=== PATIENT | male | born 1940 | race Caucasian/White ===

== ENCOUNTER → 2020-01-29 08:38 | Outpatient (BNVA) | payer MEDICARE, SELFPAY | PROVIDERS: Family Provider Family Medicine; PCP Family Medicine; Visit Provider Dermatology | DX: Z79.899 Other long term (current) drug therapy (principal) | CPT/HCPCS: 80061 ==

== ENCOUNTER 2020-05-16 17:56 | Inpatient (IN) | payer MEDICARE, SELFPAY ==
[2020-05-16] VITALS (7 sets, daily range): BP systolic 102–199; BP diastolic 57–68; PULSE 70–85; RESP 17–18; TEMP 36.6–37.7; O2SAT 96–196; BMI 19.0
--- NOTE | 2020-05-16 18:29 | XRR_ITS ---
PROCEDURE INFORMATION: Exam: XR Chest, 1 View Exam date and time: 05/16/2020 6:38 PM Age: 80 years old Clinical indication: Dyspnea; Additional info: Weakness TECHNIQUE: Imaging protocol: XR of the chest Views: 1 view. COMPARISON: CR Chest 1 [place] [id number] 12/28/2017 11:19 AM FINDINGS: Lungs: Unremarkable. No consolidation. Pleural space: Unremarkable. No pleural effusion. No pneumothorax. Heart/Mediastinum: Unremarkable. No cardiomegaly. Bones/joints: Unremarkable. XR/XR chest 1V portable [id number] IMPRESSION: No acute findings.
--- NOTE | 2020-05-16 18:31 | ED_ITS ---
Documented by User: JAJA Campbell 05/17/20 04:50 HPI - Weakness General: Chief complaint: Weakness Stated complaint: POSS STROKE SYMPTOMS Time Seen by Provider: 05/16/20 18:29 History of Present Illness: HPI Narrative: Patient is a 80-year-old male who comes to the ED with generalized weakness, low blood pressure and leg swelling. Patient has a past medical history of prior DVTs, GERD, hypertension, hyperlipidemia. Patient says approximately 2 to 3 days ago started noticing increased generalized weakness and low blood pressure. Patient also says he has had an increase in bilateral leg swelling with more severe swelling in the right leg. He also endorses having some increased shortness of breath upon exertion over the past couple days as well. Patient has also had diarrhea for approximately 2 weeks, but denies constipation or blood in the stool. He is had some nausea the past couple days as well with no episodes of emesis. Patient also describes having some trapezius muscle pain bilaterally. Denies fever, chi lls, chest pain, abdominal pain, dysuria or hematuria. Patient does endorse not drinking enough fluids daily. Associated symptoms: Reports nausea; Denies chest pain, chills, dysuria, fever(s), headache(s) or vomiting Review of Systems Const: Reports: fatigue; Denies: fever(s) or chills Eyes: Denies: change in vision or eye discomfort ENMT: Denies: throat pain, odynophagia, nasal discharge or nasal congestion Card: Reports: edema and dyspnea on exertion; Denies: chest pain, palpitations, swelling of feet/ankles or orthopnea Resp: Denies: dyspnea, productive cough or non-productive cough GI: Reports: nausea and diarrhea; Denies: abdominal pain, vomiting, constipation or hematochezia : Denies: flank pain, difficulty urinating, dysuria or hematuria Musc: Reports: extremity swelling (Lower extremity edema bilaterally. Right leg more edema than left.) and other (Bilateral trapezius muscle soreness.); Denies: neck pain or back pain Skin/Breast: Denies: rash or new lesions Neuro: Denies: headache(s), numbness in extremities or weakness in extremities PFS ED PFSH: Medical History Anemia Chronic kidney disease, stage III (moderate) Diarrhea Dyslipidemia GERD (gastroesophageal reflux disease) History of DVT (deep vein thrombosis) Hypertension Polyarteritis nodosa Skin cancer Surgical History History of hernia repair History of hip surgery Family History Other Cancer Social History Smoking and tobacco status: never smoked Alcohol intake: never Marital status: Physical Exam Const: COMMON NORMALS: patient oriented x3 and alert GENERAL APPEARANCE: cooperative and comfortable HENMT: COMMON NORMALS: normocephalic HEAD & SCALP: normocephalic MOUTH: Normal oral and palatal mucosa present THROAT: posterior oropharynx normal and uvula midline Eye: COMMON NORMALS: Equal, round and reactive pupils present PUPIL: Yes Equal, round and reactive pupils present Neck/C-Spine: COMMON NORMALS: supple GENERAL: Yes normal visual inspection Resp: COMMON NORMALS: normal respiratory effort, No retractions, No use of accessory muscles and clear to auscultation bilaterally AUSCULTATION: clear to auscultation bilaterally Cardio: COMMON NORMALS: regular rate, regular rhythm, S1 normal heart sound present, S2 normal heart sound present, No gallops present (Cardio), No clicks present (Cardio), No murmurs present (Cardio) and Peripheral pulses 2+ throughout RATE: regular rate RHYTHM: regular rhythm HEART SOUNDS: S1 normal heart sound present and S2 normal heart sound present PERIPHERAL PULSES: Peripheral pulses 2+ throughout GI: COMMON NORMALS: Normal to inspection, nondistended, normoactive bowel sounds present, Soft to palpation, non-tender and no masses PALPATION: Yes Soft to palpation : COMMON NORMALS: Yes no CVA tenderness BLADDER/KIDNEY EXAM: Yes no CVA tenderness Back/Pelvis: COMMON NORMALS: no CVA tenderness Extremity: GENERAL: Yes normal exam except as noted and Yes edema (Right lower extremity edema 3+ pitting. Left lower extremity 2+ pitting) Neuro: COMMON NORMALS: patient oriented x3 and moves all extremities SENSORIUM/ORIENTATION: Yes alert Skin: GENERAL SKIN EXAM: dry skin Procedures Stool Hemoccult Procedural Steps Taken: stool placed in appropriate test area, developer placed on stool and control areas and controls appropriately positive and negative Hemoccult result: negative Additional Comments: Course Vital Signs: Vital signs: Vital Signs Temperature 98.6 F 05/17/20 04:10 Pulse Rate 66 05/17/20 04:45 Respiratory Rate 13 05/17/20 04:45 Blood Pressure 145/74 05/17/20 04:45 Pulse Oximetry 98 05/17/20 04:45 MDM - Weakness MDM Narrative: Medical decision making narrative: pt is a 80-year-old male comes to the ED with generalized weakness and bilateral leg edema. Labs are drawn. In the ED his hemoglobin was 4.2. He also had a creatinine of 3.6, and carbon dioxide of 13. BNP was 7835. CV venous duplex lower extremity showed a blood clot in the right peroneal vein. Chest x-ray showed no acute findings. CT of the head showed no acute intracranial abnormalities. CT of abdomen pelvis showed cardiomegaly along with soft tissue anasarca and intraperitoneal ascites raises concern for congestive heart failure. EKG showed sinus rhythm with no ST segment elevation or depression seen. Stool Hemoccult test was negative. I discussed patient case with Dr. Guido due to complexity and severity of patient he helped manage care of patient. 2 units of blood were given here in the ED. Dr. Guido placed the admit orders for patient. Lab Data: Attestation: I reviewed the patient's lab results. Lab results narrative: Patient had a negative stool Hemoccult test while here in the ED. Labs: Lab Results 05/16/20 05/16/20 05/16/20 Range/Units 19:16 19:16 19:16 WBC 3.9 L (4.0-10.0) 10^3/ uL RBC 1.46 L (4.1-5.3) 10^6/u L Hgb 4.2 L* (11.7-16.6) g/dL Hct 15.2 L* (42.0-52.0) % MCV 104.1 H (80-94) fL MCH 28.8 (28.0-34.0) pg MCHC 27.6 L (30.0-36.0) g/dL RDW 16.3 H (12.1-15.1) % Plt Count 223 (130-400) 10^3/c mm MPV 9.2 (7.4-10.4) fL Neut % (Auto) 83.7 % Lymph % (Auto) 9.9 % [place] % (Auto) 5.4 % Eos % (Auto) 0.5 % Baso % (Auto) 0.0 % Neut # (Auto) 3.28 (1.8-7.7) 10^3/u L Lymph # (Auto) 0.4 L (0.8-4.8) 10^3/u L [place] # (Auto) 0.2 (0.2-0.9) 10^3/u L Eos # (Auto) 0.0 (0.0-0.8) 10^3/u L Baso # (Auto) 0.0 (0.0-0.1) 10^3/u L Nucleated RBC % (a uto) 0 % Nucleated RBCs # 0.0 /100WBC ESR (0-10) mm/hr Specimen Type Sample Site ABG pH (7.35-7.45) ABG pCO2 (35-45) mmHg ABG pO2 (80.0-100.0) mmH g ABG HCO3 (22-26) mmol/L [employer] Associate ID Sodium 138 (136-145) mmol/L Potassium 3.9 (3.5-5.1) mmol/L Chloride 108 H (98-107) mmol/L Carbon Dioxide 13 L (22-29) mmol/L Anion Gap 20.9 H (5-19) BUN 53 H (8-23) mg/dL Creatinine 3.6 H (0.7-1.2) mg/dL GFR Calculation Not Reportable Glucose 117 H (65-115) mg/dL Calculated Osmolal ity 285 (285-295) mOsm/k g Lactic Acid (0.5-2.2) mmol/L Calcium 6.5 L (8.5-10.5) mg/dL Phosphorus (2.5-4.5) mg/dL Magnesium (1.7-2.3) mg/dL Iron (59-158) ug/dL Ferritin (30-400) ng/mL Total Bilirubin 0.2 (0.15-1.2) mg/dL AST 9 (0-40) U/L ALT 6 (0-41) U/L Alkaline Phosphata se 78 (40-130) IU/L Lactate Dehydrogen ase (135-225) U/L Creatine Kinase (39-308) U/L Troponin T Baselin e 311 H* (0-15) ng/L Troponin T 120 Min [place] (0-15) ng/L Delta Troponin T (0-10) ABS# C-Reactive Protein (0.0-4.9) mg/L NT-Pro-B Natriuret Pep 7835 H (0-450) pg/mL Total Protein 5.6 L (6.6-8.7) g/dL Albumin 3.8 (3.5-5.2) g/dL Globulin 1.8 (1.3-4.6) g/dL Vitamin B12 (232-1245) pg/mL 25-OH Vitamin D To [place] (30-100) ng/mL Folate (4.5-32.2) ng/mL TSH (0.27-4.20) uIU/ mL Blood Type Rho(D) Type Antibody Screen Crossmatch 05/16/20 05/16/20 05/16/20 Range/Units 19:16 19:16 19:16 WBC (4.0-10.0) 10^3/ uL RBC (4.1-5.3) 10^6/u L Hgb (11.7-16.6) g/dL Hct (42.0-52.0) % MCV (80-94) fL MCH (28.0-34.0) pg MCHC (30.0-36.0) g/dL RDW (12.1-15.1) % Plt Count (130-400) 10^3/c mm MPV (7.4-10.4) fL Neut % (Auto) % Lymph % (Auto) % [place] % (Auto) % Eos % (Auto) % Baso % (Auto) % Neut # (Auto) (1.8-7.7) 10^3/u L Lymph # (Auto) (0.8-4.8) 10^3/u L [place] # (Auto) (0.2-0.9) 10^3/u L Eos # (Auto) (0.0-0.8) 10^3/u L Baso # (Auto) (0.0-0.1) 10^3/u L Nucleated RBC % (a uto) % Nucleated RBCs # /100WBC ESR (0-10) mm/hr Specimen Type Sample Site ABG pH (7.35-7.45) ABG pCO2 (35-45) mmHg ABG pO2 (80.0-100.0) mmH g ABG HCO3 (22-26) mmol/L [employer] Associate ID Sodium (136-145) mmol/L Potassium (3.5-5.1) mmol/L Chloride (98-107) mmol/L Carbon Dioxide (22-29) mmol/L Anion Gap (5-19) BUN (8-23) mg/dL Creatinine (0.7-1.2) mg/dL GFR Calculation Glucose (65-115) mg/dL Calculated Osmolal ity (285-295) mOsm/k g Lactic Acid 1.9 (0.5-2.2) mmol/L Calcium (8.5-10.5) mg/dL Phosphorus 4.8 H (2.5-4.5) mg/dL Magnesium 1.1 L (1.7-2.3) mg/dL Iron 161 H (59-158) ug/dL Ferritin 326 (30-400) ng/mL Total Bilirubin (0.15-1.2) mg/dL AST (0-40) U/L ALT (0-41) U/L Alkaline Phosphata se (40-130) IU/L Lactate Dehydrogen ase 260 H (135-225) U/L Creatine Kinase 134 (39-308) U/L Troponin T Baselin e (0-15) ng/L Troponin T 120 Min [place] (0-15) ng/L Delta Troponin T (0-10) ABS# C-Reactive Protein 2.1 (0.0-4.9) mg/L NT-Pro-B Natriuret Pep (0-450) pg/mL Total Protein (6.6-8.7) g/dL Albumin (3.5-5.2) g/dL Globulin (1.3-4.6) g/dL Vitamin B12 923 (232-1245) pg/mL 25-OH Vitamin D To [place] 14 L (30-100) ng/mL Folate 7.5 (4.5-32.2) ng/mL TSH 2.88 (0.27-4.20) uIU/ mL Blood Type Rho(D) Type Antibody Screen Crossmatch 05/16/20 05/16/2020 Range/Units 19:50 20:45 21:29 WBC (4.0-10.0) 10^3/ uL RBC (4.1-5.3) 10^6/u L Hgb (11.7-16.6) g/dL Hct (42.0-52.0) % MCV (80-94) fL MCH (28.0-34.0) pg MCHC (30.0-36.0) g/dL RDW (12.1-15.1) % Plt Count (130-400) 10^3/c mm MPV (7.4-10.4) fL Neut % (Auto) % Lymph % (Auto) % [place] % (Auto) % Eos % (Auto) % Baso % (Auto) % Neut # (Auto) (1.8-7.7) 10^3/u L Lymph # (Auto) (0.8-4.8) 10^3/u L [place] # (Auto) (0.2-0.9) 10^3/u L Eos # (Auto) (0.0-0.8) 10^3/u L Baso # (Auto) (0.0-0.1) 10^3/u L Nucleated RBC % (a uto) % Nucleated RBCs # /100WBC ESR (0-10) mm/hr Specimen Type Arterial Sample Site Radial, left ABG pH 7.26 L (7.35-7.45) ABG pCO2 27.9 L (35-45) mmHg ABG pO2 101.0 H (80.0-100.0) mmH g ABG HCO3 12.3 L (22-26) mmol/L Drake Test Pos Geric[employer] Aide Teacher ID [email or web address] Sodium (136-145) mmol/L Potassium (3.5-5.1) mmol/L Chloride (98-107) mmol/L Carbon Dioxide (22-29) mmol/L Anion Gap (5-19) BUN (8-23) mg/dL Creatinine (0.7-1.2) mg/dL GFR Calculation Glucose (65-115) mg/dL Calculated Osmolal ity (285-295) mOsm/k g Lactic Acid (0.5-2.2) mmol/L Calcium (8.5-10.5) mg/dL Phosphorus (2.5-4.5) mg/dL Magnesium (1.7-2.3) mg/dL Iron (59-158) ug/dL Ferritin (30-400) ng/mL Total Bilirubin (0.15-1.2) mg/dL AST (0-40) U/L ALT (0-41) U/L Alkaline Phosphata se (40-130) IU/L Lactate Dehydrogen ase (135-225) U/L Creatine Kinase (39-308) U/L Troponin T Baselin e (0-15) ng/L Troponin T 120 Min [place] 291.9 H (0-15) ng/L Delta Troponin T -19.1 L (0-10) ABS# C-Reactive Protein (0.0-4.9) mg/L NT-Pro-B Natriuret Pep (0-450) pg/mL Total Protein (6.6-8.7) g/dL Albumin (3.5-5.2) g/dL Globulin (1.3-4.6) g/dL Vitamin B12 (232-1245) pg/mL 25-OH Vitamin D To [place] (30-100) ng/mL Folate (4.5-32.2) ng/mL TSH (0.27-4.20) uIU/ mL Blood Type A Positive Rho(D) Type Positive Antibody Screen Negative Crossmatch See Detail 05/16/20 05/16/20 Range/Units 21:49 21:49 WBC 4.1 (4.0-10.0) 10^3/ uL RBC 1.35 L (4.1-5.3) 10^6/u L Hgb 4.0 L* (11.7-16.6) g/dL Hct 14.1 L* (42.0-52.0) % MCV 104.4 H (80-94) fL MCH 29.6 (28.0-34.0) pg MCHC 28.4 L (30.0-36.0) g/dL RDW 16.2 H (12.1-15.1) % Plt Count 208 (130-400) 10^3/c mm MPV 9.7 (7.4-10.4) fL Neut % (Auto) 82.4 % Lymph % (Auto) 10.8 % [place] % (Auto) 5.1 % Eos % (Auto) 0.7 % Baso % (Auto) 0.0 % Neut # (Auto) 3.36 (1.8-7.7) 10^3/u L Lymph # (Auto) 0.4 L (0.8-4.8) 10^3/u L [place] # (Auto) 0.2 (0.2-0.9) 10^3/u L Eos # (Auto) 0.0 (0.0-0.8) 10^3/u L Baso # (Auto) 0.0 (0.0-0.1) 10^3/u L Nucleated RBC % (a uto) 0 % Nucleated RBCs # 0.0 /100WBC ESR > 120 H (0-10) mm/hr Specimen Type Sample Site ABG pH (7.35-7.45) ABG pCO2 (35-45) mmHg ABG pO2 (80.0-100.0) mmH g ABG HCO3 (22-26) mmol/L [employer] Associate ID Sodium (136-145) mmol/L Potassium (3.5-5.1) mmol/L Chloride (98-107) mmol/L Carbon Dioxide (22-29) mmol/L Anion Gap (5-19) BUN (8-23) mg/dL Creatinine (0.7-1.2) mg/dL GFR Calculation Glucose (65-115) mg/dL Calculated Osmolal ity (285-295) mOsm/k g Lactic Acid (0.5-2.2) mmol/L Calcium (8.5-10.5) mg/dL Phosphorus (2.5-4.5) mg/dL Magnesium (1.7-2.3) mg/dL Iron (59-158) ug/dL Ferritin (30-400) ng/mL Total Bilirubin (0.15-1.2) mg/dL AST (0-40) U/L ALT (0-41) U/L Alkaline Phosphata se (40-130) IU/L Lactate Dehydrogen ase (135-225) U/L Creatine Kinase (39-308) U/L Troponin T Baselin e (0-15) ng/L Troponin T 120 Min [place] (0-15) ng/L Delta Troponin T (0-10) ABS# C-Reactive Protein (0.0-4.9) mg/L NT-Pro-B Natriuret Pep (0-450) pg/mL Total Protein (6.6-8.7) g/dL Albumin (3.5-5.2) g/dL Globulin (1.3-4.6) g/dL Vitamin B12 (232-1245) pg/mL 25-OH Vitamin D To [place] (30-100) ng/mL Folate (4.5-32.2) ng/mL TSH (0.27-4.20) uIU/ mL Blood Type Rho(D) Type Antibody Screen Crossmatch Imaging Data^: CXR: Attestation: I personally reviewed and interpreted this imaging study as follows: Radiologist's impression: [address] [address] XRay Report Signed Patient: Good Alegre Unit #: [id number] : 1940 Age/Sex: 80 / M ADM Date: 05/16/20 Loc: ER Room/Bed: Attending Dr: Ordering Provider/Ordering MD: Caesar Vick Date of Service: 05/16/20 Procedure(s): XR chest 1V portable [id number] Accession Number(s): [id number] Report Number: [id number] PROCEDURE INFORMATION: Exam: XR Chest, 1 View Exam date and time: 05/16/2020 6:38 PM Age: 80 years old Clinical indication: Dyspnea; Additional info: Weakness TECHNIQUE: Imaging protocol: XR of the chest Views: 1 view. COMPARISON: CR Chest 1 [place] [id number] 12/28/2017 11:19 AM FINDINGS: Lungs: Unremarkable. No consolidation. Pleural space: Unremarkable. No pleural effusion. No pneumothorax. Heart/Mediastinum: Unremarkable. No cardiomegaly. Bones/joints: Unremarkable. XR/XR chest 1V portable [id number] IMPRESSION: No acute findings. Dictated By: Mikey Drake Signed By: Mikey Drake Signed Date/Time: 05/16/201908 DD/ 06 US Vascular: Attestation: I personally reviewed and interpreted this imaging study as follows: Radiologist's impression: Ultrasound venous duplex bilateral lower extremities.?Prelim report. DVT seen on right leg in the popliteal. CT Head: Attestation: I personally reviewed and interpreted this imaging study as follows: Radiologist's impression: [address] [address] [address] Scan Report Signed Patient: Good Alegre Unit #: [id number] : 1940 Age/Sex: 80 / M ADM Date: 05/16/20 Loc: ER Room/Bed: Attending Dr: Ordering Provider/Ordering MD: Caesar Vick Date of Service: 05/16/20 Procedure(s): CT head wo con* [id number] Accession Number(s): [id number] Report Number: [id number] PROCEDURE INFORMATION: Exam: CT Head Without Contrast Exam date and time: 05/16/2020 8:17 PM Age: 80 years old Clinical indication: Patient HX: Weakness, hypotensive TECHNIQUE: Imaging protocol: Computed tomography of the head without contrast. Radiation optimization: All CT scans at this facility use at least one of these dose optimization techniques: automated exposure control; mA and/or kV adjustment per patient size (includes targeted exams where dose is matched to clinical indication); or iterative reconstruction. COMPARISON: No relevant prior studies available. RADIATION DOSE METRICS: Total DLP (mGy-cm): 854.92 FINDINGS: Brain: There is volume loss and periventricular low density compatible with chronic small vessel disease changes. There is no acute hemorrhage, edema or mass effect. Ventricles: Normal. No ventriculomegaly. Bones/joints: Unremarkable. No acute fracture. Sinuses: Visualized sinuses are unremarkable. No fluid levels. Mastoid air cells: There is patchy opacification left mastoid air cells. The right mastoid air cells are clear. Soft tissues: Unremarkable. CT/CT head wo con* [id number] IMPRESSION: 1. No acute intracranial abnormality. 2. There is patchy opacification left mastoid air cells. Radiation Dose CTDIVOL = (mGy): DLP = 854.92 (mGy-cm) Dictated By: Shavonne Salas Signed By: Shavonne Salas Signed Date/Time: 05/16/202052 DD/ 50 CT Abd/Pel: Attestation: I personally reviewed and interpreted this imaging study as follows: Radiologist's impression: [facility] [address] [place] [address] CT Scan Report Signed Patient: Good Alegre Unit #: [id number] : 1940 Age/Sex: 80 / M ADM Date: 05/16/20 Loc: ER Room/Bed: Attending Dr: Ordering Provider/Ordering MD: Caesar Vick Date of Service: 05/16/20 Procedure(s): CT abdomen pelvis wo con [id number] Accession Number(s): [id number] Report Number: [id number] PROCEDURE INFORMATION: Exam: CT Abdomen And Pelvis Without Contrast Exam date and time: 05/16/2020 8:17 PM Age: 80 years old Clinical indication: Prior surgery; Surgery date: 6+ months; Surgery type: Pelvis, hernia; Patient HX: Wt loss, hypotensive - diarrhea x 2 weeks TECHNIQUE: Imaging protocol: Computed tomography of the abdomen and pelvis without contrast. Radiation optimization: All CT scans at this facility use at least one of these dose optimization techniques: automated exposure control; mA and/or kV adjustment per patient size (includes targeted exams where dose is matched to clinical indication); or iterative reconstruction. COMPARISON: US Abdomen* [id number] 11/07/2016 7:22 AM RADIATION DOSE METRICS: Total DLP (mGy-cm): 265.21 FINDINGS: Pleural space: There is a trace right pleural effusion. Heart: Cardiomegaly. Liver: Incidental splenic and hepatic calcified granulomata. Gallbladder and bile ducts: The gallbladder is distended. Gallbladder wall is not well seen. Pancreas: Pancreas is not well seen. Spleen: Normal. No splenomegaly. Adrenals: Normal. No mass. Kidneys and ureters: Normal. No hydronephrosis. Stomach and bowel: Colonic constipation is present. Appendix: No evidence of appendicitis. Intraperitoneal space: There is a small amount of ascites in the abdomen/pelvis. Vasculature: Calcified plaque is present within multiple vascular structures. Lymph nodes: Unremarkable. No enlarged lymph nodes. Bladder: Unremarkable as visualized. Reproductive: Unremarkable as visualized. Bones/joints: Chronic pelvic fractures. There is a fixation screws through the right sacroiliac joint. Soft tissues: There is soft tissue anasarca. CT/CT abdomen pelvis wo con [id number] IMPRESSION: 1. Cardiomegaly with soft tissue anasarca and intraperitoneal ascites raises concern for congestive heart failure. Please correlate clinically. There is a trace right pleural effusion. 2. The gallbladder is distended and the gallbladder wall is not well seen. Consider right upper quadrant ultrasound for further evaluation as clinically warranted. 3. Colonic constipation is present. Radiation Dose CTDIVOL = (mGy): DLP = 265.21 (mGy-cm) Dictated By: Myra Calix MD Signed By: Myra Calix MD Signed Date/Time: 05/16/202055 DD/ 54 EKG Data^: EKG 1: Attestation: I personally reviewed and interpreted this EKG as follows: EKG interpretation date: 05/16/20 Interpretation: Sinus rhythm with sinus arrhythmia, 80 bpm, no ST segment elevation or depression seen. Discharge Plan Discharge Patient Disposition: Admitted As Inpatient Admit Provider: Trino Crocker Clinical Impression: Anemia Qualifiers: Anemia type: unspecified type Qualified Code(s): D64.9 - Anemia, unspecified Condition: Stable Discharge Date/Time: 05/17/20 02:35 Coding Level of Care Code ED Planning Feeder for Chg Fwd Exam Comprehensive Documented by User: Aftab Guido DO 05/17/20 05:05 HPI - Weakness General: Chief complaint: Weakness Stated complaint: POSS STROKE SYMPTOMS Time Seen by Provider: 05/16/20 18:29 PFSH ED PFSH: Medical History Anemia Chronic kidney disease, stage III (moderate) Diarrhea Dyslipidemia GERD (gastroesophageal reflux disease) History of DVT (deep vein thrombosis) Hypertension Polyarteritis nodosa Skin cancer Surgical History History of hernia repair History of hip surgery Family History Other Cancer Social History Smoking and tobacco status: never smoked Alcohol intake: never Marital status: Course Consultations: Consultation #1: Obi Vital Signs: Vital signs: Vital Signs Temperature 98.6 F 05/17/20 04:10 Pulse Rate 66 05/17/20 04:45 Respiratory Rate 13 05/17/20 04:45 Blood Pressure 145/74 05/17/20 04:45 Pulse Oximetry 98 05/17/20 04:45 MDM - Weakness MDM Narrative: Medical decision making narrative: 80-year-old male checked out to be my Mr. KAMILA Vick. I agree with his history, evaluation, and work-up. The patient was found to be mildly hypotensive, with a hemoglobin of 4.2. His BUN and creatinine are significantly elevated. His bicarbonate level is down to 13. His chest x-ray and CT of the belly are indicative of congestive heart failure. His troponin was significantly elevated as well. Believe most of the lab abnormalities have to do with a severely low hemoglobin. Hemoccult was negative in the ER. No evidence of GI bleeding by history either. His hemoglobin was 8 last August. He has experienced significant weight loss recently. On further investigation, he has not history of polyarteritis nodosa, and has been on immune modifying drugs. It is feasible that he could have bone marrow failure leading to his profound anemia. He is crossmatched for 2 units and transfusion is begun in the ER. We will get a repeat hemoglobin following those 2 units, to see how many more units he may need, and will need to watch for fluid overload as well. Hospitalist was consulted, and is seen the patient in the ER. Lab Data: Labs: Lab Results 05/16/20 05/16/20 05/16/20 Range/Units 19:16 19:16 19:16 WBC 3.9 L (4.0-10.0) 10^3/ uL RBC 1.46 L (4.1-5.3) 10^6/u L Hgb 4.2 L* (11.7-16.6) g/dL Hct 15.2 L* (42.0-52.0) % MCV 104.1 H (80-94) fL MCH 28.8 (28.0-34.0) pg MCHC 27.6 L (30.0-36.0) g/dL RDW 16.3 H (12.1-15.1) % Plt Count 223 (130-400) 10^3/c mm MPV 9.2 (7.4-10.4) fL Neut % (Auto) 83.7 % Lymph % (Auto) 9.9 % [place] % (Auto) 5.4 % Eos % (Auto) 0.5 % Baso % (Auto) 0.0 % Neut # (Auto) 3.28 (1.8-7.7) 10^3/u L Lymph # (Auto) 0.4 L (0.8-4.8) 10^3/u L [place] # (Auto) 0.2 (0.2-0.9) 10^3/u L Eos # (Auto) 0.0 (0.0-0.8) 10^3/u L Baso # (Auto) 0.0 (0.0-0.1) 10^3/u L Nucleated RBC % (a uto) 0 % Nucleated RBCs # 0.0 /100WBC ESR (0-10) mm/hr Specimen Type Sample Site ABG pH (7.35-7.45) ABG pCO2 (35-45) mmHg ABG pO2 (80.0-100.0) mmH g ABG HCO3 (22-26) mmol/L [employer] Associate ID Sodium 138 (136-145) mmol/L Potassium 3.9 (3.5-5.1) mmol/L Chloride 108 H (98-107) mmol/L Carbon Dioxide 13 L (22-29) mmol/L Anion Gap 20.9 H (5-19) BUN 53 H (8-23) mg/dL Creatinine 3.6 H (0.7-1.2) mg/dL GFR Calculation Not Reportable Glucose 117 H (65-115) mg/dL Calculated Osmolal ity 285 (285-295) mOsm/k g Lactic Acid (0.5-2.2) mmol/L Calcium 6.5 L (8.5-10.5) mg/dL Phosphorus (2.5-4.5) mg/dL Magnesium (1.7-2.3) mg/dL Iron (59-158) ug/dL Ferritin (30-400) ng/mL Total Bilirubin 0.2 (0.15-1.2) mg/dL AST 9 (0-40) U/L ALT 6 (0-41) U/L Alkaline Phosphata se 78 (40-130) IU/L Lactate Dehydrogen ase (135-225) U/L Creatine Kinase (39-308) U/L Troponin T Baselin e 311 H* (0-15) ng/L Troponin T 120 Min [place] (0-15) ng/L Delta Troponin T (0-10) ABS# C-Reactive Protein (0.0-4.9) mg/L NT-Pro-B Natriuret Pep 7835 H (0-450) pg/mL Total Protein 5.6 L (6.6-8.7) g/dL Albumin 3.8 (3.5-5.2) g/dL Globulin 1.8 (1.3-4.6) g/dL Vitamin B12 (232-1245) pg/mL 25-OH Vitamin D [place] (30-100) ng/mL Folate (4.5-32.2) ng/mL TSH (0.27-4.20) uIU/ mL Blood Type Rho(D) Type Antibody Screen Crossmatch 05/16/20 05/16/20 05/16/20 Range/Units 19:16 19:16 19:16 WBC (4.0-10.0) 10^3/ uL RBC (4.1-5.3) 10^6/u L Hgb (11.7-16.6) g/dL Hct (42.0-52.0) % MCV (80-94) fL MCH (28.0-34.0) pg MCHC (30.0-36.0) g/dL RDW (12.1-15.1) % Plt Count (130-400) 10^3/c mm MPV (7.4-10.4) fL Neut % (Auto) % Lymph % (Auto) % [place] % (Auto) % Eos % (Auto) % Baso % (Auto) % Neut # (Auto) (1.8-7.7) 10^3/u L Lymph # (Auto) (0.8-4.8) 10^3/u L [place] # (Auto) (0.2-0.9) 10^3/u L Eos # (Auto) (0.0-0.8) 10^3/u L Baso # (Auto) (0.0-0.1) 10^3/u L Nucleated RBC % (a uto) % Nucleated RBCs # /100WBC ESR (0-10) mm/hr Specimen Type Sample Site ABG pH (7.35-7.45) ABG pCO2 (35-45) mmHg ABG pO2 (80.0-100.0) mmH g ABG HCO3 (22-26) mmol/L [employer] Associate ID Sodium (136-145) mmol/L Potassium (3.5-5.1) mmol/L Chloride (98-107) mmol/L Carbon Dioxide (22-29) mmol/L Anion Gap (5-19) BUN (8-23) mg/dL Creatinine (0.7-1.2) mg/dL GFR Calculation Glucose (65-115) mg/dL Calculated Osmolal ity (285-295) mOsm/k g Lactic Acid 1.9 (0.5-2.2) mmol/L Calcium (8.5-10.5) mg/dL Phosphorus 4.8 H (2.5-4.5) mg/dL Magnesium 1.1 L (1.7-2.3) mg/dL Iron 161 H (59-158) ug/dL Ferritin 326 (30-400) ng/mL Total Bilirubin (0.15-1.2) mg/dL AST (0-40) U/L ALT (0-41) U/L Alkaline Phosphata se (40-130) IU/L Lactate Dehydrogen ase 260 H (135-225) U/L Creatine Kinase 134 (39-308) U/L Troponin T Baselin e (0-15) ng/L Troponin T 120 Min [place] (0-15) ng/L Delta Troponin T (0-10) ABS# C-Reactive Protein 2.1 (0.0-4.9) mg/L NT-Pro-B Natriuret Pep (0-450) pg/mL Total Protein (6.6-8.7) g/dL Albumin (3.5-5.2) g/dL Globulin (1.3-4.6) g/dL Vitamin B12 923 (232-1245) pg/mL 25-OH Vitamin D To kosta 14 L (30-100) ng/mL Folate 7.5 (4.5-32.2) ng/mL TSH 2.88 (0.27-4.20) uIU/ mL Blood Type Rho(D) Type Antibody Screen Crossmatch 05/16/20 05/16/20 05/16/20 Range/Units 19:50 20:45 21:29 WBC (4.0-10.0) 10^3/ uL RBC (4.1-5.3) 10^6/u L Hgb (11.7-16.6) g/dL Hct (42.0-52.0) % MCV (80-94) fL MCH (28.0-34.0) pg MCHC (30.0-36.0) g/dL RDW (12.1-15.1) % Plt Count (130-400) 10^3/c mm MPV (7.4-10.4) fL Neut % (Auto) % Lymph % (Auto) % [place] % (Auto) % Eos % (Auto) % Baso % (Auto) % Neut # (Auto) (1.8-7.7) 10^3/u L Lymph # (Auto) (0.8-4.8) 10^3/u L [place] # (Auto) (0.2-0.9) 10^3/u L Eos # (Auto) (0.0-0.8) 10^3/u L Baso # (Auto) (0.0-0.1) 10^3/u L Nucleated RBC % (a uto) % Nucleated RBCs # /100WBC ESR (0-10) mm/hr Specimen Type Arterial Sample Site Radial, left ABG pH 7.26 L (7.35-7.45) ABG pCO2 27.9 L (35-45) mmHg ABG pO2 101.0 H (80.0-100.0) mmH g ABG HCO3 12.3 L (22-26) mmol/L Drake Test Pos Gericare Aide Teacher ID [email or web address] Sodium (136-145) mmol/L Potassium (3.5-5.1) mmol/L Chloride (98-107) mmol/L Carbon Dioxide (22-29) mmol/L Anion Gap (5-19) BUN (8-23) mg/dL Creatinine (0.7-1.2) mg/dL GFR Calculation Glucose (65-115) mg/dL Calculated Osmolal ity (285-295) mOsm/k g Lactic Acid (0.5-2.2) mmol/L Calcium (8.5-10.5) mg/dL Phosphorus (2.5-4.5) mg/dL Magnesium (1.7-2.3) mg/dL Iron (59-158) ug/dL Ferritin (30-400) ng/mL Total Bilirubin (0.15-1.2) mg/dL AST (0-40) U/L ALT (0-41) U/L Alkaline Phosphata se (40-130) IU/L Lactate Dehydrogen ase (135-225) U/L Creatine Kinase (39-308) U/L Troponin T Baselin e (0-15) ng/L Troponin T 120 Min [place] 291.9 H (0-15) ng/L Delta Troponin T -19.1 L (0-10) ABS# C-Reactive Protein (0.0-4.9) mg/L NT-Pro-B Natriuret Pep (0-450) pg/mL Total Protein (6.6-8.7) g/dL Albumin (3.5-5.2) g/dL Globulin (1.3-4.6) g/dL Vitamin B12 (232-1245) pg/mL 25-OH Vitamin D To [place] (30-100) ng/mL Folate (4.5-32.2) ng/mL TSH (0.27-4.20) uIU/ mL Blood Type A Positive Rho(D) Type Positive Antibody Screen Negative Crossmatch See Detail 05/16/20 05/16/20 Range/Units 21:49 21:49 WBC 4.1 (4.0-10.0) 10^3/ uL RBC 1.35 L (4.1-5.3) 10^6/u L Hgb 4.0 L* (11.7-16.6) g/dL Hct 14.1 L* (42.0-52.0) % MCV 104.4 H (80-94) fL MCH 29.6 (28.0-34.0) pg MCHC 28.4 L (30.0-36.0) g/dL RDW 16.2 H (12.1-15.1) % Plt Count 208 (130-400) 10^3/c mm MPV 9.7 (7.4-10.4) fL Neut % (Auto) 82.4 % Lymph % (Auto) 10.8 % [place] % (Auto) 5.1 % Eos % (Auto) 0.7 % Baso % (Auto) 0.0 % Neut # (Auto) 3.36 (1.8-7.7) 10^3/u L Lymph # (Auto) 0.4 L (0.8-4.8) 10^3/u L [place] # (Auto) 0.2 (0.2-0.9) 10^3/u L Eos # (Auto) 0.0 (0.0-0.8) 10^3/u L Baso # (Auto) 0.0 (0.0-0.1) 10^3/u L Nucleated RBC % (a uto) 0 % Nucleated RBCs # 0.0 /100WBC ESR > 120 H (0-10) mm/hr Specimen Type Sample Site ABG pH (7.35-7.45) ABG pCO2 (35-45) mmHg ABG pO2 (80.0-100.0) mmH g ABG HCO3 (22-26) mmol/L [employer] Associate ID Sodium (136-145) mmol/L Potassium (3.5-5.1) mmol/L Chloride (98-107) mmol/L Carbon Dioxide (22-29) mmol/L Anion Gap (5-19) BUN (8-23) mg/dL Creatinine (0.7-1.2) mg/dL GFR Calculation Glucose (65-115) mg/dL Calculated Osmolal ity (285-295) mOsm/k g Lactic Acid (0.5-2.2) mmol/L Calcium (8.5-10.5) mg/dL Phosphorus (2.5-4.5) mg/dL Magnesium (1.7-2.3) mg/dL Iron (59-158) ug/dL Ferritin (30-400) ng/mL Total Bilirubin (0.15-1.2) mg/dL AST (0-40) U/L ALT (0-41) U/L Alkaline Phosphata se (40-130) IU/L Lactate Dehydrogen ase (135-225) U/L Creatine Kinase (39-308) U/L Troponin T Baselin e (0-15) ng/L Troponin T 120 Min [place] (0-15) ng/L Delta Troponin T (0-10) ABS# C-Reactive Protein (0.0-4.9) mg/L NT-Pro-B Natriuret Pep (0-450) pg/mL Total Protein (6.6-8.7) g/dL Albumin (3.5-5.2) g/dL Globulin (1.3-4.6) g/dL Vitamin B12 (232-1245) pg/mL 25-OH Vitamin D To [place] (30-100) ng/mL Folate (4.5-32.2) ng/mL TSH (0.27-4.20) uIU/ mL Blood Type Rho(D) Type Antibody Screen Crossmatch Discharge Plan Discharge Patient Disposition: Admitted As Inpatient Admit Provider: Trino Crocker Clinical Impression: Anemia Qualifiers: Anemia type: unspecified type Qualified Code(s): D64.9 - Anemia, unspecified Condition: Stable Discharge Date/Time: 05/17/20 02:35 Coding Level of Care Code ED Planning Feeder for [place] Fwd Exam Comprehensive
--- NOTE | 2020-05-16 18:50 | USR_ITS ---
PROCEDURE INFORMATION: Exam: US Duplex Lower Extremity Veins, Bilateral Exam date and time: 05/16/2020 6:56 PM Age: 80 years old Clinical indication: Swelling (edema) of limb; Lower extremity, right; Patient HX: PT states he has had prior dvt in the past many years ago. ; Additional info: Leg swelling with clot history TECHNIQUE: Imaging protocol: Real-time duplex ultrasound of the extremities with 2-D wilson scale, color Doppler flow and spectral waveform analysis with image documentation. Complete exam focused on the bilateral lower extremity veins. COMPARISON: No relevant prior studies available. FINDINGS: Right deep veins: The right peroneal vein shows intraluminal thrombus and decreased flow distally. This finding is suspicious for venous thrombus in the peroneal vein. The right common femoral, profundus femoral, and popliteal veins show patency compressibility and flow without sonographic evidence of venous thrombosis. Right superficial veins: Saphenofemoral junction is patent without thrombus. Left deep veins: Unremarkable. The common femoral, femoral, proximal profunda femoral and popliteal veins are patent without thrombus. Normal Doppler waveforms. Normal compressibility and/or augmentation response. Left superficial veins: Saphenofemoral junction is patent without thrombus. Soft tissues: Soft tissue edema is seen in the left [place] US/[place] [id number] IMPRESSION: 1. Positive for venous thrombus in the right peroneal vein 2. The remainder of the examination is negative for venous thrombosis. 3. Soft tissue edema is seen in the left lower leg
[2020-05-16 19:24] LABS: Eosinophils % 0.5 %; Lymphocytes # 0.4 10^3/uL (0.8-4.8); Lymphocytes % 9.9 %; Mean Corpuscular HGB Conc 27.6 g/dL (30.0-36.0); Mean Corpuscular Hemoglobin 28.8 pg (28.0-34.0); Mean Corpuscular Volume 104.1 fL (80-94); Mean Platelet Volume 9.2 fL (7.4-10.4); Monocytes # 0.2 10^3/uL (0.2-0.9); Monocytes % 5.4 %; Neutrophils # 3.28 10^3/uL (1.8-7.7); Neutrophils % 83.7 %; Nucleated Red Blood Cells % 0 %; Platelet Count 223 10^3/cmm (130-400); Red Blood Count 1.46 10^6/uL (4.1-5.3); Red Cell Distribution Width 16.3 % (12.1-15.1); White Blood Count 3.9 10^3/uL (4.0-10.0)
[2020-05-16 19:39] LABS: Hemoglobin 4.2 g/dL (11.7-16.6)
[2020-05-16 19:40] LABS: Hematocrit 15.2 % (42.0-52.0)
--- NOTE | 2020-05-16 19:48 | CTR_ITS ---
PROCEDURE INFORMATION: Exam: CT Abdomen And Pelvis Without Contrast Exam date and time: 05/16/2020 8:17 PM Age: 80 years old Clinical indication: Prior surgery; Surgery date: 6+ months; Surgery type: Pelvis, hernia; Patient HX: Wt loss, hypotensive - diarrhea x 2 weeks TECHNIQUE: Imaging protocol: Computed tomography of the abdomen and pelvis without contrast. Radiation optimization: All CT scans at this facility use at least one of these dose optimization techniques: automated exposure control; mA and/or kV adjustment per patient size (includes targeted exams where dose is matched to clinical indication); or iterative reconstruction. COMPARISON: US Abdomen* [id number] 11/07/2016 7:22 AM RADIATION DOSE METRICS: Total DLP (mGy-cm): 265.21 FINDINGS: Pleural space: There is a trace right pleural effusion. Heart: Cardiomegaly. Liver: Incidental splenic and hepatic calcified granulomata. Gallbladder and bile ducts: The gallbladder is distended. Gallbladder wall is not well seen. Pancreas: Pancreas is not well seen. Spleen: Normal. No splenomegaly. Adrenals: Normal. No mass. Kidneys and ureters: Normal. No hydronephrosis. Stomach and bowel: Colonic constipation is present. Appendix: No evidence of appendicitis. Intraperitoneal space: There is a small amount of ascites in the abdomen/pelvis. Vasculature: Calcified plaque is present within multiple vascular structures. Lymph nodes: Unremarkable. No enlarged lymph nodes. Bladder: Unremarkable as visualized. Reproductive: Unremarkable as visualized. Bones/joints: Chronic pelvic fractures. There is a fixation screws through the right sacroiliac joint. Soft tissues: There is soft tissue anasarca. CT/CT abdomen pelvis wo con [id number] IMPRESSION: 1. Cardiomegaly with soft tissue anasarca and intraperitoneal ascites raises concern for congestive heart failure. Please correlate clinically. There is a trace right pleural effusion. 2. The gallbladder is distended and the gallbladder wall is not well seen. Consider right upper quadrant ultrasound for further evaluation as clinically warranted. 3. Colonic constipation is present. Radiation Dose CTDIVOL = (mGy): DLP = 265.21 (mGy-cm)
[2020-05-16 20:00] LABS: Troponin(5th) Baseline 311 ng/L (0-15)
[2020-05-16 20:08] LABS: Alanine Aminotransferase 6 U/L (0-41); Albumin Level 3.8 g/dL (3.5-5.2); Alkaline Phosphatase 78 IU/L (40-130); Anion Gap 20.9 (5-19); Aspartate Amino Transferase 9 U/L (0-40); Blood Urea Nitrogen 53 mg/dL (8-23); Calcium 6.5 mg/dL (8.5-10.5); Carbon Dioxide 13 mmol/L (22-29); Chloride 108 mmol/L (98-107); Globulin 1.8 g/dL (1.3-4.6); Glucose 117 mg/dL (65-115); NT Pro B Type Natriuretic Pept 7835 pg/mL (0-450); Osmolality Calculated 285 mOsm/kg (285-295); Potassium 3.9 mmol/L (3.5-5.1); Sodium 138 mmol/L (136-145); Total Bilirubin 0.2 mg/dL (0.15-1.2); Total Protein 5.6 g/dL (6.6-8.7)
--- NOTE | 2020-05-16 20:30 | ECG_ITS ---
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 Measurements Intervals [place] Rate: 80 P: -5 NM: 128 QRS: 53 QRSD: 86 T: 60 QT: 380 QTc: 439 Interpretive Statements SINUS RHYTHM WITH SINUS ARRHYTHMIA NONSPECIFIC T-WAVE ABNORMALITY Compared to ECG 12/28/2017 11:24:14 Ventricular premature complex(es) no longer present T-wave abnormality still present Electronically Signed On 05-18-2020 8:29:11 CDT by Gladys Bruner M.D. [id number]
--- NOTE | 2020-05-16 20:48 | PC.NURSE ---
PATIENT RETURNING FROM CT
[2020-05-16 20:54] LABS: ABG PCO2 27.9 mmHg (35-45); ABG PH Result 7.26 (7.35-7.45); Blood Gas Allen Test Pos; Blood Gas Sample Site Radial, left; Blood Gas Sample Type Arterial; HCO3 ABG 12.3 mmol/L (22-26)
[2020-05-16 20:58] LABS: Lactic Sepsis W/Reflex 1.9 mmol/L (0.5-2.2)
[2020-05-16] MEDS: diphenhydrAMINE 50 mg/mL SDV 1mL 25 MG IVP (21:06)
[2020-05-16] MEDS: acetaminophen 325 mg Tablet 650 MG PO (21:07)
[2020-05-16 21:57] LABS: Troponin 5 2HR 291.9 ng/L (0-15); Troponin 5 2HR Delta -19.1 ABS# (0-10)
[2020-05-16 22:13] LABS: Eosinophils % 0.7 %; Lymphocytes # 0.4 10^3/uL (0.8-4.8); Lymphocytes % 10.8 %; Mean Corpuscular HGB Conc 28.4 g/dL (30.0-36.0); Mean Corpuscular Hemoglobin 29.6 pg (28.0-34.0); Mean Corpuscular Volume 104.4 fL (80-94); Mean Platelet Volume 9.7 fL (7.4-10.4); Monocytes # 0.2 10^3/uL (0.2-0.9); Monocytes % 5.1 %; Neutrophils # 3.36 10^3/uL (1.8-7.7); Neutrophils % 82.4 %; Nucleated Red Blood Cells % 0 %; Platelet Count 208 10^3/cmm (130-400); Red Blood Count 1.35 10^6/uL (4.1-5.3); Red Cell Distribution Width 16.2 % (12.1-15.1); White Blood Count 4.1 10^3/uL (4.0-10.0)
[2020-05-16 22:18] LABS: Hematocrit 14.1 % (42.0-52.0)
--- NOTE | 2020-05-16 23:00 | PC.NURSE ---
PATIENT RESTING IN BED WITH FAMILY AT BEDSIDE. BLOOD INFUSING WITHOUT COMPLICATIONS. PATIENT GIVEN PO FLUIDS AND CRACKERS. NO NEEDS EXPRESSED
--- NOTE | 2020-05-16 23:53 | PM.HP ---
Providers/Chief Complaint Primary Care Provider: Maricarmen Meza MD Chief Complaint: POSS STROKE SYMPTOMS History of Present Illness Good Alegre is a 80 year old male presenting with gradual increase in tiredness over the last 2 to 3 months. Is gotten to the point where he is dizzy when he stands, short of breath when he exerts himself just a little bit. He reports he almost fainted today. He has had some ongoing diarrhea. He recently underwent an EGD and colonoscopy secondary to anemia and diarrhea. He states he has diarrhea about once a day. He was prescribed some fluconazole for what is presumed esophageal candidiasis but reports the rest of the evaluation was negative. He denies any chest pain, or fever. He has had some swelling of his feet. History is difficult to obtain from the patient, and the son that is present is not familiar with his history. He does endorse significant weight loss over the last 2 years of about 50 pounds Patient is able to relate to me that he has been on CellCept for quite some time but taken off 3 days ago or so and changed to hydroxychloroquine. He is on this for polyarteritis nodosa. While in the emergency department he was found to be significantly anemic, and transfusion of 6 units packed red blood cells was ordered. I have amended this to 3, with a recheck hemoglobin. Review of Systems General: Reports: 10 or more systems reviewed and unremarkable except in HPI and below Const: Reports: malaise; Denies: fever(s) or chills Eyes: Denies: change in vision ENMT: Denies: throat pain Card: Denies: chest pain Resp: Denies: dyspnea GI: Reports: nausea; Denies: abdominal pain : Denies: flank pain Musc: Reports: extremity pain Skin/Breast: Denies: rash Neuro: Denies: headache(s) Psych: Denies: anxiety Endo: Denies: polyuria Alberto/Lymph: Denies: easy bruising All/Imm: Denies: urticaria Medications/Allergies Home Medications Medication Instructions Recorded Confirmed Last Taken Type aspirin 81 mg tablet,delayed 81 mg PO ONCE 09/12/19 09/12/19 Unknown History release furosemide 20 mg tablet 10 mg PO QAM 09/12/19 09/12/19 Unknown History mycophenolate mofetil 500 mg tablet 1,000 mg PO BID 09/12/19 09/12/19 Unknown History nifedipine 30 mg tablet,extended 30 mg PO BID tab 09/12/19 09/12/19 Unknown History release 24 hr pantoprazole 40 mg tablet,delayed 40 mg PO ONCE 09/12/19 09/12/19 Unknown History release potassium chloride 10 mEq 10 meq PO ONCE tab 09/12/19 09/12/19 Unknown History tablet,extended release pravastatin 20 mg tablet 20 mg PO ONCE 09/12/19 09/12/19 Unknown History sucralfate 1 gram tablet 1 gm PO BID #60 tab 09/12/19 09/12/19 Unknown Rx ondansetron HCl 4 mg tablet 4 mg PO BID PRN #30 tab 10/18/19 Unknown Rx mirtazapine 30 mg tablet 30 mg PO .qhs #30 tab 01/28/20 Unknown Rx Allergies Allergy/AdvReac Type Severity Reaction Status Date / Time No Known Allergies Allergy Unverified 09/12/19 15:25 PFSH Acute PFSH: Medical History (Updated 05/17/20 @ 00:22 by Trino Crocker MD) Anemia Chronic kidney disease, stage III (moderate) Diarrhea Dyslipidemia GERD (gastroesophageal reflux disease) History of DVT (deep vein thrombosis) Hypertension Polyarteritis nodosa Skin cancer Surgical History (Updated 05/17/20 @ 00:14 by Trino Crocker MD) History of hernia repair History of hip surgery Family History (Updated 05/17/20 @ 00:00 by Trino Crocker MD) Other Cancer Social History Smoking and tobacco status: never smoked Alcohol intake: never Marital status: Vitals/I&O/Wt Last Vital Signs Temp 98.2 F 05/16/20 21:46 Pulse 70 05/16/20 21:46 Resp 17 05/16/20 21:46 BP 113/57 05/16/20 21:46 Pulse Ox 100 05/16/20 21:46 Weight last 48 hrs Weight 63.503 kg Physical Exam Narrative: EXAM NARRATIVE: General exam is a white male, no apparent distress, pale appearing HEENT: Pupils equally round. Oropharynx clear. Left ear with abnormality consistent with skin cancer. Neck is supple no lymphadenopathy or thyromegaly Cardiovascular regular rate and rhythm, no murmur Lungs clear no wheezing or crackles. Diminished breath sounds are noted bilaterally. Abdomen is soft nontender with positive bowel sounds. No obvious organomegaly was deferred Extremities no cyanosis clubbing. Significant edema present bilaterally right greater than left Skin no rash Neuro no obvious focal deficits Data : 05/16/20 21:49 05/16/20 19:16 Micro: Microbiology 05/16/20 19:16 Blood Culture - Preliminary Blood SPECIMEN COLLECTED Other data: MCV 104 ABG with pH 7.26, PCO2 28, PO2 101 Calcium 6.5, albumin 3.8. Troponin III 11 with repeat to [address] demonstrates some anasarca, trace right pleural effusion, constipation Venous duplex right peroneal vein DVT. CT head demonstrates no acute changes Chest x-ray no acute findings EKG normal sinus rhythm, normal axis, no acute changes A&P Assessment and plan (1) Anemia: Severe anemia is noted. Stool Hemoccult is negative in the emergency department. Repeat stool Hemoccult was ordered Patient relates he recently had an EGD and colonoscopy that was negative for any evidence of bleeding Note that he is on multiple medications that can be associated with anemia, specifically CellCept which can be associated with pure red cell aplasia Check LDH, haptoglobin, peripheral smear, CBC with manual differential, B12, folate, iron, TIBC, ferritin, serum protein electrophoresis, CRP, sedimentation rate, retic Transfuse 3 units of packed red blood cells, with hemoglobin and hematocrit following. Further transfusion to achieve a hemoglobin greater than 8. Watch for fluid overload. Status: Acute (2) DVT (deep venous thrombosis): DVT found in right leg which patient reports he has had a DVT before. This leg is chronically swollen according to the patient so chronicity is difficult to know. Secondary to severe anemia, will not anticoagulate currently until anemia has been corrected and then will consider. Status: Acute (3) Acute kidney injury: Acute on chronic renal failure. For now transfuse blood. CT abdomen pelvis demonstrated no obstruction. Check creatinine phosphokinase Monitor output, creatinine Check urinalysis Status: Acute (4) Metabolic acidosis: Likely secondary to renal failure Status: Acute Additional A&P Information Hypocalcemia, supplement. Check PTH, magnesium, phosphorus, 25-hydroxy vitamin D Elevated BNP. Check echocardiogram. polyarteritis nodosa. ~3 days ago was on CellCept and now getting some hydroxychloroquine. Holding these currently. Underlying chronic kidney disease stage III GERD continue Protonix History of chronic diarrhea apparently recently had colonoscopy Hyperlipidemia Skin cancer Full code Holding anticoagulation currently until hemoglobin deficiency has been replaced. Then will consider anticoagulation. Attestations Medical Necessity Statement*: Will need greater than 2 midnight stay for evaluation and treatment of severe anemia. Time Spent in Patient Care: Greater than 35 minutes Critical Care Time: 64 minutes spent in critical care time reviewing patient's history with physician, patient's family, examination of the patient. Patient with significant severe anemia, possible bone more abnormality, requiring high-volume of resuscitation with blood and high risk for decompensation morbidity and mortality. 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
[2020-05-17] VITALS (98 sets, daily range): BP systolic 130–198; BP diastolic 74–122; PULSE 52–151; RESP 7–20; TEMP 36.4–37.2; O2SAT 81–100
--- NOTE | 2020-05-17 00:30 | ECG_ITS ---
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 Measurements Intervals [place] Rate: 72 P: -28 MO: 120 QRS: 18 QRSD: 85 T: 62 QT: 398 QTc: 437 Interpretive Statements SINUS RHYTHM WITH OCCASIONAL VENTRICULAR PREMATURE COMPLEXES NONSPECIFIC T-WAVE ABNORMALITY Compared to ECG 05/16/2020 19:38:23 Ventricular premature complex(es) now present Sinus arrhythmia no longer present T-wave abnormality still present Electronically Signed On 05-18-2020 8:25:37 CDT by Gladys Bruner M.D. [email or web address] choice medical center of smith countyPrivate Practiceuniversity hospitals [facility].[employer]/store/NU/[id number] f
[2020-05-17 01:23] LABS: C Reactive Protein 2.1 mg/L (0.0-4.9); Creatine Phosphokinase 134 U/L (39-308); Ferritin 326 ng/mL (30-400); Folate Level 7.5 ng/mL (4.5-32.2); Iron 161 ug/dL (59-158); Lactate Dehydrogenase 260 U/L (135-225); Thyroid Stimulating Hormone 2.88 uIU/mL (0.27-4.20); Vitamin B12 923 pg/mL (232-1245)
[2020-05-17 02:07] LABS: 25 Hydroxy Vitamin D 14 ng/mL (30-100); Magnesium 1.1 mg/dL (1.7-2.3); Phosphorus 4.8 mg/dL (2.5-4.5)
[2020-05-17 02:31] LABS: Erythrocyte Sedimentation Rate > 120 mm/hr (0-10)
[2020-05-17 02:41] LABS: Troponin 5 6HR 280.7 ng/L (0-15); Troponin 5 6HR Delta -30.3 ng/L (0-12)
--- NOTE | 2020-05-17 02:45 | PC.NURSE ---
Received report from Tracy LEWIS. Went to tile picker patient from ED. Patient was placed on transport monitor et transferred to the ICU in a wheelchair with RN. Patient's son Jake was with patient. Patient arrived to ICU 5 at 0250 et ambulated with min assist to patient bed. Patient was then placed on bedside monitor et vitals obtained per protocol. Patient's son Jake was educated on plan of care, visiting hours et treatment goals. Jake was sent home with patients bottled medications. Physical assessment performed et recorded. Please see physical assessment et vital sign flowsheets for details.
[2020-05-17] MEDS: magnesium sulfate premix 2 GM/50 ML PIGGYBACK IV (03:51)
[2020-05-17] MEDS: calcium gluconate 0.1 gm/mL 10% SDV 10mL 1 GM IVP (03:52)
[2020-05-17 04:18] LABS: Calcium 6.5 mg/dL (8.5-10.5)
--- NOTE | 2020-05-17 05:10 | PC.NURSE ---
Please see documented physical assessment
[2020-05-17 05:30] LABS: Urine Appearance Clear (CLEAR); Urine Color Yellow (Yellow); pH Urine 5 (5-7)
[2020-05-17 05:31] LABS: SARS Covid-2 Antigen Negative (Negative)
[2020-05-17 05:31] LABS: Add Urine Microscopic? YES; Bilirubin Urine Neg (NEGATIVE); Blood Urine Neg (Negative); Glucose Urine UA Norm (Normal); Ketones Urine Negative (Negative); Leukocyte Esterase Urine Negative (Negative); Nitrate Urine Negative (Negative); Protein Urine 1+ (Negative); Urobilinogen Urine Norm (Negative)
[2020-05-17 05:38] LABS: Amorphous Sediment Urine TRACE; Bacteria Urine TRACE; Mucus Urine TRACE; RBC Urine 0-4 /hpf (0-2); Squamous Epithelial Cell Urine 0-4 (0-5); WBC Urine 0-4 /hpf (0-5)
[2020-05-17 05:39] LABS: Fine Granular Casts Urine 0-4 /lpf; Hyaline Casts Urine 0-4
--- NOTE | 2020-05-17 06:59 | PC.NURSE ---
Report given to
[2020-05-17] MEDS: pantoprazole DR 40 mg Tablet PO ×2 (08:07→16:33)
[2020-05-17 10:24] LABS: Unsaturated Iron Binding < 17 ug/dL (112-347)
[2020-05-17 10:25] LABS: Total Iron Binding Capacity < 178 mcg/dl
--- NOTE | 2020-05-17 10:52 | PM.PN ---
Vitals/I&O/Wt Last Vital Signs Temp 97.9 F 05/17/20 09:31 Pulse 66 05/17/20 09:30 Resp 10 L 05/17/20 09:30 BP 170/103 05/17/20 09:30 Pulse Ox 87 L 05/17/20 09:30 05/16/20 05/17/20 05/17/20 22:59 06:59 14:59 Intake Total 350 / 350 0 / 350 650 / 650 Output Total 700 / 700 Balance 350 / 350 0 / 350 -50 / -50 Weight last 48 hrs Weight 64.909 kg Weight 64.864 kg Weight 63.503 kg Data : 05/17/20 11:45 05/17/20 11:45 Micro: Microbiology 05/16/20 19:16 Blood Culture - Preliminary Blood SPECIMEN COLLECTED A&P Assessment and plan (1) Anemia: Status: Acute Qualifiers: Anemia type: unspecified type Qualified Code(s): D64.9 - Anemia, unspecified (2) DVT (deep venous thrombosis): DVT found in right leg which patient reports he has had a DVT before. This leg is chronically swollen according to the patient so chronicity is difficult to know. Secondary to severe anemia, will not anticoagulate currently until anemia has been corrected and then will consider. Status: Acute (3) Chronic kidney disease, stage III (moderate): Status: Acute (4) Acute kidney injury: Status: Acute (5) Metabolic acidosis: Likely secondary to renal failure Status: Acute (6) Immunosuppression: Status: Acute (7) Idiopathic parathyroidism: Status: Acute (8) Polyarteritis nodosa: Status: Acute Additional A&P Information Severe anemia: HemoGlobin on admission 4.7. Stool for occult blood was negative. Patient has received 3 units of PRBC transfusion. Repeat hemoglobin still awaited. ESR grossly elevated, haptoglobin was mildly elevated, iron panel not suggestive of iron deficiency anemia, ferritin 326, LDH mildly elevated. Results of electrophoresis awaited. Vitamin B12, folate levels within normal limits. We will check reticulocyte count, peripheral smear awaited. Cannot rule out hemolysis because of history of polyarteritis nodosa. For now we will give him 1 dose of stress dose of Solu-Medrol. Recheck hemoglobin after 3 transfusions are done. Goal hemoglobin around 8. Between transfusion we will give him Lasix. Because of severe anemia even after saturation 100% keep patient on 2 L nasal cannula. Patient relates he recently had an EGD and colonoscopy that was negative for any evidence of bleeding Note that he is on multiple medications that can be associated with anemia, specifically CellCept which can be associated with pure red cell aplasia Acute kidney injury: Continue transfusion for now. 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 Check renal Doppler, renal ultrasound. CT abdomen pelvis not concerning for any obstructive uropathy. Check urinalysis, urine lites, urine eosinophils, urine creatinine. HTN: Goal BP less than 140/90mmhg. Amlo 10 mg PO QD, hydralazine 25 mg PO TID.Unfortunately cannot give beta-clarke as patient heart rate has been running on the lower side. Echocardiogram has been ordered and results are awaited. Hypocalcemia, supplement. Check PTH, magnesium, phosphorus, 25-hydroxy vitamin D Elevated BNP. Check echocardiogram. Polyarteritis nodosa. ~3 days ago was on CellCept and now getting some hydroxychloroquine. Holding these currently. Underlying chronic kidney disease stage III GERD continue Protonix History of chronic diarrhea apparently recently had colonoscopy Hyperlipidemia Skin cancer Full code Holding anticoagulation currently until hemoglobin deficiency has been replaced. Then will consider anticoagulation. Attestations Medical Necessity Statement*: Severe anemia, acute on kidney injury Time Spent in Patient Care: Greater than 35 minutes (>than 50% of time spent in counselling and/or direct pt care on unit). Coding Level of Care Code Acute Non Cdl Driver for [facility] Fwd Diagnoses Anemia D64.9 Anemia type: unspecified type DVT (deep venous thrombosis) I82.409 Chronic kidney disease, stage III (moderate) N18.3 Acute kidney injury N17.9 Metabolic acidosis E87.2 Immunosuppression D89.9 Idiopathic parathyroidism E20.9 Polyarteritis nodosa M30.0
[2020-05-17] MEDS: sodium chloride 0.9% (100 ml) 100 ML 50 ML ×2 (11:21→14:55)
[2020-05-17] MEDS: amlodipine 10 mg Tablet PO (11:27)
[2020-05-17 11:53] LABS: Lymphocytes 4 %; Segmented Neutrophils 92 %; Total Cells Counted 100 (0-100)
[2020-05-17 11:54] LABS: Anisocytosis 2+; Hypochromasia 1+; Poikilocytosis 1+
[2020-05-17 11:55] LABS: Platelet Estimate Normal (Normal)
[2020-05-17 11:57] LABS: LAB Peripheral Smear Sent for Review
[2020-05-17] MEDS: FUROsemide 10 mg/mL SDV 2mL 20 MG IVP (12:08)
[2020-05-17 12:32] LABS: Complement C3 64 mg/dL (90-180)
[2020-05-17 12:35] LABS: Hepatitis A Antibody IgM Non-Reactive (Nonreactive); Hepatitis B Core AB, Total Non-Reactive (Nonreactive); Hepatitis B Surface AB 8.3 (0-8.5); Hepatitis B Surface Antigen Non-Reactive (Nonreactive); Hepatitis C Virus Antibody Non-Reactive (Nonreactive)
[2020-05-17 12:49] LABS: Alanine Aminotransferase < 5 U/L (0-41); Albumin Level 3.4 g/dL (3.5-5.2); Alkaline Phosphatase 77 IU/L (40-130); Anion Gap 20.8 (5-19); Aspartate Amino Transferase 10 U/L (0-40); Blood Urea Nitrogen 48 mg/dL (8-23); Calcium 6.6 mg/dL (8.5-10.5); Carbon Dioxide 13 mmol/L (22-29); Chloride 109 mmol/L (98-107); Globulin 1.7 g/dL (1.3-4.6); Glucose 82 mg/dL (65-115); Osmolality Calculated 285 mOsm/kg (285-295); Potassium 3.8 mmol/L (3.5-5.1); Sodium 139 mmol/L (136-145); Total Bilirubin 0.2 mg/dL (0.15-1.2); Total Protein 5.1 g/dL (6.6-8.7)
[2020-05-17 13:18] LABS: HIV 1 & 2 Antibody Non-Reactive (Non-Reactiv); HIV 1 & 2 Antigen Non-Reactive (Non-Reactiv)
[2020-05-17 14:00] LABS: Hematocrit 23.1 % (42.0-52.0); Hemoglobin 7.2 g/dL (11.7-16.6)
--- NOTE | 2020-05-17 14:00 | PC.NURSE ---
PATIENT IS VERY [place] AND DOES NOT SPEAK CLEARLY AT TIMES. HE IS RELUCTANT TO LET ME CLEAN HIM UP AND DOES NOT WANT TO BRUSH HIS TEETH TILL BEDTIME. I POINTED OUT THAT WHEN YOUR SICK ITS ALWAYS BEDTIME AND IT MIGHT HELP HIS NAUSEA TO HAVE A CLEAN MOUTH. PATIENT ATE HIS SHERBERT AND A BIT OF RICE AND VOMITED IT ON THE TRAY. SPRITE GIVEN PER REQUEST IV SITES TENDING TO BE LEAKY AT INSERTION POINTS. COBAN AND REDRESSED AND MINIMAL LEAK APPARENT DURING LAST TRANSFUSION. NEW IV SITE PLACED IN RIGHT AC WHEN ALL MEANS TO HELP LEAKING ON FA IV SITE WAS UNSUCCESSFUL. UPDATED. LABS DRAWN ONE HOUR AFTER BLOOD TRANSFUSION ENDED. PENDING RESULTS AT THIS TIME.
[2020-05-17 14:02] LABS: Magnesium 1.3 mg/dL (1.7-2.3)
[2020-05-17] MEDS: hyDRALAzine 25 mg Tablet PO ×2 (14:55→20:11)
[2020-05-17 18:54] LABS: Potassium, Radom Urine 7 mmol/L; Urine Creatinine 31 mg/dL (39-259); Urine Random Chloride 66 mmol/L; Urine Random Sodium 74 mmol/L
[2020-05-17 20:33] LABS: INR 1.04 (0.8-1.2)
[2020-05-18] VITALS (30 sets, daily range): BP systolic 106–158; BP diastolic 58–96; PULSE 51–88; RESP 8–20; TEMP 36.4–36.9; O2SAT 95–100
--- NOTE | 2020-05-18 | USCV_ITS ---
Good Alegre Age: 80 Gender: M : 1940 Exam Date: 05/18/2020 15:30 Ordering Phys: Dinh Garza MD Technologist: Gary Rangel [place] [facility] [place]: CHEST PAIN BP: 106 / 64 HR: 67 Rhythm: Sinus Technical Quality: Fair MEASUREMENTS (Male / Female) Normal Values 2D ECHO LV Diastolic Diameter PLAX 4.6 cm 4.2 - 5.9 / 3.9 - 5.3 cm LV Systolic Diameter PLAX 3.0 cm IVS Diastolic Thickness 1.5 cm 0.6 - 1.0 / 0.6 - 0.9 cm IVS Systolic Thickness 1.6 cm LVPW Diastolic Thickness 1.0 cm 0.6 - 1.0 / 0.6 - 0.9 cm LVPW Systolic Thickness 1.3 cm LVOT Diameter 2.0 cm LV Ejection Fraction 2D Teich 65.6 % LV Ejection Fraction MOD 2C 58.2 % LV Ejection Fraction 2C AL 57.9 % LA Diameter 3.1 cm LA Width 3.5 cm LA Height 3.8 cm RA Width 3.4 cm RA Height 5.3 cm Aorta at Sinotubular Diameter 1.4 cm M-MODE LV Diastolic Diameter MM 6.0 cm 4.2 - 5.9 / 3.9 - 5.3 cm LV Systolic Diameter MM 4.0 cm LV Ejection Fraction MM Teich 62.5 % IVS Diastolic Thickness MM 1.0 cm 0.6 - 1.0 / 0.6 - 0.9 cm IVS Systolic Thickness MM 1.1 cm LVPW Diastolic Thickness MM 0.8 cm 0.6 - 1.0 / 0.6 - 0.9 cm LVPW Systolic Thickness MM 1.7 cm RV Diastolic Diameter MM 1.2 cm Aortic Annulus Diameter 4.0 cm LA Ao Ratio MM 0.8 MV E Point Septal Separation 0.7 cm DOPPLER AV Peak Velocity 140.0 cm/s LVOT Peak Velocity 109.0 cm/s AV Area Cont Eq vti 2.3 cm squared AV Area Cont Eq pk 2.5 cm squared MV Area PHT 5.0 cm squared Mitral E to A Ratio 1.0 MV E' Velocity 10.0 cm/s Mitral E to MV E' Ratio 5.2 Mitral E to LV E' Lateral Ratio 5.2 Mitral E to LV E' Septal Ratio 5.3 TR Peak Velocity 166.0 cm/s TR Peak Gradient 11.0 mmHg TV Peak E Velocity 77.0 cm/s Right Atrial Pressure 3.0 mmHg Pulmonary Artery Systolic Pressu 14.0 mmHg PV Peak Velocity 72.0 cm/s FINDINGS Left Ventricle Normal left ventricular cavity size. Mild concentric left ventricular hypertrophy. Normal left ventricular systolic function. Left ventricular ejection fraction is estimated at 62%. No diagnostic regional wall motion abnormality. Normal diastolic function. Right Ventricle Normal right ventricular size and systolic function. Right ventricular systolic pressure 14 mmHg. Right Atrium Normal right atrial size. Right atrial pressure estimated at 3 mmHg. Left Atrium Upper normal left atrial size. Mitral Valve Mildly thickened mitral valve. No mitral valve stenosis. Trace mitral valve regurgitation. Aortic Valve Aortic valve not well visualized. No aortic valve stenosis. Mild aortic valve regurgitation. Tricuspid Valve Structurally normal tricuspid valve. Trace tricuspid valve regurgitation. Pulmonic Valve Pulmonic valve not well visualized. Pericardium Trivial pericardial effusion. No evidence of hemodynamic compromise. Aorta Normal-sized aortic valve. CONCLUSIONS 1. Normal left ventricular cavity size and systolic function. Mild concentric left ventricular hypertrophy. Left ventricular ejection fraction is estimated at 62%. No diagnostic regional wall motion abnormality. Normal diastolic function. 2. Normal right ventricular size and systolic function. 3. Mild aortic valve regurgitation. 4. Trivial pericardial effusion. 5. No prior similar studies to compare. Gladys Bruner MD (Electronically Signed) Final Date: 19 May 2020 12:57 S
--- NOTE | 2020-05-18 | USR_ITS ---
PROCEDURE INFORMATION: Exam: US Retroperitoneal; Complete; Kidneys and Bladder Exam date and time: 05/18/2020 2:02 PM Age: 80 years old Clinical indication: Other: Abnormal labs kidney failure; Additional info: Ckd TECHNIQUE: Imaging protocol: Real-time ultrasound of the retroperitoneum with image documentation. Complete exam focused on the kidneys and bladder. COMPARISON: US Abdomen* [id number] 11/07/2016 7:22 AM FINDINGS: Right kidney: The right kidney is small and echogenic with a length of 8.2 cm. There is no hydronephrosis. There is a simple cyst right kidney measuring 2.4 x 2.2 x 2.0 cm in size. No follow-up is necessary. No right perinephric fluid. Left kidney: The left kidney could not be visualized due to bowel gas artifact. Bladder: The bladder is visualized and is partially collapsed but otherwise unremarkable. Other findings: No right nephrolithiasis. US/US renal BI with bladder IMPRESSION: 1. Small echogenic right kidney compatible with medical renal disease without hydronephrosis. There is a simple cyst right kidney. 2. Nonvisualization of the left kidney due to extensive bowel gas artifact. 3. Partially collapsed bladder. Otherwise unremarkable appearance of the bladder. COMMENTS: Consistent with the [place]'s Incidental Findings Committee white paper (J Am Mickey Radiol 2018): Any incidental renal lesion less than 1.0 cm or classified as too small to characterize, or any incidental cystic renal lesion characterized as simple-appearing, is likely benign. No follow-up imaging is recommended for these lesions per consensus recommendations based on imaging criteria.
[2020-05-18 04:55] LABS: Hematocrit 32.1 % (42.0-52.0); Hemoglobin 10.3 g/dL (11.7-16.6); Lymphocytes # 0.1 10^3/uL (0.8-4.8); Lymphocytes % 4.1 %; Mean Corpuscular HGB Conc 32.1 g/dL (30.0-36.0); Mean Corpuscular Hemoglobin 31.6 pg (28.0-34.0); Mean Corpuscular Volume 98.5 fL (80-94); Mean Platelet Volume 10.3 fL (7.4-10.4); Monocytes % 0.9 %; Neutrophils # 3.22 10^3/uL (1.8-7.7); Neutrophils % 94.7 %; Nucleated Red Blood Cells % 0 %; Platelet Count 210 10^3/cmm (130-400); Red Blood Count 3.26 10^6/uL (4.1-5.3); Red Cell Distribution Width 16.8 % (12.1-15.1); White Blood Count 3.4 10^3/uL (4.0-10.0)
[2020-05-18 05:17] LABS: Alanine Aminotransferase < 5 U/L (0-41); Albumin Level 3.2 g/dL (3.5-5.2); Alkaline Phosphatase 86 IU/L (40-130); Aspartate Amino Transferase 11 U/L (0-40); Blood Urea Nitrogen 47 mg/dL (8-23); Calcium 7.5 mg/dL (8.5-10.5); Carbon Dioxide 15 mmol/L (22-29); Chloride 108 mmol/L (98-107); Globulin 2.2 g/dL (1.3-4.6); Glucose 162 mg/dL (65-115); Osmolality Calculated 286 mOsm/kg (285-295); Sodium 137 mmol/L (136-145); Total Bilirubin 0.3 mg/dL (0.15-1.2); Total Protein 5.4 g/dL (6.6-8.7)
[2020-05-18] MEDS: hyDRALAzine 25 mg Tablet PO ×3 (08:09→20:30)
[2020-05-18] MEDS: pantoprazole DR 40 mg Tablet PO ×2 (08:09→17:12)
[2020-05-18] MEDS: amlodipine 10 mg Tablet PO (08:09)
--- NOTE | 2020-05-18 08:09 | CTR_ITS ---
PROCEDURE INFORMATION: Exam: CT Chest Without Contrast Exam date and time: 05/18/2020 8:23 AM Age: 80 years old Clinical indication: Shortness of breath; Patient HX: SOB with hypoxia. Anemia TECHNIQUE: Imaging protocol: Computed tomography of the chest without contrast. Radiation optimization: All CT scans at this facility use at least one of these dose optimization techniques: automated exposure control; mA and/or kV adjustment per patient size (includes targeted exams where dose is matched to clinical indication); or iterative reconstruction. COMPARISON: CR XR chest 1V portable [id number] 05/16/2020 6:28 PM RADIATION DOSE METRICS: Total DLP (mGy-cm): 400.83 FINDINGS: Lungs: There is bilateral lower lobe compressive and dependent atelectasis. There is high attenuation material within the atelectatic lung which might indicate prior aspiration. Evidence of prior pulmonary granulomatous disease. Pleural space: There are bilateral small pleural effusions. No pneumothorax. Heart: The heart is not enlarged. No pericardial effusion. There is coronary artery disease. Aorta: The thoracic aorta is atherosclerotic. No aneurysm or displaced intimal calcifications. Lymph nodes: Calcified mediastinal and bilateral hilar lymph nodes from prior granulomatous disease. Liver: There are hepatic cysts. Spleen: Calcified granulomas present in a nonenlarged spleen. Intraperitoneal space: There is ascites in the upper abdomen. Bones/joints: There are multilevel bridging osteophytes in the spine. Soft tissues: No acute soft tissue abnormality. CT/CT chest con [id number] IMPRESSION: 1. Bilateral small pleural effusions. 2. Bilateral lower lobe atelectasis. Prior aspiration? 3. Coronary artery disease. Radiation Dose CTDIVOL = (mGy): DLP = 400.83 (mGy-cm)
[2020-05-18 08:14] LABS: Magnesium 1.8 mg/dL (1.7-2.3)
[2020-05-18 13:12] LABS: Coronavirus Lab Test PTC Negative
--- NOTE | 2020-05-18 15:56 | PM.PN ---
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, currently on hydroxychloroquine, currently in isolation as his second COVID test is pending Vitals/I&O/Wt Last Vital Signs Temp 97.9 F 05/18/20 12:00 Pulse 66 05/18/20 15:00 Resp 12 05/18/20 15:00 BP 106/64 05/18/20 15:00 Pulse Ox 100 05/18/20 15:00 05/18/20 05/18/20 05/18/20 06:59 14:59 22:59 Intake Total 1142 / 1142 Output Total 300 / 2195 200 / 200 Balance -300 / 307 942 / 942 Weight last 48 hrs Weight 63.73 kg Weight 64.909 kg Weight 64.864 kg Weight 63.503 kg Physical Exam Const: COMMON NORMALS: no acute distress and patient oriented x3 HENMT: COMMON NORMALS: normocephalic HEAD & SCALP: normocephalic Neck/C-Spine: COMMON NORMALS: no JVD Resp: COMMON NORMALS: normal respiratory effort, No retractions, No use of accessory muscles and clear to auscultation bilaterally AUSCULTATION: clear to auscultation bilaterally Cardio: COMMON NORMALS: no JVD, regular rate, regular rhythm, S1 normal heart sound present and S2 normal heart sound present RATE: regular rate RHYTHM: regular rhythm HEART SOUNDS: S1 normal heart sound present and S2 normal heart sound present GI: COMMON NORMALS: Normal to inspection, nondistended, normoactive bowel sounds present, Soft to palpation, non-tender, No hepatosplenomegaly present, no masses and no bruits PALPATION: Yes Soft to palpation and Yes No hepatosplenomegaly present Extremity: COMMON NORMALS: capillary refill normal, no clubbing, cyanosis or edema, no calf tenderness and no pedal edema Neuro: COMMON NORMALS: patient oriented x3 Psych: COMMON NORMALS: mental status grossly normal Data : 05/18/20 04:15 05/18/20 04:15 Micro: Microbiology 05/16/20 19:16 Blood Culture - Preliminary Blood NEGATIVE TO DATE A&P Assessment and plan (1) Anemia: Status: Acute Qualifiers: Anemia type: unspecified type Qualified Code(s): D64.9 - Anemia, unspecified (2) DVT (deep venous thrombosis): DVT found in right leg which patient reports he has had a DVT before. This leg is chronically swollen according to the patient so chronicity is difficult to know. Secondary to severe anemia, will not anticoagulate currently until anemia has been corrected and then will consider. Status: Acute (3) Chronic kidney disease, stage III (moderate): Status: Acute (4) Acute kidney injury: Status: Acute (5) Metabolic acidosis: Likely secondary to renal failure Status: Acute (6) Immunosuppression: Status: Acute (7) Idiopathic parathyroidism: Status: Acute (8) Polyarteritis nodosa: Status: Acute Additional A&P Information Severe anemia: HemoGlobin on admission 4.7. Stool for occult blood was negative. Patient has received 3 units of PRBC transfusion. Repeat hemoglobin 10.3 ESR grossly >120, haptoglobin was mildly elevated, iron panel not suggestive of iron deficiency anemia, ferritin 326, LDH mildly elevated. Results of electrophoresis awaited. Vitamin B12, folate levels within normal limits. We will check reticulocyte count, peripheral smear awaited. Cannot rule out hemolysis because of history of polyarteritis nodosa. For now we will give him 1 dose of stress dose of Solu-Medrol. Goal hemoglobin 8, currently not fluid overloaded, no shortness of breath, no crackles on exam, no Lasix required Because of severe anemia even after saturation 100% keep patient on 2 L nasal cannula. Patient relates he recently had an EGD and colonoscopy that was negative for any evidence of bleeding Note that he is on multiple medications that can be associated with anemia, specifically CellCept which can be associated with pure red cell aplasia Acute kidney injury: Continue transfusion for now. Creatinine today is 3.6. 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 Check renal ultrasound pending CT abdomen pelvis not concerning for any obstructive uropathy. Check urinalysis, urine lites, urine eosinophils, urine creatinine. HTN: Goal BP less than 140/90mmhg. Amlo 10 mg PO QD, hydralazine 25 mg PO TID.Unfortunately cannot give beta-clarke as patient heart rate has been running on the lower side. Echocardiogram has been ordered and results are awaited. Hypocalcemia, supplement. PTH level is high, magnesium within normal limits, phosphorus, 25-hydroxy vitamin D low at 14, start vitamin D Elevated BNP. Check echocardiogram. Polyarteritis nodosa. ~3 days ago was on CellCept and now getting some hydroxychloroquine. Holding these currently. Underlying chronic kidney disease stage III GERD continue Protonix History of chronic diarrhea apparently recently had colonoscopy Hyperlipidemia Skin cancer Full code Holding anticoagulation currently until hemoglobin deficiency has been replaced. Then will consider anticoagulation. 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
[2020-05-19] VITALS (17 sets, daily range): BP systolic 124–144; BP diastolic 70–87; PULSE 61–80; RESP 7–20; TEMP 36.5–36.9; O2SAT 94–100
[2020-05-19 04:26] LABS: Basophils % 0.1 %; Eosinophils % 0.4 %; Hematocrit 32.5 % (42.0-52.0); Hemoglobin 10.4 g/dL (11.7-16.6); Lymphocytes # 0.5 10^3/uL (0.8-4.8); Lymphocytes % 6.7 %; Monocytes # 0.4 10^3/uL (0.2-0.9); Monocytes % 4.6 %; Neutrophils # 6.71 10^3/uL (1.8-7.7); Neutrophils % 87.9 %; Nucleated Red Blood Cells % 0 %; Platelet Count 200 10^3/cmm (130-400); Red Blood Count 3.35 10^6/uL (4.1-5.3); Red Cell Distribution Width 16.2 % (12.1-15.1); White Blood Count 7.6 10^3/uL (4.0-10.0)
[2020-05-19 04:47] LABS: Magnesium 1.6 mg/dL (1.7-2.3); Phosphorus 4.6 mg/dL (2.5-4.5)
[2020-05-19 04:54] LABS: Alanine Aminotransferase < 5 U/L (0-41); Albumin Level 3.2 g/dL (3.5-5.2); Alkaline Phosphatase 73 IU/L (40-130); Anion Gap 17.9 (5-19); Aspartate Amino Transferase 8 U/L (0-40); Blood Urea Nitrogen 53 mg/dL (8-23); Calcium 7.3 mg/dL (8.5-10.5); Carbon Dioxide 15 mmol/L (22-29); Chloride 109 mmol/L (98-107); Glucose 105 mg/dL (65-115); Osmolality Calculated 285 mOsm/kg (285-295); Potassium 3.9 mmol/L (3.5-5.1); Sodium 138 mmol/L (136-145); Total Bilirubin 0.2 mg/dL (0.15-1.2); Total Protein 5.2 g/dL (6.6-8.7)
--- NOTE | 2020-05-19 05:00 | USCV_ITS ---
Good Alegre Age: 80 Gender: M : 1940 Exam Date: 05/19/2020 06:27 Ordering Phys: Dinh Garza MD Technologist: Kim Lacey [place] [facility] [place]: htn Aortic Velocity @ SMA (cm/s) 63.8 RIGHT KIDNEY LEFT KIDNEY Velocity (cm/s) Velocity (cm/s) Sys/Garza Sys/Garza Resistive Index Resistive Index 12.3 / 4.6 0.63 Proximal Renal Artery / 16.1 / 2.9 0.82 Mid Renal Artery / 19.9 / 6.6 0.67 Distal Renal Artery / 14.9 / 4.1 0.73 Hilar / 8.5 / 4.3 0.50 Upper Pole / 14.8 / 4.7 0.69 Mid Pole / 8.0 / 0.3 0.97 Lower Pole / 0.30 Renal Aortic Ratio Accleration Index (cm/sec2) 166.00 Hilar 200.00 Upper Pole 285.00 Mid Pole 200.00 Lower Pole 96.3 Kidney Length (mm) FINDINGS Technically difficult study to visualize renal arteries Diminished arterial Doppler flow velocities Normal aortic/renal ratio. Normal resistive indicis Normal acceleration index Normal kidney dimension CONCLUSIONS No significant renal artery obstruction, based on the above findings Markedly diminished velocities in the renal arteries may suggest proximal stenosis in the aorta Consider CTA, to better evaluate the renal arteries and aorta, if clinically indicated Dr Sally Elliott MD [facility] (Electronically Signed) Final Date: 19 May 2020 17:28 S
[2020-05-19 08:00] LABS: LAB Peripheral Smear Sent for Review
[2020-05-19] MEDS: cholecalciferol (vitamin D3) 1,000 unit Tablet 1000 UNIT PO (09:50)
[2020-05-19] MEDS: hyDRALAzine 25 mg Tablet PO ×3 (09:50→20:53)
[2020-05-19] MEDS: amlodipine 10 mg Tablet PO (09:50)
[2020-05-19] MEDS: pantoprazole DR 40 mg Tablet PO ×2 (09:50→17:34)
[2020-05-19] MEDS: apixaban 5 mg Tablet 10 MG PO ×2 (11:12→20:53)
--- NOTE | 2020-05-19 11:36 | PC.OT ---
OT screen completed. Pt observed getting out of bed and ambulating in hallway with PT. After this pt demonstrated LB dressing by doffing and donning sock. 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 He reported he feels he can do his self cares as at baseline at this time. No further OT recommended at this time.
[2020-05-19] MEDS: ondansetron 2 mg/ML SDV 2 mL 4 MG IVP (12:44)
--- NOTE | 2020-05-19 13:14 | PC.NURSE ---
when pt was moved to [facility] his coccyx was noted to have a sheer tear on the skin. this was reported off to JOSHUA Flores
[2020-05-19 14:27] LABS: Anti-Double Strand DNA AB 48 IU/mL; Jo-1 Antibody <1.0 NEG AI (<1.0 NEG); SM/RNP Antibodies <1.0 NEG AI (<1.0 NEG); SS-B/LA IGG <1.0 NEG AI (<1.0 NEG); Scleroderma Ab(Scl-70) Ab <1.0 NEG AI (<1.0 NEG); Ss-A/Ro Igg <1.0 NEG AI (<1.0 NEG)
[2020-05-19 15:53] LABS: KAPPA LIGHT CHAIN, FREE, SERUM 95.7 mg/L (3.3-19.4); KAPPA/LAMBDA LIGHT CHAINS FREE 1.08 (0.26-1.65); LAMBDA LIGHT CHAIN, FREE, SERU 88.8 mg/L (5.7-26.3)
--- NOTE | 2020-05-19 17:42 | PM.PN ---
Subjective Subjective: Interval history: This morning patient was examined in the intensive care unit, he states that he is doing well, no bloody or black stools, no nausea, vomiting, lightheadedness, no dizziness, no fevers, no chills, overall is doing well, still has generalized weakness Vitals/I&O/Wt Last Vital Signs Temp 98.1 F 05/19/20 16:00 Pulse 74 05/19/20 16:00 Resp 18 05/19/20 16:00 BP 143/70 05/19/20 16:00 Pulse Ox 94 05/19/20 16:00 05/19/20 05/19/20 05/19/20 06:59 14:59 22:59 Intake Total 350 / 1932 220 / 220 Output Total 900 / 1225 225 / 225 175 / 400 Balance -550 / 707 -5 / -5 -175 / -180 Weight last 48 hrs Weight 65.136 kg Weight 63.73 kg Physical Exam Const: COMMON NORMALS: no acute distress and patient oriented x3 HENMT: COMMON NORMALS: normocephalic HEAD & SCALP: normocephalic Neck/C-Spine: COMMON NORMALS: no JVD Resp: COMMON NORMALS: normal respiratory effort, No retractions, No use of accessory muscles and clear to auscultation bilaterally AUSCULTATION: clear to auscultation bilaterally Cardio: COMMON NORMALS: no JVD, regular rate, regular rhythm, S1 normal heart sound present and S2 normal heart sound present RATE: regular rate RHYTHM: regular rhythm HEART SOUNDS: S1 normal heart sound present and S2 normal heart sound present GI: COMMON NORMALS: Normal to inspection, nondistended, normoactive bowel sounds present, Soft to palpation, non-tender, No hepatosplenomegaly present, no masses and no bruits PALPATION: Yes Soft to palpation and Yes No hepatosplenomegaly present Extremity: COMMON NORMALS: capillary refill normal, no clubbing, cyanosis or edema, no calf tenderness and no pedal edema Neuro: COMMON NORMALS: patient oriented x3 Psych: COMMON NORMALS: mental status grossly normal Data : 05/19/20 04:00 05/19/20 04:00 A&P Assessment and plan (1) Anemia: Status: Acute Qualifiers: Anemia type: unspecified type Qualified Code(s): D64.9 - Anemia, unspecified (2) DVT (deep venous thrombosis): -Positive for venous thrombus in the right peroneal vein -Anticoagulation was on hold given severe anemia of hemoglobin 4.7 -Hemoglobin has stabilized to 10.4 -We will reinstitute Eliquis, monitor hemoglobin closely Status: Acute (3) Chronic kidney disease, stage III (moderate): Status: Acute (4) Acute kidney injury: Status: Acute (5) Metabolic acidosis: Likely secondary to renal failure Status: Acute (6) Immunosuppression: Status: Acute (7) Idiopathic parathyroidism: Status: Acute (8) Polyarteritis nodosa: Status: Acute Additional A&P Information Severe anemia likely secondary to CellCept: HemoGlobin on admission 4.7. Stool for occult blood was negative. Patient has received 3 units of PRBC transfusion. Repeat hemoglobin 10.4 haptoglobin within normal limits, LDH within normal limits, reticulocyte count 0.7 Pathology smear shows macrocytic anemia, a few schistocytes, few acanthocytes, no blasts ESR grossly >120, haptoglobin was mildly elevated, iron panel not suggestive of iron deficiency anemia, ferritin 326, LDH mildly elevated. Results of electrophoresis awaited. Vitamin B12, folate levels within normal limits. Was given 1 dose of steroids for hemolysis related to polyarteritis nodosa Goal hemoglobin 8, currently not fluid overloaded, no shortness of breath, no crackles on exam, no Lasix required Because of severe anemia even after saturation 100% keep patient on 2 L nasal cannula. Patient relates he recently had an EGD and colonoscopy I reviewed the studies, had a few polyps found, had severe esophagitis, no significant ulcers, repeat EGD planned for a month I spoke to hematology oncology, agreed that anemia is likely secondary to CellCept, Have patient follow-up with nephrology and hematology as outpatient Acute kidney injury: Continue transfusion for now. Creatinine today is 3.0 I have reached out to patient's work from home, and waiting a call back Renal ultrasound shows no significant renal artery obstruction CT abdomen pelvis not concerning for any obstructive uropathy. HTN: Goal BP less than 140/90mmhg. Amlo 10 mg PO QD, hydralazine 25 mg PO TID.Unfortunately cannot give beta-clarke as patient heart rate has been running on the lower side. Echocardiogram shows an EF of 62% Hypocalcemia, supplement. PTH level is high, magnesium within normal limits, phosphorus, 25-hydroxy vitamin D low at 14, start vitamin D Likely vitamin vitamin D deficiency Polyarteritis nodosa. ~3 days ago was on CellCept and now getting some hydroxychloroquine. Holding these currently. Underlying chronic kidney disease stage III GERD continue Protonix History of chronic diarrhea apparently recently had colonoscopy Hyperlipidemia Skin cancer Full code Currently on Eliquis, monitor hemoglobin, likely discharge the next 0.4 hours Discharged home with physical therapy Attestations Medical Necessity Statement*: Requires hospitalization, for severe anemia, acute kidney injury, likely secondary to CellCept Coding Level of Care Code Acute Hospice Community Liaison for [facility] Diagnoses Anemia D64.9 Anemia type: unspecified type DVT (deep venous thrombosis) I82.409 Chronic kidney disease, stage III (moderate) N18.3 Acute kidney injury N17.9 Metabolic acidosis E87.2 Immunosuppression D89.9 Idiopathic parathyroidism E20.9 Polyarteritis nodosa M30.0
[2020-05-19] MEDS: atorvastatin 40 mg Tablet PO (20:53)
[2020-05-20] VITALS: BP 135/77; PULSE 70; RESP 18; TEMP 36.5; O2SAT 96
[2020-05-20 03:22] LABS: PROTEIN, TOTAL 4.9 g/dL (6.1-8.1)
[2020-05-20 04:00] VITALS: BP 131/71; PULSE 64; RESP 18; TEMP 37; O2SAT 96
[2020-05-20 05:59] LABS: Basophils % 0.1 %; Eosinophils % 0.6 %; Hemoglobin 9.4 g/dL (11.7-16.6); Lymphocytes # 0.4 10^3/uL (0.8-4.8); Mean Corpuscular HGB Conc 31.3 g/dL (30.0-36.0); Mean Corpuscular Hemoglobin 31.2 pg (28.0-34.0); Mean Corpuscular Volume 99.7 fL (80-94); Mean Platelet Volume 9.7 fL (7.4-10.4); Monocytes # 0.2 10^3/uL (0.2-0.9); Monocytes % 3.4 %; Neutrophils # 6.37 10^3/uL (1.8-7.7); Neutrophils % 89.1 %; Nucleated Red Blood Cells % 0 %; Platelet Count 163 10^3/cmm (130-400); Red Blood Count 3.01 10^6/uL (4.1-5.3); Red Cell Distribution Width 16.3 % (12.1-15.1); White Blood Count 7.2 10^3/uL (4.0-10.0)
[2020-05-20 06:28] LABS: Alanine Aminotransferase < 5 U/L (0-41); Albumin Level 2.9 g/dL (3.5-5.2); Alkaline Phosphatase 72 IU/L (40-130); Anion Gap 14.7 (5-19); Aspartate Amino Transferase 10 U/L (0-40); Blood Urea Nitrogen 52 mg/dL (8-23); Calcium 7.3 mg/dL (8.5-10.5); Carbon Dioxide 16 mmol/L (22-29); Chloride 110 mmol/L (98-107); Globulin 1.9 g/dL (1.3-4.6); Glucose 94 mg/dL (65-115); Magnesium 1.5 mg/dL (1.7-2.3); Osmolality Calculated 282 mOsm/kg (285-295); Phosphorus 3.8 mg/dL (2.5-4.5); Potassium 3.7 mmol/L (3.5-5.1); Sodium 137 mmol/L (136-145); Total Bilirubin 0.2 mg/dL (0.15-1.2); Total Protein 4.8 g/dL (6.6-8.7)
[2020-05-20 08:00] VITALS: BP 111/69; PULSE 89; RESP 16; TEMP 37; O2SAT 96
[2020-05-20] MEDS: cholecalciferol (vitamin D3) 1,000 unit Tablet 1000 UNIT PO (08:33)
[2020-05-20] MEDS: pantoprazole DR 40 mg Tablet PO (08:33)
[2020-05-20] MEDS: hyDRALAzine 25 mg Tablet PO (08:34)
[2020-05-20] MEDS: amlodipine 10 mg Tablet PO (08:34)
[2020-05-20] MEDS: apixaban 5 mg Tablet 10 MG PO (08:35)
[2020-05-20 08:47] VITALS: PULSE 87; O2SAT 92
--- NOTE | 2020-05-20 09:18 | PC.SOCIAL ---
IMM Update Pg. 2 of IMM Updated and reviewed with patient. Copy provided at this time.
[2020-05-20 11:10] VITALS: BP 112/68; PULSE 96; RESP 16; TEMP 36.6; O2SAT 92
[2020-05-20 13:17] LABS: Hematocrit 34.9 % (42.0-52.0); Hemoglobin 10.9 g/dL (11.7-16.6)
[2020-05-20 15:52] LABS: ALBUMIN 2.9 g/dL (3.8-4.8); ALPHA 1 GLOBULIN 0.4 g/dL (0.2-0.3); ALPHA 2 GLOBULIN 0.7 g/dL (0.5-0.9); BETA 1 GLOBULIN 0.3 g/dL (0.4-0.6); BETA 2 GLOBULIN 0.2 g/dL (0.2-0.5); GAMMA GLOBULIN 0.5 g/dL (0.8-1.7)
[2020-05-20 16:53] VITALS: BP 112/68; PULSE 96; RESP 16; TEMP 36.6; O2SAT 92
--- NOTE | 2020-06-16 19:33 | PM.DCS ---
Discharge Providers Date of Admission: 05/17/20 00:01 Date of Discharge: June 16, 2020 Attending Provider at Admission: Trino Crocker MD Attending Provider at Discharge: Wilfred Linn MD Primary Care Provider: Maricarmen Meza MD Diagnoses at Discharge Discharge Diagnosis (1) Anemia: Status: Acute Qualifiers: Anemia type: unspecified type Qualified Code(s): D64.9 - Anemia, unspecified (2) DVT (deep venous thrombosis): Status: Acute (3) Chronic kidney disease, stage III (moderate): Status: Chronic (4) Acute kidney injury: Status: Acute (5) Metabolic acidosis: Status: Acute (6) Immunosuppression: Status: Acute (7) Idiopathic parathyroidism: Status: Acute (8) Polyarteritis nodosa: Status: Chronic Reason for Visit Reason for Visit: POSS STROKE SYMPTOMS Hospital Course Discharge Summary: This is a 80-year-old male with a past medical 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 Patient was admitted to [facility] ICU, for severe anemia, hemoglobin 4.7, secondary to CellCept, received 3 units PRBC, repeat hemoglobins remained stable throughout his admission, moved to the general medical floors, clinically did well discharged home. In terms of the etiology of patient's anemia, likely secondary to CellCept, haptoglobin within normal limits, LDH within normal limits, reticulocyte count 0.7, pathology smear showed macrocytic anemia a few schistocytes, few acanthocytes, no blast. ESR was elevated 120, iron panel was not suggestive of iron deficiency anemia, vitamin B12 and folate within normal limits. Review of patient's recent EGD and colonoscopy showed a few polyps that were found, severe esophagitis. I spoke to hematology oncology, likely had anemia secondary to CellCept. Patient is to repeat hemoglobin as outpatient, with close follow-up with hematology. Patient also had BOOGIE throughout his hospital admission, which improved with gentle IV hydration, has a history of CKD stage III, follows a facilities maintenance manager in [place], creatinine on discharge 3.6, patient is to follow-up with his facilities maintenance manager in the next few weeks. Patient's CellCept and hydroxychloroquine were held on discharge. Patient was also found to be hypocalcemic throughout his hospitalization, likely secondary to vitamin D deficiency. Patient was also found to have a DVT in the right peroneal vein, anticoagulation was held due to his severe anemia, but very unlikely secondary to GI bleed, his Eliquis was resumed during his hospitalization, he was kept as inpatient monitoring his hemoglobin, hemoglobin remained stable, no bloody or black stools, discharged with Eliquis with a close follow-up with his primary care provider as outpatient. Physical Exam Const: COMMON NORMALS: no acute distress and patient oriented x3 HENMT: COMMON NORMALS: normocephalic HEAD & SCALP: normocephalic Neck/C-Spine: COMMON NORMALS: no JVD Resp: COMMON NORMALS: normal respiratory effort, No retractions, No use of accessory muscles and clear to auscultation bilaterally AUSCULTATION: clear to auscultation bilaterally Cardio: COMMON NORMALS: no JVD, regular rate, regular rhythm, S1 normal heart sound present and S2 normal heart sound present RATE: regular rate RHYTHM: regular rhythm HEART SOUNDS: S1 normal heart sound present and S2 normal heart sound present GI: COMMON NORMALS: Normal to inspection, nondistended, normoactive bowel sounds present, Soft to palpation, non-tender, No hepatosplenomegaly present, no masses and no bruits PALPATION: Yes Soft to palpation and Yes No hepatosplenomegaly present Extremity: COMMON NORMALS: capillary refill normal, no clubbing, cyanosis or edema, no calf tenderness and no pedal edema Neuro: COMMON NORMALS: patient oriented x3 Psych: COMMON NORMALS: mental status grossly normal Discharge Data Data Completed and Pending: Completed Studies During Hospitalization Category Date Time Status CT abdomen pelvis wo con [id number] Urge nt Cat Scan 05/16/20 19:[address] chest wo con 7 1250 Routine Cat Scan 05/18/20 08:[address] head wo con* 7 0450 Urgent Cat Scan 05/16/20 18:32 Completed XR chest 1V vito ble [id number] Stat Exams 05/16/20 18:29 Completed CV echo complete* [id number] Routine Ultrasound 05/18/20 Completed CV renal doppler [id number] Routine Ultrasound 05/19/20 05:00 [place] [id number] Urgent Ultrasound 05/16/20 18:50 Completed US renal BI with bladder Routine Ultrasound 05/18/20 Completed Vitals: Last Vital Signs Temp 97.8 F 05/20/20 16:53 Pulse 96 05/20/20 16:53 Resp 16 05/20/20 16:53 BP 112/68 05/20/20 16:53 Pulse Ox 92 05/20/20 16:53 Discharge Plan Discharge Patient Disposition: Home Condition: Stable Prescriptions: New hydralazine 25 mg Tablet 25 mg PO TID 30 Days Qty: 90 RF: 0 amlodipine 10 mg Tablet 10 mg PO DAILY 30 Days Qty: 30 RF: 0 pantoprazole 40 mg Tablet,Delayed Release (Dr/Ec) 40 mg PO BID 30 Days Qty: 60 RF: 0 cholecalciferol (vitamin D3) 25 mcg (1,000 unit) Tablet 1,000 unit PO DAILY 30 Days Qty: 30 RF: 0 Continued nifedipine [Procardia XL] 30 mg tablet extended release 24hr 30 mg PO BID RF: 0 sucralfate [Carafate] 1 gram tablet 1 gm PO BID Qty: 60 RF: 3 ondansetron HCl [Zofran] 4 mg tablet 4 mg PO BID PRN (Reason: nausea and vomiting) Qty: 30 RF: 0 acitretin 25 mg capsule 25 mg PO DAILY RF: 0 Changed potassium chloride 10 mEq tablet extended release 10 meq PO DAILY Qty: 0 RF: 0 pravastatin 20 mg tablet 20 mg PO DAILY Qty: 0 RF: 0 Held furosemide 20 mg tablet 10 mg PO QAM RF: 0 Hold Instructions: Resume on 06/17/20. Hold until seen by facilities maintenance manager mycophenolate mofetil [CellCept] 500 mg tablet 1,000 mg PO BID RF: 0 Hold Instructions: Resume on 06/17/20. Hold until seen by facilities maintenance manager Discontinued pantoprazole [Protonix] 40 mg tablet,delayed release (DR/EC) 40 mg PO ONCE RF: 0 fluconazole 100 mg tablet RF: 0 No Action Vitamin B-12 1,000 mcg Tablet 1,000 mcg PO DAILY RF: 0 aspirin 81 mg Tablet,Chewable 81 mg PO DAILY RF: 0 mirtazapine 30 mg tablet 30 mg PO BEDTIME RF: 0 Eliquis DVT-PE Treat 30D Start 5 mg (74 tabs) tablets,dose pack 5 mg PO BID RF: 0 Discharge Orders: Discharge Order (Routine); Ordered 05/20/20 Ordered By: Wilfred Linn Other Ambulatory Orders: Complete Blood Count w/Auto (EVERY OTHER DAY) Timeframe: 20200521 Location: Determined by Patient Ordered By: Wilfred Linn Complete Blood Count w/Auto (EVERY OTHER DAY) Timeframe: 20200523 Location: Determined by Patient Ordered By: Wilfred Linn Complete Blood Count w/Auto (EVERY OTHER DAY) Timeframe: 20200525 Location: Determined by Patient Ordered By: Wilfred Linn Complete Blood Count w/Auto (EVERY OTHER DAY) Timeframe: 20200527 Location: Determined by Patient Ordered By: Wilfred Linn Referrals: Celestino Medrano MD [Referring] - 4-7 days (Please contact Dr. Medrano office tomorrow to make an appointment to be seen within 4-7 days. ) ROSELYN BROWN MD [Referring] - 4-7 days (Please keep your appointment to see Dr. Brown on 05/29/20 at 1130 am.) Discharge Diet: Regular and Cardiac Discharge Activity: Resume usual activity Patient Instructions: Hydralazine (By mouth), Amlodipine (By mouth), Pantoprazole (By mouth), Apixaban (By mouth), Cholecalciferol (By mouth), Heart Healthy Diet, Deep Venous Thrombosis (DC), Anemia (DC) Activity Restrictions/Additional Instructions: -Please follow-up with nephrology in 4 to 7 days -If you have bloody or black stools please come to the emergency room -Please check hemoglobin every 2 days for the next week -If you feel suddenly lightheaded, dizzy, weak come back to the emergency room -For your right lower extremity DVT, I have discharged you on Eliquis, this is a blood thinner, will risks of worsening anemia, we will have to monitor your hemoglobin closely -Follow-up with presales engineer in [place] Discharge Date/Time: 05/20/20 15:40 Discharge Attestations Time Spent in Discharge Care*: less than 30 min Quality Metrics Clinical Quality Measures During this hospital stay, did patient experience: VTE Contraindication to Overlap Therapy: Overlap treatment not indicated VTE Discharge Education: Education about anticoagulant therapy/Care Notes given Coding Level of Care Code Acute Table Cut Off 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
== END 2020-05-20 15:40 | disposition home or self-care (01) | DRG 812 ==
LOC: ER 18:29 → ICU 05-17 00:44 → MEDSURG 05-19 10:50
PROVIDERS: Emergency Medicine; Physician Assistant; Student in an Organized Health Care Education/Training Program; Admitting Provider Internal Medicine; PCP Family Medicine; Visit Provider Family Medicine
DX: D53.9 Nutritional anemia, unspecified (principal); M30.0 Polyarteritis nodosa; N17.9 Acute kidney failure, unspecified; E87.2 Acidosis; I82.451 Acute embolism and thrombosis of right peroneal vein; I12.9 Hypertensive chronic kidney disease with stage 1 through stage 4 chronic kidney disease, or unspecified chronic kidney disease; N18.3 Chronic kidney disease, stage 3 (moderate); E78.5 Hyperlipidemia, unspecified; K21.9 Gastro-esophageal reflux disease without esophagitis; Z86.718 Personal history of other venous thrombosis and embolism; Z85.828 Personal history of other malignant neoplasm of skin; E83.51 Hypocalcemia; K52.9 Noninfective gastroenteritis and colitis, unspecified; D89.9 Disorder involving the immune mechanism, unspecified; E20.0 Idiopathic hypoparathyroidism; Z80.7 Family history of other malignant neoplasms of lymphoid, hematopoietic and related tissues; T45.1X5A Adverse effect of antineoplastic and immunosuppressive drugs, initial encounter
CPT/HCPCS: 12345; 36415; 36430; 36600; 70450; 71045; 71250; 74176; 76770; 76857; 80053; 80500; 81001; 82272; 82306; 82310; 82436; 82550; 82570; 82607; 82728; 82746; 82803; 83010; 83540; 83550; 83605; 83615; 83735; 83880; 83883; 83970; 84100; 84133; 84155; 84165; 84300; 84443; 84484; 85007; 85014; 85018; 85025; 85045; 85610; 85651; 86140; 86160; 86225; 86235; 86705; 86706; 86709; 86803; 86850; 86880; 86900; 86920; 87040; 87340; 87426; 87635; 87806; 93005; 93306; 93970; 93975; 96375; 97161; 97530; 99283; J0610; J1200; J1940; J2405; J2930; J3475; P9016

== ENCOUNTER 2020-06-15 08:14 | Inpatient (IN) | payer MEDICARE, SELFPAY ==
[2020-06-15] VITALS (53 sets, daily range): BP systolic 125–173; BP diastolic 70–100; PULSE 62–102; RESP 4–20; TEMP 36.9–37.6; O2SAT 90–97; BMI 21.7; BMI 22.1
--- NOTE | 2020-06-15 08:19 | XR_ITS ---
WS: [id number] Portable AP upright chest, 06/15/2020 Clinical Data: dyspnea/cough Comparison: Portable chest, 05/16/2020. Findings: Bilateral patchy opacities are present. There are small bilateral effusions. The heart is e nlarged. The aortic arch and descending aorta are tortuous. No nodules or masses are seen. There is n o pneumothorax. XR/XR chest 1V portable [id number] Impression: 1. Bilateral patchy interstitial opacities which may represent pulmonary vascul ar congestion along with cardiomegaly. 2. Atherosclerosis.
--- NOTE | 2020-06-15 08:19 | CT_ITS ---
WS: [id number] CT HEAD TECHNIQUE: Noncontrast CT of the head obtained from the skullbase to the vertex. CLINICAL INFORMATION: loss of balance COMPARISON: May 16, 2020 DLP: 832.[address] scans at [facility] use at least one of these dose optimization techniques: automat ed exposure control; mA and/or kV adjustment per patient size (includes targeted exams where dose is matched to clinical indication); or iterative reconstruction. FINDINGS: No evidence of intracranial hemorrhage or mass effect. Ventricular system and basal cisterns are boogie nt. Mild small vessel changes with moderate parenchymal volume loss. No extra-axial fluid collections . No evidence of mass or mass effect. Normal wilson-white differentiation. Opacification left mastoid air cells. Right mastoid air cells are well aerated. Paranasal sinuses are well aerated. CT/CT head wo con* [id number] IMPRESSION: 1. No evidence of intracranial hemorrhage or mass effect. 2. Mild small vessel changes. Moderate parenchymal volume loss. 3. Opacification left mastoid air cells. 4. No acute intracranial findings. Notified Ubaldo Werner DO at 06/15/2020 10:48 AM.
--- NOTE | 2020-06-15 08:21 | ECG_ITS ---
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 Measurements Intervals [place] Rate: 88 P: -14 NM: 116 QRS: 35 QRSD: 85 T: 64 QT: 384 QTc: 466 Interpretive Statements SINUS RHYTHM WITH SHORT NM INTERVAL WITH OCCASIONAL SUPRAVENTRICULAR PREMATURE COMPLEXES Compared to ECG 05/17/2020 03:32:46 Short NM interval now present Ventricular premature complex(es) no longer present T-wave abnormality no longer present Electronically Signed On 06-15-2020 17:30:21 CDT by Ever Chavez M.D. [id number]
[2020-06-15 08:44] LABS: ABG PCO2 28.6 mmHg (35-45); Alveolar-Arterial Oxygen Gradi 6.1 mmHg (5-10); Arterial Blood Gas Hematocrit 24.6 % (42-52); Base Excess ABG -6.6 mmol/L (-2.0-2.0); Blood Gas Allen Test Pos; Blood Gas Operator Identificat CAK; Blood Gas Sample Site Radial, left; Blood Gas Sample Type Arterial; HCO3 ABG 17.5 mmol/L (22-26); HGB O2 Sat 91.7 % (95-100); Ionized Calcium Level - ABG 1.1 mmol/L (1.1-1.4); Methemoglobin 1.9 % (0.4-1.5); Oxygen Device ROOM AIR; Oxygen Saturation ABG 94.4; PO2 ABG 68.1 mmHg (80.0-100.0); Potassium Level - ABG 3.2 mmol/L (3.5-5.0)
--- NOTE | 2020-06-15 08:50 | ED_ITS ---
HPI - Weakness General: Chief complaint: Weakness Stated complaint: DISORIENTED, FALLING Time Seen by Provider: 06/15/20 08:17 History of Present Illness: HPI Narrative: 80-year-old male presents emergency room complaint of generalized weakness. He has had a little shortness of breath he is also had some diarrhea. He has had several falls at home had a fall this morning they thought he was down about 15 minutes. Fall was unwitnessed he denies striking his head denies any loss of consciousness. He is not have any chest pain does admit to some shortness of breath and cough. He few weeks ago he was started on Eliquis after a DVT was found. MD Complaint: generalized weakness and difficulty walking Onset (ago): day(s) Duration: constant Relieving factors: none Exacerbating factors: none Associated symptoms: Reports confusion, decreased appetite, myalgias, nausea and short of breath; Denies chest pain, chills, melena, diaphoresis, dysuria, easy bruising, fever(s), headache(s), rash, syncope or vomiting Review of Systems Const: Denies: fever(s), chills or diaphoresis ENMT: Denies: throat pain, ear or mastoid pain, nasal discharge or nasal congestion Card: Denies: chest pain or syncope Resp: Denies: dyspnea, productive cough or non-productive cough GI: Reports: nausea; Denies: vomiting or melena : Denies: dysuria Skin/Breast: Denies: rash or pruritus Neuro: Reports: confusion; Denies: headache(s) Alberto/Lymph: Denies: easy bruising PFSH ED PFSH: Medical History Anemia Chronic kidney disease, stage III (moderate) CRI (chronic renal insufficiency) Diarrhea Dyslipidemia GERD (gastroesophageal reflux disease) Gout History of DVT (deep vein thrombosis) Hypertension Idiopathic parathyroidism Immunosuppression Inguinal hernia left 11/30/2016 Polyarteritis nodosa Skin cancer Vitamin D deficiency Surgical History H/O endoscopy History of hernia repair History of hip surgery Status post biopsy of kidney Family History Other Cancer Social History Smoking and tobacco status: never smoked Alcohol intake: never Marital status: Physical Exam Const: COMMON NORMALS: no acute distress GENERAL APPEARANCE: cooperative and comfortable ORIENTATION/CONSCIOUSNESS: Yes awake, Yes oriented to person, Yes oriented to place and Yes oriented to time HENMT: COMMON NORMALS: normocephalic, atraumatic and hearing grossly normal bilaterally HEAD & SCALP: normocephalic and atraumatic Eye: COMMON NORMALS: Equal, round and reactive pupils present, EOMs intact bilaterally, conjunctivae normal and no scleral icterus CONJUNCTIVA: Yes conjunctivae normal PUPIL: Yes Equal, round and reactive pupils present Neck/C-Spine: COMMON NORMALS: full ROM, no lymphadenopathy, supple and no JVD Lymph: LYMPHATIC: no lymphadenopathy noted and no lymphedema noted Resp: COMMON NORMALS: normal respiratory effort, No retractions, No use of acc essory muscles and clear to auscultation bilaterally AUSCULTATION: clear to auscultation bilaterally Cardio: COMMON NORMALS: no JVD, regular rate, regular rhythm and No murmurs present (Cardio) RATE: regular rate RHYTHM: regular rhythm GI: COMMON NORMALS: Soft to palpation and No hepatosplenomegaly present AUSCULTATION: Yes normoactive bowel sounds PALPATION: Yes Soft to palpation, No Tenderness to palpation present (GI), No Guarding due to palpation present (GI) and Yes No hepatosplenomegaly present Extremity: COMMON NORMALS: normal to inspection, capillary refill normal, no clubbing, cyanosis or edema, no calf tenderness and no pedal edema Neuro: SENSORIUM/ORIENTATION: Yes oriented to person, Yes oriented to place and Yes oriented to time Skin: COMMON NORMALS: no rashes or lesions noted GENERAL SKIN EXAM: no rashes or lesions noted Course Vital Signs: Vital signs: Vital Signs Temperature 98.5 F 06/15/20 19:30 Pulse Rate 63 06/16/20 06:00 Respiratory Rate 6 L 06/16/20 06:00 Blood Pressure 178/103 06/16/20 06:00 Pulse Oximetry 98 06/16/20 06:00 MDM - Weakness MDM Narrative: Medical decision making narrative: Patient's chest x-ray was very concerning for Kovic along with his symptoms rapid antigen is positive. He is already on Eliquis did not get a CT because of his current renal function. We will go ahead and admit to the [facility] you have discussed Dr. Diane Tejada she will see patient in ER transfer orders have been written Lab Data: Labs: Lab Results 06/15/20 06/15/20 06/15/20 Range/Units 08:33 08:50 08:50 WBC 7.5 (4.0-10.0) 10^3/ uL RBC 2.41 L (4.1-5.3) 10^6/u L Hgb 7.7 L (11.7-16.6) g/dL Hct 24.9 L (42.0-52.0) % MCV 103.3 H (80-94) fL MCH 32.0 (28.0-34.0) pg MCHC 30.9 (30.0-36.0) g/dL RDW 17.4 H (12.1-15.1) % Plt Count 205 (130-400) 10^3/c mm MPV 10.5 H (7.4-10.4) fL Neut % (Auto) 86.1 % Lymph % (Auto) 5.8 % Edwards % (Auto) 6.0 % Eos % (Auto) 0.4 % Baso % (Auto) 0.5 % Neut # (Auto) 6.43 (1.8-7.7) 10^3/u L Lymph # (Auto) 0.4 L (0.8-4.8) 10^3/u L Edwards # (Auto) 0.5 (0.2-0.9) 10^3/u L Eos # (Auto) 0.0 (0.0-0.8) 10^3/u L Baso # (Auto) 0.0 (0.0-0.1) 10^3/u L Nucleated RBC % (a uto) 0 % Nucleated RBCs # 0.0 /100WBC Fibrinogen (174-498) mg/dL D-Dimer (0-0.59) ug/mIFE U Specimen Type Arterial Sample Site Radial, left ABG pH 7.40 (7.35-7.45) ABG pCO2 28.6 L (35-45) mmHg ABG pO2 68.1 L (80.0-100.0) mmH g ABG HCO3 17.5 L (22-26) mmol/L ABG O2 Saturation 94.4 ABG Base Excess -6.6 L (-2.0-2.0) mmol/ L Drake Test Pos A-a O2 Gradient 6.1 (5-10) mmHg Hematocrit 24.6 L (42-52) % Hgb O2 Saturation 91.7 L (95-100) % Carboxyhemoglobin 1.0 (0.4-20.1) %THgb Methemoglobin 1.9 H (0.4-1.5) % Total Hemoglobin 8.0 L (14-18) g/dL Sodium 137.0 137 (131-143) mmol/L Potassium 3.2 L 3.3 L (3.5-5.0) mmol/L Glucose 124.0 H 120 H (70-115) mg/dL Ionized Calcium 1.1 (1.1-1.4) mmol/L O2 Delivery Device Room air Surveillance Systems Engineer ID Cak Chloride 106 (98-107) mmol/L Carbon Dioxide 17 L (22-29) mmol/L Anion Gap 17.3 (5-19) BUN 39 H (8-23) mg/dL Creatinine 3.0 H (0.7-1.2) mg/dL GFR Calculation Not Reportable Calculated Osmolal ity 295 (285-295) mOsm/k g Lactic Acid (0.5-2.2) mmol/L Calcium 7.9 L (8.5-10.5) mg/dL Magnesium (1.7-2.3) mg/dL Ferritin (30-400) ng/mL Total Bilirubin 0.3 (0.15-1.2) mg/dL AST 24 (0-40) U/L ALT 24 (0-41) U/L Alkaline Phosphata se 86 (40-130) IU/L Lactate Dehydrogen ase 303 H (135-225) U/L Creatine Kinase (39-308) U/L Troponin T Baselin e (0-15) ng/L Troponin T 120 Min [place] (0-15) ng/L Delta Troponin T (0-10) ABS# C-Reactive Protein 36.6 H (0.0-4.9) mg/L NT-Pro-B Natriuret Pep (0-450) pg/mL Total Protein 5.4 L (6.6-8.7) g/dL Albumin 3.4 L (3.5-5.2) g/dL Globulin 2.0 (1.3-4.6) g/dL Lipase 28 (13-60) U/L Procalcitonin (0-0.5) ng/mL SARS-CoV-2 Ag (Rap id) (Negative) 06/15/20 06/15/20 06/15/20 Range/Units 08:50 08:50 08:50 WBC (4.0-10.0) 10^3/ uL RBC (4.1-5.3) 10^6/u L Hgb (11.7-16.6) g/dL Hct (42.0-52.0) % MCV (80-94) fL MCH (28.0-34.0) pg MCHC (30.0-36.0) g/dL RDW (12.1-15.1) % Plt Count (130-400) 10^3/c mm MPV (7.4-10.4) fL Neut % (Auto) % Lymph % (Auto) % Edwards % (Auto) % Eos % (Auto) % Baso % (Auto) % Neut # (Auto) (1.8-7.7) 10^3/u L Lymph # (Auto) (0.8-4.8) 10^3/u L Edwards # (Auto) (0.2-0.9) 10^3/u L Eos # (Auto) (0.0-0.8) 10^3/u L Baso # (Auto) (0.0-0.1) 10^3/u L Nucleated RBC % (a uto) % Nucleated RBCs # /100WBC Fibrinogen 429 (174-498) mg/dL D-Dimer 4.41 H (0-0.59) ug/mIFE U Specimen Type Sample Site ABG pH (7.35-7.45) ABG pCO2 (35-45) mmHg ABG pO2 (80.0-100.0) mmH g ABG HCO3 (22-26) mmol/L ABG O2 Saturation ABG Base Excess (-2.0-2.0) mmol/ L Drake Test A-a O2 Gradient (5-10) mmHg Hematocrit (42-52) % Hgb O2 Saturation (95-100) % Carboxyhemoglobin (0.4-20.1) %THgb Methemoglobin (0.4-1.5) % Total Hemoglobin (14-18) g/dL Sodium (131-143) mmol/L Potassium (3.5-5.0) mmol/L Glucose (70-115) mg/dL Ionized Calcium (1.1-1.4) mmol/L O2 Delivery Device Surveillance Systems Engineer ID Chloride (98-107) mmol/L Carbon Dioxide (22-29) mmol/L Anion Gap (5-19) BUN (8-23) mg/dL Creatinine (0.7-1.2) mg/dL GFR Calculation Calculated Osmolal ity (285-295) mOsm/k g Lactic Acid 1.1 (0.5-2.2) mmol/L Calcium (8.5-10.5) mg/dL Magnesium (1.7-2.3) mg/dL Ferritin (30-400) ng/mL Total Bilirubin (0.15-1.2) mg/dL AST (0-40) U/L ALT (0-41) U/L Alkaline Phosphata se (40-130) IU/L Lactate Dehydrogen ase (135-225) U/L Creatine Kinase (39-308) U/L Troponin T Baselin e 262 H* (0-15) ng/L Troponin T 120 Min [place] (0-15) ng/L Delta Troponin T (0-10) ABS# C-Reactive Protein (0.0-4.9) mg/L NT-Pro-B Natriuret Pep (0-450) pg/mL Total Protein (6.6-8.7) g/dL Albumin (3.5-5.2) g/dL Globulin (1.3-4.6) g/dL Lipase (13-60) U/L Procalcitonin (0-0.5) ng/mL SARS-CoV-2 Ag (Rap id) (Negative) 06/15/20 06/15/20 06/15/20 Range/Units 08:50 08:55 10:46 WBC (4.0-10.0) 10^3/ uL RBC (4.1-5.3) 10^6/u L Hgb (11.7-16.6) g/dL Hct (42.0-52.0) % MCV (80-94) fL MCH (28.0-34.0) pg MCHC (30.0-36.0) g/dL RDW (12.1-15.1) % Plt Count (130-400) 10^3/c mm MPV (7.4-10.4) fL Neut % (Auto) % Lymph % (Auto) % Edwards % (Auto) % Eos % (Auto) % Baso % (Auto) % Neut # (Auto) (1.8-7.7) 10^3/u L Lymph # (Auto) (0.8-4.8) 10^3/u L Edwards # (Auto) (0.2-0.9) 10^3/u L Eos # (Auto) (0.0-0.8) 10^3/u L Baso # (Auto) (0.0-0.1) 10^3/u L Nucleated RBC % (a uto) % Nucleated RBCs # /100WBC Fibrinogen (174-498) mg/dL D-Dimer (0-0.59) ug/mIFE U Specimen Type Sample Site ABG pH (7.35-7.45) ABG pCO2 (35-45) mmHg ABG pO2 (80.0-100.0) mmH g ABG HCO3 (22-26) mmol/L ABG O2 Saturation ABG Base Excess (-2.0-2.0) mmol/ L Drake Test A-a O2 Gradient (5-10) mmHg Hematocrit (42-52) % Hgb O2 Saturation (95-100) % Carboxyhemoglobin (0.4-20.1) %THgb Methemoglobin (0.4-1.5) % Total Hemoglobin (14-18) g/dL Sodium (131-143) mmol/L Potassium (3.5-5.0) mmol/L Glucose (70-115) mg/dL Ionized Calcium (1.1-1.4) mmol/L O2 Delivery Device Surveillance Systems Engineer ID Chloride (98-107) mmol/L Carbon Dioxide (22-29) mmol/L Anion Gap (5-19) BUN (8-23) mg/dL Creatinine (0.7-1.2) mg/dL GFR Calculation Calculated Osmolal ity (285-295) mOsm/k g Lactic Acid (0.5-2.2) mmol/L Calcium (8.5-10.5) mg/dL Magnesium (1.7-2.3) mg/dL Ferritin (30-400) ng/mL Total Bilirubin (0.15-1.2) mg/dL AST (0-40) U/L ALT (0-41) U/L Alkaline Phosphata se (40-130) IU/L Lactate Dehydrogen ase (135-225) U/L Creatine Kinase (39-308) U/L Troponin T Baselin e (0-15) ng/L Troponin T 120 Min [place] 230.1 H (0-15) ng/L Delta Troponin T -31.9 L (0-10) ABS# C-Reactive Protein (0.0-4.9) mg/L NT-Pro-B Natriuret Pep 95510 H (0-450) pg/mL Total Protein (6.6-8.7) g/dL Albumin (3.5-5.2) g/dL Globulin (1.3-4.6) g/dL Lipase (13-60) U/L Procalcitonin (0-0.5) ng/mL SARS-CoV-2 Ag (Rap id) Positive H (Negative) 06/15/20 Range/Units 10:46 WBC (4.0-10.0) 10^3/ uL RBC (4.1-5.3) 10^6/u L Hgb (11.7-16.6) g/dL Hct (42.0-52.0) % MCV (80-94) fL MCH (28.0-34.0) pg MCHC (30.0-36.0) g/dL RDW (12.1-15.1) % Plt Count (130-400) 10^3/c mm MPV (7.4-10.4) fL Neut % (Auto) % Lymph % (Auto) % Edwards % (Auto) % Eos % (Auto) % Baso % (Auto) % Neut # (Auto) (1.8-7.7) 10^3/u L Lymph # (Auto) (0.8-4.8) 10^3/u L Edwards # (Auto) (0.2-0.9) 10^3/u L Eos # (Auto) (0.0-0.8) 10^3/u L Baso # (Auto) (0.0-0.1) 10^3/u L Nucleated RBC % (a uto) % Nucleated RBCs # /100WBC Fibrinogen (174-498) mg/dL D-Dimer (0-0.59) ug/mIFE U Specimen Type Sample Site ABG pH (7.35-7.45) ABG pCO2 (35-45) mmHg ABG pO2 (80.0-100.0) mmH g ABG HCO3 (22-26) mmol/L ABG O2 Saturation ABG Base Excess (-2.0-2.0) mmol/ L Drake Test A-a O2 Gradient (5-10) mmHg Hematocrit (42-52) % Hgb O2 Saturation (95-100) % Carboxyhemoglobin (0.4-20.1) %THgb Methemoglobin (0.4-1.5) % Total Hemoglobin (14-18) g/dL Sodium (131-143) mmol/L Potassium (3.5-5.0) mmol/L Glucose (70-115) mg/dL Ionized Calcium (1.1-1.4) mmol/L O2 Delivery Device Surveillance Systems Engineer ID Chloride (98-107) mmol/L Carbon Dioxide (22-29) mmol/L Anion Gap (5-19) BUN (8-23) mg/dL Creatinine (0.7-1.2) mg/dL GFR Calculation Calculated Osmolal ity (285-295) mOsm/k g Lactic Acid (0.5-2.2) mmol/L Calcium (8.5-10.5) mg/dL Magnesium 1.6 L (1.7-2.3) mg/dL Ferritin 581 H (30-400) ng/mL Total Bilirubin (0.15-1.2) mg/dL AST (0-40) U/L ALT (0-41) U/L Alkaline Phosphata se (40-130) IU/L Lactate Dehydrogen ase 313 H (135-225) U/L Creatine Kinase 648 H* (39-308) U/L Troponin T Baselin e (0-15) ng/L Troponin T 120 Min [place] (0-15) ng/L Delta Troponin T (0-10) ABS# C-Reactive Protein 37.9 H (0.0-4.9) mg/L NT-Pro-B Natriuret Pep (0-450) pg/mL Total Protein (6.6-8.7) g/dL Albumin (3.5-5.2) g/dL Globulin (1.3-4.6) g/dL Lipase (13-60) U/L Procalcitonin 0.83 H (0-0.5) ng/mL SARS-CoV-2 Ag (Rap id) (Negative) Discharge Plan Discharge Patient Disposition: Admitted As Inpatient Admit Provider: Kaylin Thomas Clinical Impression: COVID-19 virus infection, Acute kidney injury, Chronic kidney disease, stage III (moderate), Polyarteritis nodosa, DVT (deep venous thrombosis) Condition: Stable Interventions: ED Discharge Assessment Last Done: 06/15/20 12:25 ED Charges Last Done: 06/15/20 12:25 Discharge Date/Time: 06/15/20 12:48 Coding Level of Care Code ED Photo Producer for Elizabeth Fwd Exam Comprehensive
[2020-06-15 09:03] LABS: Basophils % 0.5 %; Eosinophils % 0.4 %; Hematocrit 24.9 % (42.0-52.0); Hemoglobin 7.7 g/dL (11.7-16.6); Lymphocytes # 0.4 10^3/uL (0.8-4.8); Lymphocytes % 5.8 %; Mean Corpuscular HGB Conc 30.9 g/dL (30.0-36.0); Mean Corpuscular Volume 103.3 fL (80-94); Mean Platelet Volume 10.5 fL (7.4-10.4); Monocytes # 0.5 10^3/uL (0.2-0.9); Neutrophils # 6.43 10^3/uL (1.8-7.7); Neutrophils % 86.1 %; Nucleated Red Blood Cells % 0 %; Platelet Count 205 10^3/cmm (130-400); Red Blood Count 2.41 10^6/uL (4.1-5.3); Red Cell Distribution Width 17.4 % (12.1-15.1); White Blood Count 7.5 10^3/uL (4.0-10.0)
[2020-06-15 09:17] LABS: Lactic Sepsis W/Reflex 1.1 mmol/L (0.5-2.2)
[2020-06-15 09:19] LABS: Alanine Aminotransferase 24 U/L (0-41); Albumin Level 3.4 g/dL (3.5-5.2); Alkaline Phosphatase 86 IU/L (40-130); C Reactive Protein 36.6 mg/L (0.0-4.9); Chloride 106 mmol/L (98-107); Potassium 3.3 mmol/L (3.5-5.1); Sodium 137 mmol/L (136-145)
[2020-06-15 09:31] LABS: Troponin(5th) Baseline 262 ng/L (0-15)
[2020-06-15 09:32] LABS: Anion Gap 17.3 (5-19); Aspartate Amino Transferase 24 U/L (0-40); Blood Urea Nitrogen 39 mg/dL (8-23); Calcium 7.9 mg/dL (8.5-10.5); Carbon Dioxide 17 mmol/L (22-29); Glucose 120 mg/dL (65-115); Lactate Dehydrogenase 303 U/L (135-225); Lipase 28 U/L (13-60); Osmolality Calculated 295 mOsm/kg (285-295); Total Bilirubin 0.3 mg/dL (0.15-1.2); Total Protein 5.4 g/dL (6.6-8.7)
[2020-06-15 09:32] LABS: SARS Covid-2 Antigen Positive (Negative)
--- NOTE | 2020-06-15 10:21 | ECG_ITS ---
[facility] Test Date: 2020-06-15 Pat Name: Good Alegre Department: Room: Gender: Male Handbag Frames Inspector: : 1940 Requested By: Ubaldo Loomis Order Number: [id number] Jonatan MD: Ever Chavez M.D. Measurements Intervals [place] Rate: 86 P: 17 TN: 117 QRS: 55 QRSD: 84 T: 61 QT: 400 QTc: 481 Interpretive Statements SINUS RHYTHM WITH SHORT TN INTERVAL WITH OCCASIONAL SUPRAVENTRICULAR PREMATURE COMPLEXES Compared to ECG 06/15/2020 08:41:37 No significant changes Electronically Signed On 06-15-2020 17:46:24 CDT by Ever Chavez M.D. [email or web address]
[2020-06-15 11:36] LABS: Procalcitonin 0.83 ng/mL (0-0.5)
[2020-06-15 11:47] LABS: C Reactive Protein 37.9 mg/L (0.0-4.9); Ferritin 581 ng/mL (30-400); Lactate Dehydrogenase 313 U/L (135-225); Magnesium 1.6 mg/dL (1.7-2.3)
[2020-06-15 12:18] LABS: Add Urine Microscopic? YES; Bilirubin Urine Neg (Negative); Blood Urine 3+ (Negative); Glucose Urine UA Norm (Normal); Ketones Urine Negative (Negative); Leukocyte Esterase Urine Negative (Negative); Nitrate Urine Negative (Negative); Protein Urine 3+ (Negative); Urine Appearance Clear (CLEAR); Urine Color Yellow (Yellow); Urobilinogen Urine Norm (Negative); pH Urine 5 (5-7)
--- NOTE | 2020-06-15 12:18 | P.HP_ITS ---
Providers/Chief Complaint Admitting Physician: Kaylin Thomas MD Primary Care Provider: Maricarmen Meza MD Chief Complaint: DISORIENTED, FALLING History of Present Illness Good Alegre is a 80 year old male with past medical history noted below presents to the ER accompanied by his son due to disorientation, frequent falls, generalized weakness and unsteady gait for the past several days. During my encounter in the ER patient was alone as he is on isolation precautions having just been found to be COVID-19 positive. He is very hard of hearing so history taking is quite limited. Additional information is obtained from review of medical record and collateral history obtained from son Jake. Patient was admitted to our facility last month during which time he was found to have acutely worsening anemia requiring transfusion of blood products as hemoglobin had dropped down to 4. During that admission he was found to have a right lower extremity DVT and has been on anticoagulation with Eliquis. He has known CKD stage III and follows up with a core cutter at [facility] in [place]. During my encounter he keeps repeating that he has not been feeling un well which is in contrast to what I have obtained from family in terms of history. Work-up so far indicates that he is positive for COVID-19, + none of the family members that have been in close contact with the patient have been diagnosed with this infection; but are recommended testing should they be symptomatic and continued isolation precautions. He has a hemoglobin of 7.7, white count of 7.5, potassium of 3.3, BUN of 39, creatinine of 3.0, ABG indicating hypoxia with a PO2 of 68.1, elevated baseline troponin, CPK, LDH, procalcitonin, CRP. Chest x-ray is reported as bilateral patchy interstitial opacities which may represent pulmonary vascular congestion and what I suspect to be underlying viral pneumonitis as well in light of COVID-19 infection. He is already on isolation precautions. He is currently requiring 2 L nasal cannula due to noted conversational dyspnea. Pending type and screen and will need transfusion of blood products. Will be admitted to the VICU for further m anagement of acutely worsening anemia and treatment of COVID-19 infection. Review of Systems Narrative: -Patient very hard of hearing so review of systems obtained from son over the phone Const: Reports: fatigue; Denies: fever(s) or chills ENMT: Reports: other (Chronically hard of hearing) Card: Reports: edema and swelling of feet/ankles Resp: Reports: dyspnea GI: Denies: abdominal pain, nausea, vomiting, hematemesis or hematochezia : Denies: hematuria Neuro: Reports: weakness in extremities, difficulty walking, frequent falls and confusion; Denies: numbness in extremities Medications/Allergies Home Medications Medication Instructions Recorded Confirmed Last Taken Type furosemide 20 mg tablet 10 mg PO QAM 09/12/19 06/15/20 06/13/20 History mycophenolate mofetil 500 mg tablet 1,000 mg PO BID 09/12/19 06/15/20 Unknown History nifedipine 30 mg tablet,extended 30 mg PO BID tab 09/12/19 06/15/20 06/14/20 History release 24 hr sucralfate 1 gram tablet 1 gm PO BID #60 tab 09/12/19 06/15/20 06/14/20 Rx ondansetron HCl 4 mg tablet 4 mg PO BID PRN #30 tab 10/18/19 06/15/20 Unknown Rx acitretin 25 mg PO DAILY 05/17/20 06/15/20 06/14/20 History amlodipine 10 mg PO DAILY 30 Days #30 tab 05/20/20 06/15/20 Unknown Rx cholecalciferol (vitamin D3) 1,000 unit PO DAILY 30 Days #30 tab 05/20/20 06/15/20 06/14/20 Rx hydralazine 25 mg PO TID 30 Days #90 tab 05/20/20 06/15/20 06/14/20 Rx pantoprazole 40 mg PO BID 30 Days #60 tab 05/20/20 06/15/20 06/14/20 Rx potassium chloride 10 meq PO DAILY #0 tab 05/20/20 06/15/20 06/14/20 Rx pravastatin 20 mg PO DAILY #0 tab 05/20/20 06/15/20 06/14/20 Rx apixaban [Eliquis DVT-PE Treat 30D 5 mg PO BID 06/15/20 06/15/20 06/14/20 History Start] aspirin 81 mg PO DAILY 06/15/20 06/15/20 06/14/20 History cyanocobalamin (vitamin B-12) 1,000 mcg PO DAILY 06/15/20 06/15/20 06/14/20 History [Vitamin B-12] mirtazapine 30 mg PO BEDTIME 06/15/20 06/15/20 06/14/20 History Allergies Allergy/AdvReac Type Severity Reaction Status Date / Time No Known Allergies Allergy Verified 05/17/20 02:56 PFSH Acute PFSH: Medical History Anemia Chronic kidney disease, stage III (moderate) CRI (chronic renal insufficiency) Diarrhea Dyslipidemia GERD (gastroesophageal reflux disease) Gout History of DVT (deep vein thrombosis) Hypertension Idiopathic parathyroidism Immunosuppression Inguinal hernia left 11/30/2016 Polyarteritis nodosa Skin cancer Vitamin D deficiency Surgical History H/O endoscopy History of hernia repair History of hip surgery Status post biopsy of kidney Family History Other Cancer Social History Smoking and tobacco status: never smoked Alcohol intake: never Marital status: Vitals/I&O/Wt Last Vital Signs Temp 99.7 F H 06/15/20 08:16 Pulse 85 06/15/20 11:30 Resp 16 06/15/20 11:30 BP 156/86 06/15/20 11:30 Pulse Ox 96 06/15/20 11:56 Weight last 48 hrs Weight 72.575 kg Physical Exam Const: COMMON NORMALS: no acute distress and alert GENERAL APPEARANCE: cooperative, comfortable and frail appearing ORIENTATION/CONSCIOUSNESS: Yes awake OTHER: -Unable to gauge orientation due to patient being hard of hearing HENMT: COMMON NORMALS: normocephalic and atraumatic HEAD & SCALP: normocephalic and atraumatic GENERAL EAR: hearing grossly impaired Eye: COMMON NORMALS: Equal, round and reactive pupils present, EOMs intact bilaterally and conjunctivae normal CONJUNCTIVA: Yes conjunctivae normal PUPIL: Yes Equal, round and reactive pupils present Neck/C-Spine: COMMON NORMALS: full ROM GENERAL: Yes normal visual inspection and Yes trachea midline Resp: COMMON NORMALS: No retractions and No use of accessory muscles EFFORT & INSPECTION: Yes symmetric chest movement and No tachypneic AUSCULTATION: rales and diminished lung sounds OTHER: -Minimal conversational dyspnea, currently on 2 L nasal cannula Cardio: COMMON NORMALS: regular rate, regular rhythm, S1 normal heart sound present, S2 normal heart sound present and No murmurs present (Cardio) RATE: regular rate RHYTHM: regular rhythm HEART SOUNDS: S1 normal heart sound present and S2 normal heart sound present GI: COMMON NORMALS: Normal to inspection, nondistended, normoactive bowel sounds present, Soft to palpation and non-tender PALPATION: Yes Soft to palpation Extremity: COMMON NORMALS: normal to inspection and full ROM GENERAL: Yes e nelia (2-3+ bilateral lower extremity pitting edema) Neuro: COMMON NORMALS: moves all extremities, no focal motor deficits and no sensory deficits noted SENSORIUM/ORIENTATION: Yes alert Psych: COMMON NORMALS: cooperative, normal affect and speech normal SPEECH: Yes normal speech Skin: COMMON NORMALS: no jaundice, no petechiae and no mottling NARRATIVE SKIN EXAM: -Scattered skin lesions Data : 06/15/20 08:50 06/15/20 08:50 A&P Assessment and plan (1) COVID-19 virus infection: -COVID-19 positive; noted normal white count, lactic acid; elevated ferritin, LDH, CPK, baseline troponin, CRP. Monitor inflammatory markers daily. LFTs normal -isolation precautions -Chest x-ray noted bilateral patchy interstitial opacities part of which could be secondary to pulmonary vascular congestion as well as a viral pneumonitis secondary to COVID-19 infection -Currently requiring 2 L nasal cannula, maintaining saturation at 95 to 96% -Does not appear to be in any acute distress currently -Close monitoring of vital signs -Close monitoring of respiratory status, weaned off supplemental oxygen support as tolerated -Start on vitamin C, zinc, dexamethasone -start on Remdesevir; ABG shows hypoxia with PO2 of 68.1, done on room air -Hold CellCept which patient is on due to underlying history of polyarteritis nodosa -Inhaler treatments as needed Status: Acute (2) Anemia: -Has known history of anemia and has had prior GI work-up which per patient was negative for any acute bleeding source -Prior admission last month for severe anemia with hemoglobin as low as 4 and requirement of transfusion of blood products -We will transfuse 1 unit to start with in light of risk of fluid overload; goal hemoglobin would be around 8 Status: Acute Qualifiers: Anemia type: unspecified type Qualified Code(s): D64.9 - Anemia, unspecified (3) Congestive heart failure: -Acute exacerbation of CHF as evidenced by lower extremity edema, increased shortness of breath part of which is due to viral infection as noted above -Start on IV diuresis with close monitoring of renal function -Last echo done in 05/2020 showed ejection fraction of 62% with mild concentric LVH, mild AR, trace MR, trace TR -check BNP, need to interpret this with renal function in mind Status: Acute Qualifiers: Heart failure type: diastolic Heart failure chronicity: acute on chronic Qualified Code(s): I50.33 - Acute on chronic diastolic (congestive) heart failure (4) Chronic kidney disease, stage III (moderate): -has known CKD stage 3 -baseline Cr is around 3 -continue to monitor renal function, avoid nephrotoxins, renally dose meds -Had renal ultrasound done last month which showed markedly diminished velocities in the renal arteries which may be suggestive of proximal stenosis, unfortunately cannot do CTA due to renal function -Follows up with nephrology at [facility] Status: Chronic (5) Polyarteritis nodosa: -Hold CellCept Status: Chronic Additional A&P Information -Recurrent falls, generalized weakness, physical deconditioning; part of this could be due to acutely worsening anemia and viral infection as noted above. 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 Not be a good candidate for long-term anticoagulation given underlying anemia with need for transfusion of blood products, recurrent falls -Known history of hypertension, resume oral antihypertensives -GERD; on PPI and carafate -Hyperlipidemia; hold statin, check CPK -Skin cancer affecting L ear; currently undergoing treatment -Very hard of hearing; hearing slightly better on the R -Hypokalemia, replace as needed -Hypomagnesemia, replace as needed -Noted disorientation per son, head CT negative, reorient as needed -CLD for now -GI ppx with PPI -DVT ppx with SCDs, no AC due to bleeding risk -Dispo: came from home, family open to SNF if needed -Code status: FULL code, discussed with son Jake -Admit to [facility] Attestations Medical Necessity Statement*: Good Alegre's hospital stay will require greater than 2 midnights for management of COVID-19 infection, currently requiring supplemental oxygen support and close monitoring of respiratory status as well as management of acutely worsening anemia requiring transfusion of blood products. Time Spent in Patient Care: Greater than 35 minutes (>than 50% of time spent in counselling and/or direct pt care on unit) . Coding Level of Care Code Acute Tow Motor Mechanic for [facility] Fwd Diagnoses COVID-19 virus infection U07.1 Anemia D64.9 Anemia type: unspecified type Congestive heart failure I50.33 Heart failure type: diastolic Heart failure chronicity: acute on chronic Chronic kidney disease, stage III (moderate) N18.3 Polyarteritis nodosa M30.0
[2020-06-15 12:22] LABS: Creatine Phosphokinase 648 U/L (39-308)
[2020-06-15 12:27] LABS: Troponin 5 2HR 230.1 ng/L (0-15); Troponin 5 2HR Delta -31.9 ABS# (0-10)
[2020-06-15 12:44] LABS: Lactic Sepsis W/Reflex 0.6 mmol/L (0.5-2.2)
[2020-06-15 12:49] LABS: Add Urine Culture? No; Amorphous Sediment Urine 1+ /hpf; Bacteria Urine 1+ /hpf; Hyaline Casts Urine 0-4 /lpf; RBC Urine 0-4 /hpf (0-2); Squamous Epithelial Cell Urine 0-4 /hpf (0-5); WBC Urine 0-4 /hpf (0-5)
[2020-06-15 13:57] LABS: Fibrinogen 429 mg/dL (174-498)
[2020-06-15 14:06] LABS: D Dimer 4.41 ug/mIFEU (0-0.59)
[2020-06-15 14:11] LABS: NT Pro B Type Natriuretic Pept 33576 pg/mL (0-450)
--- NOTE | 2020-06-15 14:21 | ECG_ITS ---
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 Measurements Intervals [place] Rate: 87 P: 12 WA: 132 QRS: 29 QRSD: 77 T: 61 QT: 385 QTc: 464 Interpretive Statements SINUS RHYTHM WITH OCCASIONAL SUPRAVENTRICULAR PREMATURE COMPLEXES LOW QRS VOLTAGE IN EXTREMITY LEADS [QRS DEFLECTION < 0.5 mV IN LIMB LEADS] Compared to ECG 06/15/2020 10:32:29 Low QRS voltage now present Short WA interval no longer present Electronically Signed On 06-20-2020 18:12:56 CDT by Gladys Bruner M.D. [id number]
[2020-06-15] MEDS: magnesium sulfate premix 2 GM/50 ML PIGGYBACK IV (14:33)
[2020-06-15] MEDS: cyanocobalamin 1,000 mcg Tablet 1000 MCG PO (14:34)
[2020-06-15] MEDS: dexamethasone 4 mg/mL INJ 6 MG IVP (14:34)
[2020-06-15] MEDS: FUROsemide 10 mg/mL SDV 4mL 40 MG IVP (14:35)
[2020-06-15] MEDS: potassium chloride ER 10 mEq Tablet 40 MEQ PO (14:35)
[2020-06-15] MEDS: zinc gluconate 50 mg Tablet PO (14:35)
[2020-06-15] MEDS: hyDRALAzine 25 mg Tablet PO ×2 (14:35→20:31)
[2020-06-15 15:07] LABS: Influenza A by IFA Negative (Negative); Influenza B by IFA Negative (Negative)
[2020-06-15 16:58] LABS: Troponin 5 6HR 230.3 ng/L (0-15); Troponin 5 6HR Delta -31.7 ng/L (0-12)
[2020-06-15] MEDS: sodium chloride 0.9% 250 ML 30 ML IV (17:03)
[2020-06-15] MEDS: pantoprazole DR 40 mg Tablet PO (17:04)
[2020-06-15] MEDS: ascorbic acid 500 mg Tablet PO (17:04)
[2020-06-15] MEDS: sucralfate 1 gm Tablet PO (17:04)
--- NOTE | 2020-06-15 18:29 | PC.OT ---
OT note: Pt's hgb noted to be below 8 and appears may be getting blood. Will hold eval at this time.
--- NOTE | 2020-06-15 19:58 | PC.NURSE ---
Patient's son, Jake, called to check on patient. Updated on patient condition, answered all questions et addressed concerns. Will continue to monitor.
[2020-06-15] MEDS: mirtazapine 30 mg Tablet PO (20:32)
[2020-06-15 21:07] LABS: Hematocrit 26.8 % (42.0-52.0); Hemoglobin 8.2 g/dL (11.7-16.6)
--- NOTE | 2020-06-15 21:49 | PC.NURSE ---
HEMOGLOBIN Patients post infusion H&H drawn. Hemoglobin at 8.2 and hematocrit 26.8. History and physical assessment and plan states goal hemoglobin of 8.
[2020-06-16] VITALS (55 sets, daily range): BP systolic 127–198; BP diastolic 68–120; PULSE 61–99; RESP 0–18; TEMP 36.1–37.7; O2SAT 86–99
--- NOTE | 2020-06-16 03:38 | PC.NURSE ---
LASIX DOSE/K+ Nurse informed physician of potassium level of 3.3. Previous shift gave current nurse report that patient got magnesium and potassium replacement in ER. Magnesium replacement noted on NOV, but potassium replacement not noted. 0300 dose of lasix will be held until morning labs come back to see what potassium level is. Will obtain further orders at that time.
[2020-06-16 06:04] LABS: Basophils % 0.2 %; Hematocrit 30.1 % (42.0-52.0); Hemoglobin 9.5 g/dL (11.7-16.6); Lymphocytes # 0.3 10^3/uL (0.8-4.8); Mean Corpuscular HGB Conc 31.6 g/dL (30.0-36.0); Mean Corpuscular Hemoglobin 31.5 pg (28.0-34.0); Mean Corpuscular Volume 99.7 fL (80-94); Monocytes # 0.2 10^3/uL (0.2-0.9); Monocytes % 4.3 %; Neutrophils # 4.69 10^3/uL (1.8-7.7); Neutrophils % 88.6 %; Nucleated Red Blood Cells % 0 %; Platelet Count 187 10^3/cmm (130-400); Red Blood Count 3.02 10^6/uL (4.1-5.3); Red Cell Distribution Width 18.2 % (12.1-15.1); White Blood Count 5.3 10^3/uL (4.0-10.0)
[2020-06-16 06:37] LABS: Alanine Aminotransferase 18 U/L (0-41); Albumin Level 2.8 g/dL (3.5-5.2); Alkaline Phosphatase 75 IU/L (40-130); Anion Gap 15.8 (5-19); Aspartate Amino Transferase 20 U/L (0-40); Blood Urea Nitrogen 41 mg/dL (8-23); Calcium 7.9 mg/dL (8.5-10.5); Carbon Dioxide 17 mmol/L (22-29); Chloride 106 mmol/L (98-107); Globulin 2.2 g/dL (1.3-4.6); Glucose 112 mg/dL (65-115); Osmolality Calculated 291 mOsm/kg (285-295); Potassium 3.8 mmol/L (3.5-5.1); Sodium 135 mmol/L (136-145); Total Bilirubin 0.2 mg/dL (0.15-1.2)
[2020-06-16 06:38] LABS: Magnesium 1.9 mg/dL (1.7-2.3)
[2020-06-16 06:39] LABS: C Reactive Protein 38.3 mg/L (0.0-4.9)
--- NOTE | 2020-06-16 06:41 | PC.NURSE ---
SHIFT SUMMARY Patient alert and oriented x 3. Patient had 300 mL urine output this shift. Physician notified and instructed to hold lasix dose that was previously held for potassium of 3.3. Potassium level of 3.8, but physician wants lasix held until morning creatinine level is back. Further orders will be obtained at that time. Patient has been hypertensive, physician notified and awaiting further orders. Patient has rested well tonight and has denied any complaints of pain.
[2020-06-16 06:42] LABS: Procalcitonin 1.14 ng/mL (0-0.5)
[2020-06-16 06:50] LABS: Creatine Phosphokinase 442 U/L (39-308)
[2020-06-16 06:53] LABS: Ferritin 668 ng/mL (30-400); Lactate Dehydrogenase 246 U/L (135-225)
--- NOTE | 2020-06-16 06:55 | PC.NURSE ---
BLOOD PRESSURE Physician gave order to give 0900 dose of hydralazine now due to hypertension and to go ahead with lasix 40 mg IVP that was held at 0300.
[2020-06-16] MEDS: FUROsemide 10 mg/mL SDV 4mL 40 MG IVP ×2 (07:02→16:05)
[2020-06-16] MEDS: hyDRALAzine 25 mg Tablet PO (07:26)
[2020-06-16 07:56] LABS: INR 1.32 (0.8-1.2)
[2020-06-16 07:57] LABS: Fibrinogen 511 mg/dL (174-498)
[2020-06-16 08:06] LABS: D Dimer 3.95 ug/mIFEU (0-0.59)
[2020-06-16] MEDS: pantoprazole DR 40 mg Tablet PO ×2 (08:59→18:48)
[2020-06-16] MEDS: ascorbic acid 500 mg Tablet PO ×2 (08:59→18:48)
[2020-06-16] MEDS: potassium chloride ER 10 mEq Tablet 40 MEQ PO (08:59)
[2020-06-16] MEDS: cholecalciferol (vitamin D3) 1,000 unit Tablet 1000 UNIT PO (09:00)
[2020-06-16] MEDS: amlodipine 10 mg Tablet PO (09:00)
[2020-06-16] MEDS: zinc gluconate 50 mg Tablet PO (09:00)
[2020-06-16] MEDS: sennosides-docusate Tablet 1 TAB PO ×2 (09:00→18:48)
[2020-06-16] MEDS: sucralfate 1 gm Tablet PO ×2 (09:00→18:49)
[2020-06-16] MEDS: cyanocobalamin 1,000 mcg Tablet 1000 MCG PO (09:01)
--- NOTE | 2020-06-16 11:00 | PC.NURSE ---
Dr Ewing notified regarding persistent HTN. Dr will place orders.
--- NOTE | 2020-06-16 11:20 | P.PN_ITS ---
Subjective Subjective: Interval history: 1 unit of PRBCs with appropriate increase in hemoglobin, 9.5 this morning. Hypertensive throughout the night part of which could be due to steroids. Had 300 mL urine output overnight, on day 2 of Remdesevir. Overall appearance improved today, requesting additional linen as he feels quite cold, continues to be hypertensive. Requesting more solid food. Evaluated by physical therapy this morning. Medications: Reviewed: Yes Medication Review Details: Active Medications Generic Name Dose Route Start Last Admin Trade Name Freq PRN Reason Stop Dose Admin Acetaminophen 650 mg 06/15/20 12:46 Tylenol PO Q6H PRN Mild/Mod Pain Or Temp >/= 101 Albuterol Sulfate 2 puff 06/15/20 16:36 Ventolin INHALATION Q4H.RESPIRATORY P RN SHORTNESS OF LUBA TH Amlodipine Besylat e 10 mg 06/16/20 09:00 06/16/20 09:00 Norvasc PO 10 mg DAILY BLOSSOM Administration Ascorbic Acid 500 mg 06/15/20 18:00 06/16/20 08:59 Vitamin C PO 500 mg BID BLOSSOM Administration Cyanocobalamin 1,000 mcg 06/15/20 15:00 06/16/20 09:01 Vitamin B-12 PO 1,000 mcg DAILY BLOSSOM Administration Dexamethasone 6 mg 06/15/20 15:00 06/15/20 14:34 Decadron IVP 6 mg Q24H BLOSSOM Administration Furosemide 40 mg 06/15/20 15:00 06/16/20 03:42 Lasix IVP Not Given Q12H BLOSSOM Hydralazine HCl 50 mg 06/16/20 15:00 Apresoline PO TID BLOSSOM remdesivir (EUA) 1 00 mg/ 100 mls @ 100 mls /hr 06/16/20 14:30 Sodium Chloride IV 06/19/20 15:29 Q24H BLOSSOM Lorazepam 1 mg 06/15/20 12:46 Ativan IVP Q6H PRN Anxiety or agitat ion Mirtazapine 30 mg 06/15/20 21:00 06/15/20 20:32 Remeron PO 30 mg BEDTIME BLOSSOM Administration Morphine Sulfate 2 mg 06/15/20 12:46 Morphine IVP Q6H PRN SEVERE PAIN Ondansetron HCl 4 mg 06/15/20 12:46 Zofran IVP Q6H PRN NAUSEA AND VOMITI NG Pantoprazole Sodiu m 40 mg 06/15/20 18:00 06/16/20 08:59 Protonix PO 40 mg BID BLOSSOM Administration Potassium Chloride 40 meq 06/15/20 15:00 06/16/20 08:59 Klor-Con 10 PO 40 meq DAILY BLOSSOM Administration Senna/Docusate Sod ium 1 tab 06/15/20 18:00 06/16/20 09:00 Senna-S PO 1 tab BID BLOSSOM Administration Sucralfate 1 gm 06/15/20 18:00 06/16/20 09:00 Carafate PO 1 gm BID BLOSSOM Administration Vitamin D 1,000 unit 06/16/20 09:00 06/16/20 09:00 Vitamin D3 PO 1,000 unit DAILY BLOSSOM Administration Zinc Gluconate 50 mg 06/15/20 15:00 06/16/20 09:00 Zinc Gluconate PO 50 mg DAILY BLOSSOM Administration No Known Allergies Allergy (Verified 05/17/20 02:56) Vitals/I&O/Wt Last Vital Signs Temp 98.5 F 06/15/20 19:30 Pulse 71 06/16/20 10:30 Resp 3 L 06/16/20 10:30 BP 181/108 06/16/20 10:30 Pulse Ox 97 06/16/20 10:30 06/15/20 06/16/20 06/16/20 22:59 06:59 14:59 Intake Total 590 / 590 Output Total 500 / 500 200 / 700 Balance 90 / 90 -200 / -110 Weight last 48 hrs Weight 75.16 kg Weight 73.936 kg Weight 72.575 kg Physical Exam Const: COMMON NORMALS: no acute distress, patient oriented x3 and alert GENERAL APPEARANCE: cooperative and comfortable ORIENTATION/CONSCIOUSNESS: Yes awake OTHER: -Unable to gauge orientation due to patient being hard of hearing -overall appearance improved HENMT: COMMON NORMALS: normocephalic, atraumatic, hearing grossly normal bilaterally and moist oral mucous membranes HEAD & SCALP: normocephalic and atraumatic GENERAL EAR: hearing grossly impaired Eye: COMMON NORMALS: Equal, round and reactive pupils present, EOMs intact bilaterally and conjunctivae normal CONJUNCTIVA: Yes conjunctivae normal PUPIL: Yes Equal, round and reactive pupils present Neck/C-Spine: COMMON NORMALS: full ROM GENERAL: Yes normal visual inspect ion and Yes trachea midline Resp: COMMON NORMALS: normal respiratory effort, No retractions, No use of accessory muscles and clear to auscultation bilaterally EFFORT & INSPECTION: Yes able to speak in complete sentences, Yes symmetric chest movement and No tachypneic AUSCULTATION: clear to auscultation bilaterally OTHER: -On 2 L nasal cannula Cardio: COMMON NORMALS: regular rate, regular rhythm, S1 normal heart sound present, S2 normal heart sound present and No murmurs present (Cardio) RATE: regular rate RHYTHM: regular rhythm HEART SOUNDS: S1 normal heart sound present and S2 normal heart sound present GI: COMMON NORMALS: Normal to inspection, nondistended, normoactive bowel sounds present, Soft to palpation and non-tender PALPATION: Yes Soft to palpation Extremity: COMMON NORMALS: normal to inspection and full ROM GENERAL: Yes edema (2+ bilateral lower extremity pitting edema) Neuro: COMMON NORMALS: patient oriented x3, moves all extremities, no focal motor deficits and no sensory deficits noted SENSORIUM/ORIENTATION: Yes alert Psych: COMMON NORMALS: mental status grossly normal, Normal thought process present, cooperative, normal affect and speech normal SPEECH: Yes normal speech THOUGHT PROCESS: Normal thought process present Skin: COMMON NORMALS: no rashes or lesions noted, no jaundice, no petechiae and no mottling NARRATIVE SKIN EXAM: -Scattered skin lesions GENERAL SKIN EXAM: no rashes or lesions noted Data : 06/16/20 03:55 06/16/20 03:55 Micro: Microbiology 06/15/20 08:50 Blood Culture - Preliminary Blood SPECIMEN COLLECTED 06/15/20 08:55 Blood Culture - Preliminary Blood SPECIMEN COLLECTED A&P Assessment and plan (1) COVID-19 virus infection: -COVID-19 positive; noted normal white count, lactic acid; elevated ferritin, LDH, CPK, baseline troponin, CRP. Monitor inflammatory markers daily. LFTs normal -isolation precautions -Chest x-ray noted bilateral patchy interstitial opacities part of which could be secondary to pulmonary vascular congestion as well as a viral pneumonitis secondary to COVID-19 infection. Repeat CXR tomorrow to monitor progression -Currently requiring 2 L nasal cannula -Close monitoring of vital signs -Close monitoring of respiratory status, weaned off supplemental oxygen support as tolerated -continue supportivr care including vitamin C, zinc, dexamethasone, inhaler treatments as needed, pulmonary toilet, IS -on Remdesevir (day 2/); ABG shows hypoxia with PO2 of 68.1, done on room air -Hold CellCept which patient is on due to underlying history of polyarteritis nodosa -blood cx pending, order MRSA, Legionella, bacterial antigens. Sputum culture and gram stain pending receipt of sample Status: Acute (2) Anemia: -Has known history of anemia and has had prior GI work-up which per patient was negative for any acute bleeding source -Prior admission last month for severe anemia with hemoglobin as low as 4 and requirement of transfusion of blood products -s/p 1 unit with improvement in Hg; goal hemoglobin would be around 8; continue to monitor closely Status: Acute Qualifiers: Anemia type: unspecified type Qualified Code(s): D64.9 - Anemia, unspecified (3) Congestive heart failure: -Acute exacerbation of CHF as evidenced by lower extremity edema, increased shortness of breath part of which is due to viral infection as noted above -Start on IV diuresis with close monitoring of renal function -Last echo done in 05/2020 showed ejection fraction of 62% with mild concentric LVH, mild AR, trace MR, trace TR -BNP >33,000, need to interpret this with renal function in mind Status: Acute Qualifiers: Heart failure chronicity: acute on chronic Heart failure type: diastolic Qualified Code(s): I50.33 - Acute on chronic diastolic (congestive) heart failure (4) Chronic kidney disease, stage III (moderate): -has known CKD stage 3 -baseline Cr is around 3 -continue to monitor renal function, avoid nephrotoxins, renally dose meds -Had renal ultrasound done last month which showed markedly diminished velocities in the renal arteries which may be suggestive of proximal stenosis, unfortunately cannot do CTA due to renal function -Follows up with nephrology at [facility] Status: Chronic (5) Polyarteritis nodosa: -Hold CellCept Status: Chronic Additional A&P Information -Recurrent falls, generalized weakness, physical deconditioning; part of this could be due to acutely worsening anemia and viral infection as noted above. 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 Not be a good candidate for long-term anticoagulation given underlying anemia with need for transfusion of blood products, recurrent falls -Known history of hypertension, resume oral antihypertensives -GERD; on PPI and carafate -Hyperlipidemia; hold statin, trend CPK -Skin cancer affecting L ear; currently undergoing treatment -Very hard of hearing; hearing slightly better on the R -Hypokalemia, resolved, replace as needed -Hypomagnesemia, resolved, replace as needed -Noted disorientation per son, head CT negative, reorient as needed -Rhabdomyolysis: CPK trending down -advance to cardiac diet -GI ppx with PPI -DVT ppx with SCDs, no AC due to bleeding risk -Dispo: came from home, family open to SNF if needed -Code status: FULL code, discussed with son Jake Attbenyhipolito Medical Necessity Statement*: Patient requires hospitalization for continued treatment of COVID-19 infection, on antiviral treatment, as well as acute diastolic CHF exacerbation, on IV diuretics. Time Spent in Patient Care: 16 - 35 minutes (>than 50% of time spent in counselling and/or direct pt care on unit) . Coding Level of Care Code Acute Building Coordinator for g Fwd Exam Comprehensive Diagnoses COVID-19 virus infection U07.1 Anemia D64.9 Anemia type: unspecified type Congestive heart failure I50.33 Heart failure chronicity: acute on chronic Heart failure type: diastolic Chronic kidney disease, stage III (moderate) N18.3 Polyarteritis nodosa M30.0
[2020-06-16] MEDS: hyDRALAzine 20 mg/mL INJ 1 mL 10 MG IVP (12:02)
[2020-06-16] MEDS: dexamethasone 4 mg/mL INJ 6 MG IVP (16:05)
[2020-06-16] MEDS: hyDRALAzine 50 mg Tablet PO ×2 (16:07→21:02)
[2020-06-16] MEDS: mirtazapine 30 mg Tablet PO (21:02)
[2020-06-17] VITALS (49 sets, daily range): BP systolic 113–161; BP diastolic 67–124; PULSE 69–99; RESP 0–20; TEMP 36.4–37; O2SAT 92–98
[2020-06-17] MEDS: FUROsemide 10 mg/mL SDV 4mL 40 MG IVP ×2 (03:32→16:05)
--- NOTE | 2020-06-17 05:16 | PC.NURSE ---
TEARFUL Patient appeared tearful and upset at beginning of shift. Patient has not been tearful since about 2300 and stated that he was just missing home.
--- NOTE | 2020-06-17 05:20 | PC.NURSE ---
TAKING MEDS Patients medications were originally crushed in applesauce on admission and patient started gagging. Patient told previous shifts nurse that he would like them split into smaller pieces in applesauce so they did not taste as bad. Patient stated while taking medications this shift that he would like to try them in pudding next time to see if that will taste better. Will pass on in change of shift report.
--- NOTE | 2020-06-17 06:00 | XR_ITS ---
WS: [id number] XR chest 1V portable [id number] REASON FOR EXAM: COVID-19 infection, progression of vascular congestion FINDINGS: The heart is mildly enlarged. On the previous chest x-ray of 06/15/2020, there were ill-defined densities in both central lungs. Thi s finding appears less prominent than on the previous examination. The inspiration is suboptimal however the hemidiaphragmatic contours, most notably the left are obscu red. This appears to be due to pleural fluid and/or infiltrative changes in the lung bases. Patient w as shown to have bilateral pleural effusions on CT scan of the chest 05/18/2020. XR/XR chest 1V portable [id number] IMPRESSION: The ill-defined densities in both lungs may be resolving. Patient has bilateral pleural effusions and likely lung consolidation in both lower lobes most promi nently on the left. Pleural effusions were present on previous CT scan on 05/18.
[2020-06-17 06:16] LABS: Basophils % 0.1 %; Hematocrit 30.3 % (42.0-52.0); Hemoglobin 9.7 g/dL (11.7-16.6); Lymphocytes # 0.3 10^3/uL (0.8-4.8); Lymphocytes % 3.1 %; Mean Corpuscular Hemoglobin 31.1 pg (28.0-34.0); Mean Corpuscular Volume 97.1 fL (80-94); Mean Platelet Volume 10.7 fL (7.4-10.4); Monocytes # 0.3 10^3/uL (0.2-0.9); Monocytes % 2.6 %; Neutrophils # 9.72 10^3/uL (1.8-7.7); Neutrophils % 93.6 %; Nucleated Red Blood Cells % 0 %; Platelet Count 239 10^3/cmm (130-400); Red Blood Count 3.12 10^6/uL (4.1-5.3); Red Cell Distribution Width 18.2 % (12.1-15.1); White Blood Count 10.4 10^3/uL (4.0-10.0)
--- NOTE | 2020-06-17 06:41 | PC.NURSE ---
EVENT Patient ambulated out in [facility] without assistance. Patient had accident in bed and was coming to get help. Patient stated that he thought he was at home and was getting out of bed and then remembered he was in the hospital. Patients stool sample able to be obtained from bowel movement. Patients linens changed and patient given bath.
[2020-06-17 07:01] LABS: Procalcitonin 1.46 ng/mL (0-0.5)
[2020-06-17 07:04] LABS: Alanine Aminotransferase 16 U/L (0-41); Albumin Level 2.7 g/dL (3.5-5.2); Alkaline Phosphatase 72 IU/L (40-130); Anion Gap 17.2 (5-19); Aspartate Amino Transferase 16 U/L (0-40); Blood Urea Nitrogen 47 mg/dL (8-23); C Reactive Protein 27.7 mg/L (0.0-4.9); Calcium 8.1 mg/dL (8.5-10.5); Carbon Dioxide 17 mmol/L (22-29); Chloride 106 mmol/L (98-107); Creatine Phosphokinase 212 U/L (39-308); Globulin 2.2 g/dL (1.3-4.6); Glucose 127 mg/dL (65-115); Osmolality Calculated 296 mOsm/kg (285-295); Potassium 4.2 mmol/L (3.5-5.1); Sodium 136 mmol/L (136-145); Total Bilirubin 0.2 mg/dL (0.15-1.2); Total Protein 4.9 g/dL (6.6-8.7)
[2020-06-17 07:18] LABS: Ferritin 574 ng/mL (30-400); Lactate Dehydrogenase 232 U/L (135-225)
[2020-06-17 07:27] LABS: Fibrinogen 380 mg/dL (174-498)
--- NOTE | 2020-06-17 07:41 | PC.NURSE ---
Jake Patient's son is requesting that the Physician call his dads [place] [phone] and talk with him or his sister regarding discharge planning. Will notify Dr. Thomas when she rounds today.
[2020-06-17 07:52] LABS: D Dimer 4.67 ug/mIFEU (0-0.59)
--- NOTE | 2020-06-17 08:14 | P.PN_ITS ---
Subjective Subjective: Interval history: Maintained on 2 L nasal cannula, had 400 mL urine output overnight, mild leukocytosis this morning, improved hemoglobin to 9.7, noted hypertension. On day 3 of Remdesevir. Noted inflammatory markers. Chest x-ray findings reviewed. Good appetite and oral intake. Lower extremity edema continues to resolve. Medications: Reviewed: Yes Medication Review Details: Active Medications Generic Name Dose Route Start Last Admin Trade Name Freq PRN Reason Stop Dose Admin Acetaminophen 650 mg 06/15/20 12:46 Tylenol PO Q6H PRN Mild/Mod Pain Or Temp >/= 101 Albuterol Sulfate 2 puff 06/15/20 16:36 Ventolin INHALATION Q4H.RESPIRATORY P RN SHORTNESS OF LUBA TH Amlodipine Besylat e 10 mg 06/16/20 09:00 06/16/20 09:00 Norvasc PO 10 mg DAILY BLOSSOM Administration Ascorbic Acid 500 mg 06/15/20 18:00 06/16/20 18:48 Vitamin C PO 500 mg BID BLOSSOM Administration Cyanocobalamin 1,000 mcg 06/15/20 15:00 06/16/20 09:01 Vitamin B-12 PO 1,000 mcg DAILY BLOSSOM Administration Dexamethasone 6 mg 06/15/20 15:00 06/16/20 16:05 Decadron IVP 6 mg Q24H BLOSSOM Administration Furosemide 40 mg 06/15/20 15:00 06/17/20 03:32 Lasix IVP 40 mg Q12H BLOSSOM Administration Hydralazine HCl 50 mg 06/16/20 15:00 06/16/20 21:02 Apresoline PO 50 mg TID BLOSSOM Administration remdesivir (EUA) 1 00 mg/ 100 mls @ 100 mls /hr 06/16/20 14:30 06/16/20 15:59 Sodium Chloride IV 06/19/20 15:29 100 mls/hr Q24H BLOSSOM Administration Lorazepam 1 mg 06/15/20 12:46 Ativan IVP Q6H PRN Anxiety or agitat ion Mirtazapine 30 mg 06/15/20 21:00 06/16/20 21:02 Remeron PO 30 mg BEDTIME BLOSSOM Administration Morphine Sulfate 2 mg 06/15/20 12:46 Morphine IVP Q6H PRN SEVERE PAIN Ondansetron HCl 4 mg 06/15/20 12:46 Zofran IVP Q6H PRN NAUSEA AND VOMITI NG Pantoprazole Sodiu m 40 mg 06/15/20 18:00 06/16/20 18:48 Protonix PO 40 mg BID BLOSSOM Administration Potassium Chloride 40 meq 06/15/20 15:00 06/16/20 08:59 Klor-Con 10 PO 40 meq DAILY BLOSSOM Administration Senna/Docusate Sod ium 1 tab 06/15/20 18:00 06/16/20 18:48 Senna-S PO 1 tab BID BLOSSOM Administration Sucralfate 1 gm 06/15/20 18:00 06/16/20 18:49 Carafate PO 1 gm BID BLOSSOM Administration Vitamin D 1,000 unit 06/16/20 09:00 06/16/20 09:00 Vitamin D3 PO 1,000 unit DAILY BLOSSOM Administration Zinc Gluconate 50 mg 06/15/20 15:00 06/16/20 09:00 Zinc Gluconate PO 50 mg DAILY BLOSSOM Administration No Known Allergies Allergy (Verified 05/17/20 02:56) Vitals/I&O/Wt Last Vital Signs Temp 97.5 F L 06/17/20 01:12 Pulse 75 06/17/20 06:30 Resp 4 L 06/17/20 06:30 BP 161/96 06/17/20 06:30 Pulse Ox 97 06/17/20 06:30 06/16/20 06/17/20 06/17/20 22:59 06:59 14:59 Intake Total 60 / 620 120 / 740 Output Total 1040 / 1040 300 / 1340 Balance -980 / -420 -180 / -600 Weight last 48 hrs Weight 68.402 kg Weight 75.16 kg Weight 73.936 kg Weight 72.575 kg Physical Exam Const: COMMON NORMALS: no acute distress, patient oriented x3 and alert GENERAL APPEARANCE: cooperative, comfortable and frail appearing ORIENTATION/CONSCIOUSNESS: Yes awake HENMT: COMMON NORMALS: normocephalic, atraumatic, hearing grossly normal bilaterally and moist oral mucous membranes HEAD & SCALP: normocephalic and atraumatic GENERAL EAR: hearing grossly impaired Eye: COMMON NORMALS: Equal, round and reactive pupils present, EOMs intact bilaterally and conjunctivae normal CONJUNCTIVA: Yes conjunctivae normal PUPIL: Yes Equal, round and reactive pupils present Neck/C-Spine: COMMON NORMALS: full ROM GENERAL: Yes normal visual inspection and Yes trachea midline Resp: COMMON NORMALS: normal respiratory effort, No retractions and No use of accessory muscles EFFORT & INSPECTION: Yes able to speak in complete sentences, Yes symmetric chest movement and No tachypneic AUSCULTATION: rales and diminished lung sounds OTHER: -On 2 L NC Cardio: COMMON NORMALS: regular rate, regular rhythm, S1 normal heart sound present, S2 normal heart sound present and No murmurs present (Cardio) RATE: regular rate RHYTHM: regular rhythm HEART SOUNDS: S1 normal heart sound present and S2 normal heart sound present GI: COMMON NORMALS: Normal to inspection, nondistended, normoactive bowel sounds present, Soft to palpation and non-tender PALPATION: Yes Soft to palpation Extremity: COMMON NORMALS: normal to inspection and full ROM GENERAL: Yes edema (1+ bilateral lower extremity pitting edema) Neuro: COMMON NORMALS: patient oriented x3, moves all extremities, no focal motor deficits and no sensory deficits noted SENSORIUM/ORIENTATION: Yes alert Psych: COMMON NORMALS: mental status grossly normal, Normal thought process present, cooperative, normal affect and speech normal SPEECH: Yes normal speech THOUGHT PROCESS: Normal thought process present Skin: COMMON NORMALS: no rashes or lesions noted, no jaundice, no petechiae and no mottling NARRATIVE SKIN EXAM: -Scattered skin lesions GENERAL SKIN EXAM: no rashes or lesions noted Data : 06/17/20 04:00 06/17/20 04:00 Micro: Microbiology 06/15/20 08:50 Blood Culture - Preliminary Blood NEGATIVE TO DATE 06/15/20 08:55 Blood Culture - Preliminary Blood NEGATIVE TO DATE 06/15/20 14:10 MRSA Culture - Final Nose A&P Assessment and plan (1) COVID-19 virus infection: -COVID-19 positive; noted normal white count, lactic acid; elevated ferritin, LDH, CPK, baseline troponin, CRP. Monitor inflammatory markers daily. LFTs normal -isolation precautions -Chest x-ray noted bilateral patchy interstitial opacities part of which could be secondary to pulmonary vascular congestion as well as a viral pneumonitis secondary to COVID-19 infection. Repeat CXR today shows improvement -Stable oxygen requirement of 2 L nasal cannula -Close monitoring of vital signs -Close monitoring of respiratory status, weaned off supplemental oxygen support as tolerated -continue supportive care including vitamin C, zinc, dexamethasone, inhaler treatments as needed, pulmonary toilet, IS -on Remdesevir (day 3/5); ABG shows hypoxia with PO2 of 68.1, done on room air -Hold CellCept which patient is on due to underlying history of polyarteritis nodosa -blood cx prelim negative, MRSA negative, Legionella, bacterial antigens pending. Sputum culture and gram stain pending receipt of sample Status: Acute (2) Anemia: -Has known history of anemia and has had prior GI work-up which per patient was negative for any acute bleeding source -Prior admission last month for severe anemia with hemoglobin as low as 4 and requirement of transfusion of blood products -s/p 1 unit with improvement in Hg; goal hemoglobin would be around 8; continue to monitor closely Status: Acute Qualifiers: Anemia type: unspecified type Qualified Code(s): D64.9 - Anemia, unspecified (3) Congestive heart failure: -Acute exacerbation of CHF as evidenced by lower extremity edema, increased shortness of breath part of which is due to viral infection as noted above -on IV diuresis with close monitoring of renal function; diuresing well -Last echo done in 05/2020 showed ejection fraction of 62% with mild concentric LVH, mild AR, trace MR, trace TR -BNP >33,000, need to interpret this with renal function in mind Status: Acute Qualifiers: Heart failure chronicity: acute on chronic Heart failure type: diastolic Qualified Code(s): I50.33 - Acute on chronic diastolic (congestive) heart failure (4) Chronic kidney disease, stage III (moderate): -has known CKD stage 3 -baseline Cr is around 3 -continue to monitor renal function, avoid nephrotoxins, renally dose meds -Had renal ultrasound done last month which showed markedly diminished velocities in the renal arteries which may be suggestive of proximal stenosis, unfortunately cannot do CTA due to renal function -Follows up with nephrology at [facility] Status: Chronic (5) Polyarteritis nodosa: -Hold CellCept Status: Chronic Additional A&P Information -Recurrent falls, generalized weakness, physical deconditioning; part of this could be due to acutely worsening anemia and viral infection as noted above. 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 Not be a good candidate for long-term anticoagulation given underlying anemia with need for transfusion of blood products, recurrent falls -Known history of hypertension, on oral antihypertensives -GERD; on PPI and carafate -Hyperlipidemia; hold statin, trend CPK -Skin cancer affecting L ear; currently undergoing treatment -Very hard of hearing; hearing slightly better on the R -Hypokalemia, resolved, replace as needed -Hypomagnesemia, resolved, replace as needed -Noted disorientation per son, head CT negative, reorient as needed -Rhabdomyolysis resolved: CPK normalized -on cardiac diet -GI ppx with PPI -DVT ppx with SCDs, no AC due to bleeding risk -Dispo: came from home, family open to SNF if needed -Code status: FULL code, discussed with bird Joseph -left a VM for bird Joseph Attestations Medical Necessity Statement*: Patient requires hospitalization for continued management of COVID-19 infection, on antiviral treatment and requiring supplemental oxygen support as well as management of acute diastolic CHF exacerbation, on IV diuresis. Time Spent in Patient Care: 16 - 35 minutes (>than 50% of time spent in counselling and/or direct pt care on unit) . Coding Level of Care Code Acute Business Development Intern for [facility] Fwd Exam Comprehensive Diagnoses COVID-19 virus infection U07.1 Anemia D64.9 Anemia type: unspecified type Congestive heart failure I50.33 Heart failure chronicity: acute on chronic Heart failure type: diastolic Chronic kidney disease, stage III (moderate) N18.3 Polyarteritis nodosa M30.0
[2020-06-17] MEDS: sucralfate 1 gm Tablet PO ×2 (09:35→17:37)
[2020-06-17] MEDS: ascorbic acid 500 mg Tablet PO ×2 (09:35→17:36)
[2020-06-17] MEDS: hyDRALAzine 50 mg Tablet PO ×3 (09:35→20:29)
[2020-06-17] MEDS: amlodipine 10 mg Tablet PO (09:35)
[2020-06-17] MEDS: potassium chloride ER 10 mEq Tablet 40 MEQ PO (09:35)
[2020-06-17] MEDS: cyanocobalamin 1,000 mcg Tablet 1000 MCG PO (09:35)
[2020-06-17] MEDS: pantoprazole DR 40 mg Tablet PO ×2 (09:35→17:36)
[2020-06-17] MEDS: cholecalciferol (vitamin D3) 1,000 unit Tablet 1000 UNIT PO (09:35)
[2020-06-17] MEDS: sennosides-docusate Tablet 1 TAB PO ×2 (09:35→17:36)
[2020-06-17] MEDS: zinc gluconate 50 mg Tablet PO (09:35)
[2020-06-17] MEDS: dexamethasone 4 mg/mL INJ 6 MG IVP (16:00)
--- NOTE | 2020-06-17 16:49 | PC.OT ---
OT note: Discussed with PT. Pt just finished with physical therapy and fatigued. Will attempt again tomorrow.
[2020-06-17] MEDS: mirtazapine 30 mg Tablet PO (20:29)
[2020-06-18] VITALS (26 sets, daily range): BP systolic 134–162; BP diastolic 74–104; PULSE 77–98; RESP 0–25; TEMP 36.5–36.8; O2SAT 92–96
[2020-06-18] MEDS: FUROsemide 10 mg/mL SDV 4mL 40 MG IVP (03:44)
[2020-06-18 05:19] LABS: Basophils % 0.1 %; Eosinophils % 0.1 %; Hematocrit 31.6 % (42.0-52.0); Lymphocytes # 0.4 10^3/uL (0.8-4.8); Lymphocytes % 3.4 %; Mean Corpuscular HGB Conc 31.6 g/dL (30.0-36.0); Mean Corpuscular Hemoglobin 31.3 pg (28.0-34.0); Mean Corpuscular Volume 99.1 fL (80-94); Mean Platelet Volume 10.7 fL (7.4-10.4); Monocytes # 0.5 10^3/uL (0.2-0.9); Monocytes % 4.3 %; Neutrophils # 11.29 10^3/uL (1.8-7.7); Neutrophils % 91.3 %; Nucleated Red Blood Cells % 0 %; Platelet Count 267 10^3/cmm (130-400); Red Blood Count 3.19 10^6/uL (4.1-5.3); Red Cell Distribution Width 18.1 % (12.1-15.1); White Blood Count 12.4 10^3/uL (4.0-10.0)
[2020-06-18 05:45] LABS: Alanine Aminotransferase 17 U/L (0-41); Alkaline Phosphatase 78 IU/L (40-130); Anion Gap 16.2 (5-19); Aspartate Amino Transferase 16 U/L (0-40); Blood Urea Nitrogen 54 mg/dL (8-23); C Reactive Protein 22.7 mg/L (0.0-4.9); Calcium 8.2 mg/dL (8.5-10.5); Carbon Dioxide 18 mmol/L (22-29); Chloride 105 mmol/L (98-107); Globulin 2.3 g/dL (1.3-4.6); Glucose 112 mg/dL (65-115); Osmolality Calculated 296 mOsm/kg (285-295); Potassium 4.2 mmol/L (3.5-5.1); Sodium 135 mmol/L (136-145); Total Bilirubin 0.2 mg/dL (0.15-1.2); Total Protein 5.3 g/dL (6.6-8.7)
[2020-06-18 05:57] LABS: Procalcitonin 1.52 ng/mL (0-0.5)
[2020-06-18 06:09] LABS: Ferritin 502 ng/mL (30-400); Lactate Dehydrogenase 283 U/L (135-225)
[2020-06-18 08:09] LABS: D Dimer 4.66 ug/mIFEU (0-0.59)
[2020-06-18] MEDS: zinc gluconate 50 mg Tablet PO (08:42)
[2020-06-18] MEDS: sucralfate 1 gm Tablet PO (08:42)
[2020-06-18] MEDS: ascorbic acid 500 mg Tablet PO (08:42)
[2020-06-18] MEDS: sennosides-docusate Tablet 1 TAB PO (08:42)
[2020-06-18] MEDS: amlodipine 10 mg Tablet PO (08:42)
[2020-06-18] MEDS: potassium chloride ER 10 mEq Tablet 40 MEQ PO (08:42)
[2020-06-18] MEDS: cholecalciferol (vitamin D3) 1,000 unit Tablet 1000 UNIT PO (08:42)
[2020-06-18] MEDS: cyanocobalamin 1,000 mcg Tablet 1000 MCG PO (08:43)
[2020-06-18] MEDS: pantoprazole DR 40 mg Tablet PO (08:43)
[2020-06-18] MEDS: hyDRALAzine 50 mg Tablet PO (08:44)
--- NOTE | 2020-06-18 10:54 | PM.DCS ---
Discharge Providers Date of Admission: 06/15/20 11:29 Date of Discharge: June 18, 2020 Attending Provider at Admission: Kaylin Thomas MD Attending Provider at Discharge: Kaylin Thomas MD Consults: None Primary Care Provider: Maricarmen Meza MD Diagnoses at Discharge Discharge Diagnosis (1) COVID-19 virus infection: Status: Acute Problem details: -COVID-19 positive; noted normal white count, lactic acid; elevated ferritin, LDH, CPK, baseline troponin, CRP. improved inflammatory markers. LFTs normal -isolation precautions -Chest x-ray noted bilateral patchy interstitial opacities part of which could be secondary to pulmonary vascular congestion as well as a viral pneumonitis secondary to COVID-19 infection. Repeat CXR today shows improvement -Stable oxygen requirement of 2 L nasal cannula -Close monitoring of vital signs -Close monitoring of respiratory status, weaned off supplemental oxygen support as tolerated -continue supportive care including vitamin C, zinc, dexamethasone, inhaler treatments as needed, pulmonary toilet, IS -on Remdesevir (day 4); ABG shows hypoxia with PO2 of 68.1, done on room air -Hold CellCept which patient is on due to underlying history of polyarteritis nodosa -blood cx prelim negative, MRSA negative, Legionella, bacterial antigens pending. Sputum culture and gram stain pending receipt of sample (2) Anemia: Status: Acute Problem details: -Has known history of anemia and has had prior GI work-up which per patient was negative for any acute bleeding source -Prior admission last month for severe anemia with hemoglobin as low as 4 and requirement of transfusion of blood products -s/p 1 unit with improvement in Hg up to 10; goal hemoglobin would be around 8 Qualifiers: Anemia type: unspecified type Qualified Code(s): D64.9 - Anemia, unspecified (3) Congestive heart failure: Status: Chronic Problem details: -Acute exacerbation of CHF as evidenced by lower extremity edema, increased shortness of breath part of which is due to viral infection as noted above. Acute exacerbation now resolved -on IV diuresis with close monitoring of renal function; diuresed well -Last echo done in 05/2020 showed ejection fraction of 62% with mild concentric LVH, mild AR, trace MR, trace TR -BNP >33,000, need to interpret this with renal function in mind Qualifiers: Heart failure type: diastolic Heart failure chronicity: acute on chronic Qualified Code(s): I50.33 - Acute on chronic diastolic (congestive) heart failure (4) Chronic kidney disease, stage III (moderate): Status: Chronic Problem details: -has known CKD stage 3 -baseline Cr is around 3 -continue to monitor renal function, avoid nephrotoxins, renally dose meds -Had renal ultrasound done last month which showed markedly diminished velocities in the renal arteries which may be suggestive of proximal stenosis, unfortunately cannot do CTA due to renal function -Follows up with nephrology at [facility] Qualifiers: Chronic kidney disease stage 3 subtype: stage 3b (GFR 30-44) Qualified Code(s): N18.32 - Chronic kidney disease, 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 Not be a good candidate for long-term anticoagulation given underlying anemia with need for transfusion of blood products, recurrent falls -Known history of hypertension, on oral antihypertensives -GERD; on PPI and carafate -Hyperlipidemia; resume statin, CPK normalized -Skin cancer affecting L ear; currently undergoing treatment -Very hard of hearing; hearing slightly better on the R -Hypokalemia, resolved, replace as needed -Hypomagnesemia, resolved, replace as needed -Noted disorientation per son, head CT negative, reorient as needed -Rhabdomyolysis resolved: CPK normalized Reason for Visit Reason for Visit: DISORIENTED, FALLING Hospital Course Hospital Course: Patient was admitted to the viral ICU secondary to having been found positive for COVID-19 infection. He required supplemental oxygen support so was started on treatment with remdesevir, of which he was received a total of 4 days of treatment in addition to IV steroids, vitamin C, zinc, and breathing treatments as needed. He was also found to be quite anemic with an initial hemoglobin of 7, received 1 unit of PRBCs with appropriate increase in hemoglobin and stability thereafter. Most recent hemoglobin is up to 10 which is his baseline. He has had no bleeding during his hospital stay. Hemodynamic status has been stable though he did have some hypertensive episodes for which dose of antihypertensives was increased. He did have at least mild acute diastolic CHF exacerbation and was diuresed with IV Lasix; has diuresed well with a total loss of approximately 2.3 L. Over the past 12-18 hours he has been weaned off supplemental oxygen and even with exertion during his physical therapy session this morning was able to maintain his saturation in the mid 90s. He is not oxygen dependent at baseline and as he is now currently maintaining his saturations appropriately on room air did not require home oxygen evaluation prior to discharge. I have increased his home dose of Lasix to continue to maintain a negative fluid balance. Inflammatory markers have trended down as expected with treatment. Initial imaging reflects viral pneumonitis as well as fluid overload. Repeat imaging showed improvement. Blood culture has been negative, he was unable to provide sputum sample so this was not cultured. Renal function has remained around his baseline of 3-3.3. He is to continue to follow-up with his tsa screener at [facility]. Patient is on CellCept secondary to history of polyarteritis nodosa, in light of acute infection this was held and will need to continue to be held until he has appropriate follow-up with his primary care provider. He did have mild rhabdomyolysis initially, statin has been on hold, CPK has now normalized and he can resume his statin. Patient had had some falls at home prior to admission, has been working well with physical therapy particularly over the past 24 hours. He already has home health including physical therapy which he was receiving 3 times a week. He can continue to do this on discharge per [email or web address] [facility] ([facility]). I have discussed his progress with his family on several occasions including today. I have instructed them on need to continue to monitor patient in terms of symptoms, oxygen levels, temperature. He will need to continue self-isolation precautions and they are to maintain social distancing and frequent handwashing, wearing a mask particularly when in close contact with the patient. He will need to continue to follow-up with his primary care provider, likely telemedicine visits until off self-isolation precautions. I have reviewed symptoms that should prompt seeking medical attention immediately. Of note as patient had acutely worsening anemia anticoagulation which he had been on due to DVT has been on hold. With stability in hemoglobin and no noted bleeding he can resume Eliquis on discharge. I have reviewed this with family as well. Physical Exam Const: COMMON NORMALS: no acute distress, patient oriented x3 and alert GENERAL APPEARANCE: cooperative, comfortable and frail appearing ORIENTATION/CONSCIOUSNESS: Yes awake OTHER: -overall appearance improved HENMT: COMMON NORMALS: normocephalic, atraumatic, hearing grossly normal bilaterally and moist oral mucous membranes HEAD & SCALP: normocephalic and atraumatic GENERAL EAR: hearing grossly impaired Eye: COMMON NORMALS: Equal, round and reactive pupils present, EOMs intact bilaterally and conjunctivae normal CONJUNCTIVA: Yes conjunctivae normal PUPIL: Yes Equal, round and reactive pupils present Neck/C-Spine: COMMON NORMALS: full ROM GENERAL: Yes normal visual inspection and Yes trachea midline Resp: COMMON NORMALS: normal respiratory effort, No retractions and No use of accessory muscles EFFORT & INSPECTION: Yes able to speak in complete sentences, Yes symmetric chest movement and No tachypneic AUSCULTATION: diminished lung sounds OTHER: -On RA, symmetrical air entry bilaterally Cardio: COMMON NORMALS: regular rate, regular rhythm, S1 normal heart sound present, S2 normal heart sound present and No murmurs present (Cardio) RATE: regular rate RHYTHM: regular rhythm HEART SOUNDS: S1 normal heart sound present and S2 normal heart sound present GI: COMMON NORMALS: Normal to inspection, nondistended, normoactive bowel sounds present, Soft to palpation and non-tender PALPATION: Yes Soft to palpation Extremity: COMMON NORMALS: normal to inspection, full ROM, no clubbing, cyanosis or edema and no pedal edema Neuro: COMMON NORMALS: patient oriented x3, moves all extremities, no focal motor deficits and no sensory deficits noted SENSORIUM/ORIENTATION: Yes alert Psych: COMMON NORMALS: mental status grossly normal, Normal thought process present, cooperative, normal affect and speech normal SPEECH: Yes normal speech THOUGHT PROCESS: Normal thought process present Skin: COMMON NORMALS: no rashes or lesions noted, no jaundice, no petechiae and no mottling NARRATIVE SKIN EXAM: -Scattered skin lesions GENERAL SKIN EXAM: no rashes or lesions noted Discharge Data Data Completed and Pending: Completed Studies During Hospitalization Category Date Time Status CT head wo con* [id number] Stat Cat Scan 06/15/20 08:19 Completed XR chest 1V vito ble [id number] Routine Exams 06/17/20 06:00 Completed XR chest 1V vito ble [id number] Stat Exams 06/15/20 08:19 Completed Pending at discharge Category Date Time Status Bacterial Antigen Stat Lab 06/16/20 11:28 Uncollected Blood Culture Sta t Lab 06/15/20 08:50 Results D Dimer AM LABS Lab 06/18/20 04:10 Results Fibrinogen AM LAB S Lab 06/18/20 04:10 Results Legionella Antige n STAT Stat Lab 06/16/20 11:28 Uncollected Leukocyte Reduced RBC Stat Lab 06/15/20 11:45 Results Sputum Culture an d Gram Stain Stat Lab 06/15/20 08:27 Uncollected Type and Screen R outine Lab 06/15/20 11:45 Results Labs from last 24 hours 06/18/20 06/18/20 06/18/20 04:10 04:10 04:10 WBC RBC Hgb Hct MCV MCH MCHC RDW Plt Count MPV Neut % (Auto) Lymph % (Auto) [place] % (Auto) Eos % (Auto) Baso % (Auto) Neut # (Auto) Lymph # (Auto) [place] # (Auto) Eos # (Auto) Baso # (Auto) Nucleated RBC % (a uto) Nucleated RBCs # Fibrinogen Pending D-Dimer 4.66 H Sodium 135 L Potassium 4.2 Chloride 105 Carbon Dioxide 18 L Anion Gap 16.2 BUN 54 H Creatinine 3.3 H GFR Calculation Not Reportable Glucose 112 Calculated Osmolal ity 296 H Calcium 8.2 L Ferritin 502 H Total Bilirubin 0.2 AST 16 ALT 17 Alkaline Phosphata se 78 Lactate Dehydrogen ase 283 H C-Reactive Protein 22.7 H Total Protein 5.3 L Albumin 3.0 L Globulin 2.3 Procalcitonin 1.52 H 06/18/20 04:10 WBC 12.4 H RBC 3.19 L Hgb 10.0 L Hct 31.6 L MCV 99.1 H MCH 31.3 MCHC 31.6 RDW 18.1 H Plt Count 267 MPV 10.7 H Neut % (Auto) 91.3 Lymph % (Auto) 3.4 [place] % (Auto) 4.3 Eos % (Auto) 0.1 Baso % (Auto) 0.1 Neut # (Auto) 11.29 H Lymph # (Auto) 0.4 L [place] # (Auto) 0.5 Eos # (Auto) 0.0 Baso # (Auto) 0.0 Nucleated RBC % (a uto) 0 Nucleated RBCs # 0.0 Fibrinogen D-Dimer Sodium Potassium Chloride Carbon Dioxide Anion Gap BUN Creatinine GFR Calculation Glucose Calculated Osmolal ity Calcium Ferritin Total Bilirubin AST ALT Alkaline Phosphata se Lactate Dehydrogen ase C-Reactive Protein Total Protein Albumin Globulin Procalcitonin Vitals: Last Vital Signs Temp 97.8 F 06/18/20 07:49 Pulse 85 06/18/20 10:00 Resp 13 06/18/20 10:00 BP 140/85 06/18/20 10:00 Pulse Ox 95 06/18/20 10:00 Discharge Plan Discharge Patient Disposition: Home Health Service Condition: Stable Prescriptions: New Vitamin C 500 mg Tablet 500 mg PO BID Qty: 60 RF: 0 zinc gluconate 50 mg Tablet 50 mg PO DAILY Qty: 30 RF: 0 prednisone 10 mg tablet See Rx Instructions .ROUTE .COMPLEX 12 Days Qty: 30 RF: 0 Continued ondansetron HCl [Zofran] 4 mg tablet 4 mg PO BID PRN (Reason: nausea and vomiting) Qty: 30 RF: 0 acitretin 25 mg capsule 25 mg PO DAILY RF: 0 amlodipine 10 mg Tablet 10 mg PO DAILY 30 Days Qty: 30 RF: 0 cholecalciferol (vitamin D3) 25 mcg (1,000 unit) Tablet 1,000 unit PO DAILY 30 Days Qty: 30 RF: 0 pravastatin 20 mg tablet 20 mg PO DAILY Qty: 0 RF: 0 Vitamin B-12 1,000 mcg Tablet 1,000 mcg PO DAILY RF: 0 aspirin 81 mg Tablet,Chewable 81 mg PO DAILY RF: 0 mirtazapine 30 mg tablet 30 mg PO BEDTIME RF: 0 Eliquis DVT-PE Treat 30D Start 5 mg (74 tabs) tablets,dose pack 5 mg PO BID RF: 0 Carafate 1 gram tablet 1 gm PO BID Qty: 60 RF: 3 pantoprazole 40 mg Tablet,Delayed Release (Dr/Ec) 40 mg PO BID 30 Days Qty: 60 RF: 0 Changed hydralazine 25 mg Tablet 50 mg PO TID 30 Days Qty: 90 RF: 0 potassium chloride 10 mEq tablet extended release 30 meq PO DAILY 30 Days Qty: 90 RF: 0 furosemide 20 mg tablet 40 mg PO QAM Qty: 60 RF: 0 Held mycophenolate mofetil [CellCept] 500 mg tablet 1,000 mg PO BID RF: 0 Hold Instructions: Please hold medication until follow up with primary care provider Discontinued nifedipine [Procardia XL] 30 mg tablet extended release 24hr 30 mg PO BID RF: 0 Discharge Orders: Discharge Order (Routine); Ordered 06/18/20 Ordered By: Kaylin Thomas Referrals: Meliza Ludwig APN [Referring] - 4-7 days (Please request telehealth visit due to COVID-19 infection. ) Discharge Diet: Cardiac Discharge Activity: Increase activity as tolerated Activity Restrictions/Additional Instructions: -Please note that you will need to continue with self-isolation precautions including frequent handwashing, social distancing, wearing a mask. He will need to monitor yourself at home for symptoms including persistent cough, shortness of breath, oxygen levels, temperature checks -He will need to continue self-isolation precautions for at least 10 to 14 days -Please seek medical attention immediately should you notice persistently low oxygen levels, fever, inability to tolerate oral intake. -Please seek medical attention immediately should you notice any blood in your stool Discharge Attestations Time Spent in Discharge Care*: greater than 30 min Specific Discharge Activities: Specific discharge activities: educating patient, educating and/or supporting family/caregiver (spoke with daughter), discussing with pcp/other providers (confirmed that PCP is Meliza Ludwig), discussing with special education case manager/social workers/dc planners, documenting/other paperwork and evaluating patient/reviewing data Status at Discharge: Cognitive status at discharge: cognitively intact, Behavioral status at discharge: cooperative, Functional status at discharge: uses cane/walker Overall status at discharge: patient is progressing back to baseline Quality Metrics Clinical Quality Measures During this hospital stay, did patient experience: None Coding Level of Care Code Acute Audit Manager for g Fwd Diagnoses COVID-19 virus infection U07.1 Anemia D64.9 Anemia type: unspecified type Congestive heart failure I50.33 Heart failure type: diastolic Heart failure chronicity: acute on chronic Chronic kidney disease, stage III (moderate) N18.32 Chronic kidney disease stage 3 subtype: stage 3b (GFR 30-44) Polyarteritis nodosa M30.0
[2020-06-18 10:56] LABS: Fibrinogen 366 mg/dL (174-498)
--- NOTE | 2020-06-18 11:06 | PC.SOCIAL ---
IMM Update Pg.2 of IMM updated and reviewed with patient's daughter over the phone, verbalized understanding.
== END 2020-06-18 13:40 | disposition home health service (06) | DRG 177 ==
LOC: ER 08:37 → ICU 12:01
PROVIDERS: Family Medicine; Admitting Provider Family Medicine; PCP Family Medicine; Visit Provider Family Medicine
DX: U07.1 COVID-19 (principal); J12.89 Other viral pneumonia; I50.33 Acute on chronic diastolic (congestive) heart failure; I13.0 Hypertensive heart and chronic kidney disease with heart failure and stage 1 through stage 4 chronic kidney disease, or unspecified chronic kidney disease; M30.0 Polyarteritis nodosa; R09.02 Hypoxemia; R29.6 Repeated falls; D63.1 Anemia in chronic kidney disease; Z86.718 Personal history of other venous thrombosis and embolism; Z79.01 Long term (current) use of anticoagulants; N18.30 Chronic kidney disease, stage 3 unspecified; E78.5 Hyperlipidemia, unspecified; K21.9 Gastro-esophageal reflux disease without esophagitis; M10.9 Gout, unspecified; E20.0 Idiopathic hypoparathyroidism; D89.9 Disorder involving the immune mechanism, unspecified; E55.9 Vitamin D deficiency, unspecified; Z79.899 Other long term (current) drug therapy; E87.6 Hypokalemia; Z79.82 Long term (current) use of aspirin
CPT/HCPCS: 12345; 36415; 36430; 36600; 70450; 71045; 80051; 80053; 81001; 82274; 82550; 82728; 82810; 83605; 83615; 83690; 83735; 83880; 83986; 84145; 84484; 85014; 85018; 85025; 85378; 85384; 85610; 86140; 86850; 86900; 86920; 87040; 87426; 87641; 87804; 93005; 96375; 97110; 97116; 97162; 97166; 99283; J0360; J1100; J1940; J3475; J7050; P9016

== ENCOUNTER 2020-06-20 10:55 | Inpatient (IN) | payer MEDICARE, SELFPAY ==
[2020-06-20] VITALS (44 sets, daily range): BP systolic 136–160; BP diastolic 77–103; PULSE 70–147; RESP 12–22; TEMP 36.7–36.8; O2SAT 93–98; BMI 21.7
--- NOTE | 2020-06-20 11:16 | USR_ITS ---
PROCEDURE INFORMATION: Exam: US Duplex Right Lower Extremity Veins, Limited Exam date and time: 06/20/2020 11:19 AM Age: 80 years old Clinical indication: Swelling (edema) of limb; Lower extremity, right; Additional info: Swelling, h/o dvt TECHNIQUE: Imaging protocol: Real-time Duplex ultrasound of the Right Lower Extremity with 2-D wilson scale, color Doppler flow and spectral waveform analysis with image documentation. Limited exam was focused on the right lower extremity veins. COMPARISON: [place] [id number] 05/16/2020 7:20 PM FINDINGS: Right deep veins: There are a few linear echogenicities in the right common femoral vein which may be related to old DVT. There is however no evidence of thrombus occlusion or acute DVT in the right common femoral, femoral and popliteal veins. There is limited visualization of the veins in the calf most likely related to the patient's old DVT and probably chronic changes. There is no evidence of acute DVT in the right calf. Right superficial veins: Unremarkable. Saphenofemoral junction is patent without thrombus. Soft tissues: Unremarkable. 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
--- NOTE | 2020-06-20 11:16 | USR_ITS ---
PROCEDURE INFORMATION: Exam: US Duplex Left Upper Extremity Veins, Limited Exam date and time: 06/20/2020 11:19 AM Age: 80 years old Clinical indication: Swelling (edema) of limb; Upper extremity, left; Additional info: Swelling, h/o dvt TECHNIQUE: Imaging protocol: Real-time Duplex ultrasound of the Left Upper Extremity with 2-D wilson scale, color Doppler flow and spectral waveform analysis with image documentation. Limited exam focused on the left upper extremity veins. COMPARISON: No relevant prior studies available. FINDINGS: Left deep veins: Unremarkable. Axillary and brachial veins are patent throughout without thrombus. Normal Doppler waveforms. Normal compressibility and/or augmentation response. Visualized internal jugular and subclavian veins are patent. Left superficial veins: Unremarkable. Visualized cephalic and basilic veins are patent without thrombus. Soft tissues: There is diffuse subcutaneous edema involving the left upper extremity.. US/[place] [id number] IMPRESSION: 1. No evidence of deep venous thrombosis. 2. Diffuse upper extremity edema.
--- NOTE | 2020-06-20 11:16 | XRR_ITS ---
PROCEDURE INFORMATION: Exam: XR Chest, 1 View Exam date and time: 06/20/2020 11:19 AM Age: 80 years old Clinical indication: Shortness of breath; Additional info: Covid TECHNIQUE: Imaging protocol: XR of the chest Views: 1 view. COMPARISON: CR XR chest 1V portable [id number] 06/17/2020 6:56 AM FINDINGS: Lungs: There is bibasilar pulmonary consolidation. This has worsened on the right side when compared to the previous radiograph from 06/17/2020. The lung apices remain clear. Pleural space: Small pleural effusions are present which are similar to old study. No pneumothorax is seen. Heart/Mediastinum: The cardiac silhouette is enlarged but unchanged. Bones/joints: Unremarkable. XR/XR chest 1V portable [id number] IMPRESSION: Prominent bibasilar pulmonary consolidation with small effusions. This has worsened on the right side since previous study.
--- NOTE | 2020-06-20 11:44 | W.ED.EXTPRO ---
HPI - Extremity Problem General: Chief complaint: Extremity Problem,Nontraumatic Stated complaint: covid +, fever, left arm edema Time Seen by Provider: 06/20/20 11:16 History of Present Illness: HPI Narrative: This patient is an 80-year-old male who presents by ambulance. He was admitted here to our COVID unit on June 15 and discharged on June 18. He has a history of polyarteritis nodosa and was on CellCept prior to admission. During admission he was on oxygen and received Decadron, remdesivir. 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 He had been on Eliquis but was taken off of anticoagulation while in the hospital due to significant anemia. He received blood transfusions. He was started back on the Eliquis at discharge. He returns today with complaints of severe weakness and pain and swelling in his left arm. The left arm is also warm and red. He has had an elevated overnight and it still quite swollen. He also has swelling in his right leg consistent with a history of prior DVT. He says he is not feeling terribly short of breath today. EMS reports that his room air saturation was around 92%. MD Complaint: extremity pain and extremity swelling Onset (ago): day(s) (1) Pain Consistency: constant Location: left (Left arm) and right (Right leg) Quality: aching Radiation: none Relieving factors: nothing Exacerbating factors: nothing Associated symptoms: Reports fever(s) (101 today); Deny chest pain or rash Review of Systems General: Reports: 10 or more systems reviewed and unremarkable except in HPI and below Const: Reports: fever(s) (101 today) Eyes: Denies: change in vision ENMT: Denies: odynophagia Card: Reports: swelling of feet/ankles, dyspnea on exertion and leg pain with exertion; Denies: chest pain Resp: Denies: dyspnea, productive cough or non-productive cough GI: Denies: abdominal pain, nausea or vomiting : Denies: flank pain Musc: Denies: neck pain or back pain Skin/Breast: Denies: rash Neuro: Reports: weakness in extremities; Denies: headache(s) or numbness in extremities Alberto/Lymph: Denies: easy bruising or easy bleeding PFS ED PFSH: Medical History Anemia -Has known history of anemia and has had prior GI work-up which per patient was negative for any acute bleeding source -Prior admission last month for severe anemia with hemoglobin as low as 4 and requirement of transfusion of blood products -s/p 1 unit with improvement in Hg up to 10; goal hemoglobin would be around 8 Chronic kidney disease, stage III (moderate) -has known CKD stage 3 -baseline Cr is around 3 -continue to monitor renal function, avoid nephrotoxins, renally dose meds -Had renal ultrasound done last month which showed markedly diminished velocities in the renal arteries which may be suggestive of proximal stenosis, unfortunately cannot do CTA due to renal function -Follows up with nephrology at [facility] CRI (chronic renal insufficiency) Diarrhea Dyslipidemia GERD (gastroesophageal reflux disease) Gout History of DVT (deep vein thrombosis) Hypertension Idiopathic parathyroidism Immunosuppression Inguinal hernia left 11/30/2016 Polyarteritis nodosa -Hold CellCept Skin cancer Vitamin D deficiency Surgical History H/O endoscopy History of hernia repair History of hip surgery Status post biopsy of kidney Family History Other Cancer Social History Smoking and tobacco status: never smoked Alcohol intake: never Marital status: Physical Exam Const: COMMON NORMALS: no acute distress, patient oriented x3, no limitations and alert GENERAL APPEARANCE: cooperative HENMT: HEAD & SCALP: normal to inspection FACE & SINUS: normal facial exam Eye: GENERAL EYE: appearance normal, both eyes and all related structures Neck/C-Spine: COMMON NORMALS: supple, no meningeal signs and no JVD Chest: COMMONS NORMALS: normal inspection of the chest Resp: COMMON NORMALS: normal respiratory effort, No use of accessory muscles and clear to auscultation bilaterally AUSCULTATION: clear to auscultation bilaterally Cardio: COMMON NORMALS: no JVD, regular rate, regular rhythm and No murmurs present (Cardio) RATE: regular rate RHYTHM: regular rhythm GI: COMMON NORMALS: Normal to inspection, nondistended, normoactive bowel sounds present, Soft to palpation and non-tender INSPECTION: Yes normal to inspection AUSCULTATION: Yes normoactive bowel sounds PALPATION: Yes Soft to palpation Back/Pelvis: COMMON NORMALS: thoracic and lumbar spine normal to inspection Extremity: NARRATIVE EXTREMITY EXAM: Left upper extremity swollen from the elbow down. It is hot and red. Right lower extremity is tender, mildly red and warm, swollen from the mid thigh down. Pulses are intact. Neuro: COMMON NORMALS: patient oriented x3, moves all extremities, no focal motor deficits and no sensory deficits noted SENSORIUM/ORIENTATION: Yes alert MENINGEAL SIGNS: Yes no meningeal signs Psych: COMMON NORMALS: mental status grossly normal, cooperative and normal affect Skin: COMMON NORMALS: no rashes or lesions noted and turgor normal GENERAL SKIN EXAM: no rashes or lesions noted and turgor normal Course ED course: Mr. Alegre was treated and released from the viral unit here. Since being released he is started running a fever again and is here today with pain and swelling in his left arm and right leg. He has a history of DVTs and was temporarily off his Eliquis due to anemia. Ultrasound today shows no new DVTs in either extremity. The arm is definitely hot and red and likely has cellulitis. On chest x-ray he also has a new fairly discrete infiltrate in the right base that is likely a bacterial pneumonia superimposed on his COVID. Given these findings and his severe weakness we will readmit him to the hospital. He has been given antibiotics for bacterial pneumonia as well as cellulitis. Vital Signs: Vital signs: Vital Signs Temperature 98.1 F 06/20/20 11:16 Pulse Rate 75 06/20/20 20:10 Respiratory Rate 14 06/20/20 20:10 Blood Pressure 150/80 06/20/20 17:50 Pulse Oximetry 97 06/20/20 20:10 MDM - Extremity (Nontraumatic) Lab Data: Labs: Lab Results 06/20/20 06/20/20 06/20/20 Range/Units 13:10 13:10 13:10 WBC 18.3 H (4.0-10.0) 10^3/ uL RBC 3.15 L (4.1-5.3) 10^6/u L Hgb 9.4 L (11.7-16.6) g/dL Hct 30.2 L (42.0-52.0) % MCV 95.9 H (80-94) fL MCH 29.8 (28.0-34.0) pg MCHC 31.1 (30.0-36.0) g/dL RDW 18.0 H (12.1-15.1) % Plt Count 265 (130-400) 10^3/c mm MPV 10.7 H (7.4-10.4) fL Neut % (Auto) 93.9 % Lymph % (Auto) 2.9 % [place] % (Auto) 2.1 % Eos % (Auto) 0.0 % Baso % (Auto) 0.2 % Neut # (Auto) 17.19 H (1.8-7.7) 10^3/u L Lymph # (Auto) 0.5 L (0.8-4.8) 10^3/u L [place] # (Auto) 0.4 (0.2-0.9) 10^3/u L Eos # (Auto) 0.0 (0.0-0.8) 10^3/u L Baso # (Auto) 0.0 (0.0-0.1) 10^3/u L Nucleated RBC % (a uto) 0 % Nucleated RBCs # 0.0 /100WBC PT 17.40 H (12.1-14.9) SECO NDS INR 1.38 H (0.8-1.2) Fibrinogen 413 (174-498) mg/dL D-Dimer 5.25 H (0-0.59) ug/mIFE U Sodium 134 L (136-145) mmol/L Potassium 4.2 (3.5-5.1) mmol/L Chloride 104 (98-107) mmol/L Carbon Dioxide 17 L (22-29) mmol/L Anion Gap 17.2 (5-19) BUN 59 H (8-23) mg/dL Creatinine 3.3 H (0.7-1.2) mg/dL GFR Calculation Not Reportable Glucose 102 (65-115) mg/dL Calculated Osmolal ity 295 (285-295) mOsm/k g Lactic Acid (0.5-2.2) mmol/L Calcium 8.7 (8.5-10.5) mg/dL Magnesium 1.8 (1.7-2.3) mg/dL Ferritin 582 H (30-400) ng/mL Total Bilirubin 0.3 (0.15-1.2) mg/dL AST 20 (0-40) U/L ALT 24 (0-41) U/L Alkaline Phosphata se 84 (40-130) IU/L Lactate Dehydrogen ase 321 H (135-225) U/L C-Reactive Protein 26.8 H (0.0-4.9) mg/L NT-Pro-B Natriuret Pep 77118 H (0-450) pg/mL Total Protein 5.8 L (6.6-8.7) g/dL Albumin 3.3 L (3.5-5.2) g/dL Globulin 2.5 (1.3-4.6) g/dL Procalcitonin 1.04 H (0-0.5) ng/mL 06/20/20 Range/Units 13:10 WBC (4.0-10.0) 10^3/ uL RBC (4.1-5.3) 10^6/u L Hgb (11.7-16.6) g/dL Hct (42.0-52.0) % MCV (80-94) fL MCH (28.0-34.0) pg MCHC (30.0-36.0) g/dL RDW (12.1-15.1) % Plt Count (130-400) 10^3/c mm MPV (7.4-10.4) fL Neut % (Auto) % Lymph % (Auto) % [place] % (Auto) % Eos % (Auto) % Baso % (Auto) % Neut # (Auto) (1.8-7.7) 10^3/u L Lymph # (Auto) (0.8-4.8) 10^3/u L [place] # (Auto) (0.2-0.9) 10^3/u L Eos # (Auto) (0.0-0.8) 10^3/u L Baso # (Auto) (0.0-0.1) 10^3/u L Nucleated RBC % (a uto) % Nucleated RBCs # /100WBC PT (12.1-14.9) SECO NDS INR (0.8-1.2) Fibrinogen (174-498) mg/dL D-Dimer (0-0.59) ug/mIFE U Sodium (136-145) mmol/L Potassium (3.5-5.1) mmol/L Chloride (98-107) mmol/L Carbon Dioxide (22-29) mmol/L Anion Gap (5-19) BUN (8-23) mg/dL Creatinine (0.7-1.2) mg/dL GFR Calculation Glucose (65-115) mg/dL Calculated Osmolal ity (285-295) mOsm/k g Lactic Acid 1.1 (0.5-2.2) mmol/L Calcium (8.5-10.5) mg/dL Magnesium (1.7-2.3) mg/dL Ferritin (30-400) ng/mL Total Bilirubin (0.15-1.2) mg/dL AST (0-40) U/L ALT (0-41) U/L Alkaline Phosphata se (40-130) IU/L Lactate Dehydrogen ase (135-225) U/L C-Reactive Protein (0.0-4.9) mg/L NT-Pro-B Natriuret Pep (0-450) pg/mL Total Protein (6.6-8.7) g/dL Albumin (3.5-5.2) g/dL Globulin (1.3-4.6) g/dL Procalcitonin (0-0.5) ng/mL Discharge Plan Discharge Patient Disposition: Admitted As Inpatient Admit Provider: Kaylin Thomas Clinical Impression: COVID-19 virus infection, Bacterial pneumonia Chronic kidney disease, stage III (moderate) Qualifiers: Chronic kidney disease stage 3 subtype: unspecified whether 3a or 3b Qualified Code(s): N18.30 - Chronic kidney disease, stage 3 unspecified Congestive heart failure Qualifiers: Heart failure type: unspecified Heart failure chronicity: unspecified Qualified Code(s): I50.9 - Heart failure, unspecified Cellulitis Qualifiers: Site of cellulitis: extremity Site of cellulitis of extremity: upper extremity Laterality: left Qualified Code(s): L03.114 - Cellulitis of left upper limb Condition: Stable Referrals: Maricarmen Meza MD [Primary Care Provider] - Discharge Date/Time: 06/20/20 17:33 Coding Level of Care Code ED [employer] for [facility] Fwd Exam Comprehensive
--- NOTE | 2020-06-20 11:55 | PC.NURSE ---
pt refuses IV. ED provider notified.
[2020-06-20] MEDS: piperacillin-tazobactam 2.25 GM in sodium chloride 0.9% (plus) 50 ML IV (13:02)
[2020-06-20 13:24] LABS: Basophils % 0.2 %; Hematocrit 30.2 % (42.0-52.0); Hemoglobin 9.4 g/dL (11.7-16.6); Lymphocytes # 0.5 10^3/uL (0.8-4.8); Lymphocytes % 2.9 %; Mean Corpuscular HGB Conc 31.1 g/dL (30.0-36.0); Mean Corpuscular Hemoglobin 29.8 pg (28.0-34.0); Mean Corpuscular Volume 95.9 fL (80-94); Mean Platelet Volume 10.7 fL (7.4-10.4); Monocytes # 0.4 10^3/uL (0.2-0.9); Monocytes % 2.1 %; Neutrophils # 17.19 10^3/uL (1.8-7.7); Neutrophils % 93.9 %; Nucleated Red Blood Cells % 0 %; Platelet Count 265 10^3/cmm (130-400); Red Blood Count 3.15 10^6/uL (4.1-5.3); White Blood Count 18.3 10^3/uL (4.0-10.0)
[2020-06-20 13:37] LABS: INR 1.38 (0.8-1.2)
[2020-06-20 13:38] LABS: Fibrinogen 413 mg/dL (174-498)
[2020-06-20 13:47] LABS: D Dimer 5.25 ug/mIFEU (0-0.59)
[2020-06-20 13:51] LABS: NT Pro B Type Natriuretic Pept 25222 pg/mL (0-450); Procalcitonin 1.04 ng/mL (0-0.5)
[2020-06-20] MEDS: vancomycin 1,000 MG in sodium chloride 0.9% 250 ML 250 MG IV (13:56)
[2020-06-20 14:02] LABS: Alanine Aminotransferase 24 U/L (0-41); Albumin Level 3.3 g/dL (3.5-5.2); Alkaline Phosphatase 84 IU/L (40-130); Anion Gap 17.2 (5-19); Aspartate Amino Transferase 20 U/L (0-40); Blood Urea Nitrogen 59 mg/dL (8-23); C Reactive Protein 26.8 mg/L (0.0-4.9); Calcium 8.7 mg/dL (8.5-10.5); Carbon Dioxide 17 mmol/L (22-29); Chloride 104 mmol/L (98-107); Ferritin 582 ng/mL (30-400); Globulin 2.5 g/dL (1.3-4.6); Glucose 102 mg/dL (65-115); Lactate Dehydrogenase 321 U/L (135-225); Magnesium 1.8 mg/dL (1.7-2.3); Osmolality Calculated 295 mOsm/kg (285-295); Potassium 4.2 mmol/L (3.5-5.1); Sodium 134 mmol/L (136-145); Total Bilirubin 0.3 mg/dL (0.15-1.2); Total Protein 5.8 g/dL (6.6-8.7)
[2020-06-20 14:03] LABS: Creatinine Clr Calc Pharmacy 18.7702
[2020-06-20 14:39] LABS: Lactic Sepsis W/Reflex 1.1 mmol/L (0.5-2.2)
--- NOTE | 2020-06-20 18:10 | PM.HP ---
Providers/Chief Complaint Admitting Physician: Kaylin Thomas MD Primary Care Provider: Maricarmen Meza MD Chief Complaint: COUGH/FEVER/LEFT ARM SWELLING History of Present Illness Good Alegre is a 80 year old male with PMHx noted below returns to the hospital following discharge this past week after having been found to be COVID-19 positive. History is obtained from daughter Melissa as patient is unable to provide his own history due to underlying cognitive impairment. During his hospital stay he was treated with a 5-day course of IV steroids and remdesevir with noted improvement particularly in terms of oxygen requirement, inflammatory markers and symptomatic improvement. Patient was noted to be quite physically deconditioned even during that admission and has been working with physical therapy. He had significant anemia and required transfusion of 1 unit of PRBCs with subsequent improvement and stability in his hemoglobin thereafter. He did require some diuresis with a good response as well secondary to acutely decompensated diastolic CHF. Unfortunately on his return home he did well for fairly short amount of time then started to develop fever which got as high as 102F, had persistent cough, chills, and worsening weakness to the point where he required assistance with all activity. He was also noted to have significant swelling of the left arm and redness. Lab work indicates leukocytosis with a white count of 18.3, noted neutrophilic predominance, hemoglobin of 9.4, BUN of 59, creatinine of 3.3, elevated inflammatory markers, BNP greater than 25,000, pro-calcitonin of 1.04. 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 He is already on anticoagulation with Eliquis which had been held for the majority of his hospital stay previously due to noted worsening anemia. In light of what is likely superimposed bacterial infection, worsening physical deconditioning, left upper extremity cellulitis, he will require admission for IV antibiotic treatment. Family expresses desire to pursue SNF placement which case management is already working on. Review of Systems General: Reports: ROS unobtainable due to mental status (obtained from daughter Melissa) Const: Reports: fever(s) (Tmax-102F), chills and fatigue; Denies: change in appetite Resp: Reports: dyspnea and productive cough Musc: Reports: extremity pain (LUE) and extremity swelling (LUE, RLE) Skin/Breast: Reports: erythema Neuro: Reports: lack of coordination and difficulty walking Medications/Allergies Home Medications Medication Instructions Recorded Confirmed Last Taken Type mycophenolate mofetil 500 mg tablet 1,000 mg PO BID 09/12/19 06/15/20 Unknown History ondansetron HCl 4 mg tablet 4 mg PO BID PRN #30 tab 10/18/19 06/15/20 Unknown Rx acitretin 25 mg PO DAILY 05/17/20 06/15/20 06/14/20 History pravastatin 20 mg PO DAILY #0 tab 05/20/20 06/15/20 06/14/20 Rx Eliquis DVT-PE Treat 30D Start 5 mg PO BID 06/15/20 06/15/20 06/14/20 History Vitamin B-12 1,000 mcg PO DAILY 06/15/20 06/15/20 06/14/20 History aspirin 81 mg PO DAILY 06/15/20 06/15/20 06/14/20 History mirtazapine 30 mg PO BEDTIME 06/15/20 06/15/20 06/14/20 History ascorbic acid (vitamin C) [Vitamin 500 mg PO BID #60 tab 06/18/20 Unknown Rx C] furosemide 40 mg PO QAM #60 tab 06/18/20 06/15/20 06/13/20 Rx potassium chloride 30 meq PO DAILY 30 Days #90 tab 06/18/20 Unknown Rx prednisone See Rx Instructions .ROUTE 06/18/20 Unknown Rx .COMPLEX 12 Days #30 tab sucralfate [Carafate] 1 gm PO BID #60 tab 06/18/20 Unknown Rx zinc gluconate 50 mg PO DAILY #30 tab 06/18/20 Unknown Rx Allergies Allergy/AdvReac Type Severity Reaction Status Date / Time No Known Allergies Allergy Verified 05/17/20 02:56 PFSH Acute PFSH: Medical History Anemia -Has known history of anemia and has had prior GI work-up which per patient was negative for any acute bleeding source -Prior admission last month for severe anemia with hemoglobin as low as 4 and requirement of transfusion of blood products -s/p 1 unit with improvement in Hg up to 10; goal hemoglobin would be around 8 Chronic kidney disease, stage III (moderate) -has known CKD stage 3 -baseline Cr is around 3 -continue to monitor renal function, avoid nephrotoxins, renally dose meds -Had renal ultrasound done last month which showed markedly diminished velocities in the renal arteries which may be suggestive of proximal stenosis, unfortunately cannot do CTA due to renal function -Follows up with nephrology at [facility] CRI (chronic renal insufficiency) Diarrhea Dyslipidemia GERD (gastroesophageal reflux disease) Gout History of DVT (deep vein thrombosis) Hypertension Idiopathic parathyroidism Immunosuppression Inguinal hernia left 11/30/2016 Polyarteritis nodosa -Hold CellCept Skin cancer Vitamin D deficiency Surgical History H/O endoscopy History of hernia repair History of hip surgery Status post biopsy of kidney Family History Other Cancer Social History Smoking and tobacco status: never smoked Alcohol intake: never Marital status: Vitals/I&O/Wt Last Vital Signs Temp 98.1 F 06/20/20 11:16 Pulse 147 H 06/20/20 17:50 Resp 18 06/20/20 17:50 BP 150/80 06/20/20 17:50 Pulse Ox 94 06/20/20 17:50 06/20/20 06/20/20 06/20/20 06:59 14:59 22:59 Intake Total 50 / 50 250 / 300 Balance 50 / 50 250 / 300 Weight last 48 hrs Weight 72.575 kg Physical Exam Const: COMMON NORMALS: no acute distress and patient oriented x3 GENERAL APPEARANCE: cooperative and comfortable ORIENTATION/CONSCIOUSNESS: Yes awake HENMT: COMMON NORMALS: normocephalic, atraumatic, hearing grossly normal bilaterally and moist oral mucous membranes HEAD & SCALP: normocephalic and atraumatic Eye: COMMON NORMALS: Equal, round and reactive pupils present, EOMs intact bilaterally and conjunctivae normal CONJUNCTIVA: Yes conjunctivae normal PUPIL: Yes Equal, round and reactive pupils present Neck/C-Spine: COMMON NORMALS: full ROM GENERAL: Yes normal visual inspection and Yes trachea midline Resp: COMMON NORMALS: normal respiratory effort, No retractions, No use of accessory muscles and clear to auscultation bilaterally EFFORT & INSPECTION: Yes able to speak in complete sentences, Yes symmetric chest movement and No tachypneic AUSCULTATION: clear to auscultation bilaterally Cardio: COMMON NORMALS: regular rate, regular rhythm, S1 normal heart sound present, S2 normal heart sound present and No murmurs present (Cardio) RATE: regular rate RHYTHM: regular rhythm HEART SOUNDS: S1 normal heart sound present and S2 normal heart sound present GI: COMMON NORMALS: Normal to inspection, nondistended, normoactive bowel sounds present, Soft to palpation and non-tender PALPATION: Yes Soft to palpation Extremity: COMMON NORMALS: normal to inspection, full ROM and no clubbing, cyanosis or edema; negative for no pedal edema Neuro: COMMON NORMALS: patient oriented x3, moves all extremities, no focal motor deficits, no sensory deficits noted and gait normal Psych: COMMON NORMALS: mental status grossly normal, Normal thought process present, cooperative, normal affect and speech normal SPEECH: Yes normal speech THOUGHT PROCESS: Normal thought process present Skin: COMMON NORMALS: no rashes or lesions noted, no jaundice, no petechiae and no mottling GENERAL SKIN EXAM: no rashes or lesions noted Data : 06/20/20 13:10 06/20/20 13:10 Micro: Microbiology 06/20/20 12:50 Blood Culture - Preliminary Blood SPECIMEN COLLECTED 06/20/20 13:10 Blood Culture - Preliminary Blood SPECIMEN COLLECTED A&P Assessment and plan (1) Bacterial pneumonia: -Noted evidence of pneumonia on imaging -Had just been recovering from COVID 19 infection for which he was hospitalized and received a 5-day course of Remdesevir, IV steroids with some improvement noted on follow-up imaging and trending of inflammatory markers -treat with broad spectrum IV antibiotics -inhaler treatments, antitussives PRN -close monitoring of respiratory status -supplemental oxygen as needed -noted leukocytosis with neutrophilic predominance; trend WBC; [id number] -pulmonary toilet, IS -f/u blood cx -monitor vital signs -Hold CellCept which patient is on due to underlying history of polyarteritis nodosa Status: Acute (2) Cellulitis: -noted significant edema of LUE; prior peripheral IV site -LUE elevation, warm compresses -venous duplex with noted diffuse edema, no DVT -superficial erythema, tenderness; on antibiotics -f/u blood cx Status: Acute Qualifiers: Laterality: left Site of cellulitis: extremity Site of cellulitis of extremity: upper extremity Qualified Code(s): L03.114 - Cellulitis of left upper limb (3) Congestive heart failure: -required diuresis previously due to noted diastolic CHF exacerbation; low threshold for developing fluid overload -resume oral diuretics -Last echo done in 05/2020 showed ejection fraction of 62% with mild concentric LVH, mild AR, trace MR, trace TR -BNP >25,000, has underlying renal impairment Status: Chronic Qualifiers: Heart failure type: unspecified Heart failure chronicity: unspecified Qualified Code(s): I50.9 - Heart failure, unspecified (4) COVID-19 virus infection: -COVID-19 positive and treated with 5-day course of remdesevir and IV steroids with noted clinical improvement, decreasing oxygen requirement, and improving inflammatory markers -isolation precautions -Close monitoring of respiratory status, supplemental oxygen support as tolerated -continue supportive care including vitamin C, zinc, oral steroid taper, inhaler treatments as needed, pulmonary toilet, IS -blood cx-negative, MRSA negative, Legionella, bacterial antigens pending. Status: Acute (5) Anemia: -Has known history of anemia and has had prior GI work-up which per patient was negative for any acute bleeding source -Prior admission last month for severe anemia with hemoglobin as low as 4 and requirement of transfusion of blood products -s/p 1 unit with improvement in Hg up to 10 (10/5) -monitor H/H closely particularly as on AC Status: Chronic Qualifiers: Anemia type: unspecified type Qualified Code(s): D64.9 - Anemia, unspecified (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 (7) Chronic kidney disease, stage III (moderate): -has known CKD stage 3 -baseline Cr is around 3 -continue to monitor renal function, avoid nephrotoxins, renally dose meds -Had renal ultrasound done last month which showed markedly diminished velocities in the renal arteries which may be suggestive of proximal stenosis, unfortunately cannot do CTA due to renal function -Follows up with nephrology at [facility] Status: Chronic Qualifiers: Chronic kidney disease stage 3 subtype: unspecified whether 3a or 3b Qualified Code(s): N18.30 - Chronic kidney disease, stage 3 unspecified Additional A&P Information -Recurrent falls, generalized weakness, physical deconditioning, previously had rhabdomyolysis which resolved; PT evaluations requested, strict fall precautions -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 May not be a good candidate for long-term anticoagulation given underlying anemia with need for transfusion of blood products, recurrent falls -Known history of hypertension, on oral antihypertensives -GERD; on PPI and carafate -Hyperlipidemia; resume statin -Skin cancer affecting L ear; currently undergoing treatment -Very hard of hearing; hearing slightly better on the R -GI ppx with PPI -DVT ppx not needed as on Eliquis -Dispo: family wishes to pursue SNF placement; case management already working on this -Code status: FULL code -Admit to [facility] Attestations Medical Necessity Statement*: Good Alegre's hospital stay will require greater than 2 midnights for management of pneumonia, likely bacterial and requiring broad spectrum IV antibiotics, LUE cellulitis and worsening generalized weakness; while recovering from COVID-19 infection. Time Spent in Patient Care: Greater than 35 minutes (>than 50% of time spent in counselling and/or direct pt care on unit). 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
[2020-06-20] MEDS: levofloxacin-dextrose 5 % 750 MG/150 ML PREMIX 100 MG IV (19:33)
[2020-06-20] MEDS: albuterol 8 gm MDI 1 PUFF INHALATION (20:10)
[2020-06-20] MEDS: predniSONE 10 mg Tablet 30 MG PO (22:05)
[2020-06-20] MEDS: mirtazapine 30 mg Tablet PO (22:06)
[2020-06-21] VITALS (157 sets, daily range): BP systolic 129–163; BP diastolic 75–94; PULSE 65–123; RESP 7–29; TEMP 36.5–36.7; O2SAT 89–100
[2020-06-21] MEDS: albuterol 8 gm MDI 1 PUFF INHALATION ×4 (00:45→20:55)
[2020-06-21] MEDS: piperacillin-tazobactam 3.375 GM in sodium chloride 0.9% (plus) 50 ML IV ×2 (01:36→13:29)
[2020-06-21 06:26] LABS: Basophils % 0.1 %; Hematocrit 28.8 % (42.0-52.0); Hemoglobin 9.1 g/dL (11.7-16.6); Lymphocytes # 0.4 10^3/uL (0.8-4.8); Lymphocytes % 2.4 %; Mean Corpuscular HGB Conc 31.6 g/dL (30.0-36.0); Mean Corpuscular Hemoglobin 30.6 pg (28.0-34.0); Mean Platelet Volume 11.4 fL (7.4-10.4); Monocytes # 0.2 10^3/uL (0.2-0.9); Monocytes % 1.1 %; Neutrophils # 15.43 10^3/uL (1.8-7.7); Neutrophils % 95.8 %; Nucleated Red Blood Cells % 0 %; Platelet Count 303 10^3/cmm (130-400); Red Blood Count 2.97 10^6/uL (4.1-5.3); White Blood Count 16.1 10^3/uL (4.0-10.0)
[2020-06-21] MEDS: FUROsemide 40 mg Tablet PO (06:52)
[2020-06-21 07:06] LABS: Blood Urea Nitrogen 57 mg/dL (8-23); Calcium 8.8 mg/dL (8.5-10.5); Carbon Dioxide 18 mmol/L (22-29); Chloride 106 mmol/L (98-107); Glucose 144 mg/dL (65-115); Magnesium 1.9 mg/dL (1.7-2.3); Osmolality Calculated 300 mOsm/kg (285-295); Sodium 136 mmol/L (136-145)
[2020-06-21 08:23] LABS: Anion Gap 16.5 (5-19); Potassium 4.5 mmol/L (3.5-5.1)
[2020-06-21] MEDS: apixaban 5 mg Tablet PO ×2 (10:48→18:34)
[2020-06-21] MEDS: atorvastatin 40 mg Tablet 20 MG PO (10:48)
[2020-06-21] MEDS: aspirin 81 mg EC Tablet PO (10:48)
[2020-06-21] MEDS: cyanocobalamin 1,000 mcg Tablet 1000 MCG PO (10:48)
[2020-06-21] MEDS: ascorbic acid 500 mg Tablet PO ×2 (10:48→18:34)
[2020-06-21] MEDS: zinc gluconate 50 mg Tablet PO (10:49)
[2020-06-21] MEDS: docusate sodium 100 mg Capsule PO ×2 (10:49→18:35)
[2020-06-21] MEDS: sucralfate 1 gm Tablet PO ×2 (10:49→18:35)
--- NOTE | 2020-06-21 14:09 | PM.PN ---
Subjective Subjective: Interval history: Remains on 2 L nasal cannula, hemodynamically stable, afebrile, had to 75 mL urine output overnight. Decreasing leukocytosis, stable renal function. 1/3 bottles of blood cx positive for GPC, repeat set ordered. Resting quietly in bed, no apparent distress, no acute overnight events reported, no complaints. LUE remains quite swollen. Medications: Reviewed: Yes Medication Review Details: Active Medications Generic Name Dose Route Start Last Admin Trade Name Freq PRN Reason Stop Dose Admin Acetaminophen 650 mg 06/20/20 18:14 Tylenol PO Q6H PRN MILD PAIN Albuterol Sulfate 1 puff 06/20/20 20:00 06/21/20 11:51 Ventolin INHALATION 1 puff Q4H.RESPIRATORY S CH Administration Apixaban 5 mg 06/21/20 09:00 06/21/20 10:48 Eliquis PO 5 mg BID BLOSSOM Administration Ascorbic Acid 500 mg 06/21/20 09:00 06/21/20 10:48 Vitamin C PO 500 mg BID BLOSSOM Administration Aspirin 81 mg 06/21/20 09:00 06/21/20 10:48 Aspirin Ec PO 81 mg DAILY BLOSSOM Administration Atorvastatin Calci um 20 mg 06/21/20 09:00 06/21/20 10:48 Lipitor PO 20 mg DAILY BLOSSOM Administration Benzonatate 100 mg 06/20/20 18:30 Tessalon Pearls PO TID PRN COUGH Cyanocobalamin 1,000 mcg 06/21/20 09:00 06/21/20 10:48 Vitamin B-12 PO 1,000 mcg DAILY BLOSSOM Administration Docusate Sodium 100 mg 06/21/20 09:00 06/21/20 10:49 Colace PO 100 mg BID BLOSSOM Administration Furosemide 40 mg 06/21/20 06:00 06/21/20 06:52 Lasix PO 40 mg QAM BLOSSOM Administration Guaifenesin 200 mg 06/20/20 18:30 Robitussin Oral Liq PO Q4H PRN COUGH AND CONGEST ION Vancomycin HCl 1,0 00 mg/ 250 mls @ 250 mls /hr 06/22/20 14:00 Sodium Chloride IV Q48H BLOSSOM Protocol As Directed Piperacillin Sod/T azobactam 50 mls @ 12.5 mls /hr 06/21/20 01:00 06/21/20 13:29 Sod 3.375 gm/ So dium Chloride IV 12.5 mls/hr Q12H BLOSSOM Administration Protocol As Directed Levofloxacin/Dextr ose 500 mg in 100 mls @ 100 mls/hr 06/22/20 19:30 Levaquin-D5w IV Q48H BLOSSOM Protocol Lorazepam 1 mg 06/20/20 18:14 Ativan IVP Q6H PRN ANXIETY Mirtazapine 30 mg 06/20/20 21:00 06/20/20 22:06 Remeron PO 30 mg BEDTIME BLOSSOM Administration Ondansetron HCl 4 mg 06/20/20 18:14 Zofran IVP Q6H PRN NAUSEA AND VOMITI NG Prednisone 40 mg 06/20/20 21:30 06/20/20 22:05 Prednisone PO 07/01/20 21:29 40 mg Q24H BLOSSOM Administration Taper Fluticasone/Salmet stefan 1 puff 06/20/20 20:00 06/21/20 08:31 Advair Diskus 25 0-50 INHALATION 1 puff BID.RESPIRATORY S CH Administration Sucralfate 1 gm 06/21/20 09:00 06/21/20 10:49 Carafate PO 1 gm BID BLOSSOM Administration Zinc Gluconate 50 mg 06/21/20 09:00 06/21/20 10:49 Zinc Gluconate PO 50 mg DAILY BLOSSOM Administration No Known Allergies Allergy (Verified 05/17/20 02:56) Vitals/I&O/Wt Last Vital Signs Temp 97.7 F 06/21/20 12:00 Pulse 83 06/21/20 12:00 Resp 14 06/21/20 12:00 BP 145/82 06/21/20 12:00 Pulse Ox 98 06/21/20 12:00 06/20/20 06/21/20 06/21/20 22:59 06:59 14:59 Intake Total 450 / 500 170 / 670 240 / 240 Output Total 125 / 125 150 / 275 150 / 150 Balance 325 / 375 20 / 395 90 / 90 Weight last 48 hrs Weight 72.575 kg Physical Exam Const: COMMON NORMALS: no acute distress and patient oriented x3 GENERAL APPEARANCE: cooperative and comfortable ORIENTATION/CONSCIOUSNESS: Yes awake HENMT: COMMON NORMALS: normocephalic, atraumatic and moist oral mucous membranes HEAD & SCALP: normocephalic and atraumatic GENERAL EAR: hearing grossly impaired (quite hard of hearing) Eye: COMMON NORMALS: Equal, round and reactive pupils present, EOMs intact bilaterally and conjunctivae normal CONJUNCTIVA: Yes conjunctivae normal PUPIL: Yes Equal, round and reactive pupils present Neck/C-Spine: COMMON NORMALS: full ROM GENERAL: Yes normal visual inspection and Yes trachea midline Resp: COMMON NORMALS: normal respiratory effort, No retractions and No use of accessory muscles EFFORT & INSPECTION: Yes able to speak in complete sentences, Yes symmetric chest movement and No tachypneic AUSCULTATION: rhonchi and diminished lung sounds OTHER: -on 2 L NC Cardio: COMMON NORMALS: regular rate, regular rhythm, S1 normal heart sound present, S2 normal heart sound present and No murmurs present (Cardio) RATE: regular rate RHYTHM: regular rhythm HEART SOUNDS: S1 normal heart sound present and S2 normal heart sound present GI: COMMON NORMALS: Normal to inspection, nondistended, normoactive bowel sounds present, Soft to palpation and non-tender PALPATION: Yes Soft to palpation Extremity: COMMON NORMALS: normal to inspection and full ROM NARRATIVE EXTREMITY EXAM: -significant edema of LUE Neuro: COMMON NORMALS: patient oriented x3, moves all extremities, no focal motor deficits, no sensory deficits noted and gait normal Psych: COMMON NORMALS: mental status grossly normal, Normal thought process present, cooperative, normal affect and speech normal SPEECH: Yes normal speech THOUGHT PROCESS: Normal thought process present Skin: COMMON NORMALS: no jaundice, no petechiae and no mottling NARRATIVE SKIN EXAM: -scattered skin lesions Data : 06/21/20 05:45 06/21/20 05:45 Micro: Microbiology 06/20/20 13:10 Blood Culture - Preliminary Blood NEGATIVE TO DATE 06/20/20 12:50 Blood Culture - Preliminary Blood Gram positive cocci A&P Assessment and plan (1) Bacterial pneumonia: -Noted evidence of pneumonia on imaging -Had just been recovering from COVID 19 infection for which he was hospitalized and received a 5-day course of Remdesevir, IV steroids with some improvement noted on follow-up imaging and trending of inflammatory markers -treat with broad spectrum IV antibiotics -inhaler treatments, antitussives PRN -close monitoring of respiratory status -supplemental oxygen as needed -noted leukocytosis with neutrophilic predominance, improving; continue to trend WBC; [id number] -pulmonary toilet, IS -blood cx: 1/3 bottles positive for GPC, likely contaminant, order repeat set -monitor vital signs -Hold CellCept which patient is on due to underlying history of polyarteritis nodosa Status: Acute (2) Cellulitis: -noted significant edema of LUE; prior peripheral IV site -LUE elevation, warm compresses -venous duplex with noted diffuse edema, no DVT -superficial erythema, tenderness; on antibiotics -blood cx: 1/3 bottles positive for GPC, likely contaminant, order repeat set Status: Acute Qualifiers: Laterality: left Site of cellulitis: extremity Site of cellulitis of extremity: upper extremity Qualified Code(s): L03.114 - Cellulitis of left upper limb (3) Congestive heart failure: -required diuresis previously due to noted diastolic CHF exacerbation; low threshold for developing fluid overload -continue oral diuretics -Last echo done in 05/2020 showed ejection fraction of 62% with mild concentric LVH, mild AR, trace MR, trace TR -BNP >25,000, has underlying renal impairment Status: Chronic Qualifiers: Heart failure chronicity: unspecified Heart failure type: unspecified Qualified Code(s): I50.9 - Heart failure, unspecified (4) COVID-19 virus infection: -COVID-19 positive and treated with 5-day course of remdesevir and IV steroids with noted clinical improvement, decreasing oxygen requirement, and improving inflammatory markers -isolation precautions -Close monitoring of respiratory status, supplemental oxygen support as tolerated -continue supportive care including vitamin C, zinc, oral steroid taper, inhaler treatments as needed, pulmonary toilet, IS -blood cx-negative, MRSA negative Status: Acute (5) Anemia: -Has known history of anemia and has had prior GI work-up which per patient was negative for any acute bleeding source -Prior admission last month for severe anemia with hemoglobin as low as 4 and requirement of transfusion of blood products -s/p 1 unit with improvement in Hg up to 10 (06/15) -continue to monitor H/H closely particularly as on AC Status: Chronic Qualifiers: Anemia type: unspecified type Qualified Code(s): D64.9 - Anemia, unspecified (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 (7) Chronic kidney disease, stage III (moderate): -has known CKD stage 3 -baseline Cr is around 3 -continue to monitor renal function, avoid nephrotoxins, renally dose meds -Had renal ultrasound done last month which showed markedly diminished velocities in the renal arteries which may be suggestive of proximal stenosis, unfortunately cannot do CTA due to renal function -Follows up with nephrology at [facility] Status: Chronic Qualifiers: Chronic kidney disease stage 3 subtype: unspecified whether 3a or 3b Qualified Code(s): N18.30 - Chronic kidney disease, stage 3 unspecified Additional A&P Information -Recurrent falls, generalized weakness, physical deconditioning, previously had rhabdomyolysis which resolved; PT evaluations requested, strict fall precautions -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 May not be a good candidate for long-term anticoagulation given underlying anemia with need for transfusion of blood products, recurrent falls -Known history of hypertension, on oral antihypertensives -GERD; on PPI and carafate -Hyperlipidemia; continue statin -Skin cancer affecting L ear; currently undergoing treatment -Very hard of hearing; hearing slightly better on the R -will move closer to nursing station -GI ppx with PPI -DVT ppx not needed as on Eliquis -Dispo: family wishes to pursue SNF placement; case management already working on this -Code status: FULL code Attestations Medical Necessity Statement*: Patient requires hospitalization for continued treatment of left upper extremity cellulitis, pneumonia on broad-spectrum IV antibiotics, pending appropriate disposition. Time Spent in Patient Care: 16 - 35 minutes (>than 50% of time spent in counselling and/or direct pt care on unit). Coding Level of Care Code Acute [employer] Installer for [facility] Fwd Exam Comprehensive Diagnoses Bacterial pneumonia J15.9 Cellulitis L03.114 Laterality: left Site of cellulitis: extremity Site of cellulitis of extremity: upper extremity Congestive heart failure I50.9 Heart failure chronicity: unspecified Heart failure type: unspecified COVID-19 virus infection U07.1 Anemia D64.9 Anemia type: unspecified type Polyarteritis nodosa M30.0 Chronic kidney disease, stage III (moderate) N18.30 Chronic kidney disease stage 3 subtype: unspecified whether 3a or 3b
--- NOTE | 2020-06-21 19:30 | PC.NURSE ---
PT RESTING IN BED MOST OF DAY, LEFT ARM IS SWOLLEN, RED, AND TENDER TO TOUCH. PT WAS UP WITH PT THIS AM. NO OTHER CHANGES AT THIS TIME. UPDATED FAMILY THIS AFTERNOON.
[2020-06-21] MEDS: predniSONE 10 mg Tablet 30 MG PO (21:33)
[2020-06-21] MEDS: mirtazapine 30 mg Tablet PO (21:34)
[2020-06-22] VITALS (106 sets, daily range): BP systolic 124–179; BP diastolic 72–107; PULSE 62–91; RESP 8–29; TEMP 36.4–37.1; O2SAT 88–100
[2020-06-22] MEDS: piperacillin-tazobactam 3.375 GM in sodium chloride 0.9% (plus) 50 ML IV ×2 (00:47→14:20)
[2020-06-22 05:41] LABS: Basophils % 0.1 %; Hematocrit 28.5 % (42.0-52.0); Hemoglobin 8.8 g/dL (11.7-16.6); Lymphocytes # 0.4 10^3/uL (0.8-4.8); Lymphocytes % 2.2 %; Mean Corpuscular HGB Conc 30.9 g/dL (30.0-36.0); Mean Corpuscular Hemoglobin 30.3 pg (28.0-34.0); Mean Corpuscular Volume 98.3 fL (80-94); Monocytes # 0.3 10^3/uL (0.2-0.9); Monocytes % 1.6 %; Neutrophils # 15.56 10^3/uL (1.8-7.7); Neutrophils % 94.4 %; Nucleated Red Blood Cells % 0 %; Platelet Count 292 10^3/cmm (130-400); Red Cell Distribution Width 17.7 % (12.1-15.1); White Blood Count 16.5 10^3/uL (4.0-10.0)
[2020-06-22 06:22] LABS: Blood Urea Nitrogen 68 mg/dL (8-23); Calcium 8.3 mg/dL (8.5-10.5); Carbon Dioxide 17 mmol/L (22-29); Chloride 106 mmol/L (98-107); Glucose 142 mg/dL (65-115); Osmolality Calculated 304 mOsm/kg (285-295); Sodium 136 mmol/L (136-145)
[2020-06-22] MEDS: FUROsemide 40 mg Tablet PO (06:40)
[2020-06-22] MEDS: ascorbic acid 500 mg Tablet PO ×2 (08:08→17:25)
[2020-06-22] MEDS: zinc gluconate 50 mg Tablet PO (08:08)
[2020-06-22] MEDS: docusate sodium 100 mg Capsule PO ×2 (08:08→17:25)
[2020-06-22] MEDS: apixaban 5 mg Tablet PO ×2 (08:09→17:24)
[2020-06-22] MEDS: aspirin 81 mg EC Tablet PO (08:09)
[2020-06-22] MEDS: atorvastatin 40 mg Tablet 20 MG PO (08:09)
[2020-06-22] MEDS: cyanocobalamin 1,000 mcg Tablet 1000 MCG PO (08:10)
[2020-06-22] MEDS: sucralfate 1 gm Tablet PO ×2 (08:11→17:25)
[2020-06-22] MEDS: albuterol 8 gm MDI 1 PUFF INHALATION ×5 (08:48→19:30)
[2020-06-22] MEDS: vancomycin 1,000 MG in sodium chloride 0.9% 250 ML 250 MG IV (13:11)
--- NOTE | 2020-06-22 13:48 | PC.NURSE ---
ORDERED PER DR. WALTON TO CHANGE TIME ON ZOSYN TO ACCOMODATE VANCOMYCIN DOSING TIME FOR ONE IV.
--- NOTE | 2020-06-22 13:51 | PM.PN ---
Subjective Subjective: Interval history: Good reports he is doing okay. No particular concerns. Medications: Reviewed: Yes Vitals/I&O/Wt Last Vital Signs Temp 98.0 F 06/22/20 11:37 Pulse 71 06/22/20 11:37 Resp 15 06/22/20 11:37 BP 138/104 06/22/20 11:37 Pulse Ox 97 06/22/20 11:37 06/21/20 06/22/20 06/22/20 22:59 06:59 14:59 Intake Total 770 / 1010 240 / 1250 360 / 360 Output Total 650 / 800 350 / 1150 125 / 125 Balance 120 / 210 -110 / 100 235 / 235 Physical Exam Narrative: EXAM NARRATIVE: General exam no apparent distress Cardiovascular regular in rhythm without murmur Lungs clear Abdomen is soft positive bowel sounds Extremities no cyanosis clubbing or edema with the exception of the left arm which has some edema, erythema Data : 06/22/20 04:30 06/22/20 04:30 Micro: Microbiology 06/20/20 12:50 Blood Culture - Preliminary Blood Enterococcus species 06/21/20 15:40 Blood Culture - Preliminary Blood SPECIMEN COLLECTED 06/21/20 15:38 Blood Culture - Preliminary Blood SPECIMEN COLLECTED 06/20/20 13:10 Blood Culture - Preliminary Blood NEGATIVE TO DATE A&P Assessment and plan (1) Bacterial pneumonia: Previously hospitalized June 15-, with Covid 19 pneumonia and received antiviral and steroids at that time. Rehospitalized with concern of pneumonia, and elevated pro calcitonin level. Currently on vancomycin, Zosyn, and Levaquin 1 of 3 bottles blood culture enterococcus. Likely contaminant. Redraw obtained Check MRSA DNA Wean oxygen as tolerated. No significant pulmonary symptoms currently. Discontinue Levaquin Holding CellCept which patient was on for polyarteritis Continue prednisone Status: Acute (2) Cellulitis: Continue vancomycin and Zosyn Venous duplex with no evidence of DVT Status: Acute Qualifiers: Laterality: left Site of cellulitis: extremity Site of cellulitis of extremity: upper extremity Qualified Code(s): L03.114 - Cellulitis of left upper limb (3) Congestive heart failure: Continue oral diuretics Last echocardiogram May of this year demonstrated preserved EF Status: Chronic Qualifiers: Heart failure type: unspecified Heart failure chronicity: unspecified Qualified Code(s): I50.9 - Heart failure, unspecified (4) COVID-19 virus infection: Continue supportive care Note that he completed antiviral and IV steroid 5-day course as noted above Status: Acute (5) Anemia: Last transfusion June 15. Hemoccult negative at that time. Status: Chronic Qualifiers: Anemia type: unspecified type Qualified Code(s): D64.9 - Anemia, unspecified (6) Polyarteritis nodosa: hold CellCept currently Status: Chronic (7) Chronic kidney disease, stage III (moderate): Creatinine stable. Known chronic kidney disease stage III May have element of renal artery stenosis. Will need follow-up with nephrology as outpatient. Does this at [place]. Status: Chronic Qualifiers: Chronic kidney disease stage 3 subtype: unspecified whether 3a or 3b Qualified Code(s): N18.30 - Chronic kidney disease, stage 3 unspecified Additional A&P Information Right lower extremity DVT, on anticoagulation with Eliquis GERD. Continue Carafate Hyperlipidemia. Continue statin Full code, Eliquis will suffice for DVT prophylaxis Attestations Medical Necessity Statement*: Needs continued hospitalization for IV antibiotics secondary to cellulitis, pneumonia Coding Level of Care Code Acute Chair Springer for [facility] Fwd Diagnoses Bacterial pneumonia J15.9 Cellulitis L03.114 Laterality: left Site of cellulitis: extremity Site of cellulitis of extremity: upper extremity Congestive heart failure I50.9 Heart failure type: unspecified Heart failure chronicity: unspecified COVID-19 virus infection U07.1 Anemia D64.9 Anemia type: unspecified type Polyarteritis nodosa M30.0 Chronic kidney disease, stage III (moderate) N18.30 Chronic kidney disease stage 3 subtype: unspecified whether 3a or 3b
[2020-06-22] MEDS: predniSONE 10 mg Tablet 30 MG PO (20:45)
[2020-06-22] MEDS: mirtazapine 30 mg Tablet PO (20:45)
[2020-06-23] VITALS (31 sets, daily range): BP systolic 131–181; BP diastolic 72–109; PULSE 66–96; RESP 11–24; TEMP 36.4–37.1; O2SAT 84–97
[2020-06-23] MEDS: piperacillin-tazobactam 3.375 GM in sodium chloride 0.9% (plus) 50 ML IV ×2 (01:48→13:38)
[2020-06-23 05:29] LABS: Basophils % 0.1 %; Hematocrit 27.9 % (42.0-52.0); Hemoglobin 8.7 g/dL (11.7-16.6); Lymphocytes # 0.3 10^3/uL (0.8-4.8); Lymphocytes % 2.3 %; Mean Corpuscular HGB Conc 31.2 g/dL (30.0-36.0); Mean Corpuscular Hemoglobin 30.4 pg (28.0-34.0); Mean Corpuscular Volume 97.6 fL (80-94); Mean Platelet Volume 10.5 fL (7.4-10.4); Monocytes # 0.3 10^3/uL (0.2-0.9); Monocytes % 1.9 %; Neutrophils # 14.19 10^3/uL (1.8-7.7); Nucleated Red Blood Cells % 0 %; Platelet Count 333 10^3/cmm (130-400); Red Blood Count 2.86 10^6/uL (4.1-5.3); Red Cell Distribution Width 17.8 % (12.1-15.1); White Blood Count 15.1 10^3/uL (4.0-10.0)
[2020-06-23] MEDS: FUROsemide 40 mg Tablet PO (05:51)
[2020-06-23 05:53] LABS: Alanine Aminotransferase 20 U/L (0-41); Albumin Level 2.6 g/dL (3.5-5.2); Alkaline Phosphatase 62 IU/L (40-130); Anion Gap 17.4 (5-19); Aspartate Amino Transferase 14 U/L (0-40); Blood Urea Nitrogen 76 mg/dL (8-23); Calcium 8.2 mg/dL (8.5-10.5); Carbon Dioxide 18 mmol/L (22-29); Chloride 104 mmol/L (98-107); Globulin 2.5 g/dL (1.3-4.6); Glucose 159 mg/dL (65-115); Osmolality Calculated 304 mOsm/kg (285-295); Potassium 5.4 mmol/L (3.5-5.1); Sodium 134 mmol/L (136-145); Total Bilirubin 0.2 mg/dL (0.15-1.2); Total Protein 5.1 g/dL (6.6-8.7)
[2020-06-23] MEDS: albuterol 8 gm MDI 1 PUFF INHALATION ×3 (08:48→19:25)
[2020-06-23] MEDS: aspirin 81 mg EC Tablet PO (11:36)
[2020-06-23] MEDS: apixaban 5 mg Tablet PO ×2 (11:36→17:28)
[2020-06-23] MEDS: docusate sodium 100 mg Capsule PO ×2 (11:36→17:28)
[2020-06-23] MEDS: ascorbic acid 500 mg Tablet PO ×2 (11:36→17:28)
[2020-06-23] MEDS: zinc gluconate 50 mg Tablet PO (11:37)
[2020-06-23] MEDS: atorvastatin 40 mg Tablet 20 MG PO (11:37)
[2020-06-23] MEDS: sucralfate 1 gm Tablet PO ×2 (11:38→17:29)
[2020-06-23] MEDS: cyanocobalamin 1,000 mcg Tablet 1000 MCG PO (11:38)
--- NOTE | 2020-06-23 11:42 | P.PN_ITS ---
Subjective Subjective: Interval history: Good reports his arm feels significantly better. Denies shortness of breath today. Medications: Reviewed: Yes Vitals/I&O/Wt Last Vital Signs Temp 98.4 F 06/23/20 08:00 Pulse 76 06/23/20 08:48 Resp 17 06/23/20 08:48 BP 145/85 06/23/20 06:00 Pulse Ox 94 06/23/20 08:48 06/22/20 06/23/20 06/23/20 22:59 06:59 14:59 Intake Total 290 / 900 300 / 1200 770 / 770 Output Total 350 / 475 700 / 1175 400 / 400 Balance -60 / 425 -400 / 25 370 / 370 Weight last 48 hrs Weight 75.478 kg Weight 72.938 kg Physical Exam Narrative: EXAM NARRATIVE: General exam no apparent distress Cardiovascular regular in rhythm without murmur Lungs clear Abdomen is soft positive bowel sounds Extremities no cyanosis clubbing or edema with the exception of the left arm which has some edema, erythema. This is markedly improved from yesterday. Data : 06/23/20 04:40 06/23/20 04:40 Micro: Microbiology 06/22/20 14:30 MRSA Culture - Final Nose 06/21/20 15:40 Blood Culture - Preliminary Blood NEGATIVE TO DATE 06/21/20 15:38 Blood Culture - Preliminary Blood NEGATIVE TO DATE 06/20/20 12:50 Blood Culture - Preliminary Blood Enterococcus species A&P Assessment and plan (1) Bacterial pneumonia: Previously hospitalized June 15-, with Covid 19 pneumonia and received antiviral and steroids at that time. Rehospitalized with concern of pneumonia, and elevated pro calcitonin level. Currently on vancomycin, Zosyn 1 of 3 bottles blood culture enterococcus. Likely contaminant. Redraw obtained and culture negative to date MRSA DNA negative. He is now off oxygen Continue vancomycin and Zosyn currently Holding CellCept which patient was on for polyarteritis Continue prednisone Repeat chest x-ray tomorrow. Status: Acute (2) Cellulitis: Continue vancomycin and Zosyn Venous duplex of left upper extremity with no evidence of DVT Status: Acute Qualifiers: Laterality: left Site of cellulitis: extremity Site of cellulitis of extremity: upper extremity Qualified Code(s): L03.114 - Cellulitis of left upper limb (3) Congestive heart failure: He is compensated currently Renal function has worsened slightly We will hold diuretics. Last echocardiogram May of this year demonstrated preserved EF Status: Chronic Qualifiers: Heart failure type: unspecified Heart failure chronicity: unspecified Qualified Code(s): I50.9 - Heart failure, unspecified (4) COVID-19 virus infection: Continue supportive care Note that he completed antiviral and IV dexamethasone 5-day course as noted above Status: Acute (5) Anemia: Last transfusion June 15. Hemoccult negative at that time. 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 Hold diuretics May have element of renal artery stenosis. Will need follow-up with nephrology as outpatient. Does this at [place]. Status: Chronic Qualifiers: Chronic kidney disease stage 3 subtype: unspecified whether 3a or 3b Qualified Code(s): N18.30 - Chronic kidney disease, stage 3 unspecified Additional A&P Information Right lower extremity DVT, on anticoagulation with Eliquis GERD. Continue Carafate Hyperlipidemia. Continue statin Full code, Eliquis will suffice for DVT prophylaxis Plan on skilled care placement. Will not need IV antibiotics on discharge. Attestations Medical Necessity Statement*: Needs continued hospitalization for IV antibiotics related to cellulitis left upper extremity, probable pneumonia as well as close follow-up of renal function pending placement. Coding Level of Care Code Acute Medical Record Assistant for [facility] Fwd Diagnoses Bacterial pneumonia J15.9 Cellulitis L03.114 Laterality: left Site of cellulitis: extremity Site of cellulitis of extremity: upper extremity Congestive heart failure I50.9 Heart failure type: unspecified Heart failure chronicity: unspecified COVID-19 virus infection U07.1 Anemia D64.9 Anemia type: unspecified type Polyarteritis nodosa M30.0 Chronic kidney disease, stage III (moderate) N18.30 Chronic kidney disease stage 3 subtype: unspecified whether 3a or 3b
--- NOTE | 2020-06-23 11:50 | XRR_ITS ---
PROCEDURE INFORMATION: Exam: XR Chest, 1 View Exam date and time: 06/23/2020 12:29 PM Age: 80 years old Clinical indication: Condition or disease; Lung condition and disease; Pneumonia; Patient HX: [place]; Additional info: Follow up pneumonia TECHNIQUE: Imaging protocol: XR of the chest Views: 1 view. COMPARISON: CR (CHEST, ) 06/20/2020 11:51 AM FINDINGS: Lungs: Alveolar airspace consolidation versus atelectasis both lung bases. Moderate pleural effusions. Right slightly greater than left. Mildly improved aeration. Pleural space: See Lungs finding. Heart/Mediastinum: Unremarkable. No cardiomegaly. Bones/joints: Unremarkable. XR/XR chest 1V portable [id number] IMPRESSION: Alveolar airspace consolidation versus atelectasis both lung bases. Moderate pleural effusions. Right slightly greater than left. Mildly improved aeration.
--- NOTE | 2020-06-23 13:32 | PC.SOCIAL ---
Pg 2 IMM. Explained to pt's son, Jake, via phone Pg 2 IMM. No questions voiced. Signed, dated, & timed copy for chart.
[2020-06-23] MEDS: mirtazapine 30 mg Tablet PO (21:03)
[2020-06-23] MEDS: predniSONE 10 mg Tablet 30 MG PO (21:03)
[2020-06-24] VITALS (18 sets, daily range): BP systolic 139–166; BP diastolic 77–93; PULSE 64–81; RESP 12–25; TEMP 36.6–36.9; O2SAT 93–98
[2020-06-24] MEDS: albuterol 8 gm MDI 1 PUFF INHALATION ×4 (00:32→11:15)
[2020-06-24] MEDS: piperacillin-tazobactam 3.375 GM in sodium chloride 0.9% (plus) 50 ML IV (01:47)
[2020-06-24 06:27] LABS: Anion Gap 18.4 (5-19); Blood Urea Nitrogen 79 mg/dL (8-23); Calcium 8.2 mg/dL (8.5-10.5); Carbon Dioxide 18 mmol/L (22-29); Chloride 106 mmol/L (98-107); Glucose 164 mg/dL (65-115); Osmolality Calculated 311 mOsm/kg (285-295); Potassium 5.4 mmol/L (3.5-5.1); Sodium 137 mmol/L (136-145)
[2020-06-24] MEDS: apixaban 5 mg Tablet PO (09:38)
[2020-06-24] MEDS: ascorbic acid 500 mg Tablet PO (09:38)
[2020-06-24] MEDS: aspirin 81 mg EC Tablet PO (09:39)
[2020-06-24] MEDS: cyanocobalamin 1,000 mcg Tablet 1000 MCG PO (09:39)
[2020-06-24] MEDS: atorvastatin 40 mg Tablet 20 MG PO (09:39)
[2020-06-24] MEDS: docusate sodium 100 mg Capsule PO (09:39)
[2020-06-24] MEDS: zinc gluconate 50 mg Tablet PO (09:40)
[2020-06-24] MEDS: sucralfate 1 gm Tablet PO (09:40)
--- NOTE | 2020-06-24 11:29 | PM.PN ---
Subjective Subjective: Interval history: Good reports no complaints. Arm feels better but is still swollen. Still some tenderness. Medications: Reviewed: Yes Vitals/I&O/Wt Last Vital Signs Temp 98.5 F 06/24/20 07:41 Pulse 81 06/24/20 10:00 Resp 18 06/24/20 10:00 BP 139/77 06/24/20 10:00 Pulse Ox 95 06/24/20 10:00 06/23/20 06/24/20 06/24/20 22:59 06:59 14:59 Intake Total 290 / 1300 460 / 1760 530 / 530 Output Total 900 / 1300 450 / 1750 300 / 300 Balance -610 / 0 230 / 230 Weight last 48 hrs Weight 76.294 kg Weight 75.478 kg Physical Exam Narrative: EXAM NARRATIVE: General exam no apparent distress Cardiovascular regular in rhythm without murmur Lungs clear Abdomen is soft positive bowel sounds Extremities no cyanosis clubbing or edema with the exception of the left arm which has some edema, erythema. This is unchanged from yesterday today. Data : 06/23/20 04:40 06/24/20 04:35 Micro: Microbiology 06/20/20 12:50 Blood Culture - Preliminary Blood Enterococcus faecalis Coagulase negativ staphylococc 06/22/20 14:30 MRSA Culture - Final Nose A&P Assessment and plan (1) Bacterial pneumonia: Previously hospitalized June 15-, with Covid 19 pneumonia and received antiviral and steroids at that time. Rehospitalized with concern of pneumonia, and elevated pro calcitonin level. Currently on vancomycin, Zosyn 1 of 3 bottles blood culture enterococcus, coag negative staph. Likely contaminant. Redraw obtained and culture negative to date MRSA DNA negative. He is now off oxygen Continue Zosyn. Change vancomycin to linezolid secondary to worsening renal function Holding CellCept which patient was on for polyarteritis Continue prednisone Repeat chest x-ray demonstrated persistent infiltrates, mild bilateral effusions per my read Status: Acute (2) Cellulitis: Continue vancomycin and Zosyn Venous duplex of left upper extremity with no evidence of DVT Status: Acute Qualifiers: Laterality: left Site of cellulitis: extremity Site of cellulitis of extremity: upper extremity Qualified Code(s): L03.114 - Cellulitis of left upper limb (3) Congestive heart failure: He is compensated currently Renal function has worsened slightly. Discontinue vancomycin. Changed to linezolid Continue to hold diuretics currently Last echocardiogram May of this year demonstrated preserved EF Status: Chronic Qualifiers: Heart failure type: unspecified Heart failure chronicity: unspecified Qualified Code(s): I50.9 - Heart failure, unspecified (4) COVID-19 virus infection: Continue supportive care Note that he completed antiviral and IV dexamethasone 5-day course as noted above Status: Acute (5) Anemia: Last transfusion June 15. Hemoccult negative at that time. 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 Continue to hold diuretics May have element of renal artery stenosis. Will need follow-up with nephrology as outpatient. Does this at [place]. Status: Chronic Qualifiers: Chronic kidney disease stage 3 subtype: unspecified whether 3a or 3b Qualified Code(s): N18.30 - Chronic kidney disease, stage 3 unspecified Additional A&P Information Right lower extremity DVT, on anticoagulation with Eliquis GERD. Continue Carafate Hyperlipidemia. Continue statin Full code, Eliquis will suffice for DVT prophylaxis Plan on skilled care placement. Will not need IV antibiotics on discharge. Attestations Medical Necessity Statement*: Needs continued hospitalization for IV antibiotics secondary cellulitis left arm, pending arrangements for discharge. Coding Level of Care Code Acute Field Tech for [facility] Fwd Diagnoses Bacterial pneumonia J15.9 Cellulitis L03.114 Laterality: left Site of cellulitis: extremity Site of cellulitis of extremity: upper extremity Congestive heart failure I50.9 Heart failure type: unspecified Heart failure chronicity: unspecified COVID-19 virus infection U07.1 Anemia D64.9 Anemia type: unspecified type Polyarteritis nodosa M30.0 Chronic kidney disease, stage III (moderate) N18.30 Chronic kidney disease stage 3 subtype: unspecified whether 3a or 3b
--- NOTE | 2020-06-24 13:15 | PC.NURSE ---
Pt working with PT and experienced minor nosebleed. Pt rubbing nose with tissue. Applied pressure and sat in chair to rest. Bleeding stopped.
[2020-06-24] MEDS: linezolid 600 mg Tablet PO (13:30)
--- NOTE | 2020-06-24 13:51 | PM.DCS ---
Discharge Providers Date of Admission: 06/20/20 13:59 Date of Discharge: June 24, 2020 Attending Provider at Admission: Kaylin Thomas MD Attending Provider at Discharge: Trino Crocker MD Primary Care Provider: Maricarmen Meza MD Diagnoses at Discharge Discharge Diagnosis (1) Bacterial pneumonia: Status: Acute Problem details: MRSA PCR negative. Will discharge on Augmentin (2) Cellulitis: Status: Acute Problem details: Left upper extremity cellulitis, improving. Elevate arm. No evidence of DVT. Qualifiers: Laterality: left Site of cellulitis: extremity Site of cellulitis of extremity: upper extremity Qualified Code(s): L03.114 - Cellulitis of left upper limb (3) Congestive heart failure: Status: Chronic Qualifiers: Heart failure chronicity: unspecified Heart failure type: unspecified Qualified Code(s): I50.9 - Heart failure, unspecified (4) COVID-19 virus infection: Status: Acute Problem details: Finalization 06/15 through 06/18 (5) Anemia: Status: Chronic Qualifiers: Anemia type: unspecified type Qualified Code(s): D64.9 - Anemia, unspecified (6) Polyarteritis nodosa: Status: Chronic (7) Chronic kidney disease, stage III (moderate): Status: Chronic Qualifiers: Chronic kidney disease stage 3 subtype: unspecified whether 3a or 3b Qualified Code(s): N18.30 - Chronic kidney disease, stage 3 unspecified Reason for Visit Reason for Visit: COUGH/FEVER/LEFT ARM SWELLING Hospital Course Hospital Course: Good is an 80-year-old white male with history of polyarteritis, chronic renal failure who was recently hospitalized with COVID presented with significant weakness concern for bacterial pneumonia as well as cellulitis left upper extremity. He was initially placed on vancomycin and Zosyn. Immune medications were held. Prednisone was continued as he was on a tapered regimen from his last hospital stay. During his hospital course he was able to wean off oxygen. Ultrasound of arm occurred and there was no evidence of DVT. MRSA PCR was negative and ultimately vancomycin discontinued. He did not have any significant fevers. Renal function remained relatively stable but secondary to slight worsening his Lasix was held. My discharge date he was on room air, arm was improved, and it was thought he could transition to skilled care at the halfway for strengthening on Augmentin for 7 more days. His prednisone will be tapered to 10 mg over the course of several weeks and he should have follow-up with his marketing research intern. He will also need follow-up at the nursing facility with a physician there and receive a CBC and BMP in 3 days. He should follow a renal diet as he is prone to slight hyperkalemia. Discharge creatinine 3.6. Discharge hemoglobin 8.7 Other important testing and/or information is his last echocardiogram in May demonstrated preserved EF. Last transfusion was June 15 and Hemoccult negative negative at that time. He does have history of right lower extremity DVT for which he is on Eliquis. Physical Exam Narrative: EXAM NARRATIVE: General exam no apparent distress Cardiovascular regular in rhythm Lungs diminished breath sounds bilaterally Abdomen is soft positive bowel sounds Extremities left upper extremity with slight erythema, edema but improved from admission Discharge Data Data Completed and Pending: Completed Studies During Hospitalization Category Date Time Status XR chest 1V vito ble [id number] Routine Exams 06/23/20 11:50 Completed XR chest 1V vito ble [id number] Stat Exams 06/20/20 11:16 [place] [id number] Urgent Ultrasound 06/20/20 11:16 [place] [id number] Urgent Ultrasound 06/20/20 11:16 Completed Pending at discharge Category Date Time Status Basic Metabolic P kelsi AM LABS Lab 06/25/20 04:00 Ordered Blood Culture Sta t Lab 06/20/20 13:10 Results Blood Culture Sta t Lab 06/21/20 15:40 Results Complete Blood Co unt w/Auto AM LABS Lab 06/25/20 04:00 Ordered Procalcitonin AM LABS Lab 06/25/20 04:00 Ordered Labs from last 24 hours 06/24/20 04:35 Sodium 137 Potassium 5.4 H Chloride 106 Carbon Dioxide 18 L Anion Gap 18.4 BUN 79 H Creatinine 3.6 H GFR Calculation Not Reportable Glucose 164 H Calculated Osmolal ity 311 H Calcium 8.2 L Vitals: Last Vital Signs Temp 97.8 F 06/24/20 11:46 Pulse 70 06/24/20 11:00 Resp 16 06/24/20 11:00 BP 139/77 06/24/20 10:00 Pulse Ox 95 06/24/20 11:00 Discharge Plan Discharge Patient Disposition: Xfer SNF Condition: Stable Prescriptions: New Eliquis 5 mg Tablet 5 mg PO BID Qty: 60 RF: 0 albuterol sulfate [Ventolin HFA] 90 mcg/actuation Hfa Aerosol Inhaler 1 puff inhalation Q4H.RESPIRATORY Qty: 1 RF: 0 amoxicillin-pot clavulanate [Augmentin] 875-125 mg tablet 1 tab PO BID Qty: 14 RF: 0 fluticasone propion-salmeterol [Advair Diskus] 250-50 mcg/dose Blister With Device 1 puff inhalation BID.RESPIRATORY Qty: 1 RF: 0 prednisone 10 mg tablet 20 mg PO DAILY Qty: 30 RF: 0 Continued ondansetron HCl [Zofran] 4 mg tablet 4 mg PO BID PRN (Reason: nausea and vomiting) Qty: 30 RF: 0 pravastatin 20 mg tablet 20 mg PO DAILY Qty: 0 RF: 0 Vitamin B-12 1,000 mcg Tablet 1,000 mcg PO DAILY RF: 0 aspirin 81 mg Tablet,Chewable 81 mg PO DAILY RF: 0 mirtazapine 30 mg tablet 30 mg PO BEDTIME RF: 0 Vitamin C 500 mg Tablet 500 mg PO BID Qty: 60 RF: 0 zinc gluconate 50 mg Tablet 50 mg PO DAILY Qty: 30 RF: 0 Carafate 1 gram tablet 1 gm PO BID Qty: 60 RF: 3 Discontinued mycophenolate mofetil [CellCept] 500 mg tablet 1,000 mg PO BID RF: 0 Hold Instructions: Please hold medication until follow up with primary care provider acitretin 25 mg capsule 25 mg PO DAILY RF: 0 Eliquis DVT-PE Treat 30D Start 5 mg (74 tabs) tablets,dose pack 5 mg PO BID RF: 0 prednisone 10 mg tablet See Rx Instructions .ROUTE .COMPLEX 12 Days Qty: 30 RF: 0 potassium chloride 10 mEq tablet extended release 30 meq PO DAILY 30 Days Qty: 90 RF: 0 furosemide 20 mg tablet 40 mg PO QAM Qty: 60 RF: 0 Discharge Orders: Discharge Order (Routine); Ordered 06/24/20 Ordered By: Trino Crocker Referrals: Maricarmen Meza MD [Primary Care Provider] - Discharge Diet: Cardiac Discharge Activity: Increase activity as tolerated Activity Restrictions/Additional Instructions: Renal diet, low in potassium. Soft mechanical diet. CBC, BMP 3 days Prednisone 20 mg a day for 5 days then 15 mg a day for 5 days then 10 mg a day. Please contact marketing research intern after 7 days to see when CellCept or other immune modulating medication should be restarted as well as possible continue prednisone tapering. Discharge Attestations Time Spent in Discharge Care*: greater than 30 min Status at Discharge: Cognitive status at discharge: cognitively intact, Behavioral status at discharge: cooperative, Quality Metrics Clinical Quality Measures During this hospital stay, did patient experience: None Coding Level of Care Code Acute Glass Checker for [facility] Fwd Diagnoses Bacterial pneumonia J15.9 Cellulitis L03.114 Laterality: left Site of cellulitis: extremity Site of cellulitis of extremity: upper extremity Congestive heart failure I50.9 Heart failure chronicity: unspecified Heart failure type: unspecified COVID-19 virus infection U07.1 Anemia D64.9 Anemia type: unspecified type Polyarteritis nodosa M30.0 Chronic kidney disease, stage III (moderate) N18.30 Chronic kidney disease stage 3 subtype: unspecified whether 3a or 3b
--- NOTE | 2020-06-24 15:50 | PC.NURSE ---
IV removed. Tip intact. Pt tolerated well. Denies pain or needs at this time. Pt pleasant and eager to leave. Denies questions.
--- NOTE | 2020-06-24 16:15 | PC.NURSE ---
Attempted to call and son to give update regarding transfer. No answer. Pt waiting for EMS transfer to SNF.
== END 2020-06-24 17:09 | disposition skilled nursing facility (03) | DRG 193 ==
LOC: ER 14:00 → ICU 15:49
PROVIDERS: Emergency Medicine; Admitting Provider Family Medicine; PCP Family Medicine; Visit Provider Internal Medicine
DX: J15.9 Unspecified bacterial pneumonia (principal); U07.1 COVID-19; I13.0 Hypertensive heart and chronic kidney disease with heart failure and stage 1 through stage 4 chronic kidney disease, or unspecified chronic kidney disease; I50.32 Chronic diastolic (congestive) heart failure; D84.821 Immunodeficiency due to drugs; M30.0 Polyarteritis nodosa; L03.114 Cellulitis of left upper limb; N18.30 Chronic kidney disease, stage 3 unspecified; D63.1 Anemia in chronic kidney disease; E78.5 Hyperlipidemia, unspecified; K21.9 Gastro-esophageal reflux disease without esophagitis; M10.9 Gout, unspecified; Z86.718 Personal history of other venous thrombosis and embolism; E20.0 Idiopathic hypoparathyroidism; T45.1X5A Adverse effect of antineoplastic and immunosuppressive drugs, initial encounter; E55.9 Vitamin D deficiency, unspecified; R29.6 Repeated falls; C44.209 Unspecified malignant neoplasm of skin of left ear and external auricular canal; Z79.82 Long term (current) use of aspirin; Z79.01 Long term (current) use of anticoagulants
CPT/HCPCS: 12345; 36415; 71045; 80048; 80053; 82728; 83605; 83615; 83735; 83880; 84145; 85025; 85378; 85384; 85610; 86140; 87040; 87077; 87186; 87205; 87641; 93971; 94640; 94664; 97110; 97116; 97161; 99283; J1956; J2543; J3370; J3535; J7050; J7512

== ENCOUNTER 2020-06-27 12:54 | Emergency (ER) | payer MEDICARE, SELFPAY ==
--- NOTE | 2020-06-27 13:12 | ED_ITS ---
HPI - Epistaxis General: Chief complaint: Epistaxis Stated complaint: NOSE BLEED Time Seen by Provider: 06/27/20 12:59 Source: patient and EMS Mode of arrival: EMS Limitations: other (Extremely hard of hearing) History of Present Illness: HPI Narrative: Mr. Alegre is a nice 80-year-old male brought in by EMS with report of nosebleed. Patient is COVID-19 positive at the intermediate and is on aspirin and Eliquis. Patient had intermittent nosebleed last night that was controlled with pressure but it reoccurred this morning. His aspirin and Eliquis were held this morning. Patient indicates his nosebleed is out of the right side of his nose. It was controlled with pressure for EMS. Patient denies any other complaints or concerns. Patient does have a prior history of anemia as well. Patient denies any other complaints. He is extremely hard of hearing and does not offer much in the way of history is hard to get questions answered. Associated symptoms: Deny fever(s), headache(s), syncope or vomiting Review of Systems Const: Denies: fever(s), chills, body aches, fatigue, malaise or diaphoresis Eyes: Denies: change in vision, blurry vision, photophobia, eye discomfort, eye discharge, eye redness or yellow eyes ENMT: Reports: epistaxis; Denies: throat pain, odynophagia, hoarseness, swelling of lips/tongue, ear or mastoid pain, ear discharge, change in hearing or nasal discharge Card: Denies: chest pain, palpitations, irregular heart rhythm, edema, lightheadedness, syncope, pre-syncope, dyspnea on exertion or orthopnea Resp: Denies: dyspnea, productive cough, non-productive cough, wheezing, hemoptysis or chest congestion GI: Denies: abdominal pain, nausea, vomiting, hematemesis, coffee ground emesis, heartburn, diarrhea, constipation, GI cramping, hematochezia or melena : Denies: flank pain, dysuria, urinary frequency, urinary urgency or hematuria Musc: Denies: neck pain, back pain, extremity pain, extremity swelling, joint pain, joint swelling, joint redness, joint warmth or joint stiffness Skin/Breast: Denies: rash, pruritus, erythema, skin pain or skin tenderness Neuro: Denies: headache(s), numbness in extremities, weakness in extremities, sensory changes, lack of coordination, difficulty walking, dizziness, vertigo, confusion, Slurred speech present or seizure-like activity Alberto/Lymph: Denies: easy bruising, easy bleeding, petechiae, purpura or enlarged lymph nodes All/Imm: Denies: urticaria, throat swelling, tongue swelling, facial swelling or acute wheezing PFSH ED PFSH: Medical History Anemia Chronic kidney disease, stage III (moderate) CRI (chronic renal insufficiency) Diarrhea Dyslipidemia GERD (gastroesophageal reflux disease) Gout History of DVT (deep vein thrombosis) Hypertension Idiopathic parathyroidism Immunosuppression Inguinal hernia left 11/30/2016 Polyarteritis nodosa Skin cancer Vitamin D deficiency Surgical History H/O endoscopy History of hernia repair History of hip surgery Status post biopsy of kidney Family History Other Cancer Social History Smoking and tobacco status: never smoked Alcohol intake: never Marital status: Physical Exam Const: COMMON NORMALS: no acute distress, patient oriented x3, no limitations and alert GENERAL APPEARANCE: cooperative HENMT: COMMON NORMALS: normocephalic, atraumatic, external ears normal, EAC's normal and Normal external nose present HEAD & SCALP: normal to inspection, normocephalic and atraumatic FACE & SINUS: normal facial exam and face symmetric NOSE: Normal external nose present and Epistaxis present on the right source not visualized (Active oozing present that was brisk. Source appears anterior.) EXTERNAL EAR: Yes external ears normal EXTERNAL AUDITORY CANAL: EAC's normal MOUTH: Normal oral and palatal mucosa present, lip normal and tongue normal Eye: COMMON NORMALS: Equal, round and reactive pupils present and conjunctivae normal GENERAL EYE: appearance normal, both eyes and all related structures ALIGNMENT: Yes alignment normal PERIORBITAL: periorbital findings normal EYELID: eyelids normal CONJUNCTIVA: Yes conjunctivae normal SCLERA: sclerae normal PUPIL: Yes Equal, round and reactive pupils present Neck/C-Spine: COMMON NORMALS: full ROM, no lymphadenopathy, supple, no meningeal signs and no JVD GENERAL: Yes normal visual inspection and Yes trachea midline Chest: COMMONS NORMALS: normal inspection of the chest and normal palpation of entire chest wall Resp: COMMON NORMALS: normal respiratory effort, No retractions, No use of accessory muscles and clear to auscultation bilaterally EFFORT & INSPECTION: Yes able to speak in complete sentences and Yes symmetric chest movement AUSC ULTATION: clear to auscultation bilaterally, no crackles, no rales, no rhonchi and no wheezes Cardio: COMMON NORMALS: no JVD, regular rate, regular rhythm, S1 normal heart sound present and S2 normal heart sound present RATE: regular rate RHYTHM: regular rhythm HEART SOUNDS: S1 normal heart sound present, S2 normal heart sound present, no click, no gallops, no murmurs and no rubs GI: COMMON NORMALS: Soft to palpation and No hepatosplenomegaly present PALPATION: Yes Soft to palpation, No Tenderness to palpation present (GI), No Guarding due to palpation present (GI), No Rigid due to palpation, Yes No hepatosplenomegaly present, No Hernia present, No Palpable mass present and No Pulsatile mass present : COMMON NORMALS: Yes no CVA tenderness BLADDER/KIDNEY EXAM: Yes no CVA tenderness Back/Pelvis: COMMON NORMALS: no CVA tenderness, thoracic and lumbar spine normal to inspection, no thoracic nor lumbar tenderness and thoraco-lumbar ROM normal Extremity: COMMON NORMALS: normal to inspection, full ROM, capillary refill normal, no joint enlargement, no clubbing, cyanosis or edema and no calf tenderness Neuro: COMMON NORMALS: patient oriented x3, CN's II-XII intact bilaterally, moves all extremities, no focal motor deficits and no sensory deficits noted SENSORIUM/ORIENTATION: Yes alert MENINGEAL SIGNS: Yes no meningeal signs SPEECH: speech normal Psych: COMMON NORMALS: mental status grossly normal, Normal thought process present, cooperative, normal affect, speech normal and activity/motor behavior normal SPEECH: Yes normal speech THOUGHT PROCESS: Normal thought process present Skin: COMMON NORMALS: no rashes or lesions noted, turgor normal, no jaundice, no petechiae and no mottling GENERAL SKIN EXAM: no rashes or lesions noted and turgor normal Procedures Epistaxis Control Nostril: right Nose Prepped With: oxymetazoline Direct Inspection: yes and anterior source identified (Using for multiple sources seen no definitive venous or arterial bleed identified.) Clots Removed by: blowing nose Device Inserted: hemostatic balloon Device Size: 75 Patient Tolerated Procedure: well and no complications Course Vital Signs: Vital signs: Vital Signs Pulse Rate 70 06/27/20 14:35 Respiratory Rate 20 H 06/27/20 14:35 Blood Pressure 192/103 06/27/20 14:35 Pulse Oximetry 98 06/27/20 14:35 MDM - Epistaxis MDM Narrative: Medical decision making narrative: 1426 -the patient had no further bleeding had he denies any drainage in the back of his throat. On repeat exam I see no evidence of bleeding in the back of his throat. The source of bleeding I could not identify but there was a brisk use that seem to be present coming from the nasal septum. The [employer] has controlled his b leeding. The patient is mildly anemic but he is up from when he was last drawn here. He is not tachycardic and is not hypotensive. He is not having significant pain with the pack. I will give him his first dose of amoxicillin to prophylax him from any type of infection. The care was reviewed with Dr. Crocker who sent the patient to the ER and he is aware will manage further in the intermediate. Lab Data: Labs: Lab Results 06/27/20 06/27/20 06/27/20 Range/Units 13:29 13:29 13:29 WBC 10.8 H (4.0-10.0) 10^3/ uL RBC 3.08 L (4.1-5.3) 10^6/u L Hgb 9.0 L (11.7-16.6) g/dL Hct 30.1 L (42.0-52.0) % MCV 97.7 H (80-94) fL MCH 29.2 (28.0-34.0) pg MCHC 29.9 L (30.0-36.0) g/dL RDW 17.1 H (12.1-15.1) % Plt Count 352 (130-400) 10^3/c mm MPV 9.2 (7.4-10.4) fL Neut % (Auto) 94.9 % Lymph % (Auto) 2.7 % Starke % (Auto) 1.3 % Eos % (Auto) 0.2 % Baso % (Auto) 0.1 % Neut # (Auto) 10.23 H (1.8-7.7) 10^3/u L Lymph # (Auto) 0.3 L (0.8-4.8) 10^3/u L Starke # (Auto) 0.1 L (0.2-0.9) 10^3/u L Eos # (Auto) 0.0 (0.0-0.8) 10^3/u L Baso # (Auto) 0.0 (0.0-0.1) 10^3/u L Nucleated RBC % (a uto) 0 % Nucleated RBCs # 0.0 /100WBC PT 14.20 (12.1-14.9) SECO NDS INR 1.06 (0.8-1.2) APTT 31.2 (23.9-36.7) SECO NDS Sodium 137 (136-145) mmol/L Potassium 5.6 H (3.5-5.1) mmol/L Chloride 106 (98-107) mmol/L Carbon Dioxide 21 L (22-29) mmol/L Anion Gap 15.6 (5-19) BUN 74 H (8-23) mg/dL Creatinine 2.5 H (0.7-1.2) mg/dL GFR Calculation Not Reportable Glucose 145 H (65-115) mg/dL Calculated Osmolal ity 308 H (285-295) mOsm/k g Calcium 8.6 (8.5-10.5) mg/dL Total Bilirubin 0.2 (0.15-1.2) mg/dL AST 17 (0-40) U/L ALT 27 (0-41) U/L Alkaline Phosphata se 68 (40-130) IU/L Total Protein 6.2 L (6.6-8.7) g/dL Albumin 3.4 L (3.5-5.2) g/dL Globulin 2.8 (1.3-4.6) g/dL Discharge Plan Discharge Patient Disposition: Home Clinical Impression: Epistaxis Condition: Stable Prescriptions: New amoxicillin 500 mg capsule 500 mg PO TID 10 Days Qty: 30 RF: 0 No Action ondansetron HCl [Zofran] 4 mg tablet 4 mg PO BID PRN (Reason: nausea and vomiting) Qty: 30 RF: 0 pravastatin 20 mg tablet 20 mg PO DAILY Qty: 0 RF: 0 Advair Diskus 250-50 mcg/dose Blister With Device 1 puff inhalation BID.RESPIRATORY Qty: 1 RF: 0 Ventolin HFA 90 mcg/actuation Hfa Aerosol Inhaler 1 puff inhalation Q4H.RESPIRATORY Qty: 1 RF: 0 Eliquis 5 mg Tablet 5 mg PO BID Qty: 60 RF: 0 Augmentin 875-125 mg tablet 1 tab PO BID Qty: 14 RF: 0 prednisone 10 mg tablet 20 mg PO DAILY Qty: 30 RF: 0 Vitamin B-12 1,000 mcg Tablet 1,000 mcg PO DAILY RF: 0 aspirin 81 mg Tablet,Chewable 81 mg PO DAILY RF: 0 mirtazapine 30 mg tablet 30 mg PO BEDTIME RF: 0 Vitamin C 500 mg Tablet 500 mg PO BID Qty: 60 RF: 0 zinc gluconate 50 mg Tablet 50 mg PO DAILY Qty: 30 RF: 0 Carafate 1 gram tablet 1 gm PO BID Qty: 60 RF: 3 Discharge Orders: Discharge Order (Routine); Ordered 06/27/20 Ordered By: Kavitha Auguste Referrals: Trino Crocker MD [Hospitalist] - 1-3 days (Dr. Crocker will have your pack moved in 3 days and will care for you further in the intermediate.) Maricarmen Meza MD [Primary Care Provider] - Discharge Diet: Usual diet Discharge Activity: Limit activity as instructed Patient Instructions: Epistaxis (ED) Activity Restrictions/Additional Instructions: Please return to the ER immediately for any of the signs or symptoms listed on your discharge instruction sheets, worsening/changing of your symptoms, you are not getting better as quickly as expected, or for ANY other cause or concerns. Your pack will need to come out in 3 days. The intermediate doctor, Dr. Crocker or whoever he designates can remove it. If for any reason they do not feel comfortable you are more than welcome to return here or can follow-up with Dr. Espinosa for removal and further management. Hold your aspirin and Eliquis until instructed further by Dr. Crocker. If you are still on Augmentin you do not have to start the amoxicillin that I have prescribed you but you need to be on either Augmentin or amoxicillin the entire time the pack is in your nose. Return to the ER for return of your nosebleed, blood going down the back of your throat, letting, or for any other cause for concern. Discharge Date/Time: 06/27/20 15:05 Coding Level of Care Code ED Process Trainer for [facility] Fwd Exam Comprehensive
[2020-06-27 13:16] VITALS: BP 165/108; PULSE 112; RESP 20; O2SAT 98; BMI 19.0
[2020-06-27] MEDS: oxymetazoline 0.05% Nasal Spray 15 mL 2 SPRAY NOSTRIL-B (13:30)
[2020-06-27 13:35] LABS: Basophils % 0.1 %; Eosinophils % 0.2 %; Hematocrit 30.1 % (42.0-52.0); Lymphocytes # 0.3 10^3/uL (0.8-4.8); Lymphocytes % 2.7 %; Mean Corpuscular HGB Conc 29.9 g/dL (30.0-36.0); Mean Corpuscular Hemoglobin 29.2 pg (28.0-34.0); Mean Corpuscular Volume 97.7 fL (80-94); Mean Platelet Volume 9.2 fL (7.4-10.4); Monocytes # 0.1 10^3/uL (0.2-0.9); Monocytes % 1.3 %; Neutrophils # 10.23 10^3/uL (1.8-7.7); Neutrophils % 94.9 %; Nucleated Red Blood Cells % 0 %; Platelet Count 352 10^3/cmm (130-400); Red Blood Count 3.08 10^6/uL (4.1-5.3); Red Cell Distribution Width 17.1 % (12.1-15.1); White Blood Count 10.8 10^3/uL (4.0-10.0)
[2020-06-27 13:50] LABS: INR 1.06 (0.8-1.2)
[2020-06-27 13:51] LABS: Partial Thromboplastin Time 31.2 SECONDS (23.9-36.7)
[2020-06-27 13:57] LABS: Alanine Aminotransferase 27 U/L (0-41); Albumin Level 3.4 g/dL (3.5-5.2); Alkaline Phosphatase 68 IU/L (40-130); Anion Gap 15.6 (5-19); Aspartate Amino Transferase 17 U/L (0-40); Blood Urea Nitrogen 74 mg/dL (8-23); Calcium 8.6 mg/dL (8.5-10.5); Carbon Dioxide 21 mmol/L (22-29); Chloride 106 mmol/L (98-107); Globulin 2.8 g/dL (1.3-4.6); Glucose 145 mg/dL (65-115); Osmolality Calculated 308 mOsm/kg (285-295); Potassium 5.6 mmol/L (3.5-5.1); Sodium 137 mmol/L (136-145); Total Bilirubin 0.2 mg/dL (0.15-1.2); Total Protein 6.2 g/dL (6.6-8.7)
[2020-06-27 14:11] VITALS: BP 171/103; PULSE 70; RESP 20; O2SAT 99
[2020-06-27] MEDS: amoxicillin 500 mg Capsule PO (14:29)
[2020-06-27 14:35] VITALS: BP 192/103; PULSE 70; RESP 20; O2SAT 98
== END 2020-06-27 15:05 | disposition home or self-care (01) ==
PROVIDERS: Family Medicine; Emergency Provider Emergency Medicine; PCP Family Medicine
DX: R04.0 Epistaxis (principal); Z79.01 Long term (current) use of anticoagulants; Z79.82 Long term (current) use of aspirin; I12.9 Hypertensive chronic kidney disease with stage 1 through stage 4 chronic kidney disease, or unspecified chronic kidney disease; N18.30 Chronic kidney disease, stage 3 unspecified; E78.5 Hyperlipidemia, unspecified
CPT/HCPCS: 12345; 30901; 36415; 80053; 85025; 85610; 85730; 99281; 99283

== ENCOUNTER 2020-07-07 18:50 | Inpatient (IN) | payer MEDICARE, SELFPAY ==
[2020-07-07] VITALS (8 sets, daily range): BP systolic 165–195; BP diastolic 92–100; PULSE 63–75; RESP 14–18; TEMP 36.3–37; O2SAT 94–99; BMI 20.3
--- NOTE | 2020-07-07 18:58 | XR_ITS ---
WS: [id number] Exam: XR chest 1V portable [id number] Date/Time of Exam: 07/07/2020 6:58 PM Reason For Exam: weakness Findings: Comparison 06/23/2020. Mild residual infiltrate remains in the right lung base. Probable residual bilateral pleural effusion in the posterior pulmonary gutters. Mild cardiac enlargement. Pulmonary vascularity is within normal limits. The mediastinum and bony thorax are intact. XR/XR chest 1V portable [id number] IMPRESSION: 1. Mild residual infiltrate in the right lung base. 2. Probable residual bilateral pleural effusions in the posterior pulmonary gut ters.
[2020-07-07 19:40] LABS: Basophils % 0.2 %; Hematocrit 23.3 % (42.0-52.0); Hemoglobin 6.7 g/dL (11.7-16.6); Lymphocytes # 0.3 10^3/uL (0.8-4.8); Lymphocytes % 5.7 %; Mean Corpuscular HGB Conc 28.8 g/dL (30.0-36.0); Mean Corpuscular Hemoglobin 29.3 pg (28.0-34.0); Mean Corpuscular Volume 101.7 fL (80-94); Mean Platelet Volume 9.8 fL (7.4-10.4); Monocytes # 0.2 10^3/uL (0.2-0.9); Monocytes % 2.5 %; Neutrophils # 5.49 10^3/uL (1.8-7.7); Neutrophils % 91.3 %; Nucleated Red Blood Cells % 0 %; Platelet Count 181 10^3/cmm (130-400); Red Blood Count 2.29 10^6/uL (4.1-5.3); Red Cell Distribution Width 17.8 % (12.1-15.1)
[2020-07-07] MEDS: piperacillin-tazobactam 3.375 GM in sodium chloride 0.9% (plus) 50 ML IV (19:43)
[2020-07-07 19:58] LABS: Lactic Sepsis W/Reflex 1.2 mmol/L (0.5-2.2)
--- NOTE | 2020-07-07 19:58 | ECG_ITS ---
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
[2020-07-07 19:59] LABS: Alanine Aminotransferase 14 U/L (0-41); Albumin Level 3.1 g/dL (3.5-5.2); Alkaline Phosphatase 70 IU/L (40-130); Anion Gap 12.7 (5-19); Aspartate Amino Transferase 11 U/L (0-40); Blood Urea Nitrogen 52 mg/dL (8-23); Calcium 8.3 mg/dL (8.5-10.5); Carbon Dioxide 23 mmol/L (22-29); Chloride 111 mmol/L (98-107); Globulin 2.3 g/dL (1.3-4.6); Glucose 160 mg/dL (65-115); Osmolality Calculated 309 mOsm/kg (285-295); Potassium 5.7 mmol/L (3.5-5.1); Sodium 141 mmol/L (136-145); Total Bilirubin 0.2 mg/dL (0.15-1.2); Total Protein 5.4 g/dL (6.6-8.7)
--- NOTE | 2020-07-07 20:12 | ED_ITS ---
HPI - General Adult General: Chief complaint: General Medical Stated complaint: LOW HEMOGLOBIN Time Seen by Provider: 07/07/20 18:53 Source: patient and EMS Mode of arrival: EMS Limitations: no limitations History of Present Illness: HPI narrative: Good is an 80-year-old male comes in from the retirement with report of low hemoglobin. I discussed the case with the patient and he states he has no idea why he is here. He states he has no symptoms or concerns or complaints. I was able to reach the patient's nurse practitioner in the retirement Toya Yen and she states that since coming home due to the Covid pandemic and inability to get to the patient he has had a Rhino Rocket that was placed 10 [address] still in place in his right nostril. They have been unable to remove this and nursing reports at times he had a small trickle of blood anteriorly but the patient adamantly denies any blood draining down the back of his throat. There is no reports of melanotic stools or bloody stools. Patient again has no complaints of chest pain, shortness of breath, weakness, blood draining from his nose from the front or down his throat. The nurse practitioner decided on an outpatient basis to get a set of laboratory results and his hemoglobin was low at 6.3 and because of this they had him transferred here. The patient has listed different types of anemia in his medical record and the patient is uncertain what caused these in the past. Associated symptoms: Deny chest pain, dyspnea, headache(s), nausea, rash, palpitations, syncope or vomiting Review of Systems Const: Denies: fever(s) Eyes: Denies: change in vision or blurry vision ENMT: Denies: throat pain, hoarseness or swelling of lips/tongue Card: Denies: chest pain, palpitations, syncope, pre-syncope or dyspnea on exertion Resp: Denies: dyspnea, productive cough, non-productive cough, wheezing, change in phlegm color or hemoptysis GI: Denies: abdominal pain, nausea, vomiting or diarrhea : Denies: flank pain, dysuria, urinary frequency or urinary urgency Musc: Denies: neck pain, back pain or extremity pain Skin/Breast: Denies: rash or pruritus Neuro: Denies: headache(s), numbness in extremities, weakness in extremities or dizziness Alberto/Lymph: Denies: easy bruising, easy bleeding, petechiae or purpura All/Imm: Denies: urticaria or throat swelling PFSH ED PFSH: Medical History Anemia Chronic kidney disease, stage III (moderate) CRI (chronic renal insufficiency) Diarrhea Dyslipidemia GERD (gastroesophageal reflux disease) Gout History of DVT (deep vein thrombosis) Hypertension Idiopathic parathyroidism Immunosuppression Inguinal hernia left 11/30/2016 Polyarteritis nodosa Skin cancer Vitamin D deficiency Surgical History H/O endoscopy History of hernia repair History of hip surgery Status post biopsy of kidney Family History Other Cancer Social History Smoking and tobacco status: never smoked Alcohol intake: never Marital status: Physical Exam Const: COMMON NORMALS: no acute distress, patient oriented x3, no limitations and alert GENERAL APPEARANCE: cooperative HENMT: COMMON NORMALS: normocephalic, atraumatic, external ears normal and EAC's normal HEAD & SCALP: normal to inspection, normocephalic and atraumatic FACE & SINUS: normal facial exam and face symmetric NOSE: Other nasal findings present (Right nare with Rhino Rocket in place with dried blood. No active bleeding.) EXTERNAL EAR: Yes external ears normal EXTERNAL AUDITORY CANAL: EAC's normal MOUTH: Normal oral and palatal mucosa present, lip normal, tongue normal and other (Posterior oropharynx visualized with no sign of fresh or dried blood in the posterior oropharynx.) Eye: COMMON NORMALS: Equal, round and reactive pupils present and conjunctivae normal GENERAL EYE: appearance normal, both eyes and all related structures ALIGNMENT: Yes alignment normal PERIORBITAL: periorbital findings normal EYELID: eyelids normal CONJUNCTIVA: Yes conjunctivae normal SCLERA: sclerae normal PUPIL: Yes Equal, round and reactive pupils present Neck/C-Spine: COMMON NORMALS: full ROM, no lymphadenopathy, supple, no meningeal signs and no JVD GENERAL: Yes normal visual inspection and Yes trachea midline Chest: COMMONS NORMALS: normal inspection of the chest and normal palpation of entire chest wall Resp: COMMON NORMALS: normal respiratory effort, No retractions, No use of a ccessory muscles and clear to auscultation bilaterally EFFORT & INSPECTION: Yes able to speak in complete sentences and Yes symmetric chest movement AUSCULTATION: clear to auscultation bilaterally, no crackles, no rales, no rhonchi and no wheezes Cardio: COMMON NORMALS: no JVD, regular rate, regular rhythm, S1 normal heart sound present and S2 normal heart sound present RATE: regular rate RHYTHM: regular rhythm HEART SOUNDS: S1 normal heart sound present, S2 normal heart sound present, no click, no gallops, no murmurs and no rubs GI: COMMON NORMALS: Soft to palpation and No hepatosplenomegaly present PALPATION: Yes Soft to palpation, No Tenderness to palpation present (GI), No Guarding due to palpation present (GI), No Rigid due to palpation, Yes No he patosplenomegaly present, No Hernia present, No Palpable mass present and No Pulsatile mass present : COMMON NORMALS: Yes no CVA tenderness BLADDER/KIDNEY EXAM: Yes no CVA tenderness Back/Pelvis: COMMON NORMALS: no CVA tenderness, thoracic and lumbar spine normal to inspection, no thoracic nor lumbar tenderness and thoraco-lumbar ROM normal Extremity: COMMON NORMALS: normal to inspection, full ROM, capillary refill normal, no joint enlargement, no clubbing, cyanosis or edema and no calf tenderness Neuro: COMMON NORMALS: patient oriented x3, CN's II-XII intact bilaterally, moves all extremities, no focal motor deficits and no sensory deficits noted SENSORIUM/ORIENTATION: Yes alert MENINGEAL SIGNS: Yes no meningeal signs SPEECH: speech normal Psych: COMMON NORMALS: mental status grossly normal, Normal thought process present, cooperative, normal affect, speech normal and activity/motor behavior normal SPEECH: Yes normal speech THOUGHT PROCESS: Normal thought process present Skin: COMMON NORMALS: no rashes or lesions noted, turgor normal, no jaundice, no petechiae and no mottling GENERAL SKIN EXAM: no rashes or lesions noted and turgor normal Course Vital Signs: Vital signs: Vital Signs Temperature 98.6 F 07/07/20 18:54 Pulse Rate 65 07/07/20 22:16 Respiratory Rate 16 07/07/20 22:16 Blood Pressure 165/96 07/07/20 22:16 Pulse Oximetry 94 07/07/20 22:16 MDM - General Adult MDM Narrative: Medical decision making narrative: Mr. Alegre is a nice 80-year-old male who comes in with anemia. It is uncertain what caused his anemia as looking through his old record he has had low hemoglobins in the past for various reasons. I cannot definitively say that this is coming from his nose as I see no evidence of drainage and the patient denies any drainage down the back of his throat. The patient was Hemoccult negative here. His EKG is normal but his troponin is elevated although lower than normal for him. I believe this is likely due to his renal insufficiency which is stable. I reviewed the case in full with Dr. Peraza who agrees to admit. I also contacted Dr. Espinosa and he is agreeable to consult in the a.m.. The patient has had no bleeding while he is here in the department. The patient has been on antibiotics throughout his time of the packing in place but is no longer on Eliquis. I reviewed with Dr. Espinosa and he wants to leave the packing in at this time and he will remove tomorrow and evaluate them. Lab Data: Attestation: I reviewed the patient's lab results. Labs: Lab Results 07/07/20 07/07/20 07/07/20 Range/Units 19:20 19:20 19:20 WBC 6.0 (4.0-10.0) 10^3/ uL RBC 2.29 L (4.1-5.3) 10^6/u L Hgb 6.7 L (11.7-16.6) g/dL Hct 23.3 L (42.0-52.0) % MCV 101.7 H (80-94) fL MCH 29.3 (28.0-34.0) pg MCHC 28.8 L (30.0-36.0) g/dL RDW 17.8 H (12.1-15.1) % Plt Count 181 (130-400) 10^3/c mm MPV 9.8 (7.4-10.4) fL Neut % (Auto) 91.3 % Lymph % (Auto) 5.7 % [place] % (Auto) 2.5 % Eos % (Auto) 0.0 % Baso % (Auto) 0.2 % Neut # (Auto) 5.49 (1.8-7.7) 10^3/u L Lymph # (Auto) 0.3 L (0.8-4.8) 10^3/u L [place] # (Auto) 0.2 (0.2-0.9) 10^3/u L Eos # (Auto) 0.0 (0.0-0.8) 10^3/u L Baso # (Auto) 0.0 (0.0-0.1) 10^3/u L Nucleated RBC % (a uto) 0 % Nucleated RBCs # 0.0 /100WBC PT 14.50 (12.1-14.9) SECO NDS INR 1.09 (0.8-1.2) APTT 32.5 (23.9-36.7) SECO NDS Sodium 141 (136-145) mmol/L Potassium 5.7 H (3.5-5.1) mmol/L Chloride 111 H (98-107) mmol/L Carbon Dioxide 23 (22-29) mmol/L Anion Gap 12.7 (5-19) BUN 52 H (8-23) mg/dL Creatinine 3.1 H (0.7-1.2) mg/dL GFR Calculation Not Reportable Glucose 160 H (65-115) mg/dL Calculated Osmolal ity 309 H (285-295) mOsm/k g Lactic Acid (0.5-2.2) mmol/L Calcium 8.3 L (8.5-10.5) mg/dL Total Bilirubin 0.2 (0.15-1.2) mg/dL AST 11 (0-40) U/L ALT 14 (0-41) U/L Alkaline Phosphata se 70 (40-130) IU/L Troponin T Baselin e (0-15) ng/L Total Protein 5.4 L (6.6-8.7) g/dL Albumin 3.1 L (3.5-5.2) g/dL Globulin 2.3 (1.3-4.6) g/dL Blood Type Rho(D) Type Antibody Screen 07/07/20 07/07/20 07/07/20 Range/Units 19:20 19:20 19:20 WBC (4.0-10.0) 10^3/ uL RBC (4.1-5.3) 10^6/u L Hgb (11.7-16.6) g/dL Hct (42.0-52.0) % MCV (80-94) fL MCH (28.0-34.0) pg MCHC (30.0-36.0) g/dL RDW (12.1-15.1) % Plt Count (130-400) 10^3/c mm MPV (7.4-10.4) fL Neut % (Auto) % Lymph % (Auto) % [place] % (Auto) % Eos % (Auto) % Baso % (Auto) % Neut # (Auto) (1.8-7.7) 10^3/u L Lymph # (Auto) (0.8-4.8) 10^3/u L [place] # (Auto) (0.2-0.9) 10^3/u L Eos # (Auto) (0.0-0.8) 10^3/u L Baso # (Auto) (0.0-0.1) 10^3/u L Nucleated RBC % (a uto) % Nucleated RBCs # /100WBC PT (12.1-14.9) SECO NDS INR (0.8-1.2) APTT (23.9-36.7) SECO NDS Sodium (136-145) mmol/L Potassium (3.5-5.1) mmol/L Chloride (98-107) mmol/L Carbon Dioxide (22-29) mmol/L Anion Gap (5-19) BUN (8-23) mg/dL Creatinine (0.7-1.2) mg/dL GFR Calculation Glucose (65-115) mg/dL Calculated Osmolal ity (285-295) mOsm/k g Lactic Acid 1.2 (0.5-2.2) mmol/L Calcium (8.5-10.5) mg/dL Total Bilirubin (0.15-1.2) mg/dL AST (0-40) U/L ALT (0-41) U/L Alkaline Phosphata se (40-130) IU/L Troponin T Baselin e 116 H* (0-15) ng/L Total Protein (6.6-8.7) g/dL Albumin (3.5-5.2) g/dL Globulin (1.3-4.6) g/dL Blood Type A Positive Rho(D) Type Positive Antibody Screen Negative Imaging Data^: CXR: Attestation: I personally reviewed and interpreted this imaging study as follows: My impression: No acute cardiopulmonary findings. EKG Data^: EKG 1: Attestation: I personally reviewed and interpreted this EKG as follows: EKG interpretation date: 07/07/20 EKG interpretation time: 20:05 Interpretation: Normal sinus rhythm at 72 beats a minute, normal axis, no blocks, normal intervals. EKG 2: Attestation: I personally reviewed and interpreted this EKG as follows: EKG interpretation date: 07/07/20 EKG interpretation time: 22:09 Interpretation: Normal sinus rhythm at 66 beats a minute, no blocks, normal intervals, no acute ST or T wave changes. Discharge Plan Discharge Patient Disposition: Placed in Observation Admit Provider: Yola Peraza Clinical Impression: Epistaxis Anemia Qualifiers: Anemia type: unspecified type Qualified Code(s): D64.9 - Anemia, unspecified Condition: Stable Referrals: Maricarmen Meza MD [Primary Care Provider] - Discharge Date/Time: 07/07/20 22:26 Coding Level of Care Code ED Glass Blowing Instructor for Chg Fwd Exam Comprehensive
[2020-07-07 20:22] LABS: INR 1.09 (0.8-1.2)
[2020-07-07 20:23] LABS: Partial Thromboplastin Time 32.5 SECONDS (23.9-36.7)
[2020-07-07] MEDS: sodium chloride 0.9% 1,000 ML 100 ML IV (20:51)
[2020-07-07 20:54] LABS: Troponin(5th) Baseline 116 ng/L (0-15)
[2020-07-07 21:21] LABS: Add Urine Microscopic? YES; Bilirubin Urine Neg (Negative); Blood Urine Neg (Negative); Glucose Urine UA Norm (Normal); Ketones Urine Negative (Negative); Leukocyte Esterase Urine Negative (Negative); Nitrate Urine Negative (Negative); Protein Urine 3+ (Negative); Specific Gravity, Urine 1.015 (1.005-1.030); Urine Appearance Clear (CLEAR); Urine Color Yellow (Yellow); Urobilinogen Urine Norm (Negative); pH Urine 5 (5-7)
[2020-07-07 21:24] LABS: RBC Urine 0-4 /hpf (0-2)
[2020-07-07 21:25] LABS: Add Urine Culture? Yes; Bacteria Urine TRACE /hpf; Fine Granular Casts Urine 0-4 /lpf; Squamous Epithelial Cell Urine 0-4 /hpf (0-5); WBC Urine 0-4 /hpf (0-5)
[2020-07-07 21:56] LABS: Troponin 5 2HR Delta 0.4 ABS# (0-10)
[2020-07-07 21:57] LABS: SARS Covid-2 Antigen Negative (Negative)
[2020-07-07 21:58] LABS: Troponin 5 2HR 116.4 ng/L (0-15)
--- NOTE | 2020-07-07 21:58 | ECG_ITS ---
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
--- NOTE | 2020-07-07 23:18 | P.HP_ITS ---
Providers/Chief Complaint Admitting Physician: Yola Peraza MD Primary Care Provider: Maricarmen Meza MD Chief Complaint: LOW HEMOGLOBIN History of Present Illness Good Alegre is a 80 year old male polyarteritis on cellcept until recently and prednisone 20mg po qd, chronic renal failure,anemia, h/o DVT on Eliquis (uncertain when last taken), HTN, recently admitted at [facility] for COVID PNA between 06/15 to 06/18 when he was treated with remdisivir, then again 06/20 to 06/24 for bacterial pneumonia as well as cellulitis left upper extremity treated with zosyn/vanc transitioined to Augmentin on discharge to SNF. Discharge creatinine 3.6. Discharge hemoglobin 8.7. for h/o DVT, he was continued on Eliquis 5mg po BID. Then returned to ER on 06/27 with nose bleed for which it appears ASA and Eliquis were held at SNF. A rhinorocket was inserted at the ER, bleeding controlled and patient discharged with recommendation to continue ppx antibiotics. This still remains in place. He is sent from SNF to Er today as they have been unable to remove this and nursing reports at times he had a small trickle of blood anteriorly, however patient denies any bleeding at this time. No blood was noted in the oropharynx. Additionally he had planned follow up labs today and Hb was noted to have dropped to 6.3, for which he was sent over. Patient is unable to provide me with any clear details of presentation at this time, which may be a combination of hearing problems and ?? cognitive decline. From review of past notes, patient was admitted to [facility] in may 2020 as well with Hb of 4, which was thought to be related to cellcept toxicity. Stool for occult blood was negative at the time. Haptoglobin was mildly elevated, iron panel not suggestive of iron deficiency anemia, ferritin 326, LDH mildly elevated,free kappa/lambda ratio was at 1.08. He had recently had a colonoscopy and EGD, per Dr. Linn's note from 05/19 had a few polyps found, had severe esophagitis, no significant ulcers, repeat EGD planned for a month, however it appears this was unable to be done 2/2 patient developing COVID. Today, labs in the ER are notable for a hemoglobin of 6.7, lasted On 1017. No leukocytosis. Platelet count within normal range, hyperkalemia 5.7, which appears to be chronic, going back to at least mid June, creatinine at baseline of 3.1, elevated troponin T baseline of 116, with unremarkable delta of 0.4, in fact troponins trending down from previous admission when it was at 262. LFTs are normal including normal T bili. Patient denies any current complaints of chest pain, no acute ST-T wave changes on EKG. Rapid Covid antigen is negative today. Review of Systems General: Reports: ROS unobtainable due to medical condition Medications/Allergies Home Medications Medication Instructions Recorded Confirmed Last Taken Type ondansetron HCl 4 mg tablet 4 mg PO BID PRN #30 tab 10/18/19 07/07/20 Unknown Rx cyanocobalamin (vitamin B-12) 1,000 mcg PO DAILY 06/15/20 07/07/20 07/07/20 Hist ory [Vitamin B-12] mirtazapine 30 mg PO BEDTIME 06/15/20 07/07/20 07/06/20 History ascorbic acid (vitamin C) [Vitamin 500 mg PO BID #60 tab 06/18/20 07/07/20 07/07/20 Rx C] sucralfate [Carafate] 1 gm PO BID #60 tab 06/18/20 07/07/20 07/07/20 Rx zinc gluconate 50 mg PO DAILY #30 tab 06/18/20 07/07/20 07/07/20 Rx fluticasone propion-salmeterol 1 puff INHALATION BID.RESPIRATORY 06/24/20 07/07/20 07/07/20 Rx [Advair Diskus] #1 ea prednisone 20 mg PO DAILY #30 tab 06/24/20 07/07/20 07/07/20 Rx acetaminophen [Tylenol] 325 mg PO PRN PRN 07/07/20 07/07/20 Unknown History albuterol sulfate [ProAir HFA] 1 puff INHALATION QID 07/07/20 07/07/20 07/07/20 History bisacodyl 10 mg MT DAILY PRN 07/07/20 07/07/20 Unknown History levofloxacin See Rx Instructions .ROUTE .COMPLEX 07/07/20 07/07/20 07/06/20 History magnesium hydroxide [Milk of 400 mg PO DAILY PRN 07/07/20 07/07/20 Unknown History Magnesia] pravastatin 20 mg PO BEDTIME 07/07/20 07/07/20 07/06/20 History sodium phosphates [Enema 118 ml MT DAILY PRN 07/07/20 07/07/20 Unknown History Disposable] tuberculin PPD [Tubersol] See Rx Instructions .ROUTE .COMPLEX 07/07/20 07/07/20 07/06/20 History Allergies Allergy/AdvReac Type Severity Reaction Status Date / Time No Known Allergies Allergy Verified 05/17/20 02:56 PFSH Acute PFSH: Medical History Anemia Chronic kidney disease, stage III (moderate) CRI (chronic renal insufficiency) Diarrhea Dyslipidemia GERD (gastroesophageal reflux disease) Gout History of DVT (deep vein thrombosis) Hypertension Idiopathic parathyroidism Immunosuppression Inguinal hernia left 11/30/2016 Polyarteritis nodosa Skin cancer Vitamin D deficiency Surgical History H/O endoscopy History of hernia repair History of hip surgery Status post biopsy of kidney Family History Other Cancer Social History Smoking and tobacco status: never smoked Alcohol intake: never Marital status: Vitals/I&O/Wt Last Vital Signs Temp 97.5 F L 07/07/20 22:15 Pulse 65 07/07/20 22:16 Resp 16 07/07/20 22:16 BP 165/96 07/07/20 22:16 Pulse Ox 94 07/07/20 22:16 Weight last 48 hrs Weight 68.039 kg Physical Exam Narrative: EXAM NARRATIVE: GENERAL: Awake, alert, does not consistently answer questions pertaining to orientation, in no acute distress. [] HEENT: Normocephalic, atraumatic, PERRLA. [] CHEST: Clear to auscultation bilaterally. [] CVS: S1, S2 normal. No murmur, rubs, gallops. Peripheral pulses palpable. [] ABDOMEN: Soft, nontender. Nondistended. Bowel sounds heard. [] NEUROVASCULAR: Awake, alert. Moves all extremities while laying in bed. [] EXTREMITIES: No edema. [] Data : 07/07/20 19:20 07/07/20 19:20 A&P Assessment and plan (1) Anemia: Status: Chronic Qualifiers: Anemia type: unspecified type Qualified Code(s): D64.9 - Anemia, unspecified (2) Epistaxis: Status: Acute (3) Chronic kidney disease, stage III (moderate): Status: Chronic Qualifiers: Chronic kidney disease stage 3 subtype: unspecified whether 3a or 3b Qualified Code(s): N18.30 - Chronic kidney disease, stage 3 unspecified (4) Polyarteritis nodosa: Status: Chronic (5) Immunosuppression: Status: Acute (6) DVT (deep venous thrombosis): Status: Acute Qualifiers: DVT location: lower extremity Affected thrombotic vein of extremity: unspecified vein of extremity Chronicity: chronic Laterality: unspecified laterality Qualified Code(s): I82.509 - Chronic embolism and thrombosis of unspecified deep veins of unspecified lower extremity Additional A&P Information Admit to med/surg # Anemia: Recent medical history as noted above in HPI Patient has h/o anemia dating back to at least May 2020 from which time w/up was notable for negative FOBT, haptoglobin within normal limits, LDH within normal limits, reticulocyte count 0.7, iron panel not suggestive of iron deficiency anemia, ferritin 326, LDH mildly elevated, normal kappa/lambda ratio, Vitamin B12, folate levels within normal limits, per notes review, EGD and colonoscopy with few polyps found, had severe esophagitis, no significant ulcers. Overall anemia was thought to be related to Cellcept, which has since been discontinued. More recently, he was noted to have epistaxis for which he presented to the ER At this point, anemia may be multifactorial related to underlying CKD, Cellcept until recently, recent blood loss ChecK FOBT, iron panel, retic index. Appears may have been planned for repeat EGD at some point. patient has been ordered for 3 units transfusion from ER, recheck with am labs continue Protonix # Recent epistaxis, no active bleeding currently Still has rhino rocket in place which was placed on 06/27 Dr. Auguste has contacted Dr. Espinosa for removal of the same, patient will be assessed in the morning In the interim, was recommended to continue Zosyn # CKD, at baseline # ZIMMER: off cellcept since 05/2020, continue home dose of Prednisone at 20mg po qd # Hyperkalemia: no acute changes on EKG, appears to be somehwta chronic, will monitor with am labs, if trending up, will order insulin/dextrose and Kayexalate # h/o DVT: last venous duplex on 06/20 with old DVT in right CFV, femoral and popliteal veins. No evidence of acute DVT. Patient appears to have been off Eliquis since 06/27 when he had the nose bleed. Continue to hold given anemia, planned removal of rhinorocket tomorrow. Code status: AND DVT ppx: Contraindicated currently Attestations Medical Necessity Statement*: Observation admission for evaluation and correction of anemia, ENT evaluation for retained rhino rocket and epistaxis Coding Level of Care Code Acute Call Or Contact Centre Team Leader for Chg Fwd Diagnoses Anemia D64.9 Anemia type: unspecified type Epistaxis R04.0 Chronic kidney disease, stage III (moderate) N18.30 Chronic kidney disease stage 3 subtype: unspecified whether 3a or 3b Polyarteritis nodosa M30.0 Immunosuppression D89.9 DVT (deep venous thrombosis) I82.509 DVT location: lower extremity Affected thrombotic vein of extremity: unspecified vein of extremity Chronicity: chronic Laterality: unspecified laterality
--- NOTE | 2020-07-07 23:43 | PC.PHAR ---
Zosyn is dosed at 3.375gm IVPB every 8 hours on basis of creatinine clearance of 19.5, each dose to be infused over 4 hours per extended infusion protocol.
[2020-07-08] VITALS (11 sets, daily range): BP systolic 168–202; BP diastolic 85–106; PULSE 64–94; RESP 14–20; TEMP 36.3–37.9; O2SAT 90–98
--- NOTE | 2020-07-08 00:54 | PC.NURSE ---
Telemetry order was placed, telemetry was not available at this time, physician notified.
[2020-07-08] MEDS: sodium chloride 0.9% (100 ml) 100 ML 10 ML (01:31)
--- NOTE | 2020-07-08 01:58 | ECG_ITS ---
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
[2020-07-08] MEDS: amlodipine 10 mg Tablet PO (02:11)
[2020-07-08 02:50] LABS: Basophils % 0.3 %; Eosinophils % 0.3 %; Hematocrit 27.3 % (42.0-52.0); Lymphocytes # 0.7 10^3/uL (0.8-4.8); Lymphocytes % 11.3 %; Mean Corpuscular HGB Conc 29.3 g/dL (30.0-36.0); Mean Corpuscular Hemoglobin 29.9 pg (28.0-34.0); Mean Corpuscular Volume 101.9 fL (80-94); Monocytes # 0.3 10^3/uL (0.2-0.9); Monocytes % 5.3 %; Neutrophils # 5.25 10^3/uL (1.8-7.7); Neutrophils % 82.5 %; Nucleated Red Blood Cells % 0 %; Platelet Count 179 10^3/cmm (130-400); Red Blood Count 2.68 10^6/uL (4.1-5.3); Red Cell Distribution Width 18.6 % (12.1-15.1); White Blood Count 6.4 10^3/uL (4.0-10.0)
--- NOTE | 2020-07-08 03:12 | PC.NURSE ---
WHILE THE PATIENT WAS RECEIVING BLOOD, HIS BLOOD PRESSURES WERE NOTED TO BE INCREASING. THE HOSPITALIST FINANCIAL RETIREMENT PLAN SPECIALIST WAS NOTIFIED THE PATIENT'S BLOOD PRESSURE AT 0150 WAS 202/106. ORDERS WERE PLACED FOR PATIENT TO GET 10 MG OF AMLODIPINE PO NOW AND RECHECK BLOOD PRESSURE ONE HOUR AFTER GIVING. ONE HOUR AFTER GIVING THE AMLODIPINE, THE BLOOD PRESSURE IS 188/90. PHYSICIAN NOTIFIED AND SHE STATES TO RECHECK BLOOD PRESSURE AGAIN IN ONE HOUR, IF STILL HIGH MORE PO MEDICATIONS WILL BE GIVEN.
[2020-07-08 03:21] LABS: Ferritin 433 ng/mL (30-400); Iron 47 ug/dL (59-158)
[2020-07-08 03:22] LABS: Alanine Aminotransferase 14 U/L (0-41); Albumin Level 3.1 g/dL (3.5-5.2); Alkaline Phosphatase 68 IU/L (40-130); Anion Gap 15.1 (5-19); Aspartate Amino Transferase 11 U/L (0-40); Blood Urea Nitrogen 51 mg/dL (8-23); Calcium 8.2 mg/dL (8.5-10.5); Carbon Dioxide 21 mmol/L (22-29); Chloride 111 mmol/L (98-107); Globulin 2.5 g/dL (1.3-4.6); Glucose 94 mg/dL (65-115); Osmolality Calculated 307 mOsm/kg (285-295); Potassium 5.1 mmol/L (3.5-5.1); Sodium 142 mmol/L (136-145); Total Bilirubin 0.3 mg/dL (0.15-1.2); Total Protein 5.6 g/dL (6.6-8.7)
[2020-07-08] MEDS: piperacillin-tazobactam 3.375 GM in sodium chloride 0.9% (plus) 50 ML IV ×2 (03:27→11:17)
[2020-07-08 03:38] LABS: Troponin 5 6HR 115.4 ng/L (0-15); Troponin 5 6HR Delta -0.6 ng/L (0-12)
[2020-07-08] MEDS: hyDRALAzine 10 mg Tablet PO ×3 (04:22→15:44)
[2020-07-08] MEDS: predniSONE 10 mg Tablet 20 MG PO (08:41)
[2020-07-08] MEDS: pantoprazole DR 40 mg Tablet PO (08:41)
[2020-07-08] MEDS: zinc gluconate 50 mg Tablet PO (08:41)
[2020-07-08] MEDS: ascorbic acid 500 mg Tablet PO ×2 (08:41→18:28)
[2020-07-08] MEDS: sucralfate 1 gm Tablet PO ×2 (08:42→18:28)
[2020-07-08] MEDS: albuterol 8 gm MDI 1 PUFF INHALATION ×2 (09:30→12:34)
--- NOTE | 2020-07-08 13:56 | PM.CONSULT ---
Providers/Reason For Consult Consulting Physican/Specialty*: Aniceto Espinosa MD Otolaryngology/Head & Neck Surgery Reason for Consult*: Epistaxis Requesting Physcian: Kavitha Wright Attending Physician: Trino Crocker MD Primary Care Provider: Maricarmen Meza MD History of Present Illness History of Present Illness Good Alegre is a 80 year old male with a h/o right sided epistaxis after being placed on Eloquis and ASA for a DVT. The patient presented to the [facility] 10 days ago and had a Rhinorocket placed in the right nasal cavity. The patient was admitted for a transfusion last night and I was consulted to manage the patient's epistaxis. The patient c/o discomfort from the right side of his nose, and requests removal of the nasal packing. He is o/w without c/o. Review of Systems General: Reports: 10 or more systems reviewed and unremarkable except in HPI and below Meds/Allergies Home Medications and Allergies Home Medications Medication Instructions Recorded Confirmed Last Taken Type ondansetron HCl 4 mg tablet 4 mg PO BID PRN #30 tab 10/18/19 07/07/20 Unknown Rx cyanocobalamin (vitamin B-12) 1,000 mcg PO DAILY 06/15/20 07/07/20 07/07/20 History [Vitamin B-12] mirtazapine 30 mg PO BEDTIME 06/15/20 07/07/20 07/06/20 History ascorbic acid (vitamin C) [Vitamin 500 mg PO BID #60 tab 06/18/20 07/07/20 07/07/20 Rx C] sucralfate [Carafate] 1 gm PO BID #60 tab 06/18/20 07/07/20 07/07/20 Rx zinc gluconate 50 mg PO DAILY #30 tab 06/18/20 07/07/20 07/07/20 Rx fluticasone propion-salmeterol 1 puff INHALATION BID.RESPIRATORY 06/24/20 07/07/20 07/07/20 Rx [Advair Diskus] #1 ea prednisone 20 mg PO DAILY #30 tab 06/24/20 07/07/20 07/07/20 Rx acetaminophen [Tylenol] 325 mg PO PRN PRN 07/07/20 07/07/20 Unknown History albuterol sulfate [ProAir HFA] 1 puff INHALATION QID 07/07/20 07/07/20 07/07/20 History bisacodyl 10 mg [place] DAILY PRN 07/07/20 07/07/20 Unknown History levofloxacin See Rx Instructions .ROUTE .COMPLEX 07/07/20 07/07/20 07/06/20 History magnesium hydroxide [Milk of 400 mg PO DAILY PRN 07/07/20 07/07/20 Unknown History Magnesia] pravastatin 20 mg PO BEDTIME 07/07/20 07/07/20 07/06/20 History sodium phosphates [Enema 118 ml [place] DAILY PRN 07/07/20 07/07/20 Unknown History Disposable] tuberculin PPD [Tubersol] See Rx Instructions .ROUTE .COMPLEX 07/07/20 07/07/20 07/06/20 History Allergies Allergy/AdvReac Type Severity Reaction Status Date / Time No Known Allergies Allergy Verified 05/17/20 02:56 Current Medications Current Medications Generic Name Dose Route Start Last Admin Trade Name Freq PRN Reason Stop Dose Admin Albuterol Sulfate 1 puff 07/08/20 09:00 07/08/20 12:34 Ventolin INHALATION 1 puff QID BLOSSOM Administration Amlodipine Besylate 10 mg 07/08/20 02:05 07/08/20 02:11 Norvasc PO 10 mg DAILY BLOSSOM Administration Ascorbic Acid 500 mg 07/08/20 09:00 07/08/20 08:41 Vitamin C PO 500 mg BID BLOSSOM Administration Hydralazine HCl 10 mg 07/08/20 04:00 07/08/20 08:41 Apresoline PO 10 mg TID BLOSSOM Administration Piperacillin Sod/Tazobactam 50 mls @ 12.5 mls/hr 07/08/20 03:00 07/08/20 11:17 Sod 3.375 gm/ Sodium Chloride IV 12.5 mls/hr Q8H BLOSSOM Administration Protocol As Directed Pantoprazole Sodium 40 mg 07/08/20 09:00 07/08/20 08:41 Protonix PO 40 mg DAILY BLOSSOM Administration Prednisone 20 mg 07/08/20 09:00 07/08/20 08:41 Prednisone PO 20 mg DAILY BLOSSOM Administration Fluticasone/Salmeterol 1 puff 07/08/20 08:00 07/08/20 08:00 Advair Diskus 250-50 INHALATION 1 puff BID.RESPIRATORY BLOSSOM Administration Sucralfate 1 gm 07/08/20 09:00 07/08/20 08:42 Carafate PO 1 gm BID BLOSSOM Administration Zinc Gluconate 50 mg 07/08/20 09:00 07/08/20 08:41 Zinc Gluconate PO 50 mg DAILY BLOSSOM Administration PFSH Acute PFSH: Medical History Anemia Chronic kidney disease, stage III (moderate) CRI (chronic renal insufficiency) Diarrhea Dyslipidemia GERD (gastroesophageal reflux disease) Gout History of DVT (deep vein thrombosis) Hypertension Idiopathic parathyroidism Immunosuppression Inguinal hernia left 11/30/2016 Polyarteritis nodosa Skin cancer Vitamin D deficiency Surgical History H/O endoscopy History of hernia repair History of hip surgery Status post biopsy of kidney Family History Other Cancer Social History Smoking and tobacco status: never smoked Alcohol intake: never Marital status: Vitals/I&O/Wt Last Vital Signs Temp 97.4 F L 07/08/20 11:16 Pulse 76 07/08/20 12:34 Resp 17 07/08/20 12:34 BP 168/90 07/08/20 11:16 Pulse Ox 98 07/08/20 12:34 07/07/20 07/08/20 07/08/20 22:59 06:59 14:59 Intake Total 510 / 510 1100 / 1100 Output Total 450 / 450 Balance 60 / 60 1100 / 1100 Weight last 48 hrs Weight 68.039 kg Physical Exam HENMT: COMMON NORMALS: atraumatic, external ears normal and Normal external nose present HEAD & SCALP: normal to inspection and atraumatic FACE & SINUS: normal facial exam NOSE: Normal external nose present and Other nasal findings present (There is an anterior nasal pack in place in the right nasal cavity) EXTERNAL EAR: Yes external ears normal MOUTH: Normal oral and palatal mucosa present Eye: COMMON NORMALS: EOMs intact bilaterally and conjunctivae normal GENERAL EYE: appearance normal, both eyes and all related structures CONJUNCTIVA: Yes conjunctivae normal Neck/C-Spine: COMMON NORMALS: no lymphadenopathy GENERAL: Yes normal visual inspection and Yes trachea midline Data Micro: Micro: Microbiology 07/08/20 04:45 Occult Blood (FIT) - Final Stool Routine Col lection A&P Additional A&P Information Impression: Epistaxis, controlled Plan: - Nasal packing removed - I recommend Afrin 4 sprays QID x 4 days, then change to nasal saline spray 2 sprays/nostril TID + Saline gel to the nasal septum TID indefinitely - If the patient is stable for 48 hours, consider restarting his anticoagulants - I will consider surgical intervention if his nasal bleeding recurs - The patient is to f/u with Dr. Espinosa in one week Consult Attestations Medical Necessity Statement: I was consulted for assistance with the patient's epistaxis Procedures Procedure Narrative Procedure Note: verbal informed consent was obtained; the packing was removed from the patient's right nasal cavity without difficulty; there was no recurrence of the patient's bleeding; the patient tolerated the procedure well. Coding Level of Care Code Acute Body Art Technician for Elizabeth Ruiz
--- NOTE | 2020-07-08 14:35 | P.PN_ITS ---
Subjective Subjective: Interval history: History and physical was reviewed. Patient without any significant complaints. He believes the bleeding is stopped. I visited with him this morning as well as this afternoon. ENT has just been in and removed his packing. Medications: Reviewed: Yes Vitals/I&O/Wt Last Vital Signs Temp 97.4 F L 07/08/20 11:16 Pulse 76 07/08/20 12:34 Resp 17 07/08/20 12:34 BP 168/90 07/08/20 11:16 Pulse Ox 98 07/08/20 12:34 07/07/20 07/08/20 07/08/20 22:59 06:59 14:59 Intake Total 510 / 510 1100 / 1100 Output Total 450 / 450 Balance 60 / 60 1100 / 1100 Weight last 48 hrs Weight 68.039 kg Physical Exam Narrative: EXAM NARRATIVE: General exam no apparent distress HEENT: No evidence of bleeding currently Cardiovascular regular rate and rhythm without murmur Lungs clear Abdomen is soft with positive bowel sounds Extremities no cyanosis clubbing or edema Data : 07/08/20 01:53 07/08/20 01:53 Micro: Microbiology 07/08/20 04:45 Occult Blood (FIT) - Final Stool Routine Collection A&P Assessment and plan (1) Anemia: Hemoglobin increased to 8 from 6.7 following transfusion of 1 unit packed red blood cell Primarily secondary to epistaxis but multifactorial with autoimmune disease certainly contributing as well as chronic kidney disease. Status: Chronic Qualifiers: Anemia type: unspecified type Qualified Code(s): D64.9 - Anemia, unspecified (2) Epistaxis: Resolved. Nasal packing removed, and no evidence of bleeding for the moment Addition of Afrin Repeat CBC tomorrow Has nasal packing has been removed I do not believe there is any further indication for Zosyn. Status: Acute (3) Chronic kidney disease, stage III (moderate): Appears to be stable Status: Chronic Qualifiers: Chronic kidney disease stage 3 subtype: unspecified whether 3a or 3b Qualified Code(s): N18.30 - Chronic kidney disease, stage 3 unspecified (4) Polyarteritis nodosa: Currently on prednisone Status: Chronic (5) Immunosuppression: Status: Acute (6) DVT (deep venous thrombosis): Anticoagulation held secondary to epistaxis Status: Acute Qualifiers: Affected thrombotic vein of extremity: unspecified vein of extremity Chronicity: chronic DVT location: lower extremity Laterality: unspecified laterality Qualified Code(s): I82.509 - Chronic embolism and thrombosis of unspecified deep veins of unspecified lower extremity Additional A&P Information Allow natural SCDs for DVT prophylaxis secondary to bleeding Change to regular admission. Packing has just really been removed and he needs continued follow-up secondary to severe life-threatening nosebleeding requiring transfusion. If he is stable tomorrow he can be discharged to the nursing facility. Attestations Medical Necessity Statement*: Needs continued hospitalization for close monitoring of hemoglobin secondary to recurrent epistaxis, life-threatening requiring transfusion. Coding Level of Care Code Acute Box Finisher for [facility] Fwd Diagnoses Anemia D64.9 Anemia type: unspecified type Epistaxis R04.0 Chronic kidney disease, stage III (moderate) N18.30 Chronic kidney disease stage 3 subtype: unspecified whether 3a or 3b Polyarteritis nodosa M30.0 Immunosuppression D89.9 DVT (deep venous thrombosis) I82.509 Affected thrombotic vein of extremity: unspecified vein of extremity Chronicity: chronic DVT location: lower extremity Laterality: unspecified laterality
[2020-07-08] MEDS: oxymetazoline 0.05% Nasal Spray 15 mL 4 SPRAY NOSTRIL-R (14:37)
[2020-07-08] MEDS: ondansetron 2 mg/ML SDV 2 mL 4 MG IVP (19:51)
[2020-07-09] VITALS: BP 190/96; PULSE 83; RESP 20; TEMP 37.7; O2SAT 97
--- NOTE | 2020-07-09 02:25 | PC.NURSE ---
Blood pressure elevated. Nurse notified.
[2020-07-09 04:00] VITALS: BP 170/91; PULSE 82; RESP 14; TEMP 36.3; O2SAT 95
[2020-07-09 05:24] LABS: Basophils % 0.3 %; Hematocrit 27.7 % (42.0-52.0); Hemoglobin 8.2 g/dL (11.7-16.6); Lymphocytes # 0.3 10^3/uL (0.8-4.8); Lymphocytes % 4.6 %; Mean Corpuscular HGB Conc 29.6 g/dL (30.0-36.0); Mean Corpuscular Hemoglobin 29.4 pg (28.0-34.0); Mean Corpuscular Volume 99.3 fL (80-94); Mean Platelet Volume 9.5 fL (7.4-10.4); Monocytes # 0.4 10^3/uL (0.2-0.9); Monocytes % 5.1 %; Neutrophils # 6.17 10^3/uL (1.8-7.7); Neutrophils % 89.6 %; Nucleated Red Blood Cells % 0 %; Platelet Count 151 10^3/cmm (130-400); Red Blood Count 2.79 10^6/uL (4.1-5.3); Red Cell Distribution Width 19.4 % (12.1-15.1); White Blood Count 6.9 10^3/uL (4.0-10.0)
[2020-07-09 05:45] LABS: Anion Gap 15.5 (5-19); Blood Urea Nitrogen 51 mg/dL (8-23); Calcium 8.1 mg/dL (8.5-10.5); Carbon Dioxide 20 mmol/L (22-29); Chloride 110 mmol/L (98-107); Glucose 103 mg/dL (65-115); Osmolality Calculated 304 mOsm/kg (285-295); Potassium 5.5 mmol/L (3.5-5.1); Sodium 140 mmol/L (136-145)
[2020-07-09] MEDS: predniSONE 10 mg Tablet 20 MG PO (08:54)
[2020-07-09] MEDS: sucralfate 1 gm Tablet PO (08:54)
[2020-07-09] MEDS: pantoprazole DR 40 mg Tablet PO (08:54)
[2020-07-09] MEDS: amlodipine 10 mg Tablet PO (08:54)
[2020-07-09] MEDS: hyDRALAzine 10 mg Tablet PO (08:55)
[2020-07-09] MEDS: albuterol 8 gm MDI 1 PUFF INHALATION ×2 (09:02→12:19)
[2020-07-09 09:25] VITALS: BP 183/92; PULSE 90; RESP 15
--- NOTE | 2020-07-09 10:53 | PC.CHAP ---
Pastoral Care Encounter/Spiritual Assessment Type of Contact [] Declined health tech visit [] Patient/Family/Request visit [] Outpatient visit [X] Follow-up visit [] Physician referral [] Code/Alert [] Routine visit [] Staff referral [] Actively dying [] Patient sleeping [] Family support [] [] Out of room [] Palliative care [] [] Receiving care in room [] Pre-surgical visit [] Trauma [] Long length of stay [] ICU visit [] Other: Relational/Emotional Strength [] Patient feels connected with others/family/visitors/staff [] Distress [] Loneliness/isolation [] Abandonment Spirituality of Patient [] Person of Yumiko [] Attends Gnosticist of their Yumiko [] Believes in Prayer [] Reads Bible or Holiness materials [] There are Spiritual issues to be addressed Mold Chipper Interventions [] Prayer [] Active listening [] Non-anxious presence [] Spiritual/emotional support [] Crisis/trauma care [] Spiritual counseling [] Bereavement support [] Provided bereavement packet [] Provided Bible/devotional materials [] Provided toy/stuffed animal, coloring book to patient or family member [] Provided Communion [] Anointing/[place] [] Salvation [] Completed spiritual assessment [] Other: Impact on Illness or Injury [] Angry [] Fearful [] Anxious [] Often cries [] Exhaustion [] Unable to work [] Unable to attend mandaen [] Unable to walk/stand [] Unable to read [] Unable to drive [] Unable to eat/drink [] Unable to sleep [] Unable to be with family [] Patient intubated [] Other: Summary Follow-up visit Time spent with patient 5 mins
--- NOTE | 2020-07-09 11:12 | P.DS_ITS ---
Discharge Providers Date of Admission: 07/08/20 14:42 Date of Discharge: July 09, 2020 Attending Provider at Admission: Yola Peraza MD Attending Provider at Discharge: Trino Crocker MD Primary Care Provider: Maricarmen Meza MD Diagnoses at Discharge Discharge Diagnosis (1) Anemia: Status: Chronic Permanent problem details: Hemoglobin stable following transfusion of 1 unit packed red blood cell this hospital stay. Qualifiers: Anemia type: unspecified type Qualified Code(s): D64.9 - Anemia, unspecified (2) Epistaxis: Status: Acute Permanent problem details: Nasal packing removed with no evidence of rebleeding (3) Chronic kidney disease, stage III (moderate): Status: Chronic Qualifiers: Chronic kidney disease stage 3 subtype: unspecified whether 3a or 3b Qualified Code(s): N18.30 - Chronic kidney disease, stage 3 unspecified (4) Polyarteritis nodosa: Status: Chronic (5) Immunosuppression: Status: Acute (6) DVT (deep venous thrombosis): Status: Acute Qualifiers: Affected thrombotic vein of extremity: unspecified vein of extremity Chronicity: chronic DVT location: lower extremity Laterality: unspecified laterality Qualified Code(s): I82.509 - 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 He was significantly anemic. He was admitted and transfused 1 unit packed red blood cells for hemoglobin of 6.7. ENT was consulted and removed his nasal packing on July 08. Secondary to his recurrent bleeding, severe nosebleed requiring transfusion at high risk of rebleeding ENT recommended continuing to monitor him 1 more night. On the morning of July 09 he has had no rebleed. Hemoglobin was stable at 8.2. It was thought he could be discharged to the nursing facility. Afrin is recommended for 2 more days, then saline nose spray indefinitely. Follow-up with ENT in 1 week. He will also need followed up with rheumatology within 1 week secondary to his polyarteritis. Physical Exam Narrative: EXAM NARRATIVE: Is a white male, conversant but confusion is noted HEENT. No epistaxis noted Cardiovascular regular rate and rhythm without murmur Lungs clear without wheezing Abdomen is soft with positive bowel sounds Extremities no cyanosis clubbing or edema Discharge Data Data Completed and Pending: Completed Studies During Hospitalization Category Date Time Status XR chest 1V vito ble [id number] Stat Exams 07/07/20 18:58 Completed Pending at discharge Category Date Time Status A Subgroup Stat Lab 07/07/20 19:20 Results Leukocyte Reduced RBC Stat Lab 07/07/20 19:20 Results Type and Screen S tat Lab 07/07/20 19:20 Results Urine Culture Sta t Lab 07/07/20 20:25 Received Labs from last 24 hours 07/09/20 07/09/20 04:58 04:58 WBC 6.9 RBC 2.79 L Hgb 8.2 L Hct 27.7 L MCV 99.3 H MCH 29.4 MCHC 29.6 L RDW 19.4 H Plt Count 151 MPV 9.5 Neut % (Auto) 89.6 Lymph % (Auto) 4.6 [place] % (Auto) 5.1 Eos % (Auto) 0.0 Baso % (Auto) 0.3 Neut # (Auto) 6.17 Lymph # (Auto) 0.3 L [place] # (Auto) 0.4 Eos # (Auto) 0.0 Baso # (Auto) 0.0 Nucleated RBC % (a uto) 0 Nucleated RBCs # 0.0 Sodium 140 Potassium 5.5 H Chloride 110 H Carbon Dioxide 20 L Anion Gap 15.5 BUN 51 H Creatinine 3.3 H GFR Calculation Not Reportable Glucose 103 Calculated Osmolal ity 304 H Calcium 8.1 L Vitals: Last Vital Signs Temp 97.4 F L 07/09/20 04:00 Pulse 90 07/09/20 09:25 Resp 15 07/09/20 09:25 BP 183/92 07/09/20 09:25 Pulse Ox 95 07/09/20 04:00 Discharge Plan Discharge Patient Disposition: Xfer SNF Condition: Stable Prescriptions: New pantoprazole 40 mg Tablet,Delayed Release (Dr/Ec) 40 mg PO DAILY Qty: 30 RF: 0 sodium chloride [Saline Nose] 0.65 % aerosol,spray 2 spray INTRANASAL TID Qty: 60 RF: 0 hydralazine 25 mg tablet 25 mg PO TID Qty: 90 RF: 0 amlodipine 10 mg Tablet 10 mg PO DAILY Qty: 30 RF: 0 oxymetazoline [Afrin (oxymetazoline)] 0.05 % [place],Non-Aerosol 4 spray NOSTRIL-R QID 2 Days RF: 0 Continued ondansetron HCl [Zofran] 4 mg tablet 4 mg PO BID PRN (Reason: nausea and vomiting) Qty: 30 RF: 0 fluticasone propion-salmeterol [Advair Diskus] 250-50 mcg/dose Blister With Device 1 puff inhalation BID.RESPIRATORY Qty: 1 RF: 0 prednisone 10 mg tablet 20 mg PO DAILY Qty: 30 RF: 0 cyanocobalamin (vitamin B-12) [Vitamin B-12] 1,000 mcg Tablet 1,000 mcg PO DAILY RF: 0 mirtazapine 30 mg tablet 30 mg PO BEDTIME RF: 0 sucralfate [Carafate] 1 gram tablet 1 gm PO BID Qty: 60 RF: 3 Tubersol 5 tub. unit /0.1 mL Solution See Rx Instructions .ROUTE .COMPLEX RF: 0 Tylenol 325 mg Tablet 325 mg PO PRN PRN (Reason: Fever) RF: 0 bisacodyl 10 mg Suppository 10 mg IN DAILY PRN (Reason: Constipation) RF: 0 Enema Disposable 19-7 gram/118 mL Enema 118 ml IN DAILY PRN (Reason: Constipation) RF: 0 ProAir HFA 90 mcg/actuation Hfa Aerosol Inhaler 1 puff INHALATION QID RF: 0 pravastatin 20 mg tablet 20 mg PO BEDTIME RF: 0 Discontinued ascorbic acid (vitamin C) [Vitamin C] 500 mg Tablet 500 mg PO BID Qty: 60 RF: 0 zinc gluconate 50 mg Tablet 50 mg PO DAILY Qty: 30 RF: 0 Milk of Magnesia 400 mg/5 mL Suspension 400 mg PO DAILY PRN (Reason: Constipation) RF: 0 levofloxacin 750 mg Tablet See Rx Instructions .ROUTE .COMPLEX RF: 0 Discharge Orders: Discharge Order (Routine); Ordered 07/09/20 Ordered By: Trino Crocker Referrals: Aniceto Espinosa MD [Physician] - 7-10 days Maricarmen Meza MD [Primary Care Provider] - Activity Restrictions/Additional Instructions: Afrin 4 sprays each nostril 4 times daily for 2 more days. Continue saline nasal spray 2 sprays each nostril 3 times daily indefinitely. Follow-up with ENT 1 week Follow-up with primary care provider at nursing facility early next week with CBC and BMP If no evidence of rebleeding, could consider restart of anticoagulant for DVT next week. 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 Discharge Attestations Time Spent in Discharge Care*: greater than 30 min Status at Discharge: Cognitive status at discharge: cognitively intact , Behavioral status at discharge: cooperative , Quality Metrics Clinical Quality Measures During this hospital stay, did patient experience: None Coding Level of Care Code Acute Machine Bander And Cellophaner for Sam[facility] Fwd Diagnoses Anemia D64.9 Anemia type: unspecified type Epistaxis R04.0 Chronic kidney disease, stage III (moderate) N18.30 Chronic kidney disease stage 3 subtype: unspecified whether 3a or 3b Polyarteritis nodosa M30.0 Immunosuppression D89.9 DVT (deep venous thrombosis) I82.509 Affected thrombotic vein of extremity: unspecified vein of extremity Chronicity: chronic DVT location: lower extremity Laterality: unspecified laterality
[2020-07-09 11:33] VITALS: BP 157/81; PULSE 71; RESP 15; TEMP 36.7; O2SAT 97
[2020-07-09 11:58] VITALS: PULSE 78; RESP 18; O2SAT 97
[2020-07-09] MEDS: oxymetazoline 0.05% Nasal Spray 15 mL 4 SPRAY NOSTRIL-R (13:00)
[2020-07-09] MEDS: sodium polystyrene sulfonate 15 gm/60 mL Btl PO (13:01)
--- NOTE | 2020-07-09 13:21 | PC.NURSE ---
Pt report called to [facility] at [place]. IV's DC'd x 2, Caths intact,Bleeding controlled with 2x2's and coban, tolerated well.
--- NOTE | 2020-07-09 13:40 | PC.NURSE ---
Pt transferred to wheelchair with zero difficulties. transport company transferred pt to main entrance via wheelchair.
[2020-07-09 14:46] VITALS: BP 157/81; PULSE 78; RESP 18; O2SAT 97
== END 2020-07-09 13:40 | disposition skilled nursing facility (03) | DRG 812 ==
LOC: ER 22:03 → MEDSURG 22:04
PROVIDERS: Emergency Medicine; Admitting Provider Student in an Organized Health Care Education/Training Program; PCP Family Medicine; Visit Provider Internal Medicine
DX: D64.9 Anemia, unspecified (principal); M30.0 Polyarteritis nodosa; D84.821 Immunodeficiency due to drugs; I82.509 Chronic embolism and thrombosis of unspecified deep veins of unspecified lower extremity; I12.9 Hypertensive chronic kidney disease with stage 1 through stage 4 chronic kidney disease, or unspecified chronic kidney disease; N18.30 Chronic kidney disease, stage 3 unspecified; E78.5 Hyperlipidemia, unspecified; K21.9 Gastro-esophageal reflux disease without esophagitis; M10.9 Gout, unspecified; Z85.828 Personal history of other malignant neoplasm of skin; E55.9 Vitamin D deficiency, unspecified; Z86.19 Personal history of other infectious and parasitic diseases; T45.1X5A Adverse effect of antineoplastic and immunosuppressive drugs, initial encounter; R04.0 Epistaxis; Z66 Do not resuscitate
CPT/HCPCS: 12345; 36430; 71045; 80048; 80053; 81001; 82274; 82728; 83010; 83540; 83605; 84484; 85025; 85045; 85610; 85730; 86850; 86900; 86902; 86920; 87077; 87086; 87186; 87426; 93005; 94640; 96375; 99283; G0378; J2405; J2543; J3535; J7030; J7512; P9016

== ENCOUNTER 2020-07-10 06:56 | Inpatient (IN) | payer MEDICARE, SELFPAY ==
[2020-07-10] VITALS (21 sets, daily range): BP systolic 152–185; BP diastolic 78–108; PULSE 70–88; RESP 15–24; TEMP 36.3–36.4; O2SAT 92–99; BMI 21.7
--- NOTE | 2020-07-10 07:07 | CTR_ITS ---
PROCEDURE INFORMATION: Exam: CT Head Without Contrast Exam date and time: 07/10/2020 7:08 AM Age: 80 years old Clinical indication: Injury or trauma; Blunt trauma (contusions or hematomas); Patient HX: Fall this a. M. At [facility]. Brusing of left orbit with lac to eyebrow. Patient unable to give any history. TECHNIQUE: Imaging protocol: Computed tomography of the head without contrast. Radiation optimization: All CT scans at this facility use at least one of these dose optimization techniques: automated exposure control; mA and/or kV adjustment per patient size (includes targeted exams where dose is matched to clinical indication); or iterative reconstruction. 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 There is no acute intracranial hemorrhage. There is lucency in the cerebral white matter, likely microvascular disease although non-specific. Coleman white differentiation is intact. There are no extra-axial fluid collections. No evidence of mass. There is no mass effect or midline shift. Cerebral ventricles: The ventricles and sulci are enlarged, consistent with volume loss / atrophy. No hydrocephalus. Bones/joints: No acute skull fracture. Paranasal sinuses: There is mild mucosal thickening in paranasal sinuses. Mastoid air cells: There is opacification of left middle ear cavity and mastoid antrum and air cells also present on prior examination. There is small amount of opacification in inferior right mastoid air cells new from comparison study. Orbital cavity: There have been bilateral intraocular lens replacements likely related to cataract surgery. Vasculature: There is vascular calcification. Soft tissues: There is left periorbital hematoma. CT/CT head wo con* [id number] IMPRESSION: 1. No evidence of acute intracranial abnormality. No evidence of acute infarction, hemorrhage, or mass. 2. Atrophy and microvascular disease. 3. Other findings as described. Radiation Dose CTDIVOL = (mGy): DLP = 1101.16 (mGy-cm)
--- NOTE | 2020-07-10 07:07 | XR_ITS ---
WS: [id number] LEFT ELBOW: 3 VIEW(S) TECHNIQUE: AP, oblique and lateral. HISTORY: fall COMPARISON: None available. No acute fractures or dislocation. No joint effusion. Extensive soft tissue laceration and injury centered along the anterior elbow region. No foreign body . XR/XR elbow LT min 3V* [id number] IMPRESSION: Extensive soft tissue injury anterior to the elbow joint but no fracture identi fied.
--- NOTE | 2020-07-10 07:07 | CTR_ITS ---
PROCEDURE INFORMATION: Exam: CT Cervical Spine Without Contrast Exam date and time: 07/10/2020 7:08 AM Age: 80 years old Clinical indication: Injury or trauma; Blunt trauma; Patient HX: Fall this a. M. At [facility]. Brusing of left orbit with lac to eyebrow. Patient unable to give any history. TECHNIQUE: Imaging protocol: Computed tomography images of the cervical spine without contrast. Radiation optimization: All CT scans at this facility use at least one of these dose optimization techniques: automated exposure control; mA and/or kV adjustment per patient size (includes targeted exams where dose is matched to clinical indication); or iterative reconstruction. COMPARISON: No relevant prior studies available. RADIATION DOSE METRICS: Total DLP (mGy-cm): 525.76 FINDINGS: Bones/joints: Loss of cervical lordosis may be positional or associated with muscular spasm. Vertebral body heights are maintained. There is no fracture or dislocation. Facet joints appear well aligned. Discs/Spinal canal/Neural foramina: There are uncinate and facet degenerative changes which results in bilateral neural foraminal narrowing at C3-C4, C4-C5, C5-C6, and C6-C7 greatest at C5-C6 and C6-C7 where it is severe. C4-C5 shows central disc protrusion. There are disc osteophyte complexes at C5-C6 and C6-C7 greater than C4-C5 which causes probable moderate spinal stenosis at C5-C6 and C6-C7 although difficult quantitate with CT. Prevertebral Space: Prevertebral soft tissues appear normal. Soft tissues: Unremarkable. Thyroid: There small low-density subcentimeter thyroid no nodules and right thyroid calcification which do not warrant further evaluation given size and patient's age. Lungs: Lung apices are unremarkable for acute finding. Pleural space: There are bilateral pleural effusions. Vasculature: There is calcification noted at carotid bifurcations. CT/CT cervical spin wo con* [id number] IMPRESSION: 1. Loss of cervical lordosis. No evidence of fracture or dislocation. 2. Degenerative changes. 3. Bilateral pleural effusions. Radiation Dose CTDIVOL = (mGy): DLP = 525.76 (mGy-cm)
--- NOTE | 2020-07-10 07:07 | CTR_ITS ---
PROCEDURE INFORMATION: Exam: CT Maxillofacial Without Contrast Exam date and time: 07/10/2020 7:08 AM Age: 80 years old Clinical indication: Injury or trauma; Blunt trauma (contusions or hematomas); Orbit/periorbital; Patient HX: Fall this a. M. At [facility]. Bruising of left orbit with lac to eyebrow. Patient unable to give any history. TECHNIQUE: Imaging protocol: Computed tomography images of the face without contrast. Radiation optimization: All CT scans at this facility use at least one of these dose optimization techniques: automated exposure control; mA and/or kV adjustment per patient size (includes targeted exams where dose is matched to clinical indication); or iterative reconstruction. COMPARISON: No relevant prior studies available. RADIATION DOSE METRICS: Total DLP (mGy-cm): 1288.82 FINDINGS: Orbital cavity: There have been bilateral intraocular lens replacements likely related to cataract surgery. No exophthalmos. No retrobulbar mass or hematoma. Globes are intact. Bones/joints: There is no acute facial bone fracture. Paranasal sinuses: There is mucosal thickening in paranasal sinuses. There is a small retention cyst or polyp in left sphenoid sinus which crosses to right of midline. No sinus air-fluid levels. Mastoid air cells: There is opacification in left mastoid and middle ear cavity also present on prior examination. Soft tissues: There is soft tissue swelling of left cheek and periorbital region. CT/CT facial bones wo con* [id number] IMPRESSION: 1. No evidence of acute facial bone fracture. 2. Mucosal sinus disease. 3. Left otomastoid opacification also present on prior study. Radiation Dose CTDIVOL = (mGy): DLP = 1288.82 (mGy-cm)
--- NOTE | 2020-07-10 07:08 | ECG_ITS ---
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
--- NOTE | 2020-07-10 08:12 | ED_ITS ---
HPI - Fall General: Chief Complaint: Fall Stated Complaint: L HIP PAIN/ LAC TO EYE Time Seen by Provider: 07/10/20 07:07 History of Present Illness: HPI Narrative: This patient is an 80-year-old male coming to us from the long-term. He had an unwitnessed fall last night. He has baseline dementia and is quite confused. He has a small laceration over his left eye and some bruising around the eye. He is complaining of pain around his left elbow. He also has some left leg pain. He is not able to provide me with any further history. MD complaint: fall Onset (ago): unknown Fall witnessed: no Place fall occurred: long-term/SNF Loss of consciousness: Unsure Review of Systems General: Reports: ROS unobtainable due to mental status PFSH ED PFSH: Medical History Anemia Hemoglobin stable following transfusion of 1 unit packed red blood cell this hospital stay. Chronic kidney disease, stage III (moderate) CRI (chronic renal insufficiency) Diarrhea Dyslipidemia Epistaxis Nasal packing removed with no evidence of rebleeding GERD (gastroesophageal reflux disease) Gout History of DVT (deep vein thrombosis) Hypertension Idiopathic parathyroidism Immunosuppression Inguinal hernia left 11/30/2016 Polyarteritis nodosa Skin cancer Vitamin D deficiency Surgical History H/O endoscopy History of hernia repair History of hip surgery Status post biopsy of kidney Family History Other Cancer Social History Smoking and tobacco status: never smoked Alcohol intake: never Marital status: Physical Exam Const: COMMON NORMALS: no acute distress and alert GENERAL APPEARANCE: cooperative and comfortable ORIENTATION/CONSCIOUSNESS: Yes oriented to person HENMT: FACE & SINUS IMAGES: 1. Mild ecchymosis, 2 cm, superficial, well approximated laceration under the eyebrow Eye: GENERAL EYE: appearance normal, both eyes and all related structures Neck/C-Spine: COMMON NORMALS: supple, no meningeal signs and no JVD Chest: COMMONS NORMALS: normal inspection of the chest Resp: COMMON NORMALS: normal respiratory effort, No use of accessory muscles and clear to auscultation bilaterally AUSCULTATION: clear to auscultation bilaterally Cardio: COMMON NORMALS: no JVD, regular rate, regular rhythm and No murmurs pr esent (Cardio) RATE: regular rate RHYTHM: regular rhythm GI: COMMON NORMALS: Normal to inspection, nondistended, normoactive bowel sounds present, Soft to palpation and non-tender INSPECTION: Yes normal to inspection AUSCULTATION: Yes normoactive bowel sounds PALPATION: Yes Soft to palpation Back/Pelvis: COMMON NORMALS: thoracic and lumbar spine normal to inspection Extremity: COMMON NORMALS: normal to inspection Neuro: COMMON NORMALS: moves all extremities, no focal motor deficits and no sensory deficits noted SENSORIUM/ORIENTATION: Yes alert and Yes oriented to person MENINGEAL SIGNS: Yes no meningeal signs Psych: COMMON NORMALS: mental status grossly normal, cooperative and normal affect Skin: COMMON NORMALS: no rashes or lesions noted and turgor normal GENERAL SKIN EXAM: no rashes or lesions noted and turgor normal Course ED course: Patient with this laceration over the left eye but this will not require sutures. Its well approximated. No fractures on facial CT or C-spine. Head CT was negative. Elbow was negative for fracture just with some soft tissue swelling. Left hip is positive for an impacted femoral neck fracture. He will be admitted to the hospitalist with Dr. Mckeon as a nursing education consultant for surgery. He will probably take him to the OR tomorrow. Discussed this with the patient's son and he is aware. The patient's blood pressure was elevated prior to admission and gave him his regular home medications to manage that. Vital Signs: Vital signs: Vital Signs Temperature 97.5 F L 07/10/20 15:33 Pulse Rate 80 07/10/20 17:16 Respiratory Rate 20 H 07/10/20 17:13 Blood Pressure 167/88 07/10/20 15:33 Pulse Oximetry 93 07/10/20 17:13 MDM - Fall Lab Data: Labs: Lab Results 07/10/20 07/10/20 07/10/20 Range/Units 09:55 09:55 09:55 WBC 7.0 (4.0-10.0) 10^3/ uL RBC 2.99 L (4.1-5.3) 10^6/u L Hgb 8.7 L (11.7-16.6) g/dL Hct 29.1 L (42.0-52.0) % MCV 97.3 H (80-94) fL MCH 29.1 (28.0-34.0) pg MCHC 29.9 L (30.0-36.0) g/dL RDW 18.2 H (12.1-15.1) % Plt Count 155 (130-400) 10^3/c mm MPV 10.3 (7.4-10.4) fL Neut % (Auto) 85.6 % Lymph % (Auto) 6.6 % Barton % (Auto) 6.0 % Eos % (Auto) 1.4 % Baso % (Auto) 0.1 % Neut # (Auto) 5.94 (1.8-7.7) 10^3/u L Lymph # (Auto) 0.5 L (0.8-4.8) 10^3/u L Barton # (Auto) 0.4 (0.2-0.9) 10^3/u L Eos # (Auto) 0.1 (0.0-0.8) 10^3/u L Baso # (Auto) 0.0 (0.0-0.1) 10^3/u L Nucleated RBC % (a uto) 0 % Nucleated RBCs # 0.0 /100WBC Sodium 139 (136-145) mmol/L Potassium 5.1 (3.5-5.1) mmol/L Chloride 108 H (98-107) mmol/L Carbon Dioxide 19 L (22-29) mmol/L Anion Gap 17.1 (5-19) BUN 53 H (8-23) mg/dL Creatinine 3.3 H (0.7-1.2) mg/dL GFR Calculation Not Reportable Glucose 89 (65-115) mg/dL Calculated Osmolal ity 302 H (285-295) mOsm/k g Calcium 8.2 L (8.5-10.5) mg/dL Total Bilirubin 0.3 (0.15-1.2) mg/dL AST 13 (0-40) U/L ALT 14 (0-41) U/L Alkaline Phosphata se 64 (40-130) IU/L Total Protein 5.9 L (6.6-8.7) g/dL Albumin 3.4 L (3.5-5.2) g/dL Globulin 2.5 (1.3-4.6) g/dL Rho(D) Type Positive Antibody Screen Negative Discharge Plan Discharge Patient Disposition: Admitted As Inpatient Admit Provider: Marya Fox Discharge Date/Time: 07/10/20 13:15 Coding Level of Care Code ED Bench Grinder for Chg Fwd Exam Comprehensive
--- NOTE | 2020-07-10 08:40 | XR_ITS ---
WS: [id number] LEFT HIP HISTORY: fall COMPARISON: None available. LEFT hip: Acute impacted subcapital femoral neck fracture. Deformity of the pubic rami and the symphy sis. These findings were also noted on 05/16/2020 from prior fractures. Cannot completely exclude super imposed fracture. Osteopenia. Prior screw fixation across the RIGHT SI joint. XR/XR hip LT 2-3V wo/w pel* [id number] IMPRESSION: 1. Acute nondisplaced, slightly impacted subcapital LEFT hip fracture. 2. Chronic deformity and prior fractures involving the pubic rami/symphysis pu bis. No acute fracture identified.
--- NOTE | 2020-07-10 08:40 | XR_ITS ---
WS: [id number] LEFT FEMUR: 2 VIEW(S) TECHNIQUE: AP and lateral. HISTORY: fall COMPARISON: None available. Study is limited by motion. Again noted is the recently described LEFT subcapital slightly impacted h ip fracture. No additional fractures appreciated throughout the femur but the quality is suboptimal d ue to motion. Soft tissues are unremarkable. No foreign body or calcification. XR/XR femur LT min 2V* [id number] Impression: 1. Suboptimal examination due to significant motion artifact in the mid to dis kosta femur. 2. Acute impacted LEFT subcapital hip fracture.
--- NOTE | 2020-07-10 09:23 | XR_ITS ---
WS: [id number] PORTABLE CHEST HISTORY: fall, hip fracture COMPARISON: 07/07/2020 Hyperinflated lungs. New mild pulmonary congestion in the RIGHT lung. May be due to dependent positio robert. The LEFT lung is clear and well aerated. Small RIGHT pleural effusion. No pneumothorax. Cardiac size: Mildly enlarged cardiac silhouette. Mediastinum/Aorta: Mild atherosclerosis aorta. No osseous abnormality seen. XR/XR chest 1V portable [id number] IMPRESSION: 1. Right-sided pulmonary congestion and small effusion. May be due to dependen t edema. 2. LEFT lung is clear.
[2020-07-10] MEDS: ondansetron 2 mg/ML SDV 2 mL 4 MG IVP (10:03)
[2020-07-10] MEDS: morphine 4 mg/mL SDV 1 mL IVP ×3 (10:03→22:08)
[2020-07-10 10:05] LABS: Basophils % 0.1 %; Eosinophils # 0.1 10^3/uL (0.0-0.8); Eosinophils % 1.4 %; Hematocrit 29.1 % (42.0-52.0); Hemoglobin 8.7 g/dL (11.7-16.6); Lymphocytes # 0.5 10^3/uL (0.8-4.8); Lymphocytes % 6.6 %; Mean Corpuscular HGB Conc 29.9 g/dL (30.0-36.0); Mean Corpuscular Hemoglobin 29.1 pg (28.0-34.0); Mean Corpuscular Volume 97.3 fL (80-94); Mean Platelet Volume 10.3 fL (7.4-10.4); Monocytes # 0.4 10^3/uL (0.2-0.9); Neutrophils # 5.94 10^3/uL (1.8-7.7); Neutrophils % 85.6 %; Nucleated Red Blood Cells % 0 %; Platelet Count 155 10^3/cmm (130-400); Red Blood Count 2.99 10^6/uL (4.1-5.3); Red Cell Distribution Width 18.2 % (12.1-15.1)
[2020-07-10] MEDS: sodium chlor 0.45% +KCl 20 mEq 20 MEQ/1,000 ML BAG 75 MEQ IV (10:05)
[2020-07-10 10:20] LABS: Alanine Aminotransferase 14 U/L (0-41); Albumin Level 3.4 g/dL (3.5-5.2); Alkaline Phosphatase 64 IU/L (40-130); Aspartate Amino Transferase 13 U/L (0-40); Blood Urea Nitrogen 53 mg/dL (8-23); Calcium 8.2 mg/dL (8.5-10.5); Carbon Dioxide 19 mmol/L (22-29); Chloride 108 mmol/L (98-107); Globulin 2.5 g/dL (1.3-4.6); Glucose 89 mg/dL (65-115); Osmolality Calculated 302 mOsm/kg (285-295); Sodium 139 mmol/L (136-145); Total Bilirubin 0.3 mg/dL (0.15-1.2); Total Protein 5.9 g/dL (6.6-8.7)
[2020-07-10 10:23] LABS: Anion Gap 17.1 (5-19); Creatinine Clr Calc Pharmacy 18.7702; Potassium 5.1 mmol/L (3.5-5.1)
--- NOTE | 2020-07-10 12:03 | P.HP_ITS ---
Providers/Chief Complaint Admitting Physician: Marya Fox DO Primary Care Provider: Maricarmen Meza MD Chief Complaint: L HIP PAIN/ LAC TO EYE History of Present Illness Good Alegre is a 80 year old male recently discharged to the [facility] yesterday after noting to have anemia and nosebleed. Patient has polyarteritis and dementia along with stage III chronic kidney disease. He was recently discharged to the [facility] noted to have an unwitnessed fall and found on the floor and brought into the ER for further evaluation and treatment. Upon evaluation in the emergency room he was noted to have left hip fracture and admitted for further evaluation and treatment. Unable to obtain HPI from patient due to his underlying dementia. Son at bedside. Review of Systems General: Reports: Other (Difficult to obtain full review of systems due to underlying dementia. Patient reports left hip pain, only concern. Denies any chest pain or shortness of breath.) Medications/Allergies Home Medications Medication Instructions Recorded Confirmed Last Taken Type ondansetron HCl 4 mg tablet 4 mg PO BID PRN #30 tab 10/18/19 07/10/20 Unknown Rx cyanocobalamin (vitamin B-12) 1,000 mcg PO DAILY 06/15/20 07/10/20 07/08/20 History [Vitamin B-12] mirtazapine 30 mg PO BEDTIME 06/15/20 07/10/20 07/09/20 History sucralfate [Carafate] 1 gm PO BID #60 tab 06/18/20 07/10/20 07/09/20 Rx fluticasone propion-salmeterol 1 puff INHALATION BID.RESPIRATORY 06/24/20 07/10/20 07/09/20 Rx [Advair Diskus] #1 ea prednisone 20 mg PO DAILY #30 tab 06/24/20 07/10/20 07/09/20 Rx Enema Disposable 118 ml GA DAILY PRN 07/07/20 07/10/20 Unknown History Tubersol See Rx Instructions .ROUTE .COMPLEX 07/07/20 07/10/20 07/09/20 History acetaminophen [Tylenol] 325 mg PO PRN PRN 07/07/20 07/10/20 Unknown History albuterol sulfate [ProAir HFA] 1 puff INHALATION QID 07/07/20 07/10/20 07/09/20 History bisacodyl 10 mg GA DAILY PRN 07/07/20 07/10/20 Unknown History pravastatin 20 mg PO BEDTIME 07/07/20 07/10/20 07/09/20 History amlodipine 10 mg PO DAILY #30 tab 07/09/20 07/10/20 07/08/20 Rx hydralazine 25 mg PO TID #90 tab 07/09/20 07/10/20 07/09/20 Rx mycophenolate mofetil 500 mg PO BID #60 tab 07/09/20 07/10/20 07/09/20 Rx oxymetazoline [Afrin 4 spray NOSTRIL-R QID 2 Days ml 07/09/20 07/10/20 07/09/20 Rx (oxymetazoline)] pantoprazole 40 mg PO DAILY #30 tab 07/09/20 07/10/20 07/08/20 Rx sodium chloride [Saline Nose] 2 spray INTRANASAL TID #60 ml 07/09/20 07/10/20 07/09/20 Rx prednisone 5 mg PO DAILY 07/10/20 07/10/20 07/09/20 History Allergies Allergy/AdvReac Type Severity Reaction Status Date / Time No Known Allergies Allergy Verified 05/17/20 02:56 PFSH Acute PFSH: Medical History Anemia Hemoglobin stable following transfusion of 1 unit packed red blood cell this hospital stay. Chronic kidney disease, stage III (moderate) CRI (chronic renal insufficiency) Diarrhea Dyslipidemia Epistaxis Nasal packing removed with no evidence of rebleeding GERD (gastroesophageal reflux disease) Gout History of DVT (deep vein thrombosis) Hypertension Idiopathic parathyroidism Immunosuppression Inguinal hernia left 11/30/2016 Polyarteritis nodosa Skin cancer Vitamin D deficiency Surgical History H/O endoscopy History of hernia repair History of hip surgery Status post biopsy of kidney Family History Other Cancer Social History Smoking and tobacco status: never smoked Alcohol intake: never Marital status: Vitals/I&O/Wt Last Vital Signs Pulse 77 07/10/20 11:30 Resp 18 07/10/20 11:38 BP 185/107 07/10/20 11:30 Pulse Ox 96 07/10/20 11:38 Weight last 48 hrs Weight 72.575 kg Physical Exam Const: COMMON NORMALS: alert GENERAL APPEARANCE: cooperative ORIENTATION/CONSCIOUSNESS: Yes awake and Yes confused HENMT: OTHER: Bruising around the left eye with superficial laceration over the left eye, hemostasis achieved Eye: COMMON NORMALS: Equal, round and reactive pupils present PUPIL: Yes Equal, round and reactive pupils present Neck/C-Spine: COMMON NORMALS: supple GENERAL: Yes normal visual inspection Resp: COMMON NORMALS: normal respiratory effort and clear to auscultation bilaterally EFFORT & INSPECTION: Yes able to speak in complete sentences AUSCULTATION: clear to auscultation bilaterally, no rhonchi and no wheezes Cardio: COMMON NORMALS: regular rate, regular rhythm and No murmurs present (Cardio) RATE: regular rate RHYTHM: regular rhythm GI: COMMON NORMALS: Soft to palpation and non-tender INSPECTION: No abdominal distension AUSCULTATION: Yes normoactive bowel sounds PALPATION: Yes Soft to palpation Extremity: COMMON NORMALS: no calf tenderness NARRATIVE EXTREMITY EXAM: Pain over the left hip Neuro: COMMON NORMALS: CN's II-XII intact bilaterally, moves all extremities and no focal motor deficits SENSORIUM/ORIENTATION: Yes alert, Yes oriented to person, Yes oriented to place and Yes oriented to time SPEECH: speech normal OTHER: Confused secondary to underlying dementia, at baseline oriented to person Psych: COMMON NORMALS: cooperative Skin: COMMON NORMALS: no rashes or lesions noted GENERAL SKIN EXAM: no rashes or lesions noted Data : 07/10/20 09:55 07/10/20 09:55 CT Head: I personally reviewed and interpreted this imaging study as follows: Radiologist's impression: IMPRESSION: 1. No evidence of acute facial bone fracture. 2. Mucosal sinus disease. 3. Left otomastoid opacification also present on prior study. Other CT: I personally reviewed and interpreted this imaging study as follows: Radiologist's impression: IMPRESSION: 1. No evidence of acute intracranial abnormality. No evidence of acute infarction, hemorrhage, or mass. 2. Atrophy and microvascular disease. 3. Other findings as described. Xray Ortho: I personally reviewed and interpreted this imaging study as follows: Radiologist's impression: Impression: 1. Suboptimal examination due to significant motion artifact in the mid to distal femur. 2. Acute impacted LEFT subcapital hip fracture. Other Xray: I personally reviewed and interpreted this imaging study as follows: Radiologist's impression: IMPRESSION: 1. Acute nondisplaced, slightly impacted subcapital LEFT hip fracture. 2. Chronic deformity and prior fractures involving the pubic rami/symphysis pubis. No acute fracture identified. CXR: I personally reviewed and interpreted this imaging study as follows: Radiologist's impression: IMPRESSION: 1. Right-sided pulmonary congestion and small effusion. May be due to dependent edema. 2. LEFT lung is clear. A&P Assessment and plan (1) Hip fracture: Left hip fracture status post unwitnessed fall at the [facility] Orthopedic surgery, Dr. Mckeon consulted, appreciate recommendations and assistance in patient's care Patient to remain n.p.o. after midnight for planned surgery tomorrow Status: Acute (2) Anemia: Chronic anemia, hemoglobin 8.7, no evidence of any active bleeding. Improved from discharged yesterday Status: Chronic Qualifiers: Anemia type: unspecified type Qualified Code(s): D64.9 - Anemia, unspecified (3) Chronic kidney disease, stage III (moderate): Renal function appears to be at baseline, continue strict intake and output as well as daily weights Status: Chronic Qualifiers: Chronic kidney disease stage 3 subtype: unspecified whether 3a or 3b Qualified Code(s): N18.30 - Chronic kidney disease, stage 3 unspecified (4) Polyarteritis nodosa: Needs continued outpatient rheumatology follow-up Status: Chronic (5) DVT (deep venous thrombosis): With anticoagulation on hold due to recent anemia secondary to epistaxis Status: Acute Qualifiers: Affected thrombotic vein of extremity: unspecified vein of extremity Chronicity: chronic DVT location: lower extremity Laterality: unspecified laterality Qualified Code(s): I82.509 - Chronic embolism and thrombosis of unspecified deep veins of unspecified lower extremity (6) COVID-19 virus infection: Now off of isolation Status: Acute Additional A&P Information GERD: Continue Protonix 40 mg daily Epistaxis: Recent hospitalization discharged yesterday, continue with Afrin spray for 2 additional days Hypertension: Continue hydralazine 25 mg 3 times a day, amlodipine 10 mg daily Hyperlipidemia: Continue statin Dementia DVT prophylaxis: SCDs, no pharmacologic prophylaxis due to concern for recent bleeding and anemia Diet: N.p.o. 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
--- NOTE | 2020-07-10 12:19 | PC.NURSE ---
pt report called to Abbey LEWIS in SBAR format. floor requests that pt blood pressure be addressed. [place] SKINNER notified.
[2020-07-10] MEDS: amlodipine 10 mg Tablet PO (12:53)
[2020-07-10] MEDS: hyDRALAzine 25 mg Tablet PO ×2 (12:53→21:56)
[2020-07-10] MEDS: albuterol 8 gm MDI 1 PUFF INHALATION ×2 (17:10→22:20)
[2020-07-10] MEDS: oxymetazoline 0.05% Nasal Spray 15 mL 4 SPRAY NOSTRIL-R ×2 (17:37→21:56)
--- NOTE | 2020-07-10 19:12 | PC.NURSE ---
Report to Yvonne LEWIS.
[2020-07-10] MEDS: saline nasal spray 44mL Btl 2 SPRAY NASAL (21:55)
[2020-07-10] MEDS: mirtazapine 30 mg Tablet PO (21:56)
[2020-07-10] MEDS: atorvastatin 40 mg Tablet 20 MG PO (21:56)
[2020-07-11] VITALS (30 sets, daily range): BP systolic 123–188; BP diastolic 68–100; PULSE 59–100; RESP 10–24; TEMP 36.4–37.6; O2SAT 95–100
--- NOTE | 2020-07-11 | SCC_ITS ---
Procedure: 61.9 seconds of fluoroscopic guidance, for a cumulative dose of 6.89 mGy, was provided to Dr. Mckeon by the radiology department. C-arm images of the LEFT hip were saved for the patient's permanent record. [email or web address]
[2020-07-11] MEDS: sodium chlor 0.45% +KCl 20 mEq 20 MEQ/1,000 ML BAG 75 MEQ IV (00:55)
[2020-07-11] MEDS: HYDROcodone-acetaminophen 5-325 mg Tablet 1 TAB PO ×2 (01:56→06:08)
[2020-07-11 04:15] LABS: Basophils % 0.3 %; Eosinophils % 0.1 %; Hematocrit 32.5 % (42.0-52.0); Hemoglobin 9.6 g/dL (11.7-16.6); Lymphocytes # 0.2 10^3/uL (0.8-4.8); Lymphocytes % 2.9 %; Mean Corpuscular HGB Conc 29.5 g/dL (30.0-36.0); Mean Corpuscular Hemoglobin 28.8 pg (28.0-34.0); Mean Corpuscular Volume 97.6 fL (80-94); Mean Platelet Volume 9.6 fL (7.4-10.4); Monocytes # 0.4 10^3/uL (0.2-0.9); Monocytes % 5.7 %; Neutrophils # 6.53 10^3/uL (1.8-7.7); Neutrophils % 90.6 %; Nucleated Red Blood Cells % 0 %; Platelet Count 148 10^3/cmm (130-400); Red Blood Count 3.33 10^6/uL (4.1-5.3); Red Cell Distribution Width 17.8 % (12.1-15.1); White Blood Count 7.2 10^3/uL (4.0-10.0)
[2020-07-11 04:29] LABS: INR 1.06 (0.8-1.2)
[2020-07-11 04:42] LABS: Anion Gap 18.3 (5-19); Blood Urea Nitrogen 51 mg/dL (8-23); Calcium 8.3 mg/dL (8.5-10.5); Carbon Dioxide 20 mmol/L (22-29); Chloride 104 mmol/L (98-107); Glucose 84 mg/dL (65-115); Osmolality Calculated 297 mOsm/kg (285-295); Potassium 5.3 mmol/L (3.5-5.1); Sodium 137 mmol/L (136-145)
--- NOTE | 2020-07-11 07:54 | ANES.PREANE2 ---
Pre-Anesthetic Assessment Pre-Anesthetic Assessment: Height/Weight: Height 1.83 m Weight 64.41 kg Temp Pulse Resp BP Pulse Ox 98.3 F 96 18 180/100 97 07/11/20 04:00 07/11/20 04:00 07/11/20 04:00 07/11/20 04:00 07/11/20 04:00 Preop Diagnosis: hip fracture Proposed Procedure: Operation Date: 07/11/20 08:20 Proposed Procedures p Hip Screw Closed Reduction Percutaneous Pinning Hip Screw(Left) - Daniel Mckeon MD Familial anesthetic complications: none (information obtained from son) Was Beta Jane taken within 24 hours: N/A Last intake: Intake NPO > 8 hrs Last Solid Date 07/10/20 Last Solid Time 14:00 Social: Social History: No alcohol and No tobacco Exam: Pre-Anes Outpt Exam: alert (sleeping), oriented x 3, clear to auscultation bilaterally and regular rate & rhythm Airway: Additional comments: patient confused Pulmonary: Comments: hx bacterial pneumonia, COVID positive on 06/15 (clear of precautions now) CV/HEM: CV/HEM: CHF and DVT Comments: EF 62% : : Chronic renal Insufficiency Comments: scr 3.4 Musc/skel: Comments: polyarteritis nodosa Anesthetic Plan: ASA status: 3 Anesthesia: MAC Other: General if unable to proceed with MAC Risk of > 500 ml blood loss (7ml/kg in children): No Other Pertinent Information: Information and consent obtained from son. Patient on prednisone, may require hydrocortisone 50-100 mg if refractory hypotension Meds/Allergies Current Medications: Current Medications Generic Name Dose Route Start Last Admin Trade Name Freq PRN Reason Stop Dose Admin Hydrocodone Bitart /Acetaminophen 1 tab 07/11/20 01:05 07/11/20 06:08 [place] 5-325 Mg PO 1 tab Q4H PRN Administration MODERATE PAIN Albuterol Sulfate 1 puff 07/10/20 17:00 07/10/20 22:20 Ventolin INHALATION 1 puff QID BLOSSOM Administration Atorvastatin Calci um 20 mg 07/10/20 21:00 07/10/20 21:56 Lipitor PO 20 mg BEDTIME BLOSSOM Administration Hydralazine HCl 25 mg 07/10/20 21:00 07/10/20 21:56 Apresoline PO 25 mg TID BLOSSOM Administration Potassium Chloride /Sodium Chloride 20 meq in 1,000 m ls @ 75 mls/hr 07/10/20 09:30 07/11/20 00:55 Sodium Chlor 0.4 5% +Kcl 20 Meq IV 75 mls/hr .[id number] BLOSSOM Administration Mirtazapine 30 mg 07/10/20 21:00 07/10/20 21:56 Remeron PO 30 mg BEDTIME BLOSSOM Administration Oxymetazoline HCl 4 spray 07/10/20 17:00 07/10/20 21:56 Afrin NOSTRIL-R 07/12/20 16:59 4 spray QID BLOSSOM Administration Fluticasone/Salmet stefan 1 puff 07/10/20 20:00 07/10/20 22:20 Advair Diskus 25 0-50 INHALATION 1 puff BID.RESPIRATORY S CH Administration Sodium Chloride 2 spray 07/10/20 21:00 07/10/20 21:55 [place] Nasal Spra y NASAL 2 spray TID BLOSSOM Administration Sucralfate 1 gm 07/10/20 18:00 07/10/20 17:46 Carafate PO Not Given BID BLOSSOM PFSH Anesthesia PFSH: Medical History Anemia Hemoglobin stable following transfusion of 1 unit packed red blood cell this hospital stay. Chronic kidney disease, stage III (moderate) CRI (chronic renal insufficiency) Diarrhea Dyslipidemia Epistaxis Nasal packing removed with no evidence of rebleeding GERD (gastroesophageal reflux disease) Gout History of DVT (deep vein thrombosis) Hypertension Idiopathic parathyroidism Immunosuppression Inguinal hernia left 11/30/2016 Polyarteritis nodosa Skin cancer Vitamin D deficiency Surgical History H/O endoscopy History of hernia repair History of hip surgery Status post biopsy of kidney Family History Other Cancer Social History Smoking and tobacco status: never smoked Alcohol intake: never Marital status: Data Anesthesia CBC & Chem 7: 07/11/20 03:30 07/11/20 03:30 Other Labs: Laboratory Results - last 48 hr 07/10/20 07/10/20 07/10/20 09:55 09:55 09:55 WBC 7.0 RBC 2.99 L Hgb 8.7 L Hct 29.1 L MCV 97.3 H MCH 29.1 MCHC 29.9 L RDW 18.2 H Plt Count 155 MPV 10.3 Neut % (Auto) 85.6 Lymph % (Auto) 6.6 [place] % (Auto) 6.0 Eos % (Auto) 1.4 Baso % (Auto) 0.1 Neut # (Auto) 5.94 Lymph # (Auto) 0.5 L [place] # (Auto) 0.4 Eos # (Auto) 0.1 Baso # (Auto) 0.0 Nucleated RBC % (auto) 0 Nucleated RBCs # 0.0 PT INR Sodium 139 Potassium 5.1 Chloride 108 H Carbon Dioxide 19 L Anion Gap 17.1 BUN 53 H Creatinine 3.3 H GFR Calculation Not Reportable Glucose 89 Calculated Osmolality 302 H Calcium 8.2 L Total Bilirubin 0.3 AST 13 ALT 14 Alkaline Phosphatase 64 Total Protein 5.9 L Albumin 3.4 L Globulin 2.5 Rho(D) Type Positive Antibody Screen Negative 07/11/20 07/11/20 07/11/20 03:30 03:30 03:30 WBC 7.2 RBC 3.33 L Hgb 9.6 L Hct 32.5 L MCV 97.6 H MCH 28.8 MCHC 29.5 L RDW 17.8 H Plt Count 148 MPV 9.6 Neut % (Auto) 90.6 Lymph % (Auto) 2.9 [place] % (Auto) 5.7 Eos % (Auto) 0.1 Baso % (Auto) 0.3 Neut # (Auto) 6.53 Lymph # (Auto) 0.2 L [place] # (Auto) 0.4 Eos # (Auto) 0.0 Baso # (Auto) 0.0 Nucleated RBC % (auto) 0 Nucleated RBCs # 0.0 PT 14.20 INR 1.06 Sodium 137 Potassium 5.3 H Chloride 104 Carbon Dioxide 20 L Anion Gap 18.3 BUN 51 H Creatinine 3.4 H GFR Calculation Not Reportable Glucose 84 Calculated Osmolality 297 H Calcium 8.3 L Total Bilirubin AST ALT Alkaline Phosphatase Total Protein Albumin Globulin Rho(D) Type Antibody Screen Cardiac Studies: No Data to Display
[2020-07-11] MEDS: sodium chloride 0.9% 1,000 ML 30 ML IV (08:00)
--- NOTE | 2020-07-11 08:00 | XR_ITS ---
WS: [id number] HIP WITH PELVIS LEFT TECHNIQUE: 3 views of the left hip with pelvis CLINICAL INFORMATION: FX REPAIR FLUOROSCOPY TIME 61.9 SECONDS COMPARISON: None. FINDINGS: Cannulated 3 screw fixation left hip fracture. Hardware appears in good position. XR/XR hip LT 2-3V wo/w pel* [id number] IMPRESSION: Images obtained for intraoperative purposes.
--- NOTE | 2020-07-11 08:13 | PM.CONSULT ---
Providers/Reason For Consult Consulting Physican/Specialty*: Daniel Mckeon MD Reason for Consult*: Left femoral neck fracture Attending Physician: Dinh Garza MD Primary Care Provider: Maricarmen Meza MD History of Present Illness History of Present Illness Good Alegre is a 80 year old male, resident at [facility]. He apparently fell yesterday with resulting pain in his left hip. He was transferred to our emergency room where radiographs revealed a femoral neck fracture. He has been admitted to the hospitalist service and orthopedics is consulted for management of the fracture. He apparently is ambulatory. He has been encouraged to use a walker but his son states he does not use it. The patient today is unable to give any history. Review of Systems General: Reports: ROS unobtainable due to mental status Meds/Allergies Home Medications and Allergies Home Medications Medication Instructions Recorded Confirmed Last Taken Type ondansetron HCl 4 mg tablet 4 mg PO BID PRN #30 tab 10/18/19 07/10/20 Unknown Rx cyanocobalamin (vitamin B-12) 1,000 mcg PO DAILY 06/15/20 07/10/20 07/08/20 History [Vitamin B-12] mirtazapine 30 mg PO BEDTIME 06/15/20 07/10/20 07/09/20 History sucralfate [Carafate] 1 gm PO BID #60 tab 06/18/20 07/10/20 07/09/20 Rx fluticasone propion-salmeterol 1 puff INHALATION BID.RESPIRATORY 06/24/20 07/10/20 07/09/20 Rx [Advair Diskus] #1 ea prednisone 20 mg PO DAILY #30 tab 06/24/20 07/10/20 07/09/20 Rx Enema Disposable 118 ml CO DAILY PRN 07/07/20 07/10/20 Unknown History Tubersol See Rx Instructions .ROUTE .COMPLEX 07/07/20 07/10/20 07/09/20 History acetaminophen [Tylenol] 325 mg PO PRN PRN 07/07/20 07/10/20 Unknown History albuterol sulfate [ProAir HFA] 1 puff INHALATION QID 07/07/20 07/10/20 07/09/20 History bisacodyl 10 mg CO DAILY PRN 07/07/20 07/10/20 Unknown History pravastatin 20 mg PO BEDTIME 07/07/20 07/10/20 07/09/20 History amlodipine 10 mg PO DAILY #30 tab 07/09/20 07/10/20 07/08/20 Rx hydralazine 25 mg PO TID #90 tab 07/09/20 07/10/20 07/09/20 Rx mycophenolate mofetil 500 mg PO BID #60 tab 07/09/20 07/10/20 07/09/20 Rx oxymetazoline [Afrin 4 spray NOSTRIL-R QID 2 Days ml 07/09/20 07/10/20 07/09/20 Rx (oxymetazoline)] pantoprazole 40 mg PO DAILY #30 tab 07/09/20 07/10/20 07/08/20 Rx sodium chloride [Saline Nose] 2 spray INTRANASAL TID #60 ml 07/09/20 07/10/20 07/09/20 Rx prednisone 5 mg PO DAILY 07/10/20 07/10/20 07/09/20 History Allergies Allergy/AdvReac Type Severity Reaction Status Date / Time No Known Allergies Allergy Verified 05/17/20 02:56 Current Medications Current Medications Generic Name Dose Route Start Last Admin Trade Name Freq PRN Reason Stop Dose Admin Hydrocodone Bitart/Acetaminophen 1 tab 07/11/20 01:05 07/11/20 06:08 [place] 5-325 Mg PO 1 tab Q4H PRN Administration MODERATE PAIN Albuterol Sulfate 1 puff 07/10/20 17:00 07/10/20 22:20 Ventolin INHALATION 1 puff QID BLOSSOM Administration Atorvastatin Calcium 20 mg 07/10/20 21:00 07/10/20 21:56 Lipitor PO 20 mg BEDTIME BLOSSOM Administration Hydralazine HCl 25 mg 07/10/20 21:00 07/10/20 21:56 Apresoline PO 25 mg TID BLOSSOM Administration Potassium Chloride/Sodium Chloride 20 meq in 1,000 mls @ 75 mls/hr 07/10/20 09:30 07/11/20 00:55 Sodium Chlor 0.45% +Kcl 20 Meq IV 75 mls/hr .[id number] BLOSSOM Administration Sodium Chloride 1,000 mls @ 30 mls/hr 07/11/20 08:00 10/31/20 08:00 Sodium Chloride 0.9% IV 07/12/20 07:59 30 mls/hr .Q24H BLOSSOM Administration Mirtazapine 30 mg 07/10/20 21:00 07/10/20 21:56 Remeron PO 30 mg BEDTIME BLOSSOM Administration Oxymetazoline HCl 4 spray 07/10/20 17:00 07/10/20 21:56 Afrin NOSTRIL-R 07/12/20 16:59 4 spray QID BLOSSOM Administration Fluticasone/Salmeterol 1 puff 07/10/20 20:00 07/10/20 22:20 Advair Diskus 250-50 INHALATION 1 puff BID.RESPIRATORY BLOSSOM Administration Sodium Chloride 2 spray 07/10/20 21:00 07/10/20 21:55 [place] Nasal [place] NASAL 2 spray TID BLOSSOM Administration Sucralfate 1 gm 07/10/20 18:00 07/10/20 17:46 Carafate PO Not Given BID BLOSSOM PFSH Acute PFSH: Medical History Anemia Hemoglobin stable following transfusion of 1 unit packed red blood cell this hospital stay. Chronic kidney disease, stage III (moderate) CRI (chronic renal insufficiency) Diarrhea Dyslipidemia Epistaxis Nasal packing removed with no evidence of rebleeding GERD (gastroesophageal reflux disease) Gout History of DVT (deep vein thrombosis) Hypertension Idiopathic parathyroidism Immunosuppression Inguinal hernia left 11/30/2016 Polyarteritis nodosa Skin cancer Vitamin D deficiency Surgical History H/O endoscopy History of hernia repair History of hip surgery Status post biopsy of kidney Family History Other Cancer Social History Smoking and tobacco status: never smoked Alcohol intake: never Marital status: Vitals/I&O/Wt Last Vital Signs Temp 99.4 F 07/11/20 07:40 Pulse 86 07/11/20 07:40 Resp 20 H 07/11/20 07:40 BP 169/96 07/11/20 07:40 Pulse Ox 96 07/11/20 07:40 07/10/20 07/11/20 07/11/20 22:59 06:59 14:59 Intake Total 0 / 225 Output Total 1150 / 1150 Balance -1150 / -925 Weight last 48 hrs Weight 142 lb Weight 160 lb Physical Exam Narrative: EXAM NARRATIVE: Patient is curled up in the position on his left side. He responds to voice but will not answer questions appropriately. His skin over his left hip is healthy He has pain with motion of his left hip. He has a palpable left dorsalis pedis pulse. We will grossly move his toes and ankle on the left Urinary Catheter Management^: Ludn: Cath Placed During This Visit: no Reason for Continuing Indwelling Catheter: Required Immobilization for Trauma or Surgery or Anesthesia Data Imaging^: Xray Ortho: My impression: Reviewed radiographs of the left hip. The patient has an impacted left femoral neck fracture in slight valgus A&P Assessment and plan (1) Nondisplaced fracture of neck of left femur: I discussed treatment options with the patient's son. I told him that without treatment the patient will be nonambulatory to be a high risk of displacement. I I told him with pinning I think we could minimize this displacement allow him to regain full amatory status. His fracture is nondisplaced and I do not think we need to perform a hemiarthroplasty. I told her there is no assurances that pinning would heal and produce a functional hip but I think the chances are very good. This will place the patient at very minimal surgical morbidity. I discussed the risks with the son including bleeding and infection. I discussed delirium which could increase in this patient with underlying dementia. Proceed with surgery today. Status: Acute Coding Level of Care Code Acute Bulk Mail Technician for [facility] Fwd Diagnoses Nondisplaced fracture of neck of left femur S72.002A
--- NOTE | 2020-07-11 09:06 | P.OP_ITS ---
Operative Report Date of procedure: July 11, 2020 Pre-op Diagnosis: Left femoral neck fracture, nondisplaced Post-op diagnosis: same Post-op Findings: Same Implants: [place] ASNIS 8.0 mm cannulated screws Pathology: none sent Anesthesia: MAC and Local Estimated blood loss (mL): 5 Complications: None Findings: Patient had a valgus impacted femoral neck fracture on the left side Condition: stable Brief History: Mr. Alegre is a 80-year-old male who fell in the [facility] with impacted fracture of the left femoral neck. Options were discussed with the family. Due to the minimal displacement the patient was thought a candidate for pinning to minimize the risk of a larger surgery such as arthroplasty Procedure: The patient was positioned on the fracture table with his right leg in traction. They were given []f. A timeout was performed. A small lateral stab wound was made just below the level of the greater trochanter with a scalpel blade. Under visit so fluoroscopy initial guide pin was driven from a central position just above the level of lesser trochanter into inferior neck an d inferior head. Over this was passed an 8.0 mm [place] Asnis screw. A second pin was placed in the superior anterior position and a second screw placed. A third pin was placed in a posterior superior position and a third screw placed. Intraoperative fluoroscopy was used to verify hardware position. The wound was irrigated with saline. Deep tissues were closed with 3-0 Vicryl. A sterile dressing was applied. The patient was taken to [] unit in stable condition.
--- NOTE | 2020-07-11 09:38 | PC.OT ---
OT orders received to evaluate and treat. Surgery performed on 07/11/20. OT will evaluate on 07/12/20.
--- NOTE | 2020-07-11 09:38 | SUR.PHASEI ---
PT NOW ON 3LNC ORALLY PT SNORING RESP DOES NOT AWAKE TO TOUCH, VSS LT HIP D/I WITH BILAT SCDS ON AYERS TO DD WITH SMALL AMT CLEAR YELLOW URINE, VSS LT FOOT DISTAL PULSE STRONG AND REGULAR, MARKED FOOT PINK WARM.
--- NOTE | 2020-07-11 09:43 | PM.PN ---
Subjective Subjective: Interval history: Hospital events, history and physical and labs noted. This morning on examination patient seen after ORIF. Patient still drowsy from the anesthesia. Labs and vitals noted. Documented urine output in last 24 hours 1360 cc. Vitals/I&O/Wt Last Vital Signs Temp 99.7 F H 07/11/20 09:15 Pulse 98 07/11/20 09:35 Resp 21 H 07/11/20 09:35 BP 123/82 07/11/20 09:35 Pulse Ox 96 07/11/20 09:35 07/10/20 07/11/20 07/11/20 22:59 06:59 14:59 Intake Total 0 / 225 70 / 70 Output Total 1150 / 1150 155 / 155 Balance -1150 / -925 -85 / -85 Weight last 48 hrs Weight 64.41 kg Weight 72.575 kg Physical Exam Urinary Catheter Management^: [place]: Cath Placed During This Visit: no Reason for Continuing Indwelling Catheter: Required Immobilization for Trauma or Surgery or Anesthesia Data : 07/11/20 03:30 07/11/20 03:30 A&P Assessment and plan (1) Nondisplaced fracture of neck of left femur: Status: Acute (2) Anemia: Status: Chronic Qualifiers: Anemia type: unspecified type Qualified Code(s): D64.9 - Anemia, unspecified (3) Chronic kidney disease, stage III (moderate): Renal function appears to be at baseline, continue strict intake and output as well as daily weights Status: Chronic Qualifiers: Chronic kidney disease stage 3 subtype: unspecified whether 3a or 3b Qualified Code(s): N18.30 - Chronic kidney disease, stage 3 unspecified (4) Polyarteritis nodosa: Needs continued outpatient rheumatology follow-up Status: Chronic (5) DVT (deep venous thrombosis): With anticoagulation on hold due to recent anemia secondary to epistaxis Status: Acute Qualifiers: Affected thrombotic vein of extremity: unspecified vein of extremity Chronicity: chronic DVT location: lower extremity Laterality: unspecified laterality Qualified Code(s): I82.509 - Chronic embolism and thrombosis of unspecified deep veins of unspecified lower extremity (6) Urinary tract infection due to ESBL Klebsiella: Status: Acute (7) COVID-19 virus infection: Now off of isolation Status: Acute Additional A&P Information Left hip fracture: Post-ORIF day 0. Physical therapy, anticoagulation as per Dr. Mckeon. Clear liquid diet for now and will advance gradually to baseline diet. We will monitor hemoglobin. [place] 5 every 6 hours as needed for pain. Last echocardiogram from May 2020 shows an EF of 62% with no regional wall motion abnormality, RVSP of 14 mmHg with mild AI. Anemia: Patient has history of chronic anemia. With most recent admission earlier this week for anemia because of epistaxis requiring 2 units of PRBC transfusion. Hemoglobin stable at present. Continue with Protonix, Carafate at home dose. Recent iron panel suggestive of mild iron deficiency as well. Will start patient on oral iron supplementation. History of polyarteritis nodosa: Patient follows up with radio frequency design engineer as an outpatient. Continue with home dose of prednisone 20 mg daily. If patient is not able to take prednisone will change him on dexamethasone for now. As per my conversation with the radio frequency design engineer he would want patient to go back on CellCept as soon as possible once infection has been ruled out. ESBL UTI: Difficult to gauge as per patient's physical exam if he has UTI. Most recent urinalysis from 07/07 consistent with trace bacteria, negative nitrite and leuk esterase. Check procalcitonin. Patient does not have any leukocytosis at present. T-max in last 24 hours or since admission 99.7 last night and 100.3 on 07/08. For now we will start patient on imipenem as per the renal function and culture sensitivities. Most probably patient requires 7-day course. We will also consult infectious disease for further recommendation on when to start CellCept as patient is critically ill and has had multiple admissions in the last few months. DVT: Has been off anticoagulation since recent admission due to epistaxis earlier this week. As per ENT can start anticoagulation in couple of days. We will consult with orthopedics and most likely start patient on low-dose of Eliquis in a week with monitoring of CBC in a week after that. CKD: Most likely secondary to polyarteritis nodosa. Baseline creatinine 3.3. Creatinine at baseline at present. Continue to monitor. Medical evaluation done for nephrotoxic drugs. Continue [place] catheterization for strict input output charting. Patient has hyperkalemia today: We will start patient on D50 along with 10 units insulin. Albuterol nebulization. Stop IV fluids with potassium supplementation. Repeat BMP in evening. GERD: Continue Protonix 40 mg daily Epistaxis: Recent hospitalization discharged yesterday, continue with Afrin spray for 2 additional days Hypertension: Goal blood pressure less than 140/90 mmHg. Continue hydralazine 25 mg 3 times a day, amlodipine 10 mg daily Hyperlipidemia: Continue statin Dementia DVT prophylaxis: SCDs, no pharmacologic prophylaxis due to concern for recent bleeding and anemia Diet: Clear liquid diet for now. Restart diet as per surgical recommendations. Attestations Medical Necessity Statement*: Patient needs further hospitalization for management of left hip fracture, chronic anemia, ESBL UTI, CKD, hyperkalemia. Time Spent in Patient Care: Greater than 35 minutes (>than 50% of time spent in counselling and/or direct pt care on unit). Coding Level of Care Code Acute Cycle Touring Guide for [facility] Fwd Diagnoses Nondisplaced fracture of neck of left femur S72.002A Anemia D64.9 Anemia type: unspecified type Chronic kidney disease, stage III (moderate) N18.30 Chronic kidney disease stage 3 subtype: unspecified whether 3a or 3b Polyarteritis nodosa M30.0 DVT (deep venous thrombosis) I82.509 Affected thrombotic vein of extremity: unspecified vein of extremity Chronicity: chronic DVT location: lower extremity Laterality: unspecified laterality Urinary tract infection due to ESBL Klebsiella N39.0; B96.89 COVID-19 virus infection U07.1
--- NOTE | 2020-07-11 09:46 | SUR.PHASEI ---
PT STILL UNRESPONSIVE TO STRONG TOUCH, VSS SATS 96% WITH SNORING RESP AND ORAL AIRWAY OUT,
--- NOTE | 2020-07-11 10:13 | PC.NURSE ---
Patient to jason at 0720.
--- NOTE | 2020-07-11 10:25 | PM.PACU ---
PACU note Post-Anesthesia Exam: somnolent, arousable and vital signs stable Disposition: back to floor
[2020-07-11 10:40] LABS: Procalcitonin 0.53 ng/mL (0-0.5)
--- NOTE | 2020-07-11 11:15 | SUR.PHASEI ---
1040 PT TO ROOM PT AWAKES OPENS EYES TO TOUCH, MUMBLES RESPONSE, MOVES ARM AND TURNS HEAD AWAY FROM NURSE, PT LIFTS HEAD FROM BED THEN QUICKLY BACK TO SNORING RESP O2 3LNC TO MOUTH WITH SATS OF 99% NO DISTRESS LT HIP DRESSING D/I BP 132/82, HRE 88 RESP 17
--- NOTE | 2020-07-11 12:55 | PC.CHAP ---
Pastoral Care Encounter/Spiritual Assessment Type of Contact [] Declined examining officer visit [] Patient/Family/Request visit [] Outpatient visit [] Follow-up visit [] Physician referral [] Code/Alert [] Routine visit [] Staff referral [] Actively dying [X] Patient sleeping [] Family support [] [] Out of room [] Palliative care [] [] Receiving care in room [] Pre-surgical visit [] Trauma [] Long length of stay [] ICU visit [] Other: Relational/Emotional Strength [] Patient feels connected with others/family/visitors/staff [] Distress [] Loneliness/isolation [] Abandonment Spirituality of Patient [] Person of Yumiko [] Attends Mandaeism of their [place] [] Believes in Prayer [] Reads Bible or Episcopalian materials [] There are Spiritual issues to be addressed Electrical And Instrument Technician Interventions [] Prayer [] Active listening [] Non-anxious presence [] Spiritual/emotional support [] Crisis/trauma care [] Spiritual counseling [] Bereavement support [] Provided bereavement packet [] Provided Bible/devotional materials [] Provided toy/stuffed animal, coloring book to patient or family member [] Provided Communion [] Anointing/[place] [] Salvation [] Completed spiritual assessment [] Other: Impact on Illness or Injury [] Angry [] Fearful [] Anxious [] Often cries [] Exhaustion [] Unable to work [] Unable to attend jehovah's witness [] Unable to walk/stand [] Unable to read [] Unable to drive [] Unable to eat/drink [] Unable to sleep [] Unable to be with family [] Patient intubated [] Other: Summary Time spent with patient
[2020-07-11] MEDS: ipratropium-albuterol 3 mL Neb INHALATION ×2 (15:05→20:33)
[2020-07-11 17:20] LABS: Basophils % 0.1 %; Hematocrit 32.4 % (42.0-52.0); Hemoglobin 9.4 g/dL (11.7-16.6); Lymphocytes # 0.2 10^3/uL (0.8-4.8); Mean Corpuscular Hemoglobin 29.2 pg (28.0-34.0); Mean Corpuscular Volume 100.6 fL (80-94); Mean Platelet Volume 9.9 fL (7.4-10.4); Monocytes # 0.2 10^3/uL (0.2-0.9); Monocytes % 2.6 %; Neutrophils # 6.93 10^3/uL (1.8-7.7); Neutrophils % 94.8 %; Nucleated Red Blood Cells % 0 %; Platelet Count 147 10^3/cmm (130-400); Red Blood Count 3.22 10^6/uL (4.1-5.3); Red Cell Distribution Width 17.4 % (12.1-15.1); White Blood Count 7.3 10^3/uL (4.0-10.0)
[2020-07-11] MEDS: budesonide 0.5 mg/2 mL Neb INHALATION (20:34)
--- NOTE | 2020-07-11 21:00 | PM.CONSULT ---
Providers/Reason For Consult Consulting Physican/Specialty*: Yola Peraza MD Reason for Consult*: opinion regarding resuming of cellcept Attending Physician: Dinh Garza MD Primary Care Provider: Maricarmen Meza MD History of Present Illness History of Present Illness Good Alegre is a 80 year old male with polyarteritis on cellcept until 05/2020 when it was held for severe anemia with Hb 4, and prednisone 20mg po qd, chronic renal failure,anemia, h/o DVT on Eliquis (last taken 06/27), HTN, recently admitted at [facility] for COVID PNA between 06/15 to 06/18 when he was treated with remdisivir, then again 06/20 to 06/24 for bacterial pneumonia as well as cellulitis left upper extremity treated with zosyn/vanc transitioined to Augmentin on discharge to SNF. Blood cx was notable at this time as being + for E.fecalis. More recently issues have included epistaxis, anemia requiring blood transfusion, thought to be multifactorial and current admission after an unwitnessed fall at [place] resulting in hip fracture for which he has undergone ORIF on 07/10. Post op course notable for fever 100.3F. Currently being treated with imipenem for UTI with ESBL E.coli from 07/07. Corresponding UA without any positive nitrite,LA. Unable to assess for symptoms given patient is unable to provide much history. Review of Systems General: Reports: ROS unobtainable due to medical condition Meds/Allergies Home Medications and Allergies Home Medications Medication Instructions Recorded Confirmed Last Taken Type ondansetron HCl 4 mg tablet 4 mg PO BID PRN #30 tab 10/18/19 07/10/20 Unknown Rx cyanocobalamin (vitamin B-12) 1,000 mcg PO DAILY 06/15/20 07/10/20 07/08/20 History [Vitamin B-12] mirtazapine 30 mg PO BEDTIME 06/15/20 07/10/20 07/09/20 History sucralfate [Carafate] 1 gm PO BID #60 tab 06/18/20 07/10/20 07/09/20 Rx fluticasone propion-salmeterol 1 puff INHALATION BID.RESPIRATORY 06/24/20 07/10/20 07/09/20 Rx [Advair Diskus] #1 ea prednisone 20 mg PO DAILY #30 tab 06/24/20 07/10/20 07/09/20 Rx Enema Disposable 118 ml UT DAILY PRN 07/07/20 07/10/20 Unknown History Tubersol See Rx Instructions .ROUTE .COMPLEX 07/07/20 07/10/20 07/09/20 History acetaminophen [Tylenol] 325 mg PO PRN PRN 07/07/20 07/10/20 Unknown History albuterol sulfate [ProAir HFA] 1 puff INHALATION QID 07/07/20 07/10/20 07/09/20 History bisacodyl 10 mg UT DAILY PRN 07/07/20 07/10/20 Unknown History pravastatin 20 mg PO BEDTIME 07/07/20 07/10/20 07/09/20 History amlodipine 10 mg PO DAILY #30 tab 07/09/20 07/10/20 07/08/20 Rx hydralazine 25 mg PO TID #90 tab 07/09/20 07/10/20 07/09/20 Rx mycophenolate mofetil 500 mg PO BID #60 tab 07/09/20 07/10/20 07/09/20 Rx oxymetazoline [Afrin 4 spray NOSTRIL-R QID 2 Days ml 07/09/20 07/10/20 07/09/20 Rx (oxymetazoline)] pantoprazole 40 mg PO DAILY #30 tab 07/09/20 07/10/20 07/08/20 Rx sodium chloride [Saline Nose] 2 spray INTRANASAL TID #60 ml 07/09/20 07/10/20 07/09/20 Rx prednisone 5 mg PO DAILY 07/10/20 07/10/20 07/09/20 History Allergies Allergy/AdvReac Type Severity Reaction Status Date / Time No Known Allergies Allergy Verified 05/17/20 02:56 Current Medications Current Medications Generic Name Dose Route Start Last Admin Trade Name Freq PRN Reason Stop Dose Admin Hydrocodone Bitart/Acetaminophen 1 tab 07/11/20 01:05 07/11/20 06:08 [place] 5-325 Mg PO 1 tab Q4H PRN Administration MODERATE PAIN Atorvastatin Calcium 20 mg 07/10/20 21:00 07/10/20 21:56 Lipitor PO 20 mg BEDTIME BLOSSOM Administration Hydralazine HCl 25 mg 07/10/20 21:00 07/10/20 21:56 Apresoline PO 25 mg TID BLOSSOM Administration Mirtazapine 30 mg 07/10/20 21:00 07/10/20 21:56 Remeron PO 30 mg BEDTIME BLOSSOM Administration Oxymetazoline HCl 4 spray 07/10/20 17:00 07/10/20 21:56 Afrin NOSTRIL-R 07/12/20 16:59 4 spray QID BLOSSOM Administration Fluticasone/Salmeterol 1 puff 07/10/20 20:00 07/10/20 22:20 Advair Diskus 250-50 INHALATION 1 puff BID.RESPIRATORY BLOSSOM Administration Sodium Chloride 2 spray 07/10/20 21:00 07/10/20 21:55 [place] Nasal [place] NASAL 2 spray TID BLOSSOM Administration Sucralfate 1 gm 07/10/20 18:00 07/10/20 17:46 Carafate PO Not Given BID BLOSSOM PFSH Acute PFSH: Medical History Anemia Chronic kidney disease, stage III (moderate) CRI (chronic renal insufficiency) Diarrhea Dyslipidemia Epistaxis Nasal packing removed with no evidence of rebleeding GERD (gastroesophageal reflux disease) Gout History of DVT (deep vein thrombosis) Hypertension Idiopathic parathyroidism Immunosuppression Inguinal hernia left 11/30/2016 Polyarteritis nodosa Skin cancer Vitamin D deficiency Surgical History H/O endoscopy History of hernia repair History of hip surgery Status post biopsy of kidney Family History Other Cancer Social History Smoking and tobacco status: never smoked Alcohol intake: never Marital status: Vitals/I&O/Wt Last Vital Signs Temp 97.6 F 07/11/20 10:42 Pulse 88 07/11/20 10:42 Resp 17 07/11/20 10:42 BP 132/82 07/11/20 10:42 Pulse Ox 99 07/11/20 10:42 07/10/20 07/11/20 07/11/20 22:59 06:59 14:59 Intake Total 0 / 225 370 / 370 Output Total 1150 / 1150 155 / 155 Balance -1150 / -925 215 / 215 Weight last 48 hrs Weight 64.41 kg Weight 72.575 kg Physical Exam Narrative: EXAM NARRATIVE: GEN: Asleep when first seen, able to node yes or no, tells me his name, but otherwise appears somnolent HEENT: NC/AT CVS: S1S2 N, no Murmurs, rubs or gallops RS: CTA B/L anteriorly Abd: Soft, nt/nd , bs+ CAR COUPLER: moves all extremities in bed Urinary Catheter Management^: Lund: Cath Placed During This Visit: no Reason for Continuing Indwelling Catheter: Required Immobilization for Trauma or Surgery or Anesthesia A&P Assessment and plan (1) Hip fracture: Status: Acute (2) Polyarteritis nodosa: Status: Chronic (3) Chronic kidney disease, stage III (moderate): Status: Chronic Qualifiers: Chronic kidney disease stage 3 subtype: unspecified whether 3a or 3b Qualified Code(s): N18.30 - Chronic kidney disease, stage 3 unspecified (4) Immunosuppression: Status: Acute (5) Anemia: Status: Chronic Qualifiers: Anemia type: unspecified type Qualified Code(s): D64.9 - Anemia, unspecified (6) UTI (urinary tract infection): Status: Acute Qualifiers: Urinary tract infection type: acute cystitis Hematuria presence: without hematuria Qualified Code(s): N30.00 - Acute cystitis without hematuria Additional A&P Information 80M with PMH as outlined above with multiple recent admissions here for anemia requiring blood transfusions, COVID 19 pneumonia, bacterial PNA, cellulitis, epistaxis and now hip fracture and UTI. Patient has a h/o ZIMMER for which he is on immunosupression with Cellcept and Prednisone 20mg po qd Per discussion with admitting team, there is plan to resume patient on Cellcept for worsening renal function. It has been on hold since 05/2020 for suspected toxicity at the time presenting as anemia with Hb 4. There is as such no contraindication from an ID perspective to resume this medication upon discharge once current episode of uncomplicated UTI has been treated. Suggest 5-7 day course of imipenem for the same. Can be transitioned to Ertapenem 0.5mg daily upon discharge if discharged prior to completion. Patient has had multiple viral and bacterial infections recently, has fortunately recovered from the same with appropriate treatment courses. He does remain at higher risk of opportunitsic infections, however given that benefits of resuming cellcept outweigh risks at this time, appropriate to resume medication with close monitoring. If patient is to remain on Prednisone 20mg per day and cannot be weaned off, recommend adding PJP prophylaxis with atovaquone 1500mg qd. Would not prefer bactrim given CKD and hyperkalemia on recent labs. Thank you for this consult. Coding Level of Care Code Acute Property Field Inspector for Elizabeth Ruiz Diagnoses Hip fracture S72.009A Polyarteritis nodosa M30.0 Chronic kidney disease, stage III (moderate) N18.30 Chronic kidney disease stage 3 subtype: unspecified whether 3a or 3b Immunosuppression D89.9 Anemia D64.9 Anemia type: unspecified type UTI (urinary tract infection) N30.00 Urinary tract infection type: acute cystitis Hematuria presence: without hematuria
[2020-07-11 21:05] LABS: Anion Gap 19.9 (5-19); Blood Urea Nitrogen 62 mg/dL (8-23); Calcium 7.8 mg/dL (8.5-10.5); Carbon Dioxide 16 mmol/L (22-29); Chloride 108 mmol/L (98-107); Glucose 100 mg/dL (65-115); Osmolality Calculated 304 mOsm/kg (285-295); Potassium 5.9 mmol/L (3.5-5.1); Sodium 138 mmol/L (136-145)
[2020-07-11] MEDS: mirtazapine 30 mg Tablet PO (21:13)
[2020-07-11] MEDS: hyDRALAzine 25 mg Tablet PO (21:13)
[2020-07-11] MEDS: atorvastatin 40 mg Tablet 20 MG PO (21:13)
[2020-07-11] MEDS: oxymetazoline 0.05% Nasal Spray 15 mL 4 SPRAY NOSTRIL-R (21:18)
[2020-07-11] MEDS: saline nasal spray 44mL Btl 2 SPRAY NASAL (21:21)
[2020-07-12] VITALS (10 sets, daily range): BP systolic 128–175; BP diastolic 75–86; PULSE 73–110; RESP 15–18; TEMP 36.6–37.7; O2SAT 84–97
[2020-07-12] MEDS: ipratropium-albuterol 3 mL Neb INHALATION ×2 (03:00→08:36)
[2020-07-12 04:08] LABS: Hemoglobin 8.5 g/dL (11.7-16.6); Lymphocytes # 0.3 10^3/uL (0.8-4.8); Lymphocytes % 5.1 %; Mean Corpuscular HGB Conc 29.3 g/dL (30.0-36.0); Mean Corpuscular Hemoglobin 29.2 pg (28.0-34.0); Mean Corpuscular Volume 99.7 fL (80-94); Mean Platelet Volume 9.4 fL (7.4-10.4); Monocytes # 0.4 10^3/uL (0.2-0.9); Monocytes % 7.2 %; Neutrophils # 4.46 10^3/uL (1.8-7.7); Neutrophils % 87.3 %; Nucleated Red Blood Cells % 0 %; Platelet Count 131 10^3/cmm (130-400); Red Blood Count 2.91 10^6/uL (4.1-5.3); Red Cell Distribution Width 17.2 % (12.1-15.1); White Blood Count 5.1 10^3/uL (4.0-10.0)
[2020-07-12 04:34] LABS: Alanine Aminotransferase 12 U/L (0-41); Albumin Level 2.9 g/dL (3.5-5.2); Alkaline Phosphatase 67 IU/L (40-130); Anion Gap 19.8 (5-19); Aspartate Amino Transferase 13 U/L (0-40); Blood Urea Nitrogen 59 mg/dL (8-23); Calcium 7.7 mg/dL (8.5-10.5); Carbon Dioxide 19 mmol/L (22-29); Chloride 108 mmol/L (98-107); Globulin 2.5 g/dL (1.3-4.6); Glucose 89 mg/dL (65-115); Osmolality Calculated 308 mOsm/kg (285-295); Potassium 5.8 mmol/L (3.5-5.1); Sodium 141 mmol/L (136-145); Total Bilirubin 0.2 mg/dL (0.15-1.2); Total Protein 5.4 g/dL (6.6-8.7)
[2020-07-12] MEDS: oxymetazoline 0.05% Nasal Spray 15 mL 4 SPRAY NOSTRIL-R ×2 (08:25→14:08)
[2020-07-12] MEDS: amlodipine 10 mg Tablet PO (08:25)
[2020-07-12] MEDS: ferrous gluconate 324 mg Tablet PO (08:25)
[2020-07-12] MEDS: hyDRALAzine 25 mg Tablet PO (08:25)
[2020-07-12] MEDS: pantoprazole DR 40 mg Tablet PO (08:25)
[2020-07-12] MEDS: saline nasal spray 44mL Btl 2 SPRAY NASAL ×3 (08:25→20:26)
[2020-07-12] MEDS: sucralfate 1 gm Tablet PO ×2 (08:25→17:43)
[2020-07-12] MEDS: budesonide 0.5 mg/2 mL Neb INHALATION (08:36)
--- NOTE | 2020-07-12 10:06 | PC.CHAP ---
Pastoral Care Encounter/Spiritual Assessment Type of Contact [] Declined perioperative educator visit [] Patient/Family/Request visit [] Outpatient visit [X] Follow-up visit [] Physician referral [] Code/Alert [] Routine visit [] Staff referral [] Actively dying [] Patient sleeping [] Family support [] [] Out of room [] Palliative care [] [] Receiving care in room [] Pre-surgical visit [] Trauma [] Long length of stay [] ICU visit [] Other: Relational/Emotional Strength [] Patient feels connected with others/family/visitors/staff [] Distress [] Loneliness/isolation [] Abandonment Spirituality of Patient [] Person of [place] [] Attends Oriental Orthodox of their [place] [] Believes in Prayer [] Reads Bible or Uatsdin materials [] There are Spiritual issues to be addressed Shop Manager Interventions [] Prayer [] Active listening [] Non-anxious presence [] Spiritual/emotional support [] Crisis/trauma care [] Spiritual counseling [] Bereavement support [] Provided bereavement packet [] Provided Bible/devotional materials [] Provided toy/stuffed animal, coloring book to patient or family member [] Provided Communion [] Anointing/[place] [] Salvation [] Completed spiritual assessment [] Other: Impact on Illness or Injury [] Angry [] Fearful [] Anxious [] Often cries [] Exhaustion [] Unable to work [] Unable to attend christianity [] Unable to walk/stand [] Unable to read [] Unable to drive [] Unable to eat/drink [] Unable to sleep [] Unable to be with family [] Patient intubated [] Other: Summary: Pt was extremely hard of hearing and despite me raising my voice, we really could not engage in meaningful conversation. He is anxious to go home. He declined prayer but appreciated the visit. Time spent with patient: 5 mins
[2020-07-12] MEDS: dextrose 50% syringe 50 mL IVP (11:34)
[2020-07-12] MEDS: insulin regular-human 10 UNIT in SYRINGE 1 EACH IVP (11:49)
--- NOTE | 2020-07-12 12:52 | P.PN_ITS ---
Subjective Subjective: Interval history: No acute events overnight. On examination patient is a lot more awake today. He is able to have complete conversation. He seems little confused and is requiring some reorientation while he is in the hospital though he remembers immediately. Denies any nausea, vomiting, headache. Asking for removal of the Lund catheter. States pain in the leg is well controlled. Vitals/I&O/Wt Last Vital Signs Temp 98.5 F 07/12/20 11:40 Pulse 110 H 07/12/20 11:40 Resp 15 07/12/20 11:40 BP 151/75 07/12/20 11:40 Pulse Ox 84 L 07/12/20 11:40 07/11/20 07/12/20 07/12/20 23:59 06:59 14:59 Intake Total 840 / 840 Output Total 250 / 250 Balance 590 / 590 Weight last 48 hrs Weight 64.41 kg Physical Exam Narrative: EXAM NARRATIVE: General: No acute distress, AO x 2-3, multiple contusion present on face and elbows, frail HEENT: PERRLA, pupils bilaterally equal and reactive Chest: Normal vesicular breath sounds, no added sounds, equal good air entry bilaterally CVS: S1-S2 regular, no murmurs, no tachycardia, no gallops, no rubs Abdomen: Soft, nontender, no organomegaly, bowel sounds present Neuro: No focal deficits, no facial deformity, AO x3, power 5/5 in all limbs Extremities: Surgical site remains healthy, without any hematoma. Urinary Catheter Management^: Lund: Cath Placed During This Visit: no Reason for Continuing Indwelling Catheter: Required Immobilization for Trauma or Surgery or Anesthesia Data : 07/12/20 03:37 07/12/20 03:37 Micro: Microbiology 07/11/20 12:34 Blood Culture - Preliminary Blood NEGATIVE TO DATE 07/11/20 12:40 Blood Culture - Preliminary Blood NEGATIVE TO DATE A&P Assessment and plan (1) Nondisplaced fracture of neck of left femur: Status: Acute (2) Anemia: Status: Chronic Qualifiers: Anemia type: unspecified type Qualified Code(s): D64.9 - Anemia, unspecified (3) Chronic kidney disease, stage III (moderate): Renal function appears to be at baseline, continue strict intake and output as well as daily weights Status: Chronic Qualifiers: Chronic kidney disease stage 3 subtype: unspecified whether 3a or 3b Qualified Code(s): N18.30 - Chronic kidney disease, stage 3 unspecified (4) Polyarteritis nodosa: Needs continued outpatient rheumatology follow-up Status: Chronic (5) DVT (deep venous thrombosis): With anticoagulation on hold due to recent anemia secondary to epistaxis Status: Acute Qualifiers: Affected thrombotic vein of extremity: unspecified vein of extremity Chronicity: chronic DVT location: lower extremity Laterality: unspecified late rality Qualified Code(s): I82.509 - 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 Physical therapy, anticoagulation as per Dr. Mckeon. We will monitor hemoglobin. [place] 5 every 6 hours as needed for pain. Last echocardiogram from May 2020 shows an EF of 62% with no regional wall motion abnormality, RVSP of 14 mmHg with mild AI. Anemia: Patient has history of chronic anemia. With most recent admission earlier this week for anemia because of epistaxis requiring 2 units of PRBC transfusion. Hemoglobin stable at present. Continue with Protonix, Carafate at home dose. Continue with oral iron supplementation. History of polyarteritis nodosa: Patient follows up with tankage supervisor as an outpatient. Switch back to prednisone 20 mg oral daily for now. As per my conversation with the tankage supervisor he would want patient to go back on CellCept as soon as possible once infection has been ruled out. ESBL UTI: Difficult to gauge as per patient's physical exam if he has UTI. Most recent urinalysis from 07/07 consistent with trace bacteria, negative nitrite an d leuk esterase. For now we will start patient on imipenem as per the renal function and culture sensitivities. Most probably patient requires 7-day course. ID recommendations appreciated. DVT: Has been off anticoagulation since recent admission due to epistaxis earlier this week. As per ENT can start anticoagulation in couple of days. We will consult with orthopedics and most likely start patient on low-dose of Eliquis in a week with monitoring of CBC in a week after that. CKD: Most likely secondary to polyarteritis nodosa. Baseline creatinine 3.3. Creatinine mildly elevated today. We will start patient on gentle hydration with normal saline at 50 cc/h for next 24 hours. Medical evaluation done for nephrotoxic drugs. Continue Lund catheterization for strict input output charting. Patient has hyperkalemia today: We will start patient on D50 along with 10 units insulin. Albuterol nebulization. Repeat BMP in evening. Hypertension: Goal blood pressure less than 140/90 mmHg. Blood pressure continues to remain elevated. Will increase hydralazine to 50 every 8 hourly, continue with amlodipine 10 mg. Start patient on metoprolol tartrate 25 mg twice daily. We will continue to monitor blood pressures. GERD: Continue Protonix 40 mg daily Epistaxis: Recent hospitalization discharged yesterday, continue with Afrin spray for 2 additional days Hyperlipidemia: Continue statin Dementia DVT prophylaxis: SCDs, no pharmacologic prophylaxis due to concern for recent bleeding and anemia Diet: Cardiac diet Attestations Medical Necessity Statement*: Patient needs further hospitalization for management of left hip fracture, post ORIF, acute on chronic kidney disease, ESBL UTI, ongoing anemia in setting of DVT Time Spent in Patient Care: Greater than 35 minutes (>than 50% of time spent in counselling and/or direct pt care on unit) . Coding Level of Care Code Acute Neuroscience Specialist for g Fwd Diagnoses Nondisplaced fracture of neck of left femur S72.002A Anemia D64.9 Anemia type: unspecified type Chronic kidney disease, stage III (moderate) N18.30 Chronic kidney disease stage 3 subtype: unspecified whether 3a or 3b Polyarteritis nodosa M30.0 DVT (deep venous thrombosis) I82.509 Affected thrombotic vein of extremity: unspecified vein of extremity Chronicity: chronic DVT location: lower extremity Laterality: unspecified laterality Urinary tract infection due to ESBL Klebsiella N39.0; B96.89 COVID-19 virus infection U07.1
--- NOTE | 2020-07-12 13:37 | ANE.PACU2 ---
Inpatient post-anesthesia follow up: Airway intact: Yes Vital signs: Temperature 98.5 F Pulse Rate [Monito r] 81 Pulse Rate 110 Respiratory Rate 15 Blood Pressure [Ri ght Arm] 177/108 Blood Pressure 151/75 Pulse Oximetry 84 Oxygen Delivery Me thod [ Room Air Current Rate & Del meliton] Oxygen Delivery Me thod Room Air Oxygen Flow Rate 2 Fraction of Inspir ed Oxygen Hydration adequate: Yes Nausea and vomiting: No Pain level: 2 Mental status: Baseline
[2020-07-12 14:25] LABS: Anion Gap 21.4 (5-19); Blood Urea Nitrogen 60 mg/dL (8-23); Calcium 8.1 mg/dL (8.5-10.5); Carbon Dioxide 18 mmol/L (22-29); Chloride 107 mmol/L (98-107); Glucose 96 mg/dL (65-115); Osmolality Calculated 309 mOsm/kg (285-295); Potassium 5.4 mmol/L (3.5-5.1); Sodium 141 mmol/L (136-145)
[2020-07-12] MEDS: ondansetron 2 mg/ML SDV 2 mL 4 MG IVP ×2 (15:42→20:53)
[2020-07-12] MEDS: hyDRALAzine 50 mg Tablet PO ×2 (15:44→20:25)
[2020-07-12] MEDS: metoprolol tartrate 25 mg Tablet PO (17:43)
[2020-07-12] MEDS: mirtazapine 30 mg Tablet PO (20:25)
[2020-07-12] MEDS: atorvastatin 40 mg Tablet 20 MG PO (20:25)
[2020-07-13] VITALS (7 sets, daily range): BP systolic 117–171; BP diastolic 63–81; PULSE 58–90; RESP 16–18; TEMP 36.6–37.1; O2SAT 94–98
[2020-07-13 04:03] LABS: Eosinophils # 0.1 10^3/uL (0.0-0.8); Eosinophils % 0.9 %; Hematocrit 31.9 % (42.0-52.0); Lymphocytes # 0.3 10^3/uL (0.8-4.8); Lymphocytes % 4.3 %; Mean Corpuscular HGB Conc 28.2 g/dL (30.0-36.0); Mean Corpuscular Hemoglobin 28.8 pg (28.0-34.0); Mean Corpuscular Volume 101.9 fL (80-94); Mean Platelet Volume 10.2 fL (7.4-10.4); Monocytes # 0.3 10^3/uL (0.2-0.9); Monocytes % 5.4 %; Neutrophils # 5.14 10^3/uL (1.8-7.7); Neutrophils % 88.9 %; Nucleated Red Blood Cells % 0 %; Platelet Count 150 10^3/cmm (130-400); Red Blood Count 3.13 10^6/uL (4.1-5.3); Red Cell Distribution Width 17.2 % (12.1-15.1); White Blood Count 5.8 10^3/uL (4.0-10.0)
[2020-07-13 04:26] LABS: Alanine Aminotransferase 7 U/L (0-41); Albumin Level 3.2 g/dL (3.5-5.2); Alkaline Phosphatase 76 IU/L (40-130); Aspartate Amino Transferase 20 U/L (0-40); Blood Urea Nitrogen 63 mg/dL (8-23); Carbon Dioxide 19 mmol/L (22-29); Chloride 105 mmol/L (98-107); Globulin 2.8 g/dL (1.3-4.6); Glucose 120 mg/dL (65-115); Osmolality Calculated 303 mOsm/kg (285-295); Sodium 137 mmol/L (136-145); Total Bilirubin 0.2 mg/dL (0.15-1.2)
[2020-07-13 04:44] LABS: Anion Gap 18.4 (5-19); Potassium 5.4 mmol/L (3.5-5.1)
[2020-07-13] MEDS: sodium chloride 0.9% 1,000 ML 50 ML IV (05:23)
[2020-07-13] MEDS: pantoprazole DR 40 mg Tablet PO (09:03)
[2020-07-13] MEDS: ferrous gluconate 324 mg Tablet PO (09:03)
[2020-07-13] MEDS: amlodipine 10 mg Tablet PO (09:03)
[2020-07-13] MEDS: predniSONE 20 mg Tablet PO (09:03)
[2020-07-13] MEDS: sucralfate 1 gm Tablet PO ×2 (09:03→17:56)
[2020-07-13] MEDS: hyDRALAzine 50 mg Tablet PO ×3 (09:03→22:10)
[2020-07-13] MEDS: metoprolol tartrate 25 mg Tablet PO ×2 (09:03→17:56)
[2020-07-13] MEDS: saline nasal spray 44mL Btl 2 SPRAY NASAL ×2 (09:04→14:00)
[2020-07-13] MEDS: HYDROcodone-acetaminophen 5-325 mg Tablet 1 TAB PO (11:14)
--- NOTE | 2020-07-13 13:56 | PM.PN ---
Subjective Subjective: Interval history: Assuming care of this patient today, patient known to me from previous admissions. Noted hypertension, low-grade temperature of 90 9.9F yesterday afternoon, has been afebrile since, on room air, had 125 mL urine output overnight. Stable hemoglobin at 9.0, noted hypokalemia with potassium of 5.4, continued renal impairment with mild improvement in creatinine. Resting quietly in bed, no complaints. Medications: Reviewed: Yes Medication Review Details: Active Medications Generic Name Dose Route Start Last Admin Trade Name Freq PRN Reason Stop Dose Admin Acetaminophen 650 mg 07/10/20 13:05 Tylenol PO Q6H PRN Mild/Mod Pain Or Temp >/= 101 Hydrocodone Bitart /Acetaminophen 1 tab 07/11/20 14:01 07/13/20 11:14 [place] 5-325 Mg PO 1 tab Q6H PRN Administration MODERATE PAIN Albuterol/Ipratrop ium 3 ml 07/11/20 15:00 07/13/20 09:20 Duoneb INHALATION Not Given Q6H.RESPIRATORY S CH Amlodipine Besylat e 10 mg 07/11/20 09:00 07/13/20 09:03 Norvasc PO 10 mg DAILY BLOSSOM Administration Atorvastatin Calci um 20 mg 07/10/20 21:00 07/12/20 20:25 Lipitor PO 20 mg BEDTIME BLOSSOM Administration Budesonide 0.5 mg 07/11/20 18:00 07/13/20 09:20 Pulmicort INHALATION Not Given BID BLOSSOM Ferrous Gluconate 324 mg 07/12/20 08:00 07/13/20 09:03 Ferrous Gluconat e PO 324 mg BREAKFAST BLOSSOM Administration Hydralazine HCl 50 mg 07/12/20 15:00 07/13/20 09:03 Apresoline PO 50 mg TID BLOSSOM Administration Imipenem/Cilastati n Sodium 250 100 mls @ 200 mls /hr 07/12/20 22:00 07/13/20 09:04 mg/ Sodium Chlor galen IV 200 mls/hr Q12H BLOSSOM Administration Protocol Metoclopramide HCl 10 mg 07/11/20 07:56 Reglan IVP ONCE PRN N/V if zofran ine ffective Metoprolol Tartrat e 25 mg 07/12/20 18:00 07/13/20 09:03 Lopressor PO 25 mg BID BLOSSOM Administration Mirtazapine 30 mg 07/10/20 21:00 07/12/20 20:25 Remeron PO 30 mg BEDTIME BLOSSOM Administration Ondansetron HCl 4 mg 07/11/20 10:25 07/12/20 20:53 Zofran IVP 4 mg Q4H PRN Administration NAUSEA AND VOMITI NG Pantoprazole Sodiu m 40 mg 07/11/20 09:00 07/13/20 09:03 Protonix PO 40 mg DAILY BLOSSOM Administration Prednisone 20 mg 07/11/20 09:00 07/13/20 09:03 Prednisone PO 20 mg DAILY BLOSSOM Administration Fluticasone/Salmet stefan 1 puff 07/10/20 20:00 07/13/20 08:41 Advair Diskus 25 0-50 INHALATION Not Given BID.RESPIRATORY S CH Sodium Chloride 2 spray 07/10/20 21:00 07/13/20 09:04 [place] Nasal Spra y NASAL 2 spray TID BLOSSOM Administration Sucralfate 1 gm 07/10/20 18:00 07/13/20 09:03 Carafate PO 1 gm BID BLOSSOM Administration No Known Allergies Allergy (Verified 05/17/20 02:56) Vitals/I&O/Wt Last Vital Signs Temp 98.7 F 07/13/20 11:37 Pulse 68 07/13/20 11:37 Resp 17 07/13/20 11:37 BP 133/81 07/13/20 11:37 Pulse Ox 94 07/13/20 11:37 07/12/20 07/13/20 07/13/20 22:59 06:59 14:59 Intake Total 350 / 1190 240 / 240 Output Total 125 / 375 400 / 400 Balance 350 / 940 -125 / 815 -160 / -160 Physical Exam Const: COMMON NORMALS: no acute distress and alert GENERAL APPEARANCE: cooperative and comfortable NUTRITIONAL APPEARANCE: thin ORIENTATION/CONSCIOUSNESS: Yes awake HENMT: COMMON NORMALS: normocephalic, atraumatic and moist oral mucous membranes HEAD & SCALP: normocephalic and atraumatic GENERAL EAR: hearing grossly impaired Eye: COMMON NORMALS: Equal, round and reactive pupils present, EOMs intact bilaterally and conjunctivae normal CONJUNCTIVA: Yes conjunctivae normal PUPIL: Yes Equal, round and reactive pupils present Neck/C-Spine: COMMON NORMALS: full ROM GENERAL: Yes normal visual inspection and Yes trachea midline Resp: COMMON NORMALS: normal respiratory effort, No retractions, No use of accessory muscles and clear to auscultation bilaterally EFFORT & INSPECTION: Yes able to speak in complete sentences, Yes symmetric chest movement and No tachypneic AUSCULTATION: clear to auscultation bilaterally OTHER: -on RA Cardio: COMMON NORMALS: regular rate, regular rhythm, S1 normal heart sound present, S2 normal heart sound present and No murmurs present (Cardio) RATE: regular rate RHYTHM: regular rhythm HEART SOUNDS: S1 normal heart sound present and S2 normal heart sound present GI: COMMON NORMALS: Normal to inspection, nondistended, normoactive bowel sounds present, Soft to palpation and non-tender PALPATION: Yes Soft to palpation Extremity: COMMON NORMALS: normal to inspection, full ROM, no clubbing, cyanosis or edema and no pedal edema Neuro: COMMON NORMALS: moves all extremities, no focal motor deficits and no sensory deficits noted SENSORIUM/ORIENTATION: Yes alert Psych: COMMON NORMALS: mental status grossly normal, cooperative, normal affect and speech normal SPEECH: Yes normal speech Skin: COMMON NORMALS: no rashes or lesions noted, no jaundice, no petechiae and no mottling NARRATIVE SKIN EXAM: -thin skin, scattered bruising on upper extremities GENERAL SKIN EXAM: no rashes or lesions noted Urinary Catheter Management^: [place]: Cath Placed During This Visit: no Reason for Continuing Indwelling Catheter: Required Immobilization for Trauma or Surgery or Anesthesia Data : 07/13/20 03:33 07/13/20 03:33 Micro: Microbiology 07/11/20 14:00 MRSA Culture - Final Nose 07/11/20 12:34 Blood Culture - Preliminary Blood NEGATIVE TO DATE 07/11/20 12:40 Blood Culture - Preliminary Blood NEGATIVE TO DATE A&P Assessment and plan (1) Nondisplaced fracture of neck of left femur: -s/p ORIF by Dr. Mckeon, POD # 2 -pain control as needed -fall precautions -PT/OT evaluations appreciated Status: Acute (2) Urinary tract infection due to ESBL Klebsiella: -Currently on imipenem per sensitivity profile Status: Acute (3) Chronic kidney disease, stage III (moderate): -has known CKD stage 3 -baseline Cr is around 3 -continue to monitor renal function, avoid nephrotoxins, renally dose meds -Had renal ultrasound done last month which showed markedly diminished velocities in the renal arteries which may be suggestive of proximal stenosis, unfortunately cannot do CTA due to renal function -Follows up with nephrology at [facility] -off IVF; encourage oral hydration Status: Chronic Qualifiers: Chronic kidney disease stage 3 subtype: unspecified whether 3a or 3b Qualified Code(s): N18.30 - Chronic kidney disease, stage 3 unspecified (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 -May not be a good candidate for long-term anticoagulation given underlying anemia with need for transfusion of blood products, recurrent falls Status: Acute Qualifiers: Affected thrombotic vein of extremity: unspecified vein of extremity Chronicity: chronic DVT location: lower extremity Laterality: unspecified laterality Qualified Code(s): I82.509 - Chronic embolism and thrombosis of unspecified deep veins of unspecified lower extremity (6) Anemia: -With episodes of R sided epistaxis that required packing on 07/08 -Has known history of anemia and has had prior GI work-up which per patient was negative for any acute bleeding source -Prior admission last month for severe anemia with hemoglobin as low as 4 and requirement of transfusion of blood products -s/p 1 unit with improvement in Hg up to 10 (06/15) -continue to monitor H/H closely particularly as on AC Status: Chronic Qualifiers: Anemia type: unspecified type Qualified Code(s): D64.9 - Anemia, unspecified Additional A&P Information -Treated for COVID-19 infection last month -Recurrent falls, generalized weakness, physical deconditioning, previously had rhabdomyolysis which resolved; PT evaluations requested, strict fall precautions -Known history of hypertension, on oral antihypertensives -GERD; on PPI and carafate -Hyperlipidemia; continue statin -Skin cancer affecting L ear; currently undergoing treatment -Very hard of hearing; hearing slightly better on the R -underlying cognitive impairment; reorient as needed -hx of chronic diastolic CHF, no acute exacerbation though need to monitor for development of fluid overload as on gentle IVF hydration. Echo (05/2020): EF=62%, mild concentric LVH, mild AR, trace MR, trace TR -cardiac diet as tolerated -GI ppx with PPI -DVT ppx with SCDs -Dispo: [facility] -Code status: DNR/DNI -guarded prognosis given advanced age, underlying comorbidities, issues with bleeding vs. anticoagulation Attestations Medical Necessity Statement*: Patient requires hospitalization for continued management of acute on chronic renal impairment, anemia with need for continued monitoring of hemoglobin, appropriate postop care status post ORIF for left femur fracture. Time Spent in Patient Care: 16 - 35 minutes (>than 50% of time spent in counselling and/or direct pt care on unit). Coding Level of Care Code Acute Industrial Cleaning Technician for g Fwd Exam Comprehensive Diagnoses Nondisplaced fracture of neck of left femur S72.002A Urinary tract infection due to ESBL Klebsiella N39.0; B96.89 Chronic kidney disease, stage III (moderate) N18.30 Chronic kidney disease stage 3 subtype: unspecified whether 3a or 3b Polyarteritis nodosa M30.0 DVT (deep venous thrombosis) I82.509 Affected thrombotic vein of extremity: unspecified vein of extremity Chronicity: chronic DVT location: lower extremity Laterality: unspecified laterality Anemia D64.9 Anemia type: unspecified type
--- NOTE | 2020-07-13 17:05 | DCPLANNER ---
Gate Agent explains Pg 2 of IM to both pt and his Son; Jake who is @ bedside. No questions, copy provided.
[2020-07-13] MEDS: atorvastatin 40 mg Tablet 20 MG PO (22:10)
[2020-07-13] MEDS: mirtazapine 30 mg Tablet PO (22:11)
[2020-07-14] VITALS (10 sets, daily range): BP systolic 116–140; BP diastolic 54–73; PULSE 59–71; RESP 16–17; TEMP 36.5–37.1; O2SAT 93–97
[2020-07-14 06:17] LABS: Eosinophils % 0.9 %; Hematocrit 23.8 % (42.0-52.0); Hemoglobin 7.1 g/dL (11.7-16.6); Lymphocytes # 0.2 10^3/uL (0.8-4.8); Lymphocytes % 6.3 %; Mean Corpuscular HGB Conc 29.8 g/dL (30.0-36.0); Mean Corpuscular Hemoglobin 29.1 pg (28.0-34.0); Mean Corpuscular Volume 97.5 fL (80-94); Mean Platelet Volume 9.8 fL (7.4-10.4); Monocytes # 0.2 10^3/uL (0.2-0.9); Monocytes % 5.4 %; Neutrophils # 3.04 10^3/uL (1.8-7.7); Neutrophils % 87.1 %; Nucleated Red Blood Cells % 0 %; Platelet Count 136 10^3/cmm (130-400); Red Blood Count 2.44 10^6/uL (4.1-5.3); White Blood Count 3.5 10^3/uL (4.0-10.0)
[2020-07-14 06:32] LABS: Anion Gap 16.1 (5-19); Calcium 7.6 mg/dL (8.5-10.5); Carbon Dioxide 18 mmol/L (22-29); Chloride 110 mmol/L (98-107); Glucose 131 mg/dL (65-115); Osmolality Calculated 316 mOsm/kg (285-295); Potassium 5.1 mmol/L (3.5-5.1); Sodium 139 mmol/L (136-145)
[2020-07-14 07:10] LABS: Blood Urea Nitrogen 85 mg/dL (8-23)
--- NOTE | 2020-07-14 07:22 | PC.NURSE ---
Notified Dr Thomas that patient has BUN 85 and Creatinine if 4.0
--- NOTE | 2020-07-14 08:06 | PC.NURSE ---
family updated on patient's night. son requesting call from Dr mccarthy today and requesting patient be at SNF closer to [place] if possible. Dr Thomas notified of patient's family request.
--- NOTE | 2020-07-14 08:16 | PC.OT ---
Due to critically high BUN, occupational therapy will hold treatment today. Will attempt again tomorrow. Co-sign: PRINCESS BrothersR/L
[2020-07-14] MEDS: ipratropium-albuterol 3 mL Neb INHALATION ×2 (08:26→14:32)
[2020-07-14] MEDS: budesonide 0.5 mg/2 mL Neb INHALATION (08:26)
[2020-07-14] MEDS: hyDRALAzine 50 mg Tablet PO (09:04)
[2020-07-14] MEDS: amlodipine 10 mg Tablet PO (09:04)
[2020-07-14] MEDS: predniSONE 20 mg Tablet PO (09:04)
[2020-07-14] MEDS: pantoprazole DR 40 mg Tablet PO (09:04)
[2020-07-14] MEDS: sucralfate 1 gm Tablet PO ×2 (09:04→18:17)
[2020-07-14] MEDS: metoprolol tartrate 25 mg Tablet PO ×2 (09:05→18:16)
[2020-07-14] MEDS: saline nasal spray 44mL Btl 2 SPRAY NASAL ×3 (09:05→22:19)
[2020-07-14] MEDS: ferrous gluconate 324 mg Tablet PO (09:05)
--- NOTE | 2020-07-14 13:37 | P.PN_ITS ---
Subjective Subjective: Interval history: Renal impairment persists, had 350 mL urine output overnight. Hemodynamically stable, afebrile, on RA. Worsening anemia, will require transfusion of blood products. Will need to consult nephrology. He is POD # 3 s/p ORIF. Resting quietly in bed, as well as his resting does not have pain but on movement including during therapy sessions and exercises he has increased lower extremity discomfort. Repeat hemoglobin this afternoon shows improvement in hemoglobin to 8.3, type and screen ordered in case of need to transfuse blood products. Case discussed with Dr. Webb. Son updated at bedside. Medications: Reviewed: Yes Medication Review Details: Active Medications Generic Name Dose Route Start Last Admin Trade Name Freq PRN Reason Stop Dose Admin Acetaminophen 650 mg 07/10/20 13:05 Tylenol PO Q6H PRN Mild/Mod Pain Or Temp >/= 101 Hydrocodone Bitart /Acetaminophen 1 tab 07/11/20 14:01 07/13/20 11:14 [place] 5-325 Mg PO 1 tab Q6H PRN Administration MODERATE PAIN Albuterol/Ipratrop ium 3 ml 07/11/20 15:00 07/14/20 08:26 Duoneb INHALATION 3 ml Q6H.RESPIRATORY S CH Administration Amlodipine Besylat e 10 mg 07/11/20 09:00 07/14/20 09:04 Norvasc PO 10 mg DAILY BLOSSOM Administration Atorvastatin Calci um 20 mg 07/10/20 21:00 07/13/20 22:10 Lipitor PO 20 mg BEDTIME BLOSSOM Administration Budesonide 0.5 mg 07/13/20 20:00 07/14/20 08:26 Pulmicort INHALATION 0.5 mg BID.RESPIRATORY S CH Administration Ferrous Gluconate 324 mg 07/12/20 08:00 07/14/20 09:05 Ferrous Gluconat e PO 324 mg BREAKFAST BLOSSOM Administration Hydralazine HCl 50 mg 07/12/20 15:00 07/14/20 09:04 Apresoline PO 50 mg TID BLOSSOM Administration Imipenem/Cilastati n Sodium 250 100 mls @ 200 mls /hr 07/12/20 22:00 07/14/20 09:05 mg/ Sodium Chlor galen IV 200 mls/hr Q12H BLOSSOM Administration Protocol Metoclopramide HCl 10 mg 07/11/20 07:56 Reglan IVP ONCE PRN N/V if zofran ine ffective Metoprolol Tartrat e 25 mg 07/12/20 18:00 07/14/20 09:05 Lopressor PO 25 mg BID BLOSSOM Administration Mirtazapine 30 mg 07/10/20 21:00 07/13/20 22:11 Remeron PO 30 mg BEDTIME BLOSSOM Administration Ondansetron HCl 4 mg 07/11/20 10:25 07/12/20 20:53 Zofran IVP 4 mg Q4H PRN Administration NAUSEA AND VOMITI NG Pantoprazole Sodiu m 40 mg 07/11/20 09:00 07/14/20 09:04 Protonix PO 40 mg DAILY BLOSSOM Administration Prednisone 20 mg 07/11/20 09:00 07/14/20 09:04 Prednisone PO 20 mg DAILY BLOSSOM Administration Fluticasone/Salmet stefan 1 puff 07/10/20 20:00 07/14/20 08:26 Advair Diskus 25 0-50 INHALATION Not Given BID.RESPIRATORY S CH Sodium Chloride 2 spray 07/10/20 21:00 07/14/20 09:05 [place] Nasal Spra y NASAL 2 spray TID BLOSSOM Administration Sucralfate 1 gm 07/10/20 18:00 07/14/20 09:04 Carafate PO 1 gm BID BLOSSOM Administration No Known Allergies Allergy (Verified 05/17/20 02:56) Vitals/I&O/Wt Last Vital Signs Temp 98.1 F 07/14/20 10:41 Pulse 61 07/14/20 10:41 Resp 16 07/14/20 10:41 BP 127/67 07/14/20 10:41 Pulse Ox 97 07/14/20 10:41 07/13/20 07/14/20 07/14/20 22:59 06:59 14:59 Intake Total 460 / 800 480 / 480 Output Total 100 / 500 350 / 850 100 / 100 Balance 360 / 300 -350 / -50 380 / 380 Physical Exam Const: COMMON NORMALS: no acute distress and alert GENERAL APPEARANCE: cooperative and comfortable NUTRITIONAL APPEARANCE: thin ORIENTATION/CONSCIOUSNESS: Yes awake HENMT: COMMON NORMALS: normocephalic, atraumatic and moist oral mucous membranes HEAD & SCALP: normocephalic and atraumatic GENERAL EAR: hearing grossly impaired (Hearing better on the right) Eye: COMMON NORMALS: Equal, round and reactive pupils present, EOMs intact bilaterally and conjunctivae normal CONJUNCTIVA: Yes conjunctivae normal PUPIL: Yes Equal, round and reactive pupils present Neck/C-Spine: COMMON NORMALS: full ROM GENERAL: Yes normal visual inspection and Yes trachea midline Resp: COMMON NORMALS: normal respiratory effort, No retractions, No use of acc essory muscles and clear to auscultation bilaterally EFFORT & INSPECTION: Yes able to speak in complete sentences, Yes symmetric chest movement and No tachypneic AUSCULTATION: clear to auscultation bilaterally OTHER: -on RA Cardio: COMMON NORMALS: regular rate, regular rhythm, S1 normal heart sound present, S2 normal heart sound present and No murmurs present (Cardio) RATE: regular rate RHYTHM: regular rhythm HEART SOUNDS: S1 normal heart sound present and S2 normal heart sound present GI: COMMON NORMALS: Normal to inspection, nondistended, normoactive bowel sounds present, Soft to palpation and non-tender PALPATION: Yes Soft to palpation Extremity: COMMON NORMALS: normal to inspection, full ROM, no clubbing, cyanosis or edema and no pedal edema Neuro: COMMON NORMALS: moves all extremities, no focal motor deficits and no sensory deficits noted SENSORIUM/ORIENTATION: Yes alert Psych: COMMON NORMALS: mental status grossly normal, cooperative, normal affect and speech normal SPEECH: Yes normal speech Skin: COMMON NORMALS: no rashes or lesions noted, no jaundice, no petechiae and no mottling NARRATIVE SKIN EXAM: -thin skin, scattered bruising on upper extremities GENERAL SKIN EXAM: no rashes or lesions noted Urinary Catheter Management^: [place]: Cath Placed During This Visit: no Reason for Continuing Indwelling Catheter: Required Immobilization for Trauma or Surgery or Anesthesia Data : 07/14/20 14:15 07/14/20 05:55 A&P Assessment and plan (1) Nondisplaced fracture of neck of left femur: -s/p ORIF by Dr. Mckeon, POD # 3 -pain control as needed -fall precautions -PT/OT evaluations appreciated Status: Acute (2) Urinary tract infection due to ESBL Klebsiella: -Currently on imipenem per sensitivity profile, day 3/7 Status: Acute (3) Chronic kidney disease, stage III (moderate): -has known CKD stage 3 -baseline Cr is around 3 -continue to monitor renal function, avoid nephrotoxins, renally dose meds. Renal function does not appear to be improving, will consult nephrology -Had renal ultrasound done last month which showed markedly diminished velocities in the renal arteries which may be suggestive of proximal stenosis, unfortunately cannot do CTA due to renal function -Follows up with nephrology (Dr. 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 -May not be a good candidate for long-term anticoagulation given underlying anemia with need for transfusion of blood products, recurrent falls Status: Acute Qualifiers: Affected thrombotic vein of extremity: unspecified vein of extremity Chronicity: chronic DVT location: lower extremity Laterality: unspecified laterality Qualified Code(s): I82.509 - Chronic embolism and thrombosis of unspecified deep veins of unspecified lower extremity (6) Anemia: -With episodes of R sided epistaxis that required packing on 07/08 -Has known history of anemia and has had prior GI work-up which per patient was negative for any acute bleeding source -Prior admission last month for severe anemia with hemoglobin as low as 4 and requirement of transfusion of blood products -s/p 1 unit with improvement in Hg up to 10 (06/15) -continue to monitor H/H closely; noted drop today, may need transfusion of blood products Status: Chronic Qualifiers: Anemia type: unspecified type Qualified Code(s): D64.9 - Anemia, unspecified Additional A&P Information -Treated for COVID-19 infection last month -Recurrent falls, generalized weakness, physical deconditioning, previously had rhabdomyolysis which resolved; PT evaluations requested, strict fall precautions -Known history of hypertension, on oral antihypertensives -GERD; on PPI and carafate -Hyperlipidemia; continue statin -Skin cancer affecting L ear; currently undergoing treatment -Very hard of hearing; hearing slightly better on the R -underlying cognitive impairment; reorient as needed -hx of chronic diastolic CHF, no acute exacerbation though need to monitor for development of fluid overload as on gentle IVF hydration. Echo (05/2020): EF=62%, mild concentric LVH, mild AR, trace MR, trace TR -cardiac diet as tolerated -GI ppx with PPI -DVT ppx with SCDs -Dispo: [facility] -Code status: DNR/DNI -guarded prognosis given advanced age, underlying comorbidities, issues with bleeding vs. anticoagulation, continued renal impairment -son updated at bedside Attestations Medical Necessity Statement*: Patient requires hospitalization for continued management of renal impairment, worsening anemia, continued post-op care. Time Spent in Patient Care: 16 - 35 minutes (>than 50% of time spent in counselling and/or direct pt care on unit) . Coding Level of Care Code Acute Cut Off Saw Operator for g Fwd Exam Comprehensive Diagnoses Nondisplaced fracture of neck of left femur S72.002A Urinary tract infection due to ESBL Klebsiella N39.0; B96.89 Chronic kidney disease, stage III (moderate) N18.30 Chronic kidney disease stage 3 subtype: unspecified whether 3a or 3b Polyarteritis nodosa M30.0 DVT (deep venous thrombosis) I82.509 Affected thrombotic vein of extremity: unspecified vein of extremity Chronicity: chronic DVT location: lower extremity Laterality: unspecified laterality Anemia D64.9 Anemia type: unspecified type
--- NOTE | 2020-07-14 14:28 | P.CONIM_ITS ---
Providers/Reason For Consult Consulting Physican/Specialty*: ying tomlin md / telenephrology Reason for Consult*: BOOGIE on CKD stage 4 Attending Physician: Kaylin Thomas MD Primary Care Provider: Maricarmen Meza MD History of Present Illness History of Present Illness Good Alegre is a 80 year old male admitted w/ non-displaced fracture of left fracture. recent admission for epistaxis and anemia. 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 Right perineal vein DVT. Recent covid- 19 last month, htn, chronic diastolic dysfunction, gout, parathyroidism. From an ID perspective, COVID-19 in June, s/p remdesivir. had a bacterial PNA and cellulitis s/p zosyn and vanco transitioned to augmentin. recent e. faecalis bacteremia. post-hip ORIF developed ESBL UTI -impienem -pt now in hospital, confused, weak, not eating well. no sob, no cp, no stafford. + rash Review of Systems General: Reports: 10 or more systems reviewed and unremarkable except in HPI and below Narrative: weak, confused, poor appetite, subjective fevers, no diarrhea. no sob, no cp, + weight loss Meds/Allergies Home Medications and Allergies Home Medications Medication Instructions Recorded Confirmed Last Taken Type ondansetron HCl 4 mg tablet 4 mg PO BID PRN #30 tab 10/18/19 07/10/20 Unknown Rx cyanocobalamin (vitamin B-12) 1,000 mcg PO DAILY 06/15/20 07/10/20 07/08/20 History [Vitamin B-12] mirtazapine 30 mg PO BEDTIME 06/15/20 07/10/20 07/09/20 History sucralfate [Carafate] 1 gm PO BID #60 tab 06/18/20 07/10/20 07/09/20 Rx fluticasone propion-salmeterol 1 puff INHALATION BID.RESPIRATORY 06/24/20 07/10/20 07/09/20 Rx [Advair Diskus] #1 ea prednisone 20 mg PO DAILY #30 tab 06/24/20 07/10/20 07/09/20 Rx Enema Disposable 118 ml HI DAILY PRN 07/07/20 07/10/20 Unknown History Tubersol See Rx Instructions .ROUTE .COMPLEX 07/07/20 07/10/20 07/09/20 History acetaminophen [Tylenol] 325 mg PO PRN PRN 07/07/20 07/10/20 Unknown History albuterol sulfate [ProAir HFA] 1 puff INHALATION QID 07/07/20 07/10/20 07/09/20 History bisacodyl 10 mg HI DAILY PRN 07/07/20 07/10/20 Unknown History pravastatin 20 mg PO BEDTIME 07/07/20 07/10/20 07/09/20 History amlodipine 10 mg PO DAILY #30 tab 07/09/20 07/10/20 07/08/20 Rx hydralazine 25 mg PO TID #90 tab 07/09/20 07/10/20 07/09/20 Rx mycophenolate mofetil 500 mg PO BID #60 tab 07/09/20 07/10/20 07/09/20 Rx oxymetazoline [Afrin 4 spray NOSTRIL-R QID 2 Days ml 07/09/20 07/10/20 07/09/20 Rx (oxymetazoline)] pantoprazole 40 mg PO DAILY #30 tab 07/09/20 07/10/20 07/08/20 Rx sodium chloride [Saline Nose] 2 spray INTRANASAL TID #60 ml 07/09/20 07/10/20 07/09/20 Rx prednisone 5 mg PO DAILY 07/10/20 07/10/20 07/09/20 History Allergies Allergy/AdvReac Type Severity Reaction Status Date / Time No Known Allergies Allergy Verified 05/17/20 02:56 Current Medications Current Medications Generic Name Dose Route Start Last Admin Trade Name Freq PRN Reason Stop Dose Admin Hydrocodone Bitart/Acetaminophen 1 tab 07/11/20 14:01 07/13/20 11:14 [place] 5-325 Mg PO 1 tab Q6H PRN Administration MODERATE PAIN Albuterol/Ipratropium 3 ml 07/11/20 15:00 07/14/20 08:26 Duoneb INHALATION 3 ml Q6H.RESPIRATORY BLOSSOM Administration Amlodipine Besylate 10 mg 07/11/20 09:00 07/14/20 09:04 Norvasc PO 10 mg DAILY BLOSSOM Administration Atorvastatin Calcium 20 mg 07/10/20 21:00 07/13/20 22:10 Lipitor PO 20 mg BEDTIME BLOSSOM Administration Budesonide 0.5 mg 07/13/20 20:00 07/14/20 08:26 Pulmicort INHALATION 0.5 mg BID.RESPIRATORY BLOSSOM Administration Ferrous Gluconate 324 mg 07/12/20 08:00 07/14/20 09:05 Ferrous Gluconate PO 324 mg BREAKFAST BLOSSOM Administration Hydralazine HCl 50 mg 07/12/20 15:00 07/14/20 09:04 Apresoline PO 50 mg TID BLOSSOM Administration Imipenem/Cilastatin Sodium 250 100 mls @ 200 mls/hr 07/12/20 22:00 07/14/20 09:05 mg/ Sodium Chloride IV 200 mls/hr Q12H BLOSSOM Administration Protocol Metoprolol Tartrate 25 mg 07/12/20 18:00 07/14/20 09:05 Lopressor PO 25 mg BID BLOSSOM Administration Mirtazapine 30 mg 07/10/20 21:00 07/13/20 22:11 Remeron PO 30 mg BEDTIME BLOSSOM Administration Ondansetron HCl 4 mg 07/11/20 10:25 07/12/20 20:53 Zofran IVP 4 mg Q4H PRN Administration NAUSEA AND VOMITING Pantoprazole Sodium 40 mg 07/11/20 09:00 07/14/20 09:04 Protonix PO 40 mg DAILY BLOSSOM Administration Prednisone 20 mg 07/11/20 09:00 07/14/20 09:04 Prednisone PO 20 mg DAILY BLOSSOM Administration Fluticasone/Salmeterol 1 puff 07/10/20 20:00 07/14/20 08:26 Advair Diskus 250-50 INHALATION Not Given BID.RESPIRATORY BLOSSOM Sodium Chloride 2 spray 07/10/20 21:00 07/14/20 09:05 [place] Nasal [place] NASAL 2 spray TID BLOSSOM Administration Sucralfate 1 gm 07/10/20 18:00 07/14/20 09:04 Carafate PO 1 gm BID BLOSSOM Administration PFSH Acute PFSH: Medical History Anemia Chronic kidney disease, stage III (moderate) CRI (chronic renal insufficiency) Diarrhea Dyslipidemia Epistaxis Nasal packing removed with no evidence of rebleeding GERD (gastroesophageal reflux disease) Gout History of DVT (deep vein thrombosis) Hypertension Idiopathic parathyroidism Immunosuppression Inguinal hernia left 11/30/2016 Polyarteritis nodosa Skin cancer Vitamin D deficiency Surgical History H/O endoscopy History of hernia repair History of hip surgery Status post biopsy of kidney Family History Other Cancer Social History Smoking and tobacco status: never smoked Alcohol intake: never Marital status: Vitals/I&O/Wt Last Vital Signs Temp 98.1 F 07/14/20 10:41 Pulse 61 07/14/20 10:41 Resp 16 07/14/20 10:41 BP 127/67 07/14/20 10:41 Pulse Ox 97 07/14/20 10:41 07/13/20 07/14/20 07/14/20 22:59 06:59 14:59 Intake Total 460 / 800 480 / 480 Output Total 100 / 500 350 / 850 100 / 100 Balance 360 / 300 -350 / -50 380 / 380 Physical Exam Narrative: EXAM NARRATIVE: elderly frail man in bed, NARD vss heent- nc/at, eomi skin rash neck supple lungs clear heart reg abd soft, nt, nd, +BS ext no edema neuro- a,a, o x 1+ + mueller catheter Urinary Catheter Management^: Mueller: Cath Placed During This Visit: no Reason for Continuing Indwelling Catheter: Required Immobilization for Trauma or Surgery or Anesthesia A&P Additional A&P Information 80 yr old man 1. 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 -please get name and number of his liquor bridge operator helper, for us to get more information -check renal us -check phos, pth -save the vein 2. BOOGIE- likely from prerenal vs progression of CKD stage 4 vs infection related GN vs AIN from meds recs- renal us -repeat urine studies -give ivf -renal dose meds-dec bp meds, to inc renal perfusion -note pt was on enemas- hopefully not w/ phosphorus -check ck, though i doubt rhabdomyolysis meds reviewed Consult Attestations Medical Necessity Statement: boogie on ckd, infections, hip fx Time Spent in Patient Care: Greater than 35 minutes Coding Level of Care Code Acute Tour Actor for Elizabeth Ruiz
[2020-07-14 14:41] LABS: Hematocrit 28.6 % (42.0-52.0); Hemoglobin 8.3 g/dL (11.7-16.6)
--- NOTE | 2020-07-14 15:07 | US_ITS ---
WS: [id number] ULTRASOUND RENAL TECHNIQUE: Ultrasound examination of both kidneys. CLINICAL INFORMATION: rosemary COMPARISON: None. FINDINGS: RIGHT: Small volume kidneys bilaterally with increased echogenicity consistent with chronic medical r enal disease. Right Simple renal cyst right inferior pole measuring 2.7 x 2.4 x 2.6 cm. Additional tiny upper pole right renal cyst measuring 10 mm Echogenicity: Increased Cortical thickness: 1.2 cm; Normal. Hydronephrosis: None. Perinephric fluid: None. Right kidney measures: 8.6 cm x 3.2 cm x 3.9 cm. LEFT: Left kidney Echogenicity: Increased Cortical thickness: cm; Normal. Hydronephrosis: None. Perinephric fluid: None. Left kidney measures: 8.2 cm x 4.2 cm x 3.7 cm. Normal visualized aorta. Lund catheter. US/US renal BI* [id number] IMPRESSION: 1. Small volume kidneys bilaterally with increased echogenicity consistent wit h chronic medical renal disease. 2. No hydronephrosis. 3. Simple renal cyst right inferior pole measuring 2.7 x 2.4 x 2.6 cm 4. Lund catheter.
[2020-07-14] MEDS: sodium chloride 0.45% 1,000 ML 100 ML IV (15:52)
--- NOTE | 2020-07-14 16:12 | PC.NURSE ---
urine sample sent to lab for processing
[2020-07-14 16:45] LABS: Bilirubin Urine Neg (Negative); Blood Urine 2+ (Negative); Glucose Urine UA Norm (Normal); Ketones Urine Negative (Negative); Leukocyte Esterase Urine Trace (Negative); Nitrate Urine Negative (Negative); Protein Urine 2+ (Negative); Urine Appearance Hazy (CLEAR); Urine Color Yellow (Yellow); Urobilinogen Urine Norm (Negative); pH Urine 5 (5-7)
[2020-07-14 16:57] LABS: Coarse Granular Casts Urine 15-25 /lpf; Hyaline Casts Urine 55-80 /lpf
[2020-07-14 16:58] LABS: Add Urine Culture? No; Bacteria Urine 1+ /hpf; RBC Urine 0-4 /hpf (0-2); Squamous Epithelial Cell Urine 0-4 /hpf (0-5); WBC Urine 0-4 /hpf (0-5)
[2020-07-14 18:13] LABS: Potassium, Radom Urine 26 mmol/L; Urine Random Chloride 21 mmol/L; Urine Random Sodium 33 mmol/L
[2020-07-14] MEDS: atorvastatin 40 mg Tablet 20 MG PO (22:18)
[2020-07-14] MEDS: mirtazapine 30 mg Tablet PO (22:18)
[2020-07-14] MEDS: hyDRALAzine 50 mg Tablet 25 MG PO (22:19)
[2020-07-15] VITALS (13 sets, daily range): BP systolic 113–136; BP diastolic 63–75; PULSE 58–66; RESP 14–18; TEMP 36.3–37; O2SAT 92–97
[2020-07-15 01:53] LABS: Hepatitis C Virus Antibody Non-Reactive (Nonreactive)
[2020-07-15 02:54] LABS: Hemoglobin 7.1 g/dL (11.7-16.6); Lymphocytes # 0.2 10^3/uL (0.8-4.8); Lymphocytes % 5.7 %; Mean Corpuscular HGB Conc 29.6 g/dL (30.0-36.0); Mean Platelet Volume 10.5 fL (7.4-10.4); Monocytes # 0.2 10^3/uL (0.2-0.9); Monocytes % 4.7 %; Neutrophils # 3.42 10^3/uL (1.8-7.7); Neutrophils % 89.3 %; Nucleated Red Blood Cells % 0 %; Platelet Count 138 10^3/cmm (130-400); Red Blood Count 2.45 10^6/uL (4.1-5.3); Red Cell Distribution Width 16.8 % (12.1-15.1); White Blood Count 3.8 10^3/uL (4.0-10.0)
[2020-07-15 03:24] LABS: Alanine Aminotransferase < 5 U/L (0-41); Albumin Level 2.5 g/dL (3.5-5.2); Alkaline Phosphatase 56 IU/L (40-130); Anion Gap 16.8 (5-19); Aspartate Amino Transferase 13 U/L (0-40); Calcium 7.3 mg/dL (8.5-10.5); Carbon Dioxide 16 mmol/L (22-29); Chloride 105 mmol/L (98-107); Ferritin 531 ng/mL (30-400); Globulin 2.3 g/dL (1.3-4.6); Glucose 135 mg/dL (65-115); Iron 35 ug/dL (59-158); Magnesium 1.8 mg/dL (1.7-2.3); Osmolality Calculated 304 mOsm/kg (285-295); Phosphorus 5.5 mg/dL (2.5-4.5); Potassium 4.8 mmol/L (3.5-5.1); Sodium 133 mmol/L (136-145); Total Bilirubin 0.2 mg/dL (0.15-1.2); Total Iron Binding Capacity 106 mcg/dl; Total Protein 4.8 g/dL (6.6-8.7); Unsaturated Iron Binding 71 ug/dL (112-347)
[2020-07-15 03:31] LABS: Calcium 7.1 mg/dL (8.5-10.5); Parathyroid Hormone 231.8 pg/mL (15-65)
[2020-07-15 03:32] LABS: Blood Urea Nitrogen 84 mg/dL (8-23)
[2020-07-15] MEDS: sodium chloride 0.45% 1,000 ML 100 ML IV (04:28)
--- NOTE | 2020-07-15 07:26 | P.PN_ITS ---
Subjective Subjective: Interval history: more awake, developed some edema. not eating well. however, he says he will eat breakfast. Medications: Reviewed: Yes Medication Review Details: Current Medications Acetaminophen (Tylenol) 650 mg PO Q6H PRN PRN Reason: Mild/Mod Pain Or Temp >/= 101 Hydrocodone Bitart/Acetaminophen ([place] 5-325 Mg) 1 tab PO Q6H PRN PRN Reason: MODERATE PAIN Last Admin: 07/13/20 11:14 Dose: 1 tab Documented by: Albuterol/Ipratropium (Duoneb) 3 ml INHALATION Q6H.RESPIRATORY BLOSSOM Last Admin: 07/15/20 02:57 Dose: Not Given Documented by: Amlodipine Besylate (Norvasc) 10 mg PO DAILY BLOSSOM Last Admin: 07/14/20 09:04 Dose: 10 mg Documented by: Atorvastatin Calcium (Lipitor) 20 mg PO BEDTIME BLOSSOM Last Admin: 07/14/20 22:18 Dose: 20 mg Documented by: Budesonide (Pulmicort) 0.5 mg INHALATION BID.RESPIRATORY BLOSSOM Last Admin: 07/14/20 08:26 Dose: 0.5 mg Documented by: Ferrous Gluconate (Ferrous Gluconate) 324 mg PO BREAKFAST BLOSSOM Last Admin: 07/14/20 09:05 Dose: 324 mg Documented by: Hydralazine HCl (Apresoline) 25 mg PO TID BLOSSOM Last Admin: 07/14/20 22:19 Dose: 25 mg Documented by: Imipenem/Cilastatin Sodium 250 (mg/ Sodium Chloride) 100 mls @ 200 mls/hr IV Q12H BLOSSOM; Protocol Last Admin: 07/14/20 23:49 Dose: 200 mls/hr Documented by: Sodium Chloride (Sodium Chloride 0.45%) 1,000 mls @ 100 mls/hr IV .Q10H BLOSSOM Last Admin: 07/15/20 04:28 Dose: 100 mls/hr Documented by: Metoclopramide HCl (Reglan) 10 mg IVP ONCE PRN PRN Reason: N/V if zofran ineffective Metoprolol Tartrate (Lopressor) 25 mg PO BID BLOSSOM Last Admin: 07/14/20 18:16 Dose: 25 mg Documented by: Mirtazapine (Remeron) 30 mg PO BEDTIME BLOSSOM Last Admin: 07/14/20 22:18 Dose: 30 mg Documented by: Ondansetron HCl (Zofran) 4 mg IVP Q4H PRN PRN Reason: NAUSEA AND VOMITING Last Admin: 07/12/20 20:53 Dose: 4 mg Documented by: Pantoprazole Sodium (Protonix) 40 mg PO DAILY [facility] Last Admin: 07/14/20 09:04 Dose: 40 mg Documented by: Prednisone (Prednisone) 20 mg PO DAILY [facility] Last Admin: 07/14/20 09:04 Dose: 20 mg Documented by: Fluticasone/Salmeterol (Advair Diskus 250-50) 1 puff INHALATION BID.RESPIRATORY [facility] Last Admin: 07/15/20 02:57 Dose: Not Given Documented by: Sodium Chloride ([place] Nasal [place]) 2 spray NASAL TID [facility] Last Admin: 07/14/20 22:19 Dose: 2 spray Documented by: Sucralfate (Carafate) 1 gm PO BID [facility] Last Admin: 07/14/20 18:17 Dose: 1 gm Documented by: Vitals/I&O/Wt Last Vital Signs Temp 98.1 F 07/15/20 04:00 Pulse 60 07/15/20 04:00 Resp 16 07/15/20 04:00 BP 118/64 07/15/20 04:00 Pulse Ox 97 07/15/20 04:00 07/14/20 07/15/20 07/15/20 22:59 06:59 14:59 Intake Total 200 / 780 1100 / 1880 Output Total 200 / 300 350 / 650 Balance 0 / 480 750 / 1230 Physical Exam Narrative: EXAM NARRATIVE: elderly frail man in bed, NARD vss heent- nc/at, eomi skin rash neck supple lungs clear heart reg abd soft, nt, nd, +BS ext b/l calf edema neuro- a,a, o x 1-2- improved from yesterday + mueller catheter Urinary Catheter Management^: Mueller: Cath Placed During This Visit: no Reason for Continuing Indwelling Catheter: Required Immobilization for Trauma or Surgery or Anesthesia Data : 07/15/20 02:12 07/15/20 02:12 A&P Additional A&P Information 80 yr old man 1. 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 -please get name and number of his manager of compliance, for us to get more information -check renal us -save the vein 2. BOOGIE- likely from prerenal vs progression of CKD stage 4 vs infection related GN vs AIN from meds recs- renal us rt 8.6 cm. left 8.2 cm- b/l inc echogenicity- c/w CKD -repeat urine studies noted- 2+ prot, 2+ blood- however w/ mueller, 0-4 wbc and rbc. has granular and hyaline casts- c/w ATN vs prerenal azotemia -low ur na 33 noted- however, no improvement w/ ivf- and now w/ edema- and hypo natremia- d/c ivf -renal dose meds-cont to dec bp meds, to inc renal perfusion -note pt was on enemas- hopefully not w/ phosphorus -check ck, though i doubt rhabdomyolysis 3. anemia- ferritin 531, % sat 33- give ferrlecit -pt on steroids- eval for gi bleed - can anemia be from chronic disease and /or ZIMMER-monitor for bleeding 4. hyponatremia - d/c ivf- on /2 ns -likely from boogie -start na bicab pills 5. met acidosis- from NS ivf and CKD -d/c ivf and na bicarb pills 6. hyperphosphatemia- binder pth 231- check vit d levels -based on vit d level, replace vit d2 or d3 6. hypoalbuminemia, proteinuria- check lipid mprofile meds reviewed Attestations Medical Necessity Statement*: boogie, anemia, ckd. mper hospitalist Time Spent in Patient Care: 16 - 35 minutes Coding Level of Care Code Acute Senior Hydrogeologist for Elizabeth Ruiz
[2020-07-15 08:00] LABS: Creatine Phosphokinase 77 U/L (39-308)
[2020-07-15] MEDS: budesonide 0.5 mg/2 mL Neb INHALATION ×2 (08:00→21:44)
[2020-07-15] MEDS: ipratropium-albuterol 3 mL Neb INHALATION ×3 (08:00→21:44)
[2020-07-15] MEDS: hyDRALAzine 50 mg Tablet 10 MG PO ×3 (09:06→20:39)
[2020-07-15] MEDS: amlodipine 10 mg Tablet 2.5 MG PO (09:06)
[2020-07-15] MEDS: sodium bicarbonate 650 mg Tablet PO ×3 (09:06→20:39)
[2020-07-15] MEDS: predniSONE 20 mg Tablet PO (09:06)
[2020-07-15] MEDS: metoprolol tartrate 25 mg Tablet PO ×2 (09:06→18:07)
[2020-07-15] MEDS: saline nasal spray 44mL Btl 2 SPRAY NASAL ×3 (09:06→20:41)
[2020-07-15] MEDS: pantoprazole DR 40 mg Tablet PO (09:07)
--- NOTE | 2020-07-15 09:38 | PC.NURSE ---
Called patient's family Paul [phone], called patient's Rosemary [phone] and spoke with daughter Melissa, gave update on patient's condition. Spoke with patient's son Jake and gave update on patient's condition. Jake requested that PT see patient between 4-6 and he will help encourage his dad to participate and pain medication prior to PT. Nail Feeder spoke with Herberth with PT and he agreed to see patient between 4-6 and copy writer will administer pain medication prior to PT.
[2020-07-15] MEDS: ferric gluconate 125 MG in sodium chloride 0.9% (100 ml) 100 ML 110 MG IV (10:37)
--- NOTE | 2020-07-15 11:10 | PC.SOCIAL ---
IMM Updated Page 2 of IMM updated with patient's son Jake by phone. Initialed, dated, and timed and placed back in chart. Copy provided to patient's bedside.
--- NOTE | 2020-07-15 12:16 | PM.PN ---
Subjective Subjective: Interval history: Noted drop in Hg to 7.1, receiving IV iron. Poor appetite and oral intake. Renal impairment persists, had 30 mL urine output overnight, off IVF. Hemodynamically stable, afebrile, on RA. Will transfuse 1 unit of PRBCs. He is POD # 4 s/p ORIF. Seen during son's visit and second PT session of the day. He was able to get up with some assistance using walker for brief intervals, did have some dizziness initially which resolved. Seems more motivated and with increased activity, had less pain in L hip. Medications: Reviewed: Yes Medication Review Details: Active Medications Generic Name Dose Route Start Last Admin Trade Name Freq PRN Reason Stop Dose Admin Acetaminophen 650 mg 07/10/20 13:05 Tylenol PO Q6H PRN Mild/Mod Pain Or Temp >/= 101 Hydrocodone Bitart /Acetaminophen 1 tab 07/11/20 14:01 07/13/20 11:14 [employer] 5-325 Mg PO 1 tab Q6H PRN Administration MODERATE PAIN Albuterol/Ipratrop ium 3 ml 07/11/20 15:00 07/15/20 08:00 Duoneb INHALATION 3 ml Q6H.RESPIRATORY S CH Administration Amlodipine Besylat e 2.5 mg 07/15/20 09:00 07/15/20 09:06 Norvasc PO 2.5 mg DAILY BLOSSOM Administration Atorvastatin Calci um 20 mg 07/10/20 21:00 07/14/20 22:18 Lipitor PO 20 mg BEDTIME BLOSSOM Administration Budesonide 0.5 mg 07/13/20 20:00 07/15/20 08:00 Pulmicort INHALATION 0.5 mg BID.RESPIRATORY S CH Administration Hydralazine HCl 10 mg 07/15/20 09:00 07/15/20 09:06 Apresoline PO 10 mg TID BLOSSOM Administration Imipenem/Cilastati n Sodium 250 100 mls @ 200 mls /hr 07/12/20 22:00 07/15/20 09:07 mg/ Sodium Chlor gal[place] IV 200 mls/hr Q12H BLOSSOM Administration Protocol Ferric Sodium Gluc [place] 125 mg 110 mls @ 110 mls /hr 07/15/20 09:00 07/15/20 10:37 / Sodium Chlorid e IV 07/22/20 09:59 110 mls/hr Q24H BLOSSOM Administration Metoclopramide HCl 10 mg 07/11/20 07:56 Reglan IVP ONCE PRN N/V if zofran ine ffective Metoprolol Tartrat e 25 mg 07/12/20 18:00 07/15/20 09:06 Lopressor PO 25 mg BID BLOSSOM Administration Mirtazapine 30 mg 07/10/20 21:00 07/14/20 22:18 Remeron PO 30 mg BEDTIME BLOSSOM Administration Ondansetron HCl 4 mg 07/11/20 10:25 07/12/20 20:53 Zofran IVP 4 mg Q4H PRN Administration NAUSEA AND VOMITI NG Pantoprazole [place]od[place] m 40 mg 07/11/20 09:00 07/15/20 09:07 Protonix PO 40 mg DAILY BLOSSOM Administration Prednisone 20 mg 07/11/20 09:00 07/15/20 09:06 Prednisone PO 20 mg DAILY BLOSSOM Administration Fluticasone/Salmet stefan 1 puff 07/10/20 20:00 07/15/20 08:01 Advair Diskus 25 0-50 INHALATION Not Given BID.RESPIRATORY S CH Sodium Bicarbonate 650 mg 07/15/20 09:00 07/15/20 09:06 Sodium Bicarbona te PO 650 mg TID BLOSSOM Administration Sodium Chloride 2 spray 07/10/20 21:00 07/15/20 09:06 [place] Nasal [place]ra [place] NASAL 2 spray TID BLOSSOM Administration No Known Allergies Allergy (Verified 05/17/20 02:56) Vitals/I&O/Wt Last Vital Signs Temp 97.8 F 07/15/20 11:33 Pulse 62 07/15/20 11:33 Resp 16 07/15/20 11:33 BP 136/75 07/15/20 11:33 Pulse Ox 95 07/15/20 11:33 07/14/20 07/15/20 07/15/20 22:59 06:59 14:59 Intake Total 200 / 780 1200 / 1980 240 / 240 Output Total 200 / 300 350 / 650 475 / 475 Balance 0 / 480 850 / 1330 -235 / -235 Physical Exam Const: COMMON NORMALS: no acute distress and alert GENERAL APPEARANCE: cooperative and comfortable NUTRITIONAL APPEARANCE: thin ORIENTATION/CONSCIOUSNESS: Yes awake HENMT: COMMON NORMALS: normocephalic, atraumatic and moist oral mucous membranes HEAD & SCALP: normocephalic and atraumatic GENERAL EAR: hearing grossly impaired (Hearing better on the right) Eye: COMMON NORMALS: Equal, round and reactive pupils present, EOMs intact bilaterally and conjunctivae normal CONJUNCTIVA: Yes conjunctivae normal PUPIL: Yes Equal, round and reactive pupils present Neck/C-Spine: COMMON NORMALS: full ROM GENERAL: Yes normal visual inspection and Yes trachea midline Resp: COMMON NORMALS: normal respiratory effort, No retractions, No use of accessory muscles and clear to auscultation bilaterally EFFORT & INSPECTION: Yes able to speak in complete sentences, Yes symmetric chest movement and No tachypneic AUSCULTATION: clear to auscultation bilaterally OTHER: -on RA Cardio: COMMON NORMALS: regular rate, regular rhythm, S1 normal heart sound present, S2 normal heart sound present and No murmurs present (Cardio) RATE: regular rate RHYTHM: regular rhythm HEART SOUNDS: S1 normal heart sound present and S2 normal heart sound present GI: COMMON NORMALS: Normal to inspection, nondistended, normoactive bowel sounds present, Soft to palpation and non-tender PALPATION: Yes Soft to palpation Extremity: COMMON NORMALS: normal to inspection, full ROM, no clubbing, cyanosis or edema and no pedal edema NARRATIVE EXTREMITY EXAM: -clean dressing on lateral L hip, soft to palpation, no apparent hematoma Neuro: COMMON NORMALS: moves all extremities, no focal motor deficits and no sensory deficits noted SENSORIUM/ORIENTATION: Yes alert OTHER: -generally quite weak but motivated to participate in therapy Psych: COMMON NORMALS: mental status grossly normal, cooperative, normal affect and speech normal SPEECH: Yes normal speech Skin: COMMON NORMALS: no rashes or lesions noted, no jaundice, no petechiae and no mottling NARRATIVE SKIN EXAM: -thin skin, scattered bruising on upper extremities GENERAL SKIN EXAM: no rashes or lesions noted Urinary Catheter Management^: Lund: Cath Placed During This Visit: no Reason for Continuing Indwelling Catheter: Required Immobilization for Trauma or Surgery or Anesthesia Data : 07/15/20 13:10 07/15/20 02:12 A&P Assessment and plan (1) Chronic kidney disease, stage III (moderate): -has known CKD stage 3; 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 Renal function does not appear to be improving -Nephrology consult by Dr. Webb appreciated -Had renal ultrasound done last month which showed markedly diminished velocities in the renal arteries which may be suggestive of proximal stenosis, unfortunately cannot do CTA due to renal function. Repeat US shows small volume kidneys bilaterally with increased echogenicity consistent with chronic medical renal disease -urine lytes, repeat UA noted, CPK wnl, elevated PTH consistent with secondary hyperparathyroidism; check vitamin D -Follows up with nephrology (Dr. Earl Brown, ) at [facility] -off IVF; encourage oral hydration -has Lund catheter in place, continue to monitor Is & Os, assess daily for removal -on sodium bicarbonate -decreased BP meds to increase renal perfusion Status: Chronic Qualifiers: Chronic kidney disease stage 3 subtype: unspecified whether 3a or 3b Qualified Code(s): N18.30 - Chronic kidney disease, stage 3 unspecified (2) Anemia: -With episodes of R sided epistaxis that required packing on 07/08 -Has known history of anemia and has had prior GI work-up which per patient was negative for any acute bleeding source -Prior admission last month for severe anemia with hemoglobin as low as 4 and requirement of transfusion of blood products -s/p 1 unit with improvement in Hg up to 10 (06/15) -continue to monitor H/H closely; noted drop today, will transfuse 1 unit of PRBCs today -on IV iron, iron studies noted Status: Chronic Qualifiers: Anemia type: unspecified type Qualified Code(s): D64.9 - Anemia, unspecified (3) Nondisplaced fracture of neck of left femur: -s/p ORIF by Dr. Mckeon, POD # 4 -pain control as needed -fall precautions -PT/OT evaluations appreciated Status: Acute (4) Urinary tract infection due to ESBL Klebsiella: -Currently on imipenem per sensitivity profile, day 4/7 Status: Acute (5) Polyarteritis nodosa: -follows up with nephrology -on oral steroids -CellCept on hold pending completion of antibiotic course Status: Chronic (6) DVT (deep venous thrombosis): -AC on hold given underlying anemia -plan to resume at least low dose Eliquis if possible -Found to have right perineal vein thrombosis on venous duplex done on 9/5/20. -May not be a good candidate for long-term anticoagulation given underlying anemia with need for transfusion of blood products, recurrent falls Status: Acute Qualifiers: Affected thrombotic vein of extremity: unspecified vein of extremity Chronicity: chronic DVT location: lower extremity Laterality: unspecified laterality Qualified Code(s): I82.509 - Chronic embolism and thrombosis of unspecified deep veins of unspecified lower extremity Additional A&P Information -Treated for COVID-19 infection last month -Recurrent falls, generalized weakness, physical deconditioning, previously had rhabdomyolysis which resolved; PT evaluation appreciated, strict fall precautions -Known history of hypertension, on oral antihypertensives -GERD; on PPI and carafate -Hyperlipidemia; continue statin -Skin cancer affecting L ear; currently undergoing treatment -Very hard of hearing; hearing slightly better on the R -underlying cognitive impairment; reorient as needed -hx of chronic diastolic CHF, no acute exacerbation, off IVF. Echo (05/2020): EF=62%, mild concentric LVH, mild AR, trace MR, trace TR -cardiac diet as tolerated -GI ppx with PPI -DVT ppx with SCDs, no AC due to bleeding risk -Dispo: [facility] -Code status: DNR/DNI -guarded prognosis given advanced age, underlying comorbidities, issues with bleeding vs. anticoagulation, continued renal impairment -son updated at bedside Attestations Medical Necessity Statement*: Patient requires hospitalization for continued management of acute renal impairment, worsening anemia. Time Spent in Patient Care: 16 - 35 minutes (>than 50% of time spent in counselling and/or direct pt care on unit). Coding Level of Care Code Acute Installation Manager for g Fwd Exam Comprehensive Diagnoses Chronic kidney disease, stage III (moderate) N18.30 Chronic kidney disease stage 3 subtype: unspecified whether 3a or 3b Anemia D64.9 Anemia type: unspecified type Nondisplaced fracture of neck of left femur S72.002A Urinary tract infection due to ESBL Klebsiella N39.0; B96.89 Polyarteritis nodosa M30.0 DVT (deep venous thrombosis) I82.509 Affected thrombotic vein of extremity: unspecified vein of extremity Chronicity: chronic DVT location: lower extremity Laterality: unspecified laterality
[2020-07-15 13:02] LABS: Glucose Point of Care 167 mg/dL (70-110)
[2020-07-15 13:18] LABS: Eosinophils # 0.1 10^3/uL (0.0-0.8); Eosinophils % 1.4 %; Hemoglobin 8.5 g/dL (11.7-16.6); Lymphocytes # 0.3 10^3/uL (0.8-4.8); Lymphocytes % 5.2 %; Mean Corpuscular HGB Conc 28.3 g/dL (30.0-36.0); Mean Corpuscular Volume 102.4 fL (80-94); Mean Platelet Volume 10.5 fL (7.4-10.4); Monocytes # 0.4 10^3/uL (0.2-0.9); Monocytes % 5.7 %; Neutrophils # 5.51 10^3/uL (1.8-7.7); Neutrophils % 86.9 %; Nucleated Red Blood Cells % 0 %; Platelet Count 172 10^3/cmm (130-400); Red Blood Count 2.93 10^6/uL (4.1-5.3); Red Cell Distribution Width 16.8 % (12.1-15.1); White Blood Count 6.3 10^3/uL (4.0-10.0)
[2020-07-15] MEDS: HYDROcodone-acetaminophen 5-325 mg Tablet 1 TAB PO (16:07)
[2020-07-15 16:37] LABS: Glucose Point of Care 258 mg/dL (70-110)
--- NOTE | 2020-07-15 17:31 | PC.NURSE ---
Started administration of blood Unit #[id number]. paper charting for vitals per blood bank.
--- NOTE | 2020-07-15 17:40 | PC.NURSE ---
Patient's [id number] will be visiting patient tomorrow per Martha Nurse Electrical Plumbing Supervisor. Her name is Isi Alegre.
[2020-07-15] MEDS: sodium chloride 0.9% (100 ml) 100 ML 50 ML (18:07)
[2020-07-15] MEDS: atorvastatin 40 mg Tablet 20 MG PO (20:39)
[2020-07-15] MEDS: mirtazapine 30 mg Tablet PO (20:39)
[2020-07-15 22:58] LABS: Hematocrit 29.9 % (42.0-52.0); Hemoglobin 9.1 g/dL (11.7-16.6)
[2020-07-16] VITALS (11 sets, daily range): BP systolic 130–158; BP diastolic 70–83; PULSE 59–68; RESP 14–18; TEMP 36.4–36.9; O2SAT 93–97
[2020-07-16 03:00] LABS: Hematocrit 31.2 % (42.0-52.0); Hemoglobin 9.6 g/dL (11.7-16.6); Lymphocytes # 0.3 10^3/uL (0.8-4.8); Lymphocytes % 5.6 %; Mean Corpuscular HGB Conc 30.8 g/dL (30.0-36.0); Mean Corpuscular Hemoglobin 29.1 pg (28.0-34.0); Mean Corpuscular Volume 94.5 fL (80-94); Mean Platelet Volume 10.5 fL (7.4-10.4); Monocytes # 0.2 10^3/uL (0.2-0.9); Monocytes % 4.6 %; Neutrophils # 4.47 10^3/uL (1.8-7.7); Nucleated Red Blood Cells % 0 %; Platelet Count 160 10^3/cmm (130-400); Red Cell Distribution Width 17.2 % (12.1-15.1)
[2020-07-16 03:18] LABS: Alanine Aminotransferase < 5 U/L (0-41); Albumin Level 2.8 g/dL (3.5-5.2); Alkaline Phosphatase 70 IU/L (40-130); Anion Gap 16.2 (5-19); Aspartate Amino Transferase 16 U/L (0-40); Calcium 7.5 mg/dL (8.5-10.5); Carbon Dioxide 17 mmol/L (22-29); Chloride 104 mmol/L (98-107); Globulin 2.4 g/dL (1.3-4.6); Glucose 144 mg/dL (65-115); Magnesium 1.7 mg/dL (1.7-2.3); Osmolality Calculated 304 mOsm/kg (285-295); Phosphorus 4.8 mg/dL (2.5-4.5); Potassium 5.2 mmol/L (3.5-5.1); Sodium 132 mmol/L (136-145); Total Bilirubin 0.2 mg/dL (0.15-1.2); Total Protein 5.2 g/dL (6.6-8.7)
[2020-07-16 03:20] LABS: Blood Urea Nitrogen 89 mg/dL (8-23)
[2020-07-16 04:18] LABS: 25 Hydroxy Vitamin D 14 ng/mL (30-100)
[2020-07-16] MEDS: sodium chloride 0.9% 1,000 ML 50 ML IV (05:09)
--- NOTE | 2020-07-16 07:26 | P.PN_ITS ---
Subjective Subjective: Interval history: more awake. no n/v/f/cp/stafford/c. DIFFICULTY SWALLOWING Medications: Reviewed: Yes Medication Review Details: Current Medications Acetaminophen (Tylenol) 650 mg PO Q6H PRN PRN Reason: Mild/Mod Pain Or Temp >/= 101 Hydrocodone Bitart/Acetaminophen ([place] 5-325 Mg) 1 tab PO Q6H PRN PRN Reason: MODERATE PAIN Last Admin: 07/15/20 16:07 Dose: 1 tab Documented by: Albuterol/Ipratropium (Duoneb) 3 ml INHALATION Q6H.RESPIRATORY BLOSSOM Last Admin: 07/16/20 03:35 Dose: Not Given Documented by: Amlodipine Besylate (Norvasc) 2.5 mg PO DAILY BLOSSOM Last Admin: 07/15/20 09:06 Dose: 2.5 mg Documented by: Atorvastatin Calcium (Lipitor) 20 mg PO BEDTIME BLOSSOM Last Admin: 07/15/20 20:39 Dose: 20 mg Documented by: Budesonide (Pulmicort) 0.5 mg INHALATION BID.RESPIRATORY BLOSSOM Last Admin: 07/15/20 21:44 Dose: 0.5 mg Documented by: Hydralazine HCl (Apresoline) 10 mg PO TID BLOSSOM Last Admin: 07/15/20 20:39 Dose: 10 mg Documented by: Imipenem/Cilastatin Sodium 250 (mg/ Sodium Chloride) 100 mls @ 200 mls/hr IV Q12H [facility]; Protocol Last Admin: 07/15/20 21:09 Dose: 200 mls/hr Documented by: Ferric Sodium Gluconate 125 mg (/ Sodium Chloride) 110 mls @ 110 mls/hr IV Q24H BLOSSOM Stop: 07/22/20 09:59 Last Admin: 07/15/20 10:37 Dose: 110 mls/hr Documented by: Sodium Chloride (Sodium Chloride 0.9%) 1,000 mls @ 50 mls/hr IV .Q20H BLOSSOM Last Admin: 07/16/20 05:09 Dose: 50 mls/hr Documented by: Metoclopramide HCl (Reglan) 10 mg IVP ONCE PRN PRN Reason: N/V if zofran ineffective Metoprolol Tartrate (Lopressor) 25 mg PO BID BLOSSOM Last Admin: 07/15/20 18:07 Dose: 25 mg Documented by: Mirtazapine (Remeron) 30 mg PO BEDTIME [facility] Last Admin: 07/15/20 20:39 Dose: 30 mg Documented by: Ondansetron HCl (Zofran) 4 mg IVP Q4H PRN PRN Reason: NAUSEA AND VOMITING Last Admin: 07/12/20 20:53 Dose: 4 mg Documented by: Pantoprazole Sodium (Protonix) 40 mg PO DAILY [facility] Last Admin: 07/15/20 09:07 Dose: 40 mg Documented by: Prednisone (Prednisone) 20 mg PO DAILY [facility] Last Admin: 07/15/20 09:06 Dose: 20 mg Documented by: Fluticasone/Salmeterol (Advair Diskus 250-50) 1 puff INHALATION BID.RESPIRATORY [facility] Last Admin: 07/15/20 21:45 Dose: Not Given Documented by: Sodium Bicarbonate (Sodium Bicarbonate) 650 mg PO TID [facility] Last Admin: 07/15/20 20:39 Dose: 650 mg Documented by: Sodium Chloride ([place] Nasal [place]) 2 spray NASAL TID [facility] Last Admin: 07/15/20 20:41 Dose: 2 spray Documented by: Vitals/I&O/Wt Last Vital Signs Temp 97.6 F 07/16/20 04:00 Pulse 63 07/16/20 04:00 Resp 14 07/16/20 04:00 BP 154/81 07/16/20 04:00 Pulse Ox 95 07/16/20 04:00 07/15/20 07/16/20 07/16/20 22:59 06:59 14:59 Intake Total 780 / 1600 240 / 1840 Output Total 645 / 1120 550 / 1670 Balance 135 / 480 -310 / 170 Physical Exam Narrative: EXAM NARRATIVE: elderly frail man sitting up in bed, NARD vss heent- nc/at, eomi skin rash stable neck supple lungs clear heart reg, no rub abd soft, nt, nd, +BS ext b/l no edema neuro- a,a, o x 2, - improving + mueller catheter Urinary Catheter Management^: Mueller: Cath Placed During This Visit: no Reason for Continuing Indwelling Catheter: Required Immobilization for Trauma or Surgery or Anesthesia Data : 07/16/20 02:38 07/16/20 02:38 A&P Additional A&P Information 80 yr old man s/p ORIF of left hip POD # 5. COVID -19 last month 1. CKD stage 4- i CALLED dr. Jeison Brown- [phone], engineering documentation specialist at [facility]- Pt was first diagnosed w/ P-ANCA in . since has been treated w/ steroids, cytoxan and cr down to 1.2 mg/dl. Pt was not good w/ f/u and then agreed to take cellcept- and cr approx 2 mg/dl. Over the last year his cr has been rising to close to 3 mg/dl. pt has been loosing weight and having anemia. Per Dr. Brown, the pt had a BM bx and a neg GI eval. He feels that his CKD is progressing- he thinks, it may be time to dec immunosupression. - renal us c./w advanced CKD- small kidneys and echogenic -save the vein protocol- will need a AVF soon- if pt would want chronic HD -would taper down steroids and restart cellcept 500 bid, wean up to 1000 bid 2. BOOGIE- likely from prerenal vs progression of CKD stage 4 vs infection related GN vs AIN from meds recs- renal us rt 8.6 cm. left 8.2 cm- b/l inc echogenicity- c/w CKD -repeat urine studies noted- 2+ prot, 2+ blood- however w/ mueller, 0-4 wbc and rbc. has granular and hyaline casts- c/w ATN vs prerenal azotemia -low ur na 33 noted- can give gentle NS ivf -renal dose meds- -note pt was on enemas- hopefully not w/ phosphorus -ck normal -pt will likely need Renal replacement therapy soon 3. anemia- ferritin 531, % sat 33- give ferrlecit and consider epo - i am concerned w/ recent DVT and COVID-19- pt is very hypercoaguable -pt on steroids- eval for gi bleed - can anemia be from chronic disease and /or PANCA-monitor for bleeding 4. hyponatremia - monitor on ns -likely from boogie -start na bicab pills 5. met acidosis- from NS ivf and CKD -d/c ivf and na bicarb pills 6. hyperphosphatemia- binder pth 231- check vit d levels -low vit d level, replace vit d2 6. hypoalbuminemia, proteinuria- check lipid profile 7. rt peroneal vein DVT - renal dose anti-coagulation meds reviewed Attestations 2 Medical Necessity Statement*: BOOGIE, CKD, P-ANCA, htn, anemia Time Spent in Patient Care: Greater than 35 minutes Coding Level of Care Code Acute Chemical Strength Tester for Elizabeth Ruiz
--- NOTE | 2020-07-16 07:43 | P.PN_ITS ---
Subjective Subjective: Interval history: Received 1 unit of PRBCs yesterday evening, Hg up to 9.6, noted worsening in renal function, had 870 mL urine output overnight. Cellcept has been resumed per Nephrology. Hemodynamically stable, afebrile, on RA. He is POD # 5 s/p L ORIF. No acute overnight events reported, ST evaluation requested due to noted difficulty swallowing. Medications: Reviewed: Yes Medication Review Details: Active Medications Generic Name Dose Route Start Last Admin Trade Name Freq PRN Reason Stop Dose Admin Acetaminophen 650 mg 07/10/20 13:05 Tylenol PO Q6H PRN Mild/Mod Pain Or Temp >/= 101 Hydrocodone Bitart /Acetaminophen 1 tab 07/11/20 14:01 07/15/20 16:07 [place] 5-325 Mg PO 1 tab Q6H PRN Administration MODERATE PAIN Albuterol/Ipratrop ium 3 ml 07/11/20 15:00 07/16/20 03:35 Duoneb INHALATION Not Given Q6H.RESPIRATORY [facility] Amlodipine Besylat e 2.5 mg 07/15/20 09:00 07/15/20 09:06 Norvasc PO 2.5 mg DAILY BLOSSOM Administration Atorvastatin Calci um 20 mg 07/10/20 21:00 07/15/20 20:39 Lipitor PO 20 mg BEDTIME BLOSSOM Administration Budesonide 0.5 mg 07/13/20 20:00 07/15/20 21:44 Pulmicort INHALATION 0.5 mg BID.RESPIRATORY S [facility] Administration Ergocalciferol 50,000 unit 07/16/20 07:45 Vitamin D2 PO Q7D [facility]OSSOM Hydralazine HCl 10 mg 07/15/20 09:00 07/15/20 20:39 Apresoline PO 10 mg TID BLOSSOM Administration Imipenem/Cilastati n Sodium 250 100 mls @ 200 mls /hr 07/12/20 22:00 07/15/20 21:09 mg/ Sodium Chlor galen IV 200 mls/hr Q12H [facility]OSSOM Administration Protocol Ferric Sodium Gluc k[place] 125 mg 110 mls @ 110 mls /hr 07/15/20 09:00 07/15/20 10:37 / Sodium Chlorid e IV 07/22/20 09:59 110 mls/hr Q24H [facility]OSSOM Administration Sodium Chloride 1,000 mls @ 75 ml s/hr 07/16/20 04:45 07/16/20 05:09 Sodium Chloride 0.9% IV 50 mls/hr .[id number] [facility] Administration Metoclopramide HCl 10 mg 07/11/20 07:56 Reglan IVP ONCE PRN N/V if zofran ine ffective Metoprolol Tartrat e 25 mg 07/12/20 18:00 07/15/20 18:07 Lopressor PO 25 mg BID BLOSSOM Administration Mirtazapine 30 mg 07/10/20 21:00 07/15/20 20:39 Remeron PO 30 mg BEDTIME [facility]OSSOM Administration Mycophenolate Mofe til 500 mg 07/16/20 09:00 Cellcept PO BID BLOSSOM Ondansetron HCl 4 mg 07/11/20 10:25 07/12/20 20:53 Zofran IVP 4 mg Q4H PRN Administration NAUSEA AND VOMITI NG Pantoprazole Sodiu m 40 mg 07/11/20 09:00 07/15/20 09:07 Protonix PO 40 mg DAILY [facility]OSS[facility] Administration Prednisone 10 mg 07/16/20 09:00 Prednisone PO DAILY BLOSS[facility] Fluticasone/Salmet stefan 1 puff 07/10/20 20:00 07/15/20 21:45 Advair Diskus 25 0-50 INHALATION Not Given BID.RESPIRATORY S [facility] Sodium Bicarbonate 650 mg 07/15/20 09:00 07/15/20 20:39 Sodium Bicarbona te PO 650 mg TID BLOSSOM Administration Sodium Chloride 2 spray 07/10/20 21:00 07/15/20 20:41 [place] Nasal Spra y NASAL 2 spray TID BLOSSOM Administration No Known Allergies Allergy (Verified 05/17/20 02:56) Vitals/I&O/Wt Last Vital Signs Temp 98.4 F 07/16/20 07:31 Pulse 59 L 07/16/20 07:31 Resp 17 07/16/20 07:31 BP 152/80 07/16/20 07:31 Pulse Ox 95 07/16/20 07:31 07/15/20 07/16/20 07/16/20 22:59 06:59 14:59 Intake Total 780 / 1600 240 / 1840 Output Total 645 / 1120 550 / 1670 Balance 135 / 480 -310 / 170 Physical Exam Const: COMMON NORMALS: no acute distress and alert GENERAL APPEARANCE: cooperative and comfortable NUTRITIONAL APPEARANCE: thin ORIENTATION/CONSCIOUSNESS: Yes awake HENMT: COMMON NORMALS: normocephalic, atraumatic and moist oral mucous membranes HEAD & SCALP: normocephalic and atraumatic GENERAL EAR: hearing grossly impaired (Hearing better on the right) Eye: COMMON NORMALS: Equal, round and reactive pupils present, EOMs intact bilaterally and conjunctivae normal CONJUNCTIVA: Yes conjunctivae normal PUPIL: Yes Equal, round and reactive pupils present Neck/C-Spine: COMMON NORMALS: full ROM GENERAL: Yes normal visual inspection and Yes trachea midline Resp: COMMON NORMALS: normal respiratory effort, No retractions, No use of accessory muscles and clear to auscultation bilaterally EFFORT & INSPECTION: Yes able to speak in complete sentences, Yes symmetric chest movement and No tachypneic AUSCULTATION: clear to auscultation bilaterally OTHER: -on RA Cardio: COMMON NORMALS: regular rate, regular rhythm, S1 normal heart sound pr esent, S2 normal heart sound present and No murmurs present (Cardio) RATE: regular rate RHYTHM: regular rhythm HEART SOUNDS: S1 normal heart sound present and S2 normal heart sound present GI: COMMON NORMALS: Normal to inspection, nondistended, normoactive bowel so unds present, Soft to palpation and non-tender PALPATION: Yes Soft to palpation Extremity: COMMON NORMALS: normal to inspection, full ROM, no clubbing, cyanosis or edema and no pedal edema NARRATIVE EXTREMITY EXAM: -clean dressing on lateral L hip, soft to palpation, no apparent hematoma Neuro: COMMON NORMALS: moves all extremities, no focal motor deficits and no sensory deficits noted SENSORIUM/ORIENTATION: Yes alert OTHER: -generally quite weak but motivated to participate in therapy Psych: COMMON NORMALS: mental status grossly normal, cooperative, normal affect and speech normal SPEECH: Yes normal speech Skin: COMMON NORMALS: no rashes or lesions noted, no jaundice, no petechiae and no mottling NARRATIVE SKIN EXAM: -thin skin, scattered bruising on upper extremities GENERAL SKIN EXAM: no rashes or lesions noted Urinary Catheter Management^: Lund: Cath Placed During This Visit: no Reason for Continuing Indwelling Catheter: Required Immobilization for Trauma or Surgery or Anesthesia Data : 07/16/20 02:38 07/16/20 02:38 A&P Assessment and plan (1) Chronic kidney disease, stage III (moderate): -has known CKD stage 3; 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 Renal function does not appear to be improving -Nephrology consult by Dr. Webb appreciated -Had renal ultrasound done last month which showed markedly diminished velocities in the renal arteries which may be suggestive of proximal stenosis, unfortunately cannot do CTA due to renal function. Repeat US shows small volume kidneys bilaterally with increased echogenicity consistent with chronic medical renal disease -urine lytes, repeat UA noted, CPK wnl, elevated PTH consistent with secondary hyperparathyroidism; low vitamin D indicating vitamin D deficiency, on supplementation -Follows up with nephrology (Dr. Earl Brown, ) at [facility] -off IVF; encourage oral hydration -has Lund catheter in place, continue to monitor Is & Os, assess daily for removal -on sodium bicarbonate -decreased BP meds to increase renal perfusion -cellcept resumed at 500 mg BID, steroids titrated -noted potential need for dialysis with progression of CKD Status: Chronic Qualifiers: Chronic kidney disease stage 3 subtype: unspecified whether 3a or 3b Qualified Code(s): N18.30 - Chronic kidney disease, stage 3 unspecified (2) Anemia: -With episodes of R sided epistaxis that required packing on 07/08 -Has known history of anemia and has had prior GI work-up which per patient was negative for any acute bleeding source -Prior admission last month for severe anemia with hemoglobin as low as 4 and requirement of transfusion of blood products -s/p 1 unit with improvement in Hg up to 10 (06/15) -continue to monitor H/H closely; noted drop today, s/p 1 unit of PRBCs (07/15) -on IV iron, iron studies noted Status: Chronic Qualifiers: Anemia type: unspecified type Qualified Code(s): D64.9 - Anemia, unspecified (3) Nondisplaced fracture of neck of left femur: -s/p ORIF by Dr. Mckeon, POD # 5 -pain control as needed -fall precautions -PT/OT evaluations appreciated Status: Acute (4) Urinary tract infection due to ESBL Klebsiella: -Currently on imipenem per sensitivity profile, day / -ID consultation by Dr. 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 -May not be a good candidate for long-term anticoagulation given underlying anemia with need for transfusion of blood products, recurrent falls Status: Acute Qualifiers: Affected thrombotic vein of extremity: unspecified vein of extremity Chronicity: chronic DVT location: lower extremity Laterality: unspecified laterality Qualified Code(s): I82.509 - Chronic embolism and thrombosis of unspecified deep veins of unspecified lower extremity Additional A&P Information -Treated for COVID-19 infection last month -Recurrent falls, generalized weakness, physical deconditioning, previously had rhabdomyolysis which resolved; PT evaluation appreciated, strict fall precautions -Known history of hypertension, on oral antihypertensives -GERD; on PPI and carafate -Hyperlipidemia; continue statin -Skin cancer affecting L ear; currently undergoing treatment -Very hard of hearing; hearing slightly better on the R -underlying cognitive impairment; reorient as needed -hx of chronic diastolic CHF, no acute exacerbation, off IVF. Echo (05/2020): EF=62%, mild concentric LVH, mild AR, trace MR, trace TR -ST evaluation done due to noted difficulty swallowing; no overt aspiration noted, regular consistently recommended as well as crushing meds which patient has declined, he wants to take his medications whole -cardiac diet as tolerated -GI ppx with PPI -DVT ppx with SCDs, no AC due to bleeding risk -Dispo: [facility] -Code status: DNR/DNI -guarded prognosis given advanced age, underlying comorbidities, issues with bleeding vs. anticoagulation, continued renal impairment Attestations Medical Necessity Statement*: Patient requires hospitalization for continued management of anemia, renal impairment, treatment of UTI. Time Spent in Patient Care: 16 - 35 minutes (>than 50% of time spent in counselling and/or direct pt care on unit) . Coding Level of Care Code Acute Alarm Mechanic for [facility] Fwd Exam Comprehensive Diagnoses Chronic kidney disease, stage III (moderate) N18.30 Chronic kidney disease stage 3 subtype: unspecified whether 3a or 3b Anemia D64.9 Anemia type: unspecified type Nondisplaced fracture of neck of left femur S72.002A Urinary tract infection due to ESBL Klebsiella N39.0; B96.89 Polyarteritis nodosa M30.0 DVT (deep venous thrombosis) I82.509 Affected thrombotic vein of extremity: unspecified vein of extremity Chronicity: chronic DVT location: lower extremity Laterality: unspecified laterality
--- NOTE | 2020-07-16 07:51 | PC.OT ---
OT note for 07/15: During AM chart review noted with low Hgb and high BUN. Will attempt again later as able.
[2020-07-16 09:28] LABS: Anti-streptolysin O <50 IU/mL (<200)
[2020-07-16] MEDS: pantoprazole DR 40 mg Tablet PO (10:32)
[2020-07-16] MEDS: sodium bicarbonate 650 mg Tablet PO ×3 (10:32→20:56)
[2020-07-16] MEDS: amlodipine 10 mg Tablet 2.5 MG PO (10:32)
[2020-07-16] MEDS: ergocalciferol (vitamin D2) 50,000 Unit Capsule 50000 UNIT PO (10:33)
[2020-07-16] MEDS: hyDRALAzine 50 mg Tablet 10 MG PO ×3 (10:33→20:55)
[2020-07-16] MEDS: metoprolol tartrate 25 mg Tablet PO ×2 (10:34→17:35)
[2020-07-16] MEDS: predniSONE 10 mg Tablet PO (10:34)
[2020-07-16] MEDS: saline nasal spray 44mL Btl 2 SPRAY NASAL ×3 (10:38→20:57)
[2020-07-16] MEDS: ferric gluconate 125 MG in sodium chloride 0.9% (100 ml) 100 ML 110 MG IV (11:34)
[2020-07-16 14:33] LABS: Anti-Double Strand DNA AB 28 IU/mL; SS A Ro Sjogrens Antibody <1.0 NEG AI (<1.0 NEG); SS-B/LA IGG <1.0 NEG AI (<1.0 NEG)
[2020-07-16] MEDS: ipratropium-albuterol 3 mL Neb INHALATION ×2 (15:07→20:31)
[2020-07-16] MEDS: HYDROcodone-acetaminophen 5-325 mg Tablet 1 TAB PO (16:02)
[2020-07-16] MEDS: budesonide 0.5 mg/2 mL Neb INHALATION (20:31)
[2020-07-16] MEDS: atorvastatin 40 mg Tablet 20 MG PO (20:51)
[2020-07-16] MEDS: mirtazapine 30 mg Tablet PO (20:55)
[2020-07-17] VITALS (9 sets, daily range): BP systolic 137–172; BP diastolic 78–85; PULSE 62–88; RESP 16–18; TEMP 36.3–36.6; O2SAT 94–96
[2020-07-17] MEDS: ipratropium-albuterol 3 mL Neb INHALATION ×2 (03:52→15:17)
[2020-07-17 06:11] LABS: Basophils % 0.2 %; Eosinophils % 0.8 %; Hemoglobin 10.3 g/dL (11.7-16.6); Lymphocytes # 0.3 10^3/uL (0.8-4.8); Lymphocytes % 6.5 %; Mean Corpuscular HGB Conc 30.3 g/dL (30.0-36.0); Mean Corpuscular Hemoglobin 28.5 pg (28.0-34.0); Mean Corpuscular Volume 93.9 fL (80-94); Mean Platelet Volume 10.3 fL (7.4-10.4); Monocytes # 0.3 10^3/uL (0.2-0.9); Monocytes % 6.1 %; Neutrophils % 85.3 %; Nucleated Red Blood Cells % 0 %; Platelet Count 176 10^3/cmm (130-400); Red Blood Count 3.62 10^6/uL (4.1-5.3); Red Cell Distribution Width 17.2 % (12.1-15.1); White Blood Count 5.3 10^3/uL (4.0-10.0)
[2020-07-17 06:29] LABS: Alanine Aminotransferase 9 U/L (0-41); Albumin Level 2.6 g/dL (3.5-5.2); Alkaline Phosphatase 68 IU/L (40-130); Aspartate Amino Transferase 27 U/L (0-40); Blood Urea Nitrogen 79 mg/dL (8-23); Calcium 7.8 mg/dL (8.5-10.5); Carbon Dioxide 17 mmol/L (22-29); Chloride 105 mmol/L (98-107); Globulin 2.6 g/dL (1.3-4.6); Glucose 92 mg/dL (65-115); Magnesium 1.7 mg/dL (1.7-2.3); Osmolality Calculated 301 mOsm/kg (285-295); Phosphorus 4.6 mg/dL (2.5-4.5); Sodium 134 mmol/L (136-145); Total Bilirubin 0.2 mg/dL (0.15-1.2); Total Protein 5.2 g/dL (6.6-8.7)
[2020-07-17 06:50] LABS: Anion Gap 17.1 (5-19); Potassium 5.1 mmol/L (3.5-5.1)
[2020-07-17] MEDS: sodium chloride 0.9% 1,000 ML 50 ML IV (08:14)
[2020-07-17] MEDS: ferric gluconate 125 MG in sodium chloride 0.9% (100 ml) 100 ML 110 MG IV (08:21)
[2020-07-17] MEDS: pantoprazole DR 40 mg Tablet PO (08:29)
[2020-07-17] MEDS: metoprolol tartrate 25 mg Tablet PO ×2 (08:29→17:23)
[2020-07-17] MEDS: predniSONE 10 mg Tablet PO (08:30)
[2020-07-17] MEDS: sodium bicarbonate 650 mg Tablet PO ×3 (08:30→22:39)
[2020-07-17] MEDS: hyDRALAzine 50 mg Tablet 10 MG PO ×2 (08:36→14:03)
[2020-07-17] MEDS: amlodipine 10 mg Tablet 2.5 MG PO (08:39)
[2020-07-17] MEDS: saline nasal spray 44mL Btl 2 SPRAY NASAL ×3 (08:41→22:38)
--- NOTE | 2020-07-17 09:16 | PC.OT ---
OT treatment attempted this morning. Pt was very tired and could not keep his eyes open. Pt stated that he didn't want to do anything, and mumbled something else unintelligible. Will attempt again later. Co-sign: NILS Brothers/Vladislav
[2020-07-17 11:27] LABS: Anti-Nuclear Antibody Pattern Nuclear, Speckled; Anti-Nuclear Antibody Screen POSITIVE (NEGATIVE)
--- NOTE | 2020-07-17 11:45 | P.PN_ITS ---
Subjective Subjective: Interval history: no complaints Medications: Reviewed: Yes Vitals/I&O/Wt Last Vital Signs Temp 97.5 F L 07/17/20 11:32 Pulse 70 07/17/20 11:32 Resp 18 07/17/20 11:32 BP 172/85 07/17/20 11:32 Pulse Ox 96 07/17/20 11:32 07/16/20 07/17/20 07/17/20 22:59 06:59 14:59 Intake Total 120 / 810 1100 / 1910 360 / 360 Output Total 300 / 700 700 / 1400 600 / 600 Balance -180 / 110 400 / 510 -240 / -240 Physical Exam Extremity: GENERAL: No edema Urinary Catheter Management^: Lund: Cath Placed During This Visit: no Reason for Continuing Indwelling Catheter: Acute Urinary Retention or Obstruction Data : 07/17/20 05:36 07/17/20 05:36 Micro: Microbiology 07/11/20 12:34 Blood Culture - Final Blood NO GROWTH AFTER 5 DAYS 07/11/20 12:40 Blood Culture - Final Blood NO GROWTH AFTER 5 DAYS A&P Additional A&P Information 1. Acute kidney injury, chronic kidney disease due to ZIMMER. Renal function and urine output improved today 2. Klebsiella UTI - continuing antibiotics 3. Metabolic acidosis - continue sodium bicarboate 4. Anemia - continue IV iron Rec: outpatient nephrology follow-up after discharge Attestations Medical Necessity Statement*: per primary service Time Spent in Patient Care: 16 - 35 minutes Coding Level of Care Code Acute Soaping Department Supervisor for Elizabeth Ruiz
--- NOTE | 2020-07-17 11:49 | PC.SOCIAL ---
IMM Updated Updated pt on Pg 2 IMM. No questions voiced. Signed, dated, & timed the copy in chart.
--- NOTE | 2020-07-17 12:33 | PC.CHAP ---
Pastoral Care Encounter/Spiritual Assessment Type of Contact [] Declined transfer car operator drier visit [] Patient/Family/Request visit [] Outpatient visit [xx] Follow-up visit [] Physician referral [] Code/Alert [] Routine visit [] Staff referral [] Actively dying [xx] Patient sleeping [] Family support [] [] Out of room [] Palliative care [] [] Receiving care in room [] Pre-surgical visit [] Trauma [xx] Long length of stay [] ICU visit [] Other: Follow up needed Relational/Emotional Strength [] Patient feels connected with others/family/visitors/staff [] Distress [] Loneliness/isolation [] Abandonment Spirituality of Patient [] Person of Yumiko [] Attends Hoahaoism of their Yumiko [] Believes in Prayer [] Reads Bible or Taoist materials [] There are Spiritual issues to be addressed Pulmonologist Intensivist Interventions [] Prayer [] Active listening [] Non-anxious presence [] Spiritual/emotional support [] Crisis/trauma care [] Spiritual counseling [] Bereavement support [] Provided bereavement packet [] Provided Bible/devotional materials [] Provided toy/stuffed animal, coloring book to patient or family member [] Provided Communion [] Anointing/[place] [] Salvation [] Completed spiritual assessment [] Other: Impact on Illness or Injury [] Angry [] Fearful [] Anxious [] Often cries [] Exhaustion [] Unable to work [] Unable to attend spiritism [] Unable to walk/stand [] Unable to read [] Unable to drive [] Unable to eat/drink [] Unable to sleep [] Unable to be with family [] Patient intubated [] Other: Summary Pt has been in hospital a week. He was asleep at time of follow up visit. Will follow up later. Time spent with patient 2 minutes Pulmonologist Intensivist Pamela Foss
--- NOTE | 2020-07-17 13:37 | P.PN_ITS ---
Subjective Subjective: Interval history: Had 700 mL urine output overnight, noted improvement in electrolytes and renal function this AM. Resting quietly in bed, has been more active in terms of out of bed activity, no complaints currently. He is POD # 5 s/p L ORIF. Medications: Reviewed: Yes Medication Review Details: Active Medications Generic Name Dose Route Start Last Admin Trade Name Freq PRN Reason Stop Dose Admin Acetaminophen 650 mg 07/10/20 13:05 Tylenol PO Q6H PRN Mild/Mod Pain Or Temp >/= 101 Hydrocodone Bitart /Acetaminophen 1 tab 07/11/20 14:01 07/16/20 16:02 [place] 5-325 Mg PO 1 tab Q6H PRN Administration MODERATE PAIN Albuterol/Ipratrop ium 3 ml 07/11/20 15:00 07/17/20 09:03 Duoneb INHALATION Not Given Q6H.RESPIRATORY S CH Amlodipine Besylat e 2.5 mg 07/15/20 09:00 07/17/20 08:39 Norvasc PO 2.5 mg DAILY BLOSSOM Administration Atorvastatin Calci um 20 mg 07/10/20 21:00 07/16/20 20:51 Lipitor PO 20 mg BEDTIME BLOSSOM Administration Budesonide 0.5 mg 07/13/20 20:00 07/17/20 09:02 Pulmicort INHALATION Not Given BID.RESPIRATORY S CH Ergocalciferol 50,000 unit 07/16/20 09:00 07/16/20 10:33 Vitamin D2 PO 50,000 unit Q7D BLOSSOM Administration Hydralazine HCl 10 mg 07/15/20 09:00 07/17/20 08:36 Apresoline PO 10 mg TID BLOSSOM Administration Imipenem/Cilastati n Sodium 250 100 mls @ 200 mls /hr 07/12/20 22:00 07/17/20 10:03 mg/ Sodium Chlor galen IV 200 mls/hr Q12H BLOSSOM Administration Protocol Ferric Sodium Gluc kimberlee 125 mg 110 mls @ 110 mls /hr 07/15/20 09:00 07/17/20 08:21 / Sodium Chlorid e IV 07/22/20 09:59 110 mls/hr Q24H BLOSSOM Administration Sodium Chloride 1,000 mls @ 75 ml s/hr 07/16/20 04:45 07/17/20 08:14 Sodium Chloride 0.9% IV 50 mls/hr .[id number] BLOSSOM Administration Metoclopramide HCl 10 mg 07/11/20 07:56 Reglan IVP ONCE PRN N/V if zofran ine ffective Metoprolol Tartrat e 25 mg 07/12/20 18:00 07/17/20 08:29 Lopressor PO 25 mg BID BLOSSOM Administration Mirtazapine 30 mg 07/10/20 21:00 07/16/20 20:55 Remeron PO 30 mg BEDTIME BLOSSOM Administration Mycophenolate Mofe til 500 mg 07/16/20 09:00 07/17/20 08:29 Cellcept PO 500 mg BID BLOSSOM Administration Ondansetron HCl 4 mg 07/11/20 10:25 07/12/20 20:53 Zofran IVP 4 mg Q4H PRN Administration NAUSEA AND VOMITI NG Pantoprazole Sodiu m 40 mg 07/11/20 09:00 07/17/20 08:29 Protonix PO 40 mg DAILY BLOSSOM Administration Prednisone 10 mg 07/16/20 09:00 07/17/20 08:30 Prednisone PO 10 mg DAILY BLOSSOM Administration Fluticasone/Salmet stefan 1 puff 07/10/20 20:00 07/17/20 09:02 Advair Diskus 25 0-50 INHALATION Not Given BID.RESPIRATORY S CH Sodium Bicarbonate 650 mg 07/15/20 09:00 07/17/20 08:30 Sodium Bicarbona te PO 650 mg TID BLOSSOM Administration Sodium Chloride 2 spray 07/10/20 21:00 07/17/20 08:41 [place] Nasal Spra y NASAL 2 spray TID BLOSSOM Administration No Known Allergies Allergy (Verified 05/17/20 02:56) Vitals/I&O/Wt Last Vital Signs Temp 97.5 F L 07/17/20 11:32 Pulse 70 07/17/20 11:32 Resp 18 07/17/20 11:32 BP 172/85 07/17/20 11:32 Pulse Ox 96 07/17/20 11:32 07/16/20 07/17/20 07/17/20 22:59 06:59 14:59 Intake Total 120 / 810 1100 / 1910 600 / 600 Output Total 300 / 700 700 / 1400 600 / 600 Balance -180 / 110 400 / 510 0 / 0 Physical Exam Const: COMMON NORMALS: no acute distress and alert GENERAL APPEARANCE: 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 coordinator perative and comfortable NUTRITIONAL APPEARANCE: thin ORIE NTATION/CONSCIOUSNESS: Yes awake HENMT: COMMON NORMALS: normocephalic, atraumatic and moist oral mucous membra sydni HEAD & SCALP: normocephalic and atraumatic GENERAL EAR: hearing grossly impaired (Hearing better on the right) Eye: COMMON NORMALS: Equal, round and reactive pupils present, EOMs intact bi laterally and conjunctivae normal CONJUNCTIVA: Yes conjunctivae normal PUPIL: Yes Equal, round and reactive pupils present Neck/C-Spine: COMMON NORMALS: full ROM GENERAL: Yes normal visual insp ection and Yes trachea midline Resp: COMMON NORMALS: normal respiratory effort, No retractions, No use of accessory muscles and clear to auscultation bilaterally EFFORT & INSPECTION: Yes able to speak in complete sentences, Yes symmetric chest movement and No tachypneic AUSCULTATION: clear to auscultation bilaterally OTHER: -on RA Cardio: COMMON NORMALS: regular rate, regular rhythm, S1 normal heart sound present, S2 normal heart sound present and No murmurs present (Cardio) RATE: regular rate RHYTHM: regular rhythm HEART SOUNDS: S1 normal heart sound present and S2 normal heart sound present GI: COMMON NORMALS: Normal to inspection, nondistended, normoactive bowel sounds present, Soft to palpation and non-tender PALPATION: Yes Soft to palpation Extremity: COMMON NORMALS: normal to inspection, full ROM, no clubbing, cyanosis or edema and no pedal edema NARRATIVE EXTREMITY EXAM: -clean dressing on lateral L hip, soft to palpation, no apparent hematoma Neuro: COMMON NORMALS: moves all extremities, no focal motor deficits and no sensory deficits noted SENSORIUM/ORIENTATION: Yes alert OTHER: -generally quite weak but motivated to participate in therapy Psych: COMMON NORMALS: mental status grossly normal, cooperative, normal affect and speech normal SPEECH: Yes normal speech Skin: COMMON NORMALS: no rashes or lesions noted, no jaundice, no petechiae and no mottling NARRATIVE SKIN EXAM: -thin skin, scattered bruising on upper extremities GENERAL SKIN EXAM: no rashes or lesions noted Urinary Catheter Management^: Lund: Cath Placed During This Visit: no Reason for Continuing Indwelling Catheter: Acute Urinary Retention or Obstruction Data : 07/17/20 05:36 07/17/20 05:36 Micro: Microbiology 07/11/20 12:34 Blood Culture - Final Blood NO GROWTH AFTER 5 DAYS 07/11/20 12:40 Blood Culture - Final Blood NO GROWTH AFTER 5 DAYS A&P Assessment and plan (1) Chronic kidney disease, stage III (moderate): -has known CKD stage 3; 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 Renal function improving today -Nephrology consult appreciated -Had renal ultrasound done last month which showed markedly diminished velocities in the renal arteries which may be suggestive of proximal stenosis, unfortunately cannot do CTA due to renal function. Repeat US shows small volume kidneys bilaterally with increased echogenicity consistent with chronic medical renal disease -urine lytes, repeat UA noted, CPK wnl, elevated PTH consistent with secondary hyperparathyroidism; low vitamin D indicating vitamin D deficiency, on supplementation -Follows up with nephrology (Dr. Earl Brown, ) at [facility] -off IVF; encourage oral hydration -has Lund catheter in place, continue to monitor Is & Os, assess daily for removal -on sodium bicarbonate -decreased BP meds to increase renal perfusion -cellcept resumed at 500 mg BID (07/16), steroids titrated -noted potential need for dialysis with progression of CKD Status: Chronic Qualifiers: Chronic kidney disease stage 3 subtype: unspecified whether 3a or 3b Qualified Code(s): N18.30 - Chronic kidney disease, stage 3 unspecified (2) Anemia: -With episodes of R sided epistaxis that required packing on 07/08 -Has known history of anemia and has had prior GI work-up which per patient was negative for any acute bleeding source -Prior admission last month for severe anemia with hemoglobin as low as 4 and requirement of transfusion of blood products -s/p 1 unit with improvement in Hg up to 10 (06/15) -continue to monitor H/H closely; noted drop today, s/p 1 unit of PRBCs (07/15) -on IV iron, iron studies noted Status: Chronic Qualifiers: Anemia type: unspecified type Qualified Code(s): D64.9 - Anemia, unspecified (3) Nondisplaced fracture of neck of left femur: -s/p ORIF by Dr. Mckeon, POD # 6 -pain control as needed -fall precautions -PT/OT evaluations appreciated Status: Acute (4) Urinary tract infection due to ESBL Klebsiella: -Currently on imipenem per sensitivity profile, day 02/15 -ID consultation by Dr. 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 -May not be a good candidate for long-term anticoagulation given underlying anemia with need for transfusion of blood products, recurrent falls Status: Acute Qualifiers: Affected thrombotic vein of extremity: unspecified vein of extremity Chronicity: chronic DVT location: lower extremity Laterality: unspecified laterality Qualified Code(s): I82.509 - Chronic embolism and thrombosis of unspecified deep veins of unspecified lower extremity Additional A&P Information -Treated for COVID-19 infection last month -Recurrent falls, generalized weakness, physical deconditioning, previously had rhabdomyolysis which resolved; PT evaluation appreciated, strict fall pr ecautions -Known history of hypertension, on oral antihypertensives -GERD; on PPI and carafate -Hyperlipidemia; continue statin -Skin cancer affecting L ear; currently undergoing treatment -Very hard of hearing; hearing slightly better on the R -underlying cognitive impairment; reorient as needed -hx of chronic diastolic CHF, no acute exacerbation, off IVF. Echo (05/2020): EF=62%, mild concentric LVH, mild AR, trace MR, trace TR -ST evaluation done due to noted difficulty swallowing; no overt aspiration noted, regular consistently recommended as well as crushing meds which patient has declined, he wants to take his medications whole -cardiac diet as tolerated -GI ppx with PPI -DVT ppx with SCDs, no AC due to bleeding risk -Dispo: [facility] [place] -Code status: DNR/DNI -guarded prognosis given advanced age, underlying comorbidities, issues with bleeding vs. anticoagulation, continued renal impairment Attestations Medical Necessity Statement*: Patient requires hospitalization for continued management of acute renal impairment. Time Spent in Patient Care: 16 - 35 minutes (>than 50% of time spent in counselling and/or direct pt care on unit) . Coding Level of Care Code Acute Piano Tuner for Chg Fwd Exam Comprehensive Diagnoses Chronic kidney disease, stage III (moderate) N18.30 Chronic kidney disease stage 3 subtype: unspecified whether 3a or 3b Anemia D64.9 Anemia type: unspecified type Nondisplaced fracture of neck of left femur S72.002A Urinary tract infection due to ESBL Klebsiella N39.0; B96.89 Polyarteritis nodosa M30.0 DVT (deep venous thrombosis) I82.509 Affected thrombotic vein of extremity: unspecified vein of extremity Chronicity: chronic DVT location: lower extremity Laterality: unspecified laterality
[2020-07-17] MEDS: atorvastatin 40 mg Tablet 20 MG PO (22:36)
[2020-07-17] MEDS: hyDRALAzine 10 mg Tablet PO (22:37)
[2020-07-17] MEDS: mirtazapine 30 mg Tablet PO (22:38)
[2020-07-18] VITALS (14 sets, daily range): BP systolic 138–180; BP diastolic 74–95; PULSE 65–84; RESP 16–20; TEMP 36.6–37.3; O2SAT 91–96
[2020-07-18] MEDS: sodium chloride 0.9% 1,000 ML 50 ML IV (03:31)
[2020-07-18 06:19] LABS: Basophils % 0.2 %; Eosinophils # 0.1 10^3/uL (0.0-0.8); Eosinophils % 1.2 %; Hematocrit 34.5 % (42.0-52.0); Hemoglobin 10.9 g/dL (11.7-16.6); Lymphocytes # 0.4 10^3/uL (0.8-4.8); Lymphocytes % 5.8 %; Mean Corpuscular HGB Conc 31.6 g/dL (30.0-36.0); Mean Corpuscular Hemoglobin 29.1 pg (28.0-34.0); Mean Corpuscular Volume 92.2 fL (80-94); Monocytes # 0.3 10^3/uL (0.2-0.9); Monocytes % 5.3 %; Neutrophils # 5.21 10^3/uL (1.8-7.7); Neutrophils % 85.5 %; Nucleated Red Blood Cells % 0 %; Platelet Count 187 10^3/cmm (130-400); Red Blood Count 3.74 10^6/uL (4.1-5.3); Red Cell Distribution Width 16.5 % (12.1-15.1); White Blood Count 6.1 10^3/uL (4.0-10.0)
[2020-07-18] MEDS: ipratropium-albuterol 3 mL Neb INHALATION ×3 (07:59→20:10)
[2020-07-18 09:34] LABS: Anion Gap 17.5 (5-19); Calcium 8.3 mg/dL (8.5-10.5); Carbon Dioxide 17 mmol/L (22-29); Chloride 105 mmol/L (98-107); Glucose 84 mg/dL (65-115); Magnesium 1.7 mg/dL (1.7-2.3); Osmolality Calculated 302 mOsm/kg (285-295); Phosphorus 4.7 mg/dL (2.5-4.5); Potassium 5.5 mmol/L (3.5-5.1); Sodium 134 mmol/L (136-145)
--- NOTE | 2020-07-18 09:36 | PM.PN ---
Subjective Subjective: Interval history: no complaints mueller placed last evening - immediate 1200 ml urine output Medications: Reviewed: Yes Vitals/I&O/Wt Last Vital Signs Temp 99.1 F 07/18/20 08:00 Pulse 83 07/18/20 08:04 Resp 18 07/18/20 08:00 BP 180/95 07/18/20 08:00 Pulse Ox 93 07/18/20 08:00 07/17/20 07/18/20 07/18/20 22:59 06:59 14:59 Intake Total 240 / 940 965.000 / 1905.000 Output Total 350 / 950 1125 / 2075 Balance -110 / -10 -160.000 / -170.000 Physical Exam Extremity: GENERAL: No edema Urinary Catheter Management^: Mueller: Cath Placed During This Visit: no Reason for Continuing Indwelling Catheter: Required Immobilization for Trauma or Surgery or Anesthesia Data : 07/18/20 05:49 07/18/20 05:49 Other Labs: phos 4.7 A&P Additional A&P Information 1. Acute kidney injury, chronic kidney disease due to ZIMMER. Renal function and urine output improved today 2. Klebsiella UTI - continuing antibiotics, urine retention - mueller placed 3. Metabolic acidosis - increase sodium bicarbonate to QID 4. Anemia - complete IV iron load 5. Hyperkalemia - low potassium diet, repeat 6. Hypertension - increase hydralazine to 25 mg TID Rec: Begin gentle IVF hydration. Appears to be heading toward dialysis. If no improvement on Monday, discuss placement of tunneled hemodialysis catheter and initiation of dialysis. Attestations Medical Necessity Statement*: see above Time Spent in Patient Care: 16 - 35 minutes Coding Level of Care Code Acute Prototype Fabricator for Elizabeth Ruiz
[2020-07-18 09:59] LABS: Blood Urea Nitrogen 83 mg/dL (8-23)
[2020-07-18] MEDS: saline nasal spray 44mL Btl 2 SPRAY NASAL ×3 (10:07→21:28)
[2020-07-18] MEDS: metoprolol tartrate 25 mg Tablet PO ×2 (10:08→21:30)
[2020-07-18] MEDS: predniSONE 10 mg Tablet PO (10:08)
[2020-07-18] MEDS: sodium bicarbonate 650 mg Tablet PO ×3 (10:08→21:29)
[2020-07-18] MEDS: hyDRALAzine 10 mg Tablet PO (10:08)
[2020-07-18] MEDS: amlodipine 10 mg Tablet 2.5 MG PO (10:08)
[2020-07-18] MEDS: pantoprazole DR 40 mg Tablet PO (10:08)
[2020-07-18] MEDS: ferric gluconate 125 MG in sodium chloride 0.9% (100 ml) 100 ML 110 MG IV (10:09)
[2020-07-18 11:57] LABS: Glucose Point of Care 80 mg/dL (70-110)
--- NOTE | 2020-07-18 12:00 | PC.OT ---
Patient declined occupational therapy two times.
--- NOTE | 2020-07-18 14:12 | PM.PN ---
Subjective Subjective: Interval history: Overnight had 1125 mL urine output, blood pressure trending up, otherwise hemodynamically stable and afebrile. Renal function unchanged, stable hemoglobin. Declined to work with physical and occupational therapy today. He is POD # 7 s/p L ORIF. Resting quietly in bed. Medications: Reviewed: Yes Medication Review Details: Current Medications Generic Name Dose Route Start Last Admin Trade Name Freq PRN Reason Stop Dose Admin Hydrocodone Bitart /Acetaminophen 1 tab 07/11/20 14:01 07/16/20 16:02 [place] 5-325 Mg PO 1 tab Q6H PRN Administration MODERATE PAIN Albuterol/Ipratrop ium 3 ml 07/11/20 15:00 07/18/20 07:59 Duoneb INHALATION 3 ml Q6H.RESPIRATORY S CH Administration Amlodipine Besylat e 2.5 mg 07/15/20 09:00 07/18/20 10:08 Norvasc PO 2.5 mg DAILY BLOSSOM Administration Atorvastatin Calci um 20 mg 07/10/20 21:00 07/17/20 22:36 Lipitor PO 20 mg BEDTIME BLOSSOM Administration Ergocalciferol 50,000 unit 07/16/20 09:00 07/16/20 10:33 Vitamin D2 PO 50,000 unit Q7D BLOSSOM Administration Imipenem/Cilastati n Sodium 250 100 mls @ 200 mls /hr 07/12/20 22:00 07/18/20 10:07 mg/ Sodium Chlor galen IV 200 mls/hr Q12H BLOSSOM Administration Protocol Ferric Sodium Gluc kimberlee 125 mg 110 mls @ 110 mls /hr 07/15/20 09:00 07/18/20 10:09 / Sodium Chlorid e IV 07/22/20 09:59 110 mls/hr Q24H BLOSSOM Administration Sodium Chloride 1,000 mls @ 75 ml s/hr 07/16/20 04:45 07/18/20 03:32 Sodium Chloride 0.9% IV 75 mls/hr .[id number] BLOSSOM Infusion Metoprolol Tartrat e 25 mg 07/12/20 18:00 07/18/20 10:08 Lopressor PO 25 mg BID BLOSSOM Administration Mirtazapine 30 mg 07/10/20 21:00 07/17/20 22:38 Remeron PO 30 mg BEDTIME BLOSSOM Administration Mycophenolate Mofe til 500 mg 07/16/20 09:00 07/18/20 10:08 Cellcept PO 500 mg BID BLOSSOM Administration Ondansetron HCl 4 mg 07/11/20 10:25 07/12/20 20:53 Zofran IVP 4 mg Q4H PRN Administration NAUSEA AND VOMITI NG Pantoprazole Sodiu m 40 mg 07/11/20 09:00 07/18/20 10:08 Protonix PO 40 mg DAILY BLOSSOM Administration Prednisone 10 mg 07/16/20 09:00 07/18/20 10:08 Prednisone PO 10 mg DAILY BLOSSOM Administration Fluticasone/Salmet stefan 1 puff 07/10/20 20:00 07/18/20 08:00 Advair Diskus 25 0-50 INHALATION 1 puff BID.RESPIRATORY S CH Administration Sodium Chloride 2 spray 07/10/20 21:00 07/18/20 10:07 [place] Nasal Spra y NASAL 2 spray TID BLOSSOM Administration Vitals/I&O/Wt Last Vital Signs Temp 98.5 F 07/18/20 12:00 Pulse 71 07/18/20 12:00 Resp 17 07/18/20 12:00 BP 167/89 07/18/20 12:00 Pulse Ox 93 07/18/20 12:00 07/17/20 07/18/20 07/18/20 22:59 06:59 14:59 Intake Total 240 / 1050 1065.000 / 2115.000 240 / 240 Output Total 350 / 950 1125 / 2075 Balance -110 / 100 -60.000 / 40.000 240 / 240 Physical Exam Const: COMMON NORMALS: no acute distress and alert GENERAL APPEARANCE: cooperative and comfortable NUTRITIONAL APPEARANCE: thin ORIENTATION/CONSCIOUSNESS: Yes awake HENMT: COMMON NORMALS: normocephalic, atraumatic and moist oral mucous membranes HEAD & SCALP: normocephalic and atraumatic GENERAL EAR: hearing grossly impaired (Hearing better on the right) Eye: COMMON NORMALS: Equal, round and reactive pupils present, EOMs intact bilaterally and conjunctivae normal CONJUNCTIVA: Yes conjunctivae normal PUPIL: Yes Equal, round and reactive pupils present Neck/C-Spine: COMMON NORMALS: full ROM GENERAL: Yes normal visual inspection and Yes trachea midline Resp: COMMON NORMALS: normal respiratory effort, No retractions, No use of accessory muscles and clear to auscultation bilaterally EFFORT & INSPECTION: Yes able to speak in complete sentences, Yes symmetric chest movement and No tachypneic AUSCULTATION: clear to auscultation bilaterally OTHER: -on RA Cardio: COMMON NORMALS: regular rate, regular rhythm, S1 normal heart sound present, S2 normal heart sound present and No murmurs present (Cardio) RATE: regular rate RHYTHM: regular rhythm HEART SOUNDS: S1 normal heart sound present and S2 normal heart sound present GI: COMMON NORMALS: Normal to inspection, nondistended, normoactive bowel sounds present, Soft to palpation and non-tender PALPATION: Yes Soft to palpation Extremity: COMMON NORMALS: normal to inspection, full ROM, no clubbing, cyanosis or edema and no pedal edema NARRATIVE EXTREMITY EXAM: -clean dressing on lateral L hip, soft to palpation, no apparent hematoma Neuro: COMMON NORMALS: moves all extremities, no focal motor deficits and no sensory deficits noted SENSORIUM/ORIENTATION: Yes alert OTHER: -generally quite weak but motivated to participate in therapy Psych: COMMON NORMALS: mental status grossly normal, cooperative, normal affect and speech normal SPEECH: Yes normal speech Skin: COMMON NORMALS: no rashes or lesions noted, no jaundice, no petechiae and no mottling NARRATIVE SKIN EXAM: -thin skin, scattered bruising on upper extremities GENERAL SKIN EXAM: no rashes or lesions noted Urinary Catheter Management^: Lund: Cath Placed During This Visit: no Reason for Continuing Indwelling Catheter: Required Immobilization for Trauma or Surgery or Anesthesia Data : 07/18/20 05:49 07/18/20 05:49 A&P Assessment and plan (1) Chronic kidney disease, stage III (moderate): -has known CKD stage 3; 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 Renal function unchanged -Nephrology consult appreciated -Had renal ultrasound done last month which showed markedly diminished velocities in the renal arteries which may be suggestive of proximal stenosis, unfortunately cannot do CTA due to renal function. Repeat US shows small volume kidneys bilaterally with increased echogenicity consistent with chronic medical renal disease -urine lytes, repeat UA noted, CPK wnl, elevated PTH consistent with secondary hyperparathyroidism; low vitamin D indicating vitamin D deficiency, on supplementation -Follows up with nephrology (Dr. Earl Brown, ) at [facility] -off IVF; encourage oral hydration -has Lund catheter in place, continue to monitor Is & Os, assess daily for removal -on sodium bicarbonate -decreased BP meds to increase renal perfusion -cellcept resumed at 500 mg BID (07/16), steroids titrated -noted potential need for dialysis with progression of CKD Status: Chronic Qualifiers: Chronic kidney disease stage 3 subtype: unspecified whether 3a or 3b Qualified Code(s): N18.30 - Chronic kidney disease, stage 3 unspecified (2) Anemia: -With episodes of R sided epistaxis that required packing on 07/08 -Has known history of anemia and has had prior GI work-up which per patient was negative for any acute bleeding source -Prior admission last month for severe anemia with hemoglobin as low as 4 and requirement of transfusion of blood products -s/p 1 unit with improvement in Hg up to 10 (06/15) -continue to monitor H/H closely; noted drop today, s/p 1 unit of PRBCs (07/15) -on IV iron, iron studies noted Status: Chronic Qualifiers: Anemia type: unspecified type Qualified Code(s): D64.9 - Anemia, unspecified (3) Nondisplaced fracture of neck of left femur: -s/p ORIF by Dr. Mckeon, POD # 7 -pain control as needed -fall precautions -PT/OT evaluations appreciated Status: Acute (4) Urinary tract infection due to ESBL Klebsiella: -Currently on imipenem per sensitivity profile, day 03/17 -ID consultation by Dr. 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 Would hold off on this for now until sure no need for placement of temporary dialysis catheter -Found to have right perineal vein thrombosis on venous duplex done on 05/16/20. -May not be a good candidate for long-term anticoagulation given underlying anemia with need for transfusion of blood products, recurrent falls Status: Acute Qualifiers: Affected thrombotic vein of extremity: unspecified vein of extremity Chronicity: chronic DVT location: lower extremity Laterality: unspecified laterality Qualified Code(s): I82.509 - Chronic embolism and thrombosis of unspecified deep veins of unspecified lower extremity Additional A&P Information -Treated for COVID-19 infection last month -Recurrent falls, generalized weakness, physical deconditioning, previously had rhabdomyolysis which resolved; PT evaluation appreciated, strict fall precautions -Known history of hypertension, on oral antihypertensives -GERD; on PPI and carafate -Hyperlipidemia; continue statin -Skin cancer affecting L ear; currently undergoing treatment -Very hard of hearing; hearing slightly better on the R -underlying cognitive impairment; reorient as needed -hx of chronic diastolic CHF, no acute exacerbation, off IVF. Echo (05/2020): EF=62%, mild concentric LVH, mild AR, trace MR, trace TR -ST evaluation done due to noted difficulty swallowing; no overt aspiration noted, regular consistently recommended as well as crushing meds which patient has declined, he wants to take his medications whole -cardiac diet as tolerated -GI ppx with PPI -DVT ppx with SCDs, no AC due to bleeding risk -Dispo: [facility] -Code status: DNR/DNI -guarded prognosis given advanced age, underlying comorbidities, issues with bleeding vs. anticoagulation, continued renal impairment Attestations Medical Necessity Statement*: Patient requires hospitalization for continued management of acute on chronic renal impairment; needs continued close monitoring of renal function and urine output. Time Spent in Patient Care: 16 - 35 minutes (>than 50% of time spent in counselling and/or direct pt care on unit). Coding Level of Care Code Acute Color Repairer for g Fwd Exam Comprehensive Diagnoses Chronic kidney disease, stage III (moderate) N18.30 Chronic kidney disease stage 3 subtype: unspecified whether 3a or 3b Anemia D64.9 Anemia type: unspecified type Nondisplaced fracture of neck of left femur S72.002A Urinary tract infection due to ESBL Klebsiella N39.0; B96.89 Polyarteritis nodosa M30.0 DVT (deep venous thrombosis) I82.509 Affected thrombotic vein of extremity: unspecified vein of extremity Chronicity: chronic DVT location: lower extremity Laterality: unspecified laterality
[2020-07-18] MEDS: hyDRALAzine 25 mg Tablet PO ×2 (15:42→21:29)
[2020-07-18] MEDS: sodium chloride 0.45% 1,000 ML 75 ML IV (15:44)
[2020-07-18] MEDS: acetaminophen 325 mg Tablet 650 MG PO (17:48)
[2020-07-18] MEDS: atorvastatin 40 mg Tablet 20 MG PO (21:29)
[2020-07-18] MEDS: mirtazapine 30 mg Tablet PO (21:29)
[2020-07-19] VITALS (15 sets, daily range): BP systolic 140–178; BP diastolic 60–94; PULSE 69–79; RESP 16–19; TEMP 36.6–37.4; O2SAT 86–97
--- NOTE | 2020-07-19 01:42 | PC.NURSE ---
Blood pressure Patients blood pressure elevated 166/87. Doctor notified and new med given.
[2020-07-19] MEDS: ipratropium-albuterol 3 mL Neb INHALATION ×3 (02:00→20:24)
[2020-07-19] MEDS: cloNIDine 0.1 mg Tablet PO ×2 (02:23→21:38)
[2020-07-19 03:44] LABS: Basophils % 0.2 %; Eosinophils % 0.2 %; Hematocrit 33.4 % (42.0-52.0); Hemoglobin 10.5 g/dL (11.7-16.6); Lymphocytes # 0.3 10^3/uL (0.8-4.8); Lymphocytes % 6.8 %; Mean Corpuscular HGB Conc 31.4 g/dL (30.0-36.0); Mean Corpuscular Hemoglobin 28.9 pg (28.0-34.0); Mean Platelet Volume 9.4 fL (7.4-10.4); Monocytes # 0.3 10^3/uL (0.2-0.9); Neutrophils % 85.1 %; Nucleated Red Blood Cells % 0 %; Platelet Count 182 10^3/cmm (130-400); Red Blood Count 3.63 10^6/uL (4.1-5.3); Red Cell Distribution Width 16.3 % (12.1-15.1); White Blood Count 4.7 10^3/uL (4.0-10.0)
[2020-07-19 04:08] LABS: Alanine Aminotransferase 8 U/L (0-41); Albumin Level 2.6 g/dL (3.5-5.2); Alkaline Phosphatase 71 IU/L (40-130); Anion Gap 15.2 (5-19); Aspartate Amino Transferase 23 U/L (0-40); Blood Urea Nitrogen 80 mg/dL (8-23); Calcium 8.1 mg/dL (8.5-10.5); Carbon Dioxide 17 mmol/L (22-29); Chloride 106 mmol/L (98-107); Globulin 2.3 g/dL (1.3-4.6); Glucose 100 mg/dL (65-115); Osmolality Calculated 300 mOsm/kg (285-295); Potassium 5.2 mmol/L (3.5-5.1); Sodium 133 mmol/L (136-145); Total Bilirubin 0.2 mg/dL (0.15-1.2); Total Protein 4.9 g/dL (6.6-8.7)
[2020-07-19 04:09] LABS: Magnesium 1.6 mg/dL (1.7-2.3); Phosphorus 5.3 mg/dL (2.5-4.5)
--- NOTE | 2020-07-19 05:35 | PC.NURSE ---
Addendum entered by Alpa Antonio LPN 07/19/20 05:47: Patient had 800ml of urine output from mueller on tonights shift. Original Note: Shift summary Patient slept well throughout the night. He pulled out his IV to the right upper arm. His IV in the left upper arm is still good. His blood pressure has been elevated tonight. Doctor was notified and additional medication added. Patients blood pressure has been stable since administering the Clonidine prescribed. Patient seems confused this morning and does not know where is is. He states he wants to go to bed Redirected him he is in bed and at the hospital. Patient rubs his head with a confused look. He is now sleeping.
[2020-07-19] MEDS: sodium chloride 0.45% 1,000 ML 75 ML IV (06:22)
--- NOTE | 2020-07-19 06:46 | P.PN_ITS ---
Subjective Subjective: Interval history: confused, lethargic, weak. Medications: Reviewed: Yes Medication Review Details: Current Medications Acetaminophen (Tylenol) 650 mg PO Q6H PRN PRN Reason: Mild/Mod Pain Or Temp >/= 101 Last Admin: 07/18/20 17:48 Dose: 650 mg Documented by: Hydrocodone Bitart/Acetaminophen ([place] 5-325 Mg) 1 tab PO Q6H PRN PRN Reason: MODERATE PAIN Last Admin: 07/16/20 16:02 Dose: 1 tab Documented by: Albuterol/Ipratropium (Duoneb) 3 ml INHALATION Q6H.RESPIRATORY COUNTS INCLUDE 234 BEDS AT THE [facility] Last Admin: 07/19/20 02:00 Dose: 3 ml Documented by: Amlodipine Besylate (Norvasc) 2.5 mg PO DAILY COUNTS INCLUDE 234 BEDS AT THE [facility] Last Admin: 07/18/20 10:08 Dose: 2.5 mg Documented by: Atorvastatin Calcium (Lipitor) 20 mg PO BEDTIME COUNTS INCLUDE 234 BEDS AT THE [facility] Last Admin: 07/18/20 21:29 Dose: 20 mg Documented by: Clonidine HCl (Catapres) 0.1 mg PO BID COUNTS INCLUDE 234 BEDS AT THE [facility] Stop: 07/23/20 23:59 Ergocalciferol (Vitamin D2) 50,000 unit PO Q7D COUNTS INCLUDE 234 BEDS AT THE [facility] Last Admin: 07/16/20 10:33 Dose: 50,000 unit Documented by: Hydralazine HCl (Apresoline) 25 mg PO TID COUNTS INCLUDE 234 BEDS AT THE [facility] Last Admin: 07/18/20 21:29 Dose: 25 mg Documented by: Imipenem/Cilastatin Sodium 250 (mg/ Sodium Chloride) 100 mls @ 200 mls/hr IV Q12H COUNTS INCLUDE 234 BEDS AT THE [facility]; Protocol Last Infusion: 07/18/20 22:00 Dose: Infused Documented by: Ferric Sodium Gluconate 125 mg (/ Sodium Chloride) 110 mls @ 110 mls/hr IV Q24H COUNTS INCLUDE 234 BEDS AT THE [facility] Stop: 07/22/20 09:59 Last Infusion: 07/18/20 18:05 Dose: Infused Documented by: Sodium Chloride (Sodium Chloride 0.45%) 1,000 mls @ 75 mls/hr IV .Q41Q58L COUNTS INCLUDE 234 BEDS AT THE [facility] Last Admin: 07/19/20 06:22 Dose: 75 mls/hr Documented by: Metoclopramide HCl (Reglan) 10 mg IVP ONCE PRN PRN Reason: N/V if zofran ineffective Metoprolol Tartrate (Lopressor) 25 mg PO COUNTS INCLUDE 234 BEDS AT THE [facility] Last Admin: 07/18/20 21:30 Dose: 25 mg Documented by: Mirtazapine (Remeron) 30 mg PO BEDTIME COUNTS INCLUDE 234 BEDS AT THE [facility] Last Admin: 07/18/20 21:29 Dose: 30 mg Documented by: Mycophenolate Mofetil (Cellcept) 500 mg PO BID COUNTS INCLUDE 234 BEDS AT THE [facility] Last Admin: 07/18/20 17:45 Dose: 500 mg Documented by: Ondansetron HCl (Zofran) 4 mg IVP Q4H PRN PRN Reason: NAUSEA AND VOMITING Last Admin: 07/12/20 20:53 Dose: 4 mg Documented by: Pantoprazole Sodium (Protonix) 40 mg PO DAILY COUNTS INCLUDE 234 BEDS AT THE [facility] Last Admin: 07/18/20 10:08 Dose: 40 mg Documented by: Prednisone (Prednisone) 10 mg PO DAILY COUNTS INCLUDE 234 BEDS AT THE [facility] Last Admin: 07/18/20 10:08 Dose: 10 mg Documented by: Fluticasone/Salmeterol (Advair Diskus 250-50) 1 puff INHALATION BID.RESPIRATORY COUNTS INCLUDE 234 BEDS AT THE [facility] Last Admin: 07/18/20 20:10 Dose: 1 puff Documented by: Sodium Bicarbonate (Sodium Bicarbonate) 650 mg PO QID COUNTS INCLUDE 234 BEDS AT THE [facility] Last Admin: 07/18/20 21:29 Dose: 650 mg Documented by: Sodium Chloride ([place] Nasal [place]) 2 spray NASAL TID COUNTS INCLUDE 234 BEDS AT THE [facility] Last Admin: 07/18/20 21:28 Dose: 2 spray Documented by: Vitals/I&O/Wt Last Vital Signs Temp 98.1 F 07/19/20 04:00 Pulse 71 07/19/20 04:00 Resp 16 07/19/20 04:00 BP 140/60 07/19/20 04:56 Pulse Ox 91 07/19/20 04:00 07/18/20 07/18/20 07/19/20 14:59 22:59 06:59 Intake Total 240 / 240 1309.167 / 0500.658 5391 / 2549.167 Output Total 950 / 950 800 / 1750 Balance 240 / 240 359.167 / 599.167 200 / 799.167 Physical Exam Narrative: EXAM NARRATIVE: elderly frail man sitting up in bed, NARD vss heent- nc/at, eomi skin rash stable neck supple lungs ronchi b/l heart reg, no rub abd soft, nt, nd, +BS ext b/l min edema b/l neuro- a,confised, weak + mueller catheter Urinary Catheter Management^: Mueller: Cath Placed During This Visit: no Reason for Continuing Indwelling Catheter: Required Immobilization for Trauma or Surgery or Anesthesia Data : 07/19/20 03:23 07/19/20 03:23 US: My impression: small kidneys 8.6 cm and 8.2 cm. sept us Q of NATY. inc echogenicity b/l A&P Additional A&P Information 1. 1. CKD stage 4- i CALLED dr. 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 since has been treated w/ steroids, cytoxan and cr down to 1.2 mg/dl. Pt was not good w/ f/u and then agreed to take cellcept- and cr approx 2 mg/dl. Over the last year his cr has been rising to close to 3 mg/dl. pt has been loosing weight and having anemia. Per Dr. Brown, the pt had a BM bx and a neg GI eval. He feels that his CKD is progressing- he thinks, it may be time to dec immunosupression. - renal us c./w advanced CKD- small kidneys and echogenic -save the vein protocol- will need a AVF soon- if pt would want chronic HD -would taper down steroids and inc cellcept 500 tid, 2. Acute kidney injury, -improved uop w/ mueller start bicarb drip -consider Renal angiogram- will discuss w/ cardiology. however, i am not very hopeful that renal art stents will reverse much of BOOGIE on CKD -monitor chemistries and urine output 2. Klebsiella UTI - continuing antibiotics, urine retention - mueller placed 3. Metabolic acidosis - po and iv iron 4. Anemia - complete IV iron load. hgb abve 10- no epo 5. Hyperkalemia - low potassium diet, repeat 6. Hypertension - improved. on multiple meds. q of NATY 7. replace magnesium 8. phos binders and calcitriol 9. 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
--- NOTE | 2020-07-19 07:11 | PC.NURSE ---
Notified care nurse JOSHUA Hernández of patient's blood pressure 178/92
[2020-07-19] MEDS: ferric gluconate 125 MG in sodium chloride 0.9% (100 ml) 100 ML 110 MG IV (08:26)
[2020-07-19] MEDS: hyDRALAzine 25 mg Tablet PO ×3 (08:33→21:39)
[2020-07-19] MEDS: amlodipine 10 mg Tablet 2.5 MG PO (08:33)
[2020-07-19] MEDS: predniSONE 10 mg Tablet PO (08:33)
[2020-07-19] MEDS: calcitriol 0.25 mcg Capsule PO ×2 (08:33→17:46)
[2020-07-19] MEDS: metoprolol tartrate 25 mg Tablet PO ×2 (08:33→21:39)
[2020-07-19] MEDS: sodium bicarbonate 650 mg Tablet PO ×4 (08:33→21:39)
[2020-07-19] MEDS: pantoprazole DR 40 mg Tablet PO (08:33)
[2020-07-19] MEDS: sevelamer 800 mg Tablet PO ×3 (08:33→21:38)
[2020-07-19] MEDS: saline nasal spray 44mL Btl 2 SPRAY NASAL (08:34)
--- NOTE | 2020-07-19 10:30 | PC.SOCIAL ---
IMM Updated Page 2 of IMM updated with patient. He verbalizes understanding. Initialed, dated, and timed and placed in chart. Copy provided to patient.
--- NOTE | 2020-07-19 11:00 | PC.OT ---
Addendum entered by Aby Payne OT 07/19/20 11:02: Patient would not open his eyes more than a flutter when requested, and shook his head in response to request to participate. Original Note: Attempted to see patient for therapy. He declined participation.
--- NOTE | 2020-07-19 11:56 | PM.PN ---
Subjective Subjective: Interval history: Declined to participate in therapy today, had 1975 mL urine output overnight, stable Hg and renal function, low Mg, replacement ongoing. Afebrile, slightly hypertensive. Declined breakfast. He is POD # 8 s/p L ORIF. visited this afternoon, she is quite frail and did not seem to understand explaining the need for dialysis. She suggests speaking to their son Jake. Patient seems more despondent today and declined therapy. Medications: Reviewed: Yes Medication Review Details: Active Medications Generic Name Dose Route Start Last Admin Trade Name Freq PRN Reason Stop Dose Admin Acetaminophen 650 mg 07/10/20 13:05 07/18/20 17:48 Tylenol PO 650 mg Q6H PRN Administration Mild/Mod Pain Or Temp >/= 101 Hydrocodone Bitart /Acetaminophen 1 tab 07/11/20 14:01 07/16/20 16:02 [place] 5-325 Mg PO 1 tab Q6H PRN Administration MODERATE PAIN Albuterol/Ipratrop ium 3 ml 07/11/20 15:00 07/19/20 08:08 Duoneb INHALATION 3 ml Q6H.RESPIRATORY S CH Administration Amlodipine Besylat e 2.5 mg 07/15/20 09:00 07/19/20 08:33 Norvasc PO 2.5 mg DAILY BLOSSOM Administration Atorvastatin Calci um 20 mg 07/10/20 21:00 07/18/20 21:29 Lipitor PO 20 mg BEDTIME BLOSSOM Administration Calcitriol 0.25 mcg 07/19/20 09:00 07/19/20 08:33 Rocaltrol PO 0.25 mcg BID BLOSSOM Administration Clonidine HCl 0.1 mg 07/19/20 21:00 Catapres PO 07/23/20 23:59 BID BLOSSOM Ergocalciferol 50,000 unit 07/16/20 09:00 07/16/20 10:33 Vitamin D2 PO 50,000 unit Q7D BLOSSOM Administration Hydralazine HCl 25 mg 07/18/20 15:00 07/19/20 08:33 Apresoline PO 25 mg TID BLOSSOM Administration Ferric Sodium Gluc [place] 125 mg 110 mls @ 110 mls /hr 07/15/20 09:00 07/19/20 08:26 / Sodium Chlorid e IV 07/22/20 09:59 110 mls/hr Q24H BLOSSOM Administration Sodium Bicarbonate 75 meq/ 1,000 mls @ 90 ml s/hr 07/19/20 07:30 07/19/20 08:26 Sodium Chloride IV 90 mls/hr .Q11H7M BLOSSOM Administration Metoclopramide HCl 10 mg 07/11/20 07:56 Reglan IVP ONCE PRN N/V if zofran ine ffective Metoprolol Tartrat e 25 mg 07/18/20 21:00 07/19/20 08:33 Lopressor PO 25 mg BLOSSOM Administration Mirtazapine 30 mg 07/10/20 21:00 07/18/20 21:29 Remeron PO 30 mg BEDTIME BLOSSOM Administration Mycophenolate Mofe til 500 mg 07/19/20 09:00 07/19/20 08:33 Cellcept PO 500 mg TID BLOSSOM Administration Ondansetron HCl 4 mg 07/11/20 10:25 07/12/20 20:53 Zofran IVP 4 mg Q4H PRN Administration NAUSEA AND VOMITI NG Pantoprazole Sod[place] m 40 mg 07/11/20 09:00 07/19/20 08:33 Protonix PO 40 mg DAILY BLOSSOM Administration Prednisone 10 mg 07/16/20 09:00 07/19/20 08:33 Prednisone PO 10 mg DAILY BLOSSOM Administration Fluticasone/Salmet stefan 1 puff 07/10/20 20:00 07/19/20 08:10 Advair Diskus 25 0-50 INHALATION 1 puff BID.RESPIRATORY S CH Administration Sevelamer Carbonat e 800 mg 07/19/20 09:00 07/19/20 08:33 Renvela PO 800 mg TID BLOSSOM Administration Sodium Bicarbonate 650 mg 07/18/20 17:00 07/19/20 08:33 Sodium Bicarbona te PO 650 mg QID BLOSSOM Administration Sodium Chloride 2 spray 07/10/20 21:00 07/19/20 08:34 Dare Nasal Spra y NASAL 2 spray TID BLOSSOM Administration No Known Allergies Allergy (Verified 05/17/20 02:56) Vitals/I&O/Wt Last Vital Signs Temp 97.8 F 07/19/20 11:22 Pulse 69 07/19/20 11:22 Resp 16 07/19/20 11:22 BP 165/85 07/19/20 11:22 Pulse Ox 93 07/19/20 11:22 07/18/20 07/19/20 07/19/20 22:59 06:59 14:59 Intake Total 1309.167 / 2261.096 9859 / 2549.167 292 / 292 Output Total 950 / 950 800 / 1750 450 / 450 Balance 359.167 / 599.167 200 / 799.167 -158 / -158 Physical Exam Const: COMMON NORMALS: no acute distress and alert GENERAL APPEARANCE: cooperative and comfortable NUTRITIONAL APPEARANCE: thin ORIENTATION/CONSCIOUSNESS: Yes awake HENMT: COMMON NORMALS: normocephalic, atraumatic and moist oral mucous membranes HEAD & SCALP: normocephalic and atraumatic GENERAL EAR: hearing grossly impaired (Hearing better on the right) Eye: COMMON NORMALS: Equal, round and reactive pupils present, EOMs intact bilaterally and conjunctivae normal CONJUNCTIVA: Yes conjunctivae normal PUPIL: Yes Equal, round and reactive pupils present Neck/C-Spine: COMMON NORMALS: full ROM GENERAL: Yes normal visual inspection and Yes trachea midline Resp: COMMON NORMALS: normal respiratory effort, No retractions, No use of accessory muscles and clear to auscultation bilaterally EFFORT & INSPECTION: Yes able to speak in complete sentences, Yes symmetric chest movement and No tachypneic AUSCULTATION: clear to auscultation bilaterally OTHER: -on RA Cardio: COMMON NORMALS: regular rate, regular rhythm, S1 normal heart sound present, S2 normal heart sound present and No murmurs present (Cardio) RATE: regular rate RHYTHM: regular rhythm HEART SOUNDS: S1 normal heart sound present and S2 normal heart sound present GI: COMMON NORMALS: Normal to inspection, nondistended, normoactive bowel sounds present, Soft to palpation and non-tender PALPATION: Yes Soft to palpation Extremity: COMMON NORMALS: normal to inspection, full ROM, no clubbing, cyanosis or edema and no pedal edema NARRATIVE EXTREMITY EXAM: -clean dressing on lateral L hip, soft to palpation, no apparent hematoma Neuro: COMMON NORMALS: moves all extremities, no focal motor deficits and no sensory deficits noted SENSORIUM/ORIENTATION: Yes alert OTHER: -generally quite weak but motivated to participate in therapy Psych: COMMON NORMALS: mental status grossly normal, cooperative and speech normal SPEECH: Yes normal speech MOOD & AFFECT: Yes Flat affect present OTHER: -seems more despondent and withdrawn today Skin: COMMON NORMALS: no rashes or lesions noted, no jaundice, no petechiae and no mottling NARRATIVE SKIN EXAM: -thin skin, scattered bruising on upper extremities GENERAL SKIN EXAM: no rashes or lesions noted Urinary Catheter Management^: Lund: Cath Placed During This Visit: no Reason for Continuing Indwelling Catheter: Acute Urinary Retention or Obstruction Data : 07/19/20 03:23 07/19/20 03:23 A&P Assessment and plan (1) Chronic kidney disease, stage III (moderate): -has known CKD stage 3; 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 Renal function unchanged -Nephrology consult appreciated -Had renal ultrasound done last month which showed markedly diminished velocities in the renal arteries which may be suggestive of proximal stenosis, unfortunately cannot do CTA due to renal function. Repeat US shows small volume kidneys bilaterally with increased echogenicity consistent with chronic medical renal disease -urine lytes, repeat UA noted, CPK wnl, elevated PTH consistent with secondary hyperparathyroidism; low vitamin D indicating vitamin D deficiency, on supplementation -Follows up with nephrology (Dr. Earl Brown, ) at [facility] -off IVF; encourage oral hydration -has Lund catheter in place, continue to monitor Is & Os, assess daily for removal -on sodium bicarbonate drip -decreased BP meds to increase renal perfusion -cellcept resumed at 500 mg BID (07/16), steroids titrated -noted potential need for dialysis with progression of CKD Status: Chronic Qualifiers: Chronic kidney disease stage 3 subtype: unspecified whether 3a or 3b Qualified Code(s): N18.30 - Chronic kidney disease, stage 3 unspecified (2) Anemia: -With episodes of R sided epistaxis that required packing on 07/08 -Has known history of anemia and has had prior GI work-up which per patient was negative for any acute bleeding source -Prior admission last month for severe anemia with hemoglobin as low as 4 and requirement of transfusion of blood products -s/p 1 unit with improvement in Hg up to 10 (06/15) -continue to monitor H/H closely; s/p 1 unit of PRBCs (07/15) with noted stability thereafter -on IV iron, iron studies noted Status: Chronic Qualifiers: Anemia type: unspecified type Qualified Code(s): D64.9 - Anemia, unspecified (3) Nondisplaced fracture of neck of left femur: -s/p ORIF by Dr. Mckeon, POD # 8 -pain control as needed -fall precautions -PT/OT evaluations appreciated Status: Acute (4) Urinary tract infection due to ESBL Klebsiella: -s/p 7-day course of imipenem (07/19) -ID consultation by Dr. 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 Would hold off on this for now until sure no need for placement of temporary dialysis catheter -Found to have right perineal vein thrombosis on venous duplex done on 05/16/20. -May not be a good candidate for long-term anticoagulation given underlying anemia with need for transfusion of blood products, recurrent falls Status: Acute Qualifiers: Affected thrombotic vein of extremity: unspecified vein of extremity Chronicity: chronic DVT location: lower extremity Laterality: unspecified laterality Qualified Code(s): I82.509 - Chronic embolism and thrombosis of unspecified deep veins of unspecified lower extremity Additional A&P Information -Treated for COVID-19 infection last month -Recurrent falls, generalized weakness, physical deconditioning, previously had rhabdomyolysis which resolved; PT evaluation appreciated, strict fall precautions -Known history of hypertension, on oral antihypertensives -GERD; on PPI and carafate -Hyperlipidemia; continue statin -Skin cancer affecting L ear; currently undergoing treatment -Very hard of hearing; hearing slightly better on the R -underlying cognitive impairment; reorient as needed -hx of chronic diastolic CHF, no acute exacerbation, off IVF. Echo (05/2020): EF=62%, mild concentric LVH, mild AR, trace MR, trace TR -ST evaluation done due to noted difficulty swallowing; no overt aspiration noted, regular consistently recommended as well as crushing meds which patient has declined, he wants to take his medications whole -cardiac diet as tolerated -GI ppx with PPI -DVT ppx with SCDs, no AC due to bleeding risk -Dispo: [facility] -Code status: DNR/DNI -guarded prognosis given advanced age, underlying comorbidities, issues with bleeding vs. anticoagulation, continued renal impairment Attestations Medical Necessity Statement*: Patient requires hospitalization for continued management of acute renal impairment, anemia. Time Spent in Patient Care: 16 - 35 minutes (>than 50% of time spent in counselling and/or direct pt care on unit). 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
[2020-07-19] MEDS: mirtazapine 30 mg Tablet PO (21:39)
[2020-07-19] MEDS: atorvastatin 40 mg Tablet 20 MG PO (21:39)
[2020-07-20] VITALS (16 sets, daily range): BP systolic 151–176; BP diastolic 74–92; PULSE 71–101; RESP 16–20; TEMP 35.9–37.4; O2SAT 78–94
[2020-07-20 05:03] LABS: Alanine Aminotransferase < 5 U/L (0-41); Albumin Level 2.8 g/dL (3.5-5.2); Alkaline Phosphatase 74 IU/L (40-130); Aspartate Amino Transferase 16 U/L (0-40); Blood Urea Nitrogen 74 mg/dL (8-23); Calcium 8.3 mg/dL (8.5-10.5); Carbon Dioxide 19 mmol/L (22-29); Chloride 103 mmol/L (98-107); Globulin 2.7 g/dL (1.3-4.6); Glucose 112 mg/dL (65-115); Magnesium 1.8 mg/dL (1.7-2.3); Osmolality Calculated 303 mOsm/kg (285-295); Phosphorus 4.9 mg/dL (2.5-4.5); Sodium 135 mmol/L (136-145); Total Bilirubin 0.2 mg/dL (0.15-1.2); Total Protein 5.5 g/dL (6.6-8.7)
--- NOTE | 2020-07-20 06:26 | XR_ITS ---
WS: [id number] XR chest 1V portable [id number] REASON FOR EXAM: sob, wheezing FINDINGS: Compared to previous examination of 07/10/2020, there is likely increasing right pleural effusion. Th ere is also a left pleural effusion. There are new central interstitial and alveolar infiltrative sara nges in the left lung. Same findings are seen in the central right lung only not as prominent. No other significant interval change. XR/XR chest 1V portable [id number] IMPRESSION: Progressive disease in the hemithoraces as described above. The findings are mo st compatible with worsening congestive heart failure however this superimposit ion of an acute inflammatory process on chronic congestive heart failure is not easily excluded.
--- NOTE | 2020-07-20 06:30 | PM.PN ---
Subjective Subjective: Interval history: weak, sob, some edema, depressed Medications: Reviewed: Yes Medication Review Details: Current Medications Acetaminophen (Tylenol) 650 mg PO Q6H PRN PRN Reason: Mild/Mod Pain Or Temp >/= 101 Last Admin: 07/18/20 17:48 Dose: 650 mg Documented by: Hydrocodone Bitart/Acetaminophen ([place]ath 5-325 Mg) 1 tab PO Q6H PRN PRN Reason: MODERATE PAIN Last Admin: 07/16/20 16:02 Dose: 1 tab Documented by: Albuterol/Ipratropium (Duoneb) 3 ml INHALATION Q6H.RESPIRATORY [facility] Last Admin: 07/20/20 02:21 Dose: Not Given Documented by: Amlodipine Besylate (Norvasc) 2.5 mg PO DAILY [facility] Last Admin: 07/19/20 08:33 Dose: 2.5 mg Documented by: Atorvastatin Calcium (Lipitor) 20 mg PO BEDTIME [facility] Last Admin: 07/19/20 21:39 Dose: 20 mg Documented by: Calcitriol (Rocaltrol) 0.25 mcg PO BID [facility] Last Admin: 07/19/20 17:46 Dose: 0.25 mcg Documented by: Clonidine HCl (Catapres) 0.1 mg PO BID [facility] Stop: 07/23/20 23:59 Last Admin: 07/19/20 21:38 Dose: 0.1 mg Documented by: Ergocalciferol (Vitamin D2) 50,000 unit PO Q7D [facility] Last Admin: 07/16/20 10:33 Dose: 50,000 unit Documented by: Hydralazine HCl (Apresoline) 25 mg PO TID [facility] Last Admin: 07/19/20 21:39 Dose: 25 mg Documented by: Ferric Sodium Gluconate 125 mg (/ Sodium Chloride) 110 mls @ 110 mls/hr IV Q24H [facility] Stop: 07/22/20 09:59 Last Infusion: 07/19/20 09:26 Dose: Infused Documented by: Metoclopramide HCl (Reglan) 10 mg IVP ONCE PRN PRN Reason: N/V if zofran ineffective Metoprolol Tartrate (Lopressor) 25 mg PO 09,21 [facility] Last Admin: 07/19/20 21:39 Dose: 25 mg Documented by: Mirtazapine (Remeron) 30 mg PO BEDTIME [facility] Last Admin: 07/19/20 21:39 Dose: 30 mg Documented by: Mycophenolate Mofetil (Cellcept) 500 mg PO TID [facility] Last Admin: 07/19/20 21:38 Dose: 500 mg Documented by: Ondansetron HCl (Zofran) 4 mg IVP Q4H PRN PRN Reason: NAUSEA AND VOMITING Last Admin: 07/12/20 20:53 Dose: 4 mg Documented by: Pantoprazole Sodium (Protonix) 40 mg PO DAILY [facility] Last Admin: 07/19/20 08:33 Dose: 40 mg Documented by: Prednisone (Prednisone) 10 mg PO DAILY [facility] Last Admin: 07/19/20 08:33 Dose: 10 mg Documented by: Fluticasone/Salmeterol (Advair Diskus 250-50) 1 puff INHALATION BID.RESPIRATORY [facility] Last Admin: 07/19/20 20:24 Dose: 1 puff Documented by: Sevelamer Carbonate (Renvela) 800 mg PO TID [facility] Last Admin: 07/19/20 21:38 Dose: 800 mg Documented by: Sodium Bicarbonate (Sodium Bicarbonate) 650 mg PO QID [facility] Last Admin: 07/19/20 21:39 Dose: 650 mg Documented by: Sodium Chloride ([place]eria Nasal [place]) 2 spray NASAL TID [facility] Last Admin: 07/19/20 21:40 Dose: Not Given Documented by: Vitals/I&O/Wt Last Vital Signs Temp 99.3 F 07/20/20 04:00 Pulse 85 07/20/20 04:00 Resp 18 07/20/20 04:00 BP 156/74 07/20/20 04:00 Pulse Ox 92 07/20/20 04:00 07/19/20 07/19/20 07/20/20 14:59 22:59 06:59 Intake Total 882 / 882 1818.5 / 2700.5 Output Total 450 / 450 300 / 750 750 / 1500 Balance 432 / 432 1518.5 / 1950.5 -750 / 1200.5 Physical Exam Narrative: EXAM NARRATIVE: elderly frail man sitting up in bed, SOB vs noted. Pulse ox low- 92% heent- nc/at, eomi skin rash stable neck supple lungs ronchi b/l heart reg, no rub abd soft, nt, nd, +BS ext inc leg edema b/l neuro- awake,confised, weak + mueller catheter Urinary Catheter Management^: Mueller: Cath Placed During This Visit: no Reason for Continuing Indwelling Catheter: Other Data : 07/19/20 03:23 07/20/20 02:45 A&P Additional A&P Information 1. 1. CKD stage 4- i CALLED dr. 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 since has been treated w/ steroids, cytoxan and cr down to 1.2 mg/dl. Pt was not good w/ f/u and then agreed to take cellcept- and cr approx 2 mg/dl. Over the last year his cr has been rising to close to 3 mg/dl. pt has been loosing weight and having anemia. Per Dr. Brown, the pt had a BM bx and a neg GI eval. He feels that his CKD is progressing- he thinks, it may be time to dec immunosupression. - renal us c./w advanced CKD- small kidneys and echogenic -save the vein protocol- will need a AVF soon- if pt would want chronic HD -would taper down steroids and inc cellcept 500 tid, 2. Acute kidney injury, -improved uop w/ mueller is sob- d/c ivf -0check cxr -may need lasix -check 24 hr cr clearance- i am concerned that he may be uremic and would benefit from dialysis initiation -consider Renal angiogram- will discuss w/ cardiology. however, i am not very hopeful that renal artery stents will reverse much of BOOGIE on CKD -monitor chemistries and urine output 2. Klebsiella UTI - continuing antibiotics, urine retention - mueller placed 3. Metabolic acidosis - po sodium bicarb- his bicarb improved to 19 4. Anemia - complete IV iron load. hgb abve 10- no epo 5. Hyperkalemia - low potassium diet, repeat 6. Hypertension - improved. on multiple meds. q of NATY 7. replace magnesium as needed 8. phos improved w/ binders and calcitriol 9. Rt Peronneal vein DVT- a/c per medicine 10. 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
[2020-07-20 07:09] LABS: Basophils % 0.1 %; Eosinophils % 0.3 %; Hematocrit 37.6 % (42.0-52.0); Hemoglobin 11.6 g/dL (11.7-16.6); Lymphocytes # 0.3 10^3/uL (0.8-4.8); Lymphocytes % 3.7 %; Mean Corpuscular HGB Conc 30.9 g/dL (30.0-36.0); Mean Corpuscular Hemoglobin 29.1 pg (28.0-34.0); Mean Corpuscular Volume 94.2 fL (80-94); Monocytes # 0.3 10^3/uL (0.2-0.9); Monocytes % 4.1 %; Neutrophils # 6.64 10^3/uL (1.8-7.7); Neutrophils % 90.4 %; Nucleated Red Blood Cells % 0 %; Platelet Count 220 10^3/cmm (130-400); Red Blood Count 3.99 10^6/uL (4.1-5.3); Red Cell Distribution Width 16.5 % (12.1-15.1); White Blood Count 7.3 10^3/uL (4.0-10.0)
[2020-07-20] MEDS: ipratropium-albuterol 3 mL Neb INHALATION ×3 (08:20→20:35)
[2020-07-20] MEDS: ferric gluconate 125 MG in sodium chloride 0.9% (100 ml) 100 ML 110 MG IV (09:01)
[2020-07-20] MEDS: cloNIDine 0.1 mg Tablet PO ×2 (09:02→16:38)
[2020-07-20] MEDS: sodium bicarbonate 650 mg Tablet PO ×4 (09:03→21:15)
[2020-07-20] MEDS: amlodipine 10 mg Tablet 2.5 MG PO (09:03)
[2020-07-20] MEDS: hyDRALAzine 25 mg Tablet PO ×3 (09:04→21:16)
[2020-07-20] MEDS: sevelamer 800 mg Tablet 400 MG PO ×3 (09:04→21:15)
[2020-07-20] MEDS: pantoprazole DR 40 mg Tablet PO (09:05)
[2020-07-20] MEDS: predniSONE 10 mg Tablet PO (09:05)
[2020-07-20] MEDS: calcitriol 0.25 mcg Capsule PO (09:11)
[2020-07-20] MEDS: metoprolol tartrate 25 mg Tablet PO ×2 (09:12→21:16)
[2020-07-20] MEDS: saline nasal spray 44mL Btl 2 SPRAY NASAL ×3 (09:12→21:20)
--- NOTE | 2020-07-20 11:24 | NUR.SHIFT ---
Notified Pts nurse about o2 level.
--- NOTE | 2020-07-20 11:25 | PM.PN ---
Subjective Subjective: Interval history: Patient has laboured breathing and has remained border line tachypenic. Vitals and labs have been reviewed Medications: Reviewed: Yes Vitals/I&O/Wt Last Vital Signs Temp 98.6 F 07/20/20 11:22 Pulse 87 07/20/20 11:22 Resp 16 07/20/20 11:22 BP 156/80 07/20/20 11:22 Pulse Ox 78 L 07/20/20 11:22 07/19/20 07/20/20 07/20/20 22:59 06:59 14:59 Intake Total 1818.5 / 2700.5 100 / 100 Output Total 300 / 750 750 / 1500 200 / 200 Balance 1518.5 / 1950.5 -750 / 1200.5 -100 / -100 Physical Exam Const: COMMON NORMALS: patient oriented x3 HENMT: COMMON NORMALS: normocephalic, atraumatic, hearing grossly normal bilaterally and external ears normal HEAD & SCALP: normocephalic and atraumatic EXTERNAL EAR: Yes external ears normal Eye: COMMON NORMALS: no scleral icterus GENERAL EYE: appearance normal, both eyes and all related structures Chest: COMMONS NORMALS: normal inspection of the chest and normal palpation of entire chest wall CHEST: Yes Symmetrical chest wall rise Resp: OTHER: B/L Crackles present in both lung pereira Cardio: COMMON NORMALS: regular rate, regular rhythm, S1 normal heart sound present, S2 normal heart sound present, No gallops present (Cardio), No murmurs present (Cardio), No rub (Cardio) and Peripheral pulses 2+ throughout RATE: regular rate RHYTHM: regular rhythm HEART SOUNDS: S1 normal heart sound present and S2 normal heart sound present PERIPHERAL PULSES: Peripheral pulses 2+ throughout GI: COMMON NORMALS: Normal to inspection, nondistended, normoactive bowel sounds present, Soft to palpation, non-tender, No hepatosplenomegaly present and no masses AUSCULTATION: Yes normoactive bowel sounds PALPATION: Yes Soft to palpation and Yes No hepatosplenomegaly present RECTAL EXAM: Yes deferred Extremity: COMMON NORMALS: no clubbing, cyanosis or edema and no pedal edema Neuro: COMMON NORMALS: patient oriented x3 Urinary Catheter Management^: Lund: Cath Placed During This Visit: no Reason for Continuing Indwelling Catheter: Other Data : 07/20/20 02:45 07/20/20 02:45 A&P Assessment and plan (1) Chronic kidney disease, stage III (moderate): -has known CKD stage 3; 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 Renal function unchanged -Nephrology consult appreciated -Had renal ultrasound done last month which showed markedly diminished velocities in the renal arteries which may be suggestive of proximal stenosis, unfortunately cannot do CTA due to renal function. Repeat US shows small volume kidneys bilaterally with increased echogenicity consistent with chronic medical renal disease -urine lytes, repeat UA noted, CPK wnl, elevated PTH consistent with secondary hyperparathyroidism; low vitamin D indicating vitamin D deficiency, on supplementation -Follows up with nephrology (Dr. Earl Brown, ) at [facility] -off IVF; encourage oral hydration -has Lund catheter in place, continue to monitor Is & Os, assess daily for removal -on sodium bicarbonate drip -decreased BP meds to increase renal perfusion -cellcept resumed at 500 mg BID (07/16), steroids titrated -noted potential need for dialysis with progression of CKD Status: Chronic Qualifiers: Chronic kidney disease stage 3 subtype: unspecified whether 3a or 3b Qualified Code(s): N18.30 - Chronic kidney disease, stage 3 unspecified (2) Anemia: -With episodes of R sided epistaxis that required packing on 07/08 -Has known history of anemia and has had prior GI work-up which per patient was negative for any acute bleeding source -Prior admission last month for severe anemia with hemoglobin as low as 4 and requirement of transfusion of blood products -s/p 1 unit with improvement in Hg up to 10 (06/15) -continue to monitor H/H closely; s/p 1 unit of PRBCs (07/15) with noted stability thereafter -on IV iron, iron studies noted Status: Chronic Qualifiers: Anemia type: unspecified type Qualified Code(s): D64.9 - Anemia, unspecified (3) Nondisplaced fracture of neck of left femur: -s/p ORIF by Dr. Mckeon, POD # 8 -pain control as needed -fall precautions -PT/OT evaluations appreciated Status: Acute (4) Urinary tract infection due to ESBL Klebsiella: -s/p 7-day course of imipenem (07/19) -ID consultation by Dr. 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 Would hold off on this for now until sure no need for placement of temporary dialysis catheter -Found to have right perineal vein thrombosis on venous duplex done on 05/16/20. -May not be a good candidate for long-term anticoagulation given underlying anemia with need for transfusion of blood products, recurrent falls Status: Acute Qualifiers: Affected thrombotic vein of extremity: unspecified vein of extremity Chronicity: chronic DVT location: lower extremity Laterality: unspecified laterality Qualified Code(s): I82.509 - Chronic embolism and thrombosis of unspecified deep veins of unspecified lower extremity Additional A&P Information -Treated for COVID-19 infection last month -Recurrent falls, generalized weakness, physical deconditioning, previously had rhabdomyolysis which resolved; PT evaluation appreciated, strict fall precautions -Known history of hypertension, on oral antihypertensives -GERD; on PPI and carafate -Hyperlipidemia; continue statin -Skin cancer affecting L ear; currently undergoing treatment -Very hard of hearing; hearing slightly better on the R -underlying cognitive impairment; reorient as needed -hx of chronic diastolic CHF, no acute exacerbation, off IVF. Echo (05/2020): EF=62%, mild concentric LVH, mild AR, trace MR, trace TR -ST evaluation done due to noted difficulty swallowing; no overt aspiration noted, regular consistently recommended as well as crushing meds which patient has declined, he wants to take his medications whole -cardiac diet as tolerated -GI ppx with PPI -DVT ppx with SCDs, no AC due to bleeding risk -Dispo: [facility] -Code status: DNR/DNI -guarded prognosis given advanced age, underlying comorbidities, issues with bleeding vs. anticoagulation, continued renal impairment Attestations Medical Necessity Statement*: Patient requires hospitalization for continued management of acute renal impairment, anemia. Coding Level of Care Code Acute Manager Furniture for [facility] Fwd Diagnoses Chronic kidney disease, stage III (moderate) N18.30 Chronic kidney disease stage 3 subtype: unspecified whether 3a or 3b Anemia D64.9 Anemia type: unspecified type Nondisplaced fracture of neck of left femur S72.002A Urinary tract infection due to ESBL Klebsiella N39.0; B96.89 Polyarteritis nodosa M30.0 DVT (deep venous thrombosis) I82.509 Affected thrombotic vein of extremity: unspecified vein of extremity Chronicity: chronic DVT location: lower extremity Laterality: unspecified laterality
--- NOTE | 2020-07-20 11:50 | PC.RESP ---
Therapist called to 266 for patient with low sats. Therapist got in the room with patient on a 5LPM NC sats were 85%. Therapist turned patient up to 6LPM NC sats reached 89%. Patient moved to the bed and was 84%. Therapist could not get patient to breathe through his nose and out of his mouth. Therapist placed an oxymask on patient on 10LPM patient sats are 89% nurse is notifying DrJoana and therapist is giving a PRN treatment.
--- NOTE | 2020-07-20 11:53 | PC.NURSE ---
patient was 91% on room air this morning. Now he was 78% on RA. We put him on 10L oxy mask and he is 88-89%. RT was notified and they are going to give him a treatment. Notified Dr Peguero.
[2020-07-20] MEDS: FUROsemide 10 mg/mL SDV 4mL 40 MG IVP (12:14)
[2020-07-20 13:04] LABS: ABG PCO2 32.2 mmHg (35-45); ABG PH Result 7.37 (7.35-7.45); Alveolar-Arterial Oxygen Gradi 4.3 mmHg (5-10); Arterial Blood Gas Hematocrit 34.1 % (42-52); Base Excess ABG -5.7 mmol/L (-2.0-2.0); Blood Gas Allen Test Pos; Blood Gas Operator Identificat ED; Blood Gas Sample Site Radial, left; Blood Gas Sample Type Arterial; Carboxyhemoglobin 1.2 %THgb (0.4-20.1); HCO3 ABG 18.7 mmol/L (22-26); HGB O2 Sat 93.8 % (95-100); Ionized Calcium Level - ABG 1.2 mmol/L (1.1-1.4); Oxygen Device OXY MASK; PO2 ABG 76.1 mmHg (80.0-100.0); Potassium Level - ABG 4.9 mmol/L (3.5-5.0); Total Hemoglobin 11.1 g/dL (14-18)
[2020-07-20 20:28] LABS: ANCA Interp Negative (Negative)
[2020-07-20] MEDS: mirtazapine 30 mg Tablet PO (21:16)
[2020-07-20] MEDS: atorvastatin 40 mg Tablet 20 MG PO (21:16)
[2020-07-21] VITALS (15 sets, daily range): BP systolic 130–166; BP diastolic 75–90; PULSE 68–102; RESP 15–25; TEMP 36.3–37.9; O2SAT 82–96
[2020-07-21] MEDS: ipratropium-albuterol 3 mL Neb INHALATION ×4 (02:55→20:00)
[2020-07-21 03:23] LABS: Alanine Aminotransferase < 5 U/L (0-41); Albumin Level 2.5 g/dL (3.5-5.2); Alkaline Phosphatase 66 IU/L (40-130); Anion Gap 18.2 (5-19); Aspartate Amino Transferase 15 U/L (0-40); Blood Urea Nitrogen 77 mg/dL (8-23); Carbon Dioxide 20 mmol/L (22-29); Chloride 105 mmol/L (98-107); Globulin 2.6 g/dL (1.3-4.6); Glucose 83 mg/dL (65-115); Magnesium 1.7 mg/dL (1.7-2.3); Osmolality Calculated 308 mOsm/kg (285-295); Phosphorus 5.9 mg/dL (2.5-4.5); Potassium 5.2 mmol/L (3.5-5.1); Sodium 138 mmol/L (136-145); Total Bilirubin 0.2 mg/dL (0.15-1.2); Total Protein 5.1 g/dL (6.6-8.7)
--- NOTE | 2020-07-21 06:52 | PC.NURSE ---
Mr. Good Alegre son called just now and said family has came to a decision and they would like for Mr. Alegre in 266 to have dialysis as soon as you can arrange it. Physician notified by voalte.
--- NOTE | 2020-07-21 07:21 | PM.PN ---
Subjective Subjective: Interval history: weak, less sob. urinated w/ lasix. weak, withdrawan, poor appetite. Medications: Reviewed: Yes Medication Review Details: Current Medications Acetaminophen (Tylenol) 650 mg PO Q6H PRN PRN Reason: Mild/Mod Pain Or Temp >/= 101 Last Admin: 07/18/20 17:48 Dose: 650 mg Documented by: Hydrocodone Bitart/Acetaminophen ([place] 5-325 Mg) 1 tab PO Q6H PRN PRN Reason: MODERATE PAIN Last Admin: 07/16/20 16:02 Dose: 1 tab Documented by: Albuterol/Ipratropium (Duoneb) 3 ml INHALATION Q6H.RESPIRATORY [facility] Last Admin: 07/21/20 02:55 Dose: 3 ml Documented by: Amlodipine Besylate (Norvasc) 2.5 mg PO DAILY [facility] Last Admin: 07/20/20 09:03 Dose: 2.5 mg Documented by: Atorvastatin Calcium (Lipitor) 20 mg PO BEDTIME [facility] Last Admin: 07/20/20 21:16 Dose: 20 mg Documented by: Calcitriol (Calcitriol 0.25 Mcg Capsule) 0.25 mcg PO DAILY [facility] Last Admin: 07/20/20 09:11 Dose: 0.25 mcg Documented by: Clonidine HCl (Catapres) 0.1 mg PO BID [facility] Stop: 07/23/20 23:59 Last Admin: 07/20/20 16:38 Dose: 0.1 mg Documented by: Ergocalciferol (Vitamin D2) 50,000 unit PO Q7D [facility] Last Admin: 07/16/20 10:33 Dose: 50,000 unit Documented by: Hydralazine HCl (Apresoline) 25 mg PO TID [facility] Last Admin: 07/20/20 21:16 Dose: 25 mg Documented by: Ferric Sodium Gluconate 125 mg (/ Sodium Chloride) 110 mls @ 110 mls/hr IV Q24H [facility] Stop: 07/22/20 09:59 Last Admin: 07/20/20 09:01 Dose: 110 mls/hr Documented by: Metoclopramide HCl (Reglan) 10 mg IVP ONCE PRN PRN Reason: N/V if zofran ineffective Metoprolol Tartrate (Lopressor) 25 mg PO [facility] Last Admin: 07/20/20 21:16 Dose: 25 mg Documented by: Mirtazapine (Remeron) 30 mg PO BEDTIME [facility] Last Admin: 07/20/20 21:16 Dose: 30 mg Documented by: Mycophenolate Mofetil (Cellcept) 500 mg PO TID [facility] Last Admin: 07/20/20 21:16 Dose: 500 mg Documented by: Ondansetron HCl (Zofran) 4 mg IVP Q4H PRN PRN Reason: NAUSEA AND VOMITING Last Admin: 07/12/20 20:53 Dose: 4 mg Documented by: Pantoprazole Sodium (Protonix) 40 mg PO DAILY [facility] Last Admin: 07/20/20 09:05 Dose: 40 mg Documented by: Prednisone (Prednisone) 10 mg PO DAILY [facility] Last Admin: 07/20/20 09:05 Dose: 10 mg Documented by: Fluticasone/Salmeterol (Advair Diskus 250-50) 1 puff INHALATION BID.RESPIRATORY [facility] Last Admin: 07/20/20 20:35 Dose: 1 puff Documented by: Sevelamer Carbonate (Sevelamer 800 Mg Tablet) 400 mg PO TID [facility] Last Admin: 07/20/20 21:15 Dose: 400 mg Documented by: Sodium Bicarbonate (Sodium Bicarbonate) 650 mg PO QID [facility] Last Admin: 07/20/20 21:15 Dose: 650 mg Documented by: Sodium Chloride ([place] Nasal [place]) 2 spray NASAL TID [facility] Last Admin: 07/20/20 21:20 Dose: 2 spray Documented by: Vitals/I&O/Wt Last Vital Signs Temp 97.8 F 07/21/20 04:00 Pulse 93 07/21/20 04:00 Resp 19 H 07/21/20 04:00 BP 152/86 07/21/20 04:00 Pulse Ox 93 07/21/20 04:00 07/20/20 07/21/20 07/21/20 22:59 06:59 14:59 Output Total 500 / 700 450 / 1150 Balance -500 / -600 -450 / -1050 Weight last 48 hrs Weight 63.957 kg Physical Exam Narrative: EXAM NARRATIVE: elderly frail man sitting up in bed, less SOB vs noted. using fm o2 heent- nc/at, eomi skin rash stable neck supple lungs ronchi b/l heart reg, no rub abd soft, nt, nd, +BS ext + leg edema b/l neuro- awake,confused, weak + mueller catheter Urinary Catheter Management^: Mueller: Cath Placed During This Visit: no Reason for Continuing Indwelling Catheter: Other Data : 07/20/20 02:45 07/21/20 02:57 A&P Additional A&P Information 1. 1. CKD stage 4- i CALLED dr. Jeison Brown- [phone], document manager at [facility]- Pt was first diagnosed w/ P-ANCA in 204. since has been treated w/ steroids, cytoxan and cr down to 1.2 mg/dl. Pt was not good w/ f/u and then agreed to take cellcept- and cr approx 2 mg/dl. Over the last year his cr has been rising to close to 3 mg/dl. pt has been loosing weight and having anemia. Per Dr. Brown, the pt had a BM bx and a neg GI eval. He feels that his CKD is progressing- he thinks, it may be time to dec immunosupression. - renal us c./w advanced CKD- small kidneys and echogenic -save the vein protocol- will need a AVF soon- if pt would want chronic HD -would taper down steroids and inc cellcept 500 tid, 2. Acute kidney injury, -improved uop w/ mueller -cont lasix -cxr w/ volume overload -check 24 hr cr clearance- based on results, will considedr initiation of HD -per RN. Pts family consents to dialysis -consider Renal angiogram- will discuss w/ cardiology. however, i am not very hopeful that renal artery stents will reverse much of BOOGIE on CKD -monitor chemistries and urine output 2. Klebsiella UTI - continuing antibiotics, urine retention - mueller placed 3. Metabolic acidosis - po sodium bicarb- his bicarb improved to 20 4. Anemia - complete IV iron load. hgb abve 10- no epo -normal kappa/ lambda ratio 5. Hyperkalemia - low potassium diet, 6. Hypertension - improved. on multiple meds. q of NATY 7. replace magnesium as needed 8. phos improved w/ binders and calcitriol -vit d repletion 9. Rt Perineal vein DVT- a/c per medicine 10. pt needs nutrition. alb is 2.5. also needs PT 11. s/p ORIF of left femir POD # 9 Attestations Medical Necessity Statement*: s/p hip fx, boogie on ckd, uti, htn Time Spent in Patient Care: 16 - 35 minutes Coding Level of Care Code Acute Acid Concentrator for Elizabeth Ruiz
[2020-07-21] MEDS: sevelamer 800 mg Tablet 400 MG PO ×3 (09:22→21:27)
--- NOTE | 2020-07-21 09:22 | PC.SOCIAL ---
IMM update Pg. 2 of IMM updated with patient's daughter, Melissa, who answers the phone number listed for patient's . Verbalized understanding.
[2020-07-21] MEDS: calcitriol 0.25 mcg Capsule PO (09:23)
[2020-07-21] MEDS: hyDRALAzine 25 mg Tablet PO ×3 (09:24→21:26)
[2020-07-21] MEDS: cloNIDine 0.1 mg Tablet PO ×2 (09:24→16:18)
[2020-07-21] MEDS: predniSONE 10 mg Tablet PO (09:24)
[2020-07-21] MEDS: pantoprazole DR 40 mg Tablet PO (09:24)
[2020-07-21] MEDS: sodium bicarbonate 650 mg Tablet PO ×4 (09:24→21:26)
[2020-07-21] MEDS: amlodipine 10 mg Tablet 2.5 MG PO (09:25)
[2020-07-21] MEDS: FUROsemide 10 mg/mL SDV 10mL 60 MG IVP (09:26)
[2020-07-21] MEDS: metoprolol tartrate 25 mg Tablet PO ×2 (09:26→21:26)
[2020-07-21] MEDS: saline nasal spray 44mL Btl 2 SPRAY NASAL ×2 (10:04→16:20)
[2020-07-21] MEDS: ferric gluconate 125 MG in sodium chloride 0.9% (100 ml) 100 ML 110 MG IV (10:16)
[2020-07-21 10:32] LABS: Basophils % 0.1 %; Eosinophils % 0.2 %; Hematocrit 37.9 % (42.0-52.0); Hemoglobin 11.3 g/dL (11.7-16.6); Lymphocytes # 0.3 10^3/uL (0.8-4.8); Lymphocytes % 3.6 %; Mean Corpuscular HGB Conc 29.8 g/dL (30.0-36.0); Mean Corpuscular Hemoglobin 28.6 pg (28.0-34.0); Mean Corpuscular Volume 95.9 fL (80-94); Mean Platelet Volume 9.7 fL (7.4-10.4); Monocytes # 0.2 10^3/uL (0.2-0.9); Monocytes % 2.9 %; Neutrophils # 7.59 10^3/uL (1.8-7.7); Neutrophils % 92.2 %; Nucleated Red Blood Cells % 0 %; Platelet Count 239 10^3/cmm (130-400); Red Blood Count 3.95 10^6/uL (4.1-5.3); Red Cell Distribution Width 16.4 % (12.1-15.1); White Blood Count 8.2 10^3/uL (4.0-10.0)
[2020-07-21 10:53] LABS: Alanine Aminotransferase < 5 U/L (0-41); Albumin Level 2.8 g/dL (3.5-5.2); Alkaline Phosphatase 73 IU/L (40-130); Anion Gap 21.6 (5-19); Aspartate Amino Transferase 18 U/L (0-40); Blood Urea Nitrogen 79 mg/dL (8-23); Calcium 8.2 mg/dL (8.5-10.5); Carbon Dioxide 19 mmol/L (22-29); Chloride 105 mmol/L (98-107); Globulin 2.9 g/dL (1.3-4.6); Glucose 83 mg/dL (65-115); Osmolality Calculated 313 mOsm/kg (285-295); Potassium 5.6 mmol/L (3.5-5.1); Sodium 140 mmol/L (136-145); Total Bilirubin 0.2 mg/dL (0.15-1.2); Total Protein 5.7 g/dL (6.6-8.7)
--- NOTE | 2020-07-21 11:07 | PC.OT ---
OT treatment attempted today. After a lot of encouragement pt finally agreed to wash his face but refused any further ADL tasks or therapeutic exercise stating that he was too cold. Therapist provided additional blanket. Will attempt again tomorrow. Co-sign: NILS Brothers/Vladislav
[2020-07-21 13:15] LABS: Urine Creatinine 28 mg/dL (39-259)
[2020-07-21 13:21] LABS: Total Protein 24 Hour Urine 2921.3 mg/24HR (0-150); Total Volume Urine 2050 ml; Total Volume, Urine 2050 mL; Urine Total Protein 24 Hour 142.5 mg/dL (0-150)
[2020-07-21 13:22] LABS: Total Volume Urine 2050 ml
--- NOTE | 2020-07-21 13:38 | PM.PN ---
Subjective Subjective: Interval history: Patient is more alert and awake today.Has remained afebrile.Good urine output with lasix: ( 1750 ml ) Other vitals and labs have been reviewed. Medications: Reviewed: Yes Vitals/I&O/Wt Last Vital Signs Temp 100.3 F H 07/21/20 11:23 Pulse 73 07/21/20 11:23 Resp 16 07/21/20 11:23 BP 150/80 07/21/20 11:23 Pulse Ox 94 07/21/20 11:23 07/20/20 07/21/20 07/21/20 22:59 06:59 14:59 Intake Total 240 / 240 Output Total 500 / 700 450 / 1150 200 / 200 Balance -500 / -490 -450 / -940 40 / 40 Weight last 48 hrs Weight 63.957 kg Physical Exam Const: COMMON NORMALS: patient oriented x3 HENMT: COMMON NORMALS: normocephalic, atraumatic, hearing grossly normal bilaterally and external ears normal HEAD & SCALP: normocephalic and atraumatic EXTERNAL EAR: Yes external ears normal Eye: COMMON NORMALS: no scleral icterus GENERAL EYE: appearance normal, both eyes and all related structures Chest: COMMONS NORMALS: normal inspection of the chest and normal palpation of entire chest wall CHEST: Yes Symmetrical chest wall rise Resp: COMMON NORMALS: normal respiratory effort, No retractions and No use of accessory muscles EFFORT & INSPECTION: Yes symmetric chest movement OTHER: B/L Basal Crackles present in both lungs pereira. Cardio: COMMON NORMALS: regular rate, regular rhythm, S1 normal heart sound present, S2 normal heart sound present, No gallops present (Cardio), No murmurs present (Cardio), No rub (Cardio) and Peripheral pulses 2+ throughout RATE: regular rate RHYTHM: regular rhythm HEART SOUNDS: S1 normal heart sound present and S2 normal heart sound present PERIPHERAL PULSES: Peripheral pulses 2+ throughout GI: COMMON NORMALS: Normal to inspection, nondistended, normoactive bowel sounds present, Soft to palpation, non-tender, No hepatosplenomegaly present and no masses AUSCULTATION: Yes normoactive bowel sounds PALPATION: Yes Soft to palpation and Yes No hepatosplenomegaly present RECTAL EXAM: Yes deferred Extremity: COMMON NORMALS: no clubbing, cyanosis or edema and no pedal edema Neuro: COMMON NORMALS: patient oriented x3 Urinary Catheter Management^: Lund: Cath Placed During This Visit: no Reason for Continuing Indwelling Catheter: Other Data : 07/21/20 09:57 07/21/20 12:00 A&P Assessment and plan (1) Chronic kidney disease, stage III (moderate): -has known CKD stage 3; 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 Renal function unchanged -Nephrology consult appreciated -Had renal ultrasound done last month which showed markedly diminished velocities in the renal arteries which may be suggestive of proximal stenosis, unfortunately cannot do CTA due to renal function. Repeat US shows small volume kidneys bilaterally with increased echogenicity consistent with chronic medical renal disease -urine lytes, repeat UA noted, CPK wnl, elevated PTH consistent with secondary hyperparathyroidism; low vitamin D indicating vitamin D deficiency, on supplementation -Follows up with nephrology (Dr. Earl Brown, ) at [facility] -off IVF; encourage oral hydration -has Lund catheter in place, continue to monitor Is & Os, assess daily for removal -on sodium bicarbonate drip -decreased BP meds to increase renal perfusion -cellcept resumed at 500 mg BID (07/16), steroids titrated -noted potential need for dialysis with progression of CKD Status: Chronic Qualifiers: Chronic kidney disease stage 3 subtype: unspecified whether 3a or 3b Qualified Code(s): N18.30 - Chronic kidney disease, stage 3 unspecified (2) Anemia: -With episodes of R sided epistaxis that required packing on 07/08 -Has known history of anemia and has had prior GI work-up which per patient was negative for any acute bleeding source -Prior admission last month for severe anemia with hemoglobin as low as 4 and requirement of transfusion of blood products -s/p 1 unit with improvement in Hg up to 10 (06/15) -continue to monitor H/H closely; s/p 1 unit of PRBCs (07/15) with noted stability thereafter -on IV iron, iron studies noted Status: Chronic Qualifiers: Anemia type: unspecified type Qualified Code(s): D64.9 - Anemia, unspecified (3) Nondisplaced fracture of neck of left femur: -s/p ORIF by Dr. Mckeon, POD # 8 -pain control as needed -fall precautions -PT/OT evaluations appreciated Status: Acute (4) Urinary tract infection due to ESBL Klebsiella: -s/p 7-day course of imipenem (07/19) -ID consultation by Dr. 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 Would hold off on this for now until sure no need for placement of temporary dialysis catheter -Found to have right perineal vein thrombosis on venous duplex done on 05/16/20. -May not be a good candidate for long-term anticoagulation given underlying anemia with need for transfusion of blood products, recurrent falls Status: Acute Qualifiers: Affected thrombotic vein of extremity: unspecified vein of extremity Chronicity: chronic DVT location: lower extremity Laterality: unspecified laterality Qualified Code(s): I82.509 - Chronic embolism and thrombosis of unspecified deep veins of unspecified lower extremity Additional A&P Information -Treated for COVID-19 infection last month -Recurrent falls, generalized weakness, physical deconditioning, previously had rhabdomyolysis which resolved; PT evaluation appreciated, strict fall precautions -Known history of hypertension, on oral antihypertensives -GERD; on PPI and carafate -Hyperlipidemia; continue statin -Skin cancer affecting L ear; currently undergoing treatment -Very hard of hearing; hearing slightly better on the R -underlying cognitive impairment; reorient as needed -hx of chronic diastolic CHF, no acute exacerbation, off IVF. Echo (05/2020): EF=62%, mild concentric LVH, mild AR, trace MR, trace TR -ST evaluation done due to noted difficulty swallowing; no overt aspiration noted, regular consistently recommended as well as crushing meds which patient has declined, he wants to take his medications whole -cardiac diet as tolerated -GI ppx with PPI -DVT ppx with SCDs, no AC due to bleeding risk -Dispo: [facility] -Code status: DNR/DNI -guarded prognosis given advanced age, underlying comorbidities, issues with bleeding vs. anticoagulation, continued renal impairment Attestations Medical Necessity Statement*: Patient requires hospitalization for continued management of acute renal impairment, anemia. Coding Level of Care Code Acute Director Of User Experience for Chg Fwd Diagnoses Chronic kidney disease, stage III (moderate) N18.30 Chronic kidney disease stage 3 subtype: unspecified whether 3a or 3b Anemia D64.9 Anemia type: unspecified type Nondisplaced fracture of neck of left femur S72.002A Urinary tract infection due to ESBL Klebsiella N39.0; B96.89 Polyarteritis nodosa M30.0 DVT (deep venous thrombosis) I82.509 Affected thrombotic vein of extremity: unspecified vein of extremity Chronicity: chronic DVT location: lower extremity Laterality: unspecified laterality
[2020-07-21] MEDS: insulin regular-human 5 UNIT in SYRINGE 1 EACH 1 UNIT IVP (15:07)
[2020-07-21] MEDS: dextrose 50% syringe 50 mL IVP (15:08)
[2020-07-21 15:45] LABS: Creatinine, Urine (Cre Clear) 28 mg/dL (39-259)
--- NOTE | 2020-07-21 16:14 | PC.NURSE ---
Called patient's daughter back Melissa [phone] and gave update on patient's condition.
[2020-07-21] MEDS: mirtazapine 30 mg Tablet PO (21:26)
[2020-07-21] MEDS: atorvastatin 40 mg Tablet 20 MG PO (21:27)
--- NOTE | 2020-07-21 22:30 | PC.NURSE ---
Addendum entered by Sierra Hernandez LPN 07/21/20 23:16: Patient sats at 90% after NC being placed back on patient. Original Note: Patient oxygen saturations dropped to 82%. NC was half in. NC placed on patient properly on 10 liters.
--- NOTE | 2020-07-21 23:51 | PC.NURSE ---
Patient oxygen sats staying 85-87% on 15 liters titrated up from 10 liters from start of shift oxymax sitting in high fowlers. Continued to educate patient on deep breathing. Dr. Griffith notified with an order for Bipap. Rt notified of order for Bipap. Patient oxygen sats at 95% while on Bipap. Patient is resting well.
[2020-07-22] VITALS (15 sets, daily range): BP systolic 146–170; BP diastolic 84–95; PULSE 70–95; RESP 15–24; TEMP 36.9–37.8; O2SAT 83–97
[2020-07-22] MEDS: ondansetron 2 mg/ML SDV 2 mL 4 MG IVP ×2 (02:06→23:51)
--- NOTE | 2020-07-22 02:14 | PC.NURSE ---
Patient pulled Bipap mask of multiple times refusing to wear it. Patient now wearing oxymask on 15 Liters with sats 86%-89%. Patient is not in distress.
[2020-07-22 03:03] LABS: Creatinine Clearance, Urine 14 mL/Min (97-137)
[2020-07-22] MEDS: ipratropium-albuterol 3 mL Neb INHALATION ×4 (03:17→20:08)
[2020-07-22 03:45] LABS: Basophils % 0.1 %; Eosinophils % 0.1 %; Hematocrit 35.4 % (42.0-52.0); Hemoglobin 10.7 g/dL (11.7-16.6); Lymphocytes # 0.3 10^3/uL (0.8-4.8); Lymphocytes % 3.2 %; Mean Corpuscular HGB Conc 30.2 g/dL (30.0-36.0); Mean Corpuscular Volume 95.9 fL (80-94); Mean Platelet Volume 9.5 fL (7.4-10.4); Monocytes # 0.2 10^3/uL (0.2-0.9); Monocytes % 2.4 %; Neutrophils # 8.81 10^3/uL (1.8-7.7); Neutrophils % 93.4 %; Nucleated Red Blood Cells % 0 %; Platelet Count 211 10^3/cmm (130-400); Red Blood Count 3.69 10^6/uL (4.1-5.3); Red Cell Distribution Width 16.5 % (12.1-15.1); White Blood Count 9.4 10^3/uL (4.0-10.0)
[2020-07-22 04:17] LABS: Alanine Aminotransferase < 5 U/L (0-41); Albumin Level 2.8 g/dL (3.5-5.2); Alkaline Phosphatase 70 IU/L (40-130); Anion Gap 18.2 (5-19); Aspartate Amino Transferase 17 U/L (0-40); Blood Urea Nitrogen 77 mg/dL (8-23); Calcium 8.4 mg/dL (8.5-10.5); Carbon Dioxide 22 mmol/L (22-29); Chloride 105 mmol/L (98-107); Globulin 2.8 g/dL (1.3-4.6); Glucose 101 mg/dL (65-115); Magnesium 1.8 mg/dL (1.7-2.3); Osmolality Calculated 313 mOsm/kg (285-295); Phosphorus 5.8 mg/dL (2.5-4.5); Potassium 5.2 mmol/L (3.5-5.1); Sodium 140 mmol/L (136-145); Total Bilirubin 0.2 mg/dL (0.15-1.2); Total Protein 5.6 g/dL (6.6-8.7)
--- NOTE | 2020-07-22 07:18 | P.PN_ITS ---
Subjective Subjective: Interval history: sob, on bipap Medications: Reviewed: Yes Medication Review Details: Current Medications Acetaminophen (Tylenol) 650 mg PO Q6H PRN PRN Reason: Mild/Mod Pain Or Temp >/= 101 Last Admin: 07/18/20 17:48 Dose: 650 mg Documented by: Hydrocodone Bitart/Acetaminophen ([place] 5-325 Mg) 1 tab PO Q6H PRN PRN Reason: MODERATE PAIN Last Admin: 07/16/20 16:02 Dose: 1 tab Documented by: Albuterol/Ipratropium (Duoneb) 3 ml INHALATION Q6H.RESPIRATORY [facility] Last Admin: 07/22/20 03:17 Dose: 3 ml Documented by: Amlodipine Besylate (Norvasc) 2.5 mg PO DAILY [facility] Last Admin: 07/21/20 09:25 Dose: 2.5 mg Documented by: Atorvastatin Calcium (Lipitor) 20 mg PO BEDTIME [facility] Last Admin: 07/21/20 21:27 Dose: 20 mg Documented by: Benzonatate (Benzonatate 100 Mg Capsule) 100 mg PO TID PRN PRN Reason: COUGH Calcitriol (Calcitriol 0.25 Mcg Capsule) 0.25 mcg PO DAILY [facility] Last Admin: 07/21/20 09:23 Dose: 0.25 mcg Documented by: Clonidine HCl (Catapres) 0.1 mg PO BID [facility] Stop: 07/23/20 23:59 Last Admin: 07/21/20 16:18 Dose: 0.1 mg Documented by: Ergocalciferol (Vitamin D2) 50,000 unit PO Q7D [facility] Last Admin: 07/16/20 10:33 Dose: 50,000 unit Documented by: Furosemide (Furosemide 10 Mg/Ml Sdv 10ml) 80 mg IVP BID [facility] Guaifenesin/Dextromethorphan (Guaifenesin-Dextromethorphan Udc 10 Ml) 5 ml PO Q4H PRN PRN Reason: COUGH Hydralazine HCl (Apresoline) 25 mg PO TID [facility] Last Admin: 07/21/20 21:26 Dose: 25 mg Documented by: Ferric Sodium Gluconate 125 mg (/ Sodium Chloride) 110 mls @ 110 mls/hr IV Q24H [facility] Stop: 07/22/20 09:59 Last Admin: 07/21/20 10:16 Dose: 110 mls/hr Documented by: Metoclopramide HCl (Reglan) 10 mg IVP ONCE PRN PRN Reason: N/V if zofran ineffective Metoprolol Tartrate (Lopressor) 25 mg PO [facility] Last Admin: 07/21/20 21:26 Dose: 25 mg Documented by: Mirtazapine (Remeron) 30 mg PO BEDTIME [facility] Last Admin: 07/21/20 21:26 Dose: 30 mg Documented by: Mycophenolate Mofetil (Cellcept) 500 mg PO TID [facility] Last Admin: 07/21/20 21:27 Dose: 500 mg Documented by: Ondansetron HCl (Zofran) 4 mg IVP Q4H PRN PRN Reason: NAUSEA AND VOMITING Last Admin: 07/22/20 02:06 Dose: 4 mg Documented by: Pantoprazole Sodium (Protonix) 40 mg PO DAILY [facility] Last Admin: 07/21/20 09:24 Dose: 40 mg Documented by: Prednisone (Prednisone) 10 mg PO DAILY [facility] Last Admin: 07/21/20 09:24 Dose: 10 mg Documented by: Fluticasone/Salmeterol (Advair Diskus 250-50) 1 puff INHALATION BID.RESPIRATORY [facility] Last Admin: 07/21/20 20:00 Dose: 1 puff Documented by: Sevelamer Carbonate (Sevelamer 800 Mg Tablet) 400 mg PO TID [facility] Last Admin: 07/21/20 21:27 Dose: 400 mg Documented by: Sodium Bicarbonate (Sodium Bicarbonate) 650 mg PO QID [facility] Last Admin: 07/21/20 21:26 Dose: 650 mg Documented by: Sodium Chloride ([place] Nasal [place]) 2 spray NASAL TID [facility] Last Admin: 07/22/20 02:33 Dose: Not Given Documented by: Vitals/I&O/Wt Last Vital Signs Temp 98.5 F 07/22/20 04:00 Pulse 86 07/22/20 04:00 Resp 24 H 07/22/20 04:00 BP 159/90 07/22/20 04:00 Pulse Ox 92 07/22/20 04:00 07/21/20 07/22/20 07/22/20 22:59 06:59 14:59 Intake Total 120 / 360 Output Total 750 / 2050 500 / 2550 Balance -630 / -1690 -500 / -2190 Weight last 48 hrs Weight 73.085 kg Weight 63.957 kg Physical Exam Narrative: EXAM NARRATIVE: elderly frail man SOB in bed, BiPAP vs noted. using bipap heent- nc/at, eomi skin rash stable neck supple lungs ronchi b/l heart reg, no rub abd soft, nt, nd, +BS ext + leg edema b/l neuro- awake,confused, weak + mueller catheter Urinary Catheter Management^: Mueller: Cath Placed During This Visit: no Reason for Continuing Indwelling Catheter: Other Data : 07/22/20 02:38 07/22/20 02:38 A&P Additional A&P Information 1. 1. CKD stage 4- i CALLED dr. Jeison Brown- [phone], lens marker at [facility]- Pt was first diagnosed w/ P-ANCA in . since has been treated w/ steroids, cytoxan and cr down to 1.2 mg/dl. Pt was not good w/ f/u and then agreed to take cellcept- and cr approx 2 mg/dl. Over the last year his cr has been rising to close to 3 mg/dl. pt has been loosing weight and having anemia. Per Dr. Brown, the pt had a BM bx and a neg GI eval. He feels that his CKD is progressing- he thinks, it may be time to dec immunosupression. - renal us c./w advanced CKD- small kidneys and echogenic -save the vein protocol- will need a AVF soon- if pt would want chronic HD -would taper down steroids and inc cellcept 500 tid, 2. Acute kidney injury, -improved uop w/ mueller and lasix -CR CL of 14. data has shown no benefit for early initiation of chronic HD. unless we can not control his volume and resp status -inc lasix -repeat cxr -per RN. Pts family consents to dialysis -consider Renal angiogram- will discuss w/ cardiology. however, i am not very hopeful that renal artery stents will reverse much of BOOGIE on CKD -monitor chemistries and urine output 2. Klebsiella UTI - continuing antibiotics, urine retention - mueller placed 3. Metabolic acidosis - po sodium bicarb- his bicarb improved to 20 4. Anemia - complete IV iron load. hgb abve 10- no epo -normal kappa/ lambda ratio 5. Hyperkalemia - low potassium diet, 6. Hypertension - improved. on multiple meds. q of NATY 7. replace magnesium as needed 8. phos improved w/ binders and calcitriol -vit d repletion 9. Rt Perineal vein DVT- d inc S heparin. eval for possible PE 10. pt needs nutrition. alb is 2.5. also needs PT 11. s/p ORIF of left femir POD # 10 Attestations Medical Necessity Statement*: ckd, sob, s/p hip ORIF Time Spent in Patient Care: 16 - 35 minutes Coding Level of Care Code Acute School Librarian for Elizabeth Ruiz
--- NOTE | 2020-07-22 07:27 | XR_ITS ---
WS: [id number] Portable AP semiupright chest, 07/22/2020 Clinical Data: sob/ chf Comparison: Portable chest, 07/20/2020. Findings: The patchy opacification seen throughout both lungs has increased slightly. There is a mode rate left pleural effusion but the right pleural effusion has diminished. The heart size is slightly smaller. XR/XR chest 1V portable [id number] Impression: 1. Bilateral patchy opacifications most likely acute pneumonia. . 2. Decrease in right pleural effusion and little change in left pleural effusio n.
--- NOTE | 2020-07-22 08:02 | CT_ITS ---
WS: [id number] CT CHEST TECHNIQUE: Noncontrast CT of the chest with coronal and sagittal reformatted images. CLINICAL INFORMATION: PNA COMPARISON: CT chest May 18, 2020 DLP: 567.[address] scans at [facility] use at least one of these dose optimization techniques: automat ed exposure control; mA and/or kV adjustment per patient size (includes targeted exams where dose is matched to clinical indication); or iterative reconstruction. FINDINGS: Moderate bilateral pleural effusions increased since May 18, 2020. Compressive atelectasis in t he lung bases. Bilateral perihilar and bilateral upper lobe hazy groundglass infiltrates consistent w ith pneumonia. Air space consolidation the left upper lobe along the fissure. Air bronchograms in the left hilum. Reactive mediastinal lymph nodes. Normal caliber thoracic aorta. No axillary lymphadenopathy. Diffuse body wall anasarca. Small hepatic cysts. CT/CT chest wo con [id number] IMPRESSION: 1. Moderate bilateral pleural effusions with compressive atelectasis in the julien ng bases. 2. Bilateral perihilar groundglass infiltrates extending into the upper lobes bilaterally. Findings consistent with pneumonia. 3. Air bronchograms with partial airspace consolidation involving the left hil um and left upper lobe along the fissure. 4. Reactive mediastinal lymph nodes. 5. Diffuse body wall anasarca.
--- NOTE | 2020-07-22 08:04 | USCV_ITS ---
Good Alegre Age: 80 Gender: M : 1940 Exam Date: 07/22/2020 12:18 Ordering Phys: Coy Peguero MD Technologist: Kim Lacey Exam Location: [facility]_ Indication: DVT HISTORY: DVT. PROCEDURES: Venous duplex imaging was performed in bilateral lower extremities. The following venous structures were evaluated: common femoral vein, profunda vein, proximal portion of the greater saphenous vein, superficial femoral vein, and the popliteal vein. In addition, the posterior tibial and peroneal trunk were evaluated. Serial compression, augmentation maneuvers, and spectral Doppler flow evaluation were performed. FINDINGS: Normal 2-D Doppler and augmentation and compressibility throughout the lower extremity venous structures. Additional imaging through the proximal calf veins also reveals no thrombus. Limited evaluation of the greater saphenous vein is patent with no thrombus.. CONCLUSIONS No evidence of right lower extremity DVT. No evidence of left lower extremity DVT. Philip Wilburn MD (Electronically Signed) Final Date: 22 July 2020 16:41 S
--- NOTE | 2020-07-22 09:00 | PC.OT ---
OT treatment attempted today. Pt would not engage in any activities. Pt grumbled incoherently when asked any questions and refused to perform in anyway. Co-sign: DEBRA Brothers
--- NOTE | 2020-07-22 10:37 | PM.PN ---
Subjective Subjective: Interval history: Patient is still extremely SOB and has required BIPAP at night , C.T Chest without contrast done in am has shown extensive PNA as well as B/L Pleural effusion. Medications: Reviewed: Yes Medication Review Details: Current Medications Acetaminophen (Tylenol) 650 mg PO Q6H PRN PRN Reason: Mild/Mod Pain Or Temp >/= 101 Last Admin: 07/18/20 17:48 Dose: 650 mg Documented by: Hydrocodone Bitart/Acetaminophen ([place] 5-325 Mg) 1 tab PO Q6H PRN PRN Reason: MODERATE PAIN Last Admin: 07/16/20 16:02 Dose: 1 tab Documented by: Albuterol/Ipratropium (Duoneb) 3 ml INHALATION Q6H.RESPIRATORY [facility] Last Admin: 07/22/20 03:17 Dose: 3 ml Documented by: Amlodipine Besylate (Norvasc) 2.5 mg PO DAILY [facility] Last Admin: 07/21/20 09:25 Dose: 2.5 mg Documented by: Atorvastatin Calcium (Lipitor) 20 mg PO BEDTIME [facility] Last Admin: 07/21/20 21:27 Dose: 20 mg Documented by: Benzonatate (Benzonatate 100 Mg Capsule) 100 mg PO TID PRN PRN Reason: COUGH Calcitriol (Calcitriol 0.25 Mcg Capsule) 0.25 mcg PO DAILY [facility] Last Admin: 07/21/20 09:23 Dose: 0.25 mcg Documented by: Clonidine HCl (Catapres) 0.1 mg PO BID [facility] Stop: 07/23/20 23:59 Last Admin: 07/21/20 16:18 Dose: 0.1 mg Documented by: Ergocalciferol (Vitamin D2) 50,000 unit PO Q7D [facility] Last Admin: 07/16/20 10:33 Dose: 50,000 unit Documented by: Furosemide (Furosemide 10 Mg/Ml Sdv 10ml) 80 mg IVP BID [place] Guaifenesin/Dextromethorphan (Guaifenesin-Dextromethorphan Udc 10 Ml) 5 ml PO Q4H PRN PRN Reason: COUGH Hydralazine HCl (Apresoline) 25 mg PO TID [facility] Last Admin: 07/21/20 21:26 Dose: 25 mg Documented by: Ferric Sodium Gluconate 125 mg (/ Sodium Chloride) 110 mls @ 110 mls/hr IV Q24H [facility] Stop: 07/22/20 09:59 Last Admin: 07/21/20 10:16 Dose: 110 mls/hr Documented by: Metoclopramide HCl (Reglan) 10 mg IVP ONCE PRN PRN Reason: N/V if zofran ineffective Metoprolol Tartrate (Lopressor) 25 mg PO [facility] Last Admin: 07/21/20 21:26 Dose: 25 mg Documented by: Mirtazapine (Remeron) 30 mg PO BEDTIME [facility] Last Admin: 07/21/20 21:26 Dose: 30 mg Documented by: Mycophenolate Mofetil (Cellcept) 500 mg PO TID [facility] Last Admin: 07/21/20 21:27 Dose: 500 mg Documented by: Ondansetron HCl (Zofran) 4 mg IVP Q4H PRN PRN Reason: NAUSEA AND VOMITING Last Admin: 07/22/20 02:06 Dose: 4 mg Documented by: Pantoprazole Sodium (Protonix) 40 mg PO DAILY [facility] Last Admin: 07/21/20 09:24 Dose: 40 mg Documented by: Prednisone (Prednisone) 10 mg PO DAILY [facility] Last Admin: 07/21/20 09:24 Dose: 10 mg Documented by: Fluticasone/Salmeterol (Advair Diskus 250-50) 1 puff INHALATION BID.RESPIRATORY [facility] Last Admin: 07/21/20 20:00 Dose: 1 puff Documented by: Sevelamer Carbonate (Sevelamer 800 Mg Tablet) 400 mg PO TID [facility] Last Admin: 07/21/20 21:27 Dose: 400 mg Documented by: Sodium Bicarbonate (Sodium Bicarbonate) 650 mg PO QID [facility] Last Admin: 07/21/20 21:26 Dose: 650 mg Documented by: Sodium Chloride ([place] Nasal [place]) 2 spray NASAL TID [facility] Last Admin: 07/22/20 02:33 Dose: Not Given Documented by: Vitals/I&O/Wt Last Vital Signs Temp 98.5 F 07/22/20 04:00 Pulse 92 07/22/20 08:35 Resp 18 07/22/20 08:35 BP 161/86 07/22/20 07:32 Pulse Ox 90 07/22/20 08:35 07/21/20 07/22/20 07/22/20 22:59 06:59 14:59 Intake Total 120 / 360 Output Total 750 / 2050 500 / 2550 Balance -630 / -1690 -500 / -2190 Weight last 48 hrs Weight 73.085 kg Weight 63.957 kg Physical Exam Const: COMMON NORMALS: patient oriented x3 HENMT: COMMON NORMALS: normocephalic, atraumatic, hearing grossly normal bilaterally and external ears normal HEAD & SCALP: normocephalic and atraumatic EXTERNAL EAR: Yes external ears normal Eye: COMMON NORMALS: no scleral icterus GENERAL EYE: appearance normal, both eyes and all related structures Chest: COMMONS NORMALS: normal inspection of the chest and normal palpation of entire chest wall CHEST: Yes Symmetrical chest wall rise Resp: COMMON NORMALS: normal respiratory effort, No retractions and No use of accessory muscles EFFORT & INSPECTION: Yes symmetric chest movement OTHER: B/L diffuse Crackles present in both lungs pereira. Cardio: COMMON NORMALS: regular rate, regular rhythm, S1 normal heart sound present, S2 normal heart sound present, No gallops present (Cardio), No murmurs present (Cardio), No rub (Cardio) and Peripheral pulses 2+ throughout RATE: regular rate RHYTHM: regular rhythm HEART SOUNDS: S1 normal heart sound present and S2 normal heart sound present PERIPHERAL PULSES: Peripheral pulses 2+ throughout GI: COMMON NORMALS: Normal to inspection, nondistended, normoactive bowel sounds present, Soft to palpation, non-tender, No hepatosplenomegaly present and no masses AUSCULTATION: Yes normoactive bowel sounds PALPATION: Yes Soft to palpation and Yes No hepatosplenomegaly present RECTAL EXAM: Yes deferred Extremity: COMMON NORMALS: no clubbing, cyanosis or edema and no pedal edema Neuro: COMMON NORMALS: patient oriented x3 Urinary Catheter Management^: Lund: Cath Placed During This Visit: no Reason for Continuing Indwelling Catheter: Other Data : 07/22/20 02:38 07/22/20 02:38 A&P Assessment and plan (1) Heart failure: - Ac on Chronic HFpEF Exacerbation:: ( Echo (05/2020): EF=62%, mild concentric LVH, mild AR, trace MR, trace TR ). -Has diffuse crackles in both Lung pereira. 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 Renal function unchanged -Nephrology consult appreciated -Had renal ultrasound done last month which showed markedly diminished velocities in the renal arteries which may be suggestive of proximal stenosis, unfortunately cannot do CTA due to renal function. Repeat US shows small volume kidneys bilaterally with increased echogenicity consistent with chronic medical renal disease -urine lytes, repeat UA noted, CPK wnl, elevated PTH consistent with secondary hyperparathyroidism; low vitamin D indicating vitamin D deficiency, on supplementation -Follows up with nephrology (Dr. Earl Brown, ) at [facility] -off IVF; encourage oral hydration -has Lund catheter in place, continue to monitor Is & Os, assess daily for removal -on sodium bicarbonate drip -decreased BP meds to increase renal perfusion -cellcept resumed at 500 mg BID (07/16), steroids titrated -noted potential need for dialysis with progression of CKD Status: Chronic Qualifiers: Chronic kidney disease stage 3 subtype: unspecified whether 3a or 3b Qualified Code(s): N18.30 - Chronic kidney disease, stage 3 unspecified (4) Anemia: -With episodes of R sided epistaxis that required packing on 07/08 -Has known history of anemia and has had prior GI work-up which per patient was negative for any acute bleeding source -Prior admission last month for severe anemia with hemoglobin as low as 4 and requirement of transfusion of blood products -s/p 1 unit with improvement in Hg up to 10 (06/15) -continue to monitor H/H closely; s/p 1 unit of PRBCs (07/15) with noted stability thereafter -on IV iron, iron studies noted Status: Chronic Qualifiers: Anemia type: unspecified type Qualified Code(s): D64.9 - Anemia, unspecified (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 Would hold off on this for now until sure no need for placement of temporary dialysis catheter -Found to have right perineal vein thrombosis on venous duplex done on 05/16/20. -May not be a good candidate for long-term anticoagulation given underlying anemia with need for transfusion of blood products, recurrent falls Status: Acute Qualifiers: Affected thrombotic vein of extremity: unspecified vein of extremity Chronicity: chronic DVT location: lower extremity Laterality: unspecified laterality Qualified Code(s): I82.509 - Chronic embolism and thrombosis of unspecified deep veins of unspecified lower extremity Additional A&P Information -Treated for COVID-19 infection last month -Recurrent falls, generalized weakness, physical deconditioning, previously had rhabdomyolysis which resolved; PT evaluation appreciated, strict fall precautions -Known history of hypertension, on oral antihypertensives -GERD; on PPI and carafate -Hyperlipidemia; continue statin -Skin cancer affecting L ear; currently undergoing treatment -Very hard of hearing; hearing slightly better on the R -underlying cognitive impairment; reorient as needed -ST evaluation done due to noted difficulty swallowing; no overt aspiration noted, regular consistently recommended as well as crushing meds which patient has declined, he wants to take his medications whole -cardiac diet as tolerated -GI ppx with PPI -DVT ppx with SCDs,Eliquis 2.5 mg q12 h daily -Dispo: [facility] -Code status: DNR/DNI -guarded prognosis given advanced age, underlying comorbidities, issues with bleeding vs. anticoagulation, continued renal impairment Attestations Medical Necessity Statement*: Patient needs to be in hospital for the management of H.F as well as PNA Coding Level of Care Code Acute Net Finisher for g Fwd Exam Comprehensive Diagnoses Heart failure I50.9 Pneumonia J18.9 Chronic kidney disease, stage III (moderate) N18.30 Chronic kidney disease stage 3 subtype: unspecified whether 3a or 3b Anemia D64.9 Anemia type: unspecified type Polyarteritis nodosa M30.0 DVT (deep venous thrombosis) I82.509 Affected thrombotic vein of extremity: unspecified vein of extremity Chronicity: chronic DVT location: lower extremity Laterality: unspecified laterality
--- NOTE | 2020-07-22 10:38 | PC.NURSE ---
PT to CT at this time.
[2020-07-22] MEDS: FUROsemide 10 mg/mL SDV 4mL 40 MG IVP (11:18)
--- NOTE | 2020-07-22 13:29 | PC.CHAP ---
Pastoral Care Encounter/Spiritual Assessment Type of Contact [] Declined carpet installer helper visit [] Patient/Family/Request visit [] Outpatient visit [xx] Follow-up visit [] Physician referral [] Code/Alert [] Routine visit [] Staff referral [] Actively dying [xx] Patient sleeping [] Family support [] [] Out of room [] Palliative care [] [] Receiving care in room [] Pre-surgical visit [] Trauma [xx] Long length of stay [] ICU visit [xx] Other: Follow up visit attempted again Relational/Emotional Strength [] Patient feels connected with others/family/visitors/staff [] Distress [] Loneliness/isolation [] Abandonment Spirituality of Patient [] Person of Yumiko [] Attends Yazidi of their Yumiko [] Believes in Prayer [] Reads Bible or Oriental Orthodox materials [] There are Spiritual issues to be addressed Strike Off Machine Operator Interventions [] Prayer [] Active listening [] Non-anxious presence [] Spiritual/emotional support [] Crisis/trauma care [] Spiritual counseling [] Bereavement support [] Provided bereavement packet [] Provided Bible/devotional materials [] Provided toy/stuffed animal, coloring book to patient or family member [] Provided Communion [] Anointing/[place] [] Salvation [] Completed spiritual assessment [] Other: Impact on Illness or Injury [] Angry [] Fearful [] Anxious [] Often cries [] Exhaustion [] Unable to work [] Unable to attend tenriism [] Unable to walk/stand [] Unable to read [] Unable to drive [] Unable to eat/drink [] Unable to sleep [] Unable to be with family [xx] Patient intubated [] Other: Summary Pt is usually sedated and follow up visit is difficult to accomplish. Time spent with patient 2 minutes
[2020-07-22] MEDS: FUROsemide 10 mg/mL SDV 10mL 80 MG IVP ×2 (16:30→23:51)
[2020-07-22] MEDS: cloNIDine 0.1 mg Tablet PO (17:48)
--- NOTE | 2020-07-22 19:21 | PC.NURSE ---
End of shift report Patient has had an uneventful day. Patient's family son Jake has discussed with Dr. Peguero about possible placing patient on comfort care. Patient has been refusing to take his medications today except when his daughter in law was here and then he only took one of them. Report given to [facility].
--- NOTE | 2020-07-22 22:23 | PC.NURSE ---
Patient refused med. Attempted to administer PO medications to patient at 2114. Patient stated he does not feel up to taking them. Attempted to administer PO med to patient and patient stated I will not swallow them pills. Patient was educated on the importance of each medication with patient expressing his understanding.
[2020-07-23] VITALS (11 sets, daily range): BP systolic 146–168; BP diastolic 82–92; PULSE 77–94; RESP 16–24; TEMP 37–37.6; O2SAT 89–96
[2020-07-23 02:52] LABS: Basophils % 0.1 %; Eosinophils % 0.3 %; Hematocrit 33.9 % (42.0-52.0); Hemoglobin 10.1 g/dL (11.7-16.6); Lymphocytes # 0.2 10^3/uL (0.8-4.8); Mean Corpuscular HGB Conc 29.8 g/dL (30.0-36.0); Mean Corpuscular Hemoglobin 28.3 pg (28.0-34.0); Monocytes # 0.1 10^3/uL (0.2-0.9); Monocytes % 1.8 %; Neutrophils # 7.48 10^3/uL (1.8-7.7); Neutrophils % 94.3 %; Nucleated Red Blood Cells % 0 %; Platelet Count 187 10^3/cmm (130-400); Red Blood Count 3.57 10^6/uL (4.1-5.3); Red Cell Distribution Width 16.2 % (12.1-15.1); White Blood Count 7.9 10^3/uL (4.0-10.0)
[2020-07-23] MEDS: ipratropium-albuterol 3 mL Neb INHALATION ×4 (03:15→20:44)
[2020-07-23 03:29] LABS: Alanine Aminotransferase < 5 U/L (0-41); Albumin Level 2.7 g/dL (3.5-5.2); Alkaline Phosphatase 65 IU/L (40-130); Anion Gap 16.9 (5-19); Aspartate Amino Transferase 17 U/L (0-40); Blood Urea Nitrogen 76 mg/dL (8-23); Calcium 8.2 mg/dL (8.5-10.5); Carbon Dioxide 22 mmol/L (22-29); Chloride 104 mmol/L (98-107); Globulin 2.4 g/dL (1.3-4.6); Glucose 80 mg/dL (65-115); Magnesium 1.7 mg/dL (1.7-2.3); Osmolality Calculated 308 mOsm/kg (285-295); Phosphorus 5.9 mg/dL (2.5-4.5); Potassium 4.9 mmol/L (3.5-5.1); Sodium 138 mmol/L (136-145); Total Bilirubin 0.2 mg/dL (0.15-1.2); Total Protein 5.1 g/dL (6.6-8.7)
[2020-07-23] MEDS: ondansetron 2 mg/ML SDV 2 mL 4 MG IVP ×2 (07:36→15:08)
[2020-07-23] MEDS: FUROsemide 10 mg/mL SDV 10mL 80 MG IVP ×2 (07:37→18:39)
--- NOTE | 2020-07-23 07:39 | P.PN_ITS ---
Subjective Subjective: Interval history: still sob but improved from yesterday. + cough, weak, poor appetite. Medications: Reviewed: Yes Medication Review Details: Current Medications Acetaminophen (Tylenol) 650 mg PO Q6H PRN PRN Reason: Mild/Mod Pain Or Temp >/= 101 Last Admin: 07/18/20 17:48 Dose: 650 mg Documented by: Hydrocodone Bitart/Acetaminophen ([place] 5-325 Mg) 1 tab PO Q6H PRN PRN Reason: MODERATE PAIN Last Admin: 07/16/20 16:02 Dose: 1 tab Documented by: Albuterol/Ipratropium (Duoneb) 3 ml INHALATION Q6H.RESPIRATORY [facility] Last Admin: 07/23/20 03:15 Dose: 3 ml Documented by: Amlodipine Besylate (Norvasc) 2.5 mg PO DAILY [facility] Last Admin: 07/22/20 11:18 Dose: Not Given Documented by: Apixaban (Apixaban 5 Mg Tablet) 2.5 mg PO BID [facility] Atorvastatin Calcium (Lipitor) 20 mg PO BEDTIME [facility] Last Admin: 07/22/20 22:22 Dose: Not Given Documented by: Benzonatate (Benzonatate 100 Mg Capsule) 100 mg PO TID PRN PRN Reason: COUGH Calcitriol (Calcitriol 0.25 Mcg Capsule) 0.25 mcg PO DAILY [facility] Last Admin: 07/22/20 11:19 Dose: Not Given Documented by: Clonidine HCl (Catapres) 0.1 mg PO BID [facility] Stop: 07/23/20 23:59 Last Admin: 07/22/20 17:48 Dose: 0.1 mg Documented by: Ergocalciferol (Vitamin D2) 50,000 unit PO Q7D [facility] Last Admin: 07/16/20 10:33 Dose: 50,000 unit Documented by: Furosemide (Furosemide 10 Mg/Ml Sdv 10ml) 80 mg IVP Q8H [facility] Last Admin: 07/23/20 07:37 Dose: 80 mg Documented by: Guaifenesin/Dextromethorphan (Guaifenesin-Dextromethorphan Udc 10 Ml) 5 ml PO Q4H PRN PRN Reason: COUGH Hydralazine HCl (Apresoline) 25 mg PO TID [facility] Last Admin: 07/22/20 22:22 Dose: Not Given Documented by: Hydralazine HCl (Hydralazine 20 Mg/Ml Inj 1 Ml) 10 mg IVP Q4H PRN PRN Reason: AGITATION Imipenem/Cilastatin Sodium 250 (mg/ Sodium Chloride) 100 mls @ 200 mls/hr IV Q12H [facility]; Protocol Last Admin: 07/22/20 22:59 Dose: 200 mls/hr Documented by: Vancomycin HCl 1,250 mg/ (Sodium Chloride) 250 mls @ 200 mls/hr IV Q48H [facility] Last Infusion: 07/22/20 15:54 Dose: Infused Documented by: Metoclopramide HCl (Reglan) 10 mg IVP ONCE PRN PRN Reason: N/V if zofran ineffective Metoprolol Tartrate (Lopressor) 25 mg PO [facility] Last Admin: 07/22/20 22:22 Dose: Not Given Documented by: Mirtazapine (Remeron) 30 mg PO BEDTIME [facility] Last Admin: 07/22/20 22:22 Dose: Not Given Documented by: Mycophenolate Mofetil (Cellcept) 500 mg PO TID [facility] Last Admin: 07/22/20 22:22 Dose: Not Given Documented by: Ondansetron HCl (Zofran) 4 mg IVP Q4H PRN PRN Reason: NAUSEA AND VOMITING Last Admin: 07/23/20 07:36 Dose: 4 mg Documented by: Pantoprazole Sodium (Protonix) 40 mg PO DAILY [facility] Last Admin: 07/22/20 11:19 Dose: Not Given Documented by: Prednisone (Prednisone) 10 mg PO DAILY [facility] Last Admin: 07/22/20 11:20 Dose: Not Given Documented by: Fluticasone/Salmeterol (Advair Diskus 250-50) 1 puff INHALATION BID.RESPIRATORY [facility] Last Admin: 07/22/20 20:08 Dose: Not Given Documented by: Sevelamer Carbonate (Sevelamer 800 Mg Tablet) 400 mg PO TID [facility] Last Admin: 07/22/20 22:23 Dose: Not Given Documented by: Sodium Chloride ([place] Nasal [place]) 2 spray NASAL TID [facility] Last Admin: 07/22/20 22:23 Dose: Not Given Documented by: Vitals/I&O/Wt Last Vital Signs Temp 99.6 F 07/23/20 04:00 Pulse 90 07/23/20 04:00 Resp 20 H 07/23/20 04:00 BP 168/82 07/23/20 04:00 Pulse Ox 90 07/23/20 04:00 07/22/20 07/23/20 07/23/20 22:59 06:59 14:59 Intake Total 250 / 650 120 / 770 Output Total 1675 / 1675 1800 / 3475 425 / 425 Balance -1425 / -1025 -1680 / -2705 -425 / -425 Weight last 48 hrs Weight 67.585 kg Weight 73.085 kg Physical Exam Narrative: EXAM NARRATIVE: elderly frail man SOB in bed, BiPAP vs noted. using bipap heent- nc/at, eomi skin rash stable neck supple lungs ronchi b/l heart reg, no rub abd soft, nt, nd, +BS ext + leg edema b/l neuro- awake,confused, weak + mueller catheter Urinary Catheter Management^: Mueller: Cath Placed During This Visit: no Reason for Continuing Indwelling Catheter: Other Data : 07/23/20 02:23 07/23/20 02:23 A&P Additional A&P Information 1. CKD stage 4- i CALLED dr. Jeison Brown- [phone], lawn caretaker at [facility]- Pt was first diagnosed w/ P-ANCA in 2003. since has been treated w/ steroids, cytoxan and cr down to 1.2 mg/dl. Pt was not good w/ f/u and then agreed to take cellcept- and cr approx 2 mg/dl. Over the last year his cr has been rising to close to 3 mg/dl. pt has been loosing weight and having anemia. Per Dr. Brown, the pt had a BM bx and a neg GI eval. He feels that his CKD is progressing- he thinks, it may be time to dec immunosupression. - renal us c./w advanced CKD- small kidneys and echogenic -save the vein protocol- will need a AVF soon- if pt would want chronic HD -given pna, and advanced renal disease. consider dec steroids further, and decc cellcept to 500 mgm po bid- consider holding cellcept. 2. Acute kidney injury, -improved uop w/ mueller and lasix -CR CL of 14. data has shown no benefit for early initiation of chronic HD. also recent study from [place] compared early and late starts for HD in [place]- late starts did better. no benefit for early HD initiation -as pts resp status is improving w/ lasix and abx- will cont lasix 80 mg iv q 12 hr -repeat cxr tomorrow or Sat -if fails diuresis or if bun/ cr rise- then initiate HD -per RN. Pts family consents to dialysis -consider Renal angiogram- will discuss w/ cardiology. however, i am not very hopeful that renal artery stents will reverse much of BOOGIE on CKD -monitor chemistries and urine output 2. Klebsiella UTI - continuing antibiotics, urine retention - umeller placed PNA- ABXX- RENAL DOSE 3. Metabolic acidosis - po sodium bicarb- his bicarb improved to 22- dec sodium bicarb 4. Anemia - complete IV iron load. hgb abve 10- no epo -normal kappa/ lambda ratio 5. Hyperkalemia - low potassium diet, -improving w/ lasix 6. Hypertension - improved. on multiple meds. q of NATY 7. replace magnesium as needed 8. hyperphosphatemia and secondary hyperparathyroidism- cont binders and c alcitriol -vit d repletion 9. Rt Perineal vein DVT- a/c per medicine- CONSIDER HEPARIN, NOT ELIQUIS- PT MAY NEED A DIALYSIS CATHETER SOON 10. pt needs nutrition. alb is 2.5. also needs PT 11. s/p ORIF of left femUR Attestations Medical Necessity Statement*: PNA, RESP DISTRESS, CHF, [place] ON CKD Time Spent in Patient Care: 16 - 35 minutes Coding Level of Care Code Acute Professor Of French for Elizabeth Ruiz
--- NOTE | 2020-07-23 07:41 | PC.OT ---
OT NOTE: PATIENT HAS REFUSED OT TREATMENT DAILY SINCE LAST WEEK. PER HEART TO HEART, OK TO HOLD THERAPY FOR A FEW DAYS. WILL HOLD THERAPY TODAY.
--- NOTE | 2020-07-23 11:32 | PC.SOCIAL ---
IMM Updated Updated pt on Pg 2 IMM. Copy provided to pt. No questions voiced. Signed, dated, & timed copy in chart.
--- NOTE | 2020-07-23 12:34 | XR_ITS ---
WS: [id number] CHEST XRAY TECHNIQUE: Portable chest. CLINICAL INFORMATION: picc placement COMPARISON: July 22, 2020 FINDINGS: Right PICC line with tip in distal SVC on the final imaging. Heart: Cardiomegaly. Lungs: Diffuse bilateral interstitial and airspace infiltrates slightly progressed since yesterday. S ome airspace consolidation in the perihilar regions and right lower lobe. Bones: Normal visualized bony structures. XR/XR chest 1V portable [id number] IMPRESSION: 1. Right PICC line with tip in distal SVC. No pneumothorax. 2. Diffuse bilateral interstitial and airspace infiltrates slightly progressed compared to yesterday.
[2020-07-23] MEDS: heparin 5,000 unit/mL INJ 1 mL 5000 UNIT SUBCUT (18:36)
--- NOTE | 2020-07-23 18:40 | PM.PN ---
Subjective Subjective: Interval history: Patient is slightly more responsive today.Though still not completely participating in his care.Has refused medications and still not eating or drinking properly. Remains in significant respiratory distress. Medications: Reviewed: Yes Vitals/I&O/Wt Last Vital Signs Temp 98.6 F 07/23/20 16:00 Pulse 87 07/23/20 16:00 Resp 17 07/23/20 16:00 BP 146/83 07/23/20 16:00 Pulse Ox 92 07/23/20 16:00 07/23/20 07/23/20 07/23/20 06:59 14:59 22:59 Intake Total 220 / 870 Output Total 1800 / 3475 1275 / 1275 Balance -1580 / -2605 -1275 / -1275 Weight last 48 hrs Weight 67.585 kg Weight 73.085 kg Physical Exam HENMT: COMMON NORMALS: normocephalic, atraumatic, hearing grossly normal bilaterally and external ears normal HEAD & SCALP: normocephalic and atraumatic EXTERNAL EAR: Yes external ears normal Eye: COMMON NORMALS: no scleral icterus GENERAL EYE: appearance normal, both eyes and all related structures Chest: COMMONS NORMALS: normal inspection of the chest and normal palpation of entire chest wall CHEST: Yes Symmetrical chest wall rise Resp: COMMON NORMALS: normal respiratory effort, No retractions and No use of accessory muscles EFFORT & INSPECTION: Yes symmetric chest movement, Yes abnormal respiratory pattern, Yes tachypneic, Yes respiratory distress, Yes labored and Yes uses accessory muscles AUSCULTATION: crackles, rhonchi and diminished lung sounds OTHER: B/L diffuse Crackles present in both lungs pereira. Cardio: COMMON NORMALS: regular rate, regular rhythm, S1 normal heart sound present, S2 normal heart sound present, No gallops present (Cardio), No murmurs present (Cardio), No rub (Cardio) and Peripheral pulses 2+ throughout RATE: regular rate RHYTHM: regular rhythm HEART SOUNDS: S1 normal heart sound present and S2 normal heart sound present PERIPHERAL PULSES: Peripheral pulses 2+ throughout GI: COMMON NORMALS: Normal to inspection, nondistended, normoactive bowel sounds present, Soft to palpation, non-tender, No hepatosplenomegaly present and no masses AUSCULTATION: Yes normoactive bowel sounds PALPATION: Yes Soft to palpation and Yes No hepatosplenomegaly present RECTAL EXAM: Yes deferred Extremity: COMMON NORMALS: no clubbing, cyanosis or edema and no pedal edema Urinary Catheter Management^: Lund: Cath Placed During This Visit: no Reason for Continuing Indwelling Catheter: Acute Urinary Retention or Obstruction Data : 07/23/20 02:23 07/23/20 02:23 A&P Assessment and plan (1) Heart failure: - Ac on Chronic HFpEF Exacerbation:: ( Echo (05/2020): EF=62%, mild concentric LVH, mild AR, trace MR, trace TR ). -Has diffuse crackles in both Lung pereira. 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 Renal function unchanged -Nephrology consult appreciated -Had renal ultrasound done last month which showed markedly diminished velocities in the renal arteries which may be suggestive of proximal stenosis, unfortunately cannot do CTA due to renal function. Repeat US shows small volume kidneys bilaterally with increased echogenicity consistent with chronic medical renal disease -urine lytes, repeat UA noted, CPK wnl, elevated PTH consistent with secondary hyperparathyroidism; low vitamin D indicating vitamin D deficiency, on supplementation -Follows up with nephrology (Dr. Earl Brown, ) at [facility] -off IVF; encourage oral hydration -has Lund catheter in place, continue to monitor Is & Os, assess daily for removal -on sodium bicarbonate drip -decreased BP meds to increase renal perfusion -cellcept resumed at 500 mg BID (07/16), steroids titrated -noted potential need for dialysis with progression of CKD Status: Chronic Qualifiers: Chronic kidney disease stage 3 subtype: unspecified whether 3a or 3b Qualified Code(s): N18.30 - Chronic kidney disease, stage 3 unspecified (4) Anemia: -With episodes of R sided epistaxis that required packing on 07/08 -Has known history of anemia and has had prior GI work-up which per patient was negative for any acute bleeding source -Prior admission last month for severe anemia with hemoglobin as low as 4 and requirement of transfusion of blood products -s/p 1 unit with improvement in Hg up to 10 (06/15) -continue to monitor H/H closely; s/p 1 unit of PRBCs (07/15) with noted stability thereafter -on IV iron, iron studies noted Status: Chronic Qualifiers: Anemia type: unspecified type Qualified Code(s): D64.9 - Anemia, unspecified (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 Would hold off on this for now until sure no need for placement of temporary dialysis catheter -Found to have right perineal vein thrombosis on venous duplex done on 05/16/20. -May not be a good candidate for long-term anticoagulation given underlying anemia with need for transfusion of blood products, recurrent falls Status: Acute Qualifiers: Affected thrombotic vein of extremity: unspecified vein of extremity Chronicity: chronic DVT location: lower extremity Laterality: unspecified laterality Qualified Code(s): I82.509 - Chronic embolism and thrombosis of unspecified deep veins of unspecified lower extremity Additional A&P Information -Treated for COVID-19 infection last month -Recurrent falls, generalized weakness, physical deconditioning, previously had rhabdomyolysis which resolved; PT evaluation appreciated, strict fall precautions -Known history of hypertension, on oral antihypertensives -GERD; on PPI and carafate -Hyperlipidemia; continue statin -Skin cancer affecting L ear; currently undergoing treatment -Very hard of hearing; hearing slightly better on the R -underlying cognitive impairment; reorient as needed -ST evaluation done due to noted difficulty swallowing; no overt aspiration noted, regular consistently recommended as well as crushing meds which patient has declined, he wants to take his medications whole -cardiac diet as tolerated -GI ppx with PPI -DVT ppx with SCDs,Eliquis 2.5 mg q12 h daily -Dispo: [facility] -Code status: DNR/DNI -guarded prognosis given advanced age, underlying comorbidities, issues with bleeding vs. anticoagulation, continued renal impairment Attestations Medical Necessity Statement*: Patient needs to be in hospital for the management of heart failure and PNA Coding Level of Care Code Acute Professor Of Food Biochemistry for [employer] Fwd Diagnoses Heart failure I50.9 Pneumonia J18.9 Chronic kidney disease, stage III (moderate) N18.30 Chronic kidney disease stage 3 subtype: unspecified whether 3a or 3b Anemia D64.9 Anemia type: unspecified type Polyarteritis nodosa M30.0 DVT (deep venous thrombosis) I82.509 Affected thrombotic vein of extremity: unspecified vein of extremity Chronicity: chronic DVT location: lower extremity Laterality: unspecified laterality
[2020-07-23] MEDS: labetalol 5 mg/mL SDV 20mL 10 MG IVP (18:42)
[2020-07-24] VITALS (12 sets, daily range): BP systolic 126–165; BP diastolic 71–87; PULSE 71–89; RESP 15–22; TEMP 36.6–37.8; O2SAT 83–97
[2020-07-24] MEDS: ipratropium-albuterol 3 mL Neb INHALATION ×3 (03:00→20:36)
--- NOTE | 2020-07-24 03:26 | PC.RESP ---
PT's O2 sat was 83% on [address] pt on bipap but pt couldn't tolerate it due to anxiety and being nauseated. Contacted Dr. Griffith. Dr. garibay with placing non-rebreather on pt. Pt's O2 sat is not 93% on 15 lpm NRB.
[2020-07-24 05:42] LABS: Basophils % 0.1 %; Eosinophils % 0.5 %; Hematocrit 31.3 % (42.0-52.0); Hemoglobin 9.5 g/dL (11.7-16.6); Lymphocytes # 0.3 10^3/uL (0.8-4.8); Lymphocytes % 3.4 %; Mean Corpuscular HGB Conc 30.4 g/dL (30.0-36.0); Mean Corpuscular Hemoglobin 29.2 pg (28.0-34.0); Mean Corpuscular Volume 96.3 fL (80-94); Mean Platelet Volume 9.9 fL (7.4-10.4); Monocytes # 0.1 10^3/uL (0.2-0.9); Monocytes % 1.1 %; Neutrophils # 7.89 10^3/uL (1.8-7.7); Neutrophils % 94.4 %; Nucleated Red Blood Cells % 0 %; Platelet Count 178 10^3/cmm (130-400); Red Blood Count 3.25 10^6/uL (4.1-5.3); White Blood Count 8.4 10^3/uL (4.0-10.0)
[2020-07-24 06:03] LABS: Alanine Aminotransferase < 5 U/L (0-41); Albumin Level 2.5 g/dL (3.5-5.2); Alkaline Phosphatase 81 IU/L (40-130); Anion Gap 18.8 (5-19); Aspartate Amino Transferase 17 U/L (0-40); Blood Urea Nitrogen 78 mg/dL (8-23); Carbon Dioxide 23 mmol/L (22-29); Chloride 105 mmol/L (98-107); Globulin 2.4 g/dL (1.3-4.6); Glucose 87 mg/dL (65-115); Magnesium 1.8 mg/dL (1.7-2.3); Osmolality Calculated 317 mOsm/kg (285-295); Phosphorus 6.3 mg/dL (2.5-4.5); Potassium 4.8 mmol/L (3.5-5.1); Sodium 142 mmol/L (136-145); Total Bilirubin 0.2 mg/dL (0.15-1.2); Total Protein 4.9 g/dL (6.6-8.7)
[2020-07-24] MEDS: saline nasal spray 44mL Btl 2 SPRAY NASAL ×3 (10:08→21:40)
[2020-07-24] MEDS: predniSONE 10 mg Tablet PO (10:10)
[2020-07-24] MEDS: pantoprazole DR 40 mg Tablet PO (10:10)
[2020-07-24] MEDS: sevelamer 800 mg Tablet 400 MG PO ×3 (10:11→21:39)
[2020-07-24] MEDS: amlodipine 10 mg Tablet 2.5 MG PO (10:12)
[2020-07-24] MEDS: FUROsemide 10 mg/mL SDV 10mL 80 MG IVP (10:12)
--- NOTE | 2020-07-24 10:42 | PC.RESP ---
This Rt called to code blue and emergencies in er, unable to return for tx.
--- NOTE | 2020-07-24 11:21 | P.PN_ITS ---
Subjective Subjective: Interval history: Somewhat drowsy, poorly interactive. Remains on nonrebreather. Was refusing medicine yesterday, agreed to take them this morning. Minimal extremity edema. Poor oral intake of food and fluid. Medications: Reviewed: Yes Medication Review Details: Current Medications Acetaminophen (Tylenol) 650 mg PO Q6H PRN PRN Reason: Mild/Mod Pain Or Temp >/= 101 Last Admin: 07/18/20 17:48 Dose: 650 mg Documented by: Hydrocodone Bitart/Acetaminophen ([place] 5-325 Mg) 1 tab PO Q6H PRN PRN Reason: MODERATE PAIN Last Admin: 07/16/20 16:02 Dose: 1 tab Documented by: Albuterol/Ipratropium (Duoneb) 3 ml INHALATION Q6H.RESPIRATORY [facility] Last Admin: 07/23/20 03:15 Dose: 3 ml Documented by: Amlodipine Besylate (Norvasc) 2.5 mg PO DAILY [facility] Last Admin: 07/22/20 11:18 Dose: Not Given Documented by: Apixaban (Apixaban 5 Mg Tablet) 2.5 mg PO BID [facility] Atorvastatin Calcium (Lipitor) 20 mg PO BEDTIME [facility] Last Admin: 07/22/20 22:22 Dose: Not Given Documented by: Benzonatate (Benzonatate 100 Mg Capsule) 100 mg PO TID PRN PRN Reason: COUGH Calcitriol (Calcitriol 0.25 Mcg Capsule) 0.25 mcg PO DAILY [facility] Last Admin: 07/22/20 11:19 Dose: Not Given Documented by: Clonidine HCl (Catapres) 0.1 mg PO BID [facility] Stop: 07/23/20 23:59 Last Admin: 07/22/20 17:48 Dose: 0.1 mg Documented by: Ergocalciferol (Vitamin D2) 50,000 unit PO Q7D [facility] Last Admin: 07/16/20 10:33 Dose: 50,000 unit Documented by: Furosemide (Furosemide 10 Mg/Ml Sdv 10ml) 80 mg IVP Q8H [facility] Last Admin: 07/23/20 07:37 Dose: 80 mg Documented by: Guaifenesin/Dextromethorphan (Guaifenesin-Dextromethorphan Udc 10 Ml) 5 ml PO Q4H PRN PRN Reason: COUGH Hydralazine HCl (Apresoline) 25 mg PO TID [facility] Last Admin: 07/22/20 22:22 Dose: Not Given Documented by: Hydralazine HCl (Hydralazine 20 Mg/Ml Inj 1 Ml) 10 mg IVP Q4H PRN PRN Reason: AGITATION Imipenem/Cilastatin Sodium 250 (mg/ Sodium Chloride) 100 mls @ 200 mls/hr IV Q12H [facility]; Protocol Last Admin: 07/22/20 22:59 Dose: 200 mls/hr Documented by: Vancomycin HCl 1,250 mg/ (Sodium Chloride) 250 mls @ 200 mls/hr IV Q48H [facility] Last Infusion: 07/22/20 15:54 Dose: Infused Documented by: Metoclopramide HCl (Reglan) 10 mg IVP ONCE PRN PRN Reason: N/V if zofran ineffective Metoprolol Tartrate (Lopressor) 25 mg PO , [facility] Last Admin: 07/22/20 22:22 Dose: Not Given Documented by: Mirtazapine (Remeron) 30 mg PO BEDTIME [facility] Last Admin: 07/22/20 22:22 Dose: Not Given Documented by: Mycophenolate Mofetil (Cellcept) 500 mg PO TID [facility] Last Admin: 07/22/20 22:22 Dose: Not Given Documented by: Ondansetron HCl (Zofran) 4 mg IVP Q4H PRN PRN Reason: NAUSEA AND VOMITING Last Admin: 07/23/20 07:36 Dose: 4 mg Documented by: Pantoprazole Sodium (Protonix) 40 mg PO DAILY [facility] Last Admin: 07/22/20 11:19 Dose: Not Given Documented by: Prednisone (Prednisone) 10 mg PO DAILY [facility] Last Admin: 07/22/20 11:20 Dose: Not Given Documented by: Fluticasone/Salmeterol (Advair Diskus 250-50) 1 puff INHALATION BID.RESPIRATORY [facility] Last Admin: 07/22/20 20:08 Dose: Not Given Documented by: Sevelamer Carbonate (Sevelamer 800 Mg Tablet) 400 mg PO TID [facility] Last Admin: 07/22/20 22:23 Dose: Not Given Documented by: Sodium Chloride ([place] Nasal [place]) 2 spray NASAL TID [facility] Last Admin: 07/22/20 22:23 Dose: Not Given Documented by: Vitals/I&O/Wt Last Vital Signs Temp 100.1 F H 07/24/20 07:45 Pulse 71 07/24/20 07:45 Resp 16 07/24/20 07:45 BP 165/86 07/24/20 07:45 Pulse Ox 97 07/24/20 07:45 07/23/20 07/24/20 07/24/20 22:59 06:59 14:59 Intake Total 0 / 100 120 / 120 Output Total 1850 / 3125 Balance 0 / -1175 -1850 / -3025 120 / 120 Weight last 48 hrs Weight 69.853 kg Weight 67.585 kg Physical Exam Narrative: EXAM NARRATIVE: Constitutional: Awake, comfortable, drowsy HEENT: Wet mucosa, no jvp, non icteric Lungs: Bilaterally clear without discernible wheeze, rales in all lung zones CVS: S1 S2, no murmurs Abdo: Soft, BS ok Ext 4: Minimal edema, peripheral perfusion with no cyanosis Neurological: Grossly non-focal Urinary Catheter Management^: Lund: Cath Placed During This Visit: no Reason for Continuing Indwelling Catheter: Acute Urinary Retention or Obstruction Data : 07/24/20 05:20 07/24/20 05:20 A&P Additional A&P Information 1. CKD 4 with progressive renal dysfunction - Known P-ANCA since 2003 - on Immunosuppressant therapy; recent decrease in dosing and I will hold Cellcept altogether at this time; cont Prednisone - He is responding to diuretics with good urine output, however, creatinine is starting to climb. - Not a candidate for dialysis in the future - We will hold diuretics at this time and repeat chest x-ray. - We will give intermittent diuretics as he needs them. - Avoid usual nephrotoxic agents - Strict ins and outs 2. Pneumonia, currently on combination antibiotics with Primaxin and Vancocin - Non rebreather 3. Chemistry looks well balanced Caesar Evangelista MD Nephrology [phone] Patient seen and examined via telemedicine, with the assistance of the bedside RN Attestations Medical Necessity Statement*: eval for BOOGIE Coding Level of Care Code Acute T[employer]or [employer] for Elizabeth Ruiz
--- NOTE | 2020-07-24 12:15 | PC.OT ---
OT tx attempted. Pt lying in bed with covers pulled up to chin. He opens eyes briefly and shakes his head no when therapist attempts to engage him in therapy. Therapist attempted several approaches for activities and participation but pt adamantly refuses. Therapist to attempt tx again at later time.
--- NOTE | 2020-07-24 12:55 | PC.NURSE ---
Dressing was soiled with blood. Dressing changed. Staff aware. Patient tolerated well.
--- NOTE | 2020-07-24 13:26 | P.PN_ITS ---
Subjective Subjective: Interval history: is requiring 100 % Oxygen through NRM to maintain saturation above 90 %. Has been drowsy,and has laboured breathing. Labs reviewed. Medications: Reviewed: Yes Medication Review Details: Current Medications Acetaminophen (Tylenol) 650 mg PO Q6H PRN PRN Reason: Mild/Mod Pain Or Temp >/= 101 Last Admin: 07/18/20 17:48 Dose: 650 mg Documented by: Hydrocodone Bitart/Acetaminophen ([place] 5-325 Mg) 1 tab PO Q6H PRN PRN Reason: MODERATE PAIN Last Admin: 07/16/20 16:02 Dose: 1 tab Documented by: Albuterol/Ipratropium (Duoneb) 3 ml INHALATION Q6H.RESPIRATORY [facility] Last Admin: 07/23/20 03:15 Dose: 3 ml Documented by: Amlodipine Besylate (Norvasc) 2.5 mg PO DAILY [facility] Last Admin: 07/22/20 11:18 Dose: Not Given Documented by: Apixaban (Apixaban 5 Mg Tablet) 2.5 mg PO BID [facility] Atorvastatin Calcium (Lipitor) 20 mg PO BEDTIME [facility] Last Admin: 07/22/20 22:22 Dose: Not Given Documented by: Benzonatate (Benzonatate 100 Mg Capsule) 100 mg PO TID PRN PRN Reason: COUGH Calcitriol (Calcitriol 0.25 Mcg Capsule) 0.25 mcg PO DAILY [facility] Last Admin: 07/22/20 11:19 Dose: Not Given Documented by: Clonidine HCl (Catapres) 0.1 mg PO BID [facility] Stop: 07/23/20 23:59 Last Admin: 07/22/20 17:48 Dose: 0.1 mg Documented by: Ergocalciferol (Vitamin D2) 50,000 unit PO Q7D [facility] Last Admin: 07/16/20 10:33 Dose: 50,000 unit Documented by: Furosemide (Furosemide 10 Mg/Ml Sdv 10ml) 80 mg IVP Q8H [facility] Last Admin: 07/23/20 07:37 Dose: 80 mg Documented by: Guaifenesin/Dextromethorphan (Guaifenesin-Dextromethorphan Udc 10 Ml) 5 ml PO Q4H PRN PRN Reason: COUGH Hydralazine HCl (Apresoline) 25 mg PO TID [facility] Last Admin: 07/22/20 22:22 Dose: Not Given Documented by: Hydralazine HCl (Hydralazine 20 Mg/Ml Inj 1 Ml) 10 mg IVP Q4H PRN PRN Reason: AGITATION Imipenem/Cilastatin Sodium 250 (mg/ Sodium Chloride) 100 mls @ 200 mls/hr IV Q12H [facility]; Protocol Last Admin: 07/22/20 22:59 Dose: 200 mls/hr Documented by: Vancomycin HCl 1,250 mg/ (Sodium Chloride) 250 mls @ 200 mls/hr IV Q48H [facility] Last Infusion: 07/22/20 15:54 Dose: Infused Documented by: Metoclopramide HCl (Reglan) 10 mg IVP ONCE PRN PRN Reason: N/V if zofran ineffective Metoprolol Tartrate (Lopressor) 25 mg PO [facility] Last Admin: 07/22/20 22:22 Dose: Not Given Documented by: Mirtazapine (Remeron) 30 mg PO BEDTIME [facility] Last Admin: 07/22/20 22:22 Dose: Not Given Documented by: Mycophenolate Mofetil (Cellcept) 500 mg PO TID [facility] Last Admin: 07/22/20 22:22 Dose: Not Given Documented by: Ondansetron HCl (Zofran) 4 mg IVP Q4H PRN PRN Reason: NAUSEA AND VOMITING Last Admin: 07/23/20 07:36 Dose: 4 mg Documented by: Pantoprazole Sodium (Protonix) 40 mg PO DAILY [facility] Last Admin: 07/22/20 11:19 Dose: Not Given Documented by: Prednisone (Prednisone) 10 mg PO DAILY [facility] Last Admin: 07/22/20 11:20 Dose: Not Given Documented by: Fluticasone/Salmeterol (Advair Diskus 250-50) 1 puff INHALATION BID.RESPIRATORY [facility] Last Admin: 07/22/20 20:08 Dose: Not Given Documented by: Sevelamer Carbonate (Sevelamer 800 Mg Tablet) 400 mg PO TID [facility] Last Admin: 07/22/20 22:23 Dose: Not Given Documented by: Sodium Chloride ([place] Nasal [place]) 2 spray NASAL TID [facility] Last Admin: 07/22/20 22:23 Dose: Not Given Documented by: Vitals/I&O/Wt Last Vital Signs Temp 99 F 07/24/20 12:00 Pulse 89 07/24/20 12:00 Resp 17 07/24/20 12:00 BP 156/82 07/24/20 12:00 Pulse Ox 97 07/24/20 12:00 07/23/20 07/24/20 07/24/20 22:59 06:59 14:59 Intake Total 0 / 100 120 / 120 Output Total 1850 / 3125 375 / 375 Balance 0 / -1175 -1850 / -3025 -255 / -255 Weight last 48 hrs Weight 69.853 kg Weight 67.585 kg Physical Exam HENMT: COMMON NORMALS: normocephalic and atraumatic HEAD & SCALP: normocephalic and atraumatic Resp: EFFORT & INSPECTION: Yes abnormal respiratory pattern, Yes respiratory distress and Yes labored AUSCULTATION: crackles and wheezes Cardio: COMMON NORMALS: regular rate, regular rhythm, S1 normal heart sound present, S2 normal heart sound present, No gallops present (Cardio), No murmurs present (Cardio), No rub (Cardio) and Peripheral pulses 2+ throughout RATE: regular rate RHYTHM: regular rhythm HEART SOUNDS: S1 normal heart sound present and S2 normal heart sound present PERIPHERAL PULSES: Peripheral pulses 2+ throughout GI: COMMON NORMALS: Normal to inspection, nondistended, normoactive bowel sounds present, Soft to palpation, non-tender, No hepatosplenomegaly present and no masses AUSCULTATION: Yes normoactive bowel sounds PALPATION: Yes Soft to palpation and Yes No hepatosplenomegaly present RECTAL EXAM: Yes deferred Extremity: COMMON NORMALS: no clubbing, cyanosis or edema and no pedal edema Urinary Catheter Management^: Lund: Cath Placed During This Visit: no Reason for Continuing Indwelling Catheter: Acute Urinary Retention or Obstruction Data : 07/24/20 05:20 07/24/20 05:20 A&P Assessment and plan (1) Heart failure: - Ac on Chronic HFpEF Exacerbation:: ( Echo (05/2020): EF=62%, mild concentric LVH, mild AR, trace MR, trace TR ). -Has diffuse crackles in both Lung pereira. -C.T Chest B/L PLeural effusion - I.V lasix 80 mg I.V Q12 H Daily was kept on hold today due to worsening kidney function. 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 Renal function unchanged -Nephrology consult appreciated -Had renal ultrasound done last month which showed markedly diminished velocitie s in the renal arteries which may be suggestive of proximal stenosis, unfortunately cannot do CTA due to renal function. Repeat US shows small volume kidneys bilaterally with increased echogenicity consistent with chronic medical renal disease -urine lytes, repeat UA noted, CPK wnl, elevated PTH consistent with secondary hyperparathyroidism; low vitamin D indicating vitamin D deficiency, on supple mentation -Follows up with nephrology (Dr. Earl Brown, ) at [facility] -off IVF; encourage oral hydration -has Lund catheter in place, continue to monitor Is & Os, assess daily for removal -on sodium bicarbonate drip -decreased BP meds to increase renal perfusion -cellcept resumed at 500 mg BID (07/16), steroids titrated -noted potential need for dialysis with progression of CKD Status: Chronic Qualifiers: Chronic kidney disease stage 3 subtype: unspecified whether 3a or 3b Qualified Code(s): N18.30 - Chronic kidney disease, stage 3 unspecified (4) Anemia: -With episodes of R sided epistaxis that required packing on 07/08 -Has known history of anemia and has had prior GI work-up which per patient was negative for any acute bleeding source -Prior admission last month for severe anemia with hemoglobin as low as 4 and requirement of transfusion of blood products -s/p 1 unit with improvement in Hg up to 10 (06/15) -continue to monitor H/H closely; s/p 1 unit of PRBCs (07/15) with noted stability thereafter -on IV iron, iron studies noted Status: Chronic Qualifiers: Anemia type: unspecified type Qualified Code(s): D64.9 - Anemia, unspecified (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 Would hold off on this for now until sure no need for placement of temporary dialysis catheter -Found to have right perineal vein thrombosis on venous duplex done on 05/16/20. -May not be a good candidate for long-term anticoagulation given underlying anemia with need for transfusion of blood products, recurrent falls Status: Acute Qualifiers: Affected thrombotic vein of extremity: unspecified vein of extremity Chronicity: chronic DVT location: lower extremity Laterality: unspecified laterality Qualified Code(s): I82.509 - Chronic embolism and thrombosis of unspecified deep veins of unspecified lower extremity Additional A&P Information -Treated for COVID-19 infection last month -Recurrent falls, generalized weakness, physical deconditioning, previously had rhabdomyolysis which resolved; PT evaluation appreciated, strict fall precautions -Known history of hypertension, on oral antihypertensives -GERD; on PPI and carafate -Hyperlipidemia; continue statin -Skin cancer affecting L ear; currently undergoing treatment -Very hard of hearing; hearing slightly better on the R -underlying cognitive impairment; reorient as needed -ST evaluation done due to noted difficulty swallowing; no overt aspiration noted, regular consistently recommended as well as crushing meds which patient h as declined, he wants to take his medications whole -cardiac diet as tolerated -GI ppx with PPI -DVT ppx with SCDs,Eliquis 2.5 mg q12 h daily -Dispo: [facility] [place] -Code status: DNR/DNI -guarded prognosis given advanced age, underlying comorbidities, issues with bleeding vs. 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
[2020-07-24] MEDS: vancomycin 1,250 MG/250 ML PIGGYBACK 200 MG IV (14:58)
[2020-07-24] MEDS: heparin 5,000 unit/mL INJ 1 mL 5000 UNIT SUBCUT (17:18)
[2020-07-24] MEDS: atorvastatin 40 mg Tablet 20 MG PO (21:40)
[2020-07-24] MEDS: mirtazapine 30 mg Tablet PO (21:40)
[2020-07-25] VITALS (11 sets, daily range): BP systolic 138–161; BP diastolic 82–94; PULSE 73–92; RESP 16–22; TEMP 35.6–37.3; O2SAT 91–99
[2020-07-25] MEDS: ipratropium-albuterol 3 mL Neb INHALATION ×4 (02:48→20:57)
[2020-07-25] MEDS: heparin 5,000 unit/mL INJ 1 mL 5000 UNIT SUBCUT ×2 (03:48→15:58)
[2020-07-25 06:54] LABS: Alanine Aminotransferase < 5 U/L (0-41); Albumin Level 2.6 g/dL (3.5-5.2); Alkaline Phosphatase 74 IU/L (40-130); Anion Gap 19.5 (5-19); Aspartate Amino Transferase 18 U/L (0-40); Calcium 7.9 mg/dL (8.5-10.5); Carbon Dioxide 23 mmol/L (22-29); Chloride 103 mmol/L (98-107); Globulin 2.4 g/dL (1.3-4.6); Glucose 100 mg/dL (65-115); Magnesium 1.8 mg/dL (1.7-2.3); Osmolality Calculated 318 mOsm/kg (285-295); Phosphorus 6.3 mg/dL (2.5-4.5); Potassium 4.5 mmol/L (3.5-5.1); Sodium 141 mmol/L (136-145); Total Bilirubin 0.2 mg/dL (0.15-1.2)
[2020-07-25 06:58] LABS: Blood Urea Nitrogen 84 mg/dL (8-23)
--- NOTE | 2020-07-25 07:54 | PM.PN ---
Subjective Subjective: Interval history: No new issues, he remains on nonrebreather. Attempt to transition to nasal cannula yesterday but became hypoxic. Diuretics held yesterday but he still has a robust urine output Minimal edema in the peripheray No uremic Sx Medications: Reviewed: Yes Medication Review Details: Current Medications Acetaminophen (Tylenol) 650 mg PO Q6H PRN PRN Reason: Mild/Mod Pain Or Temp >/= 101 Last Admin: 07/18/20 17:48 Dose: 650 mg Documented by: Hydrocodone Bitart/Acetaminophen ([place] 5-325 Mg) 1 tab PO Q6H PRN PRN Reason: MODERATE PAIN Last Admin: 07/16/20 16:02 Dose: 1 tab Documented by: Albuterol/Ipratropium (Duoneb) 3 ml INHALATION Q6H.RESPIRATORY [facility] Last Admin: 07/23/20 03:15 Dose: 3 ml Documented by: Amlodipine Besylate (Norvasc) 2.5 mg PO DAILY [facility] Last Admin: 07/22/20 11:18 Dose: Not Given Documented by: Apixaban (Apixaban 5 Mg Tablet) 2.5 mg PO BID [facility] Atorvastatin Calcium (Lipitor) 20 mg PO BEDTIME [facility] Last Admin: 07/22/20 22:22 Dose: Not Given Documented by: Benzonatate (Benzonatate 100 Mg Capsule) 100 mg PO TID PRN PRN Reason: COUGH Calcitriol (Calcitriol 0.25 Mcg Capsule) 0.25 mcg PO DAILY [facility] Last Admin: 07/22/20 11:19 Dose: Not Given Documented by: Clonidine HCl (Catapres) 0.1 mg PO BID [facility] Stop: 07/23/20 23:59 Last Admin: 07/22/20 17:48 Dose: 0.1 mg Documented by: Ergocalciferol (Vitamin D2) 50,000 unit PO Q7D [facility] Last Admin: 07/16/20 10:33 Dose: 50,000 unit Documented by: Furosemide (Furosemide 10 Mg/Ml Sdv 10ml) 80 mg IVP Q8H [facility] Last Admin: 07/23/20 07:37 Dose: 80 mg Documented by: Guaifenesin/Dextromethorphan (Guaifenesin-Dextromethorphan Udc 10 Ml) 5 ml PO Q4H PRN PRN Reason: COUGH Hydralazine HCl (Apresoline) 25 mg PO TID [facility] Last Admin: 07/22/20 22:22 Dose: Not Given Documented by: Hydralazine HCl (Hydralazine 20 Mg/Ml Inj 1 Ml) 10 mg IVP Q4H PRN PRN Reason: AGITATION Imipenem/Cilastatin Sodium 250 (mg/ Sodium Chloride) 100 mls @ 200 mls/hr IV Q12H [facility]; Protocol Last Admin: 07/22/20 22:59 Dose: 200 mls/hr Documented by: Vancomycin HCl 1,250 mg/ (Sodium Chloride) 250 mls @ 200 mls/hr IV Q48H [facility] Last Infusion: 07/22/20 15:54 Dose: Infused Documented by: Metoclopramide HCl (Reglan) 10 mg IVP ONCE PRN PRN Reason: N/V if zofran ineffective Metoprolol Tartrate (Lopressor) 25 mg PO [facility] Last Admin: 07/22/20 22:22 Dose: Not Given Documented by: Mirtazapine (Remeron) 30 mg PO BEDTIME [facility] Last Admin: 07/22/20 22:22 Dose: Not Given Documented by: Mycophenolate Mofetil (Cellcept) 500 mg PO TID [facility] Last Admin: 07/22/20 22:22 Dose: Not Given Documented by: Ondansetron HCl (Zofran) 4 mg IVP Q4H PRN PRN Reason: NAUSEA AND VOMITING Last Admin: 07/23/20 07:36 Dose: 4 mg Documented by: Pantoprazole Sodium (Protonix) 40 mg PO DAILY [facility] Last Admin: 07/22/20 11:19 Dose: Not Given Documented by: Prednisone (Prednisone) 10 mg PO DAILY [facility] Last Admin: 07/22/20 11:20 Dose: Not Given Documented by: Fluticasone/Salmeterol (Advair Diskus 250-50) 1 puff INHALATION BID.RESPIRATORY [facility] Last Admin: 07/22/20 20:08 Dose: Not Given Documented by: Sevelamer Carbonate (Sevelamer 800 Mg Tablet) 400 mg PO TID [facility] Last Admin: 07/22/20 22:23 Dose: Not Given Documented by: Sodium Chloride ([place] Nasal [place]) 2 spray NASAL TID [facility] Last Admin: 07/22/20 22:23 Dose: Not Given Documented by: Vitals/I&O/Wt Last Vital Signs Temp 96.0 F L 07/25/20 04:00 Pulse 88 07/25/20 04:00 Resp 18 07/25/20 04:00 BP 155/91 07/25/20 04:00 Pulse Ox 94 07/25/20 04:00 07/24/20 07/25/20 07/25/20 22:59 06:59 14:59 Intake Total 0 / 220 180 / 400 Output Total 850 / 1225 725 / 1950 Balance -850 / -1005 -545 / -1550 Weight last 48 hrs Weight 67.721 kg Weight 69.853 kg Physical Exam Narrative: EXAM NARRATIVE: Constitutional: Awake, comfortable, drowsy HEENT: Wet mucosa, no jvp, non icteric Lungs: Bilaterally clear without discernible wheeze, rales in all lung zones CVS: S1 S2, no murmurs Abdo: Soft, BS ok Ext 4: Minimal edema, peripheral perfusion with no cyanosis Neurological: Grossly non-focal Urinary Catheter Management^: Lund: Cath Placed During This Visit: no Reason for Continuing Indwelling Catheter: Acute Urinary Retention or Obstruction Data : 07/24/20 05:20 07/25/20 05:29 A&P Additional A&P Information 1. CKD 4 with progressive renal dysfunction - Creatinine slightly improved since yesterday; reassuring - Known P-ANCA since 2003 - on Immunosuppressant therapy; recent decrease in dosing and I will hold Cellcept altogether at this time; cont Prednisone - Good urine output - Not a candidate for dialysis in the future - Repeat chest x-ray. - We will give intermittent diuretics as he needs them. - Avoid usual nephrotoxic agents - Strict ins and outs 2. Pneumonia, currently on combination antibiotics with Primaxin and Vancocin - Nonrebreather - titrate down as he tolerates 3. Chemistry looks well balanced Caesar Evangelista MD Nephrology [phone] Patient seen and examined via telemedicine, with the assistance of the bedside RN Attestations Medical Necessity Statement*: Eval for BOOGIE Coding Level of Care Code Acute [employer] for Samanthag Joseph
[2020-07-25] MEDS: sevelamer 800 mg Tablet 400 MG PO ×3 (09:09→22:40)
[2020-07-25] MEDS: calcitriol 0.25 mcg Capsule PO (09:10)
[2020-07-25] MEDS: pantoprazole DR 40 mg Tablet PO (09:10)
[2020-07-25] MEDS: predniSONE 10 mg Tablet PO (09:10)
[2020-07-25] MEDS: saline nasal spray 44mL Btl 2 SPRAY NASAL ×2 (09:11→15:58)
[2020-07-25] MEDS: amlodipine 10 mg Tablet 2.5 MG PO (09:21)
--- NOTE | 2020-07-25 10:03 | PC.SOCIAL ---
IMM Update Pg. 2 of IMM Updated and reviewed with patient's , Rosemary over the phone. Verbalized understanding. She asked to have nursing staff call her son, Jake, with an update on patient. I will request that they do this.
--- NOTE | 2020-07-25 11:39 | PM.PN ---
Subjective Subjective: Interval history: Mr. Funk is much more awake and alert today. Has eaten 20% of his meal. Has remained afebrile: Supplemental oxygen requirement is still high. Other vitals and labs have been reviewed. Medications: Reviewed: Yes Medication Review Details: Current Medications Acetaminophen (Tylenol) 650 mg PO Q6H PRN PRN Reason: Mild/Mod Pain Or Temp >/= 101 Last Admin: 07/18/20 17:48 Dose: 650 mg Documented by: Hydrocodone Bitart/Acetaminophen ([place] 5-325 Mg) 1 tab PO Q6H PRN PRN Reason: MODERATE PAIN Last Admin: 07/16/20 16:02 Dose: 1 tab Documented by: Albuterol/Ipratropium (Duoneb) 3 ml INHALATION Q6H.RESPIRATORY [place]OSS[place] Last Admin: 07/23/20 03:15 Dose: 3 ml Documented by: Amlodipine Besylate (Norvasc) 2.5 mg PO DAILY [facility] Last Admin: 07/22/20 11:18 Dose: Not Given Documented by: Apixaban (Apixaban 5 Mg Tablet) 2.5 mg PO BID [facility] Atorvastatin Calcium (Lipitor) 20 mg PO BEDTIME [facility] Last Admin: 07/22/20 22:22 Dose: Not Given Documented by: Benzonatate (Benzonatate 100 Mg Capsule) 100 mg PO TID PRN PRN Reason: COUGH Calcitriol (Calcitriol 0.25 Mcg Capsule) 0.25 mcg PO DAILY [facility] Last Admin: 07/22/20 11:19 Dose: Not Given Documented by: Clonidine HCl (Catapres) 0.1 mg PO BID [facility] Stop: 07/23/20 23:59 Last Admin: 07/22/20 17:48 Dose: 0.1 mg Documented by: Ergocalciferol (Vitamin D2) 50,000 unit PO Q7D [facility] Last Admin: 07/16/20 10:33 Dose: 50,000 unit Documented by: Furosemide (Furosemide 10 Mg/Ml Sdv 10ml) 80 mg IVP Q8H [facility] Last Admin: 07/23/20 07:37 Dose: 80 mg Documented by: Guaifenesin/Dextromethorphan (Guaifenesin-Dextromethorphan Udc 10 Ml) 5 ml PO Q4H PRN PRN Reason: COUGH Hydralazine HCl (Apresoline) 25 mg PO TID [facility] Last Admin: 07/22/20 22:22 Dose: Not Given Documented by: Hydralazine HCl (Hydralazine 20 Mg/Ml Inj 1 Ml) 10 mg IVP Q4H PRN PRN Reason: AGITATION Imipenem/Cilastatin Sodium 250 (mg/ Sodium Chloride) 100 mls @ 200 mls/hr IV Q12H [facility]; Protocol Last Admin: 07/22/20 22:59 Dose: 200 mls/hr Documented by: Vancomycin HCl 1,250 mg/ (Sodium Chloride) 250 mls @ 200 mls/hr IV Q48H [facility] Last Infusion: 07/22/20 15:54 Dose: Infused Documented by: Metoclopramide HCl (Reglan) 10 mg IVP ONCE PRN PRN Reason: N/V if zofran ineffective Metoprolol Tartrate (Lopressor) 25 mg PO , [facility] Last Admin: 07/22/20 22:22 Dose: Not Given Documented by: Mirtazapine (Remeron) 30 mg PO BEDTIME [facility] Last Admin: 07/22/20 22:22 Dose: Not Given Documented by: Mycophenolate Mofetil (Cellcept) 500 mg PO TID [facility] Last Admin: 07/22/20 22:22 Dose: Not Given Documented by: Ondansetron HCl (Zofran) 4 mg IVP Q4H PRN PRN Reason: NAUSEA AND VOMITING Last Admin: 07/23/20 07:36 Dose: 4 mg Documented by: Pantoprazole Sodium (Protonix) 40 mg PO DAILY [facility] Last Admin: 07/22/20 11:19 Dose: Not Given Documented by: Prednisone (Prednisone) 10 mg PO DAILY [facility] Last Admin: 07/22/20 11:20 Dose: Not Given Documented by: Fluticasone/Salmeterol (Advair Diskus 250-50) 1 puff INHALATION BID.RESPIRATORY [facility] Last Admin: 07/22/20 20:08 Dose: Not Given Documented by: Sevelamer Carbonate (Sevelamer 800 Mg Tablet) 400 mg PO TID [facility] Last Admin: 07/22/20 22:23 Dose: Not Given Documented by: Sodium Chloride ([place] Nasal [place]) 2 spray NASAL TID [facility] Last Admin: 07/22/20 22:23 Dose: Not Given Documented by: Vitals/I&O/Wt Last Vital Signs Temp 98.2 F 07/25/20 08:00 Pulse 80 07/25/20 08:18 Resp 18 07/25/20 08:18 BP 161/94 07/25/20 08:00 Pulse Ox 96 07/25/20 08:18 07/24/20 07/25/20 07/25/20 22:59 06:59 14:59 Intake Total 250 / 470 280 / 750 280 / 280 Output Total 850 / 1225 725 / 1950 350 / 350 Balance -600 / -755 -445 / -1200 -70 / -70 Weight last 48 hrs Weight 67.721 kg Weight 69.853 kg Physical Exam HENMT: COMMON NORMALS: normocephalic and atraumatic HEAD & SCALP: normocephalic and atraumatic Resp: EFFORT & INSPECTION: Yes abnormal respiratory pattern, Yes tachypneic and Yes respiratory distress AUSCULTATION: diminished lung sounds OTHER: B/L diffuse Crackles present in both lungs pereira. Cardio: COMMON NORMALS: regular rate, regular rhythm, S1 normal heart sound present, S2 normal heart sound present, No gallops present (Cardio), No murmurs present (Cardio), No rub (Cardio) and Peripheral pulses 2+ throughout RATE: regular rate RHYTHM: regular rhythm HEART SOUNDS: S1 normal heart sound present and S2 normal heart sound present PERIPHERAL PULSES: Peripheral pulses 2+ throughout GI: COMMON NORMALS: Normal to inspection, nondistended, normoactive bowel sounds present, Soft to palpation, non-tender, No hepatosplenomegaly present and no masses AUSCULTATION: Yes normoactive bowel sounds PALPATION: Yes Soft to palpation and Yes No hepatosplenomegaly present RECTAL EXAM: Yes deferred Extremity: COMMON NORMALS: no clubbing, cyanosis or edema and no pedal edema Urinary Catheter Management^: Lund: Cath Placed During This Visit: no Reason for Continuing Indwelling Catheter: Acute Urinary Retention or Obstruction Data : 07/24/20 05:20 07/25/20 05:29 A&P Assessment and plan (1) Respiratory failure: Acute hypoxic respiratory failure secondary to pneumonia as well as Ac on Chronic HFpEF Exacerbation. Patient is on vancomycin and imipenem. He is also receiving IV diuresis. Status: Acute (2) Heart failure: - Ac on Chronic HFpEF Exacerbation:: ( Echo (05/2020): EF=62%, mild concentric LVH, mild AR, trace MR, trace TR ). -Has diffuse crackles in both Lung pereira. -C.T Chest B/L PLeural effusion - I.V lasix 80 mg I.V Q12 H Daily was kept on hold today due to worsening kidney function. 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 Renal function unchanged -Nephrology consult appreciated -Had renal ultrasound done last month which showed markedly diminished velocities in the renal arteries which may be suggestive of proximal stenosis, unfortunately cannot do CTA due to renal function. Repeat US shows small volume kidneys bilaterally with increased echogenicity consistent with chronic medical renal disease -urine lytes, repeat UA noted, CPK wnl, elevated PTH consistent with secondary hyperparathyroidism; low vitamin D indicating vitamin D deficiency, on supplementation -Follows up with nephrology (Dr. Earl Brown, ) at [facility] -off IVF; encourage oral hydration -has Lund catheter in place, continue to monitor Is & Os, assess daily for removal -on sodium bicarbonate drip -decreased BP meds to increase renal perfusion -cellcept resumed at 500 mg BID (07/16), steroids titrated -noted potential need for dialysis with progression of CKD Status: Chronic Qualifiers: Chronic kidney disease stage 3 subtype: unspecified whether 3a or 3b Qualified Code(s): N18.30 - Chronic kidney disease, stage 3 unspecified (5) Anemia: -With episodes of R sided epistaxis that required packing on 07/08 -Has known history of anemia and has had prior GI work-up which per patient was negative for any acute bleeding source -Prior admission last month for severe anemia with hemoglobin as low as 4 and requirement of transfusion of blood products -s/p 1 unit with improvement in Hg up to 10 (06/15) -continue to monitor H/H closely; s/p 1 unit of PRBCs (07/15) with noted stability thereafter -on IV iron, iron studies noted Status: Chronic Qualifiers: Anemia type: unspecified type Qualified Code(s): D64.9 - Anemia, unspecified (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 -Currently on heparin 5000 subcu every 12 hours. -Found to have right perineal vein thrombosis on venous duplex done on 05/16/20. Status: Acute Qualifiers: Affected thrombotic vein of extremity: unspecified vein of extremity Chronicity: chronic DVT location: lower extremity Laterality: unspecified laterality Qualified Code(s): I82.509 - Chronic embolism and thrombosis of unspecified deep veins of unspecified lower extremity Additional A&P Information -Treated for COVID-19 infection last month -Recurrent falls, generalized weakness, physical deconditioning, previously had rhabdomyolysis which resolved; PT evaluation appreciated, strict fall precautions -Known history of hypertension, on oral antihypertensives -GERD; on PPI and carafate -Hyperlipidemia; continue statin -Skin cancer affecting L ear; currently undergoing treatment -Very hard of hearing; hearing slightly better on the R -underlying cognitive impairment; reorient as needed -ST evaluation done due to noted difficulty swallowing; no overt aspiration noted, regular consistently recommended as well as crushing meds which patient has declined, he wants to take his medications whole -cardiac diet as tolerated -GI ppx with PPI -DVT ppx : On heparin -Dispo: [facility] -Code status: DNR/DNI -guarded prognosis due to multiple comorbid condition and impending renal failure. Attestations Medical Necessity Statement*: Patient needs to be in hospital for management of renal failure, hypoxic respiratory failure, pneumonia, need for IV antibiotics and IV diuretic. Coding Level of Care Code Acute Gameplay Engineer for [facility] Diagnoses Respiratory failure J96.90 Heart failure I50.9 Pneumonia J18.9 Chronic kidney disease, stage III (moderate) N18.30 Chronic kidney disease stage 3 subtype: unspecified whether 3a or 3b Anemia D64.9 Anemia type: unspecified type Polyarteritis nodosa M30.0 DVT (deep venous thrombosis) I82.509 Affected thrombotic vein of extremity: unspecified vein of extremity Chronicity: chronic DVT location: lower extremity Laterality: unspecified laterality
[2020-07-25] MEDS: atorvastatin 40 mg Tablet 20 MG PO (22:38)
[2020-07-25] MEDS: mirtazapine 30 mg Tablet PO (22:38)
[2020-07-25] MEDS: guaiFENesin-dextromethorphan UDC 10 mL 5 ML PO (22:41)
[2020-07-25] MEDS: benzonatate 100 mg Capsule PO (22:41)
[2020-07-26] VITALS (16 sets, daily range): BP systolic 151–186; BP diastolic 83–110; PULSE 85–116; RESP 16–24; TEMP 36.8–38.6; O2SAT 87–97
[2020-07-26] MEDS: ipratropium-albuterol 3 mL Neb INHALATION ×4 (03:33→19:59)
[2020-07-26] MEDS: heparin 5,000 unit/mL INJ 1 mL 5000 UNIT SUBCUT ×2 (04:57→15:01)
[2020-07-26 05:35] LABS: Eosinophils % 0.2 %; Hemoglobin 10.4 g/dL (11.7-16.6); Lymphocytes # 0.3 10^3/uL (0.8-4.8); Lymphocytes % 3.3 %; Mean Corpuscular HGB Conc 30.6 g/dL (30.0-36.0); Mean Corpuscular Hemoglobin 28.7 pg (28.0-34.0); Mean Corpuscular Volume 93.7 fL (80-94); Mean Platelet Volume 10.4 fL (7.4-10.4); Monocytes # 0.1 10^3/uL (0.2-0.9); Monocytes % 1.3 %; Neutrophils # 8.69 10^3/uL (1.8-7.7); Neutrophils % 94.7 %; Nucleated Red Blood Cells % 0 %; Platelet Count 158 10^3/cmm (130-400); Red Blood Count 3.63 10^6/uL (4.1-5.3); Red Cell Distribution Width 15.6 % (12.1-15.1); White Blood Count 9.2 10^3/uL (4.0-10.0)
[2020-07-26 05:53] LABS: Alanine Aminotransferase < 5 U/L (0-41); Albumin Level 2.7 g/dL (3.5-5.2); Alkaline Phosphatase 78 IU/L (40-130); Anion Gap 18.7 (5-19); Aspartate Amino Transferase 18 U/L (0-40); Carbon Dioxide 23 mmol/L (22-29); Chloride 102 mmol/L (98-107); Globulin 2.5 g/dL (1.3-4.6); Glucose 96 mg/dL (65-115); Osmolality Calculated 314 mOsm/kg (285-295); Potassium 4.7 mmol/L (3.5-5.1); Sodium 139 mmol/L (136-145); Total Bilirubin 0.2 mg/dL (0.15-1.2); Total Protein 5.2 g/dL (6.6-8.7)
[2020-07-26 06:04] LABS: Blood Urea Nitrogen 85 mg/dL (8-23)
--- NOTE | 2020-07-26 07:40 | PC.NURSE ---
I reported the low 02 level of 89%and the high bp of 151/96
[2020-07-26] MEDS: hyDRALAzine 20 mg/mL INJ 1 mL 10 MG IVP (08:55)
--- NOTE | 2020-07-26 09:15 | PM.PN ---
Subjective Subjective: Interval history: weak, lethargic, sob on o2 Medications: Reviewed: Yes Medication Review Details: Current Medications Acetaminophen (Tylenol) 650 mg PO Q6H PRN PRN Reason: Mild/Mod Pain Or Temp >/= 101 Last Admin: 07/18/20 17:48 Dose: 650 mg Documented by: Albuterol/Ipratropium (Duoneb) 3 ml INHALATION Q6H.RESPIRATORY [facility] Last Admin: 07/26/20 08:32 Dose: 3 ml Documented by: Amlodipine Besylate (Norvasc) 2.5 mg PO DAILY [facility] Last Admin: 07/26/20 09:08 Dose: Not Given Documented by: Atorvastatin Calcium (Lipitor) 20 mg PO BEDTIME [facility] Last Admin: 07/25/20 22:38 Dose: 20 mg Documented by: Benzonatate (Benzonatate 100 Mg Capsule) 100 mg PO TID PRN PRN Reason: COUGH Last Admin: 07/25/20 22:41 Dose: 100 mg Documented by: Calcitriol (Calcitriol 0.25 Mcg Capsule) 0.25 mcg PO DAILY [facility] Last Admin: 07/26/20 09:08 Dose: Not Given Documented by: Ergocalciferol (Vitamin D2) 50,000 unit PO Q7D [facility] Last Admin: 07/23/20 11:50 Dose: Not Given Documented by: Guaifenesin/Dextromethorphan (Guaifenesin-Dextromethorphan Udc 10 Ml) 5 ml PO Q4H PRN PRN Reason: COUGH Guaifenesin/Dextromethorphan (Guaifenesin-Dextromethorphan Udc 10 Ml) 5 ml PO BID [facility] Last Admin: 07/26/20 09:08 Dose: Not Given Documented by: Heparin Sodium (Beef Lung) (Heparin 5,000 Unit/Ml Inj 1 Ml) 5,000 unit SUBCUT Q12H [facility] Last Admin: 07/26/20 04:57 Dose: 5,000 unit Documented by: Hydralazine HCl (Hydralazine 20 Mg/Ml Inj 1 Ml) 10 mg IVP Q4H PRN PRN Reason: Blood pressure over 140 Last Admin: 07/26/20 08:55 Dose: 10 mg Documented by: Imipenem/Cilastatin Sodium 250 (mg/ Sodium Chloride) 100 mls @ 200 mls/hr IV Q12H [facility]; Protocol Last Admin: 07/25/20 23:14 Dose: 200 mls/hr Documented by: Vancomycin/PEG/[place]/Lysine/Water (Vancocin) 1,250 mg in 250 mls @ 200 mls/hr IV Q48H [facility] Last Infusion: 07/24/20 16:15 Dose: Infused Documented by: Labetalol HCl (Labetalol 5 Mg/Ml Sdv 20ml) 10 mg IVP PRN PRN PRN Reason: SBP GREATER THEN 160 Metoclopramide HCl (Reglan) 10 mg IVP ONCE PRN PRN Reason: N/V if zofran ineffective Mirtazapine (Remeron) 30 mg PO BEDTIME [facility] Last Admin: 07/25/20 22:38 Dose: 30 mg Documented by: Ondansetron HCl (Zofran) 4 mg IVP Q4H PRN PRN Reason: NAUSEA AND VOMITING Last Admin: 07/23/20 15:08 Dose: 4 mg Documented by: Pantoprazole Sodium (Protonix) 40 mg PO DAILY [facility] Last Admin: 07/26/20 09:08 Dose: Not Given Documented by: Prednisone (Prednisone 20 Mg Tablet) 10 mg PO DAILY [facility] Last Admin: 07/26/20 09:08 Dose: Not Given Documented by: Fluticasone/Salmeterol (Advair Diskus 250-50) 1 puff INHALATION BID.RESPIRATORY [facility] Last Admin: 07/26/20 08:33 Dose: 1 puff Documented by: Sevelamer Carbonate (Sevelamer 800 Mg Tablet) 400 mg PO TID [facility] Last Admin: 07/26/20 09:08 Dose: Not Given Documented by: Sodium Chloride ([place] Nasal [place]) 2 spray NASAL TID [facility] Last Admin: 07/26/20 09:08 Dose: Not Given Documented by: Vitals/I&O/Wt Last Vital Signs Temp 99.5 F 07/26/20 07:40 Pulse 103 H 07/26/20 08:37 Resp 20 H 07/26/20 08:34 BP 151/96 07/26/20 07:40 Pulse Ox 92 07/26/20 08:34 07/25/20 07/26/20 07/26/20 22:59 06:59 14:59 Intake Total 240 / 640 240 / 880 Output Total 825 / 1175 550 / 550 Balance -585 / -535 240 / -295 -550 / -550 Weight last 48 hrs Weight 64.41 kg Weight 67.721 kg Physical Exam Narrative: EXAM NARRATIVE: elderly frail man SOB in bed, using o2 vs noted. using bipap heent- nc/at, eomi skin rash stable neck supple lungs ronchi b/l heart reg, no rub abd soft, nt, nd, +BS ext + leg edema b/l neuro- awake,confused, weak + mueller catheter Urinary Catheter Management^: Mueller: Cath Placed During This Visit: no Reason for Continuing Indwelling Catheter: Acute Urinary Retention or Obstruction Data : 07/26/20 05:07 07/26/20 05:07 A&P Additional A&P Information 1. CKD 4 with progressive renal dysfunction - Creatinine slightly improved since yesterday; reassuring - Known P-ANCA since 2003 - agree w/ holding Immunosuppressant therapy - Good urine output -remains SOB -i am willing to attempt HD. Till now family does not want HD. - I spoke w/ pts son, Jake Alegre- [phone]- we discussed risks and benefits of dialysis. Family will consider options and let me know. - diurese as needed for effusions and abx for PNA - Avoid usual nephrotoxic agents - Strict ins and outs 2. Pneumonia, currently on combination antibiotics with Primaxin and Vancocin - renal dose abx 3. s/p abx for UTI 4. HTN- monitor w/ diuresis 5. anemia- hgb above 10. s/p iv iron normal kappa/ lambda ratio 6. s/p ORIF femur 7. pt not eating well, malnourished 8. phos binder if possible Long discussion w/ Dr. Peguero and pts son, Jake. If pt does not attempt dialysis, would consider comfort care. Patient seen and examined via telemedicine, with the assistance of the bedside RN Attestations Medical Necessity Statement*: pna, resp distress, rosemary Time Spent in Patient Care: 16 - 35 minutes Coding Level of Care Code Acute Dianeticist for Elizabeth Ruiz
--- NOTE | 2020-07-26 11:16 | P.PN_ITS ---
Subjective Subjective: Interval history: Has signs of uremic encephalopathy,this am as he was drowsy and lethargic, still requiring high supplemental oxygen to maintain saturation, good urine output. Has remained afebrile. Other vitals and labs have been reviewed Medications: Reviewed: Yes Medication Review Details: Current Medications Acetaminophen (Tylenol) 650 mg PO Q6H PRN PRN Reason: Mild/Mod Pain Or Temp >/= 101 Last Admin: 07/18/20 17:48 Dose: 650 mg Documented by: Albuterol/Ipratropium (Duoneb) 3 ml INHALATION Q6H.RESPIRATORY BLOSSOM Last Admin: 07/26/20 08:32 Dose: 3 ml Documented by: Amlodipine Besylate (Norvasc) 2.5 mg PO DAILY [facility] Last Admin: 07/26/20 09:08 Dose: Not Given Documented by: Atorvastatin Calcium (Lipitor) 20 mg PO BEDTIME [facility] Last Admin: 07/25/20 22:38 Dose: 20 mg Documented by: Benzonatate (Benzonatate 100 Mg Capsule) 100 mg PO TID PRN PRN Reason: COUGH Last Admin: 07/25/20 22:41 Dose: 100 mg Documented by: Calcitriol (Calcitriol 0.25 Mcg Capsule) 0.25 mcg PO DAILY [facility] Last Admin: 07/26/20 09:08 Dose: Not Given Documented by: Ergocalciferol (Vitamin D2) 50,000 unit PO Q7D [facility] Last Admin: 07/23/20 11:50 Dose: Not Given Documented by: Guaifenesin/Dextromethorphan (Guaifenesin-Dextromethorphan Udc 10 Ml) 5 ml PO Q4H PRN PRN Reason: COUGH Guaifenesin/Dextromethorphan (Guaifenesin-Dextromethorphan Udc 10 Ml) 5 ml PO BID [facility] Last Admin: 07/26/20 09:08 Dose: Not Given Documented by: Heparin Sodium (Beef Lung) (Heparin 5,000 Unit/Ml Inj 1 Ml) 5,000 unit SUBCUT Q12H [facility] Last Admin: 07/26/20 04:57 Dose: 5,000 unit Documented by: Hydralazine HCl (Hydralazine 20 Mg/Ml Inj 1 Ml) 10 mg IVP Q4H PRN PRN Reason: Blood pressure over 140 Last Admin: 07/26/20 08:55 Dose: 10 mg Documented by: Imipenem/Cilastatin Sodium 250 (mg/ Sodium Chloride) 100 mls @ 200 mls/hr IV Q12H [facility]; Protocol Last Admin: 07/25/20 23:14 Dose: 200 mls/hr Documented by: Vancomycin/PEG/NADA/Lysine/Water (Vancocin) 1,250 mg in 250 mls @ 200 mls/hr IV Q48H [facility] Last Infusion: 07/24/20 16:15 Dose: Infused Documented by: Labetalol HCl (Labetalol 5 Mg/Ml Sdv 20ml) 10 mg IVP PRN PRN PRN Reason: SBP GREATER THEN 160 Metoclopramide HCl (Reglan) 10 mg IVP ONCE PRN PRN Reason: N/V if zofran ineffective Mirtazapine (Remeron) 30 mg PO BEDTIME [facility] Last Admin: 07/25/20 22:38 Dose: 30 mg Documented by: Ondansetron HCl (Zofran) 4 mg IVP Q4H PRN PRN Reason: NAUSEA AND VOMITING Last Admin: 07/23/20 15:08 Dose: 4 mg Documented by: Pantoprazole Sodium (Protonix) 40 mg PO DAILY [facility] Last Admin: 07/26/20 09:08 Dose: Not Given Documented by: Prednisone (Prednisone 20 Mg Tablet) 10 mg PO DAILY [facility] Last Admin: 07/26/20 09:08 Dose: Not Given Documented by: Fluticasone/Salmeterol (Advair Diskus 250-50) 1 puff INHALATION BID.RESPIRATORY BLOSSOM Last Admin: 07/26/20 08:33 Dose: 1 puff Documented by: Sevelamer Carbonate (Sevelamer 800 Mg Tablet) 400 mg PO TID [facility]OSS[facility] Last Admin: 07/26/20 09:08 Dose: Not Given Documented by: Sodium Chloride ([place] Nasal [place]) 2 spray NASAL TID [facility] Last Admin: 07/26/20 09:08 Dose: Not Given Documented by: Vitals/I&O/Wt Last Vital Signs Temp 99.5 F 07/26/20 07:40 Pulse 103 H 07/26/20 08:37 Resp 20 H 07/26/20 08:34 BP 151/96 07/26/20 07:40 Pulse Ox 92 07/26/20 08:34 07/25/20 07/26/20 07/26/20 22:59 06:59 14:59 Intake Total 240 / 640 340 / 980 Output Total 825 / 1175 550 / 550 Balance -585 / -535 340 / -195 -550 / -550 Weight last 48 hrs Weight 64.41 kg Weight 67.721 kg Physical Exam Const: COMMON NORMALS: patient oriented x3 HENMT: COMMON NORMALS: normocephalic, atraumatic and external ears normal HEAD & SCALP: normocephalic and atraumatic EXTERNAL EAR: Yes external ears normal Eye: COMMON NORMALS: no scleral icterus GENERAL EYE: appearance normal, both eyes and all related structures Chest: COMMONS NORMALS: normal inspection of the chest and normal palpation of entire chest wall CHEST: Yes Symmetrical chest wall rise Resp: COMMON NORMALS: normal respiratory effort, No retractions and No use of accessory muscles EFFORT & INSPECTION: Yes symmetric chest movement, Yes labored and Yes uses accessory muscles AUSCULTATION: crackles and diminished lung sounds OTHER: B/L diffuse Crackles present in both lungs pereira. Cardio: COMMON NORMALS: regular rate, regular rhythm, S1 normal heart sound present, S2 normal heart sound present, No gallops present (Cardio), No murmurs present (Cardio), No rub (Cardio) and Peripheral pulses 2+ throughout RATE: regular rate RHYTHM: regular rhythm HEART SOUNDS: S1 normal heart sound present and S2 normal heart sound present PERIPHERAL PULSES: Peripheral pulses 2+ throughout GI: COMMON NORMALS: Normal to inspection, nondistended, normoactive bowel sounds present, Soft to palpation, non-tender, No hepatosplenomegaly present and no masses AUSCULTATION: Yes normoactive bowel sounds PALPATION: Yes Soft to palpation and Yes No hepatosplenomegaly present RECTAL EXAM: Yes deferred Extremity: COMMON NORMALS: no clubbing, cyanosis or edema and no pedal edema Neuro: COMMON NORMALS: patient oriented x3 Urinary Catheter Management^: Lund: Cath Placed During This Visit: no Reason for Continuing Indwelling Catheter: Acute Urinary Retention or Obstruction Data : 07/26/20 05:07 07/26/20 05:07 A&P Assessment and plan (1) Uremic encephalopathy: uremic encephalopathy,this am as he was drowsy lethargic, intermittent confusion . High BUN Plan: Request family to consider H.D Status: Acute (2) Respiratory failure: Acute hypoxic respiratory failure secondary to pneumonia as well as Ac on Chronic HFpEF Exacerbation. Patient is on vancomycin and imipenem. He is also receiving IV diuresis. Status: Acute (3) Heart failure: - Ac on Chronic HFpEF Exacerbation:: ( Echo (05/2020): EF=62%, mild concentric LVH, mild AR, trace MR, trace TR ). -Has diffuse crackles in both Lung pereira. -C.T Chest B/L PLeural effusion - I.V lasix 80 mg I.V Q12 H Daily was kept on hold today due to worsening kidney function. 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 Renal function unchanged -Nephrology consult appreciated -Had renal ultrasound done last month which showed markedly diminished velocities in the renal arteries which may be suggestive of proximal stenosis, unfortunately cannot do CTA due to renal function. Repeat US shows small volume kidneys bilaterally with increased echogenicity consistent with chronic medical renal disease -urine lytes, repeat UA noted, CPK wnl, elevated PTH consistent with secondary hyperparathyroidism; low vitamin D indicating vitamin D deficiency, on supplementation -Follows up with nephrology (Dr. Earl Brown, ) at [facility] -off IVF; encourage oral hydration -has Lund catheter in place, continue to monitor Is & Os, assess daily for removal -on sodium bicarbonate drip -decreased BP meds to increase renal perfusion -cellcept resumed at 500 mg BID (07/16), steroids titrated -noted potential need for dialysis with progression of CKD Status: Chronic Qualifiers: Chronic kidney disease stage 3 subtype: unspecified whether 3a or 3b Qualified Code(s): N18.30 - Chronic kidney disease, stage 3 unspecified (6) Anemia: -With episodes of R sided epistaxis that required packing on 07/08 -Has known history of anemia and has had prior GI work-up which per patient was negative for any acute bleeding source -Prior admission last month for severe anemia with hemoglobin as low as 4 and requirement of transfusion of blood products -s/p 1 unit with improvement in Hg up to 10 (06/15) -continue to monitor H/H closely; s/p 1 unit of PRBCs (07/15) with noted stability thereafter -on IV iron, iron studies noted Status: Chronic Qualifiers: Anemia type: unspecified type Qualified Code(s): D64.9 - Anemia, unspecified (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 -Currently on heparin 5000 subcu every 12 hours. -Found to have right perineal vein thrombosis on venous duplex done on 05/16/20. Status: Acute Qualifiers: Affected thrombotic vein of extremity: unspecified vein of extremity Chronicity: chronic DVT location: lower extremity Laterality: unspecified laterality Qualified Code(s): I82.509 - Chronic embolism and thrombosis of unspecified deep veins of unspecified lower extremity Additional A&P Information -Treated for COVID-19 infection last month -Recurrent falls, generalized weakness, physical deconditioning, previously had rhabdomyolysis which resolved; PT evaluation appreciated, strict fall precautions -Known history of hypertension, on oral antihypertensives -GERD; on PPI and carafate -Hyperlipidemia; continue statin -Skin cancer affecting L ear; currently undergoing treatment -Very hard of hearing; hearing slightly better on the R -underlying cognitive impairment; reorient as needed -ST evaluation done due to noted difficulty swallowing; no overt aspiration noted, regular consistently recommended as well as crushing meds which patient has declined, he wants to take his medications whole -cardiac diet as tolerated -GI ppx with PPI -DVT ppx : On heparin -Dispo: [facility] -Code status: DNR/DNI -guarded prognosis due to multiple comorbid condition and impending renal failure. 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
[2020-07-26] MEDS: vancomycin 1,250 MG/250 ML PIGGYBACK 200 MG IV (13:25)
[2020-07-26] MEDS: guaiFENesin-dextromethorphan UDC 10 mL 5 ML PO (17:11)
[2020-07-26] MEDS: acetaminophen 325 mg Tablet 650 MG PO (20:51)
[2020-07-27] VITALS (10 sets, daily range): BP systolic 84–168; BP diastolic 67–103; PULSE 83–107; RESP 16–23; TEMP 36.8–38.6; O2SAT 92–97
[2020-07-27] MEDS: ipratropium-albuterol 3 mL Neb INHALATION ×4 (03:26→20:29)
[2020-07-27 05:52] LABS: Basophils % 0.1 %; Eosinophils % 0.6 %; Hematocrit 33.9 % (42.0-52.0); Hemoglobin 10.2 g/dL (11.7-16.6); Lymphocytes # 0.2 10^3/uL (0.8-4.8); Lymphocytes % 2.9 %; Mean Corpuscular HGB Conc 30.1 g/dL (30.0-36.0); Mean Corpuscular Hemoglobin 28.2 pg (28.0-34.0); Mean Corpuscular Volume 93.6 fL (80-94); Mean Platelet Volume 10.3 fL (7.4-10.4); Monocytes # 0.1 10^3/uL (0.2-0.9); Monocytes % 1.3 %; Neutrophils # 6.58 10^3/uL (1.8-7.7); Neutrophils % 94.7 %; Nucleated Red Blood Cells % 0 %; Platelet Count 147 10^3/cmm (130-400); Red Blood Count 3.62 10^6/uL (4.1-5.3); Red Cell Distribution Width 15.7 % (12.1-15.1)
[2020-07-27 06:40] LABS: Alanine Aminotransferase < 5 U/L (0-41); Albumin Level 2.6 g/dL (3.5-5.2); Alkaline Phosphatase 76 IU/L (40-130); Aspartate Amino Transferase 20 U/L (0-40); Blood Urea Nitrogen 79 mg/dL (8-23); Calcium 8.2 mg/dL (8.5-10.5); Carbon Dioxide 22 mmol/L (22-29); Chloride 103 mmol/L (98-107); Globulin 2.5 g/dL (1.3-4.6); Glucose 86 mg/dL (65-115); Osmolality Calculated 311 mOsm/kg (285-295); Sodium 139 mmol/L (136-145); Total Bilirubin 0.2 mg/dL (0.15-1.2); Total Protein 5.1 g/dL (6.6-8.7)
[2020-07-27 06:50] LABS: Anion Gap 18.2 (5-19); Potassium 4.2 mmol/L (3.5-5.1)
[2020-07-27 07:33] LABS: Magnesium 1.8 mg/dL (1.7-2.3); Phosphorus 5.4 mg/dL (2.5-4.5)
[2020-07-27] MEDS: sevelamer 800 mg Tablet PO ×3 (08:13→21:51)
[2020-07-27] MEDS: amlodipine 10 mg Tablet 2.5 MG PO (08:13)
[2020-07-27] MEDS: pantoprazole DR 40 mg Tablet PO (08:13)
[2020-07-27] MEDS: predniSONE 20 mg Tablet 10 MG PO (08:13)
[2020-07-27] MEDS: hyDRALAzine 20 mg/mL INJ 1 mL 10 MG IVP (08:14)
[2020-07-27] MEDS: saline nasal spray 44mL Btl 2 SPRAY NASAL ×3 (08:15→21:51)
--- NOTE | 2020-07-27 08:29 | PC.NURSE ---
Patient refuses breakfast, after encouragement to take pills with one bite of pudding patient agreed, coughing heavily after administration, repositioned in bed and applied barrier ointment to sacrum, currently on 15L face mask, oxygen saturation 93%, continuous pulse ox in place.
--- NOTE | 2020-07-27 09:24 | PM.PN ---
Subjective Subjective: Interval history: sob, weak, lethargic. on fm o2- 15 l Medications: Reviewed: Yes Medication Review Details: Current Medications Acetaminophen (Acetaminophen 325 Mg Tablet) 650 mg PO Q6H PRN PRN Reason: Mild/Mod Pain Or Temp >/= 101 Last Admin: 07/26/20 20:51 Dose: 650 mg Documented by: Albuterol/Ipratropium (Duoneb) 3 ml INHALATION Q6H.RESPIRATORY BLOSSOM Last Admin: 07/27/20 07:55 Dose: 3 ml Documented by: Amlodipine Besylate (Norvasc) 2.5 mg PO DAILY [facility] Last Admin: 07/27/20 08:13 Dose: 2.5 mg Documented by: Atorvastatin Calcium (Lipitor) 20 mg PO BEDTIME BLOSSOM Last Admin: 07/26/20 21:00 Dose: Not Given Documented by: Benzonatate (Benzonatate 100 Mg Capsule) 100 mg PO TID PRN PRN Reason: COUGH Last Admin: 07/25/20 22:41 Dose: 100 mg Documented by: Ergocalciferol (Vitamin D2) 50,000 unit PO Q7D [facility] Last Admin: 07/23/20 11:50 Dose: Not Given Documented by: Guaifenesin/Dextromethorphan (Guaifenesin-Dextromethorphan Udc 10 Ml) 5 ml PO Q4H PRN PRN Reason: COUGH Guaifenesin/Dextromethorphan (Guaifenesin-Dextromethorphan Udc 10 Ml) 5 ml PO BID [facility] Last Admin: 07/27/20 08:29 Dose: Not Given Documented by: Heparin Sodium (Beef Lung) (Heparin 5,000 Unit/Ml Inj 1 Ml) 5,000 unit SUBCUT Q12H [facility] Last Admin: 07/27/20 04:57 Dose: Not Given Documented by: Hydralazine HCl (Hydralazine 20 Mg/Ml Inj 1 Ml) 10 mg IVP Q4H PRN PRN Reason: Blood pressure over 140 Last Admin: 07/27/20 08:14 Dose: 10 mg Documented by: Imipenem/Cilastatin Sodium 250 (mg/ Sodium Chloride) 100 mls @ 200 mls/hr IV Q12H [facility]; Protocol Last Admin: 07/27/20 01:11 Dose: 200 mls/hr Documented by: Vancomycin/PEG/[place]/Lysine/Water (Vancocin) 1,250 mg in 250 mls @ 200 mls/hr IV Q48H [facility] Last Admin: 07/26/20 13:25 Dose: 200 mls/hr Documented by: Labetalol HCl (Labetalol 5 Mg/Ml Sdv 20ml) 10 mg IVP PRN PRN PRN Reason: SBP GREATER THEN 160 Metoclopramide HCl (Reglan) 10 mg IVP ONCE PRN PRN Reason: N/V if zofran ineffective Mirtazapine (Remeron) 30 mg PO BEDTIME [facility] Last Admin: 07/26/20 21:00 Dose: Not Given Documented by: Ondansetron HCl (Zofran) 4 mg IVP Q4H PRN PRN Reason: NAUSEA AND VOMITING Last Admin: 07/23/20 15:08 Dose: 4 mg Documented by: Pantoprazole Sodium (Protonix) 40 mg PO DAILY [facility] Last Admin: 07/27/20 08:13 Dose: 40 mg Documented by: Prednisone (Prednisone 20 Mg Tablet) 10 mg PO DAILY [facility] Last Admin: 07/27/20 08:13 Dose: 10 mg Documented by: Fluticasone/Salmeterol (Advair Diskus 250-50) 1 puff INHALATION BID.RESPIRATORY [facility] Last Admin: 07/27/20 08:18 Dose: Not Given Documented by: Sevelamer Carbonate (Sevelamer 800 Mg Tablet) 800 mg PO TID [facility] Last Admin: 07/27/20 08:13 Dose: 800 mg Documented by: Sodium Chloride ([place] Nasal [place]) 2 spray NASAL TID [facility] Last Admin: 07/27/20 08:15 Dose: 2 spray Documented by: Vitals/I&O/Wt Last Vital Signs Temp 99.4 F 07/27/20 08:00 Pulse 99 07/27/20 08:00 Resp 22 H 07/27/20 08:00 BP 163/103 07/27/20 08:00 Pulse Ox 96 07/27/20 08:00 07/26/20 07/27/20 07/27/20 22:59 06:59 14:59 Intake Total 180 / 340 0 / 340 Output Total 750 / 1300 Balance 180 / -210 -750 / -960 Weight last 48 hrs Weight 61.054 kg Weight 64.41 kg Physical Exam Narrative: EXAM NARRATIVE: elderly frail man SOB in bed, using 15 liters oxygen FM vs noted. -sob heent- nc/at, eomi skin rash stable neck supple lungs ronchi b/l heart reg, no rub abd soft, nt, nd, +BS ext + leg edema b/l neuro- awake,confused, weak + mueller catheter Urinary Catheter Management^: Mueller: Cath Placed During This Visit: no Reason for Continuing Indwelling Catheter: Acute Urinary Retention or Obstruction Data : 07/27/20 05:37 07/27/20 05:37 A&P Additional A&P Information 1. CKD 4 with progressive renal dysfunction - Creatinine slightly improved since yesterday; reassuring - Known P-ANCA since 2003 - agree w/ holding Immunosuppressant therapy -urine output has decreased, more SOB -i am willing to attempt HD. Till now family does not want HD. - I spoke w/ pts son, Jake Alegre- [phone]- we discussed risks and benefits of dialysis. Family will consider options and let me know. - diurese as needed for effusions and abx for PNA - Avoid usual nephrotoxic agents - Strict ins and outs 2. Pneumonia, currently on combination antibiotics with Primaxin and Vancocin - renal dose abx 3. s/p abx for UTI 4. HTN- monitor w/ diuresis 5. anemia- hgb above 10. s/p iv iron normal kappa/ lambda ratio 6. s/p ORIF femur 7. pt not eating well, malnourished 8. phos binder if possible Long discussion w/ Dr. Peguero and pts son, Jake. If pt does not attempt dialysis, would consider comfort care. 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
--- NOTE | 2020-07-27 09:44 | PC.SOCIAL ---
IMM Update Pg. 2 of IMM updated with patient's daughter, Melissa, who answers the phone for patient's . Verbalized understanding.
[2020-07-27] MEDS: FUROsemide 10 mg/mL SDV 10mL 60 MG IVP ×2 (09:57→22:28)
--- NOTE | 2020-07-27 10:35 | PC.NURSE ---
patients son called this nurse requesting to speak to physician in regards to dialysis, Dr. Peguero notified.
--- NOTE | 2020-07-27 10:56 | PC.NURSE ---
It is difficult to keep patient wearing oxy mask to keep oxygen saturation above 90%, patient removes mask frequently and is frustrated when this nurse replaces it, Oxygen 95% on 15L oxymask and down to 80% when removed by patient, continuous pulse ox in place with alarm limits to notify nurse.
--- NOTE | 2020-07-27 11:18 | PM.PN ---
Subjective Subjective: Interval history: was drowsy this morning,has been spiking temperature.Poor oral intake, Tachypenic . Medications: Reviewed: Yes Medication Review Details: Current Medications Acetaminophen (Acetaminophen 325 Mg Tablet) 650 mg PO Q6H PRN PRN Reason: Mild/Mod Pain Or Temp >/= 101 Last Admin: 07/26/20 20:51 Dose: 650 mg Documented by: Albuterol/Ipratropium (Duoneb) 3 ml INHALATION Q6H.RESPIRATORY BLOSSOM Last Admin: 07/27/20 07:55 Dose: 3 ml Documented by: Amlodipine Besylate (Norvasc) 2.5 mg PO DAILY [facility] Last Admin: 07/27/20 08:13 Dose: 2.5 mg Documented by: Atorvastatin Calcium (Lipitor) 20 mg PO BEDTIME [facility] Last Admin: 07/26/20 21:00 Dose: Not Given Documented by: Benzonatate (Benzonatate 100 Mg Capsule) 100 mg PO TID PRN PRN Reason: COUGH Last Admin: 07/25/20 22:41 Dose: 100 mg Documented by: Ergocalciferol (Vitamin D2) 50,000 unit PO Q7D [facility] Last Admin: 07/23/20 11:50 Dose: Not Given Documented by: Guaifenesin/Dextromethorphan (Guaifenesin-Dextromethorphan Udc 10 Ml) 5 ml PO Q4H PRN PRN Reason: COUGH Guaifenesin/Dextromethorphan (Guaifenesin-Dextromethorphan Udc 10 Ml) 5 ml PO BID BLOSSOM Last Admin: 07/27/20 08:29 Dose: Not Given Documented by: Heparin Sodium (Beef Lung) (Heparin 5,000 Unit/Ml Inj 1 Ml) 5,000 unit SUBCUT Q12H [facility] Last Admin: 07/27/20 04:57 Dose: Not Given Documented by: Hydralazine HCl (Hydralazine 20 Mg/Ml Inj 1 Ml) 10 mg IVP Q4H PRN PRN Reason: Blood pressure over 140 Last Admin: 07/27/20 08:14 Dose: 10 mg Documented by: Imipenem/Cilastatin Sodium 250 (mg/ Sodium Chloride) 100 mls @ 200 mls/hr IV Q12H [facility]OSS[facility]; Protocol Last Admin: 07/27/20 01:11 Dose: 200 mls/hr Documented by: Vancomycin/PEG/NADA/Lysine/Water (Vancocin) 1,250 mg in 250 mls @ 200 mls/hr IV Q48H [facility] Last Admin: 07/26/20 13:25 Dose: 200 mls/hr Documented by: Labetalol HCl (Labetalol 5 Mg/Ml Sdv 20ml) 10 mg IVP PRN PRN PRN Reason: SBP GREATER THEN 160 Metoclopramide HCl (Reglan) 10 mg IVP ONCE PRN PRN Reason: N/V if zofran ineffective Mirtazapine (Remeron) 30 mg PO BEDTIME [facility] Last Admin: 07/26/20 21:00 Dose: Not Given Documented by: Ondansetron HCl (Zofran) 4 mg IVP Q4H PRN PRN Reason: NAUSEA AND VOMITING Last Admin: 07/23/20 15:08 Dose: 4 mg Documented by: Pantoprazole Sodium (Protonix) 40 mg PO DAILY [facility] Last Admin: 07/27/20 08:13 Dose: 40 mg Documented by: Prednisone (Prednisone 20 Mg Tablet) 10 mg PO DAILY [facility] Last Admin: 07/27/20 08:13 Dose: 10 mg Documented by: Fluticasone/Salmeterol (Advair Diskus 250-50) 1 puff INHALATION BID.RESPIRATORY [facility] Last Admin: 07/27/20 08:18 Dose: Not Given Documented by: Sevelamer Carbonate (Sevelamer 800 Mg Tablet) 800 mg PO TID [facility] Last Admin: 07/27/20 08:13 Dose: 800 mg Documented by: Sodium Chloride ([place] Nasal [place]) 2 spray NASAL TID [facility] Last Admin: 07/27/20 08:15 Dose: 2 spray Documented by: Vitals/I&O/Wt Last Vital Signs Temp 99.4 F 07/27/20 08:00 Pulse 99 07/27/20 08:00 Resp 22 H 07/27/20 08:00 BP 163/103 07/27/20 08:00 Pulse Ox 96 07/27/20 08:00 07/26/20 07/27/20 07/27/20 22:59 06:59 14:59 Intake Total 180 / 340 0 / 340 Output Total 750 / 1300 Balance 180 / -210 -750 / -960 Weight last 48 hrs Weight 61.054 kg Weight 64.41 kg Physical Exam Const: COMMON NORMALS: patient oriented x3 HENMT: COMMON NORMALS: normocephalic, atraumatic and external ears normal HEAD & SCALP: normocephalic and atraumatic EXTERNAL EAR: Yes external ears normal Eye: COMMON NORMALS: no scleral icterus GENERAL EYE: appearance normal, both eyes and all related structures Chest: COMMONS NORMALS: normal inspection of the chest and normal palpation of entire chest wall CHEST: Yes Symmetrical chest wall rise Resp: COMMON NORMALS: normal respiratory effort, No retractions and No use of accessory muscles EFFORT & INSPECTION: Yes abnormal respiratory pattern, Yes tachypneic, Yes respiratory distress and Yes labored AUSCULTATION: crackles, rhonchi and diminished lung sounds OTHER: B/L diffuse Crackles present in both lungs pereira. Cardio: COMMON NORMALS: regular rate, regular rhythm, S1 normal heart sound present, S2 normal heart sound present, No gallops present (Cardio), No murmurs present (Cardio), No rub (Cardio) and Peripheral pulses 2+ throughout RATE: regular rate RHYTHM: regular rhythm HEART SOUNDS: S1 normal heart sound present and S2 normal heart sound present PERIPHERAL PULSES: Peripheral pulses 2+ throughout GI: COMMON NORMALS: Normal to inspection, nondistended, normoactive bowel sounds present, Soft to palpation, non-tender, No hepatosplenomegaly present and no masses AUSCULTATION: Yes normoactive bowel sounds PALPATION: Yes Soft to palpation and Yes No hepatosplenomegaly present RECTAL EXAM: Yes deferred Extremity: COMMON NORMALS: no clubbing, cyanosis or edema and no pedal edema Neuro: COMMON NORMALS: patient oriented x3 Urinary Catheter Management^: Lund: Cath Placed During This Visit: no Reason for Continuing Indwelling Catheter: Acute Urinary Retention or Obstruction Data : 07/27/20 05:37 07/27/20 05:37 A&P Assessment and plan (1) Sepsis: Sepsis 2/2 to PNA Patient is spiking temp,has PNA, Tachypenic. Swan culture,lactic acid , procal. Continue Van and imipenam Status: Acute (2) Uremic encephalopathy: uremic encephalopathy,this am as he was drowsy lethargic, intermittent confusion . High BUN Plan: Request family to consider H.D Status: Acute (3) Respiratory failure: Acute hypoxic respiratory failure secondary to pneumonia as well as Ac on Chronic HFpEF Exacerbation. Patient is on vancomycin and imipenem. He is also receiving IV diuresis. Status: Acute (4) Heart failure: - Ac on Chronic HFpEF Exacerbation:: ( Echo (05/2020): EF=62%, mild concentric LVH, mild AR, trace MR, trace TR ). -Has diffuse crackles in both Lung pereira. -C.T Chest B/L PLeural effusion - I.V lasix 80 mg I.V Q12 H Daily was kept on hold today due to worsening kidney function. 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 Renal function unchanged -Nephrology consult appreciated -Had renal ultrasound done last month which showed markedly diminished velocities in the renal arteries which may be suggestive of proximal stenosis, unfortunately cannot do CTA due to renal function. Repeat US shows small volume kidneys bilaterally with increased echogenicity consistent with chronic medical renal disease -urine lytes, repeat UA noted, CPK wnl, elevated PTH consistent with secondary hyperparathyroidism; low vitamin D indicating vitamin D deficiency, on supplementation -Follows up with nephrology (Dr. Earl Brown, ) at [facility] -off IVF; encourage oral hydration -has Lund catheter in place, continue to monitor Is & Os, assess daily for removal -on sodium bicarbonate drip -decreased BP meds to increase renal perfusion -cellcept resumed at 500 mg BID (07/16), steroids titrated -noted potential need for dialysis with progression of CKD Status: Chronic Qualifiers: Chronic kidney disease stage 3 subtype: unspecified whether 3a or 3b Qualified Code(s): N18.30 - Chronic kidney disease, stage 3 unspecified (7) Anemia: -With episodes of R sided epistaxis that required packing on 07/08 -Has known history of anemia and has had prior GI work-up which per patient was negative for any acute bleeding source -Prior admission last month for severe anemia with hemoglobin as low as 4 and requirement of transfusion of blood products -s/p 1 unit with improvement in Hg up to 10 (06/15) -continue to monitor H/H closely; s/p 1 unit of PRBCs (07/15) with noted stability thereafter -on IV iron, iron studies noted Status: Chronic Qualifiers: Anemia type: unspecified type Qualified Code(s): D64.9 - Anemia, unspecified (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 -Currently on heparin 5000 subcu every 12 hours. -Found to have right perineal vein thrombosis on venous duplex done on 05/16/20. Status: Acute Qualifiers: Affected thrombotic vein of extremity: unspecified vein of extremity Chronicity: chronic DVT location: lower extremity Laterality: unspecified laterality Qualified Code(s): I82.509 - Chronic embolism and thrombosis of unspecified deep veins of unspecified lower extremity Additional A&P Information -Treated for COVID-19 infection last month -Recurrent falls, generalized weakness, physical deconditioning, previously had rhabdomyolysis which resolved; PT evaluation appreciated, strict fall precautions -Known history of hypertension, on oral antihypertensives -GERD; on PPI and carafate -Hyperlipidemia; continue statin -Skin cancer affecting L ear; currently undergoing treatment -Very hard of hearing; hearing slightly better on the R -underlying cognitive impairment; reorient as needed -ST evaluation done due to noted difficulty swallowing; no overt aspiration noted, regular consistently recommended as well as crushing meds which patient has declined, he wants to take his medications whole -cardiac diet as tolerated -GI ppx with PPI -DVT ppx : On heparin -Dispo: [facility] -Code status: DNR/DNI -guarded prognosis due to multiple comorbid condition and impending renal failure. Attestations Medical Necessity Statement*: Patient needs to be in hospital for the management of RF, PNA,worseing renal function. Coding Level of Care Code Acute Kn[employer] Press Hand for [facility] Fwd Diagnoses Sepsis A41.9 Uremic encephalopathy G93.49; N19 Respiratory failure J96.90 Heart failure I50.9 Pneumonia J18.9 Chronic kidney disease, stage III (moderate) N18.30 Chronic kidney disease stage 3 subtype: unspecified whether 3a or 3b Anemia D64.9 Anemia type: unspecified type Polyarteritis nodosa M30.0 DVT (deep venous thrombosis) I82.509 Affected thrombotic vein of extremity: unspecified vein of extremity Chronicity: chronic DVT location: lower extremity Laterality: unspecified laterality
--- NOTE | 2020-07-27 11:38 | PC.NURSE ---
Received new orders from Dr. Peguero to hold heparin. see MAR for further details.
--- NOTE | 2020-07-27 11:54 | PC.NURSE ---
Received new orders from Dr. Peguero to decrease oxygen to 5L via oxymask, and continue to monitor oxygen saturation with continuous pulse ox. Decreased to 5L.
[2020-07-27 12:54] LABS: Vancomycin Random 26.4 ug/mL (20.0-40.0)
--- NOTE | 2020-07-27 13:11 | US_ITS ---
WS: [id number] Ultrasound chest. HISTORY: Bilateral pleural effusions. Evaluate volume. Small to moderate bilateral pleural effusions are evident. Atelectatic lung is noted within the pleur al fluid. Pleural fluid is simple. US/US chest [id number] IMPRESSION: Small to moderate bilateral pleural effusions.
[2020-07-27] MEDS: guaiFENesin-dextromethorphan UDC 10 mL 5 ML PO (17:10)
--- NOTE | 2020-07-27 18:05 | PC.NURSE ---
Patient family just left for visitation hours and informed this nurse Please tell Dr. Peguero we want to try the dialysis and we are all in agreement with this. Dr. Peguero notified.
[2020-07-27] MEDS: atorvastatin 40 mg Tablet 20 MG PO (21:51)
[2020-07-27] MEDS: acetaminophen 325 mg Tablet 650 MG PO (21:51)
[2020-07-27] MEDS: mirtazapine 30 mg Tablet PO (21:51)
[2020-07-27] MEDS: ondansetron 2 mg/ML SDV 2 mL 4 MG IVP (22:28)
[2020-07-28] VITALS (12 sets, daily range): BP systolic 152–161; BP diastolic 85–104; PULSE 86–108; RESP 16–22; TEMP 36.8–38; O2SAT 91–98
--- NOTE | 2020-07-28 | US_ITS ---
WS: [id number] ULTRASOUND-GUIDED THORACENTESIS, RIGHT. HISTORY: BILAT PLEURAL EFFUSIONS Procedure, risks, and complications were explained to the patient. With the patient in an upright pos ition, the skin over the RIGHT posterior thorax was cleansed with ChloraPrep and anesthetized with 1% buffered lidocaine. A 5 [place] Yueh needle is inserted into the pleural fluid without complication. Approximately 1000 cc of clear yellow pleural fluid is removed without difficulty. Pleural fluid specimen sent for analysis as requested. / thoracentesis [id number] IMPRESSION: 1. RIGHT thoracentesis yielding 1000 cc of fluid. 2. Chest radiograph to follow to evaluate for pneumothorax. 3. Pleural fluid sent for analysis as requested.
[2020-07-28 01:52] LABS: Basophils % 0.2 %; Eosinophils % 0.7 %; Hemoglobin 9.9 g/dL (11.7-16.6); Lymphocytes # 0.2 10^3/uL (0.8-4.8); Lymphocytes % 3.6 %; Mean Corpuscular Hemoglobin 28.7 pg (28.0-34.0); Mean Corpuscular Volume 95.7 fL (80-94); Mean Platelet Volume 10.6 fL (7.4-10.4); Monocytes # 0.1 10^3/uL (0.2-0.9); Monocytes % 1.2 %; Neutrophils # 5.52 10^3/uL (1.8-7.7); Neutrophils % 93.6 %; Nucleated Red Blood Cells % 0 %; Platelet Count 116 10^3/cmm (130-400); Red Blood Count 3.45 10^6/uL (4.1-5.3); Red Cell Distribution Width 15.6 % (12.1-15.1); White Blood Count 5.9 10^3/uL (4.0-10.0)
[2020-07-28 02:11] LABS: Magnesium 1.7 mg/dL (1.7-2.3); Phosphorus 5.8 mg/dL (2.5-4.5)
[2020-07-28 02:12] LABS: Alanine Aminotransferase < 5 U/L (0-41); Albumin Level 2.4 g/dL (3.5-5.2); Alkaline Phosphatase 67 IU/L (40-130); Anion Gap 19.2 (5-19); Aspartate Amino Transferase 17 U/L (0-40); Blood Urea Nitrogen 79 mg/dL (8-23); Calcium 8.4 mg/dL (8.5-10.5); Carbon Dioxide 22 mmol/L (22-29); Chloride 103 mmol/L (98-107); Globulin 2.3 g/dL (1.3-4.6); Glucose 83 mg/dL (65-115); Osmolality Calculated 313 mOsm/kg (285-295); Potassium 4.2 mmol/L (3.5-5.1); Sodium 140 mmol/L (136-145); Total Bilirubin 0.2 mg/dL (0.15-1.2); Total Protein 4.7 g/dL (6.6-8.7)
[2020-07-28] MEDS: ipratropium-albuterol 3 mL Neb INHALATION ×3 (03:05→15:13)
--- NOTE | 2020-07-28 05:13 | PC.NURSE ---
Patient was on 12 Liters oxymask through the night. Patient became febrile of 101.5. Tylenol administered and patient is afebrile this am.
--- NOTE | 2020-07-28 08:35 | PC.NURSE ---
pt took oxymask off and saturations were at 77 % when nurse arrived in room, pt grunted when replacing oxymask. pt is refusing to eat breakfast this am.
--- NOTE | 2020-07-28 09:58 | XR_ITS ---
WS: [id number] PORTABLE CHEST HISTORY: post thoracentesis COMPARISON: 07/23/2020 No pneumothorax status post RIGHT thoracentesis. No residual effusion noted by radiograph. Continued bilateral patchy opacifications have significantly improved since the prior study. Small LE FT pleural effusion. Cardiac size: Normal. Mediastinum/Aorta: Mild atherosclerosis aorta. No osseous abnormality seen. Right-sided PICC line remains in good position. XR/XR chest 1V portable [id number] IMPRESSION: 1. No pneumothorax status post RIGHT thoracentesis. 2. Moderate improvement of bilateral pulmonary opacifications.
[2020-07-28] MEDS: FUROsemide 10 mg/mL SDV 10mL 60 MG IVP ×2 (10:21→22:34)
--- NOTE | 2020-07-28 10:49 | P.PN_ITS ---
Subjective Subjective: Interval history: continues to require high supplemental oxygen,has been drowsy,with poor oral intake, and has refused medications. Has remained afebrile today. Good urine output on lasix. Medications: Reviewed: Yes Medication Review Details: Current Medications Acetaminophen (Acetaminophen 325 Mg Tablet) 650 mg PO Q6H PRN PRN Reason: Mild/Mod Pain Or Temp >/= 101 Last Admin: 07/26/20 20:51 Dose: 650 mg Documented by: Albuterol/Ipratropium (Duoneb) 3 ml INHALATION Q6H.RESPIRATORY BLOSSOM Last Admin: 07/27/20 07:55 Dose: 3 ml Documented by: Amlodipine Besylate (Norvasc) 2.5 mg PO DAILY [facility] Last Admin: 07/27/20 08:13 Dose: 2.5 mg Documented by: Atorvastatin Calcium (Lipitor) 20 mg PO BEDTIME [facility] Last Admin: 07/26/20 21:00 Dose: Not Given Documented by: Benzonatate (Benzonatate 100 Mg Capsule) 100 mg PO TID PRN PRN Reason: COUGH Last Admin: 07/25/20 22:41 Dose: 100 mg Documented by: Ergocalciferol (Vitamin D2) 50,000 unit PO Q7D [facility] Last Admin: 07/23/20 11:50 Dose: Not Given Documented by: Guaifenesin/Dextromethorphan (Guaifenesin-Dextromethorphan Udc 10 Ml) 5 ml PO Q4H PRN PRN Reason: COUGH Guaifenesin/Dextromethorphan (Guaifenesin-Dextromethorphan Udc 10 Ml) 5 ml PO BID [facility]OSSOM Last Admin: 07/27/20 08:29 Dose: Not Given Documented by: Heparin Sodium (Beef Lung) (Heparin 5,000 Unit/Ml Inj 1 Ml) 5,000 unit SUBCUT Q12H [facility] Last Admin: 07/27/20 04:57 Dose: Not Given Documented by: Hydralazine HCl (Hydralazine 20 Mg/Ml Inj 1 Ml) 10 mg IVP Q4H PRN PRN Reason: Blood pressure over 140 Last Admin: 07/27/20 08:14 Dose: 10 mg Documented by: Imipenem/Cilastatin Sodium 250 (mg/ Sodium Chloride) 100 mls @ 200 mls/hr IV Q12H [facility]; Protocol Last Admin: 07/27/20 01:11 Dose: 200 mls/hr Documented by: Vancomycin/PEG/NADA/Lysine/Water (Vancocin) 1,250 mg in 250 mls @ 200 mls/hr IV Q48H [facility] Last Admin: 07/26/20 13:25 Dose: 200 mls/hr Documented by: Labetalol HCl (Labetalol 5 Mg/Ml Sdv 20ml) 10 mg IVP PRN PRN PRN Reason: SBP GREATER THEN 160 Metoclopramide HCl (Reglan) 10 mg IVP ONCE PRN PRN Reason: N/V if zofran ineffective Mirtazapine (Remeron) 30 mg PO BEDTIME [facility] Last Admin: 07/26/20 21:00 Dose: Not Given Documented by: Ondansetron HCl (Zofran) 4 mg IVP Q4H PRN PRN Reason: NAUSEA AND VOMITING Last Admin: 07/23/20 15:08 Dose: 4 mg Documented by: Pantoprazole Sodium (Protonix) 40 mg PO DAILY [facility] Last Admin: 07/27/20 08:13 Dose: 40 mg Documented by: Prednisone (Prednisone 20 Mg Tablet) 10 mg PO DAILY [facility] Last Admin: 07/27/20 08:13 Dose: 10 mg Documented by: Fluticasone/Salmeterol (Advair Diskus 250-50) 1 puff INHALATION BID.RESPIRATORY [facility] Last Admin: 07/27/20 08:18 Dose: Not Given Documented by: Sevelamer Carbonate (Sevelamer 800 Mg Tablet) 800 mg PO TID [facility] Last Admin: 07/27/20 08:13 Dose: 800 mg Documented by: Sodium Chloride ([place] Nasal [place]) 2 spray NASAL TID [facility] Last Admin: 07/27/20 08:15 Dose: 2 spray Documented by: Vitals/I&O/Wt Last Vital Signs Temp 98.3 F 07/28/20 07:52 Pulse 98 07/28/20 10:21 Resp 20 H 07/28/20 10:21 BP 156/104 07/28/20 10:21 Pulse Ox 93 07/28/20 07:52 07/27/20 07/28/20 07/28/20 22:59 06:59 14:59 Intake Total 200 / 300 480 / 780 100 / 100 Output Total 1200 / 1200 400 / 1600 Balance -1000 / -900 80 / -820 100 / 100 Weight last 48 hrs Weight 63.548 kg Weight 61.054 kg Physical Exam Const: COMMON NORMALS: patient oriented x3 HENMT: COMMON NORMALS: normocephalic, atraumatic and external ears normal HEAD & SCALP: normocephalic and atraumatic EXTERNAL EAR: Yes external ears normal Eye: COMMON NORMALS: no scleral icterus GENERAL EYE: appearance normal, both eyes and all related structures Chest: COMMONS NORMALS: normal inspection of the chest and normal palpation of entire chest wall CHEST: Yes Symmetrical chest wall rise Resp: COMMON NORMALS: normal respiratory effort, No retractions and No use of accessory muscles EFFORT & INSPECTION: Yes abnormal respiratory pattern, Yes tachypneic, Yes respiratory distress, Yes labored and Yes uses accessory muscles AUSCULTATION: rales, rhonchi and wheezes OTHER: B/L diffuse Crackles present in both lungs pereira. Cardio: COMMON NORMALS: regular rate, regular rhythm, S1 normal heart sound present, S2 normal heart sound present, No gallops present (Cardio), No murmurs present (Cardio), No rub (Cardio) and Peripheral pulses 2+ throughout RATE: regular rate RHYTHM: regular rhythm HEART SOUNDS: S1 normal heart sound present and S2 normal heart sound present PERIPHERAL PULSES: Peripheral pulses 2+ throughout GI: COMMON NORMALS: Normal to inspection, nondistended, normoactive bowel sounds present, Soft to palpation, non-tender, No hepatosplenomegaly present and no masses AUSCULTATION: Yes normoactive bowel sounds PALPATION: Yes Soft to palpation and Yes No hepatosplenomegaly present RECTAL EXAM: Yes deferred Extremity: COMMON NORMALS: no clubbing, cyanosis or edema and no pedal edema Neuro: COMMON NORMALS: patient oriented x3 Urinary Catheter Management^: Lund: Cath Placed During This Visit: no Reason for Continuing Indwelling Catheter: Acute Urinary Retention or Obstruction Data : 07/28/20 01:45 07/28/20 01:45 A&P Assessment and plan (1) Sepsis: Sepsis 2/2 to PNA Patient is spiking temp,has PNA, Tachypenic. Swan culture,lactic acid , procal. Continue Van and imipenam Status: Acute (2) Uremic encephalopathy: uremic encephalopathy,this am as he was drowsy lethargic, intermittent confusion . High BUN Plan: Request family to consider H.D Status: Acute (3) Respiratory failure: Acute hypoxic respiratory failure secondary to pneumonia as well as Ac on Chronic HFpEF Exacerbation. Patient is on vancomycin and imipenem. He is also receiving IV diuresis. S/P Rt Thoracentesis :With Clear 600 cc Transduative aspirate. Pleural fluid sent for analysis Status: Acute (4) Heart failure: - Ac on Chronic HFpEF Exacerbation:: ( Echo (05/2020): EF=62%, mild concentric LVH, mild AR, trace MR, trace TR ). -Has diffuse crackles in both Lung pereira. -C.T Chest B/L PLeural effusion - I.V lasix 80 mg I.V Q12 H Daily was kept on hold today due to worsening kidney function. 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 Renal function unchanged -Nephrology consult appreciated -Had renal ultrasound done last month which showed markedly diminished velocities in the renal arteries which may be suggestive of proximal stenosis, unfortunately cannot do CTA due to renal function. Repeat US shows small volume kidneys bilaterally with increased echogenicity consistent with chronic medical renal disease -urine lytes, repeat UA noted, CPK wnl, elevated PTH consistent with secondary hyperparathyroidism; low vitamin D indicating vitamin D deficiency, on supplementation -Follows up with nephrology (Dr. Earl Brown, ) at [facility] -off IVF; encourage oral hydration -has Lund catheter in place, continue to monitor Is & Os, assess daily for removal -on sodium bicarbonate drip -decreased BP meds to increase renal perfusion -cellcept resumed at 500 mg BID (07/16), steroids titrated -noted potential need for dialysis with progression of CKD -S/P rt femoral hesham catheter placement: H.D today. Status: Chronic Qualifiers: Chronic kidney disease stage 3 subtype: unspecified whether 3a or 3b Qualified Code(s): N18.30 - Chronic kidney disease, stage 3 unspecified (7) Anemia: -With episodes of R sided epistaxis that required packing on 07/08 -Has known history of anemia and has had prior GI work-up which per patient was negative for any acute bleeding source -Prior admission last month for severe anemia with hemoglobin as low as 4 and requirement of transfusion of blood products -s/p 1 unit with improvement in Hg up to 10 (06/15) -continue to monitor H/H closely; s/p 1 unit of PRBCs (07/15) with noted stability thereafter -on IV iron, iron studies noted Status: Chronic Qualifiers: Anemia type: unspecified type Qualified Code(s): D64.9 - Anemia, unspecified (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 -Currently on heparin 5000 subcu every 12 hours. -Found to have right perineal vein thrombosis on venous duplex done on 05/16/20. Status: Acute Qualifiers: Affected thrombotic vein of extremity: unspecified vein of extremity Chronicity: chronic DVT location: lower extremity Laterality: unspecified l aterality Qualified Code(s): I82.509 - Chronic embolism and thrombosis of unspecified deep veins of unspecified lower extremity Additional A&P Information -Treated for COVID-19 infection last month -Recurrent falls, generalized weakness, physical deconditioning, previously had rhabdomyolysis which resolved; PT evaluation appreciated, strict fall precautions -Known history of hypertension, on oral antihypertensives -GERD; on PPI and carafate -Hyperlipidemia; continue statin -Skin cancer affecting L ear; currently undergoing treatment -Very hard of hearing; hearing slightly better on the R -underlying cognitive impairment; reorient as needed -ST evaluation done due to noted difficulty swallowing; no overt aspiration noted, regular consistently recommended as well as crushing meds which patient has declined, he wants to take his medications whole -cardiac diet as tolerated -GI ppx with PPI -DVT ppx : On heparin -Dispo: [facility] -Code status: DNR/DNI -guarded prognosis due to multiple comorbid condition and impending renal f ailure. Attestations Medical Necessity Statement*: Patient needs to be in hospital for the management of sepsis, PNA, HF,R.F, Progressive Renal failure. Coding Level of Care Code Acute [employer] Operator for [facility] Fwd Diagnoses Sepsis A41.9 Uremic encephalopathy G93.49; N19 Respiratory failure J96.90 Heart failure I50.9 Pneumonia J18.9 Chronic kidney disease, stage III (moderate) N18.30 Chronic kidney disease stage 3 subtype: unspecified whether 3a or 3b Anemia D64.9 Anemia type: unspecified type Polyarteritis nodosa M30.0 DVT (deep venous thrombosis) I82.509 Affected thrombotic vein of extremity: unspecified vein of extremity Chronicity: chronic DVT location: lower extremity Laterality: unspecified laterality
[2020-07-28 12:13] LABS: Mononuclear %, Pleural Fluid 95 %; Polynuclear Cells, Pleural % 5 %
[2020-07-28 12:18] LABS: Appearance, Pleural Fluid CLEAR (CLEAR); Color, Pleural Fluid Pale Yellow (Pale Yellow); PATH Referal YES
[2020-07-28 12:59] LABS: LDH Pleural Fluid 331 U/L; Pleural Fluid Cholesterol 30 mg/dL; Total Protein Pleural Fluid 2.1 g/dL
--- NOTE | 2020-07-28 13:12 | P.PN_ITS ---
Subjective Subjective: Interval history: Reviewed over the telephone (telemed cart unavailable) Remains weak and tired Thoracentesis performed today No other new issues, remains on high flow O2 UO noted to be 1600mL Medications: Reviewed: Yes Medication Review Details: Current Medications Acetaminophen (Acetaminophen 325 Mg Tablet) 650 mg PO Q6H PRN PRN Reason: Mild/Mod Pain Or Temp >/= 101 Last Admin: 07/26/20 20:51 Dose: 650 mg Documented by: Albuterol/Ipratropium (Duoneb) 3 ml INHALATION Q6H.RESPIRATORY [facility]OM Last Admin: 07/27/20 07:55 Dose: 3 ml Documented by: Amlodipine Besylate (Norvasc) 2.5 mg PO DAILY [facility]OM Last Admin: 07/27/20 08:13 Dose: 2.5 mg Documented by: Atorvastatin Calcium (Lipitor) 20 mg PO BEDTIME [facility]OM Last Admin: 07/26/20 21:00 Dose: Not Given Documented by: Benzonatate (Benzonatate 100 Mg Capsule) 100 mg PO TID PRN PRN Reason: COUGH Last Admin: 07/25/20 22:41 Dose: 100 mg Documented by: Ergocalciferol (Vitamin D2) 50,000 unit PO Q7D [facility]OM Last Admin: 07/23/20 11:50 Dose: Not Given Documented by: Guaifenesin/Dextromethorphan (Guaifenesin-Dextromethorphan Udc 10 Ml) 5 ml PO Q4H PRN PRN Reason: COUGH Guaifenesin/Dextromethorphan (Guaifenesin-Dextromethorphan Udc 10 Ml) 5 ml PO BID BLOSSOM Last Admin: 07/27/20 08:29 Dose: Not Given Documented by: Heparin Sodium (Beef Lung) (Heparin 5,000 Unit/Ml Inj 1 Ml) 5,000 unit SUBCUT Q12H [facility]OM Last Admin: 07/27/20 04:57 Dose: Not Given Documented by: Hydralazine HCl (Hydralazine 20 Mg/Ml Inj 1 Ml) 10 mg IVP Q4H PRN PRN Reason: Blood pressure over 140 Last Admin: 07/27/20 08:14 Dose: 10 mg Documented by: Imipenem/Cilastatin Sodium 250 (mg/ Sodium Chloride) 100 mls @ 200 mls/hr IV Q12H BLOSSOM; Protocol Last Admin: 07/27/20 01:11 Dose: 200 mls/hr Documented by: Vancomycin/PEG/NADA/Lysine/Water (Vancocin) 1,250 mg in 250 mls @ 200 mls/hr IV Q48H [facility] Last Admin: 07/26/20 13:25 Dose: 200 mls/hr Documented by: Labetalol HCl (Labetalol 5 Mg/Ml Sdv 20ml) 10 mg IVP PRN PRN PRN Reason: SBP GREATER THEN 160 Metoclopramide HCl (Reglan) 10 mg IVP ONCE PRN PRN Reason: N/V if zofran ineffective Mirtazapine (Remeron) 30 mg PO BEDTIME [facility] Last Admin: 07/26/20 21:00 Dose: Not Given Documented by: Ondansetron HCl (Zofran) 4 mg IVP Q4H PRN PRN Reason: NAUSEA AND VOMITING Last Admin: 07/23/20 15:08 Dose: 4 mg Documented by: Pantoprazole Sodium (Protonix) 40 mg PO DAILY [facility] Last Admin: 07/27/20 08:13 Dose: 40 mg Documented by: Prednisone (Prednisone 20 Mg Tablet) 10 mg PO DAILY [facility] Last Admin: 07/27/20 08:13 Dose: 10 mg Documented by: Fluticasone/Salmeterol (Advair Diskus 250-50) 1 puff INHALATION BID.RESPIRATORY [facility] Last Admin: 07/27/20 08:18 Dose: Not Given Documented by: Sevelamer Carbonate (Sevelamer 800 Mg Tablet) 800 mg PO TID [facility] Last Admin: 07/27/20 08:13 Dose: 800 mg Documented by: Sodium Chloride ([place] Nasal [place]) 2 spray NASAL TID [facility] Last Admin: 07/27/20 08:15 Dose: 2 spray Documented by: Vitals/I&O/Wt Last Vital Signs Temp 98.4 F 07/28/20 11:34 Pulse 92 07/28/20 11:34 Resp 17 07/28/20 11:34 BP 157/88 07/28/20 11:34 Pulse Ox 93 07/28/20 11:34 07/27/20 07/28/20 07/28/20 22:59 06:59 14:59 Intake Total 200 / 300 480 / 780 100 / 100 Output Total 1200 / 1200 400 / 1600 Balance -1000 / -900 80 / -820 100 / 100 Weight last 48 hrs Weight 63.548 kg Weight 61.054 kg Physical Exam Narrative: EXAM NARRATIVE: Constitutional: Awake, comfortable, drowsy HEENT: Wet mucosa, no jvp, non icteric Lungs: Bilaterally clear without discernible wheeze, rales in all lung zones CVS: S1 S2, no murmurs Abdo: Soft, BS ok Ext 4: Minimal edema, peripheral perfusion with no cyanosis Neurological: Grossly non-focal Urinary Catheter Management^: Lund: Cath Placed During This Visit: no Reason for Continuing Indwelling Catheter: Acute Urinary Retention or Obstruction Data : 07/28/20 01:45 07/28/20 01:45 A&P Additional A&P Information 1. CKD 4 with progressive renal dysfunction - Creatinine high but stable - Known P-ANCA since 2003 - Immunosuppressant therapy minimized now - D/w family and patient; willing to have a trial of dialysis - will do 2 hrs of dialysis today with higher, more intense prescription tomorrow - Avoid usual nephrotoxic agents - Strict ins and outs 2. Pneumonia, currently on combination antibiotics with Primaxin and Vancocin - 12L mask on board - titrate down as he tolerates 3. Chemistry looks well balanced Caesar Evangelista MD Nephrology [phone] Patient seen and examined via telemedicine, with the assistance of the bedside RN Attestations Medical Necessity Statement*: eval for BOOGIE Coding Level of Care Code Acute Physiology Teacher for [facility]
[2020-07-28 13:54] LABS: Vancomycin Trough 24.2 ug/mL (10-15)
--- NOTE | 2020-07-28 14:19 | PC.OT ---
OT treatment attempted twice today. Pt declined both times and remained somnolent. Will attempt again tomorrow. Co sign: NILS Brothers/Vladislav
--- NOTE | 2020-07-28 19:11 | PC.NURSE ---
pt needed a thoracentesis, Dr Peguero stated that the son Jake Alegre had given a verbal consent, checked with boiler house supervisor who stated we needed to call and get a telephone consent with a second nurse. kit LEWIS and this nurse got a telephone consent for thoracentesis.
--- NOTE | 2020-07-28 19:17 | PC.NURSE ---
pt had dialysis port placed by Dr Ricahrds in left groin. Physician stated pedal pulses are to be checked oer shift and are marked along with right groin pulse is marked. pt tolerated procedure well and timeout was done at 1730.
--- NOTE | 2020-07-28 19:20 | PC.NURSE ---
SHIFT SUMMARY PT HAD DIALYSIS PORT PLACED, THORACENTESIS TO RIGHT SIDE, AND IS NOW RECEIVING DIALYSIS. PT IS TO HAVE PEDAL PULSES CHECKED PER SHIFT ALONG WITH RIGHT AND LEFT GROIN PULSES. DIALYSIS PORT WAS PLACED IN LEFT GROIN BY DR. STOLL. PT HAS HAD 900 ML OF URINE OUT THIS SHIFT. PT HAS NOT TAKEN ANY MEDICATIONS FROM THIS NURSE OR ATE MEALS THIS SHIFT. PT IS DOWN TO 4 LITERS NASAL CANNULA FOLLOWING THORACENTESIS.
[2020-07-28] MEDS: ondansetron 2 mg/ML SDV 2 mL 4 MG IVP (22:40)
[2020-07-29] VITALS (14 sets, daily range): BP systolic 143–170; BP diastolic 78–100; PULSE 85–108; RESP 15–22; TEMP 36.8–39.5; O2SAT 92–98
[2020-07-29 02:38] LABS: Basophils % 0.2 %; Eosinophils % 0.2 %; Hematocrit 35.5 % (42.0-52.0); Hemoglobin 10.6 g/dL (11.7-16.6); Lymphocytes # 0.2 10^3/uL (0.8-4.8); Mean Corpuscular HGB Conc 29.9 g/dL (30.0-36.0); Mean Corpuscular Volume 93.7 fL (80-94); Mean Platelet Volume 9.8 fL (7.4-10.4); Monocytes # 0.1 10^3/uL (0.2-0.9); Monocytes % 1.6 %; Neutrophils # 4.79 10^3/uL (1.8-7.7); Neutrophils % 94.6 %; Nucleated Red Blood Cells % 0 %; Platelet Count 92 10^3/cmm (130-400); Red Blood Count 3.79 10^6/uL (4.1-5.3); Red Cell Distribution Width 15.5 % (12.1-15.1); White Blood Count 5.1 10^3/uL (4.0-10.0)
[2020-07-29] MEDS: ipratropium-albuterol 3 mL Neb INHALATION ×3 (02:39→20:12)
[2020-07-29 02:54] LABS: Alanine Aminotransferase < 5 U/L (0-41); Albumin Level 2.6 g/dL (3.5-5.2); Alkaline Phosphatase 73 IU/L (40-130); Anion Gap 20.1 (5-19); Aspartate Amino Transferase 20 U/L (0-40); Blood Urea Nitrogen 63 mg/dL (8-23); Calcium 8.6 mg/dL (8.5-10.5); Carbon Dioxide 23 mmol/L (22-29); Chloride 100 mmol/L (98-107); Globulin 2.4 g/dL (1.3-4.6); Glucose 78 mg/dL (65-115); Magnesium 1.8 mg/dL (1.7-2.3); Osmolality Calculated 305 mOsm/kg (285-295); Phosphorus 5.7 mg/dL (2.5-4.5); Potassium 4.1 mmol/L (3.5-5.1); Sodium 139 mmol/L (136-145); Total Bilirubin 0.3 mg/dL (0.15-1.2)
--- NOTE | 2020-07-29 07:17 | PM.ACPR ---
Procedure/Consent Time out: Time Out Performed: Yes Consent: Consent for Procedure: Consent obtained from other (indicate) (Family), Emergency procedure, Risks & Benefits reviewed and Agrees to proceed with procedure Additional Consent Information: Preoperative diagnosis: Acute renal failure requiring emergent dialysis Postoperative diagnosis: Same Procedure: Placement of Mahurkar catheter in the left femoral vein under ultrasound guidance Surgeon: Maurice Anesthesia: Local Description of procedure: The patient's right neck and chest was prepped and draped in a sterile manner. An ultrasound of the right internal jugular vein revealed a small femoral vein and there was surrounding subcutaneous hematoma. An ultrasound of the left femoral vein revealed patent veins with no evidence of thrombus. 5 mL of 1% lidocaine was infiltrated at the site of planned entry, an introducer needle was used to access the left femoral vein under ultrasound guidance. Guidewire was passed through the introducer needle and the introducer needle was removed. Serial dilators were passed over the guidewire after the skin incision was extended using 11 blade and Mahurkar catheter was then passed over the guidewire and the guidewire was removed. The catheter was sutured to the skin using 2-0 Ethilon suture. Sterile dressings were applied. Acute Procedures Epistaxis Control: Time out performed: Yes
--- NOTE | 2020-07-29 07:21 | PM.CONSULT ---
Providers/Reason For Consult Consulting Physican/Specialty*: Coy Peguero Reason for Consult*: dialysis catheter Attending Physician: Coy Peguero MD Primary Care Provider: Maricarmen Meza MD History of Present Illness History of Present Illness Good Alegre is a 80 year old male with multiple comorbidities admitted to the hospital on 07/11/2020 after he had previously been treated for COVID-19 and subsequent bacterial pneumonia. He subsequently had a left hip fracture for which he underwent ORIF on 07/10. Patient is a longstanding history of chronic renal insufficiency has now developed acute renal failure. Extensive discussions were held with the patient's family and they are not sure about long-term dialysis and therefore they would like to proceed with a trial of temporary dialysis to see if it makes a difference. Review of Systems General: Reports: ROS unobtainable due to mental status Meds/Allergies Home Medications and Allergies Home Medications Medication Instructions Recorded Confirmed Last Taken Type ondansetron HCl 4 mg tablet 4 mg PO BID PRN #30 tab 10/18/19 07/10/20 Unknown Rx cyanocobalamin (vitamin B-12) 1,000 mcg PO DAILY 06/15/20 07/10/20 07/08/20 History [Vitamin B-12] mirtazapine 30 mg PO BEDTIME 06/15/20 07/10/20 07/09/20 History sucralfate [Carafate] 1 gm PO BID #60 tab 06/18/20 07/10/20 07/09/20 Rx fluticasone propion-salmeterol 1 puff INHALATION BID.RESPIRATORY 06/24/20 07/10/20 07/09/20 Rx [Advair Diskus] #1 ea prednisone 20 mg PO DAILY #30 tab 06/24/20 07/10/20 07/09/20 Rx Enema Disposable 118 ml [place] DAILY PRN 07/07/20 07/10/20 Unknown History Tubersol See Rx Instructions .ROUTE .COMPLEX 07/07/20 07/10/20 07/09/20 History acetaminophen [Tylenol] 325 mg PO PRN PRN 07/07/20 07/10/20 Unknown History albuterol sulfate [ProAir HFA] 1 puff INHALATION QID 07/07/20 07/10/20 07/09/20 History bisacodyl 10 mg [place] DAILY PRN 07/07/20 07/10/20 Unknown History pravastatin 20 mg PO BEDTIME 07/07/20 07/10/20 07/09/20 History amlodipine 10 mg PO DAILY #30 tab 07/09/20 07/10/20 07/08/20 Rx hydralazine 25 mg PO TID #90 tab 07/09/20 07/10/20 07/09/20 Rx mycophenolate mofetil 500 mg PO BID #60 tab 07/09/20 07/10/20 07/09/20 Rx oxymetazoline [Afrin 4 spray NOSTRIL-R QID 2 Days ml 07/09/20 07/10/20 07/09/20 Rx (oxymetazoline)] pantoprazole 40 mg PO DAILY #30 tab 07/09/20 07/10/20 07/08/20 Rx sodium chloride [Saline Nose] 2 spray INTRANASAL TID #60 ml 07/09/20 07/10/20 07/09/20 Rx prednisone 5 mg PO DAILY 07/10/20 07/10/20 07/09/20 History Allergies Allergy/AdvReac Type Severity Reaction Status Date / Time No Known Allergies Allergy Verified 05/17/20 02:56 Current Medications Current Medications Generic Name Dose Route Start Last Admin Trade Name Freq PRN Reason Stop Dose Admin Acetaminophen 650 mg 07/10/20 13:05 07/27/20 21:51 Acetaminophen 325 Mg Tablet PO 650 mg Q6H PRN Administration Mild/Mod Pain Or Temp >/= 101 Albuterol/Ipratropium 3 ml 07/11/20 15:00 07/29/20 02:39 Duoneb INHALATION 3 ml Q6H.RESPIRATORY BLOSSOM Administration Amlodipine Besylate 2.5 mg 07/15/20 09:00 07/28/20 10:09 Norvasc PO Not Given DAILY BLOSS[facility] Atorvastatin Calcium 20 mg 07/10/20 21:00 07/28/20 22:54 Lipitor PO Not Given BEDTIME [facility] Benzonatate 100 mg 07/21/20 12:57 07/25/20 22:41 Benzonatate 100 Mg Capsule PO 100 mg TID PRN Administration COUGH Ergocalciferol 50,000 unit 07/16/20 09:00 07/23/20 11:50 Vitamin D2 PO Not Given Q7D [facility] Furosemide 60 mg 07/27/20 09:45 07/28/20 22:34 Furosemide 10 Mg/Ml Sdv 10ml IVP 60 mg Q12H [facility] Administration Guaifenesin/Dextromethorphan 5 ml 07/25/20 22:00 07/28/20 18:40 Guaifenesin-Dextromethorphan Udc 10 Ml PO Not Given BID [facility] Heparin Sodium (Beef Lung) 5,000 unit 07/23/20 16:00 07/27/20 04:57 Heparin 5,000 Unit/Ml Inj 1 Ml SUBCUT Not Given Q12H [facility] Hydralazine HCl 10 mg 07/23/20 15:45 07/27/20 08:14 Hydralazine 20 Mg/Ml Inj 1 Ml IVP 10 mg Q4H PRN Administration Blood pressure over 140 Imipenem/Cilastatin Sodium 250 100 mls @ 200 mls/hr 07/22/20 08:30 07/28/20 22:34 mg/ Sodium Chloride IV 200 mls/hr Q12H [facility] Administration Protocol Mirtazapine 30 mg 07/10/20 21:00 07/28/20 22:54 Remeron PO Not Given BEDTIME [facility] Ondansetron HCl 4 mg 07/11/20 10:25 07/28/20 22:40 Zofran IVP 4 mg Q4H PRN Administration NAUSEA AND VOMITING Pantoprazole Sodium 40 mg 07/11/20 09:00 07/28/20 10:10 Protonix PO Not Given DAILY [facility] Prednisone 10 mg 07/26/20 09:00 07/28/20 10:10 Prednisone 20 Mg Tablet PO Not Given DAILY [facility] Fluticasone/Salmeterol 1 puff 07/10/20 20:00 07/28/20 20:58 Advair Diskus 250-50 INHALATION Not Given BID.RESPIRATORY [facility] Sevelamer Carbonate 800 mg 07/26/20 15:00 07/28/20 22:53 Sevelamer 800 Mg Tablet PO Not Given TID [facility] Sodium Chloride 2 spray 07/10/20 21:00 07/28/20 22:35 [place] Nasal [place] NASAL Not Given TID BLOSSOM PFSH Acute PFSH: Medical History Anemia Chronic kidney disease, stage III (moderate) CRI (chronic renal insufficiency) Diarrhea Dyslipidemia Epistaxis Nasal packing removed with no evidence of rebleeding GERD (gastroesophageal reflux disease) Gout History of DVT (deep vein thrombosis) Hypertension Idiopathic parathyroidism Immunosuppression Inguinal hernia left 11/30/2016 Polyarteritis nodosa Skin cancer Vitamin D deficiency Surgical History H/O endoscopy History of hernia repair History of hip surgery Status post biopsy of kidney Family History Other Cancer Social History Smoking and tobacco status: never smoked Alcohol intake: never Marital status: Vitals/I&O/Wt Last Vital Signs Temp 98.2 F 07/29/20 04:24 Pulse 95 07/29/20 04:24 Resp 15 07/29/20 04:24 BP 143/88 07/29/20 04:24 Pulse Ox 92 07/29/20 04:24 07/28/20 07/29/20 07/29/20 22:59 06:59 14:59 Intake Total 40 / 260 Output Total 900 / 1100 200 / 1100 Balance -860 / -840 -200 / -840 Weight last 48 hrs Weight 138 lb 8 oz Weight 140 lb 1.6 oz Physical Exam Narrative: EXAM NARRATIVE: HEENT: Normocephalic Eye: Sclera /conjunctiva normal Abdomen: Soft to palpation, ecchymosis right groin from previous central line placement attempt Neurological: awake, doesn't follow commands Skin: Intact, no lesions appreciated on gross exam Urinary Catheter Management^: Lund: Cath Placed During This Visit: no Reason for Continuing Indwelling Catheter: Acute Urinary Retention or Obstruction A&P Assessment and plan (1) Acute kidney injury: 80-year-old male with acute on chronic renal failure requiring temporary dialysis. Patient cannot tolerate being placed in debulk position and therefore we will proceed with placement of dialysis catheter in the femoral vein. If the family eventually chooses to go on long-term dialysis then he will need a tunneled right IJ hemodialysis catheter Status: Acute Coding Level of Care Code Acute Appeals Analyst for [facility] Fwd Diagnoses Acute kidney injury N17.9
--- NOTE | 2020-07-29 12:35 | DCPLANNER ---
Phoned Pt's 's number and daughter; Melissa Carias answered the phone. She is familiar with the IM and appreciates the call.
--- NOTE | 2020-07-29 12:53 | P.PN_ITS ---
Subjective Subjective: Interval history: Mr. Alegre is seen and examined on dialysis today. He is tolerating the therapy well. He seems a little more lucid today. Still refusing medications a nd has a poor oral intake. High flow oxygen now transitioned to nasal cannula. Medications: Reviewed: Yes Medication Review Details: Current Medications Acetaminophen (Acetaminophen 325 Mg Tablet) 650 mg PO Q6H PRN PRN Reason: Mild/Mod Pain Or Temp >/= 101 Last Admin: 07/26/20 20:51 Dose: 650 mg Documented by: Albuterol/Ipratropium (Duoneb) 3 ml INHALATION Q6H.RESPIRATORY [facility]OSSOM Last Admin: 07/27/20 07:55 Dose: 3 ml Documented by: Amlodipine Besylate (Norvasc) 2.5 mg PO DAILY [facility] Last Admin: 07/27/20 08:13 Dose: 2.5 mg Documented by: Atorvastatin Calcium (Lipitor) 20 mg PO BEDTIME [facility] Last Admin: 07/26/20 21:00 Dose: Not Given Documented by: Benzonatate (Benzonatate 100 Mg Capsule) 100 mg PO TID PRN PRN Reason: COUGH Last Admin: 07/25/20 22:41 Dose: 100 mg Documented by: Ergocalciferol (Vitamin D2) 50,000 unit PO Q7D [facility] Last Admin: 07/23/20 11:50 Dose: Not Given Documented by: Guaifenesin/Dextromethorphan (Guaifenesin-Dextromethorphan Udc 10 Ml) 5 ml PO Q4H PRN PRN Reason: COUGH Guaifenesin/Dextromethorphan (Guaifenesin-Dextromethorphan Udc 10 Ml) 5 ml PO BID [facility] Last Admin: 07/27/20 08:29 Dose: Not Given Documented by: Heparin Sodium (Beef Lung) (Heparin 5,000 Unit/Ml Inj 1 Ml) 5,000 unit SUBCUT Q12H [facility] Last Admin: 07/27/20 04:57 Dose: Not Given Documented by: Hydralazine HCl (Hydralazine 20 Mg/Ml Inj 1 Ml) 10 mg IVP Q4H PRN PRN Reason: Blood pressure over 140 Last Admin: 07/27/20 08:14 Dose: 10 mg Documented by: Imipenem/Cilastatin Sodium 250 (mg/ Sodium Chloride) 100 mls @ 200 mls/hr IV Q12H [facility]; Protocol Last Admin: 07/27/20 01:11 Dose: 200 mls/hr Documented by: Vancomycin/PEG/[place]/Lysine/Water (Vancocin) 1,250 mg in 250 mls @ 200 mls/hr IV Q48H [facility] Last Admin: 07/26/20 13:25 Dose: 200 mls/hr Documented by: Labetalol HCl (Labetalol 5 Mg/Ml Sdv 20ml) 10 mg IVP PRN PRN PRN Reason: SBP GREATER THEN 160 Metoclopramide HCl (Reglan) 10 mg IVP ONCE PRN PRN Reason: N/V if zofran ineffective Mirtazapine (Remeron) 30 mg PO BEDTIME [facility] Last Admin: 07/26/20 21:00 Dose: Not Given Documented by: Ondansetron HCl (Zofran) 4 mg IVP Q4H PRN PRN Reason: NAUSEA AND VOMITING Last Admin: 07/23/20 15:08 Dose: 4 mg Documented by: Pantoprazole Sodium (Protonix) 40 mg PO DAILY [facility] Last Admin: 07/27/20 08:13 Dose: 40 mg Documented by: Prednisone (Prednisone 20 Mg Tablet) 10 mg PO DAILY [facility] Last Admin: 07/27/20 08:13 Dose: 10 mg Documented by: Fluticasone/Salmeterol (Advair Diskus 250-50) 1 puff INHALATION BID.RESPIRATORY [facility] Last Admin: 07/27/20 08:18 Dose: Not Given Documented by: Sevelamer Carbonate (Sevelamer 800 Mg Tablet) 800 mg PO TID [facility] Last Admin: 07/27/20 08:13 Dose: 800 mg Documented by: Sodium Chloride ([place] Nasal [place]) 2 spray NASAL TID [facility] Last Admin: 07/27/20 08:15 Dose: 2 spray Documented by: Vitals/I&O/Wt Last Vital Signs Temp 99.6 F 07/29/20 07:37 Pulse 85 07/29/20 07:37 Resp 20 H 07/29/20 07:37 BP 163/89 07/29/20 07:37 Pulse Ox 92 07/29/20 07:37 07/28/20 07/29/20 07/29/20 22:59 06:59 14:59 Intake Total 40 / 260 Output Total 900 / 900 200 / 1100 Balance -860 / -640 -200 / -840 Weight last 48 hrs Weight 62.823 kg Weight 63.548 kg Physical Exam Narrative: EXAM NARRATIVE: Constitutional: Awake, comfortable, drowsy HEENT: Wet mucosa, no jvp, non icteric Lungs: Bilaterally clear without discernible wheeze, rales in all lung zones CVS: S1 S2, no murmurs Abdo: Soft, BS ok Ext 4: Minimal edema, peripheral perfusion with no cyanosis Neurological: Grossly non-focal Urinary Catheter Management^: Lund: Cath Placed During This Visit: no Reason for Continuing Indwelling Catheter: Acute Urinary Retention or Obstruction Data : 07/29/20 02:15 07/29/20 02:15 A&P Additional A&P Information 1. CKD 4 with progressive renal dysfunction - Known P-ANCA since 2003 - Immunosuppressant therapy minimized now - Dialysis initiated 07/28, dialyzed again today I will plan on dialysis again tomorrow with progressively increasing prescription intensity. - Avoid usual nephrotoxic agents - Strict ins and outs 2. Pneumonia, currently on combination antibiotics with Primaxin and Vancocin - nasal cannula - titrate down as he tolerates 3. Chemistry looks well balanced Caesar Evangelista MD Nephrology [phone] Patient seen and examined via telemedicine, with the assistance of the bedside RN Attestations Medical Necessity Statement*: Eval for renal failure Coding Level of Care Code Acute Client Support Associate for [facility]
--- NOTE | 2020-07-29 13:21 | PC.OT ---
OT treatment attempted twice today. Pt declined both times. Will attempt again tomorrow. Co sign: NILS Brothers/Vladislav
[2020-07-29] MEDS: FUROsemide 10 mg/mL SDV 10mL 60 MG IVP (13:52)
--- NOTE | 2020-07-29 15:18 | P.PN_ITS ---
Subjective Subjective: Interval history: is extremely drowsy today.He has poor oral intake and have refused medications as well. He is spiking temp as well. Documented Urine out : 450 cc Labs reviewed. Medications: Reviewed: Yes Medication Review Details: Current Medications Acetaminophen (Acetaminophen 325 Mg Tablet) 650 mg PO Q6H PRN PRN Reason: Mild/Mod Pain Or Temp >/= 101 Last Admin: 07/26/20 20:51 Dose: 650 mg Documented by: Albuterol/Ipratropium (Duoneb) 3 ml INHALATION Q6H.RESPIRATORY BLOSSOM Last Admin: 07/27/20 07:55 Dose: 3 ml Documented by: Amlodipine Besylate (Norvasc) 2.5 mg PO DAILY BLOSSOM Last Admin: 07/27/20 08:13 Dose: 2.5 mg Documented by: Atorvastatin Calcium (Lipitor) 20 mg PO BEDTIME BLOSSOM Last Admin: 07/26/20 21:00 Dose: Not Given Documented by: Benzonatate (Benzonatate 100 Mg Capsule) 100 mg PO TID PRN PRN Reason: COUGH Last Admin: 07/25/20 22:41 Dose: 100 mg Documented by: Ergocalciferol (Vitamin D2) 50,000 unit PO Q7D BLOSSOM Last Admin: 07/23/20 11:50 Dose: Not Given Documented by: Guaifenesin/Dextromethorphan (Guaifenesin-Dextromethorphan Udc 10 Ml) 5 ml PO Q4H PRN PRN Reason: COUGH Guaifenesin/Dextromethorphan (Guaifenesin-Dextromethorphan Udc 10 Ml) 5 ml PO BID BLOSSOM Last Admin: 07/27/20 08:29 Dose: Not Given Documented by: Heparin Sodium (Beef Lung) (Heparin 5,000 Unit/Ml Inj 1 Ml) 5,000 unit SUBCUT Q 12H BLOSSOM Last Admin: 07/27/20 04:57 Dose: Not Given Documented by: Hydralazine HCl (Hydralazine 20 Mg/Ml Inj 1 Ml) 10 mg IVP Q4H PRN PRN Reason: Blood pressure over 140 Last Admin: 07/27/20 08:14 Dose: 10 mg Documented by: Imipenem/Cilastatin Sodium 250 (mg/ Sodium Chloride) 100 mls @ 200 mls/hr IV Q12H BLOSSOM; Protocol Last Admin: 07/27/20 01:11 Dose: 200 mls/hr Documented by: Vancomycin/PEG/NADA/Lysine/Water (Vancocin) 1,250 mg in 250 mls @ 200 mls/hr IV Q48H BLOSSOM Last Admin: 07/26/20 13:25 Dose: 200 mls/hr Documented by: Labetalol HCl (Labetalol 5 Mg/Ml Sdv 20ml) 10 mg IVP PRN PRN PRN Reason: SBP GREATER THEN 160 Metoclopramide HCl (Reglan) 10 mg IVP ONCE PRN PRN Reason: N/V if zofran ineffective Mirtazapine (Remeron) 30 mg PO BEDTIME [facility] Last Admin: 07/26/20 21:00 Dose: Not Given Documented by: Ondansetron HCl (Zofran) 4 mg IVP Q4H PRN PRN Reason: NAUSEA AND VOMITING Last Admin: 07/23/20 15:08 Dose: 4 mg Documented by: Pantoprazole Sodium (Protonix) 40 mg PO DAILY [facility] Last Admin: 07/27/20 08:13 Dose: 40 mg Documented by: Prednisone (Prednisone 20 Mg Tablet) 10 mg PO DAILY [facility] Last Admin: 07/27/20 08:13 Dose: 10 mg Documented by: Fluticasone/Salmeterol (Advair Diskus 250-50) 1 puff INHALATION BID.RESPIRATORY [facility] Last Admin: 07/27/20 08:18 Dose: Not Given Documented by: Sevelamer Carbonate (Sevelamer 800 Mg Tablet) 800 mg PO TID [facility] Last Admin: 07/27/20 08:13 Dose: 800 mg Documented by: Sodium Chloride ([place] Nasal [place]) 2 spray NASAL TID [facility] Last Admin: 07/27/20 08:15 Dose: 2 spray Documented by: Vitals/I&O/Wt Last Vital Signs Temp 99.6 F 07/29/20 07:37 Pulse 92 07/29/20 14:50 Resp 20 H 07/29/20 14:50 BP 170/96 07/29/20 12:00 Pulse Ox 96 07/29/20 14:50 07/29/20 07/29/20 07/29/20 06:59 14:59 22:59 Intake Total 100 / 360 Output Total 200 / 1100 Balance -100 / -740 Weight last 48 hrs Weight 62.823 kg Weight 63.548 kg Physical Exam Const: COMMON NORMALS: patient oriented x3 HENMT: COMMON NORMALS: normocephalic, atraumatic and external ears normal HEAD & SCALP: normocephalic and atraumatic EXTERNAL EAR: Yes external ears normal Eye: COMMON NORMALS: no scleral icterus GENERAL EYE: appearance normal, both eyes and all related structures Chest: COMMONS NORMALS: normal inspection of the chest and normal palpation of entire chest wall CHEST: Yes Symmetrical chest wall rise Resp: COMMON NORMALS: normal respiratory effort, No retractions and No use of accessory muscles EFFORT & INSPECTION: Yes symmetric chest movement AUSCULTATION: rales OTHER: B/L diffuse Crackles present in both lungs pereira. Cardio: COMMON NORMALS: regular rate, regular rhythm, S1 normal heart sound present, S2 normal heart sound present, No gallops present (Cardio), No murmurs present (Cardio), No rub (Cardio) and Peripheral pulses 2+ throughout RATE: regular rate and tachycardic RHYTHM: regular rhythm HEART SOUNDS: S1 normal heart sound present and S2 normal heart sound present PERIPHERAL PULSES: Peripheral pulses 2+ throughout GI: COMMON NORMALS: Normal to inspection, nondistended, normoactive bowel sounds present, Soft to palpation, non-tender, No hepatosplenomegaly present and no masses AUSCULTATION: Yes normoactive bowel sounds PALPATION: Yes Soft to palpation and Yes No hepatosplenomegaly present RECTAL EXAM: Yes deferred Extremity: COMMON NORMALS: no clubbing, cyanosis or edema and no pedal edema Neuro: COMMON NORMALS: patient oriented x3 Urinary Catheter Management^: Lund: Cath Placed During This Visit: no Reason for Continuing Indwelling Catheter: Acute Urinary Retention or Obstruction Data : 07/29/20 02:15 07/29/20 02:15 A&P Assessment and plan (1) Sepsis: Sepsis 2/2 to PNA/R/O PJP PNA as the patient is severly I.C had has severe hypoxemia.Though the suplemental o2 requirement has gone down with diuresis,abxs and H.D.He is still at risk for PJP PNA given his disease profile.If therapeutic dose of I.V bactrim is decided to to be discontinued for possible PJP PNA in a Non HIV Patient, then also he should be on PJP PPX medications. Patient is spiking Temp,tachycardic, tachypenic Swan culture ordered. Continue Van discontinued ( 07-24-07-29) Started Zyvox,caspofungin,Levofloxacin,TMP-SMX ( 07/29) Cotinue imipenam. Plan was to start Tigecycline as the patient is still spiking and have been on most of the above Abxs for good duration of time. Tigecycline is not available. Status: Acute (2) Uremic encephalopathy: Ac encephalopathy,( uremic,sepsis,hypoxic ) this am as he was drowsy lethargic, intermittent confusion . Plan:Continue H.D Status: Acute (3) Respiratory failure: Acute hypoxic respiratory failure secondary to pneumonia as well as Ac on Chronic HFpEF Exacerbation. Plan as #1 Continue IV diuresis. S/P Rt Thoracentesis :With Clear 600 cc pleural fluid aspirated. Pleural fluid sent for analysis. Supplemental oxygen requirement is going down Status: Acute (4) Heart failure: - Ac on Chronic HFpEF Exacerbation:: ( Echo (05/2020): EF=62%, mild concentric LVH, mild AR, trace MR, trace TR ). -Has crackles in both Lung pereira. -C.T Chest B/L PLeural effusion - I.V lasix 60 mg I.V Q12 H Daily. 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 Renal function unchanged -Nephrology consult appreciated -Had renal ultrasound done last month which showed markedly diminished ve locities in the renal arteries which may be suggestive of proximal stenosis, unfortunately cannot do CTA due to renal function. Repeat US shows small volume kidneys bilaterally with increased echogenicity consistent with chronic medical renal disease -urine lytes, repeat UA noted, CPK wnl, elevated PTH consistent with secondary hyperparathyroidism; low vitamin D indicating vitamin D deficiency, on supplementation -Follows up with nephrology (Dr. Earl Brown, ) at [facility] -off IVF; encourage oral hydration -has Lund catheter in place, continue to monitor Is & Os, assess daily for removal -decreased BP meds to increase renal perfusion -cellcept resumed at 500 mg BID (07/16), has been stopped. -steroids titrated -S/P 2 sessions of H.D. Status: Chronic Qualifiers: Chronic kidney disease stage 3 subtype: unspecified whether 3a or 3b Qualified Code(s): N18.30 - Chronic kidney disease, stage 3 unspecified (7) Anemia: -With episodes of R sided epistaxis that required packing on 07/08 -Has known history of anemia and has had prior GI work-up which per patient was negative for any acute bleeding source -Prior admission last month for severe anemia with hemoglobin as low as 4 and requirement of transfusion of blood products -s/p 1 unit with improvement in Hg up to 10 (06/15) -continue to monitor H/H closely; s/p 1 unit of PRBCs (07/15) with noted stabil ity thereafter -on IV iron, iron studies noted Status: Chronic Qualifiers: Anemia type: unspecified type Qualified Code(s): D64.9 - Anemia, unspecified (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 -Currently on heparin 5000 subcu every 12 hours. -Found to have right perineal vein thrombosis on venous duplex done on 05/16/20. Status: Acute Qualifiers: Affected thrombotic vein of extremity: unspecified vein of extremity Chronicity: chronic DVT location: lower extremity Laterality: unspecified laterality Qualified Code(s): I82.509 - Chronic embolism and thrombosis of unspecified deep veins of unspecified lower extremity Additional A&P Information -Treated for COVID-19 infection last month -Recurrent falls, generalized weakness, physical deconditioning, previously had rhabdomyolysis which resolved; PT evaluation appreciated, strict fall precautions -Known history of hypertension, on oral antihypertensives -GERD; on PPI and carafate -Hyperlipidemia; continue statin -Skin cancer affecting L ear; currently undergoing treatment -Very hard of hearing; hearing slightly better on the R -underlying cognitive impairment; reorient as needed -ST evaluation done due to noted difficulty swallowing; no overt aspiration noted, regular consistently recommended as well as crushing meds which patient has declined, he wants to take his medications whole -cardiac diet as tolerated -GI ppx with PPI -DVT ppx : On heparin -Dispo: [facility] -Code status: DNR/DNI -guarded prognosis due to multiple comorbid condition and impending renal failure. 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
[2020-07-29] MEDS: levofloxacin-dextrose 5 % 750 MG/150 ML PREMIX 100 MG IV (16:47)
--- NOTE | 2020-07-29 18:01 | PC.NURSE ---
i reported the temp to the nurse
[2020-07-29] MEDS: acetaminophen 650 mg Supp PR (18:22)
--- NOTE | 2020-07-29 18:49 | PC.NURSE ---
SHIFT SUMMARY PT HAS LEFT NASAL CANNULA IN ALL SHIFT, SITTING AT 4 LITERS NASAL CANNULA WITH OXYGEN SATURATION AT 95%. PT HAS NOT HAD AN APPETITE AND DID NOT TAKE PO MEDICATIONS. PT DID BEGIN TO SPIKE SOMEWHAT OF A FEVER BEFORE DIALYSIS AND THEN HAS BEEN AFEBRILE UNTIL THIS AFTERNOON AROUND 1600 WHICH HE WAS AT 101 AND PHYSICIAN WANTED US TO RECHECK IN AN HOUR. AT AN HOUR HE WAS AT 100, THEN APPROXIMATELY 1 HOUR LATER WAS 103.1, ORDER FOR TYLENOL IN WAS ORDERED AND ADMINISTERED PER DR COPELAND. PT HAD 1450 TAKEN OFF DURING DIALYSIS AND TOLERATED WELL PER RENITA LEWIS.
[2020-07-29] MEDS: linezolid premix 600 MG/300 ML PREMIX 300 MG IV (19:41)
[2020-07-30] VITALS (12 sets, daily range): BP systolic 133–153; BP diastolic 86–99; PULSE 80–101; RESP 15–24; TEMP 37.1–38.1; O2SAT 93–99
[2020-07-30] MEDS: FUROsemide 10 mg/mL SDV 10mL 60 MG IVP ×2 (00:20→12:43)
[2020-07-30 03:13] LABS: Basophils % 0.2 %; Eosinophils % 0.7 %; Hematocrit 32.2 % (42.0-52.0); Hemoglobin 9.8 g/dL (11.7-16.6); Lymphocytes # 0.2 10^3/uL (0.8-4.8); Lymphocytes % 4.5 %; Mean Corpuscular HGB Conc 30.4 g/dL (30.0-36.0); Mean Corpuscular Hemoglobin 28.2 pg (28.0-34.0); Mean Corpuscular Volume 92.8 fL (80-94); Mean Platelet Volume 11.1 fL (7.4-10.4); Neutrophils # 3.91 10^3/uL (1.8-7.7); Neutrophils % 93.1 %; Nucleated Red Blood Cells % 0 %; Platelet Count 86 10^3/cmm (130-400); Red Blood Count 3.47 10^6/uL (4.1-5.3); Red Cell Distribution Width 15.4 % (12.1-15.1); White Blood Count 4.2 10^3/uL (4.0-10.0)
[2020-07-30] MEDS: ipratropium-albuterol 3 mL Neb INHALATION ×3 (03:30→20:10)
[2020-07-30 03:42] LABS: Alanine Aminotransferase < 5 U/L (0-41); Albumin Level 2.3 g/dL (3.5-5.2); Alkaline Phosphatase 61 IU/L (40-130); Anion Gap 16.9 (5-19); Aspartate Amino Transferase 13 U/L (0-40); Blood Urea Nitrogen 43 mg/dL (8-23); Calcium 8.3 mg/dL (8.5-10.5); Carbon Dioxide 26 mmol/L (22-29); Chloride 100 mmol/L (98-107); Globulin 2.3 g/dL (1.3-4.6); Glucose 117 mg/dL (65-115); Osmolality Calculated 300 mOsm/kg (285-295); Potassium 3.9 mmol/L (3.5-5.1); Sodium 139 mmol/L (136-145); Total Bilirubin 0.2 mg/dL (0.15-1.2); Total Protein 4.6 g/dL (6.6-8.7)
[2020-07-30] MEDS: linezolid premix 600 MG/300 ML PREMIX 300 MG IV ×2 (06:08→18:35)
--- NOTE | 2020-07-30 07:32 | XR_ITS ---
WS: [id number] Exam: XR chest 1V portable [id number] Date/Time of Exam: 07/30/2020 7:46 AM Reason For Exam: pna Comparison 07/28/2020. Extensive bilateral interstitial and airspace infiltrates noted. No significant change since previous study. The lungs are fully expanded. No pleural effusions. A right-sided PICC line is in place endin g at the cavoatrial junction. Unremarkable cardiomediastinal silhouette and regional bony elements. XR/XR chest 1V portable [id number] IMPRESSION: 1. Bilateral pulmonary infiltrates unchanged.
--- NOTE | 2020-07-30 07:41 | PC.NURSE ---
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 Patients temperature is a little high. Reported to nurse.
--- NOTE | 2020-07-30 10:31 | PC.OT ---
per discussion at heart to heart rounds; physician Gato) ok with discharge of PT/OT due to multiple refusals and poor to no participation with therapy. Discharge skilled OT.
--- NOTE | 2020-07-30 12:10 | PM.PN ---
Subjective Subjective: Interval history: Mr. Aleger is seen and examined after dialysis today. Dialysis cut short due to power outage. He remains very drowsy Still refusing medications and has a poor oral intake. High flow oxygen now transitioned to nasal cannula. Medications: Reviewed: Yes Medication Review Details: Current Medications Acetaminophen (Acetaminophen 325 Mg Tablet) 650 mg PO Q6H PRN PRN Reason: Mild/Mod Pain Or Temp >/= 101 Last Admin: 07/26/20 20:51 Dose: 650 mg Documented by: Albuterol/Ipratropium (Duoneb) 3 ml INHALATION Q6H.RESPIRATORY BLOSSOM Last Admin: 07/27/20 07:55 Dose: 3 ml Documented by: Amlodipine Besylate (Norvasc) 2.5 mg PO DAILY BLOSSOM Last Admin: 07/27/20 08:13 Dose: 2.5 mg Documented by: Atorvastatin Calcium (Lipitor) 20 mg PO BEDTIME BLOSSOM Last Admin: 07/26/20 21:00 Dose: Not Given Documented by: Benzonatate (Benzonatate 100 Mg Capsule) 100 mg PO TID PRN PRN Reason: COUGH Last Admin: 07/25/20 22:41 Dose: 100 mg Documented by: Ergocalciferol (Vitamin D2) 50,000 unit PO Q7D BLOSSOM Last Admin: 07/23/20 11:50 Dose: Not Given Documented by: Guaifenesin/Dextromethorphan (Guaifenesin-Dextromethorphan Udc 10 Ml) 5 ml PO Q4H PRN PRN Reason: COUGH Guaifenesin/Dextromethorphan (Guaifenesin-Dextromethorphan Udc 10 Ml) 5 ml PO BID BLOSSOM Last Admin: 07/27/20 08:29 Dose: Not Given Documented by: Heparin Sodium (Beef Lung) (Heparin 5,000 Unit/Ml Inj 1 Ml) 5,000 unit SUBCUT Q12H BLOSSOM Last Admin: 07/27/20 04:57 Dose: Not Given Documented by: Hydralazine HCl (Hydralazine 20 Mg/Ml Inj 1 Ml) 10 mg IVP Q4H PRN PRN Reason: Blood pressure over 140 Last Admin: 07/27/20 08:14 Dose: 10 mg Documented by: Imipenem/Cilastatin Sodium 250 (mg/ Sodium Chloride) 100 mls @ 200 mls/hr IV Q12H BLOSSOM; Protocol Last Admin: 07/27/20 01:11 Dose: 200 mls/hr Documented by: Vancomycin/PEG/NADA/Lysine/Water (Vancocin) 1,250 mg in 250 mls @ 200 mls/hr IV Q48H BLOSSOM Last Admin: 07/26/20 13:25 Dose: 200 mls/hr Documented by: Labetalol HCl (Labetalol 5 Mg/Ml Sdv 20ml) 10 mg IVP PRN PRN PRN Reason: SBP GREATER THEN 160 Metoclopramide HCl (Reglan) 10 mg IVP ONCE PRN PRN Reason: N/V if zofran ineffective Mirtazapine (Remeron) 30 mg PO BEDTIME [facility] Last Admin: 07/26/20 21:00 Dose: Not Given Documented by: Ondansetron HCl (Zofran) 4 mg IVP Q4H PRN PRN Reason: NAUSEA AND VOMITING Last Admin: 07/23/20 15:08 Dose: 4 mg Documented by: Pantoprazole Sodium (Protonix) 40 mg PO DAILY [facility] Last Admin: 07/27/20 08:13 Dose: 40 mg Documented by: Prednisone (Prednisone 20 Mg Tablet) 10 mg PO DAILY [facility] Last Admin: 07/27/20 08:13 Dose: 10 mg Documented by: Fluticasone/Salmeterol (Advair Diskus 250-50) 1 puff INHALATION BID.RESPIRATORY [facility] Last Admin: 07/27/20 08:18 Dose: Not Given Documented by: Sevelamer Carbonate (Sevelamer 800 Mg Tablet) 800 mg PO TID [facility] Last Admin: 07/27/20 08:13 Dose: 800 mg Documented by: Sodium Chloride ([place] Nasal [place]) 2 spray NASAL TID [facility] Last Admin: 07/27/20 08:15 Dose: 2 spray Documented by: Vitals/I&O/Wt Last Vital Signs Temp 99.4 F 07/30/20 11:42 Pulse 98 07/30/20 11:42 Resp 17 07/30/20 11:42 BP 151/99 07/30/20 11:42 Pulse Ox 98 07/30/20 11:42 07/29/20 07/30/20 07/30/20 22:59 06:59 14:59 Intake Total 400 / 500 Output Total 250 / 250 300 / 550 Balance 150 / 250 -300 / -50 Weight last 48 hrs Weight 60.691 kg Weight 62.823 kg Physical Exam Narrative: EXAM NARRATIVE: Constitutional: Awake, comfortable, drowsy HEENT: Wet mucosa, no jvp, non icteric Lungs: Bilaterally clear without discernible wheeze, rales in all lung zones CVS: S1 S2, no murmurs Abdo: Soft, BS ok Ext 4: Minimal edema, peripheral perfusion with no cyanosis Neurological: Grossly non-focal Urinary Catheter Management^: Lund: Cath Placed During This Visit: no Reason for Continuing Indwelling Catheter: Acute Urinary Retention or Obstruction Data : 07/30/20 02:30 07/30/20 02:30 Micro: Microbiology 07/29/20 18:10 Blood Culture - Preliminary Blood SPECIMEN COLLECTED 07/29/20 18:05 Blood Culture - Preliminary Blood SPECIMEN COLLECTED A&P Additional A&P Information 1. CKD 4 with progressive renal dysfunction - Known P-ANCA since 2003 - Immunosuppressant therapy minimized now - Dialysis initiated 07/28, dialyzed yesterday and 3rd treatment cut short today - plan for dialysis in the am - if not recovering and the family wish to continue he will need a tunneled cath next week and outpatient set up - Avoid usual nephrotoxic agents - Strict ins and outs 2. Pneumonia, currently on combination antibiotics with Primaxin and Vancocin - nasal cannula - titrate down as he tolerates 3. 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
--- NOTE | 2020-07-30 15:54 | PM.PN ---
Subjective Subjective: Interval history: Patient was stable overnight, has been tolerating HD. Medications: Reviewed: Yes Medication Review Details: Current Medications Acetaminophen (Acetaminophen 325 Mg Tablet) 650 mg PO Q6H PRN PRN Reason: Mild/Mod Pain Or Temp >/= 101 Last Admin: 07/26/20 20:51 Dose: 650 mg Documented by: Albuterol/Ipratropium (Duoneb) 3 ml INHALATION Q6H.RESPIRATORY BLOSSOM Last Admin: 07/27/20 07:55 Dose: 3 ml Documented by: Amlodipine Besylate (Norvasc) 2.5 mg PO DAILY [facility] Last Admin: 07/27/20 08:13 Dose: 2.5 mg Documented by: Atorvastatin Calcium (Lipitor) 20 mg PO BEDTIME BLOSS[facility] Last Admin: 07/26/20 21:00 Dose: Not Given Documented by: Benzonatate (Benzonatate 100 Mg Capsule) 100 mg PO TID PRN PRN Reason: COUGH Last Admin: 07/25/20 22:41 Dose: 100 mg Documented by: Ergocalciferol (Vitamin D2) 50,000 unit PO Q7D [facility] Last Admin: 07/23/20 11:50 Dose: Not Given Documented by: Guaifenesin/Dextromethorphan (Guaifenesin-Dextromethorphan Udc 10 Ml) 5 ml PO Q4H PRN PRN Reason: COUGH Guaifenesin/Dextromethorphan (Guaifenesin-Dextromethorphan Udc 10 Ml) 5 ml PO BID [facility] Last Admin: 07/27/20 08:29 Dose: Not Given Documented by: Heparin Sodium (Beef Lung) (Heparin 5,000 Unit/Ml Inj 1 Ml) 5,000 unit SUBCUT Q12H [facility] Last Admin: 07/27/20 04:57 Dose: Not Given Documented by: Hydralazine HCl (Hydralazine 20 Mg/Ml Inj 1 Ml) 10 mg IVP Q4H PRN PRN Reason: Blood pressure over 140 Last Admin: 07/27/20 08:14 Dose: 10 mg Documented by: Imipenem/Cilastatin Sodium 250 (mg/ Sodium Chloride) 100 mls @ 200 mls/hr IV Q12H [facility]; Protocol Last Admin: 07/27/20 01:11 Dose: 200 mls/hr Documented by: Vancomycin/PEG/NADA/Lysine/Water (Vancocin) 1,250 mg in 250 mls @ 200 mls/hr IV Q48H [facility] Last Admin: 07/26/20 13:25 Dose: 200 mls/hr Documented by: Labetalol HCl (Labetalol 5 Mg/Ml Sdv 20ml) 10 mg IVP PRN PRN PRN Reason: SBP GREATER THEN 160 Metoclopramide HCl (Reglan) 10 mg IVP ONCE PRN PRN Reason: N/V if zofran ineffective Mirtazapine (Remeron) 30 mg PO BEDTIME [facility] Last Admin: 07/26/20 21:00 Dose: Not Given Documented by: Ondansetron HCl (Zofran) 4 mg IVP Q4H PRN PRN Reason: NAUSEA AND VOMITING Last Admin: 07/23/20 15:08 Dose: 4 mg Documented by: Pantoprazole Sodium (Protonix) 40 mg PO DAILY [facility] Last Admin: 07/27/20 08:13 Dose: 40 mg Documented by: Prednisone (Prednisone 20 Mg Tablet) 10 mg PO DAILY [facility] Last Admin: 07/27/20 08:13 Dose: 10 mg Documented by: Fluticasone/Salmeterol (Advair Diskus 250-50) 1 puff INHALATION BID.RESPIRATORY [facility] Last Admin: 07/27/20 08:18 Dose: Not Given Documented by: Sevelamer Carbonate (Sevelamer 800 Mg Tablet) 800 mg PO TID [facility] Last Admin: 07/27/20 08:13 Dose: 800 mg Documented by: Sodium Chloride ([place] Nasal [place]) 2 spray NASAL TID [facility] Last Admin: 07/27/20 08:15 Dose: 2 spray Documented by: Vitals/I&O/Wt Last Vital Signs Temp 99.7 F H 07/30/20 15:39 Pulse 85 07/30/20 15:39 Resp 17 07/30/20 15:39 BP 153/96 07/30/20 15:39 Pulse Ox 95 07/30/20 15:39 07/30/20 07/30/20 07/30/20 06:59 14:59 22:59 Intake Total 480 / 480 Output Total 300 / 550 Balance -300 / -50 480 / 480 Weight last 48 hrs Weight 60.691 kg Weight 62.823 kg Physical Exam Narrative: EXAM NARRATIVE: Sleeping Const: COMMON NORMALS: no acute distress and alert GENERAL APPEARANCE: cooperative and comfortable NUTRITIONAL APPEARANCE: thin ORIENTATION/CONSCIOUSNESS: Yes awake, Yes oriented to person, Yes oriented to place, Yes oriented to time and Yes confused HENMT: COMMON NORMALS: normocephalic, atraumatic, external ears normal and moist oral mucous membranes HEAD & SCALP: normocephalic and atraumatic GENERAL EAR: hearing grossly impaired (Hearing better on the right) EXTERNAL EAR: Yes external ears normal Eye: COMMON NORMALS: Equal, round and reactive pupils present, EOMs intact bilaterally, conjunctivae normal and no scleral icterus GENERAL EYE: appearance normal, both eyes and all related structures CONJUNCTIVA: Yes conjunctivae normal PUPIL: Yes Equal, round and reactive pupils present Neck/C-Spine: COMMON NORMALS: full ROM and supple GENERAL: Yes normal visual inspection and Yes trachea midline Chest: COMMONS NORMALS: normal inspection of the chest and normal palpation of entire chest wall CHEST: Yes Symmetrical chest wall rise Resp: COMMON NORMALS: normal respiratory effort, No retractions and No use of accessory muscles EFFORT & INSPECTION: Yes able to speak in complete sentences, Yes symmetric chest movement, Yes abnormal respiratory pattern, Yes tachypneic, Yes respiratory distress, Yes labored and Yes uses accessory muscles AUSCULTATION: crackles, rales, rhonchi, wheezes and diminished lung sounds OTHER: Decrease breath sound in bilateral bases. Cardio: COMMON NORMALS: regular rate, regular rhythm, S1 normal heart sound present, S2 normal heart sound present, No gallops present (Cardio), No murmurs present (Cardio), No rub (Cardio) and Peripheral pulses 2+ throughout RATE: regular rate and tachycardic RHYTHM: regular rhythm HEART SOUNDS: S1 normal heart sound present and S2 normal heart sound present PERIPHERAL PULSES: Peripheral pulses 2+ throughout GI: COMMON NORMALS: Normal to inspection, nondistended, normoactive bowel sounds present, Soft to palpation, non-tender, No hepatosplenomegaly present and no masses INSPECTION: No abdominal distension AUSCULTATION: Yes normoactive bowel sounds PALPATION: Yes Soft to palpation and Yes No hepatosplenomegaly present RECTAL EXAM: Yes deferred : COMMON NORMALS: Yes no CVA tenderness BLADDER/KIDNEY EXAM: Yes no CVA tenderness Back/Pelvis: COMMON NORMALS: no CVA tenderness Extremity: COMMON NORMALS: normal to inspection, full ROM, no clubbing, cyanosis or edema, no calf tenderness and no pedal edema NARRATIVE EXTREMITY EXAM: -clean dressing on lateral L hip, soft to palpation, no apparent hematoma Neuro: COMMON NORMALS: CN's II-XII intact bilaterally, moves all extremities, no focal motor deficits and no sensory deficits noted SENSORIUM/ORIENTATION: Yes alert, Yes oriented to person, Yes oriented to place and Yes oriented to time SPEECH: speech normal OTHER: -generally quite weak but motivated to participate in therapy Psych: COMMON NORMALS: mental status grossly normal, cooperative and speech normal SPEECH: Yes normal speech MOOD & AFFECT: Yes Flat affect present Skin: COMMON NORMALS: no rashes or lesions noted, no jaundice, no petechiae and no mottling NARRATIVE SKIN EXAM: -thin skin, scattered bruising on upper extremities GENERAL SKIN EXAM: no rashes or lesions noted Urinary Catheter Management^: [place]: Cath Placed During This Visit: no Reason for Continuing Indwelling Catheter: Acute Urinary Retention or Obstruction Data : 07/30/20 02:30 07/30/20 02:30 Micro: Microbiology 07/29/20 18:10 Blood Culture - Preliminary Blood SPECIMEN COLLECTED 07/29/20 18:05 Blood Culture - Preliminary Blood SPECIMEN COLLECTED A&P Assessment and plan (1) Sepsis: Status: Acute (2) Uremic encephalopathy: Status: Acute (3) Respiratory failure: Status: Acute (4) Heart failure: Status: Acute (5) Pneumonia: Status: Acute (6) Chronic kidney disease, stage III (moderate): Status: Chronic Qualifiers: Chronic kidney disease stage 3 subtype: unspecified whether 3a or 3b Qualified Code(s): N18.30 - Chronic kidney disease, stage 3 unspecified (7) Anemia: Status: Chronic Qualifiers: Anemia type: unspecified type Qualified Code(s): D64.9 - Anemia, unspecified (8) Polyarteritis nodosa: Status: Chronic (9) DVT (deep venous thrombosis): Status: Acute Qualifiers: Affected thrombotic vein of extremity: unspecified vein of extremity Chronicity: chronic DVT location: lower extremity Laterality: unspecified laterality Qualified Code(s): I82.509 - Chronic embolism and thrombosis of unspecified deep veins of unspecified lower extremity Additional A&P Information Fever suspected due to Pneumonia / ESBL UTI - T-max 103.1 - Chest x-ray - Bilateral pulmonary infiltrates - No leukocytosis - Recent Enterococcus Faecalis bacteremia 06/20 - Repeat Blcx 06/21, 07/11,- > negative - Blcx 06/28 - NGTD - Primaxin 250 mg IV q12hr on day 9 - Zyvox 600 mg IV q12hr on day 2 - Bactrim 314 mg IV Q24hr on day 2 - Capsofungin 50 mg IV q24hr day 2 - Levaquin 750 mg IV Q48HR on day 2 - No leukocytosis - Influenza A/B, Hepatitis panel, HIV, Anti-streptolysin ab, COVID 19 ag positive 06/15 - negative on 07/07. - Pleural fluid - 109, 5% PMN, total protein 2.1, LDH 331, glucose 81, chol 30. - MRSA negative - Will need CT Chest/Abdomen/Pelvis w/IV contrast due to persistent fever Acute on chronic stage 3 kidney disease - Progressed to advanced stage - on HD - Renal US - Small volume of kidneys bilateral - medical renal disease - Nephrology on board. - Femoral HD catherter in place - HD per Nephrology - will discuss need for ongoing HD Left femoral neck fracture - S/p [place] ASNIS 8.0 mm cannulated screws 07/11 Acute hypoxic respiratory failure with recent hx of COVID -19 infection / Bilateral Pleural effusion - Tx with remdesivir reecntly - Supplemental o2 as needed - S/p Thoracentesis on right - 1L drained 07/28 - Repeat chest x-ray - persistent b/l infiltrates. - Bronchodilator tx as needed - Will likely need o2 at discharge. 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 D 50,000 units Q7D - Sevelamer 800 mg PO TID Anemia of renal disease - With component of blood loss from epistaxis - Hb stable Hypertension - Norvasc 2.5 mg PO daily - Hydralazine/Labetalol PRN Dyslipidemia - Lipitor 20 mg PO daily Gout - Prednsione 10 mg po daily GERD - Protonix 40 mg PO daily -cardiac diet as tolerated -DVT ppx : On heparin -Dispo: [facility] -Code status: DNR/DNI -Guarded prognosis due to multiple comorbid condition and impending renal failure. Attestations Medical Necessity Statement*: Will require continued hospitalization for management of recurrent fevers, ongoing HD. Time Spent in Patient Care: Greater than 35 minutes (>than 50% of time spent in counselling and/or direct pt care on unit). Coding Level of Care Code Acute Grinder And Honer Operator Automatic for g Fwd Exam Comprehensive Diagnoses Sepsis A41.9 Uremic encephalopathy G93.49; N19 Respiratory failure J96.90 Heart failure I50.9 Pneumonia J18.9 Chronic kidney disease, stage III (moderate) N18.30 Chronic kidney disease stage 3 subtype: unspecified whether 3a or 3b Anemia D64.9 Anemia type: unspecified type Polyarteritis nodosa M30.0 DVT (deep venous thrombosis) I82.509 Affected thrombotic vein of extremity: unspecified vein of extremity Chronicity: chronic DVT location: lower extremity Laterality: unspecified laterality
--- NOTE | 2020-07-30 18:46 | PC.NURSE ---
SHIFT SUMMARY PT HAS REFUSED ALL MEDICATIONS, AND MEALS THIS SHIFT. PT HAS HAD ONE BM THIS SHIFT. DIALYSIS ONLY GOT 85ML OFF DUE TO POWER OUTAGE. PT IS STATING HE WANTS TO GO HOME AND WILL SAY HE WANTS TO GET UP OR EAT BUT WHEN YOU TRY TO GET HIM TO SIT UP OR BRING HIM FOOD HE REFUSES IT. PT IS REQUIRING 3 L NC.
[2020-07-30] MEDS: ondansetron 2 mg/ML SDV 2 mL 4 MG IVP (20:24)
[2020-07-31] VITALS (13 sets, daily range): BP systolic 129–138; BP diastolic 72–90; PULSE 84–100; RESP 17–22; TEMP 36.8–37.5; O2SAT 91–100
[2020-07-31] MEDS: ipratropium-albuterol 3 mL Neb INHALATION ×3 (03:15→20:35)
[2020-07-31] MEDS: linezolid premix 600 MG/300 ML PREMIX 300 MG IV (05:13)
--- NOTE | 2020-07-31 05:23 | PC.NURSE ---
Shift summary Patient would not take PO meds last night. I did get him to take his IV abx. He was nauseous at start of shift. He was given IV zofran and nausea subsided. He slept good through the night with no pain. Patient did want some water. He stated he had a hard time swallowing it and it goes all over him. He has not tried to drink anymore and denies it when given to him.
[2020-07-31 06:23] LABS: Basophils % 0.2 %; Eosinophils # 0.1 10^3/uL (0.0-0.8); Eosinophils % 1.7 %; Hematocrit 29.7 % (42.0-52.0); Hemoglobin 8.9 g/dL (11.7-16.6); Lymphocytes # 0.2 10^3/uL (0.8-4.8); Lymphocytes % 4.4 %; Mean Corpuscular Hemoglobin 28.1 pg (28.0-34.0); Mean Corpuscular Volume 93.7 fL (80-94); Mean Platelet Volume 10.6 fL (7.4-10.4); Monocytes # 0.1 10^3/uL (0.2-0.9); Monocytes % 1.7 %; Neutrophils # 4.35 10^3/uL (1.8-7.7); Neutrophils % 91.4 %; Nucleated Red Blood Cells % 0 %; Platelet Count 80 10^3/cmm (130-400); Red Blood Count 3.17 10^6/uL (4.1-5.3); White Blood Count 4.8 10^3/uL (4.0-10.0)
[2020-07-31 06:38] LABS: Alanine Aminotransferase < 5 U/L (0-41); Albumin Level 2.3 g/dL (3.5-5.2); Alkaline Phosphatase 62 IU/L (40-130); Anion Gap 12.8 (5-19); Aspartate Amino Transferase 14 U/L (0-40); Blood Urea Nitrogen 41 mg/dL (8-23); Calcium 7.9 mg/dL (8.5-10.5); Carbon Dioxide 29 mmol/L (22-29); Chloride 101 mmol/L (98-107); Glucose 90 mg/dL (65-115); Osmolality Calculated 298 mOsm/kg (285-295); Potassium 3.8 mmol/L (3.5-5.1); Sodium 139 mmol/L (136-145); Total Bilirubin 0.2 mg/dL (0.15-1.2); Total Protein 4.3 g/dL (6.6-8.7)
[2020-07-31 08:57] LABS: Slide Review Slide Review Perform
--- NOTE | 2020-07-31 10:18 | P.PN_ITS ---
Subjective Subjective: Interval history: No new issues, remains somnolent, refusing meds Oxygenating well on nasal cannula. Very weak, poorly interactive Dialysis cut short yesterday; will finish treatment today On going discussion of palliation Medications: Reviewed: Yes Medication Review Details: Current Medications Acetaminophen (Acetaminophen 325 Mg Tablet) 650 mg PO Q6H PRN PRN Reason: Mild/Mod Pain Or Temp >/= 101 Last Admin: 07/26/20 20:51 Dose: 650 mg Documented by: Albuterol/Ipratropium (Duoneb) 3 ml INHALATION Q6H.RESPIRATORY BLOSSOM Last Admin: 07/27/20 07:55 Dose: 3 ml Documented by: Amlodipine Besylate (Norvasc) 2.5 mg PO DAILY [facility] Last Admin: 07/27/20 08:13 Dose: 2.5 mg Documented by: Atorvastatin Calcium (Lipitor) 20 mg PO BEDTIME [facility] Last Admin: 07/26/20 21:00 Dose: Not Given Documented by: Benzonatate (Benzonatate 100 Mg Capsule) 100 mg PO TID PRN PRN Reason: COUGH Last Admin: 07/25/20 22:41 Dose: 100 mg Documented by: Ergocalciferol (Vitamin D2) 50,000 unit PO Q7D [facility] Last Admin: 07/23/20 11:50 Dose: Not Given Documented by: Guaifenesin/Dextromethorphan (Guaifenesin-Dextromethorphan Udc 10 Ml) 5 ml PO Q4H PRN PRN Reason: COUGH Guaifenesin/Dextromethorphan (Guaifenesin-Dextromethorphan Udc 10 Ml) 5 ml PO BID [facility] Last Admin: 07/27/20 08:29 Dose: Not Given Documented by: Heparin Sodium (Beef Lung) (Heparin 5,000 Unit/Ml Inj 1 Ml) 5,000 unit SUBCUT Q12H [facility] Last Admin: 07/27/20 04:57 Dose: Not Given Documented by: Hydralazine HCl (Hydralazine 20 Mg/Ml Inj 1 Ml) 10 mg IVP Q4H PRN PRN Reason: Blood pressure over 140 Last Admin: 07/27/20 08:14 Dose: 10 mg Documented by: Imipenem/Cilastatin Sodium 250 (mg/ Sodium Chloride) 100 mls @ 200 mls/hr IV Q12H [facility]; Protocol Last Admin: 07/27/20 01:11 Dose: 200 mls/hr Documented by: Vancomycin/PEG/[place]/Lysine/Water (Vancocin) 1,250 mg in 250 mls @ 200 mls/hr IV Q48H [facility] Last Admin: 07/26/20 13:25 Dose: 200 mls/hr Documented by: Labetalol HCl (Labetalol 5 Mg/Ml Sdv 20ml) 10 mg IVP PRN PRN PRN Reason: SBP GREATER THEN 160 Metoclopramide HCl (Reglan) 10 mg IVP ONCE PRN PRN Reason: N/V if zofran ineffective Mirtazapine (Remeron) 30 mg PO BEDTIME [facility] Last Admin: 07/26/20 21:00 Dose: Not Given Documented by: Ondansetron HCl (Zofran) 4 mg IVP Q4H PRN PRN Reason: NAUSEA AND VOMITING Last Admin: 07/23/20 15:08 Dose: 4 mg Documented by: Pantoprazole Sodium (Protonix) 40 mg PO DAILY [facility] Last Admin: 07/27/20 08:13 Dose: 40 mg Documented by: Prednisone (Prednisone 20 Mg Tablet) 10 mg PO DAILY [facility] Last Admin: 07/27/20 08:13 Dose: 10 mg Documented by: Fluticasone/Salmeterol (Advair Diskus 250-50) 1 puff INHALATION BID.RESPIRATORY [facility] Last Admin: 07/27/20 08:18 Dose: Not Given Documented by: Sevelamer Carbonate (Sevelamer 800 Mg Tablet) 800 mg PO TID [facility] Last Admin: 07/27/20 08:13 Dose: 800 mg Documented by: Sodium Chloride ([place] Nasal [place]) 2 spray NASAL TID [facility] Last Admin: 07/27/20 08:15 Dose: 2 spray Documented by: Vitals/I&O/Wt Last Vital Signs Temp 98.2 F 07/31/20 07:55 Pulse 92 07/31/20 07:55 Resp 18 07/31/20 07:55 BP 134/72 07/31/20 07:55 Pulse Ox 95 07/31/20 07:55 07/30/20 07/31/20 07/31/20 22:59 06:59 14:59 Intake Total 460 / 1340 Output Total 450 / 450 550 / 1000 Balance 10 / 890 -550 / 340 Weight last 48 hrs Weight 62.686 kg Weight 60.691 kg Physical Exam Narrative: EXAM NARRATIVE: Constitutional: Awake, comfortable, drowsy HEENT: Wet mucosa, no jvp, non icteric Lungs: Bilaterally clear without discernible wheeze, rales in all lung zones CVS: S1 S2, no murmurs Abdo: Soft, BS ok Ext 4: Minimal edema, peripheral perfusion with no cyanosis Neurological: Grossly non-focal Urinary Catheter Management^: [place]: Cath Placed During This Visit: no Reason for Continuing Indwelling Catheter: Acute Urinary Retention or Obstruction Data : 07/31/20 05:10 07/31/20 05:10 Micro: Microbiology 07/29/20 18:10 Blood Culture - Preliminary Blood NEGATIVE TO DATE 07/29/20 18:05 Blood Culture - Preliminary Blood NEGATIVE TO DATE A&P Additional A&P Information 1. 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 Pneumonia, currently on combination antibiotics with Primaxin and Vancocin - nasal cannula - titrate down as he tolerates 3. Chemistry looks well balanced - on going discussion of palliation; after several dialysis sessions he has still failed to really come out of this mental fog. His O2 needs have dropped but we have achieved little else. With this in mind transferring to hospice and stopping dialysis is appropriate. Will plan for dialysis while final discussions are taking place. Caesar Evangelista MD Nephrology [phone] Patient seen and examined via telemedicine, with the assistance of the bedside RN Attestations Medical Necessity Statement*: eval for BOOGIE Coding Level of Care Code Acute Industrial Sewer for Chg Joseph
--- NOTE | 2020-07-31 11:19 | PC.SOCIAL ---
IMM Updated Updated pt on Pg 2 IMM. Provided pt a copy. No questions voiced. Signed, dated, & timed copy in chart.
--- NOTE | 2020-07-31 11:33 | PM.PN ---
Subjective Subjective: Interval history: Patient was agitated this am, Refusing all PO meds. Refused lasix. Would not allow full examination. Continues to be confused. Medications: Reviewed: Yes Medication Review Details: Current Medications Acetaminophen (Acetaminophen 325 Mg Tablet) 650 mg PO Q6H PRN PRN Reason: Mild/Mod Pain Or Temp >/= 101 Last Admin: 07/26/20 20:51 Dose: 650 mg Documented by: Albuterol/Ipratropium (Duoneb) 3 ml INHALATION Q6H.RESPIRATORY BLOSSOM Last Admin: 07/27/20 07:55 Dose: 3 ml Documented by: Amlodipine Besylate (Norvasc) 2.5 mg PO DAILY [place] Last Admin: 07/27/20 08:13 Dose: 2.5 mg Documented by: Atorvastatin Calcium (Lipitor) 20 mg PO BEDTIME [facility] Last Admin: 07/26/20 21:00 Dose: Not Given Documented by: Benzonatate (Benzonatate 100 Mg Capsule) 100 mg PO TID PRN PRN Reason: COUGH Last Admin: 07/25/20 22:41 Dose: 100 mg Documented by: Ergocalciferol (Vitamin D2) 50,000 unit PO Q7D [place] Last Admin: 07/23/20 11:50 Dose: Not Given Documented by: Guaifenesin/Dextromethorphan (Guaifenesin-Dextromethorphan Udc 10 Ml) 5 ml PO Q4H PRN PRN Reason: COUGH Guaifenesin/Dextromethorphan (Guaifenesin-Dextromethorphan Udc 10 Ml) 5 ml PO BID BLOSSOM Last Admin: 07/27/20 08:29 Dose: Not Given Documented by: Heparin Sodium (Beef Lung) (Heparin 5,000 Unit/Ml Inj 1 Ml) 5,000 unit SUBCUT Q12H BLOSSOM Last Admin: 07/27/20 04:57 Dose: Not Given Documented by: Hydralazine HCl (Hydralazine 20 Mg/Ml Inj 1 Ml) 10 mg IVP Q4H PRN PRN Reason: Blood pressure over 140 Last Admin: 07/27/20 08:14 Dose: 10 mg Documented by: Imipenem/Cilastatin Sodium 250 (mg/ Sodium Chloride) 100 mls @ 200 mls/hr IV Q12H BLOSSOM; Protocol Last Admin: 07/27/20 01:11 Dose: 200 mls/hr Documented by: Vancomycin/PEG/NADA/Lysine/Water (Vancocin) 1,250 mg in 250 mls @ 200 mls/hr IV Q48H [facility] Last Admin: 07/26/20 13:25 Dose: 200 mls/hr Documented by: Labetalol HCl (Labetalol 5 Mg/Ml Sdv 20ml) 10 mg IVP PRN PRN PRN Reason: SBP GREATER THEN 160 Metoclopramide HCl (Reglan) 10 mg IVP ONCE PRN PRN Reason: N/V if zofran ineffective Mirtazapine (Remeron) 30 mg PO BEDTIME [facility] Last Admin: 07/26/20 21:00 Dose: Not Given Documented by: Ondansetron HCl (Zofran) 4 mg IVP Q4H PRN PRN Reason: NAUSEA AND VOMITING Last Admin: 07/23/20 15:08 Dose: 4 mg Documented by: Pantoprazole Sodium (Protonix) 40 mg PO DAILY [facility] Last Admin: 07/27/20 08:13 Dose: 40 mg Documented by: Prednisone (Prednisone 20 Mg Tablet) 10 mg PO DAILY [facility] Last Admin: 07/27/20 08:13 Dose: 10 mg Documented by: Fluticasone/Salmeterol (Advair Diskus 250-50) 1 puff INHALATION BID.RESPIRATORY [facility] Last Admin: 07/27/20 08:18 Dose: Not Given Documented by: Sevelamer Carbonate (Sevelamer 800 Mg Tablet) 800 mg PO TID [facility] Last Admin: 07/27/20 08:13 Dose: 800 mg Documented by: Sodium Chloride ([place] Nasal [place]) 2 spray NASAL TID [facility] Last Admin: 07/27/20 08:15 Dose: 2 spray Documented by: Vitals/I&O/Wt Last Vital Signs Temp 98.2 F 07/31/20 07:55 Pulse 84 07/31/20 10:21 Resp 18 07/31/20 10:11 BP 134/72 07/31/20 07:55 Pulse Ox 96 07/31/20 10:11 07/30/20 07/31/20 07/31/20 22:59 06:59 14:59 Intake Total 460 / 1340 Output Total 450 / 450 550 / 1000 Balance -550 / 340 Weight last 48 hrs Weight 62.686 kg Weight 60.691 kg Physical Exam Narrative: EXAM NARRATIVE: Sleeping Const: COMMON NORMALS: no acute distress and alert GENERAL APPEARANCE: cooperative and comfortable NUTRITIONAL APPEARANCE: thin ORIENTATION/CONSCIOUSNESS: Yes awake, Yes oriented to person, Yes oriented to place, Yes oriented to time and Yes confused HENMT: COMMON NORMALS: normocephalic, atraumatic, external ears normal and moist oral mucous membranes HEAD & SCALP: normocephalic and atraumatic GENERAL EAR: hearing grossly impaired (Hearing better on the right) EXTERNAL EAR: Yes external ears normal Eye: COMMON NORMALS: Equal, round and reactive pupils present, EOMs intact bilaterally, conjunctivae normal and no scleral icterus GENERAL EYE: appearance normal, both eyes and all related structures CONJUNCTIVA: Yes conjunctivae normal PUPIL: Yes Equal, round and reactive pupils present Neck/C-Spine: COMMON NORMALS: full ROM and supple GENERAL: Yes normal visual inspection and Yes trachea midline Chest: COMMONS NORMALS: normal inspection of the chest and normal palpation of entire chest wall CHEST: Yes Symmetrical chest wall rise Resp: COMMON NORMALS: normal respiratory effort, No retractions and No use of accessory muscles EFFORT & INSPECTION: Yes able to speak in complete sentences, Yes symmetric chest movement, Yes abnormal respiratory pattern, Yes tachypneic, Yes respiratory distress, Yes labored and Yes uses accessory muscles AUSCULTATION: crackles, rales, rhonchi, wheezes and diminished lung sounds OTHER: Decrease breath sound in bilateral bases. Cardio: COMMON NORMALS: regular rate, regular rhythm, S1 normal heart sound present, S2 normal heart sound present, No gallops present (Cardio), No murmurs present (Cardio), No rub (Cardio) and Peripheral pulses 2+ throughout RATE: regular rate and tachycardic RHYTHM: regular rhythm HEART SOUNDS: S1 normal heart sound present and S2 normal heart sound present PERIPHERAL PULSES: Peripheral pulses 2+ throughout GI: COMMON NORMALS: Normal to inspection, nondistended, normoactive bowel sounds present, Soft to palpation, non-tender, No hepatosplenomegaly present and no masses INSPECTION: No abdominal distension AUSCULTATION: Yes normoactive bowel sounds PALPATION: Yes Soft to palpation and Yes No hepatosplenomegaly present RECTAL EXAM: Yes deferred : COMMON NORMALS: Yes no CVA tenderness BLADDER/KIDNEY EXAM: Yes no CVA tenderness Back/Pelvis: COMMON NORMALS: no CVA tenderness Extremity: COMMON NORMALS: normal to inspection, full ROM, no clubbing, cyanosis or edema, no calf tenderness and no pedal edema NARRATIVE EXTREMITY EXAM: -clean dressing on lateral L hip, soft to palpation, no apparent hematoma Neuro: COMMON NORMALS: CN's II-XII intact bilaterally, moves all extremities, no focal motor deficits and no sensory deficits noted SENSORIUM/ORIENTATION: Yes alert, Yes oriented to person, Yes oriented to place and Yes oriented to time SPEECH: speech normal OTHER: -generally quite weak but motivated to participate in therapy Psych: COMMON NORMALS: mental status grossly normal, cooperative and speech normal SPEECH: Yes normal speech MOOD & AFFECT: Yes Flat affect present Skin: COMMON NORMALS: no rashes or lesions noted, no jaundice, no petechiae and no mottling NARRATIVE SKIN EXAM: -thin skin, scattered bruising on upper extremities GENERAL SKIN EXAM: no rashes or lesions noted Urinary Catheter Management^: [place]: Cath Placed During This Visit: no Reason for Continuing Indwelling Catheter: Acute Urinary Retention or Obstruction Data : 07/31/20 05:10 07/31/20 05:10 Micro: Microbiology 07/30/20 07:34 Urine Culture - Preliminary Urine Catheterized Yeast 07/29/20 18:10 Blood Culture - Preliminary Blood NEGATIVE TO DATE 07/29/20 18:05 Blood Culture - Preliminary Blood NEGATIVE TO DATE A&P Assessment and plan (1) Sepsis: Status: Acute (2) Uremic encephalopathy: Status: Acute (3) Respiratory failure: Status: Acute (4) Heart failure: Status: Acute (5) Pneumonia: Plan as # 1 Monitor Xray Status: Acute (6) Chronic kidney disease, stage III (moderate): Status: Chronic Qualifiers: Chronic kidney disease stage 3 subtype: unspecified whether 3a or 3b Qualified Code(s): N18.30 - Chronic kidney disease, stage 3 unspecified (7) Anemia: Status: Chronic Qualifiers: Anemia type: unspecified type Qualified Code(s): D64.9 - Anemia, unspecified (8) Polyarteritis nodosa: Status: Chronic (9) DVT (deep venous thrombosis): Status: Acute Qualifiers: Affected thrombotic vein of extremity: unspecified vein of extremity Chronicity: chronic DVT location: lower extremity Laterality: unspecified laterality Qualified Code(s): I82.509 - Chronic embolism and thrombosis of unspecified deep veins of unspecified lower extremity Additional A&P Information Fever suspected due to Pneumonia / ESBL UTI - T-max 100.6 - Chest x-ray - Bilateral pulmonary infiltrates - No leukocytosis - Recent Enterococcus Faecalis bacteremia 06/20 - Repeat Blcx 06/21, 07/11,- > negative - Blcx 06/28 - NGTD - Primaxin 250 mg IV q12hr on day 10 - Zyvox 600 mg IV q12hr on day 3 - Bactrim 314 mg IV Q24hr on day 3 - Capsofungin 50 mg IV q24hr day 3 - Levaquin 750 mg IV Q48HR on day 3 - No leukocytosis, - Influenza A/B, Hepatitis panel, HIV, Anti-streptolysin ab, COVID 19 ag positive 06/15 - negative on 07/07. - Pleural fluid - 109, 5% PMN, total protein 2.1, LDH 331, glucose 81, chol 30. Does not appear that pleural fluid was sent for culture - MRSA negative - Will obtain CT Chest/Abdomen/Pelvis wo/IV contrast due to persistent fever - Antibiotics Above stopped, no clear source of infection - Will obtain viral respiratory panel - Is at risk for PCP pneumonia - Will continue bactrium Acute on chronic stage 3 kidney disease - Started on HD due to suspected uremic encephalopathy - Renal US - Small volume of kidneys bilateral - medical renal disease - Nephrology on board. - Femoral HD catherter in place - HD per Nephrology - will discuss need for ongoing HD - Did not complete HD yesterday. Will plan to complete today Left femoral neck fracture - S/p [place] ASNIS 8.0 mm cannulated screws 07/11 Acute hypoxic respiratory failure with recent hx of COVID -19 infection / Bilateral Pleural effusion - Tx with remdesivir reecntly - Supplemental o2 as needed - S/p Thoracentesis on right - 1L drained 07/28 - Repeat chest x-ray - persistent b/l infiltrates. - Bronchodilator tx as needed - Will likely need o2 at discharge. Acute on Chronic HFpEF Exacerbation - Echo (05/2020): EF=62%, mild concentric LVH, mild AR, trace MR, trace TR - Has crackles in both Lung pereira. - C.T Chest B/L PLeural effusion s/p thoracentesis as noted above. 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 D 50,000 units Q7D - Sevelamer 800 mg PO TID Anemia of renal disease - With component of blood loss from epistaxis - Hb stable Hypertension - Norvasc 2.5 mg PO daily - Hydralazine/Labetalol PRN Dyslipidemia - Lipitor 20 mg PO daily Gout - Prednsione 10 mg po daily GERD - Protonix 40 mg PO daily -cardiac diet as tolerated -DVT ppx : On heparin 5000 bid -Dispo: [facility] [place] -Code status: DNR/DNI -Guarded prognosis due to multiple comorbid condition and impending renal failure. Will d/w family regarding senior living care plan. Unfortunately due to poor prognosis may need to consider hospice Attestations Medical Necessity Statement*: Will require continued hospitalization for management of respiratory failure, HD, and persistent fever. 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
--- NOTE | 2020-07-31 11:38 | CTR_ITS ---
PROCEDURE INFORMATION: Exam: CT Chest Without Contrast; Diagnostic Exam date and time: 07/31/2020 7:24 PM Age: 80 years old Clinical indication: Fever; Prior surgery; Surgery date: <1 month; Surgery type: 3 week sp hip fx/sx, hernia, renal bx; Additional info: Persistent fever, unclear source TECHNIQUE: Imaging protocol: Diagnostic computed tomography of the chest without contrast. Radiation optimization: All CT scans at this facility use at least one of these dose optimization techniques: automated exposure control; mA and/or kV adjustment per patient size (includes targeted exams where dose is matched to clinical indication); or iterative reconstruction. COMPARISON: CT chest wo con [id number] 07/22/2020 10:46 AM RADIATION DOSE METRICS: Total DLP (mGy-cm): 1273.7 FINDINGS: Tubes, catheters and devices: There is a right subclavian PICC line with tip in the superior vena cava. Lungs: There is mild improvement in the diffuse airspace density, which may represent pneumonia, pulmonary edema, or inflammatory pneumonitis such as ARDS. Severe emphysematous changes are noted. Pleural space: There is unchanged moderate size left pleural effusion and small right pleural effusion. Heart: The heart is enlarged. There is a small pericardial fluid collection present. Aorta: Unremarkable. No aortic aneurysm. Lymph nodes: Unremarkable. No enlarged lymph nodes. Bones/joints: Unremarkable. No acute fracture. Soft tissues: There is diffuse induration of the subcutaneous fat and mesenteric fat compatible with anasarca type changes. IMPRESSION: 1. There is mild improvement in the diffuse airspace density, which may represent pneumonia, pulmonary edema, or inflammatory pneumonitis such as ARDS. There are bilateral pleural effusions. 2. There is diffuse induration of the subcutaneous fat and mesenteric fat compatible with anasarca type changes. PROCEDURE INFORMATION: Exam: CT Abdomen And Pelvis Without Contrast Exam date and time: 07/31/2020 7:24 PM Age: 80 years old Clinical indication: Fever; Prior surgery; Surgery date: <1 month; Surgery type: 3 week sp hip fx/sx, hernia, renal bx; Additional info: Persistent fever, unclear source TECHNIQUE: Imaging protocol: Computed tomography of the abdomen and pelvis without contrast. Radiation optimization: All CT scans at this facility use at least one of these dose optimization techniques: automated exposure control; mA and/or kV adjustment per patient size (includes targeted exams where dose is matched to clinical indication); or iterative reconstruction. COMPARISON: CT chest wo con [id number] 07/22/2020 10:46 AM RADIATION DOSE METRICS: Total DLP (mGy-cm): 1273.7 FINDINGS: Tubes, catheters and devices: A balloon bladder catheter is present. Liver: Several liver cysts are noted. Gallbladder and bile ducts: Normal. No calcified stones. No ductal dilation. Pancreas: Normal. No ductal dilation. Spleen: Normal. No splenomegaly. Adrenal glands: Normal. No mass. Kidneys and ureters: There is no evidence of hydronephrosis. There is no evidence of renal calcifications. There is a 2.9 cm lower pole simple cyst in the right kidney. No follow-up is necessary. Stomach and bowel: There is moderately excessive colonic stool content. There is no evidence of colitis/diverticulitis. Appendix: No evidence of appendicitis. Intraperitoneal space: There is no free intraperitoneal air. No loculated intraperitoneal fluid collection or abscess. There is a small amount of ascites compatible with anasarca. Vasculature: The aorta demonstrates moderate atherosclerotic calcification. Lymph nodes: Unremarkable.No enlarged lymph nodes. Urinary bladder: The bladder is decompressed. Reproductive: Unremarkable as visualized. Bones/joints: Postoperative changes in the pelvis and old pelvic and left hip fracture deformities are noted. There are diffuse degenerative changes but no acute bony abnormality is identified. Soft tissues: There is diffuse induration of the subcutaneous fat and mesenteric fat compatible with anasarca type changes. Other findings: The exam is very limited by extensive motion artifact. CT/CT chest abd pel wo con IMPRESSION: 1. No bowel thickening or inflammatory changes. No hydronephrosis. 2. There is diffuse induration of the subcutaneous fat and mesenteric fat compatible with anasarca type changes. COMMENTS: Consistent with the [employer]'s Incidental Findings Committee white paper (J Am Mickey Radiol 2018): Any incidental renal lesion less than 1 cm or classified as too small to characterize, or any incidental cystic renal lesion characterized as simple-appearing, is likely benign. No follow-up imaging is recommended for these lesions per consensus recommendations based on imaging criteria. Radiation Dose CTDIVOL = (mGy): DLP = 1273.7~1273.7 (mGy-cm)
[2020-07-31] MEDS: FUROsemide 10 mg/mL SDV 10mL 60 MG IVP (14:05)
[2020-07-31] MEDS: morphine 4 mg/mL SDV 1 mL 2 MG IVP (18:34)
[2020-08-01] VITALS (11 sets, daily range): BP systolic 133–146; BP diastolic 85–88; PULSE 85–97; RESP 16–22; TEMP 36.8–37.8; O2SAT 94–98
[2020-08-01] MEDS: FUROsemide 10 mg/mL SDV 10mL 60 MG IVP ×2 (01:32→12:28)
[2020-08-01] MEDS: ipratropium-albuterol 3 mL Neb INHALATION ×3 (03:36→20:51)
--- NOTE | 2020-08-01 11:48 | PM.PN ---
Subjective Subjective: Interval history: Overall condition is unchanged On oxygen Afebrile Medications: Reviewed: Yes Medication Review Details: Current Medications Acetaminophen (Acetaminophen 325 Mg Tablet) 650 mg PO Q6H PRN PRN Reason: Mild/Mod Pain Or Temp >/= 101 Last Admin: 07/26/20 20:51 Dose: 650 mg Documented by: Albuterol/Ipratropium (Duoneb) 3 ml INHALATION Q6H.RESPIRATORY BLOSSOM Last Admin: 07/27/20 07:55 Dose: 3 ml Documented by: Amlodipine Besylate (Norvasc) 2.5 mg PO DAILY [facility] Last Admin: 07/27/20 08:13 Dose: 2.5 mg Documented by: Atorvastatin Calcium (Lipitor) 20 mg PO BEDTIME [facility] Last Admin: 07/26/20 21:00 Dose: Not Given Documented by: Benzonatate (Benzonatate 100 Mg Capsule) 100 mg PO TID PRN PRN Reason: COUGH Last Admin: 07/25/20 22:41 Dose: 100 mg Documented by: Ergocalciferol (Vitamin D2) 50,000 unit PO Q7D [facility] Last Admin: 07/23/20 11:50 Dose: Not Given Documented by: Guaifenesin/Dextromethorphan (Guaifenesin-Dextromethorphan Udc 10 Ml) 5 ml PO Q4H PRN PRN Reason: COUGH Guaifenesin/Dextromethorphan (Guaifenesin-Dextromethorphan Udc 10 Ml) 5 ml PO BID [facility] Last Admin: 07/27/20 08:29 Dose: Not Given Documented by: Heparin Sodium (Beef Lung) (Heparin 5,000 Unit/Ml Inj 1 Ml) 5,000 unit SUBCUT Q12H [facility] Last Admin: 07/27/20 04:57 Dose: Not Given Documented by: Hydralazine HCl (Hydralazine 20 Mg/Ml Inj 1 Ml) 10 mg IVP Q4H PRN PRN Reason: Blood pressure over 140 Last Admin: 07/27/20 08:14 Dose: 10 mg Documented by: Imipenem/Cilastatin Sodium 250 (mg/ Sodium Chloride) 100 mls @ 200 mls/hr IV Q12H [facility]; Protocol Last Admin: 07/27/20 01:11 Dose: 200 mls/hr Documented by: Vancomycin/PEG/NADA/Lysine/Water (Vancocin) 1,250 mg in 250 mls @ 200 mls/hr IV Q48H BLOSSOM Last Admin: 07/26/20 13:25 Dose: 200 mls/hr Documented by: Labetalol HCl (Labetalol 5 Mg/Ml Sdv 20ml) 10 mg IVP PRN PRN PRN Reason: SBP GREATER THEN 160 Metoclopramide HCl (Reglan) 10 mg IVP ONCE PRN PRN Reason: N/V if zofran ineffective Mirtazapine (Remeron) 30 mg PO BEDTIME [facility] Last Admin: 07/26/20 21:00 Dose: Not Given Documented by: Ondansetron HCl (Zofran) 4 mg IVP Q4H PRN PRN Reason: NAUSEA AND VOMITING Last Admin: 07/23/20 15:08 Dose: 4 mg Documented by: Pantoprazole Sodium (Protonix) 40 mg PO DAILY [facility] Last Admin: 07/27/20 08:13 Dose: 40 mg Documented by: Prednisone (Prednisone 20 Mg Tablet) 10 mg PO DAILY [facility] Last Admin: 07/27/20 08:13 Dose: 10 mg Documented by: Fluticasone/Salmeterol (Advair Diskus 250-50) 1 puff INHALATION BID.RESPIRATORY [facility] Last Admin: 07/27/20 08:18 Dose: Not Given Documented by: Sevelamer Carbonate (Sevelamer 800 Mg Tablet) 800 mg PO TID [facility] Last Admin: 07/27/20 08:13 Dose: 800 mg Documented by: Sodium Chloride ([place] Nasal [place]) 2 spray NASAL TID [facility] Last Admin: 07/27/20 08:15 Dose: 2 spray Documented by: Vitals/I&O/Wt Last Vital Signs Temp 98.7 F 08/01/20 11:23 Pulse 97 08/01/20 11:23 Resp 16 08/01/20 11:23 BP 145/88 08/01/20 11:23 Pulse Ox 97 08/01/20 11:23 07/31/20 08/01/20 08/01/20 22:59 06:59 14:59 Output Total 400 / 400 475 / 875 Balance -400 / -400 -475 / -875 Weight last 48 hrs Weight 55.973 kg Weight 62.686 kg Physical Exam Narrative: EXAM NARRATIVE: Sleeping Const: COMMON NORMALS: no acute distress and alert GENERAL APPEARANCE: cooperative and comfortable NUTRITIONAL APPEARANCE: thin ORIENTATION/CONSCIOUSNESS: Yes awake, Yes oriented to person, Yes oriented to place, Yes oriented to time and Yes confused HENMT: COMMON NORMALS: normocephalic, atraumatic, external ears normal and moist oral mucous membranes HEAD & SCALP: normocephalic and atraumatic GENERAL EAR: hearing grossly impaired (Hearing better on the right) EXTERNAL EAR: Yes external ears normal Eye: COMMON NORMALS: Equal, round and reactive pupils present, EOMs intact bilaterally, conjunctivae normal and no scleral icterus GENERAL EYE: appearance normal, both eyes and all related structures CONJUNCTIVA: Yes conjunctivae normal PUPIL: Yes Equal, round and reactive pupils present Neck/C-Spine: COMMON NORMALS: full ROM and supple GENERAL: Yes normal visual inspection and Yes trachea midline Chest: COMMONS NORMALS: normal inspection of the chest and normal palpation of entire chest wall CHEST: Yes Symmetrical chest wall rise Resp: COMMON NORMALS: normal respiratory effort, No retractions and No use of accessory muscles EFFORT & INSPECTION: Yes able to speak in complete sentences, Yes symmetric chest movement, Yes abnormal respiratory pattern, Yes tachypneic, Yes respiratory distress, Yes labored and Yes uses accessory muscles AUSCULTATION: crackles, rales, rhonchi, wheezes and diminished lung sounds OTHER: Decrease breath sound in bilateral bases. Cardio: COMMON NORMALS: regular rate, regular rhythm, S1 normal heart sound present, S2 normal heart sound present, No gallops present (Cardio), No murmurs present (Cardio), No rub (Cardio) and Peripheral pulses 2+ throughout RATE: regular rate and tachycardic RHYTHM: regular rhythm HEART SOUNDS: S1 normal heart sound present and S2 normal heart sound present PERIPHERAL PULSES: Peripheral pulses 2+ throughout GI: COMMON NORMALS: Normal to inspection, nondistended, normoactive bowel sounds present, Soft to palpation, non-tender, No hepatosplenomegaly present and no masses INSPECTION: No abdominal distension AUSCULTATION: Yes normoactive bowel sounds PALPATION: Yes Soft to palpation and Yes No hepatosplenomegaly present RECTAL EXAM: Yes deferred : COMMON NORMALS: Yes no CVA tenderness BLADDER/KIDNEY EXAM: Yes no CVA tenderness Back/Pelvis: COMMON NORMALS: no CVA tenderness Extremity: COMMON NORMALS: normal to inspection, full ROM, no clubbing, cyanosis or edema, no calf tenderness and no pedal edema NARRATIVE EXTREMITY EXAM: -clean dressing on lateral L hip, soft to palpation, no apparent hematoma Neuro: COMMON NORMALS: CN's II-XII intact bilaterally, moves all extremities, no focal motor deficits and no sensory deficits noted SENSORIUM/ORIENTATION: Yes alert, Yes oriented to person, Yes oriented to place and Yes oriented to time SPEECH: speech normal OTHER: -generally quite weak but motivated to participate in therapy Psych: COMMON NORMALS: mental status grossly normal, cooperative and speech normal SPEECH: Yes normal speech MOOD & AFFECT: Yes Flat affect present Skin: COMMON NORMALS: no rashes or lesions noted, no jaundice, no petechiae and no mottling NARRATIVE SKIN EXAM: -thin skin, scattered bruising on upper extremities GENERAL SKIN EXAM: no rashes or lesions noted Urinary Catheter Management^: Lund: Cath Placed During This Visit: no Reason for Continuing Indwelling Catheter: Acute Urinary Retention or Obstruction Data : 07/31/20 05:10 07/31/20 05:10 Micro: Microbiology 07/30/20 07:34 Urine Culture - Preliminary Urine Catheterized Yeast A&P Assessment and plan (1) Sepsis: Status: Acute (2) Uremic encephalopathy: Status: Acute (3) Respiratory failure: Status: Acute (4) Heart failure: Status: Acute (5) Pneumonia: Plan as # 1 Monitor Xray Status: Acute (6) Chronic kidney disease, stage III (moderate): Status: Chronic Qualifiers: Chronic kidney disease stage 3 subtype: unspecified whether 3a or 3b Qualified Code(s): N18.30 - Chronic kidney disease, stage 3 unspecified (7) Anemia: Status: Chronic Qualifiers: Anemia type: unspecified type Qualified Code(s): D64.9 - Anemia, unspecified (8) Polyarteritis nodosa: Status: Chronic (9) DVT (deep venous thrombosis): Status: Acute Qualifiers: Affected thrombotic vein of extremity: unspecified vein of extremity Chronicity: chronic DVT location: lower extremity Laterality: unspecified laterality Qualified Code(s): I82.509 - Chronic embolism and thrombosis of unspecified deep veins of unspecified lower extremity Additional A&P Information Fever suspected due to Pneumonia / ESBL UTI - T-max 100.6 - Chest x-ray - Bilateral pulmonary infiltrates - No leukocytosis - Recent Enterococcus Faecalis bacteremia 10/10 - Repeat Blcx 06/21, 07/11,- > negative - Blcx 06/28 - NGTD - Primaxin 250 mg IV q12hr on day 10 - Zyvox 600 mg IV q12hr on day 3 - Bactrim 314 mg IV Q24hr on day 3 - Capsofungin 50 mg IV q24hr day 3 - Levaquin 750 mg IV Q48HR on day 3 - No leukocytosis, - Influenza A/B, Hepatitis panel, HIV, Anti-streptolysin ab, COVID 19 ag positive 06/15 - negative on 07/07. - Pleural fluid - 109, 5% PMN, total protein 2.1, LDH 331, glucose 81, chol 30. Does not appear that pleural fluid was sent for culture - MRSA negative - CT chest/abdomen pelvis - on 07/31/20 - No acute finding, improvement in airspace disease - Antibiotics Above stopped, no clear source of infection - Will obtain viral respiratory panel if recurrent fevers - May consider continuation of bactrim for PCP prevention while on chronic immunosuppresives - Has remained afebrile > 24hr Acute on chronic stage 3 kidney disease - Started on HD due to suspected uremic encephalopathy - Renal US - Small volume of kidneys bilateral - medical renal disease - Nephrology on board. - Femoral HD catherter in place - HD per Nephrology - will discuss need for ongoing HD - Last HD on 07/31 Left femoral neck fracture - S/p Alina ASNIS 8.0 mm cannulated screws 07/11 Acute hypoxic respiratory failure with recent hx of COVID -19 infection / Bilateral Pleural effusion - Tx with remdesivir reecntly - Supplemental o2 as needed - S/p Thoracentesis on right - 1L drained 07/28 - Repeat chest x-ray - persistent b/l infiltrates. - Bronchodilator tx as needed - Will likely need o2 at discharge. Acute on Chronic HFpEF Exacerbation - Echo (05/2020): EF=62%, mild concentric LVH, mild AR, trace MR, trace TR - Has crackles in both Lung pereira. - C.T Chest B/L PLeural effusion s/p thoracentesis as noted above. 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 D 50,000 units Q7D - Sevelamer 800 mg PO TID Anemia of renal disease - With component of blood loss from epistaxis - Hb stable Hypertension - Norvasc 2.5 mg PO daily - Hydralazine/Labetalol PRN Dyslipidemia - Lipitor 20 mg PO daily Gout - Prednsione 10 mg po daily GERD - Protonix 40 mg PO daily -cardiac diet as tolerated -DVT ppx : On heparin 5000 bid -Dispo: [facility] -Code status: DNR/DNI -Guarded prognosis due to multiple comorbid condition and impending renal failure. Will d/w family regarding fdc care plan. Unfortunately due to poor prognosis may need to consider hospice Attestations Medical Necessity Statement*: Will require furhter hospitalization for management of sepsis, renal failure and altered mental status Time Spent in Patient Care: Greater than 35 minutes Coding Level of Care Code Acute Comparison Shopper for [facility] Fwd Diagnoses Sepsis A41.9 Uremic encephalopathy G93.49; N19 Respiratory failure J96.90 Heart failure I50.9 Pneumonia J18.9 Chronic kidney disease, stage III (moderate) N18.30 Chronic kidney disease stage 3 subtype: unspecified whether 3a or 3b Anemia D64.9 Anemia type: unspecified type Polyarteritis nodosa M30.0 DVT (deep venous thrombosis) I82.509 Affected thrombotic vein of extremity: unspecified vein of extremity Chronicity: chronic DVT location: lower extremity Laterality: unspecified laterality
--- NOTE | 2020-08-01 17:42 | P.EN_ITS ---
Event Note Event Note: Advanced care planning: Discussed patients care, current treatment plan with patients , grand- daughter and daughter in law. Nurse also present. Informed family to progressive decline in overall functional status, persistent encephalopathy, recurrent intermittent fevers, renal failure, and failure to thrive. Unfortunately overall poor prognosis. Family agree to initiate IV pain control. Likely to opt for hospice/comfort care however would like to discuss with patient's son as there is no designated DPOA. CODE status to remain A.N.D. Plan to discuss with CM/SW regarding facility transfer for hospice/comfort measure that is able to accommodate visitations. All questions regarding patient's care were answered. Event Notes Attestations Time Spent in Patient Care: 16 - 35 minutes
[2020-08-02] VITALS (13 sets, daily range): BP systolic 129–153; BP diastolic 87–96; PULSE 85–104; RESP 16–24; TEMP 36.2–36.8; O2SAT 88–95
[2020-08-02] MEDS: FUROsemide 10 mg/mL SDV 10mL 60 MG IVP (00:25)
--- NOTE | 2020-08-02 09:30 | PM.PN ---
Subjective Subjective: Interval history: states he does not want to talk with doctor. refusing medications Vitals/I&O/Wt Last Vital Signs Temp 97.1 F L 08/02/20 07:40 Pulse 104 H 08/02/20 07:40 Resp 19 H 08/02/20 07:40 BP 129/87 08/02/20 07:40 Pulse Ox 91 08/02/20 07:40 08/01/20 08/02/20 08/02/20 22:59 06:59 14:59 Intake Total 50 / 110 120 / 230 60 / 60 Output Total 525 / 525 375 / 900 Balance -475 / -415 -255 / -670 60 / 60 Weight last 48 hrs Weight 54.658 kg Weight 55.973 kg Physical Exam Urinary Catheter Management^: [place]: Cath Placed During This Visit: no Reason for Continuing Indwelling Catheter: Hospice/Comfort/Palliative Care Data : 07/31/20 05:10 07/31/20 05:10 Micro: Microbiology 07/30/20 07:34 Urine Culture - Preliminary Urine Catheterized Yeast A&P Additional A&P Information No indication for dialysis today. Recommend: remove HD catheter if decision is made to discontinue aggressive care. Attestations Medical Necessity Statement*: per primary service Coding Level of Care Code Acute Assignment Officer for [facility]
[2020-08-02] MEDS: ipratropium-albuterol 3 mL Neb INHALATION ×2 (10:06→14:17)
[2020-08-02 10:07] LABS: Anion Gap 15.9 (5-19); Blood Urea Nitrogen 45 mg/dL (8-23); Calcium 8.6 mg/dL (8.5-10.5); Carbon Dioxide 27 mmol/L (22-29); Chloride 97 mmol/L (98-107); Glucose 88 mg/dL (65-115); Osmolality Calculated 293 mOsm/kg (285-295); Potassium 3.9 mmol/L (3.5-5.1); Sodium 136 mmol/L (136-145)
--- NOTE | 2020-08-02 14:09 | P.PN_ITS ---
Subjective Subjective: Interval history: Unchanged overall. Family to decide in AM regarding comfort care measure and placement. Medications: Reviewed: Yes Medication Review Details: Current Medications Acetaminophen (Acetaminophen 325 Mg Tablet) 650 mg PO Q6H PRN PRN Reason: Mild/Mod Pain Or Temp >/= 101 Last Admin: 07/26/20 20:51 Dose: 650 mg Documented by: Albuterol/Ipratropium (Duoneb) 3 ml INHALATION Q6H.RESPIRATORY BLOSSOM Last Admin: 07/27/20 07:55 Dose: 3 ml Documented by: Amlodipine Besylate (Norvasc) 2.5 mg PO DAILY [facility] Last Admin: 07/27/20 08:13 Dose: 2.5 mg Documented by: Atorvastatin Calcium (Lipitor) 20 mg PO BEDTIME BLOSSOM Last Admin: 07/26/20 21:00 Dose: Not Given Documented by: Benzonatate (Benzonatate 100 Mg Capsule) 100 mg PO TID PRN PRN Reason: COUGH Last Admin: 07/25/20 22:41 Dose: 100 mg Documented by: Ergocalciferol (Vitamin D2) 50,000 unit PO Q7D [facility] Last Admin: 07/23/20 11:50 Dose: Not Given Documented by: Guaifenesin/Dextromethorphan (Guaifenesin-Dextromethorphan Udc 10 Ml) 5 ml PO Q4H PRN PRN Reason: COUGH Guaifenesin/Dextromethorphan (Guaifenesin-Dextromethorphan Udc 10 Ml) 5 ml PO BID [facility] Last Admin: 07/27/20 08:29 Dose: Not Given Documented by: Heparin Sodium (Beef Lung) (Heparin 5,000 Unit/Ml Inj 1 Ml) 5,000 unit SUBCUT Q12H [facility] Last Admin: 07/27/20 04:57 Dose: Not Given Documented by: Hydralazine HCl (Hydralazine 20 Mg/Ml Inj 1 Ml) 10 mg IVP Q4H PRN PRN Reason: Blood pressure over 140 Last Admin: 07/27/20 08:14 Dose: 10 mg Documented by: Imipenem/Cilastatin Sodium 250 (mg/ Sodium Chloride) 100 mls @ 200 mls/hr IV Q12H [facility]; Protocol Last Admin: 07/27/20 01:11 Dose: 200 mls/hr Documented by: Vancomycin/PEG/NADA/Lysine/Water (Vancocin) 1,250 mg in 250 mls @ 200 mls/hr IV Q48H BLOSSOM Last Admin: 07/26/20 13:25 Dose: 200 mls/hr Documented by: Labetalol HCl (Labetalol 5 Mg/Ml Sdv 20ml) 10 mg IVP PRN PRN PRN Reason: SBP GREATER THEN 160 Metoclopramide HCl (Reglan) 10 mg IVP ONCE PRN PRN Reason: N/V if zofran ineffective Mirtazapine (Remeron) 30 mg PO BEDTIME BLOSSOM Last Admin: 07/26/20 21:00 Dose: Not Given Documented by: Ondansetron HCl (Zofran) 4 mg IVP Q4H PRN PRN Reason: NAUSEA AND VOMITING Last Admin: 07/23/20 15:08 Dose: 4 mg Documented by: Pantoprazole Sodium (Protonix) 40 mg PO DAILY [facility] Last Admin: 07/27/20 08:13 Dose: 40 mg Documented by: Prednisone (Prednisone 20 Mg Tablet) 10 mg PO DAILY [facility] Last Admin: 07/27/20 08:13 Dose: 10 mg Documented by: Fluticasone/Salmeterol (Advair Diskus 250-50) 1 puff INHALATION BID.RESPIRATORY [facility] Last Admin: 07/27/20 08:18 Dose: Not Given Documented by: Sevelamer Carbonate (Sevelamer 800 Mg Tablet) 800 mg PO TID [facility] Last Admin: 07/27/20 08:13 Dose: 800 mg Documented by: Sodium Chloride (Chaves Nasal [place]) 2 spray NASAL TID [facility] Last Admin: 07/27/20 08:15 Dose: 2 spray Documented by: Vitals/I&O/Wt Last Vital Signs Temp 98.3 F 08/02/20 11:35 Pulse 85 08/02/20 11:35 Resp 18 08/02/20 11:35 BP 151/91 08/02/20 11:35 Pulse Ox 90 08/02/20 11:35 08/01/20 08/02/20 08/02/20 22:59 06:59 14:59 Intake Total 50 / 110 120 / 230 60 / 60 Output Total 525 / 525 375 / 900 Balance -475 / -415 -255 / -670 60 / 60 Weight last 48 hrs Weight 54.658 kg Weight 55.973 kg Physical Exam Narrative: EXAM NARRATIVE: Sleeping Const: COMMON NORMALS: no acute distress and alert GENERAL APPEARANCE: cooperative and comfortable NUTRITIONAL APPEARANCE: thin ORIENTATION/CONSCIOUSNESS: Yes awake, Yes oriented to person, Yes oriented to place, Yes oriented to time and Yes confused HENMT: COMMON NORMALS: normocephalic, atraumatic, external ears normal and moist oral mucous membranes HEAD & SCALP: normocephalic and atraumatic GENERAL EAR: hearing grossly impaired (Hearing better on the right) EXTERNAL EAR: Yes external ears normal Eye: COMMON NORMALS: Equal, round and reactive pupils present, EOMs intact bilaterally, conjunctivae normal and no scleral icterus GENERAL EYE: appearance normal, both eyes and all related structures CONJUNCTIVA: Yes conjunctivae normal PUPIL: Yes Equal, round and reactive pupils present Neck/C-Spine: COMMON NORMALS: full ROM and supple GENERAL: Yes normal visual inspection and Yes trachea midline Chest: COMMONS NORMALS: normal inspection of the chest and normal palpation of entire chest wall CHEST: Yes Symmetrical chest wall rise Resp: COMMON NORMALS: normal respiratory effort, No retractions and No use of accessory muscles EFFORT & INSPECTION: Yes able to speak in complete sentences, Yes symmetric chest movement, Yes abnormal respiratory pattern, Yes tachypneic, Yes respiratory distress, Yes labored and Yes uses accessory muscles AUSCULTATION: crackles, rales, rhonchi, wheezes and diminished lung sounds OTHER: Decrease breath sound in bilateral bases. Cardio: COMMON NORMALS: regular rate, regular rhythm, S1 normal heart sound present, S2 normal heart sound present, No gallops present (Cardio), No murmurs present (Cardio), No rub (Cardio) and Peripheral pulses 2+ throughout RATE: regular rate and tachycardic RHYTHM: regular rhythm HEART SOUNDS: S1 normal heart sound present and S2 normal heart sound present PERIPHERAL PULSES: Peripheral pulses 2+ throughout GI: COMMON NORMALS: Normal to inspection, nondistended, normoactive bowel sounds present, Soft to palpation, non-tender, No hepatosplenomegaly present and no masses INSPECTION: No abdominal distension AUSCULTATION: Yes normoactive bowel sounds PALPATION: Yes Soft to palpation and Yes No hepatosplenomegaly present RECTAL EXAM: Yes deferred : COMMON NORMALS: Yes no CVA tenderness BLADDER/KIDNEY EXAM: Yes no CVA tenderness Back/Pelvis: COMMON NORMALS: no CVA tenderness Extremity: COMMON NORMALS: normal to inspection, full ROM, no clubbing, cyanosis or edema, no calf tenderness and no pedal edema NARRATIVE EXTREMITY EXAM: -clean dressing on lateral L hip, soft to palpation, no apparent hematoma Neuro: COMMON NORMALS: CN's II-XII intact bilaterally, moves all extremities, no focal motor deficits and no sensory deficits noted SENSORIUM/ORIENTATION: Yes alert, Yes oriented to person, Yes oriented to place and Yes oriented to time SPEECH: speech normal OTHER: -generally quite weak but motivated to participate in therapy Psych: COMMON NORMALS: mental status grossly normal, cooperative and speech normal SPEECH: Yes normal speech MOOD & AFFECT: Yes Flat affect present Skin: COMMON NORMALS: no rashes or lesions noted, no jaundice, no petechiae and no mottling NARRATIVE SKIN EXAM: -thin skin, scattered bruising on upper extremities GENERAL SKIN EXAM: no rashes or lesions noted Urinary Catheter Management^: Lund: Cath Placed During This Visit: no Reason for Continuing Indwelling Catheter: Hospice/Comfort/Palliative Care Data : 07/31/20 05:10 08/02/20 08:53 Micro: Microbiology 07/30/20 07:34 Urine Culture - Preliminary Urine Catheterized Yeast A&P Assessment and plan (1) Sepsis: Status: Acute (2) Uremic encephalopathy: Status: Acute (3) Respiratory failure: Status: Acute (4) Heart failure: Status: Acute (5) Pneumonia: Plan as # 1 Monitor Xray Status: Acute (6) Chronic kidney disease, stage III (moderate): Status: Chronic Qualifiers: Chronic kidney disease stage 3 subtype: unspecified whether 3a or 3b Qualified Code(s): N18.30 - Chronic kidney disease, stage 3 unspecified (7) Anemia: Status: Chronic Qualifiers: Anemia type: unspecified type Qualified Code(s): D64.9 - Anemia, unspecified (8) Polyarteritis nodosa: Status: Chronic (9) DVT (deep venous thrombosis): Status: Acute Qualifiers: Affected thrombotic vein of extremity: unspecified vein of extremity Chronicity: chronic DVT location: lower extremity Laterality: unspecified laterality Qualified Code(s): I82.509 - Chronic embolism and thrombosis of unspecified deep veins of unspecified lower extremity Additional A&P Information Fever suspected due to Pneumonia / ESBL UTI - Chest x-ray - Bilateral pulmonary infiltrates - No leukocytosis - Recent Enterococcus Faecalis bacteremia 10/10 - Repeat Blcx 06/21, 07/11,- > negative - Blcx 06/28 - NGTD - Primaxin 250 mg IV q12hr on day 10 - Zyvox 600 mg IV q12hr x 3 days - Bactrim 314 mg IV Q24hr x 3 days - Capsofungin 50 mg IV q24hr x 3 days - Levaquin 750 mg IV Q48HR x 3 days - No leukocytosis, - Influenza A/B, Hepatitis panel, HIV, Anti-streptolysin ab, COVID 19 ag positive 06/15 - negative on 07/07. - Pleural fluid - 109, 5% PMN, total protein 2.1, LDH 331, glucose 81, chol 30. Does not appear that pleural fluid was sent for culture - MRSA negative - CT chest/abdomen pelvis - on 07/31/20 - No acute finding, improvement in airspace disease - Antibiotics Above stopped, no clear source of infection - Will obtain viral respiratory panel if recurrent fevers - May consider continuation of bactrim for PCP prevention while on chronic immunosuppresives - Has remained afebrile > 24hr Acute on chronic stage 3 kidney disease - Started on HD due to suspected uremic encephalopathy - Renal US - Small volume of kidneys bilateral - medical renal disease - Nephrology on board. - Last HD on 07/31 - No further HD - D/C HD femoral catheter today Left femoral neck fracture - S/p Alina ASNIS 8.0 mm cannulated screws 07/11 Acute hypoxic respiratory failure with recent hx of COVID -19 infection / Bilateral Pleural effusion - Tx with remdesivir recently - Supplemental o2 as needed - decreased to 1L today - S/p Thoracentesis on right - 1L drained 07/28 - Repeat chest x-ray - persistent b/l infiltrates. - Bronchodilator tx as needed - Will likely need o2 at discharge. Acute on Chronic HFpEF Exacerbation - Echo (05/2020): EF=62%, mild concentric LVH, mild AR, trace MR, trace TR - Has crackles in both Lung pereira. - C.T Chest B/L PLeural effusion s/p thoracentesis as noted above. - I.V lasix 60 mg I.V Q12 H Daily per nephrology Hx of Right perineal vein DVT - Repeat venous duplex 07/22 - Negative Polyarteritis Nordosa - 07/14 - JENNY positive , Anti-dsDNA ab 28 - Hx of cellcept 07/22 (stopped) - On prednisone 10 mg PO daily Secondary hyperparathyroidism - In setting of renal disease - Vit. D 50,000 units Q7D - Sevelamer 800 mg PO TID Anemia of renal disease - With component of blood loss from epistaxis - Hb stable Hypertension - Norvasc 2.5 mg PO daily - Hydralazine/Labetalol PRN Dyslipidemia - Lipitor 20 mg PO daily Gout - Prednsione 10 mg po daily GERD - Protonix 40 mg PO daily -cardiac diet as tolerated -DVT ppx : On heparin 5000 bid -Dispo: Discussed at length as noted below in ACP note. CM to continue to work on placement in NH facility which can accommodate visitors while on hospice/comfort care. Family to notify in am regarding final decision on discharge disposition. Requested to initiate IV pain medication. Agreed to hold on further invasive testing. ACP note: 08/02/20 Discussed patients care, current treatment plan with patients , grand- daughter and daughter in law. Nurse also present. Informed family to progressive decline in overall functional status, persistent encephalopathy, recurrent intermittent fevers, renal failure, and failure to thrive. Unfortunately overall poor prognosis. Family agree to initiate IV pain control. Likely to opt for hospice/comfort care however would like to discuss with patient's son as there is no designated DPOA. CODE status to remain A.N.D. Plan to discuss with CM/SW regarding facility transfer for hospice/comfort measure that is able to accommodate visitations. All questions regarding patient's care were answered. Attestations Medical Necessity Statement*: Will require further hospitalization for IV diuresis, o2 and discharge planning. Time Spent in Patient Care: Greater than 35 minutes (>than 50% of time spent in counselling and/or direct pt care on unit) . Coding Level of Care Code Acute Torch Burner for g Fwd Diagnoses Sepsis A41.9 Uremic encephalopathy G93.49; N19 Respiratory failure J96.90 Heart failure I50.9 Pneumonia J18.9 Chronic kidney disease, stage III (moderate) N18.30 Chronic kidney disease stage 3 subtype: unspecified whether 3a or 3b Anemia D64.9 Anemia type: unspecified type Polyarteritis nodosa M30.0 DVT (deep venous thrombosis) I82.509 Affected thrombotic vein of extremity: unspecified vein of extremity Chronicity: chronic DVT location: lower extremity Laterality: unspecified laterality
--- NOTE | 2020-08-02 15:47 | PC.NURSE ---
[address] CANDELARIO IN AFTERNOON ROUNDS - 02 DECREASED TO 1L - PT MAINTAINING SAT OF 97-99% - WILL MONITOR - SPOKE WITH SON EARLIER IN SHIFT REGARDING DISCHARGE PLANS - SON STATED WE ARE STILL DISCUSSING WITH FAMILY - OF NOW PTS 02 UP TO 5L - SATS 89-90% RESP REMAIN UNLABORED - PT HAS HAD LITTLE INTAKE THROUGHOUT SHIFT - REFUSES ALL MEDS AND FOOD - WILL CONTINUE TO MONITOR
--- NOTE | 2020-08-02 16:14 | PC.NURSE ---
RT RT ON FLOOR WELL FAMILY - SATS REMAIN 87-89 ON 5L - RT TO INCREASE 02 - FAMILY AT BEDSIDE AND AWARE
[2020-08-02] MEDS: HYDROmorphone 1 mg/mL INJ 1 mL 0.2 MG IVP ×2 (16:45→22:59)
--- NOTE | 2020-08-02 16:51 | PC.NURSE ---
Dr Lou - d Dr Lou on floor to discuss pt condition - family wishes to proceed with comfort care at present time
[2020-08-03] VITALS (10 sets, daily range): BP systolic 125–149; BP diastolic 82–92; PULSE 87–114; RESP 14–20; TEMP 37–37.2; O2SAT 81–100
[2020-08-03] MEDS: FUROsemide 10 mg/mL SDV 10mL 60 MG IVP ×2 (02:02→11:35)
[2020-08-03] MEDS: HYDROmorphone 1 mg/mL INJ 1 mL 0.2 MG IVP ×2 (09:04→13:17)
--- NOTE | 2020-08-03 12:33 | PC.NURSE ---
patient's family called grant writer into room and requested the oxygen and continuous pulse ox be turned off and taken off. they want patient to be on comfort care and all oral medications discontinued except comfort meds. Dr Thomas notified.
--- NOTE | 2020-08-03 14:14 | PM.PN ---
Subjective Subjective: Interval history: Transition to comfort measures per family request goals of care discussion yesterday. Switched to appropriate medications, family requested removal of supplemental oxygen at this time. Had 200 mL urine output overnight. Family at bedside. Patient resting in bed, grimacing and voices discomfort at this time so will request analgesics. Medications: Reviewed: Yes Medication Review Details: Active Medications Generic Name Dose Route Start Last Admin Trade Name Freq PRN Reason Stop Dose Admin Acetaminophen 650 mg 07/10/20 13:05 07/27/20 21:51 Acetaminophen 32 5 Mg Tablet PO 650 mg Q6H PRN Administration Mild/Mod Pain Or Temp >/= 101 Atropine Sulfate 4 drop 08/03/20 12:30 Atropine 1% Op S oln 5 Ml Btl SUBLINGUAL Q4H PRN Excessive Secreti ons, Rattling Benzonatate 100 mg 07/21/20 12:57 07/25/20 22:41 Benzonatate 100 Mg Capsule PO 100 mg TID PRN Administration COUGH Guaifenesin/Dextro methorphan 5 ml 07/21/20 12:57 Guaifenesin-Dext romethorphan Udc 1 0 Ml PO Q4H PRN COUGH Guaifenesin/Dextro methorphan 5 ml 07/25/20 22:00 08/03/20 09:13 Guaifenesin-Dext romethorphan Udc 1 0 Ml PO Not Given BID BLOSSOM Hydromorphone HCl 0.2 mg 08/01/20 17:01 08/03/20 13:17 Hydromorphone 1 Mg/Ml Inj 1 Ml IVP 0.2 mg Q4H PRN Administration PAIN Lorazepam 1 mg 08/03/20 12:30 Lorazepam 2 Mg/M l Inj 1 Ml IVP Q2H PRN SHORTNESS OF LUBA TH Ondansetron HCl 4 mg 07/11/20 10:25 07/30/20 20:24 Ondansetron 2 Mg /Ml Sdv 2 Ml IVP 4 mg Q4H PRN Administration NAUSEA AND VOMITI NG Sodium Chloride 2 spray 07/10/20 21:00 08/03/20 09:13 Saline Nasal Spr ay 44ml Btl NASAL Not Given TID BLOSSOM No Known Allergies Allergy (Verified 05/17/20 02:56) Vitals/I&O/Wt Last Vital Signs Temp 98.8 F 08/03/20 07:33 Pulse 103 H 08/03/20 11:39 Resp 16 08/03/20 13:17 BP 138/92 08/03/20 11:39 Pulse Ox 81 L 08/03/20 13:17 08/02/20 08/03/20 08/03/20 22:59 06:59 14:59 Intake Total 0 / 60 Output Total 300 / 300 200 / 500 Balance -300 / -240 -200 / -440 Weight last 48 hrs Weight 55.883 kg Weight 54.658 kg Physical Exam Const: GENERAL APPEARANCE: frail appearing NUTRITIONAL APPEARANCE: thin ORIENTATION/CONSCIOUSNESS: Yes awake HENMT: COMMON NORMALS: normocephalic, atraumatic and moist oral mucous membranes HEAD & SCALP: normocephalic and atraumatic GENERAL EAR: hearing grossly impaired (Hearing better on the right) Eye: COMMON NORMALS: Equal, round and reactive pupils present, EOMs intact bilaterally and conjunctivae normal CONJUNCTIVA: Yes conjunctivae normal PUPIL: Yes Equal, round and reactive pupils present Neck/C-Spine: COMMON NORMALS: full ROM GENERAL: Yes normal visual inspection and Yes trachea midline Resp: COMMON NORMALS: normal respiratory effort, No retractions, No use of accessory muscles and clear to auscultation bilaterally EFFORT & INSPECTION: Yes able to speak in complete sentences, Yes symmetric chest movement and No tachypneic AUSCULTATION: clear to auscultation bilaterally OTHER: -on RA Cardio: COMMON NORMALS: regular rate, regular rhythm, S1 normal heart sound present, S2 normal heart sound present and No murmurs present (Cardio) RATE: regular rate RHYTHM: regular rhythm HEART SOUNDS: S1 normal heart sound present and S2 normal heart sound present GI: COMMON NORMALS: Normal to inspection, nondistended, normoactive bowel sounds present, Soft to palpation and non-tender PALPATION: Yes Soft to palpation Extremity: COMMON NORMALS: normal to inspection, full ROM, no clubbing, cyanosis or edema and no pedal edema Neuro: COMMON NORMALS: moves all extremities, no focal motor deficits and no sensory deficits noted OTHER: -generally quite weak Psych: COMMON NORMALS: mental status grossly normal, cooperative and speech normal SPEECH: Yes normal speech MOOD & AFFECT: Yes Flat affect present Skin: COMMON NORMALS: no rashes or lesions noted, no jaundice, no petechiae and no mottling NARRATIVE SKIN EXAM: -thin skin, scattered bruising on upper extremities GENERAL SKIN EXAM: no rashes or lesions noted Urinary Catheter Management^: Lund: Cath Placed During This Visit: no Reason for Continuing Indwelling Catheter: Hospice/Comfort/Palliative Care Data : 07/31/20 05:10 08/02/20 08:53 Micro: Microbiology 07/30/20 07:34 Urine Culture - Preliminary Urine Catheterized Piedad parapsilosis A&P Assessment and plan (1) 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 Status: Acute (2) Respiratory failure: -s/p R thoracentesis with removal of 1000 mL of fluid Status: Acute Qualifiers: Chronicity: acute on chronic Respiratory failure complication: hypoxia Qualified Code(s): J96.21 - Acute and chronic respiratory failure with hypoxia (3) Heart failure: -s/p R thoracentesis with removal of 1000 mL of fluid -off diuretics Status: Acute Qualifiers: Heart failure chronicity: chronic Heart failure type: diastolic Qualified Code(s): I50.32 - Chronic diastolic (congestive) heart failure (4) Pneumonia: -evidence of pneumonia on imaging with diffuse airspace density -off antibiotics -no leukocytosis, afebrile, now off supplemental oxygen per family request Status: Acute Qualifiers: Laterality: bilateral Lung location: unspecified part of lung Pneumonia type: due to unspecified organism Qualified Code(s): J18.9 - Pneumonia, unspecified organism (5) Chronic kidney disease, stage III (moderate): -has known CKD stage 3; 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 Repeat US shows small volume kidneys bilaterally with increased echogenicity consistent with chronic medical renal disease -urine lytes, repeat UA noted, CPK wnl, elevated PTH consistent with secondary hyperparathyroidism; low vitamin D indicating vitamin D deficiency, on supplementation -Follows up with nephrology (Dr. Earl Brown, ) at [facility] -off IVF; encourage oral hydration -has Lund catheter in place, continue to monitor Is & Os, assess daily for removal -decreased BP meds to increase renal perfusion -cellcept resumed at 500 mg BID (07/16), steroids titrated -s/p sessions of dialysis with little improvement so catheter discontinued Status: Chronic Qualifiers: Chronic kidney disease stage 3 subtype: unspecified whether 3a or 3b Qualified Code(s): N18.30 - Chronic kidney disease, stage 3 unspecified (6) Anemia: -With episodes of R sided epistaxis that required packing on 07/08 -Has known history of anemia and has had prior GI work-up which per patient was negative for any acute bleeding source -Prior admission last month for severe anemia with hemoglobin as low as 4 and requirement of transfusion of blood products -s/p 1 unit with improvement in Hg up to 10 (06/15) -continue to monitor H/H closely; s/p 1 unit of PRBCs (07/15) with noted stability thereafter -s/p IV iron, iron studies noted Status: Chronic Qualifiers: Anemia type: unspecified type Qualified Code(s): D64.9 - Anemia, unspecified (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 Peraza appreciated -Treated for COVID-19 infection in 06/2020 -Recurrent falls, generalized weakness, physical deconditioning, previously had rhabdomyolysis which resolved; PT evaluation appreciated, strict fall precautions -Known history of hypertension -GERD; on PPI and carafate -Hyperlipidemia; off statin -Skin cancer affecting L ear; currently undergoing treatment -Very hard of hearing; hearing slightly better on the R -underlying cognitive impairment; reorient as needed -hx of chronic diastolic CHF, no acute exacerbation, off IVF. Echo (05/2020): EF=62%, mild concentric LVH, mild AR, trace MR, trace TR -ST evaluation done due to noted difficulty swallowing; no overt aspiration noted, regular consistently recommended as well as crushing meds which patient has declined, he wants to take his medications whole -s/p ORIF for non-displaced L femur fracture -secondary hyperparathyroidism -Gout; off steroids -diet as tolerated -transitioned to comfort measures per goals of care discussion with family; poor prognosis Attestations Medical Necessity Statement*: Patient requires hospitalization for continued comfort care. Time Spent in Patient Care: 16 - 35 minutes (>than 50% of time spent in counselling and/or direct pt care on unit). Coding Level of Care Code Acute Credit Review Analyst for [facility] Fwd Exam Comprehensive Diagnoses Uremic encephalopathy G93.49; N19 Respiratory failure J96.21 Chronicity: acute on chronic Respiratory failure complication: hypoxia Heart failure I50.32 Heart failure chronicity: chronic Heart failure type: diastolic Pneumonia J18.9 Laterality: bilateral Lung location: unspecified part of lung Pneumonia type: due to unspecified organism Chronic kidney disease, stage III (moderate) N18.30 Chronic kidney disease stage 3 subtype: unspecified whether 3a or 3b Anemia D64.9 Anemia type: unspecified type Polyarteritis nodosa M30.0 DVT (deep venous thrombosis) I82.509 Affected thrombotic vein of extremity: unspecified vein of extremity Chronicity: chronic DVT location: lower extremity Laterality: unspecified laterality
[2020-08-03] MEDS: HYDROmorphone 1 mg/mL INJ 1 mL 0.5 MG IVP ×2 (16:17→19:48)
--- NOTE | 2020-08-03 17:53 | PC.NURSE ---
patient's refuses to be turned this time.
--- NOTE | 2020-08-03 18:00 | PC.NURSE ---
patient's family refuse vital sign checks and turns at this time. family advised that they can change their mind at any time. just let us know. Notified Dr Thomas of patient's wishes at this time.
[2020-08-03] MEDS: guaiFENesin-dextromethorphan UDC 10 mL 5 ML PO (18:23)
[2020-08-03] MEDS: LORazepam 2 mg/mL INJ 1 mL 1 MG IVP (21:16)
[2020-08-04 00:40] VITALS: BP 130/80; PULSE 121; RESP 15; TEMP 36.5; O2SAT 81
[2020-08-04 02:48] VITALS: RESP 14
[2020-08-04] MEDS: HYDROmorphone 1 mg/mL INJ 1 mL 0.5 MG IVP ×4 (02:48→18:42)
[2020-08-04 04:28] VITALS: BP 114/79; PULSE 115; RESP 16; TEMP 38.8; O2SAT 81
[2020-08-04] MEDS: LORazepam 2 mg/mL INJ 1 mL 1 MG IVP ×2 (04:41→12:14)
--- NOTE | 2020-08-04 08:39 | PC.NURSE ---
at this time patient's son stated I don't want vitals done. I let him know that if he or family change their mind to let us know and we would do vitals.
[2020-08-04 08:53] VITALS: RESP 16; O2SAT 82
--- NOTE | 2020-08-04 10:43 | PC.SOCIAL ---
IMM Not Updated Pt is on Comfort Care. IMM was not updated b/c of this.
--- NOTE | 2020-08-04 12:19 | PC.NURSE ---
patient's daughter refuses vitals sign checks at this time.
[2020-08-04 13:58] VITALS: RESP 18; O2SAT 80
--- NOTE | 2020-08-04 14:02 | PC.NURSE ---
patient's daughter refuses repositioning at this time.
--- NOTE | 2020-08-04 15:40 | PC.NURSE ---
patient's family refuse vitals and repositioning patient at this time. residential mortgage underwriter will continue to check with patient's family and patient's was advised to let staff know if they change their mind.
[2020-08-04 19:34] VITALS: BP 103/65; PULSE 141; RESP 14; TEMP 39.5; O2SAT 78
--- NOTE | 2020-08-04 21:08 | P.PN_ITS ---
Subjective Subjective: Interval history: Resting quietly in bed, at bedside, febrile, hypoxic and tachycardic. Repositioned per 's wishes. Medications: Reviewed: Yes Medication Review Details: Active Medications Generic Name Dose Route Start Last Admin Trade Name Freq PRN Reason Stop Dose Admin Acetaminophen 650 mg 07/10/20 13:05 07/27/20 21:51 Acetaminophen 32 5 Mg Tablet PO 650 mg Q6H PRN Administration Mild/Mod Pain Or Temp >/= 101 Atropine Sulfate 4 drop 08/03/20 12:30 Atropine 1% Op S oln 5 Ml Btl SUBLINGUAL Q4H PRN Excessive Secreti ons, Rattling Benzonatate 100 mg 07/21/20 12:57 07/25/20 22:41 Benzonatate 100 Mg Capsule PO 100 mg TID PRN Administration COUGH Guaifenesin/Dextro methorphan 5 ml 07/21/20 12:57 Guaifenesin-Dext romethorphan Udc 1 0 Ml PO Q4H PRN COUGH Guaifenesin/Dextro methorphan 5 ml 07/25/20 22:00 08/04/20 17:42 Guaifenesin-Dext romethorphan Udc 1 0 Ml PO Not Given BID BLOSSOM Hydromorphone HCl 0.5 mg 08/03/20 16:02 08/04/20 18:42 Hydromorphone 1 Mg/Ml Inj 1 Ml IVP 0.5 mg Q2H PRN Administration PAIN Lorazepam 1 mg 08/03/20 12:30 08/04/20 12:14 Lorazepam 2 Mg/M l Inj 1 Ml IVP 1 mg Q2H PRN Administration SHORTNESS OF LUBA TH Ondansetron HCl 4 mg 07/11/20 10:25 07/30/20 20:24 Ondansetron 2 Mg /Ml Sdv 2 Ml IVP 4 mg Q4H PRN Administration NAUSEA AND VOMITI NG Sodium Chloride 2 spray 07/10/20 21:00 08/04/20 19:20 Saline Nasal Spr ay 44ml Btl NASAL Not Given TID BLOSSOM No Known Allergies Allergy (Verified 05/17/20 02:56) Vitals/I&O/Wt Last Vital Signs Temp 103.1 F H 08/04/20 19:34 Pulse 141 H 08/04/20 19:34 Resp 14 08/04/20 19:34 BP 103/65 08/04/20 19:34 Pulse Ox 78 L 08/04/20 19:34 08/04/20 08/04/20 08/04/20 06:59 14:59 22:59 Intake Total 0 / 0 Output Total 300 / 540 5 / 5 Balance -300 / -540 -5 / -5 Weight last 48 hrs Weight 57.878 kg Weight 55.883 kg Physical Exam Const: COMMON NORMALS: no acute distress GENERAL APPEARANCE: frail appearing NUTRITIONAL APPEARANCE: thin OTHER: -resting quietly in bed HENMT: COMMON NORMALS: normocephalic and atraumatic HEAD & SCALP: normocephalic and atraumatic GENERAL EAR: hearing grossly impaired (Hearing better on the right) Eye: COMMON NORMALS: Equal, round and reactive pupils present, EOMs intact bilaterally and conjunctivae normal CONJUNCTIVA: Yes conjunctivae normal PUPIL: Yes Equal, round and reactive pupils present Neck/C-Spine: COMMON NORMALS: full ROM GENERAL: Yes normal visual inspection and Yes trachea midline Resp: COMMON NORMALS: normal respiratory effort, No retractions, No use of accessory muscles and clear to auscultation bilaterally EFFORT & INSPECTION: Yes able to speak in complete sentences, Yes symmetric chest movement and No tachypneic AUSCULTATION: clear to auscultation bilaterally OTHER: -on RA; hypoxic Cardio: COMMON NORMALS: S1 normal heart sound present, S2 normal heart sound present and No murmurs present (Cardio) RATE: tachycardic HEART SOUNDS: S1 normal heart sound present and S2 normal heart sound present GI: COMMON NORMALS: Normal to inspection, nondistended, normoactive bowel sounds present, Soft to palpation and non-tender PALPATION: Yes Soft to pa lpation Extremity: COMMON NORMALS: normal to inspection, full ROM, no clubbing, cyanosis or edema and no pedal edema Neuro: COMMON NORMALS: no focal motor deficits and no sensory deficits noted OTHER: -generally quite weak Psych: COMMON NORMALS: mental status grossly normal, cooperative and speech normal SPEECH: Yes normal speech MOOD & AFFECT: Yes Flat affect present Skin: COMMON NORMALS: no rashes or lesions noted, no jaundice, no petechiae and no mottling NARRATIVE SKIN EXAM: -thin skin, scattered bruising on upper extremities GENERAL SKIN EXAM: no rashes or lesions noted Urinary Catheter Management^: Lund: Cath Placed During This Visit: no Reason for Continuing Indwelling Catheter: Hospice/Comfort/Palliative Care Data : 07/31/20 05:10 08/02/20 08:53 Micro: Microbiology 07/29/20 18:10 Blood Culture - Final Blood NO GROWTH AFTER 5 DAYS 07/29/20 18:05 Blood Culture - Final Blood NO GROWTH AFTER 5 DAYS A&P Assessment and plan (1) 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 Status: Acute (2) Respiratory failure: -s/p R thoracentesis with removal of 1000 mL of fluid Status: Acute Qualifiers: Chronicity: acute on chronic Respiratory failure complication: hypoxia Qualified Code(s): J96.21 - Acute and chronic respiratory failure with hypoxia (3) Heart failure: -s/p R thoracentesis with removal of 1000 mL of fluid -off diuretics Status: Acute Qualifiers: Heart failure type: diastolic Heart failure chronicity: chronic Qualified Code(s): I50.32 - Chronic diastolic (congestive) heart failure (4) Pneumonia: -evidence of pneumonia on imaging with diffuse airspace density -off antibiotics -no leukocytosis, afebrile, now off supplemental oxygen per family request Status: Acute Qualifiers: Pneumonia type: due to unspecified organism Laterality: bilateral Lung location: unspecified part of lung Qualified Code(s): J18.9 - Pneumonia, unspecified organism (5) Chronic kidney disease, stage III (moderate): -has known CKD stage 3; 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 Repeat US shows small volume kidneys bilaterally with increased echogenicity consistent with chronic medical renal disease -urine lytes, repeat UA noted, CPK wnl, elevated PTH consistent with secondary hyperparathyroidism; low vitamin D indicating vitamin D deficiency, on supplementation -Follows up with nephrology (Dr. Earl Brown, ) at [facility] -off IVF; encourage oral hydration -has Lund catheter in place, continue to monitor Is & Os, assess daily for removal -decreased BP meds to increase renal perfusion -cellcept resumed at 500 mg BID (11/5), steroids titrated -s/p sessions of dialysis with little improvement so catheter discontinued Status: Chronic Qualifiers: Chronic kidney disease stage 3 subtype: unspecified whether 3a or 3b Qualified Code(s): N18.30 - Chronic kidney disease, stage 3 unspecified (6) Anemia: -With episodes of R sided epistaxis that required packing on 07/08 -Has known history of anemia and has had prior GI work-up which per patient was negative for any acute bleeding source -Prior admission last month for severe anemia with hemoglobin as low as 4 and requirement of transfusion of blood products -s/p 1 unit with improvement in Hg up to 10 (06/15) -continue to monitor H/H closely; s/p 1 unit of PRBCs (07/15) with noted stability thereafter -s/p IV iron, iron studies noted Status: Chronic Qualifiers: Anemia type: unspecified type Qualified Code(s): D64.9 - Anemia, unspecified (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 Peraza appreciated -Treated for COVID-19 infection in 06/2020 -Recurrent falls, generalized weakness, physical deconditioning, previously had rhabdomyolysis which resolved; PT evaluation appreciated, strict fall precautions -Known history of hypertension -GERD; on PPI and carafate -Hyperlipidemia; off statin -Skin cancer affecting L ear; currently undergoing treatment -Very hard of hearing; hearing slightly better on the R -underlying cognitive impairment; reorient as needed -hx of chronic diastolic CHF, no acute exacerbation, off IVF. Echo (05/2020): EF=62%, mild concentric LVH, mild AR, trace MR, trace TR -ST evaluation done due to noted difficulty swallowing; no overt aspiration noted, regular consistently recommended as well as crushing meds which patient has declined, he wants to take his medications whole -s/p ORIF for non-displaced L femur fracture -secondary hyperparathyroidism -Gout; off steroids -diet as tolerated -transitioned to comfort measures per goals of care discussion with family; poor prognosis Attestations Medical Necessity Statement*: Patient requires hospitalization for continued comfort measures. Time Spent in Patient Care: 16 - 35 minutes (>than 50% of time spent in counselling and/or direct pt care on unit) . Coding Level of Care Code Acute Nursing Program Chair for g Fwd Diagnoses Uremic encephalopathy G93.49; N19 Respiratory failure J96.21 Chronicity: acute on chronic Respiratory failure complication: hypoxia Heart failure I50.32 Heart failure type: diastolic Heart failure chronicity: chronic Pneumonia J18.9 Pneumonia type: due to unspecified organism Laterality: bilateral Lung location: unspecified part of lung Chronic kidney disease, stage III (moderate) N18.30 Chronic kidney disease stage 3 subtype: unspecified whether 3a or 3b Anemia D64.9 Anemia type: unspecified type Polyarteritis nodosa M30.0 DVT (deep venous thrombosis) I82.509 Affected thrombotic vein of extremity: unspecified vein of extremity Chronicity: chronic DVT location: lower extremity Laterality: unspecified laterality
[2020-08-05] MEDS: HYDROmorphone 1 mg/mL INJ 1 mL 0.5 MG IVP (02:45)
[2020-08-05] MEDS: LORazepam 2 mg/mL INJ 1 mL 1 MG IVP (02:46)
[2020-08-05 05:00] VITALS: PULSE 0; RESP 0
--- NOTE | 2020-08-05 05:02 | PC.NURSE ---
Son of patient called nurse into room because his father stop breathing. This RN and a FOOD SERVICE TEAM MEMBER confirmed the patient had passed by no visible respirations or auscultated heart beat. Solid Propellant Processor and Hospitalist. Son of patient is letting other family members know to come into the hospital.
--- NOTE | 2020-08-05 07:56 | P.DES_ITS ---
Discharge Providers DDS Date of Admission: 07/10/20 11:29 Date Summary Completed: 08/05/20 Attending Provider at Admission: Marya Fox DO Time of : 05:02 Attending Provider at Discharge: Kaylin Thomas MD Consults: Nephrology, general surgery, orthopedic surgery, interventional radiology Primary Care Provider: Maricarmen Meza MD DS Diagnoses Hospital Diagnoses (1) Uremic encephalopathy: (2) Respiratory failure: Qualifiers: Chronicity: acute on chronic Respiratory failure complication: hypoxia Qualified Code(s): J96.21 - Acute and chronic respiratory failure with hypoxia (3) Heart failure: Qualifiers: Heart failure type: diastolic Heart failure chronicity: chronic Qualified Code(s): I50.32 - Chronic diastolic (congestive) heart failure (4) Pneumonia: Qualifiers: Pneumonia type: due to unspecified organism Laterality: bilateral Lung location: unspecified part of lung Qualified Code(s): J18.9 - Pneumonia, unspec ified organism (5) Chronic kidney disease, stage III (moderate): Qualifiers: Chronic kidney disease stage 3 subtype: unspecified whether 3a or 3b Qualified Code(s): N18.30 - Chronic kidney disease, stage 3 unspecified (6) Anemia: Qualifiers: Anemia type: unspecified type Qualified Code(s): D64.9 - Anemia, unspecified (7) Polyarteritis nodosa: (8) DVT (deep venous thrombosis): Qualifiers: Affected thrombotic vein of extremity: unspecified vein of extremity Chronicity: chronic DVT location: lower extremity Laterality: unspecified laterality Qualified Code(s): I82.509 - Chronic embolism and thrombosis of unspecified deep veins of unspecified lower extremity Other Contributing Factors/Diagnoses -UTI secondary to ESBL Klebsiella; treated with antibiotics; ID consultation by Dr. Peraza appreciated -Treated for COVID-19 infection in 06/2020 -Recurrent falls, generalized weakness, physical deconditioning, previously had rhabdomyolysis which resolved; PT evaluation appreciated, strict fall precautions -Known history of hypertension -GERD; on PPI and carafate -Hyperlipidemia; off statin -Skin cancer affecting L ear; currently undergoing treatment -Very hard of hearing; hearing slightly better on the R -underlying cognitive impairment; reorient as needed -hx of chronic diastolic CHF, no acute exacerbation, off IVF. Echo (05/2020): EF=62%, mild concentric LVH, mild AR, trace MR, trace TR -ST evaluation done due to noted difficulty swallowing; no overt aspiration noted, regular consistently recommended as well as crushing meds which patient declined, preferring to take his medications whole -s/p ORIF for non-displaced L femur fracture -secondary hyperparathyroidism -Gout; off steroids Reason for Visit Reason for Visit: L HIP PAIN/ LAC TO EYE Summary Date and Time of Date of : 08/05/20 Time of : 05:02 Summary Summary: Patient unfortunately had quite a protracted hospital course, initially presented on 07/10 secondary to a fall with subsequent left hip fracture. Orthopedics was consulted and patient had ORIF without complication. He was found to have a UTI secondary to ESBL Klebsiella that required treatment with imipenem following consultation with infectious disease. He has known CKD stage III secondary to underlying polyarteritis nodosa for which he has been taking CellCept and oral steroids. Due to infection CellCept was held but with noted continued renal impairment and discussion with his primary boat motor mechanic this was resumed in the hopes that renal function would improve. Unfortunately this was not the case and he did require a few sessions of dialysis; he was not able to tolerate this very well due to hypotension so this was discontinued following further discussion with nephrology and patient. He had recently been diagnosed with an acute right lower extremity DVT but due to underlying and acutely worsening anemia anticoagulation was held. During previous admissions he had had significant right epistaxis requiring packing and transfusion so use of anticoagulation have been quite fragmented. During the course of June he had been treated for COVID-19 infection requiring hospitalization twice. Due to recurrent hospital admissions he had developed significant physical deconditioning and generalized weakness further worsened by his underlying comorbidities and active issues. With worsening renal function his mental status began to decline further, he developed respiratory failure and required thoracentesis with removal of 1000 mL of fluid from the right, he was treated with additional antibiotics secondary to pneumonia and following additional discussions particularly in terms of goals of care with patient's family d ecision was made to transition him to end-of-life care. Patient earlier this morning at 0502 with family present at bedside, likely secondary to cardiopulmonary failure secondary to pneumonia and acute CHF exacerbation further compounded by acute on chronic renal failure and encephalopathy. Additional Data Confirmation of as documented by pronouncing clinician: no respirations and no heart sounds Family: at bedside Additional persons at bedside: nursing staff Attending/PCP notified?: I am attending Was code activated?: No Advance directives?: Yes Hospice patient?: Yes Discharge Plan Discharge Patient Disposition: Condition: Prescriptions: New atovaquone 750 mg/5 mL suspension 1,500 mg PO DAILY Qty: 210 RF: 0 No Action ondansetron HCl [Zofran] 4 mg tablet 4 mg PO BID PRN (Reason: nausea and vomiting) Qty: 30 RF: 0 fluticasone propion-salmeterol [Advair Diskus] 250-50 mcg/dose Blister With Device 1 puff inhalation BID.RESPIRATORY Qty: 1 RF: 0 prednisone 10 mg tablet 20 mg PO DAILY Qty: 30 RF: 0 cyanocobalamin (vitamin B-12) [Vitamin B-12] 1,000 mcg Tablet 1,000 mcg PO DAILY RF: 0 mirtazapine 30 mg tablet 30 mg PO BEDTIME RF: 0 sucralfate [Carafate] 1 gram tablet 1 gm PO BID Qty: 60 RF: 3 Tubersol 5 tub. unit /0.1 mL Solution See Rx Instructions .ROUTE .COMPLEX RF: 0 acetaminophen [Tylenol] 325 mg Tablet 325 mg PO PRN PRN (Reason: Fever) RF: 0 bisacodyl 10 mg Suppository 10 mg [place] DAILY PRN (Reason: Constipation) RF: 0 Enema Disposable 19-7 gram/118 mL Enema 118 ml [place] DAILY PRN (Reason: Constipation) RF: 0 albuterol sulfate [ProAir HFA] 90 mcg/actuation Hfa Aerosol Inhaler 1 puff INHALATION QID RF: 0 pravastatin 20 mg tablet 20 mg PO BEDTIME RF: 0 amlodipine 10 mg Tablet 10 mg PO DAILY Qty: 30 RF: 0 pantoprazole 40 mg Tablet,Delayed Release (Dr/Ec) 40 mg PO DAILY Qty: 30 RF: 0 oxymetazoline [Afrin (oxymetazoline)] 0.05 % Deaver,Non-Aerosol 4 spray NOSTRIL-R QID 2 Days RF: 0 sodium chloride [Saline Nose] 0.65 % aerosol,spray 2 spray INTRANASAL TID Qty: 60 RF: 0 hydralazine 25 mg tablet 25 mg PO TID Qty: 90 RF: 0 mycophenolate mofetil 500 mg tablet 500 mg PO BID Qty: 60 RF: 0 prednisone 5 mg Tablet 5 mg PO DAILY RF: 0 Referrals: [facility] [Outside] DS Attestations Time Spent in /Discharge Care*: greater than 30 min Quality - AMI: AMI present?: No Quality - Stroke: CVA present?: No Quality - VTE: VTE present?: No Coding Level of Care Code Acute Bread Icer for Chg Fwd Diagnoses Uremic encephalopathy G93.49; N19 Respiratory failure J96.21 Chronicity: acute on chronic Respiratory failure complication: hypoxia Heart failure I50.32 Heart failure type: diastolic Heart failure chronicity: chronic Pneumonia J18.9 Pneumonia type: due to unspecified organism Laterality: bilateral Lung location: unspecified part of lung Chronic kidney disease, stage III (moderate) N18.30 Chronic kidney disease stage 3 subtype: unspecified whether 3a or 3b Anemia D64.9 Anemia type: unspecified type Polyarteritis nodosa M30.0 DVT (deep venous thrombosis) I82.509 Affected thrombotic vein of extremity: unspecified vein of extremity Chronicity: chronic DVT location: lower extremity Laterality: unspecified laterality
[2020-08-05 08:30] VITALS: PULSE 0; RESP 0
== END 2020-08-05 08:30 | disposition expired | DRG 480 ==
LOC: ER 07:52 → MEDSURG 12:01
PROVIDERS: Internal Medicine; Internal Medicine Nephrology; Orthopaedic Surgery; Student in an Organized Health Care Education/Training Program; Admitting Provider Family Medicine; Emergency Provider Emergency Medicine; PCP Family Medicine; Visit Provider Family Medicine
PROC: 0QH734Z Insertion of Internal Fixation Device into Left Upper Femur, Percutaneous Approach (ICD-10-PCS; CPT 27236; principal; 2020-07-11 08:00)
DX: S72.002A Fracture of unspecified part of neck of left femur, initial encounter for closed fracture (principal); A41.9 Sepsis, unspecified organism; I50.33 Acute on chronic diastolic (congestive) heart failure; J96.21 Acute and chronic respiratory failure with hypoxia; G92 Toxic encephalopathy; J18.9 Pneumonia, unspecified organism; M30.0 Polyarteritis nodosa; I13.0 Hypertensive heart and chronic kidney disease with heart failure and stage 1 through stage 4 chronic kidney disease, or unspecified chronic kidney disease; D84.821 Immunodeficiency due to drugs; N39.0 Urinary tract infection, site not specified; J90 Pleural effusion, not elsewhere classified; N17.9 Acute kidney failure, unspecified; W19.XXXA Unspecified fall, initial encounter; N18.30 Chronic kidney disease, stage 3 unspecified; F03.90 Unspecified dementia, unspecified severity, without behavioral disturbance, psychotic disturbance, mood disturbance, and anxiety; D64.9 Anemia, unspecified; E78.5 Hyperlipidemia, unspecified; K21.9 Gastro-esophageal reflux disease without esophagitis; M10.9 Gout, unspecified; Z86.718 Personal history of other venous thrombosis and embolism; E21.3 Hyperparathyroidism, unspecified; Z85.828 Personal history of other malignant neoplasm of skin; T45.1X5A Adverse effect of antineoplastic and immunosuppressive drugs, initial encounter; E55.9 Vitamin D deficiency, unspecified; Z86.19 Personal history of other infectious and parasitic diseases; B96.20 Unspecified Escherichia coli [E. coli] as the cause of diseases classified elsewhere; B96.1 Klebsiella pneumoniae [K. pneumoniae] as the cause of diseases classified elsewhere; Z79.899 Other long term (current) drug therapy; Z87.01 Personal history of pneumonia (recurrent); I46.9 Cardiac arrest, cause unspecified; I95.9 Hypotension, unspecified; Z51.5 Encounter for palliative care; Z66 Do not resuscitate
CPT/HCPCS: 12345; 32555; 36415; 36416; 36569; 36592; 36600; 51702; 51798; 70450; 70486; 71045; 71250; 72125; 73080; 73502; 73552; 74176; 76000; 76604; 76770; 80048; 80051; 80053; 80202; 80500; 81001; 82306; 82310; 82330; 82436; 82465; 82550; 82570; 82575; 82728; 82805; 82945; 82962; 83516; 83540; 83550; 83605; 83615; 83735; 83970; 84100; 84133; 84145; 84156; 84157; 84300; 85014; 85018; 85025; 85610; 86038; 86060; 86225; 86235; 86803; 86850; 86900; 86920; 87040; 87086; 87106; 87641; 89050; 90935; 92610; 93005; 93970; 94640; 94660; 94762; 96365; 96372; 96375; 97110; 97161; 97165; 97530; 97535; 99283; C1713; C1751; J0360; J0610; J0637; J0690; J0743; J1170; J1644; J1815; J1940; J1956; J2020; J2060; J2270; J2405; J2704; J2916; J3010; J3370; J3475; J3490; J3535; J7030; J7050; J7512; J7517; J7626; P9016; Q3014